=== PATIENT | female | born 1965 | race Two or more races ===

== ENCOUNTER 2020-07-26 09:14 | Outpatient (REF) | payer MEDICAID, SELFPAY ==
[2020-07-26 10:14] LABS: MANUAL DIFF FLAG NO
[2020-07-26 10:22] LABS: Basophils Percent Auto 0.4 % (0-2); Eosinophils Absolute Auto 0.2 X10*3/uL (0.0-0.4); Eosinophils Percent Auto 2.5 % (0-4); Hematocrit 30.2 % (37-47); Hemoglobin 9.8 g/dl (12.0-16.0); Imm Gran Abs Auto 0.01 X10*3/uL (0.00-0.03); Imm Gran Pct Auto 0.1 % (0.0-0.4); Lymphocytes Absolute Auto 2.2 X10*3/uL (1.2-4.9); Lymphocytes Percent Auto 28.3 % (20-40); Mean Corpuscular HGB Conc 32.5 g/dl (31.0-35.0); Mean Corpuscular Hemoglobin 28.7 pg (27.0-33.0); Mean Corpuscular Volume 88.3 fL (80-98); Mean Platelet Volume 10.4 fL (9.4-12.3); Monocytes Absolute Auto 0.6 X10*3/uL (0.1-1.2); Monocytes Percent Auto 7.4 % (2-11); Neutrophils Absolute Auto 4.7 X10*3/uL (2.0-8.3); Neutrophils Percent Auto 61.3 % (45-73); Platelet Count 215 X10*3/uL (160-400); Red Blood Count 3.42 X10*6/uL (4.20-5.50); White Blood Count 7.6 X10*3/uL (4.8-10.8)
[2020-07-26 10:46] LABS: Albumin Level 3.6 g/dL (3.5-5.0); Anion Gap 12 (12-20); Blood Urea Nitrogen 31 mg/dL (9-16); Calcium 8.7 mg/dL (8.4-10.2); Carbon Dioxide 29 mmol/L (22-29); Chloride 103 mmol/L (96-108); Estimated Glomerular Filt Rate 23; Phosphorus 3.6 mg/dL (2.7-4.5); Potassium 4.9 mmol/l (3.3-5.1); Sodium 139 mmol/L (135-145)
[2020-07-26 11:14] LABS: Renal w Reflex Lab Use Only Order verified
[2020-07-29 19:31] LABS: Calcium (PTHI) 9.2 mg/dL (8.6-10.4); PTHI 111 pg/mL (14-64)
== END 2020-07-26 09:15 | disposition home or self-care (01) ==
LOC: HO.LAB 09:14
PROVIDERS: PCP Family Medicine; Visit Provider Internal Medicine Nephrology
DX: E11.22 Type 2 diabetes mellitus with diabetic chronic kidney disease (principal); I12.9 Hypertensive chronic kidney disease with stage 1 through stage 4 chronic kidney disease, or unspecified chronic kidney disease; N18.30 Chronic kidney disease, stage 3 unspecified; E11.21 Type 2 diabetes mellitus with diabetic nephropathy
CPT/HCPCS: 36415; 80051; 82040; 82310; 82565; 83970; 84100; 84520; 85025

== ENCOUNTER 2020-09-18 12:59 | Outpatient (REF) | payer MEDICAID, SELFPAY | END 2020-09-18 13:00 | disposition home or self-care (01) | LOC: HO.LAB 12:59 | PROVIDERS: PCP Family Medicine; Visit Provider Internal Medicine | DX: Z20.828 Contact with and (suspected) exposure to other viral communicable diseases (principal) | CPT/HCPCS: C9803; U0003 ==

== ENCOUNTER 2020-10-10 12:17 | Outpatient (REF) | payer MEDICAID, SELFPAY ==
--- NOTE | 2020-10-10 12:21 | MM_ITS ---
EXAMINATION: MM SCREENING DIGITAL BREAST TOMOSYNTHESIS, BILATERAL CLINICAL INFORMATION: Screening. Asymptomatic. The lifetime risk of breast cancer based on the Tyrer-Cuzick Model is 5%. COMPARISON: Mammography: 02/24/2018, 08/23/2017, 02/17/2017, 02/09/2017 TECHNIQUE: Digital breast tomosynthesis is performed in both the craniocaudal and mediolateral oblique views along with computer-aided detection (CAD). Synthesized 2D images are generated from the tomosynthesis. FINDINGS: There are scattered areas of fibroglandular density (ACR BI-RADS breast composition Category b). There are no significant masses, abnormal calcifications, or other abnormalities. Parenchymal pattern is similar to prior exams. Again, there is a stable asymmetric density posterior outer left breast on CC view previously under surveillance. There is no correlate on the MLO projection or interval developing density. Scattered bilateral round and vascular calcifications are present. No significant changes. MM/MM tomosynthesis screening BI IMPRESSION: There are no significant changes from prior exams. ASSESSMENT: BI-RADS 2: Benign RECOMMENDATION: Routine annual mammography screening. This patient's information was entered into a reminder system with a target due date for their next mammogram.
== END 2020-10-10 12:18 | disposition home or self-care (01) ==
LOC: HO.MAMMO 12:17
PROVIDERS: PCP Family Medicine; Visit Provider Family Medicine
DX: Z12.31 Encounter for screening mammogram for malignant neoplasm of breast (principal)
CPT/HCPCS: 77063; 77067

== ENCOUNTER 2021-06-12 12:22 | Outpatient (REF) | payer MEDICAID, SELFPAY | END 2021-06-12 12:23 | disposition home or self-care (01) | LOC: HO.LAB 12:22 | PROVIDERS: PCP Family Medicine; Visit Provider Internal Medicine | DX: Z20.822 Contact with and (suspected) exposure to COVID-19 (principal) | CPT/HCPCS: C9803; U0003; U0005 ==

== ENCOUNTER → 2022-06-26 20:00 | Outpatient (REF) | payer MEDICAID, SELFPAY | LOC: HO.SL 20:00 | PROVIDERS: Visit Provider Family Medicine | DX: G47.33 Obstructive sleep apnea (adult) (pediatric) (principal) | CPT/HCPCS: 95811 ==

== ENCOUNTER 2022-08-11 11:15 | Outpatient (REF) | payer MEDICAID, SELFPAY ==
--- NOTE | ~2022-08-11 | XR_ITS ---
EXAMINATION: XR CHEST CLINICAL INFORMATION: Dyspnea COMPARISON: Chest radiographs 05/15/2019 TECHNIQUE: 2 views of the chest were obtained. FINDINGS: The cardiopericardial silhouette is mildly enlarged. The vascularity is normal. There is no vascular congestion, airspace consolidation, groundglass opacity, or effusion. The hilar and mediastinal contours are normal. No acute bony abnormality. Again, multilevel degenerative changes thoracic spine with mild dextrocurvature. Bilateral cervical ribs. XR/XR chest 2V IMPRESSION: Mildly enlarged cardiopericardial silhouette. Lungs clear.
== END 2022-08-11 11:16 | disposition home or self-care (01) ==
LOC: HO.XRAY 11:15
PROVIDERS: PCP Family Medicine; Visit Provider Family Medicine
DX: R06.00 Dyspnea, unspecified (principal)
CPT/HCPCS: 71046

== ENCOUNTER → 2022-08-19 09:01 | Outpatient (REF) | payer MEDICAID, SELFPAY ==
--- NOTE | 2022-08-19 09:05 | CA_ITS ---
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 The calculated ejection fraction is 22% by biplane method. - The inferoseptal wall, the basal anteroseptal, and mid anteroseptal segments are akinetic. - There is severe global hypokinesis. - No obvious valvular pathology seen on this study. Findings Procedure Information Contrast agent, definity, is being given per protocol without apparent complications. Left Ventricle Moderately increased left ventricular cavity size. There is mildly increased left ventricular wall thickness. The left ventricular systolic function is severely decreased. The calculated ejection fraction is 22% by biplane method. There is severe global hypokinesis. Diastolic function is indeterminate on the basis of available data. Wall Motion Rest Echo Findings The inferoseptal wall, the basal anteroseptal, and mid anteroseptal segments are akinetic. Right Ventricle Normal right ventricular cavity size and systolic function. Atria The left atrium is mildly dilated. The right atrium is normal in size. Aortic Valve There is a normal trileaflet aortic valve. There is no aortic valve stenosis. There is no aortic valve regurgitation. Mitral Valve There is mild mitral annular calcification. There is mild mitral valve regurgitation. There is no mitral valve stenosis. Pulmonic Valve The pulmonic valve is likely normal. Tricuspid Valve There is trace tricuspid valve regurgitation. There is no evidence of pulmonary hypertension. Great Vessels The asc aorta is normal in size. Venous The inferior vena cava is normal in size and collapses greater than 50% with inspiration. Pericardium/Pleural There is no evidence of pericardial effusion. Prior Study Comparison No prior study available for comparison. Recommendations, Care & Conclusions No obvious valvular pathology seen on this study. Measurements 2D Linear Measurements IVSd: 1.27 0.6-0.9/0.6-1.0 cm LVIDd: 6.11 3.9-5.3/4.2-5.9 cm LVIDd Index: 3.43 2.4-3.2/2.2-3.1 cm/m2 LVIDs: 5.16 2.0-3.6 cm LVPWd: 1.07 0.7-1.1 cm LA Diam: 3.70 2.7-3.8/3.0-4.0 cm LAIDs Index: 2.08 1.5-2.3 cm/m2 LV Mass: 390.26 67-162/88-224 g LV Mass Index: 219.25 43-95/49-115 g/m2 LVOT Diam: 2.10 3.0+(-)1.3 cm 2D Systolic Function EF 4C: 25.50 >55% EF 2C: 20.40 >55% EF BiP: 22.30 >55% Mitral Valve MV VTI: 0.25 MV Pk Jhony: 1.62 MV Mn Jhony: 1.14 MV Pk Grad: 10.00 MV Mn Grad: 6.00 MV Pk E: 1.49 MV PK A: 0.44 MV Decel Time: 120.00 E/A: 3.40 PHT: 35.00 MVA PHT: 6.29 MVA Continuity: 2.28 Decel [place]: 12.41 Aortic Valve AoV Pk Jhony: 1.42 AoV Mn Jhony: 1.01 AoV VTI: 0.25 AoV Pk Grad: 8.00 Aov Mn Grad: 5.00 SHARMAINE Cont.VTI: 2.24 LVOT LVOT Pk Jhony: 0.95 LVOT Mn Jhony: 0.64 LVOT VTI: 0.16 LVOT Pk Grad: 4.00 LVOT Mn Grad: 2.00 LVOT Diam: 2.10 LVOT Area: 3.46 Diastolic Function MV Pk E: 1.49 MV Pk A: 0.44 E/A: 3.40 Right Ventricle TAPSE (mm): 20.90 TVS' Jhony: 13.20 Tricuspid Valve TR Pk Jhony: 1.71 TR Pk Grad: 12.00 RA Press: 3.00 Great Vessels Aorta Sinus of Valsalva: 3.17 2.0-3.[address] Ridge: 2.19 1.7-3.4 cm Ao Asc: 3.30 2.1-3.4 cm Updated in Other Vendor System with Status of Final Joselito Armenta MD electronically signed on 08/22/2022 12:38:44 PM with status of Final
== END ==
LOC: HO.CARD 09:01
PROVIDERS: PCP Family Medicine; Visit Provider Family Medicine
DX: R06.00 Dyspnea, unspecified (principal)
CPT/HCPCS: 93306; Q9957

== ENCOUNTER 2022-10-15 09:48 | Outpatient (REF) | payer MEDICAID, SELFPAY ==
--- NOTE | ~2022-10-15 | MM_ITS ---
EXAMINATION: MM SCREENING DIGITAL BREAST TOMOSYNTHESIS, BILATERAL CLINICAL INFORMATION: Screening. Asymptomatic. The lifetime risk of breast cancer based on the Tyrer-Cuzick Model is 5%. COMPARISON: Mammography: October 10, 2020 and studies dating back to October 08, 2011. TECHNIQUE: Digital breast tomosynthesis is performed in both the craniocaudal and mediolateral oblique views along with computer-aided detection (CAD). Synthesized 2D images are generated from the tomosynthesis. FINDINGS: There are scattered areas of fibroglandular density (ACR BI-RADS breast composition Category b). There are no new significant masses, abnormal calcifications, or other abnormalities. Some stable circumscribed densities are seen within the right breast. Stable region of asymmetric density is seen about the lateral aspect of the left breast. MM/MM tomosynthesis screening BI IMPRESSION: No significant changes from prior exam. ASSESSMENT: BI-RADS 2: Benign RECOMMENDATION: Routine annual mammography screening. This patient's information was entered into a reminder system with a target due date for their next mammogram.
== END 2022-10-15 09:49 | disposition home or self-care (01) ==
LOC: HO.MAMMO 09:48
PROVIDERS: Visit Provider Family Medicine
DX: Z12.31 Encounter for screening mammogram for malignant neoplasm of breast (principal)
CPT/HCPCS: 77063; 77067

== ENCOUNTER 2023-03-13 10:24 | Emergency (ER) | payer MEDICAID, SELFPAY ==
--- NOTE | ~2023-03-13 | XR_ITS ---
EXAMINATION: XR LUMBOSACRAL SPINE CLINICAL INFORMATION: Fall, pain COMPARISON: None available. TECHNIQUE: Three views of the lumbosacral spine. FINDINGS: There is normal lumbar lordosis. The vertebral alignment and disc is normal. There is mild loss of superior endplate L3 vertebra of indeterminate age. Mild ventral and lateral spondylosis seen throughout lumbar spine. The paravertebral soft tissues are normal. There is mild sclerosis right inferior SI joint likely sacroiliitis. XR/XR lumbar spine 2-3V IMPRESSION: 1. Mild loss of superior endplate L3 vertebra of indeterminate age. Consider CT or bone scan for further evaluation. No additional bony deformity seen to suspect any fracture There is mild ventral and lateral spondylosis lumbar spine. Mild
[2023-03-13 10:29] VITALS: BP 144/79; PULSE 91; RESP 18; TEMP 35.8; O2SAT 98; BMI 32.3
--- NOTE | 2023-03-13 11:12 | ED.FALL ---
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 Denies hitting her head or loss of consciousness. Patient reports could continued low back pain since her fall. She denies any radiation of pain. No numbness or tingling in the extremities. No numbness in the groin. No bowel or bladder incontinence. No fevers or chills. Patient is ambulatory. Related Data Previous Rx's Medication Instructions Recorded acetaminophen 325 mg tablet 650 mg PO Q4H PRN pain #30 tabs 03/13/23 (Tylenol) cyclobenzaprine 10 mg tablet 10 mg PO TID PRN muscle spasm #15 03/13/23 tabs lidocaine 5 % topical patch 1 patch topical DAILY #15 ea 03/13/23 (Lidoderm) Allergies Allergy/AdvReac Type Severity Reaction Status Date / Time No Known Allergies Allergy Verified 03/13/23 10:31 [No Known Allergies*] Review of Systems Review of Systems: Yes all other systems are reviewed and are negative Constitutional: Constitutional: Reports no additional constitutional complaints, Denies body ache(s), Denies chills, Denies fever(s), Denies headache(s) and Denies weakness Eyes: Eyes: Reports no additional eye complaints and Denies change in vision ENT: Reports system reviewed and no additional complaints, except as documented, Denies dizziness, Denies headache(s), Denies nasal congestion, Denies nasal discharge and Denies neck pain Cardiovascular: Cardiovascular: Reports no additional cardiovascular complaints, Denies chest pain, Denies leg edema and Denies dyspnea Respiratory: Respiratory: Reports no additional respiratory complaints, Denies cough and Denies dyspnea Gastrointestinal: Gastrointestinal: Reports no additional gastrointestinal complaints, Denies abdominal pain, Denies diarrhea, Denies nausea and Denies vomiting Genitourinary: Genitourinary: Reports no additional female genitourinary complaints and Denies urinary incontinence Musculoskeletal: Musculoskeletal: Reports no additional musculoskeletal complaints, Reports back pain, Denies arthralgias, Denies joint swelling, Denies neck pain, Denies numbness and Denies tingling Integumentary/Breasts: Skin/Breast: Reports system reviewed and no additional complaints, except as docu and Denies rash Neurologic: Reports system reviewed and no additional complaints, except as documented, Denies Abnormal speech present, Denies dizziness, Denies headache(s), Denies numbness, Denies tingling and Denies weakness PMFSH Past Medical History Attestation statement: The following information was validated with the patient. Source: old records reviewed and nursing notes reviewed Social History Social History Advance Directives: No Advance Directives Information Provided: No Physical Exam Vital Signs: Vital Signs: Last Vital Signs Temp 96.4 F L 03/13/23 10:29 Pulse 91 03/13/23 10:29 Resp 18 03/13/23 10:29 BP 144/79 H 03/13/23 10:29 Pulse Ox 98 03/13/23 10:29 O2 Del Method Room Air 03/13/23 10:29 BMI result Body Mass Index 32.3 Const: General: cooperative, healthy appearing, comfortable and no acute distress Orientation/consciousness: patient oriented x3 Limitations: no limitations HEENT: Head: Yes normal to inspection Ears: hearing grossly normal bilaterally General nose exam: Normal external nose present Face and sinus: Yes normal facial exam Mouth: Normal oral and palatal mucosa present Throat: Yes posterior oropharynx normal Eyes: General: appearance normal, both eyes and all related structures Pupils: Equal, round and reactive pupils present Neck: Neck: Yes normal visual inspection Chest: Chest palpation & inspection: normal inspection of the chest Resp: Effort & Inspection: normal respiratory effort Auscultation: clear to auscultation bilaterally Cardio: Rate: regular rate Rhythm: regular rhythm Peripheral pulses: Peripheral pulses 2+ throughout GI: Inspection: Yes normal to inspection Palpation (GI): Soft to palpation and nontender Auscultation: normal bowel sounds Back/Spine/Pelvis: Other: Tenderness the lumbar mid spine with no step-offs deformities Thoracic/Lumbar Spine: thoracic and lumbar spine normal to inspection Skin: General skin exam: no rashes or lesions noted Neuro: General: patient oriented x3, no focal motor deficits and normal sensation to monofilament Cranial nerves: Yes Equal, round and reactive pupils present Cognition (Neuro): normal cognition Speech: No Abnormal speech present Gait exam (Neuro): Normal gait present Motor exam (neuro): 5/5 motor strength present throughout Sensory Exam: Normal double simultaneous stimulation for sensation Deep tendon reflexes (DTR's): Right patellar reflex intensity grade: 2+ and Left patellar reflex intensity grade: 2+ Extrem: General: Yes normal to inspection Course Course Course Narrative: X-ray shows a possible compression fracture L3 age indeterminate. This was discussed with the patient. She will likely need to have additional imaging done outpatient. In the meantime will send her home with pain control. Reviewed worrisome signs and symptoms when to return to the emergency room. Comfortable plan for discharge home. Medications Administered Discontinued Medications Generic Name Dose Route Start Last Admin Trade Name Freq PRN Reason Stop Dose Admin Ketorolac Tromethamine 30 mg 03/13/23 11:25 03/13/23 11:28 Ketorolac Tromethamine 30 Mg/Ml Vial IM 03/13/23 11:26 30 mg ONCE ONE Administration Medical Decision Making Medical Decision Making [facility] Narrative: 57-year-old female here with lower back pain after slip and fall 4 days ago There is tenderness the mid spine. Will check x-ray No neurological deficits or red flag symptoms Will give Toradol IM Differential Diagnosis Differential Diagnoses: The differential diagnosis associated with the presentation includes Contusion Low concern for cord compression, cauda equina, fracture, epidural abscess, malignancy, renal colic, pyelonephritis, AAA Independent Interpretation I performed an independent interpretation of an: Plain X-Ray Interpretation: I independently reviewed the x-ray and agree with radiologist's report Radiology Impression Discussion of test interpretation with radiology: I have reviewed the radiologist's reading. Radiologist Impression: s of the lumbosacral spine. FINDINGS: There is normal lumbar lordosis. The vertebral alignment and disc is normal. There is mild loss of superior endplate L3 vertebra of indeterminate age. Mild ventral and lateral spondylosis seen throughout lumbar spine. The paravertebral soft tissues are normal. There is mild sclerosis right inferior SI joint likely sacroiliitis. XR/XR lumbar spine 2-3V IMPRESSION: 1.? Mild loss of superior endplate L3 vertebra of indeterminate age. Consider CT or bone scan for further evaluation. No additional bony deformity seen to suspect any fracture ?There is mild ventral and lateral spondylosis lumbar spine. Mild ? Discharge Plan Discharge Clinical Impression: Lumbar contusion Patient Disposition: Home, Self-Care Instructions: Acute Low Back Pain (ED), Contusion in Adults (ED) Additional Instructions: Ice to the area Gentle stretching No heavy lifting or bending Follow-up with doctor for any persistent symptoms Return for numbness in the groin, bowel incontinence, fever There may be a small compression fracture in your lower spine. It is difficult to determine if this is a new finding or not. We recommend that you follow-up with your doctor for further evaluation Hielo a la josefina Estiramiento suave Sin levantar objetos pesados ??ni agacharse Seguimiento con el m?dico para cualquier s?ntoma persistente. Regrese por entumecimiento en la sherif, incontinencia intestinal, fiebre Puede cynthia enio madison?a fractura por compresi?n en la parte inferior de la columna. Es dif?cil determinar si se trata de un hallazgo nuevo o no. Le recomendamos que faye un seguimiento con luna m?dico para enio evaluaci?n adicional. Prescriptions: New lidocaine [Lidoderm] 5 % adhesive patch,medicated 1 patch topical DAILY Qty: 15 0RF Rx Instructions: leave on most painful area for up to 12 hrs cyclobenzaprine 10 mg tablet 10 mg PO TID PRN (Reason: muscle spasm) Qty: 15 0RF acetaminophen [Tylenol] 325 mg tablet 650 mg PO Q4H PRN (Reason: pain) Qty: 30 0RF Referrals: Anne Talamantes DO [Primary Care Provider] - 1 week Print Language: [place]
[2023-03-13] MEDS: Ketorolac Tromethamine 30 MG/ML VIAL IM (11:28)
== END 2023-03-13 12:42 | disposition home or self-care (01) ==
PROVIDERS: Emergency Provider Emergency Medicine; PCP Family Medicine
DX: S30.0XXA Contusion of lower back and pelvis, initial encounter (principal); W01.0XXA Fall on same level from slipping, tripping and stumbling without subsequent striking against object, initial encounter; Y93.E5 Activity, floor mopping and cleaning; Y92.010 Kitchen of single-family (private) house as the place of occurrence of the external cause; Y99.9 Unspecified external cause status
CPT/HCPCS: 72100; 96372; 99284; J1885

== ENCOUNTER 2023-06-02 14:43 | Outpatient (REF) | payer MEDICAID, SELFPAY ==
[2023-06-02 15:13] LABS: MANUAL DIFF FLAG NO
[2023-06-02 15:38] LABS: Basophils Absolute Auto 0.1 X10*3/uL (0.0-0.2); Basophils Percent Auto 0.6 % (0-2); Eosinophils Absolute Auto 0.4 X10*3/uL (0.0-0.4); Eosinophils Percent Auto 4.7 % (0-4); Hematocrit 29.3 % (37.0-47.0); Hemoglobin 9.5 g/dl (12.0-16.0); Imm Gran Abs Auto 0.03 X10*3/uL (0.00-0.03); Imm Gran Pct Auto 0.4 % (0.0-0.4); Lymphocytes Absolute Auto 1.3 X10*3/uL (1.2-4.9); Lymphocytes Percent Auto 16.9 % (20-40); Mean Corpuscular HGB Conc 32.4 g/dl (31.0-35.0); Mean Corpuscular Hemoglobin 28.5 pg (27.0-33.0); Mean Platelet Volume 10.2 fL (9.4-12.3); Monocytes Absolute Auto 0.5 X10*3/uL (0.1-1.2); Monocytes Percent Auto 6.5 % (2-11); Neutrophils Absolute Auto 5.6 x10*3/uL (2.0-8.3); Neutrophils Percent Auto 70.9 % (45-73); Platelet Count 187 X10*3/uL (160-400); Red Blood Count 3.33 X10*6/uL (4.20-5.50); Red Cell Distribution Width 13.6 % (11.0-16.0); White Blood Count 7.9 X10*3/uL (4.8-10.8)
[2023-06-02 17:12] LABS: Vitamin D 25-OH Total 37.7 ng/mL (>30)
[2023-06-02 17:51] LABS: Anion Gap 14 (12-20); Blood Urea Nitrogen 55 mg/dL (9-16); Calcium 9.4 mg/dL (8.4-10.2); Carbon Dioxide 24 mmol/L (22-29); Chloride 108 mmol/L (96-108); Estimated Glomerular Filt Rate 9; Iron 38 mcg/dL (30-160); Percent Iron Saturation 21 % (15-50); Phosphorus 3.9 mg/dL (2.7-4.5); Sodium 141 mmol/L (135-145); Total Iron Binding Capacity 185 mcg/dL (228-428); Unsaturated Iron Binding 147 ug/dL
[2023-06-04 15:54] LABS: Calcium (PTHI) 8.8 mg/dL (8.6-10.4); PTHI 454 pg/mL (16-77)
== END 2023-06-02 14:44 | disposition home or self-care (01) ==
LOC: HO.LAB 14:43
PROVIDERS: PCP Family Medicine; Visit Provider Internal Medicine Nephrology
DX: I12.9 Hypertensive chronic kidney disease with stage 1 through stage 4 chronic kidney disease, or unspecified chronic kidney disease (principal); E11.22 Type 2 diabetes mellitus with diabetic chronic kidney disease; N18.4 Chronic kidney disease, stage 4 (severe); E11.21 Type 2 diabetes mellitus with diabetic nephropathy
CPT/HCPCS: 36415; 80051; 82306; 82310; 82565; 83540; 83970; 84100; 84520; 85025

== ENCOUNTER 2023-08-06 10:40 | Outpatient (REF) | payer MEDICAID, SELFPAY ==
[2023-08-06 11:07] LABS: MANUAL DIFF FLAG NO
[2023-08-06 12:04] LABS: Basophils Percent Auto 0.6 % (0-2); Eosinophils Absolute Auto 0.2 X10*3/uL (0.0-0.4); Eosinophils Percent Auto 3.2 % (0-4); Hematocrit 32.8 % (37.0-47.0); Hemoglobin 10.6 g/dl (12.0-16.0); Imm Gran Abs Auto 0.01 X10*3/uL (0.00-0.03); Imm Gran Pct Auto 0.2 % (0.0-0.4); Lymphocytes Absolute Auto 1.6 X10*3/uL (1.2-4.9); Lymphocytes Percent Auto 24.3 % (20-40); Mean Corpuscular HGB Conc 32.3 g/dl (31.0-35.0); Mean Corpuscular Hemoglobin 28.5 pg (27.0-33.0); Mean Corpuscular Volume 88.2 fL (80.0-98.0); Mean Platelet Volume 10.5 fL (9.4-12.3); Monocytes Absolute Auto 0.5 X10*3/uL (0.1-1.2); Monocytes Percent Auto 7.6 % (2-11); Neutrophils Absolute Auto 4.2 x10*3/uL (2.0-8.3); Neutrophils Percent Auto 64.1 % (45-73); Platelet Count 158 X10*3/uL (160-400); Red Blood Count 3.72 X10*6/uL (4.20-5.50); Red Cell Distribution Width 13.1 % (11.0-16.0); White Blood Count 6.5 X10*3/uL (4.8-10.8)
[2023-08-06 12:53] LABS: Anion Gap 13 (12-20); Blood Urea Nitrogen 60 mg/dL (9-16); Calcium 9.4 mg/dL (8.4-10.2); Carbon Dioxide 24 mmol/L (22-29); Chloride 106 mmol/L (96-108); Glucose Random 92 mg/dL (60-115); Potassium 4.7 mmol/L (3.3-5.1); Sodium 138 mmol/L (135-145)
[2023-08-06 13:52] LABS: Estimated Glomerular Filt Rate 10
[2023-08-06 15:22] LABS: INTERNATIONAL NORM RATIO 0.9 (0.9-1.1); Prothrombin Time 11.1 SEC (11.1-13.3)
== END 2023-08-06 10:41 | disposition home or self-care (01) ==
LOC: HO.LAB 10:40
PROVIDERS: PCP Family Medicine; Visit Provider Internal Medicine Cardiovascular Disease
DX: I50.22 Chronic systolic (congestive) heart failure (principal)
CPT/HCPCS: 36415; 80048; 85025; 85610

== ENCOUNTER 2023-09-22 09:59 | Outpatient (REF) | payer MEDICAID, SELFPAY ==
[2023-09-22 10:20] LABS: MANUAL DIFF FLAG NO
[2023-09-22 11:11] LABS: Basophils Percent Auto 0.5 % (0-2); Eosinophils Absolute Auto 0.2 X10*3/uL (0.0-0.4); Eosinophils Percent Auto 3.8 % (0-4); Hematocrit 28.6 % (37.0-47.0); Hemoglobin 9.3 g/dl (12.0-16.0); Imm Gran Abs Auto 0.01 X10*3/uL (0.00-0.03); Imm Gran Pct Auto 0.2 % (0.0-0.4); Lymphocytes Absolute Auto 1.6 X10*3/uL (1.2-4.9); Lymphocytes Percent Auto 28.3 % (20-40); Mean Corpuscular HGB Conc 32.5 g/dl (31.0-35.0); Mean Corpuscular Hemoglobin 28.3 pg (27.0-33.0); Mean Corpuscular Volume 86.9 fL (80.0-98.0); Mean Platelet Volume 10.2 fL (9.4-12.3); Monocytes Absolute Auto 0.5 X10*3/uL (0.1-1.2); Monocytes Percent Auto 9.5 % (2-11); Neutrophils Absolute Auto 3.2 x10*3/uL (2.0-8.3); Neutrophils Percent Auto 57.7 % (45-73); Platelet Count 126 X10*3/uL (160-400); Red Blood Count 3.29 X10*6/uL (4.20-5.50); Red Cell Distribution Width 13.3 % (11.0-16.0); White Blood Count 5.6 X10*3/uL (4.8-10.8)
[2023-09-22 11:45] LABS: Parathyroid Hormone Intact 772.3 pg/mL (8.7-77.1)
[2023-09-22 11:57] LABS: Anion Gap 12 (12-20); Blood Urea Nitrogen 63 mg/dL (9-16); Calcium 8.5 mg/dL (8.4-10.2); Carbon Dioxide 23 mmol/L (22-29); Chloride 107 mmol/L (96-108); Estimated Glomerular Filt Rate 8; Iron 49 mcg/dL (30-160); Percent Iron Saturation 28 % (15-50); Phosphorus 5.9 mg/dL (2.7-4.5); Potassium 4.3 mmol/L (3.3-5.1); Sodium 138 mmol/L (135-145); Total Iron Binding Capacity 174 mcg/dL (228-428); Unsaturated Iron Binding 125 ug/dL
[2023-09-22 12:08] LABS: Vitamin D 25-OH Total 38.6 ng/mL (>30)
== END 2023-09-22 10:00 | disposition home or self-care (01) ==
LOC: HO.LAB 09:59
PROVIDERS: PCP Family Medicine; Visit Provider Internal Medicine Nephrology
DX: E11.21 Type 2 diabetes mellitus with diabetic nephropathy (principal); E11.22 Type 2 diabetes mellitus with diabetic chronic kidney disease; I12.9 Hypertensive chronic kidney disease with stage 1 through stage 4 chronic kidney disease, or unspecified chronic kidney disease; N18.4 Chronic kidney disease, stage 4 (severe)
CPT/HCPCS: 36415; 80051; 82306; 82310; 82565; 83540; 83970; 84100; 84520; 85025

== ENCOUNTER 2023-10-22 14:51 | Outpatient (AMB) | payer MEDICAID, SELFPAY ==
--- NOTE | 2023-10-22 14:52 | HO.NEPHOV ---
HPI HPI Comments History of Present Illness Details I would the privilege of seeing Jazmine in follow-up of her chronic kidney disease and hypertension. She has a diagnosis of cardiomyopathy and has been closely followed up by reel winder, given her ejection fraction was 20%. At the time she was on lisinopril which was discontinued and was started on Entresto. She also has been on Farxiga. Her blood sugars have been better but recently her serum creatinine has gone up significantly and she was asked to hold her Entresto all together. She denies any hypoglycemia, orthostatic symptoms, nausea, vomiting, diarrhea or urinary symptoms. She has not taken any nonsteroidal anti-inflammatories. All other systems have been reviewed and were negative. [facility] Medical History (Updated 10/29/23 @ 14:24 by Rogerio Martinez MD) Cardiomyopathy Chronic kidney disease, stage 4 (severe) Hypertension Type 2 diabetes mellitus with diabetic nephropathy Vital Signs 10/22/23 14:54 Height 5 ft 1 in Weight 177 lb 4 oz BMI 33.5 BP 150/80 H Blood Pressure Location Rt brachial Pulse 93 Pulse Source Pulse Oximeter Pulse Oximetry (%) 98 Oxygen Delivery Method Room Air Physical Exam Vital Signs: Last Vital Signs Pulse 93 10/22/23 14:54 BP 150/80 H 10/22/23 14:54 Pulse Ox 98 10/22/23 14:54 Oxygen Delivery Method Room Air 10/22/23 14:54 BMI result Body Mass Index 33.5 Const General: comfortable and no acute distress Orientation/consciousness: patient oriented x3 HEENT Head: Yes normocephalic Mouth: Normal oral and palatal mucosa present Eyes EOM: EOMs intact bilaterally Neck Neck: Yes supple Resp Auscultation: clear to auscultation bilaterally Cardio Jugular venous distension: no JVD Rate: regular rate GI Palpation (GI): Soft to palpation Auscultation: normal bowel sounds General: Yes no CVA tenderness Back/Spine/Pelvis Back: no CVA tenderness Skin General skin exam: no rashes or lesions noted Neuro General: patient oriented x3 and moves all extremities Extrem General: Yes no pedal edema Assessment & Plan Assessment & Plan (1) Chronic kidney disease, stage 4 (severe): Code(s): N18.4 - Chronic kidney disease, stage 4 (severe) (2) Hypertension: Code(s): I10 - Essential (primary) hypertension Qualifiers: Hypertension type: primary hypertension Qualified Code(s): I10 - Essential (primary) hypertension (3) Cardiomyopathy: Code(s): I42.9 - Cardiomyopathy, unspecified Qualifiers: Cardiomyopathy type: other Qualified Code(s): I42.8 - Other cardiomyopathies (4) Secondary hyperparathyroidism (of renal origin): Code(s): N25.81 - Secondary hyperparathyroidism of renal origin (5) Diabetic nephropathy: Code(s): E11.21 - Type 2 diabetes mellitus with diabetic nephropathy Qualifiers: Diabetes mellitus type: type 2 Qualified Code(s): E11.21 - Type 2 diabetes mellitus with diabetic nephropathy (6) Anemia in chronic kidney disease: Code(s): N18.9 - Chronic kidney disease, unspecified; D63.1 - Anemia in chronic kidney disease Qualifiers: Chronic kidney disease stage: stage 4 (severe) Qualified Code(s): N18.4 - Chronic kidney disease, stage 4 (severe); D63.1 - Anemia in chronic kidney disease Plan She has been having progression of her renal disease. She was on Entresto which has been on put on hold since her recent LORIN. I held her Farxiga given her current GFR. She had a renal biopsy in the past which showed diabetic nephropathy. She also has retinopathy and neuropathy. She does not take any nonsteroidal anti-inflammatory medications. Her blood pressure is at goal. Hopefully her current tubular injury will resolve and her serum creatinine will settle down to baseline. If not she will need referral(which I shall arrange) to vascular surgery for an AV fistula formation. She does not take her sodium in the diet. I did not make any other medication changes today. All questions answered. Follow-up blood work ordered. Follow-up appointment given. Orders: Orders Electrolytes Today I10 - Essential (primary) hypertension, N18.4 - Chronic kidney disease, stage 4 (severe) Complete Blood Count Auto Diff Today I10 - Essential (primary) hypertension, N18.4 - Chronic kidney disease, stage 4 (severe) Parathyroid Hormone Intact Today I10 - Essential (primary) hypertension, N18.4 - Chronic kidney disease, stage 4 (severe) Ferritin Today I10 - Essential (primary) hypertension, N18.4 - Chronic kidney disease, stage 4 (severe) Blood Urea Nitrogen Today I10 - Essential (primary) hypertension, N18.4 - Chronic kidney disease, stage 4 (severe) Creatinine Today I10 - Essential (primary) hypertension, N18.4 - Chronic kidney disease, stage 4 (severe) Vitamin D 25-OH Total Today I10 - Essential (primary) hypertension, N18.4 - Chronic kidney disease, stage 4 (severe) Phosphorus Today I10 - Essential (primary) hypertension, N18.4 - Chronic kidney disease, stage 4 (severe) IRON PROFILE Today I10 - Essential (primary) hypertension, N18.4 - Chronic kidney disease, stage 4 (severe) Coding Level of Care Code Est Pt Level 4 (85058) Diagnoses Chronic kidney disease, stage 4 (severe) N18.4 Primary hypertension I10 Hypertension type: primary hypertension Other cardiomyopathy I42.8 Cardiomyopathy type: other Secondary hyperparathyroidism (of renal origin) N25.81 Diabetic nephropathy associated with type 2 diabetes mellitus E11.21 Diabetes mellitus type: type 2 Anemia in stage 4 chronic kidney disease N18.4; D63.1 Chronic kidney disease stage: stage 4 (severe) Results Reviewed Nephrology Results: Hgb 9.7 g/dl (12.0-16.0) L 10/29/23 WBC 5.7 X10*3/uL (4.8-10.8) 10/29/23 Plt Count 156 X10*3/uL (160-400) L 10/29/23 Sodium 138 mmol/L (135-145) 10/29/23 Potassium 3.9 mmol/L (3.3-5.1) 10/29/23 Chloride 108 mmol/L (96-108) 10/29/23 Carbon Dioxide 22 mmol/L (22-29) 10/29/23 BUN 44 mg/dL (9-16) H 10/29/23 Creatinine 5.27 mg/dL (0.5-1.4) H* 10/29/23 Calcium 8.5 mg/dL (8.4-10.2) 09/22/23 Phosphorus 3.1 mg/dL (2.7-4.5) 10/29/23 PTH Intact 700.1 pg/mL (8.7-77.1) H 10/29/23
[2023-10-22 14:54] VITALS: BP 150/80; PULSE 93; O2SAT 98; BMI 33.5
== END 2023-10-22 15:22 | disposition home or self-care (01) ==
PROVIDERS: PCP Family Medicine; Visit Provider Internal Medicine Nephrology
DX: I12.9 Hypertensive chronic kidney disease with stage 1 through stage 4 chronic kidney disease, or unspecified chronic kidney disease (principal); N18.4 Chronic kidney disease, stage 4 (severe); I42.8 Other cardiomyopathies; N25.81 Secondary hyperparathyroidism of renal origin; E11.21 Type 2 diabetes mellitus with diabetic nephropathy; D63.1 Anemia in chronic kidney disease
CPT/HCPCS: 99214

== ENCOUNTER → 2023-10-22 14:51 | Outpatient (BNVA) | payer MEDICAID, SELFPAY | PROVIDERS: PCP Family Medicine; Visit Provider Internal Medicine Nephrology | DX: I12.9 Hypertensive chronic kidney disease with stage 1 through stage 4 chronic kidney disease, or unspecified chronic kidney disease (principal); E11.22 Type 2 diabetes mellitus with diabetic chronic kidney disease; N18.4 Chronic kidney disease, stage 4 (severe); D63.1 Anemia in chronic kidney disease; I42.8 Other cardiomyopathies; N25.81 Secondary hyperparathyroidism of renal origin | CPT/HCPCS: 99212 ==

== ENCOUNTER 2023-10-29 10:25 | Outpatient (REF) | payer MEDICAID, SELFPAY ==
[2023-10-29 10:44] LABS: MANUAL DIFF FLAG NO
[2023-10-29 11:02] LABS: Basophils Percent Auto 0.5 % (0-2); Eosinophils Absolute Auto 0.2 X10*3/uL (0.0-0.4); Eosinophils Percent Auto 3.7 % (0-4); Hematocrit 29.1 % (37.0-47.0); Hemoglobin 9.7 g/dl (12.0-16.0); Imm Gran Abs Auto 0.02 X10*3/uL (0.00-0.03); Imm Gran Pct Auto 0.3 % (0.0-0.4); Lymphocytes Absolute Auto 1.3 X10*3/uL (1.2-4.9); Lymphocytes Percent Auto 23.2 % (20-40); Mean Corpuscular HGB Conc 33.3 g/dl (31.0-35.0); Mean Corpuscular Hemoglobin 28.9 pg (27.0-33.0); Mean Corpuscular Volume 86.6 fL (80.0-98.0); Mean Platelet Volume 9.7 fL (9.4-12.3); Monocytes Absolute Auto 0.6 X10*3/uL (0.1-1.2); Monocytes Percent Auto 9.8 % (2-11); Neutrophils Absolute Auto 3.6 x10*3/uL (2.0-8.3); Neutrophils Percent Auto 62.5 % (45-73); Platelet Count 156 X10*3/uL (160-400); Red Blood Count 3.36 X10*6/uL (4.20-5.50); Red Cell Distribution Width 13.6 % (11.0-16.0); White Blood Count 5.7 X10*3/uL (4.8-10.8)
[2023-10-29 11:33] LABS: Parathyroid Hormone Intact 700.1 pg/mL (8.7-77.1)
[2023-10-29 11:36] LABS: Anion Gap 12 (12-20); Blood Urea Nitrogen 44 mg/dL (9-16); Carbon Dioxide 22 mmol/L (22-29); Chloride 108 mmol/L (96-108); Iron 47 mcg/dL (30-160); Percent Iron Saturation 26 % (15-50); Phosphorus 3.1 mg/dL (2.7-4.5); Potassium 3.9 mmol/L (3.3-5.1); Sodium 138 mmol/L (135-145); Total Iron Binding Capacity 179 mcg/dL (228-428); Unsaturated Iron Binding 132 ug/dL
[2023-10-29 11:38] LABS: Estimated Glomerular Filt Rate 8
[2023-10-29 11:54] LABS: Ferritin 88 ng/mL (10-250); Vitamin D 25-OH Total 39.2 ng/mL (>30)
== END 2023-10-29 10:26 | disposition home or self-care (01) ==
LOC: HO.LAB 10:25
PROVIDERS: PCP Family Medicine; Visit Provider Internal Medicine Nephrology
DX: I12.9 Hypertensive chronic kidney disease with stage 1 through stage 4 chronic kidney disease, or unspecified chronic kidney disease (principal); N18.4 Chronic kidney disease, stage 4 (severe)
CPT/HCPCS: 36415; 80051; 82306; 82565; 82728; 83540; 83970; 84100; 84520; 85025

== ENCOUNTER 2023-11-05 13:35 | Outpatient (AMB) | payer MEDICAID, SELFPAY ==
[2023-11-05 13:54] VITALS: BP 130/70; PULSE 92; O2SAT 97; BMI 32.4
--- NOTE | 2023-11-05 13:54 | HO.NEPHOV ---
HPI HPI Comments History of Present Illness Details I would the privilege of seeing Jazmine in follow-up of her chronic kidney disease and hypertension. She has a diagnosis of cardiomyopathy and has been closely followed up by director of agriculture, given her ejection fraction was 20%. At the time she was on lisinopril which was discontinued and was started on Entresto. She also has been on Farxiga. Her blood sugars have been better but recently her serum creatinine has gone up significantly and she was asked to hold her Entresto all together. Her Farxiga was discontinued at the last office visit. She denies any hypoglycemia, orthostatic symptoms, nausea, vomiting, diarrhea or urinary symptoms. She has not taken any nonsteroidal anti-inflammatories. She denies any uremic symptoms. All other systems have been reviewed and were negative [facility] Medical History (Updated 10/29/23 @ 14:24 by Rogerio Martinez MD) Cardiomyopathy Chronic kidney disease, stage 4 (severe) Hypertension Type 2 diabetes mellitus with diabetic nephropathy Vital Signs 11/05/23 13:54 Height 5 ft 1 in Weight 171 lb 8 oz BMI 32.4 BP 130/70 Blood Pressure Location Rt brachial Position Sitting Pulse 92 Pulse Source Pulse Oximeter Pulse Oximetry (%) 97 Oxygen Delivery Method Room Air Physical Exam Vital Signs: Last Vital Signs Pulse 92 11/05/23 13:54 BP 130/70 11/05/23 13:54 Pulse Ox 97 11/05/23 13:54 Oxygen Delivery Method Room Air 11/05/23 13:54 BMI result Body Mass Index 32.4 Const General: comfortable and no acute distress Orientation/consciousness: patient oriented x3 HEENT Head: Yes normocephalic Mouth: Normal oral and palatal mucosa present Eyes EOM: EOMs intact bilaterally Neck Neck: Yes supple Resp Auscultation: clear to auscultation bilaterally Cardio Jugular venous distension: no JVD Rate: regular rate GI Palpation (GI): Soft to palpation Auscultation: normal bowel sounds General: Yes no CVA tenderness Back/Spine/Pelvis Back: no CVA tenderness Skin General skin exam: no rashes or lesions noted Neuro General: patient oriented x3 and moves all extremities Extrem General: Yes no pedal edema Assessment & Plan Assessment & Plan (1) Chronic kidney disease, stage 4 (severe): Code(s): N18.4 - Chronic kidney disease, stage 4 (severe) (2) Hypertension: Code(s): I10 - Essential (primary) hypertension Qualifiers: Hypertension type: primary hypertension Qualified Code(s): I10 - Essential (primary) hypertension (3) Secondary hyperparathyroidism (of renal origin): Code(s): N25.81 - Secondary hyperparathyroidism of renal origin (4) Diabetic nephropathy: Code(s): E11.21 - Type 2 diabetes mellitus with diabetic nephropathy Qualifiers: Diabetes mellitus type: type 2 Qualified Code(s): E11.21 - Type 2 diabetes mellitus with diabetic nephropathy (5) Anemia in chronic kidney disease: Code(s): N18.9 - Chronic kidney disease, unspecified; D63.1 - Anemia in chronic kidney disease Qualifiers: Chronic kidney disease stage: stage 4 (severe) Qualified Code(s): N18.4 - Chronic kidney disease, stage 4 (severe); D63.1 - Anemia in chronic kidney disease Plan She has been having progression of her renal disease. She was on Entresto which has been on put on hold since her recent LORIN. Her Farxiga was held at the last office visit given her current GFR. She had a renal biopsy in the past which showed diabetic nephropathy. She also has retinopathy and neuropathy. She does not take any nonsteroidal anti-inflammatory medications. Her blood pressure is at goal. Hopefully her current tubular injury will resolve and her serum creatinine will settle down to baseline. If not she will need referral(which I shall arrange) to vascular surgery for an AV fistula formation. She does not take her sodium in the diet. I did not make any other medication changes today. All questions answered. Follow-up blood work ordered. Follow-up appointment given Orders: Orders Electrolytes Today D63.1 - Anemia in chronic kidney disease, E11.21 - Type 2 diabetes mellitus with diabetic nephropathy, I10 - Essential (primary) hypertension, N18.4 - Chronic kidney disease, stage 4 (severe), N18.9 - Chronic kidney disease, unspecified, N25.81 - Secondary hyperparathyroidism of renal origin Blood Urea Nitrogen Today D63.1 - Anemia in chronic kidney disease, E11.21 - Type 2 diabetes mellitus with diabetic nephropathy, I10 - Essential (primary) hypertension, N18.4 - Chronic kidney disease, stage 4 (severe), N18.9 - Chronic kidney disease, unspecified, N25.81 - Secondary hyperparathyroidism of renal origin Creatinine Today D63.1 - Anemia in chronic kidney disease, E11.21 - Type 2 diabetes mellitus with diabetic nephropathy, I10 - Essential (primary) hypertension, N18.4 - Chronic kidney disease, stage 4 (severe), N18.9 - Chronic kidney disease, unspecified, N25.81 - Secondary hyperparathyroidism of renal origin Coding Level of Care Code Est Pt Level 3 (51708) Diagnoses Chronic kidney disease, stage 4 (severe) N18.4 Primary hypertension I10 Hypertension type: primary hypertension Secondary hyperparathyroidism (of renal origin) N25.81 Diabetic nephropathy associated with type 2 diabetes mellitus E11.21 Diabetes mellitus type: type 2 Anemia in stage 4 chronic kidney disease N18.4; D63.1 Chronic kidney disease stage: stage 4 (severe) Results Reviewed Nephrology Results: Hgb 9.7 g/dl (12.0-16.0) L 10/29/23 WBC 5.7 X10*3/uL (4.8-10.8) 10/29/23 Plt Count 156 X10*3/uL (160-400) L 10/29/23 Sodium 138 mmol/L (135-145) 10/29/23 Potassium 3.9 mmol/L (3.3-5.1) 10/29/23 Chloride 108 mmol/L (96-108) 10/29/23 Carbon Dioxide 22 mmol/L (22-29) 10/29/23 BUN 44 mg/dL (9-16) H 10/29/23 Creatinine 5.27 mg/dL (0.5-1.4) H* 10/29/23 Calcium 8.5 mg/dL (8.4-10.2) 09/22/23 Phosphorus 3.1 mg/dL (2.7-4.5) 10/29/23 PTH Intact 700.1 pg/mL (8.7-77.1) H 10/29/23
== END 2023-11-05 14:10 | disposition home or self-care (01) ==
PROVIDERS: PCP Family Medicine; Visit Provider Internal Medicine Nephrology
DX: I12.9 Hypertensive chronic kidney disease with stage 1 through stage 4 chronic kidney disease, or unspecified chronic kidney disease (principal); N18.4 Chronic kidney disease, stage 4 (severe); N25.81 Secondary hyperparathyroidism of renal origin; E11.21 Type 2 diabetes mellitus with diabetic nephropathy; D63.1 Anemia in chronic kidney disease
CPT/HCPCS: 99213

== ENCOUNTER → 2023-11-05 13:35 | Outpatient (BNVA) | payer MEDICAID, SELFPAY | PROVIDERS: PCP Family Medicine; Visit Provider Internal Medicine Nephrology | DX: E11.22 Type 2 diabetes mellitus with diabetic chronic kidney disease (principal); I12.9 Hypertensive chronic kidney disease with stage 1 through stage 4 chronic kidney disease, or unspecified chronic kidney disease; N18.4 Chronic kidney disease, stage 4 (severe); D63.1 Anemia in chronic kidney disease; E11.21 Type 2 diabetes mellitus with diabetic nephropathy; N25.81 Secondary hyperparathyroidism of renal origin | CPT/HCPCS: 99212 ==

== ENCOUNTER 2023-11-16 11:34 | Outpatient (REF) | payer MEDICAID, SELFPAY ==
[2023-11-16 12:45] LABS: Anion Gap 14 (12-20); Blood Urea Nitrogen 48 mg/dL (9-16); Carbon Dioxide 23 mmol/L (22-29); Chloride 105 mmol/L (96-108); Potassium 4.6 mmol/L (3.3-5.1); Sodium 137 mmol/L (135-145)
[2023-11-16 12:52] LABS: Estimated Glomerular Filt Rate 6
== END 2023-11-16 11:35 | disposition home or self-care (01) ==
LOC: HO.LAB 11:34
PROVIDERS: PCP Family Medicine; Visit Provider Internal Medicine Nephrology
DX: I12.9 Hypertensive chronic kidney disease with stage 1 through stage 4 chronic kidney disease, or unspecified chronic kidney disease (principal); E11.22 Type 2 diabetes mellitus with diabetic chronic kidney disease; E11.21 Type 2 diabetes mellitus with diabetic nephropathy; N18.4 Chronic kidney disease, stage 4 (severe); N25.81 Secondary hyperparathyroidism of renal origin; D63.1 Anemia in chronic kidney disease
CPT/HCPCS: 36415; 80051; 82565; 84520

== ENCOUNTER 2023-11-19 13:28 | Outpatient (AMB) | payer MEDICAID, SELFPAY ==
--- NOTE | 2023-11-19 14:14 | HO.NEPHOV ---
HPI HPI Comments History of Present Illness Details I would the privilege of seeing Jazmine in follow-up of her chronic kidney disease and hypertension. 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 At the time she was on lisinopril which was discontinued and was started on Entresto. She also has been on Farxiga. Her blood sugars have been better but recently her serum creatinine has gone up significantly and she was asked to hold her Entresto all together. Her Farxiga was discontinued recently. She denies any hypoglycemia, orthostatic symptoms, nausea, vomiting, diarrhea or urinary symptoms. She has not taken any nonsteroidal anti-inflammatories. She denies any uremic symptoms. All other systems have been reviewed and were negative [facility] Medical History (Updated 10/29/23 @ 14:24 by Rogerio Martinez MD) Cardiomyopathy Chronic kidney disease, stage 4 (severe) Hypertension Type 2 diabetes mellitus with diabetic nephropathy Vital Signs 11/19/23 14:15 Height 5 ft 1 in Weight 169 lb 4 oz BMI 32.0 BP 132/80 Blood Pressure Location Lt brachial Position Sitting Pulse 92 Pulse Source Pulse Oximeter Pulse Oximetry (%) 98 Oxygen Delivery Method Room Air Physical Exam Const General: comfortable and no acute distress Orientation/consciousness: patient oriented x3 HEENT Head: Yes normocephalic Mouth: Normal oral and palatal mucosa present Eyes EOM: EOMs intact bilaterally Neck Neck: Yes supple Resp Auscultation: clear to auscultation bilaterally Cardio Jugular venous distension: no JVD Rate: regular rate GI Palpation (GI): Soft to palpation Auscultation: normal bowel sounds General: Yes no CVA tenderness Back/Spine/Pelvis Back: no CVA tenderness Skin General skin exam: no rashes or lesions noted Neuro General: patient oriented x3 and moves all extremities Extrem General: Yes no pedal edema Assessment & Plan Assessment & Plan (1) Secondary hyperparathyroidism (of renal origin): Code(s): N25.81 - Secondary hyperparathyroidism of renal origin (2) Hypertension: Code(s): I10 - Essential (primary) hypertension Qualifiers: Hypertension type: primary hypertension Qualified Code(s): I10 - Essential (primary) hypertension (3) Chronic kidney disease, stage 4 (severe): Code(s): N18.4 - Chronic kidney disease, stage 4 (severe) Plan She has been having progression of her renal disease. She was on Entresto which has been on put on hold since her recent LORIN. Her Farxiga was held at the last office visit given her current GFR. She had a renal biopsy in the past which showed diabetic nephropathy. She also has retinopathy and neuropathy. She does not take any nonsteroidal anti-inflammatory medications. Her blood pressure is at goal. Hopefully her current tubular injury will resolve and her serum creatinine may settle down to baseline. I have referred her to vascular surgery for an AV fistula formation. I also referred her to [facility] [place]. She does not take her sodium in the diet. I have started her on calcitriol 0.25 mcg three times a week. She is coming to office in 2 weeks for Procrit. I did not make any other medication changes today. All questions answered. Follow-up appointment given Orders: Referrals Vascular Surgery Referral D63.1 - Anemia in chronic kidney disease, I10 - Essential (primary) hypertension, N18.4 - Chronic kidney disease, stage 4 (severe), N18.9 - Chronic kidney disease, unspecified, N25.81 - Secondary hyperparathyroidism of renal origin Transplant Surgery Referral E11.21 - Type 2 diabetes mellitus with diabetic nephropathy, I10 - Essential (primary) hypertension, N18.4 - Chronic kidney disease, stage 4 (severe) Medications: New calcitriol administer after dialysis on dialysis days 0.25 mcg PO 3XW 30 days 13 caps 3RF Coding Level of Care Code Est Pt Level 4 (77495) Diagnoses Secondary hyperparathyroidism (of renal origin) N25.81 Primary hypertension I10 Hypertension type: primary hypertension Chronic kidney disease, stage 4 (severe) N18.4 Results Reviewed Nephrology Results: Hgb 9.7 g/dl (12.0-16.0) L 10/29/23 WBC 5.7 X10*3/uL (4.8-10.8) 10/29/23 Plt Count 156 X10*3/uL (160-400) L 10/29/23 Sodium 137 mmol/L (135-145) 11/16/23 Potassium 4.6 mmol/L (3.3-5.1) 11/16/23 Chloride 105 mmol/L (96-108) 11/16/23 Carbon Dioxide 23 mmol/L (22-29) 11/16/23 BUN 48 mg/dL (9-16) H 11/16/23 Creatinine 7.13 mg/dL (0.5-1.4) H* 11/16/23 Calcium 8.5 mg/dL (8.4-10.2) 09/22/23 Phosphorus 3.1 mg/dL (2.7-4.5) 10/29/23 PTH Intact 700.1 pg/mL (8.7-77.1) H 10/29/23
[2023-11-19 14:15] VITALS: BP 132/80; PULSE 92; O2SAT 98; BMI 32.0
== END 2023-11-19 14:27 | disposition home or self-care (01) ==
PROVIDERS: PCP Family Medicine; Visit Provider Internal Medicine Nephrology
DX: N25.81 Secondary hyperparathyroidism of renal origin (principal); I12.9 Hypertensive chronic kidney disease with stage 1 through stage 4 chronic kidney disease, or unspecified chronic kidney disease; N18.4 Chronic kidney disease, stage 4 (severe)
CPT/HCPCS: 99214

== ENCOUNTER → 2023-11-19 13:28 | Outpatient (BNVA) | payer MEDICAID, SELFPAY | PROVIDERS: PCP Family Medicine; Visit Provider Internal Medicine Nephrology | DX: I12.9 Hypertensive chronic kidney disease with stage 1 through stage 4 chronic kidney disease, or unspecified chronic kidney disease (principal); N18.4 Chronic kidney disease, stage 4 (severe); N25.81 Secondary hyperparathyroidism of renal origin | CPT/HCPCS: 99212 ==

== ENCOUNTER 2023-11-25 10:28 | Outpatient (AMB) | payer MEDICAID, SELFPAY ==
[2023-11-25 10:30] VITALS: BMI 31.9
--- NOTE | 2023-11-25 10:30 | A.OFFVIS_ITS ---
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 Compensation Manager Required: Yes Compensation Manager Language: Circular Distributor Name: Lavon [id number] Information Interpreted: clinical only Accompanied by: Self / Same As Patient Allergies No Known Allergies [No Known Allergies*] Allergy (Verified 11/25/23 10:41) HPI LOCOMOTIVE ENGINEER ELECTRIC/ Urgent Referral AVF HPI Details Very pleasant 58 year Year old patient presents for chronic renal insufficiency and potential dialysis access. Reason for dialysis access includes chronic kidney disease and hypertension Current GFR 6 She is not currently on dialysis Patient does have a left-sided defibrillator Patient denies any previous fistular graft placement Expected time to dialysis is less than 6 months or is currently on dialysis Hand dominance right Patient now presents for evaluation of permanent dialysis access [facility] Medical History Cardiomyopathy Chronic kidney disease, stage 4 (severe) Hypertension Type 2 diabetes mellitus with diabetic nephropathy Review of Systems Const All systems reviewed & are unremarkable except as noted in HPI and below Reports no additional complaints ENT Reports Normal hearing present Card Denies chest pain, Denies chest pain at rest, Denies chest pain with activity and Denies pedal edema Resp Denies cough GI Denies abdominal pain Musc Denies abnormal gait, Denies muscle cramps and Denies radiating pain into limb Skin/Breast Denies skin ulcer and Denies wounds Neuro Reports Normal hearing present and Denies abnormal gait Psych Reports no additional complaints Physical Exam Vital Signs: BMI result Body Mass Index 31.9 Const General: cooperative, healthy appearing and comfortable Orientation/consciousness: oriented to person, oriented to place and oriented to time HEENT Head: Yes normal to inspection Neck Neck: Yes normal visual inspection Carotids: no bruits Chest Chest palpation & inspection: normal inspection of the chest Resp Effort & Inspection: normal respiratory effort and able to speak in complete sentences Auscultation: clear to auscultation bilaterally, no crackles, no rales, no rhonchi and no wheezes Cardio Other: Patient has palpable brachial radial ulnar pulses bilaterally Normal Nish's test Rate: regular rate Rhythm: regular rhythm Heart sounds: S1 normal heart sound present and S2 normal heart sound present Bruits: no carotid bruits Peripheral pulses: Peripheral pulses 2+ throughout GI Inspection: Yes normal to inspection Skin Wounds: no wounds Hair: normal Neuro General: oriented to person, oriented to place and oriented to time Cranial nerves: Yes CN's II-XII intact bilaterally and Yes Normal hearing present Cognition (Neuro): normal cognition Motor exam (neuro): 5/5 motor strength present throughout Extrem Other: venous exam: No significant superficial varicosities or spider telangiectasias, minimal edema General: No clubbing, No cyanosis and No edema Psych Appearance: grossly normal Mental Status: mental status grossly normal Speech and movement: Normal speech and movement present Assessment & Plan Assessment & Plan (1) Chronic kidney disease, stage 4 (severe): Code(s): N18.4 - Chronic kidney disease, stage 4 (severe) Plan: In short patient has chronic kidney disease. She is very close to dialysis. Will try to expedite fistula placement as soon as possible. She will require left upper extremity fistula placement. Risks benefits complications including but not limited to bleeding infection steal and arm loss were discussed with her. She was in agreement. Thank you for allowing us to assist in her care. If there are any questions or concerns please do not hesitate to contact us. Orders: Orders US venous duplex UE LT Today N18.4 - Chronic kidney disease, stage 4 (severe) Coding Level of Care Code New Pt Level 4 (85636) Diagnoses Chronic kidney disease, stage 4 (severe) N18.4
== END 2023-11-25 11:10 | disposition home or self-care (01) ==
PROVIDERS: PCP Family Medicine; Visit Provider Surgery Vascular Surgery
DX: N18.4 Chronic kidney disease, stage 4 (severe) (principal)
CPT/HCPCS: 99204

== ENCOUNTER → 2023-11-25 10:28 | Outpatient (BNVA) | payer MEDICAID, SELFPAY | PROVIDERS: PCP Family Medicine; Visit Provider Surgery Vascular Surgery | DX: N18.4 Chronic kidney disease, stage 4 (severe) (principal) | CPT/HCPCS: 99202 ==

== ENCOUNTER 2023-12-01 10:08 | Outpatient (REF) | payer MEDICAID, SELFPAY ==
--- NOTE | ~2023-12-01 | US_ITS ---
EXAMINATION: US VENOUS WITH DOPPLER UPPER EXTREMITY. CLINICAL INFORMATION: Chronic kidney disease, stage IV. Please do left upper extremity vein mapping. COMPARISON: None available. TECHNIQUE: Vein mapping left upper extremity venous ultrasound was performed using grayscale, color Doppler, and spectral Doppler. FINDINGS: Basilic vein: Patent. Proximal upper arm: 0.4 cm diameter, 1.6 cm depth. Mid upper arm: 0.3 cm diameter, 1.5 cm depth. Distal upper arm: 0.3 cm diameter, 1.2 cm depth. Cephalic vein: Patent. At shoulder: 0.3 cm diameter, 1.7 cm depth. Proximal upper arm: 0.3 cm diameter, 1.3 cm depth. Mid upper arm: 0.4 cm diameter, 1.0 cm depth. Distal upper arm: 0.4 cm diameter, 0.7 cm depth. Antecubital fossa: 0.5 cm diameter, 0.3 cm depth. Proximal forearm: 0.3 cm diameter, 0.7 cm depth. Mid forearm: 0.3 cm diameter, 0.8 cm depth. At wrist: 0.3 cm diameter, 0.8 cm depth. Brachial artery: No atherosclerosis. Distal upper arm: Biphasic waveform, PSV 112 cm/s. 0.3 cm diameter, 2.1 cm depth. Radial artery: No atherosclerosis. Distal upper arm: Biphasic waveform, PSV 106 cm/s. 0.1 cm diameter, 0.9 cm depth. Ulnar artery: No atherosclerosis. Distal upper arm: Biphasic waveform, PSV 26 cm/s. 0.07 cm diameter, 0 point cm depth. US/US venous duplex UE LT IMPRESSION: Left upper extremity vein mapping as above.
== END 2023-12-01 10:09 | disposition home or self-care (01) ==
LOC: HO.US 10:08
PROVIDERS: PCP Family Medicine; Visit Provider Surgery Vascular Surgery
DX: E11.22 Type 2 diabetes mellitus with diabetic chronic kidney disease (principal); I12.9 Hypertensive chronic kidney disease with stage 1 through stage 4 chronic kidney disease, or unspecified chronic kidney disease; D63.1 Anemia in chronic kidney disease; E11.21 Type 2 diabetes mellitus with diabetic nephropathy; N25.81 Secondary hyperparathyroidism of renal origin; N18.5 Chronic kidney disease, stage 5
CPT/HCPCS: 93971; 96372; 99212; Q5106

== ENCOUNTER 2023-12-01 12:19 | Outpatient (AMB) | payer MEDICAID, SELFPAY ==
--- NOTE | 2023-12-01 12:32 | HO.NEPHOV ---
HPI HPI Comments History of Present Illness Details I would the privilege of seeing Jazmine in follow-up of her chronic kidney disease and hypertension. 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 At the time she was on lisinopril which was discontinued and was started on Entresto. She also has been on Farxiga. Her blood sugars have been better but recently her serum creatinine has gone up significantly and she was asked to hold her Entresto all together. Her Farxiga was discontinued recently. She denies any hypoglycemia, orthostatic symptoms, nausea, vomiting, diarrhea or urinary symptoms. She has not taken any nonsteroidal anti-inflammatories. She denies any uremic symptoms. She has seen Dr Riddle and is going to get AVF on of this month. All other systems have been reviewed and were negative [facility] Medical History Cardiomyopathy Chronic kidney disease, stage 4 (severe) Hypertension Type 2 diabetes mellitus with diabetic nephropathy Vital Signs 12/01/23 12:36 Height 5 ft 1 in Weight 171 lb 6 oz BMI 32.4 BP 136/70 Blood Pressure Location Rt brachial Position Sitting Pulse 90 Pulse Source Pulse Oximeter Pulse Oximetry (%) 99 Oxygen Delivery Method Room Air Physical Exam Vital Signs: Last Vital Signs Pulse 90 12/01/23 12:36 BP 136/70 12/01/23 12:36 Pulse Ox 99 12/01/23 12:36 Oxygen Delivery Method Room Air 12/01/23 12:36 BMI result Body Mass Index 32.4 Const General: comfortable and no acute distress Orientation/consciousness: patient oriented x3 HEENT Head: Yes normocephalic Mouth: Normal oral and palatal mucosa present Eyes EOM: EOMs intact bilaterally Neck Neck: Yes supple Resp Auscultation: clear to auscultation bilaterally Cardio Jugular venous distension: no JVD Rate: regular rate GI Palpation (GI): Soft to palpation Auscultation: normal bowel sounds General: Yes no CVA tenderness Back/Spine/Pelvis Back: no CVA tenderness Skin General skin exam: no rashes or lesions noted Neuro General: patient oriented x3 and moves all extremities Extrem General: Yes no pedal edema Office Meds epoetin clementina-epbx 10,000 unit/mL injection solution Performing Provider: Rogerio Martinez MD 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 subcut L UE 2 mL [id number] 02/25/26 0455-8856-56 [employer] Assessment & Plan Assessment & Plan (1) Anemia in chronic kidney disease: Code(s): N18.9 - Chronic kidney disease, unspecified; D63.1 - Anemia in chronic kidney disease Qualifiers: Chronic kidney disease stage: stage 4 (severe) Qualified Code(s): N18.4 - Chronic kidney disease, stage 4 (severe); D63.1 - Anemia in chronic kidney disease (2) Diabetic nephropathy: Code(s): E11.21 - Type 2 diabetes mellitus with diabetic nephropathy Qualifiers: Diabetes mellitus type: type 2 Qualified Code(s): E11.21 - Type 2 diabetes mellitus with diabetic nephropathy (3) Secondary hyperparathyroidism (of renal origin): Code(s): N25.81 - Secondary hyperparathyroidism of renal origin (4) Hypertension: Code(s): I10 - Essential (primary) hypertension Qualifiers: Hypertension type: primary hypertension Qualified Code(s): I10 - Essential (primary) hypertension (5) CKD stage 5 due to type 2 diabetes mellitus: Code(s): E11.22 - Type 2 diabetes mellitus with diabetic chronic kidney disease; N18.5 - Chronic kidney disease, stage 5 Plan She has been having progression of her renal disease. She was on Entresto which has been on put on hold since her recent LORIN. Her Farxiga was held given her current GFR. She had a renal biopsy in the past which showed diabetic nephropathy. She also has retinopathy and neuropathy. She does not take any nonsteroidal anti-inflammatory medications. Her blood pressure is at goal. She has seen vascular surgery for an AV fistula formation & its getting done on of this month. I also referred her to [facility] for transplant evaluation. She does not take her sodium in the diet. I gave her [id number] U of procrit in the office on her L UE. I did not make any other medication changes today. All questions answered. Follow-up appointment given Orders: Orders Creatinine Today D63.1 - Anemia in chronic kidney disease, E11.21 - Type 2 diabetes mellitus with diabetic nephropathy, E11.22 - Type 2 diabetes mellitus with diabetic chronic kidney disease, I10 - Essential (primary) hypertension, N18.5 - Chronic kidney disease, stage 5, N18.9 - Chronic kidney disease, unspecified, N25.81 - Secondary hyperparathyroidism of renal origin [facility] E[facility] Supplied Today D63.1 - Anemia in chronic kidney disease, N18.9 - Chronic kidney disease, unspecified Complete Blood Count Auto Diff Today D63.1 - Anemia in chronic kidney disease, E11.21 - Type 2 diabetes mellitus with diabetic nephropathy, E11.22 - Type 2 diabetes mellitus with diabetic chronic kidney disease, I10 - Essential (primary) hypertension, N18.5 - Chronic kidney disease, stage 5, N18.9 - Chronic kidney disease, unspecified, N25.81 - Secondary hyperparathyroidism of renal origin Calcium Today D63.1 - Anemia in chronic kidney disease, E11.21 - Type 2 diabetes mellitus with diabetic nephropathy, E11.22 - Type 2 diabetes mellitus with diabetic chronic kidney disease, I10 - Essential (primary) hypertension, N18.5 - Chronic kidney disease, stage 5, N18.9 - Chronic kidney disease, unspecified, N25.81 - Secondary hyperparathyroidism of renal origin Electrolytes Today D63.1 - Anemia in chronic kidney disease, E11.21 - Type 2 diabetes mellitus with diabetic nephropathy, E11.22 - Type 2 diabetes mellitus with diabetic chronic kidney disease, I10 - Essential (primary) hypertension, N18.5 - Chronic kidney disease, stage 5, N18.9 - Chronic kidney disease, unspecified, N25.81 - Secondary hyperparathyroidism of renal origin Blood Urea Nitrogen Today D63.1 - Anemia in chronic kidney disease, E11.21 - Type 2 diabetes mellitus with diabetic nephropathy, E11.22 - Type 2 diabetes mellitus with diabetic chronic kidney disease, I10 - Essential (primary) hypertension, N18.5 - Chronic kidney disease, stage 5, N18.9 - Chronic kidney disease, unspecified, N25.81 - Secondary hyperparathyroidism of renal origin Coding Level of Care Code Est Pt Level 4 (22361) Diagnoses Anemia in stage 4 chronic kidney disease N18.4; D63.1 Chronic kidney disease stage: stage 4 (severe) Diabetic nephropathy associated with type 2 diabetes mellitus E11.21 Diabetes mellitus type: type 2 Secondary hyperparathyroidism (of renal origin) N25.81 Primary hypertension I10 Hypertension type: primary hypertension CKD stage 5 due to type 2 diabetes mellitus E11.22; N18.5 Results Reviewed Nephrology Results: Hgb 9.7 g/dl (12.0-16.0) L 10/29/23 WBC 5.7 X10*3/uL (4.8-10.8) 10/29/23 Plt Count 156 X10*3/uL (160-400) L 10/29/23 Sodium 137 mmol/L (135-145) 11/16/23 Potassium 4.6 mmol/L (3.3-5.1) 11/16/23 Chloride 105 mmol/L (96-108) 11/16/23 Carbon Dioxide 23 mmol/L (22-29) 11/16/23 BUN 48 mg/dL (9-16) H 11/16/23 Creatinine 7.13 mg/dL (0.5-1.4) H* 11/16/23 Calcium 8.5 mg/dL (8.4-10.2) 09/22/23 Phosphorus 3.1 mg/dL (2.7-4.5) 10/29/23 PTH Intact 700.1 pg/mL (8.7-77.1) H 10/29/23
[2023-12-01 12:36] VITALS: BP 136/70; PULSE 90; O2SAT 99; BMI 32.4
== END 2023-12-01 12:48 | disposition home or self-care (01) ==
PROVIDERS: PCP Family Medicine; Visit Provider Internal Medicine Nephrology
DX: N18.4 Chronic kidney disease, stage 4 (severe) (principal); D63.1 Anemia in chronic kidney disease; E11.21 Type 2 diabetes mellitus with diabetic nephropathy; N25.81 Secondary hyperparathyroidism of renal origin; I12.9 Hypertensive chronic kidney disease with stage 1 through stage 4 chronic kidney disease, or unspecified chronic kidney disease; E11.22 Type 2 diabetes mellitus with diabetic chronic kidney disease; N18.5 Chronic kidney disease, stage 5; N18.9 Chronic kidney disease, unspecified
CPT/HCPCS: 99214

== ENCOUNTER 2023-12-13 08:58 | Day surgery (SDC) | payer MEDICAID, SELFPAY ==
--- NOTE | 2023-12-13 07:40 | MHC.SHP ---
Pre-Procedural Eval Section A - 24 Hr Update-Section A only Date of Service: 12/13/23 The patient is an INPATIENT: No Changes since office visit: Yes Patient answered all questions The patient has been examined within 24 hours of the surgical procedure. The History & Physical has been completed within 30 days and I have reviewed it.: Yes Section B - Complete if H&P > 30 days Chief Complaint: End stage renal disease Allergies: Allergies Allergy/AdvReac Type Severity Reaction Status Date / Time No Known Allergies Allergy Verified 12/01/23 12:38 [No Known Allergies*] Plan I have reviewed the history and physical and performed a pertinent physical examination on my patient. No changes have occurred unless specified. Time Spent With Patient Time: Total time managing care of this patient today ____ minutes.
[2023-12-13 09:13] VITALS: BMI 33.1
[2023-12-13 09:23] VITALS: BP 197/101; PULSE 101; RESP 16; TEMP 36.2; O2SAT 99
[2023-12-13 09:36] LABS: Glucose, Whole Blood 234 mg/dL (60-115)
[2023-12-13 09:40] VITALS: BP 174/95
--- NOTE | 2023-12-13 09:42 | HO.ANESPROP2 ---
HPI - Anesthesia Eval Consult details Narrative: 58 yo female oatient for creation of Left arm AV fistula. Cardiomyopathy. No cardiology assessment in chart. Patient's indoor landscape architect is Dr Ferro Anesthesia Pre-Procedure Meds Is the patient on any of the following meds?: Dulaglutide (Trulicity) (Last dose 11/28/23) If Yes to any meds - educate patient: Pt education - increased risk of aspiration PMFSH Active Problems Active Problems: All Active Problems (Updated 12/13/23 @ 09:44 by Leigh Garsia MD) CKD stage 5 due to type 2 diabetes mellitus (Acute) Anemia in chronic kidney disease (Acute) Diabetic nephropathy (Acute) Secondary hyperparathyroidism (of renal origin) (Acute) Cardiomyopathy (Acute) EF 22% 2021 Hypertension (Acute) Chronic kidney disease, stage 4 (severe) (Acute) Severe VICKI. Not using CPAP Pacemaker insertion 07/2023. Plkaced for SOB per patient Past Medical History Medical History Cardiomyopathy Chronic kidney disease, stage 4 (severe) Hypertension Type 2 diabetes mellitus with diabetic nephropathy Family History Family history of problems with anesthesia: No Surgical History History of Problems with Anesthesia: No Social History Social History Patient Tobacco Use Status: Never used Tobacco Use of substances other than those prescribed or required for medical reasons: No Are you DNR?: No Advance Directives: No Advance Directives Information Provided: Yes Meds Allergies Allergy/AdvReac Type Severity Reaction Status Date / Time No Known Allergies Allergy Verified 12/13/23 09:14 [No Known Allergies*] Home Medications Medication Instructions Recorded Confirmed Last Taken Type amitriptyline 50 mg tablet 50 mg PO BEDTIME 10/22/23 12/13/23 Unknown History aspirin 81 mg tablet,delayed 81 mg PO QAM 10/22/23 12/13/23 12/12/23 History release cholecalciferol (vitamin D3) 50 50 mcg PO QAM 10/22/23 12/13/23 Unknown History mcg (2,000 unit) capsule (Vitamin D3) dulaglutide 1.5 mg/0.5 mL mg subcut QWEEK 10/22/23 11/28/23 History subcutaneous pen injector (Trulicity) ferrous sulfate 325 mg (65 mg 325 mg PO QPM 10/22/23 12/13/23 Unknown History iron) tablet (FeroSul) insulin glargine 100 unit/mL (3 30 unit subcut BEDTIME 10/22/23 12/13/23 Unknown History mL) subcutaneous pen (Lantus Solostar U-100 Insulin) insulin lispro 100 unit/mL 8 - 18 unit subcut TID 10/22/23 12/13/23 Unknown History subcutaneous pen lancets 33 gauge (TRUEplus Lancets) #100 ea 10/22/23 Unknown History metoprolol tartrate 25 mg tablet 25 mg PO 10/22/23 Unknown History omeprazole 20 mg capsule,delayed 20 mg PO 10/22/23 Unknown History release pen needle, diabetic 32 gauge x #1,200 ea 10/22/23 Unknown History (Pentips) rosuvastatin 40 mg tablet 40 mg PO BEDTIME 10/22/23 12/13/23 Unknown History Exam Height,Weight and Vital Signs: Height 5 ft 1 in Weight 79.379 kg Last Vital Signs Temp 97.2 F 12/13/23 09:23 Pulse 101 H 12/13/23 09:23 Resp 16 12/13/23 09:23 BP 174/95 H 12/13/23 09:40 Pulse Ox 99 12/13/23 09:23 O2 Del Method Room Air 12/13/23 09:23 Pertinent Lab Results Pertinent Lab Results: Laboratory Tests 12/13/23 09:32 POC Glucose 234 H Airway Mallampati Class: III TM Dist: >3cm Neck ROM: Full Loose/Missing/Broken Teeth: Yes (Missing tooth top back right) Heart: RRR Lungs: CTAB Assessment and Plan Assessment Anesthesia Assessment: Anesthesia Plan Discussed and Chart Reviewed Final Anesthetic Review Family History of Problems with Anesthesia: No History of Problems with Anesthesia: No NPO: Yes ASA Class: IV Final Preanesthetic Review: No Changes in Pt Med Stat, Meds/Allgs Chart Reviewed, Consent Obtained/Reviewed and Anes Risks/Benef Reviewed Patient Risk: High Procedure Risk: Intermediate Assessment/Block/Sedation in SS: Assess/Block/Sedation- Anesthetic Plan Anesthetic Plan: Regional Block (Case discussed. Decision made to have procedure done under nerve block- for Left brachial plexus nerve block) Disposition: Standard PACU
--- NOTE | 2023-12-13 12:53 | W.PM.OPN ---
Operative Note Operative Note Date of Service: 12/13/23 Narrative: Operative note by [facility] Preoperative diagnosis: Chronic renal insufficiency Postoperative diagnosis: Same Procedure: Left upper extremity fistula creation brachiocephalic (direct) Surgeon:Ab Riddle M.D. Film Critic: Adryan Anesthesia: Block Specimens: None Drains: None Estimated blood loss: 50 mL Indications: Complex 58-year-old female history of chronic renal insufficiency secondary to type 2 diabetes and is at stage 5 presents for fistula creation. The patient has signed the informed consent after reviewing risks, complications, benefits, and alternatives previously discussed with the patient. The patient was given the opportunity to ask any additional questions or voice any concerns. All questions were answered to the patient's satisfaction. Procedure in detail: Patient was brought to the operating room prior to which a time-out was called for patient identification and site verification. Left upper extremity cephalic vein was mapped out with ultrasound. It is recognized that the cephalic vein towards the wrist appear to be small in caliber and bifurcated. Decision was made to create an upper extremity fistula. The cephalic vein and basilic artery were then mapped out and marked on the skin. Proximally 2 fingerbreadths above the antecubital fossa we made a transverse incision this was infiltrated with local prior to incision. Once once down we were easily able to identify the cephalic vein. This was encircled with assist silastic loop. In a similar fashion we went down to the brachial artery. This did require Doppler to find as the arm was quite large. We were able to identify this and isolate this with silastic loops as well. At this time 3000 units of systemic heparin was administered. After 5 minutes of circulation time the brachial artery was then isolated. Arteriotomy was created with 11 blade and Hatfield scissors. We then lengthened out the cephalic vein. Once this was transected at its most distal point. The remnant stump was suture ligated with a 3-0 silk stitch. We then tested out the residual cephalic vein with heparinized saline. Appear to be normal caliber. We then trimmed this to appropriate length. We then circumferentially anastomosed this with a 6 0 Prolene. Prior to closure flushed clear. Once this was all accomplished adequate hemostasis was achieved. Excellent thrill and bruit were achieved. We then closed up the deep layer with 2-0 Polysorb superficial layer with 3-0 poly Sorb and finally skin with a 4-0 Monocryl in a running subcuticular manner. Sterile dressing were applied. At the end the case sponge instrument counts were correct. Patient tolerated procedure well returned to recovery with stable vitals. This note is constructed using voice recognition software. While every effort has been made to ensure accuracy, animal keeper head errors may have been included. Thank you for allowing me to participate in the care of your patient. Yours sincerely, Ab Riddle MD, FACS, R.P.V.I.
[2023-12-13 13:00] VITALS: BP 176/73; PULSE 90; RESP 16; TEMP 36.7; O2SAT 100
[2023-12-13 13:15] VITALS: BP 179/85; PULSE 88; RESP 20; O2SAT 98
[2023-12-13 13:30] VITALS: BP 176/93; PULSE 93; RESP 20; TEMP 36.1; O2SAT 97
== END 2023-12-13 14:10 | disposition home or self-care (01) ==
PROVIDERS: PCP Family Medicine; Visit Provider Surgery Vascular Surgery
PROC: (CPT 36821; principal; 2023-12-13 10:50)
DX: E11.22 Type 2 diabetes mellitus with diabetic chronic kidney disease (principal); I12.0 Hypertensive chronic kidney disease with stage 5 chronic kidney disease or end stage renal disease; N18.6 End stage renal disease; Z79.4 Long term (current) use of insulin; Z79.85 Long-term (current) use of injectable non-insulin antidiabetic drugs
CPT/HCPCS: 36821; 82947; A4649; J0665; J0690; J1644; J2250; J2704; J2795; J3010

== ENCOUNTER → 2023-12-13 08:58 | Outpatient (BNV) | payer MEDICAID, SELFPAY | PROVIDERS: PCP Family Medicine; Visit Provider Surgery Vascular Surgery | DX: N18.6 End stage renal disease (principal) | CPT/HCPCS: 36818; 76942 ==

== ENCOUNTER 2023-12-16 10:47 | Outpatient (REF) | payer MEDICAID, SELFPAY ==
[2023-12-16 11:02] LABS: MANUAL DIFF FLAG NO
[2023-12-16 11:26] LABS: Basophils Absolute Auto 0.1 X10*3/uL (0.0-0.2); Basophils Percent Auto 0.7 % (0-2); Eosinophils Absolute Auto 0.2 X10*3/uL (0.0-0.4); Eosinophils Percent Auto 2.2 % (0-4); Hematocrit 32.1 % (37.0-47.0); Hemoglobin 10.8 g/dl (12.0-16.0); Imm Gran Abs Auto 0.05 X10*3/uL (0.00-0.03); Imm Gran Pct Auto 0.5 % (0.0-0.4); Lymphocytes Absolute Auto 1.5 X10*3/uL (1.2-4.9); Lymphocytes Percent Auto 16.7 % (20-40); Mean Corpuscular HGB Conc 33.6 g/dl (31.0-35.0); Mean Corpuscular Hemoglobin 29.6 pg (27.0-33.0); Mean Corpuscular Volume 87.9 fL (80.0-98.0); Mean Platelet Volume 10.5 fL (9.4-12.3); Monocytes Absolute Auto 0.7 X10*3/uL (0.1-1.2); Monocytes Percent Auto 7.3 % (2-11); Neutrophils Absolute Auto 6.6 x10*3/uL (2.0-8.3); Neutrophils Percent Auto 72.6 % (45-73); Platelet Count 163 X10*3/uL (160-400); Red Blood Count 3.65 X10*6/uL (4.20-5.50); Red Cell Distribution Width 14.8 % (11.0-16.0); White Blood Count 9.1 X10*3/uL (4.8-10.8)
[2023-12-16 12:02] LABS: Anion Gap 17 (12-20); Blood Urea Nitrogen 67 mg/dL (9-16); Carbon Dioxide 20 mmol/L (22-29); Chloride 105 mmol/L (96-108); Potassium 4.5 mmol/L (3.3-5.1); Sodium 137 mmol/L (135-145)
[2023-12-16 13:19] LABS: Estimated Glomerular Filt Rate 9
== END 2023-12-16 10:48 | disposition home or self-care (01) ==
LOC: HO.LAB 10:47
PROVIDERS: Visit Provider Internal Medicine Nephrology
DX: E11.21 Type 2 diabetes mellitus with diabetic nephropathy (principal); E11.22 Type 2 diabetes mellitus with diabetic chronic kidney disease; I10 Essential (primary) hypertension; N18.5 Chronic kidney disease, stage 5; D63.1 Anemia in chronic kidney disease; N25.81 Secondary hyperparathyroidism of renal origin
CPT/HCPCS: 36415; 80051; 82310; 82565; 84520; 85025

== ENCOUNTER 2023-12-22 11:14 | Outpatient (AMB) | payer MEDICAID, SELFPAY ==
[2023-12-22 11:49] VITALS: BP 134/70; PULSE 94; O2SAT 97; BMI 33.2
--- NOTE | 2023-12-22 11:49 | HO.NEPHOV ---
HPI HPI Comments History of Present Illness Details I would the privilege of seeing Jazmine in follow-up of her chronic kidney disease and hypertension. She has a diagnosis of cardiomyopathy and has been closely followed up by sewing machinist, given her ejection fraction was 20%. At the time she was on lisinopril which was discontinued and was started on Entresto. She also has been on Farxiga. Her blood sugars have been better but recently when her serum creatinine has gone up significantly and she was asked to hold her Entresto all together. Her Farxiga was discontinued recently. She denies any hypoglycemia, orthostatic symptoms, nausea, vomiting, diarrhea or urinary symptoms. She has not taken any nonsteroidal anti-inflammatories. She denies any uremic symptoms. She has seen Dr Riddle and had an AVF on LUE. Her LUE is swollen. Her serum creatinine is better. She has no uremic symptoms. All other systems have been reviewed and were negative [facility] Medical History Cardiomyopathy Chronic kidney disease, stage 4 (severe) Hypertension Type 2 diabetes mellitus with diabetic nephropathy Social History Comment: counts correct Patient Tobacco Use Status: Never used Tobacco Vital Signs 12/22/23 11:49 Height 5 ft 1 in Weight 175 lb 8 oz BMI 33.2 BP 134/70 Blood Pressure Location Rt brachial Position Sitting Pulse 94 Pulse Source Pulse Oximeter Pulse Oximetry (%) 97 Oxygen Delivery Method Room Air Physical Exam Vital Signs: Last Vital Signs Pulse 94 12/22/23 11:49 BP 134/70 12/22/23 11:49 Pulse Ox 97 12/22/23 11:49 Oxygen Delivery Method Room Air 12/22/23 11:49 BMI result Body Mass Index 33.2 Const General: comfortable and no acute distress Orientation/consciousness: patient oriented x3 HEENT Head: Yes normocephalic Mouth: Normal oral and palatal mucosa present Eyes EOM: EOMs intact bilaterally Neck Neck: Yes supple Resp Auscultation: clear to auscultation bilaterally Cardio Jugular venous distension: no JVD Rate: regular rate GI Palpation (GI): Soft to palpation Auscultation: normal bowel sounds General: Yes no CVA tenderness Back/Spine/Pelvis Back: no CVA tenderness Skin General skin exam: no rashes or lesions noted Neuro General: patient oriented x3 and moves all extremities Extrem Other: LUE swollen( had a new AVF) Office Meds epoetin clementina-epbx 10,000 unit/mL injection solution Performing Provider: Rogerio Martinez MD [facility] Administered by: Rogerio Martinez MD on 12/22/23 12:01 Dose Route Admin Location Dispensed Lot Number Expiration Date [facility] Records Administrator 10,000 unit subcut 1 mL [id number] 02/25/26 5948-6440-56 [employer] PHARM Assessment & Plan Assessment & Plan (1) Anemia in chronic kidney disease: Code(s): N18.9 - Chronic kidney disease, unspecified; D63.1 - Anemia in chronic kidney disease Qualifiers: Chronic kidney disease stage: stage 4 (severe) Qualified Code(s): N18.4 - Chronic kidney disease, stage 4 (severe); D63.1 - Anemia in chronic kidney disease (2) CKD stage 5 due to type 2 diabetes mellitus: Code(s): E11.22 - Type 2 diabetes mellitus with diabetic chronic kidney disease; N18.5 - Chronic kidney disease, stage 5 (3) Diabetic nephropathy: Code(s): E11.21 - Type 2 diabetes mellitus with diabetic nephropathy Qualifiers: Diabetes mellitus type: type 2 Qualified Code(s): E11.21 - Type 2 diabetes mellitus with diabetic nephropathy (4) Secondary hyperparathyroidism (of renal origin): Code(s): N25.81 - Secondary hyperparathyroidism of renal origin (5) Hypertension: Code(s): I10 - Essential (primary) hypertension Qualifiers: Hypertension type: primary hypertension Qualified Code(s): I10 - Essential (primary) hypertension Plan She has been having progression of her renal disease. She was on Entresto which has been on put on hold since her recent LORIN. Her serum creatinine is marginally better. She has a new LUE AVF. Her Farxiga was held given her current GFR. She had a renal biopsy in the past which showed diabetic nephropathy. She also has retinopathy and neuropathy. She does not take any nonsteroidal anti-inflammatory medications. Her blood pressure is at goal. I also referred her to [facility] [place] for transplant evaluation. She does not take her sodium in the diet. I gave her [id number] U of procrit in the office on her L UE. I did not make any other medication changes today. All questions answered. Orders: Orders AMB Epoetin Injection Practice Supplied Today D63.1 - Anemia in chronic kidney disease, N18.9 - Chronic kidney disease, unspecified Calcium Today D63.1 - Anemia in chronic kidney disease, E11.21 - Type 2 diabetes mellitus with diabetic nephropathy, E11.22 - Type 2 diabetes mellitus with diabetic chronic kidney disease, I10 - Essential (primary) hypertension, N18.5 - Chronic kidney disease, stage 5, N18.9 - Chronic kidney disease, unspecified, N25.81 - Secondary hyperparathyroidism of renal origin Phosphorus Today D63.1 - Anemia in chronic kidney disease, E11.21 - Type 2 diabetes mellitus with diabetic nephropathy, E11.22 - Type 2 diabetes mellitus with diabetic chronic kidney disease, I10 - Essential (primary) hypertension, N18.5 - Chronic kidney disease, stage 5, N18.9 - Chronic kidney disease, unspecified, N25.81 - Secondary hyperparathyroidism of renal origin Parathyroid Hormone Intact Today D63.1 - Anemia in chronic kidney disease, E11.21 - Type 2 diabetes mellitus with diabetic nephropathy, E11.22 - Type 2 diabetes mellitus with diabetic chronic kidney disease, I10 - Essential (primary) hypertension, N18.5 - Chronic kidney disease, stage 5, N18.9 - Chronic kidney disease, unspecified, N25.81 - Secondary hyperparathyroidism of renal origin Electrolytes Today D63.1 - Anemia in chronic kidney disease, E11.21 - Type 2 diabetes mellitus with diabetic nephropathy, E11.22 - Type 2 diabetes mellitus with diabetic chronic kidney disease, I10 - Essential (primary) hypertension, N18.5 - Chronic kidney disease, stage 5, N18.9 - Chronic kidney disease, unspecified, N25.81 - Secondary hyperparathyroidism of renal origin Complete Blood Count Auto Diff Today D63.1 - Anemia in chronic kidney disease, E11.21 - Type 2 diabetes mellitus with diabetic nephropathy, E11.22 - Type 2 diabetes mellitus with diabetic chronic kidney disease, I10 - Essential (primary) hypertension, N18.5 - Chronic kidney disease, stage 5, N18.9 - Chronic kidney disease, unspecified, N25.81 - Secondary hyperparathyroidism of renal origin Creatinine Today D63.1 - Anemia in chronic kidney disease, E11.21 - Type 2 diabetes mellitus with diabetic nephropathy, E11.22 - Type 2 diabetes mellitus with diabetic chronic kidney disease, I10 - Essential (primary) hypertension, N18.5 - Chronic kidney disease, stage 5, N18.9 - Chronic kidney disease, unspecified, N25.81 - Secondary hyperparathyroidism of renal origin Blood Urea Nitrogen Today D63.1 - Anemia in chronic kidney disease, E11.21 - Type 2 diabetes mellitus with diabetic nephropathy, E11.22 - Type 2 diabetes mellitus with diabetic chronic kidney disease, I10 - Essential (primary) hypertension, N18.5 - Chronic kidney disease, stage 5, N18.9 - Chronic kidney disease, unspecified, N25.81 - Secondary hyperparathyroidism of renal origin IRON PROFILE Today D63.1 - Anemia in chronic kidney disease, E11.21 - Type 2 diabetes mellitus with diabetic nephropathy, E11.22 - Type 2 diabetes mellitus with diabetic chronic kidney disease, I10 - Essential (primary) hypertension, N18.5 - Chronic kidney disease, stage 5, N18.9 - Chronic kidney disease, unspecified, N25.81 - Secondary hyperparathyroidism of renal origin Coding Level of Care Code Est Pt Level 4 (43440) Diagnoses Anemia in stage 4 chronic kidney disease N18.4; D63.1 Chronic kidney disease stage: stage 4 (severe) CKD stage 5 due to type 2 diabetes mellitus E11.22; N18.5 Diabetic nephropathy associated with type 2 diabetes mellitus E11. Diabetes mellitus type: type 2 Secondary hyperparathyroidism (of renal origin) N25.81 Primary hypertension I10 Hypertension type: primary hypertension Results Reviewed Nephrology Results: Hgb 10.8 g/dl (12.0-16.0) L 12/16/23 WBC 9.1 X10*3/uL (4.8-10.8) 12/16/23 Plt Count 163 X10*3/uL (160-400) 12/16/23 Sodium 137 mmol/L (135-145) 12/16/23 Potassium 4.5 mmol/L (3.3-5.1) 12/16/23 Chloride 105 mmol/L (96-108) 12/16/23 Carbon Dioxide 20 mmol/L (22-29) L 12/16/23 BUN 67 mg/dL (9-16) H 12/16/23 Creatinine 5.16 mg/dL (0.5-1.4) H* 12/16/23 Calcium 9.0 mg/dL (8.4-10.2) 12/16/23
== END 2023-12-22 12:09 | disposition home or self-care (01) ==
PROVIDERS: PCP Family Medicine; Visit Provider Internal Medicine Nephrology
DX: I12.0 Hypertensive chronic kidney disease with stage 5 chronic kidney disease or end stage renal disease (principal); E11.22 Type 2 diabetes mellitus with diabetic chronic kidney disease; N18.5 Chronic kidney disease, stage 5; D63.1 Anemia in chronic kidney disease; E11.21 Type 2 diabetes mellitus with diabetic nephropathy; N25.81 Secondary hyperparathyroidism of renal origin
CPT/HCPCS: 99214

== ENCOUNTER → 2023-12-22 11:14 | Outpatient (BNVA) | payer MEDICAID, SELFPAY | PROVIDERS: PCP Family Medicine; Visit Provider Internal Medicine Nephrology | DX: I12.9 Hypertensive chronic kidney disease with stage 1 through stage 4 chronic kidney disease, or unspecified chronic kidney disease (principal); E11.22 Type 2 diabetes mellitus with diabetic chronic kidney disease; E11.21 Type 2 diabetes mellitus with diabetic nephropathy; N18.5 Chronic kidney disease, stage 5; D63.1 Anemia in chronic kidney disease; N25.81 Secondary hyperparathyroidism of renal origin | CPT/HCPCS: 96372; 99212; Q5106 ==

== ENCOUNTER 2023-12-28 15:37 | Outpatient (AMB) | payer MEDICAID, SELFPAY ==
--- NOTE | 2023-12-28 15:42 | A.OFFVIS_ITS ---
Intake Intake Visit Reasons: 2 week post op fistula 11/14/2023 Intake Note: Patient presents for follow up fistula creation. Patient's left arm is visibly swollen and enlarged. States it is painful and that she is unable to do anything around her house. States it is numb as well. Accompanied by: Son Allergies No Known Allergies [No Known Allergies*] Allergy (Verified 12/22/23 11:52) HPI 2 week post op fistula 11/14/2023 HPI Details Very pleasant 58-year-old female presents for follow-up secondary to fistula creation. On 12/12 she underwent left upper extremity brachiocephalic fistula creation. She reported that she was doing well for about a day and then she experienced significant swelling of that left upper extremity. She says that it has not painful but significantly swollen and she is unable to function well with it. She is able to move her fingers and use it for eating but has not been able to do much more than that. [facility] Medical History Cardiomyopathy Chronic kidney disease, stage 4 (severe) Hypertension Type 2 diabetes mellitus with diabetic nephropathy Social History Comment: counts correct Patient Tobacco Use Status: Never used Tobacco Review of Systems Const All systems reviewed & are unremarkable except as noted in HPI and below Reports no additional complaints ENT Reports Normal hearing present Card Denies chest pain, Denies chest pain at rest, Denies chest pain with activity and Denies pedal edema Resp Denies cough GI Denies abdominal pain Musc Denies abnormal gait, Denies muscle cramps and Denies radiating pain into limb Skin/Breast Denies skin ulcer and Denies wounds Neuro Reports Normal hearing present and Denies abnormal gait Psych Reports no additional complaints Physical Exam Const General: cooperative, healthy appearing and comfortable Orientation/consciousness: oriented to person, oriented to place and oriented to time HEENT Head: Yes normal to inspection Neck Neck: Yes normal visual inspection Carotids: no bruits Chest Chest palpation & inspection: normal inspection of the chest Resp Effort & Inspection: normal respiratory effort and able to speak in complete sentences Auscultation: clear to auscultation bilaterally, no crackles, no rales, no rhonchi and no wheezes Cardio Other: Left upper extremity +2-3 3 edema. Local office ultrasound demonstrated appropriate maturation of cephalic vein for being 2 weeks out Fistula did have a thrill over it although deep Rate: regular rate Rhythm: regular rhythm Heart sounds: S1 normal heart sound present and S2 normal heart sound present Bruits: no carotid bruits Peripheral pulses: Peripheral pulses 2+ throughout GI Inspection: Yes normal to inspection Skin Wounds: no wounds Hair: normal Neuro General: oriented to person, oriented to place and oriented to time Cranial nerves: Yes CN's II-XII intact bilaterally and Yes Normal hearing present Cognition (Neuro): normal cognition Motor exam (neuro): 5/5 motor strength present throughout Extrem Other: venous exam: No significant superficial varicosities or spider telangiectasias, minimal edema General: No clubbing, No cyanosis and No edema Psych Appearance: grossly normal Mental Status: mental status grossly normal Speech and movement: Normal speech and movement present Assessment & Plan Assessment & Plan (1) CKD stage 5 due to type 2 diabetes mellitus: Code(s): E11.22 - Type 2 diabetes mellitus with diabetic chronic kidney disease; N18.5 - Chronic kidney disease, stage 5 Plan: In short patient is status post fistula placement. Her arm is significantly swollen postprocedure he. The concern here is central outflow venous obstruction. She does have a pacemaker on that side that may be causing a more central stenosis. I have discussed with her conservative measures including arm elevation and localized Chandana wrap to see if that caught says any improvement. If no improvement within the next 2-3 weeks will plan for fistulogram. Unfortunately if there is a true central venous stenosis we may have due abandoned this fistula. We will closely monitor her status with you. She does have a follow-up with Dr. Martinez scheduled within the next 3-4 weeks. Coding Level of Care Code Est Pt Level 3 (95552) Diagnoses CKD stage 5 due to type 2 diabetes mellitus E11.22; N18.5
== END 2023-12-29 11:05 | disposition home or self-care (01) ==
PROVIDERS: PCP Family Medicine; Visit Provider Surgery Vascular Surgery
DX: E11.22 Type 2 diabetes mellitus with diabetic chronic kidney disease (principal); N18.5 Chronic kidney disease, stage 5
CPT/HCPCS: 99024

== ENCOUNTER → 2023-12-28 15:37 | Outpatient (BNVA) | payer MEDICAID, SELFPAY | PROVIDERS: PCP Family Medicine; Visit Provider Surgery Vascular Surgery | DX: E11.22 Type 2 diabetes mellitus with diabetic chronic kidney disease (principal); N18.5 Chronic kidney disease, stage 5 | CPT/HCPCS: 99212 ==

== ENCOUNTER 2024-01-18 14:57 | Outpatient (AMB) | payer MEDICAID, SELFPAY ==
[2024-01-18 15:06] VITALS: BMI 33.1
--- NOTE | 2024-01-18 15:06 | A.OFFVIS_ITS ---
Vital Signs 01/18/24 15:06 Height 5 ft 1 in Weight 175 lb BMI 33.1 Intake Visit Reasons: 3 week follow up arm check Intake Note: 3 week follow up Left UE fistula placement 11/14/23 w/ left UE swelling. Pt statyes she has been wrapping it with an clara bandage and elevating, no changes, still swollen. Accompanied by: Self / Same As Patient Allergies No Known Allergies [No Known Allergies*] Allergy (Verified 01/18/24 15:09) HPI HPI 3 week follow up arm check: Details: Very pleasant 58-year-old female presents for follow-up status post left upper extremity brachiocephalic fistula creation on 12/13/2023. Since then she has had a significantly swollen left upper extremity. It has become quite painful for her. She is conservatively manage this over the past 2-3 weeks and it has not improved with wraps and elevation. She now presents for follow-up. Of note she has a prior history of pacer defibrillator. [facility] Medical History Cardiomyopathy Chronic kidney disease, stage 4 (severe) Hypertension Type 2 diabetes mellitus with diabetic nephropathy Social History Comment: counts correct Patient Tobacco Use Status: Never used Tobacco Review of Systems Const All systems reviewed & are unremarkable except as noted in HPI and below Reports no additional complaints ENT Reports Normal hearing present Card Denies chest pain, Denies chest pain at rest, Denies chest pain with activity and Denies pedal edema Resp Denies cough GI Denies abdominal pain Musc Denies abnormal gait, Denies muscle cramps and Denies radiating pain into limb Skin/Breast Denies skin ulcer and Denies wounds Neuro Reports Normal hearing present and Denies abnormal gait Psych Reports no additional complaints Physical Exam Vital Signs: BMI result Body Mass Index 33.1 Const General: cooperative, healthy appearing and comfortable Orientation/consciousness: oriented to person, oriented to place and oriented to time HEENT Head: Yes normal to inspection Neck Neck: Yes normal visual inspection Carotids: no bruits Chest Chest palpation & inspection: normal inspection of the chest Resp Effort & Inspection: normal respiratory effort and able to speak in complete sentences Auscultation: clear to auscultation bilaterally, no crackles, no rales, no rhonchi and no wheezes Cardio Rate: regular rate Rhythm: regular rhythm Heart sounds: S1 normal heart sound present and S2 normal heart sound present Bruits: no carotid bruits Peripheral pulses: Peripheral pulses 2+ throughout GI Inspection: Yes normal to inspection Skin Wounds: no wounds Hair: normal Neuro General: oriented to person, oriented to place and oriented to time Cranial nerves: Yes CN's II-XII intact bilaterally and Yes Normal hearing present Cognition (Neuro): normal cognition Motor exam (neuro): 5/5 motor strength present throughout Extrem Other: Left upper extremity +2 edema General: No clubbing, No cyanosis and No edema Psych Appearance: grossly normal Mental Status: mental status grossly normal Speech and movement: Normal speech and movement present Assessment & Plan Assessment & Plan (1) CKD stage 5 due to type 2 diabetes mellitus: Code(s): E11.22 - Type 2 diabetes mellitus with diabetic chronic kidney disease; N18.5 - Chronic kidney disease, stage 5 Category: Medical Plan: In short she has a poorly functioning left upper extremity fistula she will require left upper extremity fistulogram with possible plasty and/or stent. I do suspect that this may be outflow obstruction secondary to pacer/defibrillator. We will schedule her as soon as possible. Thank you for allowing us to assist in her care. Coding Level of Care Code Est Pt Level 4 (24054) Diagnoses CKD stage 5 due to type 2 diabetes mellitus E11.22; N18.5
== END 2024-01-18 15:29 | disposition home or self-care (01) ==
PROVIDERS: PCP Family Medicine; Visit Provider Surgery Vascular Surgery
DX: E11.22 Type 2 diabetes mellitus with diabetic chronic kidney disease (principal); N18.5 Chronic kidney disease, stage 5
CPT/HCPCS: 99024

== ENCOUNTER → 2024-01-18 14:57 | Outpatient (BNVA) | payer MEDICAID, SELFPAY | PROVIDERS: PCP Family Medicine; Visit Provider Surgery Vascular Surgery | DX: E11.22 Type 2 diabetes mellitus with diabetic chronic kidney disease (principal); I12.9 Hypertensive chronic kidney disease with stage 1 through stage 4 chronic kidney disease, or unspecified chronic kidney disease; N18.5 Chronic kidney disease, stage 5 | CPT/HCPCS: 99212 ==

== ENCOUNTER 2024-01-20 10:03 | Outpatient (AMB) | payer MEDICAID, SELFPAY ==
[2024-01-20 10:14] VITALS: BP 147/80; PULSE 88; BMI 33.7
--- NOTE | 2024-01-20 10:14 | MHC.OFFVIS ---
Vital Signs 01/20/24 10:14 Height 5 ft 1 in Weight 178 lb 8 oz BMI 33.7 BP 147/80 H Blood Pressure Location Rt brachial Position Sitting Pulse 88 Intake Visit Reasons: Recall colonoscopy screening Intake Note: This patient presents for a recall colonoscopy screening. Pt c/o; reports no complaints. Last colonoscopy: 2018 Dr. Michel Exercise Equipment Repair Technician Required: Yes Exercise Equipment Repair Technician Language: [place] Conservation Laborer Name: Quinn Information Interpreted: non-clinical & clinical Accompanied by: Self / Same As Patient Allergies No Known Allergies [No Known Allergies*] Allergy (Verified 01/20/24 10:25) Medication List - Last Reconciled 01/20/24 by Erwin Montano MD amitriptyline 50 mg PO BEDTIME aspirin 81 mg PO QAM calcitriol 0.25 mcg PO 3XW 30 days cholecalciferol (vitamin D3) (Vitamin D3) 50 mcg PO QAM dulaglutide (Trulicity) mg subcut QWEEK ferrous sulfate (FeroSul) 325 mg PO QPM insulin glargine (Lantus Solostar U-100 Insulin) 30 units subcut BEDTIME insulin lispro 8 - 18 units subcut TID lancets (TRUEplus Lancets) As directed metoprolol tartrate 25 mg PO omeprazole 20 mg PO oxycodone-acetaminophen 5-325 mg (Percocet) 1 tab PO Q8H PRN pen needle, diabetic (Pentips) As directed rosuvastatin 40 mg PO BEDTIME HPI HPI Recall colonoscopy screening: Details: [age] year old female here for a follow-up colonoscopy. She had a colonoscopy in [address] Michel because of a history of a 1 cm tubular adenoma in 2018. That time, there were no polyps seen. However because of her history of this large adenoma, she was recommended to undergo another colonoscopy in 5 years. She currently denies significant complaints. She feels well overall. She had been diagnosed to have chronic kidney disease and has had a AV fistula placed on the left arm last November 2023. She has not started on dialysis yet. She says she also had a pacemaker placed last year. [facility] Medical History (Updated 01/20/24 @ 10:33 by Erwin Montano MD) History of adenomatous polyp of colon Cardiomyopathy Chronic kidney disease, stage 4 (severe) Hypertension Type 2 diabetes mellitus with diabetic nephropathy Social History Comment: counts correct Patient Tobacco Use Status: Never used Tobacco Review of Systems Const Denies chills and Denies fever(s) Card Denies chest pain, Denies dyspnea and Denies dyspnea on exertion Resp Denies cough, Denies dyspnea and Denies dyspnea on exertion GI Denies hematochezia and Denies change in bowel habits Denies hematuria Musc Denies back pain and Denies limited range of motion Neuro Denies focal weakness and Denies convulsions Psych Denies depression and Denies mood swings Physical Exam Vital Signs: Last Vital Signs Pulse 88 01/20/24 10:14 BP 147/80 H 01/20/24 10:14 BMI result Body Mass Index 33.7 Const General: comfortable and no acute distress Orientation/consciousness: patient oriented x3 Neck Neck: Yes no lymphadenopathy Resp Auscultation: clear to auscultation bilaterally Cardio Rhythm: regular rhythm GI Palpation (GI): Soft to palpation, nontender and no guarding Neuro General: patient oriented x3 Assessment & Plan Assessment & Plan (1) History of adenomatous polyp of colon: Code(s): Z86.010 - Personal history of colonic polyps Category: Medical Plan: She has a history of a large tubular adenoma and was recommended to undergo another colonoscopy in 5 years. I reviewed with her the technique of colonoscopy. I explained the risks including but not limited to bleeding and perforation, as well as the benefits and alternatives. She understands and wants to proceed. She has chronic kidney disease now and just did an AV fistula placed. She will have her seen by her primary care for this prior to her colonoscopy. Coding Level of Care Code New Pt Level 3 (64622) Diagnoses History of adenomatous polyp of colon Z86.010
== END 2024-01-20 10:41 | disposition home or self-care (01) ==
PROVIDERS: PCP Family Medicine; Visit Provider Surgery
DX: Z86.010 Personal history of colon polyps (principal)
CPT/HCPCS: 99203

== ENCOUNTER → 2024-01-20 10:03 | Outpatient (BNVA) | payer MEDICAID, SELFPAY | PROVIDERS: PCP Family Medicine; Visit Provider Surgery | DX: Z01.818 Encounter for other preprocedural examination (principal); Z86.010 Personal history of colon polyps | CPT/HCPCS: 99202 ==

== ENCOUNTER 2024-01-26 06:00 | Day surgery (SDC) | payer MEDICAID, SELFPAY ==
[2024-01-26] VITALS (10 sets, daily range): BP systolic 156–190; BP diastolic 60–93; PULSE 100–109; RESP 16–18; TEMP 36.4–37; O2SAT 98–100; BMI 34.4
[2024-01-26 06:56] LABS: MANUAL DIFF FLAG NO
[2024-01-26 07:00] LABS: Basophils Absolute Auto 0.1 X10*3/uL (0.0-0.2); Basophils Percent Auto 0.7 % (0-2); Eosinophils Absolute Auto 0.3 X10*3/uL (0.0-0.4); Eosinophils Percent Auto 4.1 % (0-4); Hematocrit 28.2 % (37.0-47.0); Hemoglobin 9.4 g/dl (12.0-16.0); Imm Gran Abs Auto 0.03 X10*3/uL (0.00-0.03); Imm Gran Pct Auto 0.4 % (0.0-0.4); Lymphocytes Absolute Auto 1.4 X10*3/uL (1.2-4.9); Lymphocytes Percent Auto 19.3 % (20-40); Mean Corpuscular HGB Conc 33.3 g/dl (31.0-35.0); Mean Corpuscular Hemoglobin 29.7 pg (27.0-33.0); Mean Corpuscular Volume 89.2 fL (80.0-98.0); Mean Platelet Volume 10.7 fL (9.4-12.3); Monocytes Absolute Auto 0.7 X10*3/uL (0.1-1.2); Monocytes Percent Auto 10.2 % (2-11); Neutrophils Absolute Auto 4.8 x10*3/uL (2.0-8.3); Neutrophils Percent Auto 65.3 % (45-73); Platelet Count 137 X10*3/uL (160-400); Red Blood Count 3.16 X10*6/uL (4.20-5.50); Red Cell Distribution Width 13.9 % (11.0-16.0); White Blood Count 7.3 X10*3/uL (4.8-10.8)
[2024-01-26 07:22] LABS: Blood Urea Nitrogen 65 mg/dL (9-16); Estimated Glomerular Filt Rate 6
[2024-01-26 07:25] LABS: Glucose, Whole Blood 187 mg/dL (60-115)
[2024-01-26] MEDS: 0.9 % Sodium Chloride 1,000 ML 100 ML IVCONT (07:36)
--- NOTE | 2024-01-26 09:49 | P.OP_ITS ---
Operative Note Operative Note Date of Service: 01/26/24 Narrative: Angiogram report from [facility] Preoperative diagnosis: Chronic renal insufficiency 2. Swollen left upper extremity Postoperative diagnosis: Same Procedure: 1. Ultrasound-guided left arm fistula access 2. Fistulogram 3. Left upper extremity venous outflow tract plasty Surgeon:Ab Riddle M.D., FACS, RPVI Senior Hardware Engineer:None Anesthesia: Local with moderate conscious sedation. Total intraservice m oderate sedation time was 66 minutes. I monitored the patient's level of consciousness and physiologic status continuously throughout the procedure. Specimens:none Drains:none Estimated blood loss: Less than 10 ml Implant: Medtronic Impact DCB 6 x 80 Indications: Very pleasant 58-year-old female presents for follow-up regarding her left upper extremity fistula. She had a left upper extremity brachiocephalic fistula with significant swelling of the left arm. She now presents for fistulogram. The patient has signed the informed consent after reviewing risks, complications, benefits, and alternatives previously discussed with the patient. The patient was given the opportunity to ask any additional questions or voice any concerns. All questions were answered to the patient's satisfaction. Procedure in detail: Patient was brought to the angiography suite prior to which a time-out was called for patient identification and site verification. Left upper extremity was prepped and draped in standard surgical fashion. Under ultrasound guidance the fistula was accessed at cephalic vein near the anastomosis. We placed a micropuncture sheath. Through the sheath we did a fistulogram. It was noted that there was a central outflow obstruction with high-grade stenosis there. This was at the site of the previous pacer defibrillator placement. At this time 5000 units of systemic heparin was administered. Six Faroese sheath was then placed. And through this we advanced a Glidewire advantage and we were able to traverse this with a Navicross. Once in position we we confirmed true lumen by instilling the catheter with contrast. We initially plasty this area with a 6 x 30 balloon with multiple insufflations. Once across this area we then insufflated this area with a 6 x 80 drug coated balloon. With this was brought into position in under 3 minutes and then insufflated for a total of 3 minutes in duration. Once this was completed we still had some residual stenosis. We then post dilated this with a 7 x 80 balloon. This once again was brought in and insufflated for about an minutes in duration. Once this was all accomplished completion angiogram demonstrated good result catheter wire sheath was removed. Once this sheath was removed we placed a 3-0 nylon suture in a circumferential manner to obtain closure. Adequate hemostasis was achieved. Sterile dressing was applied. Patient tolerated the procedure well. Interpretation of films: 1. Ultrasound demonstrates appropriate puncture of fistula 2. Initial fistulogram demonstrated high-grade stenosis at the junction where the wires from the pacer defibrillator entered the venous system. 3. Postprocedure demonstrated good outflow with improvement of the central venous stenosis Conclusion: 1. Successful fistula plasty 2. Anticoagulation status: No change This note is constructed using voice recognition software. While every effort has been made to ensure accuracy, advertising copywriter errors may have been included. Thank you for allowing me to participate in the care of your patient. Yours sincerely, Ab Riddle MD, FACS, R.P.V.I.
== END 2024-01-26 12:03 | disposition home or self-care (01) ==
PROVIDERS: PCP Family Medicine; Visit Provider Surgery Vascular Surgery
DX: E11.22 Type 2 diabetes mellitus with diabetic chronic kidney disease (principal); I12.0 Hypertensive chronic kidney disease with stage 5 chronic kidney disease or end stage renal disease; N18.5 Chronic kidney disease, stage 5; I87.1 Compression of vein; M79.89 Other specified soft tissue disorders; I42.9 Cardiomyopathy, unspecified; Z95.810 Presence of automatic (implantable) cardiac defibrillator
CPT/HCPCS: 36415; 36902; 76937; 82565; 82947; 84520; 85025; 99152; 99153; C1725; C1769; C1887; C1894; C2623; J0360; J1644; J2250; J2310; J3010; Q9967

== ENCOUNTER → 2024-01-26 06:00 | Outpatient (BNV) | payer MEDICAID, SELFPAY | PROVIDERS: PCP Family Medicine; Visit Provider Surgery Vascular Surgery | DX: N18.6 End stage renal disease (principal) | CPT/HCPCS: 36836; 99152 ==

== ENCOUNTER 2024-01-28 11:07 | Outpatient (REF) | payer MEDICAID, SELFPAY ==
[2024-01-28 11:17] LABS: MANUAL DIFF FLAG NO
[2024-01-28 11:50] LABS: Basophils Absolute Auto 0.1 X10*3/uL (0.0-0.2); Basophils Percent Auto 0.6 % (0-2); Eosinophils Absolute Auto 0.4 X10*3/uL (0.0-0.4); Eosinophils Percent Auto 3.8 % (0-4); Hematocrit 27.5 % (37.0-47.0); Imm Gran Abs Auto 0.03 X10*3/uL (0.00-0.03); Imm Gran Pct Auto 0.3 % (0.0-0.4); Lymphocytes Absolute Auto 1.7 X10*3/uL (1.2-4.9); Lymphocytes Percent Auto 17.9 % (20-40); Mean Corpuscular HGB Conc 32.7 g/dl (31.0-35.0); Mean Corpuscular Hemoglobin 29.6 pg (27.0-33.0); Mean Corpuscular Volume 90.5 fL (80.0-98.0); Mean Platelet Volume 10.7 fL (9.4-12.3); Monocytes Absolute Auto 0.9 X10*3/uL (0.1-1.2); Neutrophils Absolute Auto 6.5 x10*3/uL (2.0-8.3); Neutrophils Percent Auto 68.4 % (45-73); Platelet Count 155 X10*3/uL (160-400); Red Blood Count 3.04 X10*6/uL (4.20-5.50); Red Cell Distribution Width 14.3 % (11.0-16.0); White Blood Count 9.5 X10*3/uL (4.8-10.8)
[2024-01-28 12:34] LABS: Parathyroid Hormone Intact 1474.1 pg/mL (8.7-77.1)
[2024-01-28 13:07] LABS: Anion Gap 12 (12-20); Blood Urea Nitrogen 62 mg/dL (9-16); Carbon Dioxide 21 mmol/L (22-29); Chloride 104 mmol/L (96-108); Iron 37 mcg/dL (30-160); Percent Iron Saturation 20 % (15-50); Phosphorus 4.3 mg/dL (2.7-4.5); Potassium 5.1 mmol/L (3.3-5.1); Sodium 132 mmol/L (135-145); Total Iron Binding Capacity 182 mcg/dL (228-428); Unsaturated Iron Binding 145 ug/dL
[2024-01-28 13:14] LABS: Estimated Glomerular Filt Rate 7
== END 2024-01-28 11:08 | disposition home or self-care (01) ==
LOC: HO.LAB 11:07
PROVIDERS: PCP Family Medicine; Visit Provider Internal Medicine Nephrology
DX: E11.22 Type 2 diabetes mellitus with diabetic chronic kidney disease (principal); N18.5 Chronic kidney disease, stage 5; D63.1 Anemia in chronic kidney disease; E11.21 Type 2 diabetes mellitus with diabetic nephropathy; N25.81 Secondary hyperparathyroidism of renal origin; I10 Essential (primary) hypertension
CPT/HCPCS: 36415; 80051; 82310; 82565; 83540; 83970; 84100; 84520; 85025

== ENCOUNTER 2024-02-02 11:02 | Outpatient (AMB) | payer MEDICAID, SELFPAY ==
[2024-02-02 11:04] VITALS: BP 148/72; PULSE 83; O2SAT 99
--- NOTE | 2024-02-02 11:04 | HO.NEPHOV ---
Vital Signs 02/02/24 11:04 Weight 177 lb BP 148/72 H Blood Pressure Location Rt brachial Position Sitting Pulse 83 Pulse Source Pulse Oximeter Pulse Oximetry (%) 99 Oxygen Delivery Method Room Air Intake Visit Reasons: 1 Month/ # Telemarketing Document Scanner Required: No Accompanied by: Self / Same As Patient Allergies No Known Allergies [No Known Allergies*] Allergy (Verified 02/02/24 11:06) HPI Comments Details: I had the privilege of seeing Jazmine in follow-up of her chronic kidney disease and hypertension. She has a diagnosis of cardiomyopathy and has been closely followed up by windshield technician, given her ejection fraction was 20%. At that time she was on lisinopril which was discontinued and was started on Entresto. She also has been on Farxiga. Her blood sugars have been better but recently when her serum creatinine has gone up significantly and she was asked to hold her Entresto all together. Her Farxiga was discontinued recently. She denies any hypoglycemia, orthostatic symptoms, nausea, vomiting, diarrhea or urinary symptoms. She has not taken any nonsteroidal anti-inflammatories. She denies any uremic symptoms. She has seen Dr Riddle and had an AVF on LUE. Her LUE was swollen and underwent fistulogram. She has a AICD on the left side as the AVF. Her serum creatinine is stable. She has no uremic symptoms. She has a follow up with Dr Riddle. All other systems have been reviewed and were negative [facility] Medical History (Updated 01/26/24 @ 07:11 by Lorene Urban RN) Pacemaker History of adenomatous polyp of colon Cardiomyopathy Chronic kidney disease, stage 4 (severe) Hypertension Type 2 diabetes mellitus with diabetic nephropathy Social History Comment: counts correct Patient Tobacco Use Status: Never used Tobacco Physical Exam Vital Signs: Last Vital Signs Pulse 83 02/02/24 11:04 BP 148/72 H 02/02/24 11:04 Pulse Ox 99 02/02/24 11:04 Oxygen Delivery Method Room Air 02/02/24 11:04 Const General: comfortable and no acute distress Orientation/consciousness: patient oriented x3 HEENT Head: Yes normocephalic Mouth: Normal oral and palatal mucosa present Eyes EOM: EOMs intact bilaterally Neck Neck: Yes supple Resp Auscultation: clear to auscultation bilaterally Cardio Jugular venous distension: no JVD Rate: regular rate GI Palpation (GI): Soft to palpation Auscultation: normal bowel sounds General: Yes no CVA tenderness Back/Spine/Pelvis Back: no CVA tenderness Skin General skin exam: no rashes or lesions noted Neuro General: patient oriented x3 and moves all extremities Extrem Other: AVF Office Meds epoetin clementina-epbx 20,000 unit/mL injection solution Performing Provider: Rogerio Martinez MD Per[facility] Administered by: Rogerio Martinez MD on 02/02/24 11:18 Dose Route Admin Location Dispensed Lot Number Expiration Date [facility] [employer] 20,000 unit subcut 1 mL [id number] 08/27/25 6211-9676-07 [employer] Results Reviewed Nephrology Results: Hgb 9.0 g/dl (12.0-16.0) L 01/28/24 WBC 9.5 X10*3/uL (4.8-10.8) 01/28/24 Plt Count 155 X10*3/uL (160-400) L 01/28/24 Sodium 132 mmol/L (135-145) L 01/28/24 Potassium 5.1 mmol/L (3.3-5.1) 01/28/24 Chloride 104 mmol/L (96-108) 01/28/24 Carbon Dioxide 21 mmol/L (22-29) L 01/28/24 BUN 62 mg/dL (9-16) H 01/28/24 Creatinine 6.37 mg/dL (0.5-1.4) H* 01/28/24 Calcium 9.0 mg/dL (8.4-10.2) 01/28/24 Phosphorus 4.3 mg/dL (2.7-4.5) 01/28/24 PTH Intact 1474.1 pg/mL (8.7-77.1) H 01/28/24 Assessment & Plan Assessment & Plan (1) CKD stage 5 due to type 2 diabetes mellitus: Code(s): E11.22 - Type 2 diabetes mellitus with diabetic chronic kidney disease; N18.5 - Chronic kidney disease, stage 5 Category: Medical (2) Anemia in chronic kidney disease: Code(s): N18.9 - Chronic kidney disease, unspecified; D63.1 - Anemia in chronic kidney disease Category: Medical Qualifiers: Chronic kidney disease stage: stage 4 (severe) Qualified Code(s): N18.4 - Chronic kidney disease, stage 4 (severe); D63.1 - Anemia in chronic kidney disease (3) Diabetic nephropathy: Code(s): E11.21 - Type 2 diabetes mellitus with diabetic nephropathy Category: Medical Qualifiers: Diabetes mellitus type: type 2 Qualified Code(s): E11.21 - Type 2 diabetes mellitus with diabetic nephropathy (4) Secondary hyperparathyroidism (of renal origin): Code(s): N25.81 - Secondary hyperparathyroidism of renal origin Category: Medical (5) Hypertension: Code(s): I10 - Essential (primary) hypertension Category: Medical Qualifiers: Hypertension type: primary hypertension Qualified Code(s): I10 - Essential (primary) hypertension Plan She has been having progression of her renal disease. She was on Entresto which has been on put on hold since her recent LORIN. Her serum creatinine is stable. She has a new LUE AVF. She had a renal biopsy in the past which showed diabetic nephropathy. She also has retinopathy and neuropathy. She does not take any nonsteroidal anti-inflammatory medications. Her blood pressure is at goal. I also referred her to [facility] for transplant evaluation. She does not take her sodium in the diet. I gave her [id number] U of procrit in the office on her L UE. I increased her calcitriol to daily. I did not make any other medication changes today. All questions answered. Orders: Orders AMB Epoetin Injection Practice Supplied Today D63.1 - Anemia in chronic kidney disease, N18.4 - Chronic kidney disease, stage 4 (severe) Complete Blood Count Auto Diff Today D63.1 - Anemia in chronic kidney disease, E11.21 - Type 2 diabetes mellitus with diabetic nephropathy, E11.22 - Type 2 diabetes mellitus with diabetic chronic kidney disease, I10 - Essential (primary) hypertension, N18.4 - Chronic kidney disease, stage 4 (severe), N18.5 - Chronic kidney disease, stage 5, N25.81 - Secondary hyperparathyroidism of renal origin Creatinine Today D63.1 - Anemia in chronic kidney disease, E11.21 - Type 2 diabetes mellitus with diabetic nephropathy, E11.22 - Type 2 diabetes mellitus with diabetic chronic kidney disease, I10 - Essential (primary) hypertension, N18.4 - Chronic kidney disease, stage 4 (severe), N18.5 - Chronic kidney disease, stage 5, N25.81 - Secondary hyperparathyroidism of renal origin Calcium Today D63.1 - Anemia in chronic kidney disease, E11.21 - Type 2 diabetes mellitus with diabetic nephropathy, E11.22 - Type 2 diabetes mellitus with diabetic chronic kidney disease, I10 - Essential (primary) hypertension, N18.4 - Chronic kidney disease, stage 4 (severe), N18.5 - Chronic kidney disease, stage 5, N25.81 - Secondary hyperparathyroidism of renal origin Phosphorus Today D63.1 - Anemia in chronic kidney disease, E11.21 - Type 2 diabetes mellitus with diabetic nephropathy, E11.22 - Type 2 diabetes mellitus with diabetic chronic kidney disease, I10 - Essential (primary) hypertension, N18.4 - Chronic kidney disease, stage 4 (severe), N18.5 - Chronic kidney disease, stage 5, N25.81 - Secondary hyperparathyroidism of renal origin Blood Urea Nitrogen Today D63.1 - Anemia in chronic kidney disease, E11.21 - Type 2 diabetes mellitus with diabetic nephropathy, E11.22 - Type 2 diabetes mellitus with diabetic chronic kidney disease, I10 - Essential (primary) hypertension, N18.4 - Chronic kidney disease, stage 4 (severe), N18.5 - Chronic kidney disease, stage 5, N25.81 - Secondary hyperparathyroidism of renal origin Electrolytes Today D63.1 - Anemia in chronic kidney disease, E11. - Type 2 diabetes mellitus with diabetic nephropathy, E11. - Type 2 diabetes mellitus with diabetic chronic kidney disease, I10 - Essential (primary) hypertension, N18.4 - Chronic kidney disease, stage 4 (severe), N18.5 - Chronic kidney disease, stage 5, N25.81 - Secondary hyperparathyroidism of renal origin Medications: Changed From calcitriol administer after dialysis on dialysis days 0.25 mcg PO 3XW 30 days 13 caps 3RF To calcitriol 0.25 mcg PO DAILY 30 days 30 caps 3RF Coding Level of Care Code Est Pt Level 4 (87431) Diagnoses CKD stage 5 due to type 2 diabetes mellitus E11.; N18.5 Anemia in stage 4 chronic kidney disease N18.4; D63.1 Chronic kidney disease stage: stage 4 (severe) Diabetic nephropathy associated with type 2 diabetes mellitus Diabetes mellitus type: type 2 Secondary hyperparathyroidism (of renal origin) N25.81 Primary hypertension I10 Hypertension type: primary hypertension
== END 2024-02-02 11:30 | disposition home or self-care (01) ==
LOC: HO.HKA 11:02
PROVIDERS: PCP Family Medicine; Visit Provider Internal Medicine Nephrology
DX: E11.22 Type 2 diabetes mellitus with diabetic chronic kidney disease (principal); N18.5 Chronic kidney disease, stage 5; N18.4 Chronic kidney disease, stage 4 (severe); D63.1 Anemia in chronic kidney disease; E11.21 Type 2 diabetes mellitus with diabetic nephropathy; N25.81 Secondary hyperparathyroidism of renal origin; I12.9 Hypertensive chronic kidney disease with stage 1 through stage 4 chronic kidney disease, or unspecified chronic kidney disease
CPT/HCPCS: 99214

== ENCOUNTER → 2024-02-02 11:02 | Outpatient (BNVA) | payer MEDICAID, SELFPAY | PROVIDERS: PCP Family Medicine; Visit Provider Internal Medicine Nephrology | DX: E11.22 Type 2 diabetes mellitus with diabetic chronic kidney disease (principal); I12.0 Hypertensive chronic kidney disease with stage 5 chronic kidney disease or end stage renal disease; N18.5 Chronic kidney disease, stage 5; D63.1 Anemia in chronic kidney disease; E11.21 Type 2 diabetes mellitus with diabetic nephropathy; N25.81 Secondary hyperparathyroidism of renal origin | CPT/HCPCS: 96372; 99212; Q5106 ==

== ENCOUNTER 2024-02-25 14:35 | Outpatient (REF) | payer MEDICAID, SELFPAY ==
--- NOTE | ~2024-02-25 | MM_ITS ---
EXAMINATION: MM SCREENING DIGITAL BREAST TOMOSYNTHESIS, BILATERAL CLINICAL INFORMATION: Screening. Asymptomatic. COMPARISON: Mammography: This study is compared with prior exams dating back to 2018. TECHNIQUE: Digital breast tomosynthesis is performed in both the craniocaudal and mediolateral oblique views along with computer-aided detection (CAD). Synthesized 2D images are generated from the tomosynthesis. FINDINGS: There are scattered areas of fibroglandular density (ACR BI-RADS breast composition Category b). There is a pacemaker in superior portion of the left side of the chest. There are no significant masses, abnormal calcifications, or other abnormalities. MM/MM tomosynthesis screening BI IMPRESSION: No mammographic evidence of malignancy. ASSESSMENT: BI-RADS BI-RADS 1 - Negative RECOMMENDATION: Routine annual mammography screening. 1 year F/U This examination should not preclude the clinical evaluation of a suspicious palpable abnormality. This patient's information was entered into a reminder system with a target due date for their next mammogram.
== END 2024-02-25 14:36 | disposition home or self-care (01) ==
LOC: HO.MAMMO 14:35
PROVIDERS: PCP Family Medicine; Visit Provider Family Medicine
DX: Z12.31 Encounter for screening mammogram for malignant neoplasm of breast (principal)
CPT/HCPCS: 77063; 77067

== ENCOUNTER → 2024-02-25 15:15 | Outpatient (BNV) | payer MEDICAID, SELFPAY | PROVIDERS: PCP Family Medicine; Visit Provider Radiology Diagnostic Radiology | DX: Z12.31 Encounter for screening mammogram for malignant neoplasm of breast (principal) | CPT/HCPCS: 77063; 77067 ==

== ENCOUNTER 2024-03-03 13:41 | Outpatient (REF) | payer MEDICAID, SELFPAY ==
[2024-03-03 16:47] LABS: Thyroid Stimulating Hormone 1.17 uIU/mL (0.32-4.0); Vitamin D 25-OH Total 30.5 ng/mL (>30)
[2024-03-03 16:56] LABS: Folate 5.8 ng/mL (> or = 4.0); Vitamin B12 595 pg/mL (200-900)
[2024-03-03 17:20] LABS: Alanine Aminotransferase 10 U/L (0-31); Albumin Level 3.6 g/dL (3.5-5.0); Alkaline Phosphatase 104 U/L (39-117); Aspartate Amino Transferase 14 U/L (5-31); Bilirubin Direct 0.1 mg/dL (0.0-0.5); Bilirubin Total 0.3 mg/dL (0.0-1.0); Calcium 8.6 mg/dL (8.4-10.2); Cholesterol 146 mg/dL (<200); Glucose Random 171 mg/dL (60-115); HDL Cholesterol 37 mg/dL (>40); LDL Cholesterol Calculated 69 mg/dL (<100); Total Protein 7.9 g/dL (6.5-8.0); Triglycerides 201 mg/dL (<150)
[2024-03-03 17:21] LABS: Anion Gap 18 (12-20); Blood Urea Nitrogen 105 mg/dL (9-16); Carbon Dioxide 17 mmol/L (22-29); Chloride 105 mmol/L (96-108); Potassium 4.9 mmol/L (3.3-5.1); Sodium 135 mmol/L (135-145)
[2024-03-03 18:35] LABS: Estimated Glomerular Filt Rate 4
== END 2024-03-03 13:42 | disposition home or self-care (01) ==
LOC: HO.HHCL 13:41
PROVIDERS: Visit Provider Student in an Organized Health Care Education/Training Program
DX: R53.83 Other fatigue (principal); E55.9 Vitamin D deficiency, unspecified
CPT/HCPCS: 36415; 80048; 80061; 80076; 82306; 82607; 82746; 84443

== ENCOUNTER 2024-03-03 19:48 | Inpatient (IN) | payer MEDICAID, SELFPAY ==
--- NOTE | ~2024-03-03 | XR_ITS ---
EXAMINATION: XR CHEST CLINICAL INFORMATION: Congestion. COMPARISON: Chest radiograph 08/11/2022. TECHNIQUE: Frontal view of the chest was obtained. FINDINGS: Left-sided pacer/AICD with leads projecting over the suspected dislocation of the right atrium and right ventricle. Unchanged prominence of the cardiomediastinal silhouette. No focal airspace opacities, pleural effusion or pneumothorax. No acute osseous findings. Visualized upper abdomen is within normal limits. XR/XR chest 1V IMPRESSION: No acute cardiopulmonary findings.
--- NOTE | ~2024-03-03 | FL_ITS ---
EXAMINATION: XR FLUOROSCOPY WITH IMAGES CLINICAL INFORMATION: Retrograde pyelography. COMPARISON: CT abdomen and pelvis 03/03/2024. TECHNIQUE: Fluoroscopy Supervised By: Dr. Jung Maxwell. Fluoroscopy Time: 11.0 seconds. Cumulative Dose: 3.54 mGy. Images: 1. FINDINGS: Single image demonstrates irregular mucosal mass involving the upper pole with mass effect and distortion of the upper pole collecting system and infundibula. Please see Dr. Jung Maxwell's operative note for full details. FL/FL guidance in OR IMPRESSION: Fluoroscopy and spot films provided during retrograde pyelography.
--- NOTE | ~2024-03-03 | CT_ITS ---
EXAMINATION: CT ABDOMEN AND PELVIS WITHOUT CONTRAST CLINICAL INFORMATION: Right flank pain. COMPARISON: CT abdomen/pelvis 10/12/2018. TECHNIQUE: Multidetector volumetric imaging was performed from the superior aspect of the liver through the pubic symphysis. Sagittal and coronal reformatted images were obtained on the technologist's workstation. This CT examination was performed using dose optimization techniques as appropriate, variously including the following: *Automated exposure control *Adjustment of mA and/or kV according to patient size (this includes techniques or standardized protocols for targeted exams where dose is matched to indication/reason for exam; i.e. extremities or head) *Use of iterative reconstruction technique DLP: 542 mGy-cm FINDINGS: The lack of intravenous contrast limits evaluation of the solid visceral organs including the liver, spleen, pancreas, and kidneys. LUNG BASES: No focal consolidation or pleural effusion. Partially imaged cardiac pacer/AICD leads and coronary artery calcifications. LIVER, GALLBLADDER, AND BILIARY TREE: The liver is normal in size, shape, and attenuation. No focal hepatic lesion or biliary ductal dilatation is present. The gallbladder is unremarkable with no evidence of radiopaque gallstones, gallbladder wall thickening, or obvious pericholecystic inflammatory changes. PANCREAS: Unremarkable. SPLEEN: Unremarkable. ADRENAL GLANDS: Unremarkable. KIDNEYS AND URETERS: Limited noncontrast examination. New intermediate density masslike abnormality filling the upper calices/collecting system of the right kidney (image 27 series 2). No hydronephrosis. No significant perinephric fat stranding. BLADDER: Abnormal asymmetric wall thickening along the right wall for example measuring 4.4 x 2.2 cm on axial image 76 series 2. The masslike abnormality abuts the insertion site of the right ureter (image 75 series 2), however there is no significant hydroureter. Intraluminal air is nonspecific. GASTROINTESTINAL TRACT: No evidence of bowel obstruction. Normal appendix. Mild colonic diverticulosis with no significant pericolonic inflammatory changes. ABDOMINAL WALL: No significant hernia is appreciated. LYMPH NODES: New retroperitoneal yessica masses/lymphadenopathy, for instance a 2.9 x 3.8 cm mass posterior to the IVC adjacent to the right kidney (image 24 series 2), and a conglomerate of masses in the right periaortic region at the level of the kidneys measuring 2.2 x 2.7 cm (image 29 series 2). VASCULAR: Atherosclerotic disease. Normal caliber abdominal aorta. PELVIC VISCERA: Borderline endometrial thickening measuring 0.8 to 0.9 cm. OSSEOUS STRUCTURES: New moderate to severe compression deformity of the L2 vertebral body with more than 50% of anterior vertebral body height loss. Degenerative change of the spine. You focal lucency along the superior aspect of the T12 vertebral body, most likely representing a Schmorl node. Stable increased sclerosis of the SI joints. CT/CT abdomen pelvis wo IV con IMPRESSION: Findings are highly suspicious for malignancy including a large urinary bladder mass and possibly additional mass in the upper collecting system of the right kidney, as well as metastatic retroperitoneal lymphadenopathy. This examination is not appropriate for initial staging as no IV contrast was administered. Recommend uro-oncology evaluation. Borderline thickening of the endometrium, recommend further evaluation with pelvic ultrasound. Compared to 10/12/2018, new moderate to severe compression deformity of the L2 vertebral body. Correlate with point tenderness.
--- NOTE | ~2024-03-03 | IR_ITS ---
CLINICAL HISTORY: End-stage renal disease. The patient presents to interventional radiology for placement of a tunneled central venous catheter for hemodialysis. PROCEDURES: 1. Real-time ultrasound-guided access into the right internal jugular vein after documentation of selected vessel patency, and permanent imaging storing in the patient record. 2. Placement of a 14.5 fr 23 cm tunneled, dual-lumen hemodialysis catheter. Clinician: Juan Biggs PA-C MEDICATIONS: -Fentanyl 75 mcg, Lidocaine 1% 10 mL SQ. -Antibiotics: Currently on Rocephin -For additional details, please see nursing flowsheet. COMPLICATIONS: None. ESTIMATED BLOOD LOSS: <5 ml SPECIMENS: None FLUOROSCOPY TIME: 0.6 min PROCEDURE NOTE: The procedure, risks, benefits, and alternatives were carefully explained to patient, and written informed consent was obtained. The patient was placed supine on the fluoroscopy table. A timeout was performed. The right neck and chest was prepped and draped in usual sterile fashion. Local anesthesia was administered to the access site with lidocaine. Under ultrasound guidance, the right internal jugular vein was accessed with a 5 Fr micropuncture set. A 0.035 in wire was advanced to the IVC to maintain access during the tunneling process. Next, subcutaneous lidocaine was administered to the chest. Using blunt dissection, a subcutaneous tunnel was created that connects from the upper chest to the venotomy site. The dialysis catheter was pulled through the tunnel. The tract in the vein was dilated and a peel-away sheath was advanced over the wire. The catheter was advanced through the sheath, which was subsequently peeled away. The catheter was tested, flushed, and sutured to the skin with its tip in the high right atrium. A permanent fluoroscopic image of the chest was saved to PACS. The catheter ports were packed with heparin per routine protocol. The patient was stable after the procedure and was transferred to the post anesthesia care unit. . FINDINGS: 1. Patent right internal jugular vein. 2. Placement of a tunneled, dual-lumen hemodialysis catheter as above. 3. Catheter flushes and aspirates very well with a 10 mL syringe. No pneumothorax. IR/IR cvc insert central tunnel IMPRESSION: Placement of a tunneled hemodialysis catheter in the right internal jugular vein. PLAN: -The catheter may be used immediately. This procedure was performed by Juan Biggs PA-C, and directly supervised by Dr. Renae.
[2024-03-03 20:03] VITALS: BP 148/85; PULSE 88; RESP 18; TEMP 36.6; O2SAT 98; BMI 30.2
--- NOTE | 2024-03-03 20:10 | ED.GENADULT ---
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 She makes urine but very little. She went to [facility] today and had labs done and was told to go to ER as her Cr almost doubled. She notes she is compliant with all of her medications. She denies headaches, chest pain, trouble breathing. complaint: nausea, dizziness Onset (ago): week(s) (3) Radiation: non-radiation Severity: moderate Relieving factors: none Exacerbating factors: movement Associated symptoms: loss of appetite, malaise, nausea/vomiting and weakness Treatments prior to arrival: none Related Data Home Medications ?Medication ?Instructions ?Recorded ?Confirmed amitriptyline 50 mg tablet 50 mg PO BEDTIME 10/22/23 01/20/24 aspirin 81 mg tablet,delayed 81 mg PO QAM 10/22/23 01/20/24 release cholecalciferol (vitamin D3) 50 50 mcg PO QAM 10/22/23 01/20/24 mcg (2,000 unit) capsule (Vitamin D3) dulaglutide 1.5 mg/0.5 mL mg subcut QWEEK 10/22/23 01/20/24 subcutaneous pen injector (Trulicity) ferrous sulfate 325 mg (65 mg 325 mg PO QPM 10/22/23 01/20/24 iron) tablet (FeroSul) insulin glargine 100 unit/mL (3 30 unit subcut BEDTIME 10/22/23 01/20/24 mL) subcutaneous pen (Lantus Solostar U-100 Insulin) insulin lispro 100 unit/mL 8 - 18 unit subcut TID 10/22/23 01/20/24 subcutaneous pen lancets 33 gauge (TRUEplus Lancets) #100 ea 10/22/23 01/20/24 omeprazole 20 mg capsule,delayed 20 mg PO 10/22/23 01/20/24 release pen needle, diabetic 32 gauge x #1,200 ea 10/22/23 01/20/24 (Pentips) rosuvastatin 40 mg tablet 40 mg PO BEDTIME 10/22/23 01/20/24 metoprolol tartrate 25 mg tablet 50 mg PO DAILY 02/02/24 Previous Rx's ?Medication ?Instructions ?Recorded oxycodone-acetaminophen 5 mg-325 1 tab PO Q8H PRN pain #10 tabs 12/13/23 mg tablet (Percocet) sodium,potassium,mag sulfates 17.5 See Rx Instructions PO .COMPLEX 01/20/24 gram-3.13 gram-1.6 gram oral soln #354 mL (Suprep Bowel Prep Kit) calcitriol 0.25 mcg capsule 0.25 mcg PO DAILY 30 days #30 caps 02/02/24 Allergies Allergy/AdvReac Type Severity Reaction Status Date / Time No Known Allergies Allergy Verified 03/03/24 20:05 [No Known Allergies*] Review of Systems Review of Systems: Constitutional : No Fever, No Chills, pos Fatigue ENT/Mouth : No sore throat, No Rhinorrhea Eyes: No Eye Pain, No Swelling, No Redness Cardiovascular : No Chest Pain, No SOB, No Dyspnea on Exertion Respiratory : No Cough, No Sputum Gastrointestinal : pos Nausea, pos Vomiting, No Diarrhea, No abdominal Pain Genitourinary : No Dysuria, No Urinary Frequency, No Hematuria, Musculoskeletal : No joint pain, pos Myalgias, No Joint Swelling Skin : No Skin Lesions, No rash Neuro : No Weakness, No Numbness, No Dizziness, no Headache Psych : pos Anxiety/Panic, No Depression, pos insomnia Heme/Lymph: No Bruising, No Bleeding,No Lymphadenopathy Endocrine : No Polyuria, No Polydipsia All other systems reviewed and are negative PMFSH Past Medical History Attestation statement: The following information was validated with the patient. Source: old records reviewed Medical History Pacemaker History of adenomatous polyp of colon Cardiomyopathy Chronic kidney disease, stage 4 (severe) Hypertension Type 2 diabetes mellitus with diabetic nephropathy Social History Social History Alcohol intake: never Comment: counts correct Patient Tobacco Use Status: Never used Tobacco Smoked in Last 30 Days: No Use of substances other than those prescribed or required for medical reasons: No Advance Directives: No Advance Directives Information Provided: No Do you have a plan to hurt others: No Plan Physical Exam ED Vital Signs: Vital Signs - 24 hr 03/03/24 20:03 03/03/24 21:35 03/03/24 21:35 Temperature 97.9 F Pulse Rate 88 89 91 Respiratory Rate 18 Blood Pressure 148/85 H 159/78 H 158/77 H Pulse Oximetry 98 Oxygen Delivery Method Room Air 03/03/24 21:35 Temperature Pulse Rate 90 Respiratory Rate Blood Pressure 141/63 H Pulse Oximetry Oxygen Delivery Method BMI result Body Mass Index 30.2 Appearance: Alert. Oriented X3. No acute distress. Eyes: Pupils equal, round and reactive to light. ENT: Pharynx normal. Neck: Normal inspection. Neck supple. CVS: Normal heart rate and rhythm. Pulses normal. Respiratory: No respiratory distress. Breath sounds normal. Abdomen: Soft and non-tender. Skin: Skin warm and dry. pale skin color. Normal skin turgor. Extremities: No lower extremity edema. LUE AVF + thrill felt Neuro: Oriented X 3. No motor deficit. No sensory deficit. steady gait Course Course Course Narrative: This is an RME performed by Christophe Buckley CNP: Additional HPI, ROS, PE not included below will be deferred to primary provider. Patient is a 58-year-old female who presents to the emergency department for evaluation, reporting,Over the past 3 weeks with progressive Fatigue, difficulty sleeping at night, dizziness made worse with ambulation any position change, nausea and associated vomiting, right lower back pain, she reports that she does still make urine but only very small amounts, has been without dysuria or hematuria, CKD 5. Denies chest pain, headache, vision changes. She had labs done with her primary care doctor, was advised that her kidney function is worsening, she has not yet started on dialysis, advised to come to the ED. following with Nephrology Dr. Beatty Plan: Labs, EKG, urinalysis, viral panel, orthostatics Reevaluation(s) Reevaluation #1: Reviewed serum labs, 01/28/2024 BUN creatinine 62/6.37, today with outpatient labs BUN creatinine 105/10.23, electrolytes within normal range, random glucose 171. 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 made aware, patient to be brought back to main ED Reevaluation #2: + UA at this time infection suspected - cultures lactic acid and IV ceftriaxone ordered - CT scan for stone as well 957pm Reevaluation #3: I spoke to the patient and her family about the CT scan findings and concern for malignancy Medications Administered Generic Name Dose Route Start Last Admin Trade Name Freq PRN Reason Stop Dose Admin Heparin Sodium (Porcine) 5,000 unit 03/03/24 22:30 03/03/24 23:22 Heparin Sodium,Porcine 5,000 Unit/Ml Vial SUBCUT 5,000 unit Q12H RAYMOND Administration Ceftriaxone Sodium 1 gm/ 50 mls @ 100 mls/hr 03/03/24 22:30 03/04/24 02:10 Sodium Chloride IV Infused Q24H RAYMOND Infusion Insulin Glargine 15 unit 03/03/24 23:15 03/03/24 23:22 Insulin Glargine,Hum.Rec.Anlog 100 Unit/Ml 10 Ml Vial SUBCUT 15 unit BEDTIME RAYMOND Administration Sodium Chloride 3 ml 03/04/24 00:00 03/04/24 02:41 0.9 % Sodium Chloride Flush 3 Ml Syringe IVFLUSH Not Given QSHIFT RAYMOND Discontinued Medications Generic Name Dose Route Start Last Admin Trade Name Freq PRN Reason Stop Dose Admin Ceftriaxone Sodium 1 gm/ 50 mls @ 100 mls/hr 03/03/24 21:55 03/03/24 23:13 Sodium Chloride IV 03/03/24 22:24 Not Given ONCE ONE Sodium Chloride 500 mls @ 500 mls/hr 03/04/24 01:30 03/04/24 03:40 Ns IV 03/04/24 02:29 Infused .Q1H RAYMOND Infusion Insulin Glargine 24 unit 03/03/24 22:25 03/03/24 23:13 Insulin Glargine,Hum.Rec.Anlog 100 Unit/Ml 10 Ml Vial SUBCUT Not Given BEDTIME RAYMOND Medical Decision Making Medical Decision Making MDM Narrative: 58 yo female with PMH of CKD follows with Dr Coleman, HTN, cardiomyopathy EF 20%, DM, PPM, LUE AVF - Janessa here with c/o nauseas, dizziness, not feeling well x 3 weeks and R low back pain just had labs done today at this time EKG, CXR, CT scan for renal colic, UA and will notify Dr. Coleman of lab changes symptoms could be related to uremia Differential Diagnosis Differential Diagnoses: The differential diagnosis associated with the presentation includes acute on chronic renal failure Admission/Observation Consideration of admission/observation: Escalation of care including admission/observation considered admit for further worup Consult Healthcare Provider Management of the patient was discussed with: Hospitalist (will admit) and Certified Ethical Hacker (Dr. Coleman aware) Lab Data MDM Lab Attestation statement: I reviewed the patient's lab results. Labs: Lab Results 03/03/24 03/03/24 Range/Units 21:01 22:19 Lactic Acid 1.1 (0.5-2.0) mmol/L Urine Color Yellow Urine Appearance Turbid Urine pH 6.0 (5.0-9.0) Ur Specific [place] 1.015 (1.005-1.025) Urine Protein 300 (3+) H (Neg-Trace) mg/dL Urine Glucose (UA) 100 H (Negative) mg/dL Urine Ketones Negative (Negative) mg/dL Urine Blood Moderate (2+) H (Negative) Urine Nitrite Negative (Negative) Ur Leukocyte Esterase Large (3+) H (Negative) Urine RBC >20 H (0-2) /HPF Urine WBC >50 H (0-5) /HPF Ur Squamous Epith Cells 6-10 (0-2) /HPF Urine Bacteria 4+ (None Seen) Hyaline Casts 3-5 (0-2) /LPF Influenza Type A (PCR) NEGATIVE (Negative) Influenza Type B (PCR) NEGATIVE (Negative) RSV RNA Qual (PCR) NEGATIVE (Negative) SARS-CoV-2 RNA (RT-PCR) NEGATIVE (Negative) Independent Interpretation I performed an independent interpretation of an: EKG, Plain X-Ray (no CHF) and CT Scan Interpretation: Rate: 93 Rhythm: av paced [place]: left Normal P waves. Normal INDERJIT. wide qrs ST T wave : no [place], inverted t wave I and aVL no sig change from priors qTC: 477 prior studies: no sig change from priors The study has been interpreted contemporaneously by me. . Radiology Impression Discussion of test interpretation with radiology: I have reviewed the radiologist's reading. Independent Historian Clinical information obtained from an independent historian. History obtained from or confirmed by: Friend External Record Review External record reviewed: Inpatient record and Office record Discharge Plan Discharge Clinical Impression: Acute kidney injury superimposed on chronic kidney disease, Uremia, Acute UTI, Mass of bladder Patient Disposition: Admitted As Inpatient
--- NOTE | 2024-03-03 20:21 | ECG_ITS ---
Test Reason : WEAKNESS Blood Pressure : / mmHG Vent. Rate : 093 BPM Atrial Rate : 093 BPM P-R Int : 136 ms QRS Dur : 134 ms QT Int : 384 ms P-R-T Axes : 067 -19 153 degrees QTc Int : 477 ms Atrial-sensed ventricular-paced rhythm Abnormal ECG When compared with ECG of 14-JUN-2019 08:58, Electronic ventricular pacemaker has replaced Sinus rhythm Referred By: Gwendolyn Buckley Electronically Signed By:PATY FAUSTIN MD
[2024-03-03 21:14] LABS: Appearance Urine Turbid; Color Urine Yellow; Glucose Urine UA 100 mg/dL (Negative); Leukocyte Esterase Urine Large (3+) (Negative); Nitrite Urine Negative (Negative); Specific Gravity - Urine 1.015 (1.005-1.025); UMIC TRIGGER UACC YES; Urine Blood Moderate (2+) (Negative); Urine Ketones Negative (Negative); Urine Protein 300 (3+) mg/dL (Neg-Trace)
[2024-03-03 21:35] VITALS: BP 141/63; BP 158/77; BP 159/78; PULSE 89; PULSE 90; PULSE 91
[2024-03-03 21:48] LABS: Bacteria Urine 4+ (None Seen); Influenza A PCR NEGATIVE (Negative); Influenza B PCR NEGATIVE (Negative); RBC Urine >20 /HPF (0-2); Resp Syncy Virus RNA Qual PCR NEGATIVE (Negative); SARS COV2 PCR INHOUSE NEGATIVE (Negative); UACC Culture Trigger YES; WBC Urine >50 /HPF (0-5)
--- NOTE | 2024-03-03 22:23 | P.HPHOSP_ITS ---
History of Present Illness Date of Service: 03/03/24 Chief Complaint: Abnormal labs This is a 58-year-old female with pertinent history of CKD stage 5, cardiomyopathy with EF 20%, anemia due to CKD, secondary hyperparathyroidism, mood disorder, gastroesophageal reflux disease, insulin-dependent diabetes mellitus who presents to the emergency department for evaluation of abnormal labs. Patient states has been having fatigue, nausea that has been ongoing for 3 weeks. Also has been having dizziness and generalized malaise. She further complains of right flank pain that has been ongoing for a while. Also has change in odor and color of urine with urinary urgency. Patient underwent blood work outpatient and found that her creatinine is elevated and was sent to the ER. No fever, chills, chest discomfort, palpitations, shortness of breath, changes in bowel habits. In the emergency department, urine concerning for UTI. Patient's creatinine noted to be around 10. Imaging concerning for bladder mass with additional mass in the upper collecting system of right kidney Review of Systems Constitutional: Constitutional: Reports fatigue, Reports lethargy, Reports malaise and Reports weakness Cardiovascular: Cardiovascular: Reports no additional cardiovascular complaints Respiratory: Respiratory: Reports no additional respiratory complaints Gastrointestinal: Gastrointestinal: Reports abdominal pain Genitourinary: Genitourinary: Reports urinary urgency Neurologic: Reports weakness Endocrine: Endocrine: Reports fatigue [facility] Medical History Pacemaker History of adenomatous polyp of colon Cardiomyopathy Chronic kidney disease, stage 4 (severe) Hypertension Type 2 diabetes mellitus with diabetic nephropathy Pertinent family history: No family history of early CAD Social History Alcohol intake: never Comment: counts correct Patient Tobacco Use Status: Never used Tobacco Smoked in Last 30 Days: No Use of substances other than those prescribed or required for medical reasons: No Advance Directives: No Advance Directives Information Provided: No Do you have a plan to hurt others: No Plan Meds Allergies Allergy/AdvReac Type Severity Reaction Status Date / Time No Known Allergies Allergy Verified 03/03/24 20:05 [No Known Allergies*] Active Medications: Current Medications Ceftriaxone Sodium 1 gm/ (Sodium Chloride) 50 mls @ 100 mls/hr IV ONCE ONE Stop: 03/03/24 22:24 Home Medications ?Medication ?Instructions ?Recorded ?Confirmed ?Last Taken ?Type amitriptyline 50 mg tablet 50 mg PO BEDTIME 10/22/23 01/20/24 Unknown History aspirin 81 mg tablet,delayed 81 mg PO QAM 10/22/23 01/20/24 12/12/23 History release cholecalciferol (vitamin D3) 50 50 mcg PO QAM 10/22/23 01/20/24 Unknown History mcg (2,000 unit) capsule (Vitamin D3) dulaglutide 1.5 mg/0.5 mL mg subcut QWEEK 10/22/23 01/20/24 11/28/23 History subcutaneous pen injector (Trulicity) ferrous sulfate 325 mg (65 mg 325 mg PO QPM 10/22/23 01/20/24 Unknown History iron) tablet (FeroSul) insulin glargine 100 unit/mL (3 30 unit subcut BEDTIME 10/22/23 01/20/24 Unknown History mL) subcutaneous pen (Lantus Solostar U-100 Insulin) insulin lispro 100 unit/mL 8 - 18 unit subcut TID 10/22/23 01/20/24 Unknown History subcutaneous pen lancets 33 gauge (TRUEplus Lancets) #100 ea 10/22/23 01/20/24 Unknown History omeprazole 20 mg capsule,delayed 20 mg PO 10/22/23 01/20/24 Unknown History release pen needle, diabetic 32 gauge x #1,200 ea 10/22/23 01/20/24 Unknown History (Pentips) rosuvastatin 40 mg tablet 40 mg PO BEDTIME 10/22/23 01/20/24 Unknown History metoprolol tartrate 25 mg tablet 50 mg PO DAILY 02/02/24 Unknown History Physical Exam Vital Signs and Narrative: Vital Signs: Last Vital Signs Temp 97.9 F 03/03/24 20:03 Pulse 90 03/03/24 21:35 Resp 18 03/03/24 20:03 BP 141/63 H 03/03/24 21:35 Pulse Ox 98 03/03/24 20:03 O2 Del Method Room Air 03/03/24 20:03 BMI result Body Mass Index 30.2 Middle-aged female lying in bed in no distress Neck supple, no JVD Regular rate and rhythm, S1-S2 heard Regular breath sounds bilaterally, no wheezing or crackles appreciated Abdomen soft nontender, no guarding, no rigidity Patient is awake, alert and oriented to self, place, time and person ; no focal motor deficit Psych: Normal mood No pedal edema Results Labs Labs: Laboratory Results - last 24 hr 03/03/24 21:01 Urine Color Yellow Urine Appearance Turbid Urine pH 6.0 Ur Specific [place] 1.015 Urine Protein 300 (3+) H Urine Glucose (UA) 100 H Urine Ketones Negative Urine Blood Moderate (2+) H Urine Nitrite Negative Ur Leukocyte Esterase Large (3+) H Urine RBC >20 H Urine WBC >50 H Ur Squamous Epith Cells 6-10 Urine Bacteria 4+ Hyaline Casts 3-5 Influenza Type A (PCR) NEGATIVE Influenza Type B (PCR) NEGATIVE RSV RNA Qual (PCR) NEGATIVE SARS-CoV-2 RNA (RT-PCR) NEGATIVE Assessment and Plan (1) Acute UTI: Status: Acute (2) Bladder mass: Status: Acute (3) Acute kidney injury superimposed on chronic kidney disease: Status: Acute Plan This is a 58-year-old female with pertinent history of CKD stage 5, cardiomyopathy with EF 20%, anemia due to CKD, secondary hyperparathyroidism, mood disorder, gastroesophageal reflux disease, insulin-dependent diabetes mellitus who presents to the emergency department for evaluation of abnormal labs. #. Acute kidney injury on CKD stage 5: IV crystalloids given in the ER. Nephrology consulted, appreciate assistance #. Bladder mass with right kidney mass noted on imaging: Oncology and urology consulted #. Acute UTI: Initiating empiric IV antibiotics. Follow urine culture #. Insulin-dependent diabetes mellitus: Initiating basal plus insulin regimen #. Mood disorder: Continue home mood stabilizers #. Gastroesophageal reflux disease: On PPI #. Cardiomyopathy with EF 20%: On beta-luis f. Not on diuretics or Chandana/Arb #. Secondary hyperparathyroidism due to chronic kidney disease: On calcitriol Med rec pending DVT prophylaxis: Heparin Full code Admit as inpatient and will require two night minimum hospital stay for monit oring of kidney function, evaluation of bladder mass, IV antibiotics (as above), which is not possible in a lesser acute setting. Quality Stroke Does the patient have a stroke diagnosis?: No VTE Prior VTE?: No VTE Risk Level:: Medical - moderate - high VTE Device Contraindication: Treatment Not Indicated VTE Drug Contraindication: N/A - Med Ordered
--- NOTE | 2024-03-03 22:33 | PC.NURSE ---
Addendum entered by Glenda Vila RN 03/03/24 23:24: Late entry: charge nurse aware and will attempt IV as well. Original Note: Unable to obtain IV by two nurses.
[2024-03-03 22:35] LABS: Lactic Acid 1.1 mmol/L (0.5-2.0)
[2024-03-03 23:04] LABS: Glucose, Whole Blood 101 mg/dL (60-115)
[2024-03-03] MEDS: Insulin Glargine,Hum.rec.anlog 100 UNIT/ML 10 ML VIAL 15 UNIT SUBCUT (23:22)
[2024-03-03] MEDS: Heparin Sodium,Porcine 5,000 UNIT/ML VIAL 5000 UNIT SUBCUT (23:22)
[2024-03-03 23:29] VITALS: BP 148/75; PULSE 89; RESP 21; O2SAT 99
--- NOTE | 2024-03-03 23:51 | PC.NURSE ---
report received and care assumed at 2300. Pt found to be awake and alert, conversing in full/complete sentences and without distress noted. She reports presence of 7/10 chronic back pain, staff assisted with repositioning for comfort. RN provided pt with night time medication, lantus dose adjusted d/t POC of 101 per hospitalist order. This RN attempted an unsuccessful line x1 after 2 previous nurses, md mejia aware and to attempt an US guided IV line. pt expressed concerns regarding low blood sugar and provided with sandwich and beverage as she reports not eating all day. daughter remains at bedside, no questions reported
[2024-03-04] VITALS (11 sets, daily range): BP systolic 147–174; BP diastolic 68–79; PULSE 88–102; RESP 17–21; TEMP 36.2–37.1; O2SAT 93–100; BMI 30.2
[2024-03-04] MEDS: cefTRIAXone sodium 1 GM in 0.9 % Sodium Chloride 50 ML IV ×2 (01:40→21:37)
[2024-03-04] MEDS: 0.9 % Sodium Chloride 500 ML IV (02:39)
--- NOTE | 2024-03-04 04:14 | PM.HEMONCCN ---
Subjective - Subjective Chief complaint: renal and bladder neoplasms Patient: new to practice Consult date: 03/04/24 Primary Care Provider: Anne Talamantes DO HPI - Consult Narrative Reason for consult: renal and bladder mass Narrative: Jazmine Max is a 58 year old female known to vascular surgery and nephrology for ESRD and left arm fistuls presenting with worsening CKD. CT scan of abdomen showe a bladder mass and renal pelvis mass with retroperitoneal lymphadenopathy Review of Systems - Neurologic Reports weakness [facility] Medical History: Medical History (Last Reviewed 03/04/24 @ 01:23 by Boaz De Anda MD) Cardiomyopathy Chronic kidney disease, stage 4 (severe) History of adenomatous polyp of colon Hypertension Pacemaker Type 2 diabetes mellitus with diabetic nephropathy Social History: Social History (Last Reviewed 03/04/24 @ 01:23 by Boaz De Anda MD) Tobacco History: Patient Tobacco Use Status: Never used Tobacco Smoked in Last 30 Days: No Substance Use History: Use of substances other than those prescribed or required for medical reasons: No Advance Directives: Advance Directives: No Advance Directives Information Provided: No Homicidal Assessment: Do you have a plan to hurt others: No Plan Home Medications and Allergies Current Medications: Current Medications Acetaminophen (Acetaminophen 325 Mg Tablet) 650 mg PO Q6H PRN PRN Reason: Pain, Mild (Pain Scale 1-3) Glucose (Glucose Gel 15 Gm Gel..Gram.) 15 gm PO Q15M PRN; Protocol PRN Reason: per Hypoglycemia Standing Ord. Heparin Sodium (Porcine) (Heparin Sodium,Porcine 5,000 Unit/Ml Vial) 5,000 unit SUBCUT Q12H [facility] Last Admin: 03/03/24 23:22 Dose: 5,000 unit Ceftriaxone Sodium 1 gm/ (Sodium Chloride) 50 mls @ 100 mls/hr IV Q24H [facility] Last Infusion: 03/04/24 02:10 Dose: Infused Dextrose (D10) 250 mls @ 750 mls/hr IV Q15M PRN; Protocol PRN Reason: per Hypoglycemia Standing Ord. Insulin Glargine (Insulin Glargine,Hum.Rec.Anlog 100 Unit/Ml 10 Ml Vial) 15 unit SUBCUT BEDTIME [facility] Last Admin: 03/03/24 23:22 Dose: 15 unit Insulin Human Lispro (Insulin Lispro 100 Unit/Ml 3 Ml Vial) 0 unit SUBCUT QIDACHS [facility]; Protocol Melatonin (Melatonin 3 Mg Tablet) 6 mg PO BEDTIME PRN PRN Reason: Insomnia Ondansetron HCl (Ondansetron Hcl 4 Mg/2 Ml Vial) 4 mg IVPUSH Q8H PRN PRN Reason: Nausea and Vomiting Sodium Chloride (0.9 % Sodium Chloride Flush 3 Ml Syringe) 3 [facility] Last Admin: 03/04/24 02:41 Dose: Not Given Home Medications ?Medication ?Instructions ?Recorded ?Confirmed ?Type amitriptyline 50 mg tablet 50 mg PO BEDTIME 10/22/23 03/04/24 History aspirin 81 mg tablet,delayed 81 mg PO QAM 10/22/23 03/04/24 History release cholecalciferol (vitamin D3) 50 50 mcg PO QAM 10/22/23 03/04/24 History mcg (2,000 unit) capsule (Vitamin D3) dulaglutide 1.5 mg/0.5 mL 1.5 mg subcut [facility] 10/22/23 03/04/24 History subcutaneous pen injector (Trulicity) ferrous sulfate 325 mg (65 mg 325 mg PO QPM 10/22/23 03/04/24 History iron) tablet (FeroSul) insulin glargine 100 unit/mL (3 25 unit subcut BEDTIME 10/22/23 03/04/24 History mL) subcutaneous pen (Lantus Solostar U-100 Insulin) insulin lispro 100 unit/mL 8 - 18 unit subcut TID 10/22/23 03/04/24 History subcutaneous pen lancets 33 gauge (TRUEplus Lancets) #100 ea 10/22/23 01/20/24 History omeprazole 20 mg capsule,delayed 20 mg PO BID 10/22/23 03/04/24 History release pen needle, diabetic 32 gauge x #1,200 ea 10/22/23 01/20/24 History 5/32 (Pentips) rosuvastatin 40 mg tablet 40 mg PO BEDTIME 10/22/23 03/04/24 History metoprolol tartrate 25 mg tablet 25 mg PO BID 02/02/24 03/04/24 History Allergies Allergy/AdvReac Type Severity Reaction Status Date / Time No Known Allergies Allergy Verified 03/03/24 20:05 [No Known Allergies*] Physical Exam Vital signs: Vital Signs Temp 98.5 F 03/04/24 01:58 Pulse 94 03/04/24 03:56 Resp 17 03/04/24 03:56 BP 147/69 H 03/04/24 03:56 Pulse Ox 97 03/04/24 03:56 O2 Del Method Room Air 03/04/24 03:56 Intake & Output 03/03/24 03/03/24 03/04/24 06:59 18:59 06:59 Intake Total 50 / 50 Balance 50 / 50 Intake: Intake, IV Amount 50 / 50 cefTRIAXone sodium 1 gm In 0.9 50 / 50 % Sodium Chloride 50 ml @ 100 mls/hr IV Q24H [facility] Rx#: [id number] Other: Weight 72.575 kg Weight 72.575 kg Hem/Onc Consult Result - Labs CBC & Chem 7: 03/04/24 05:44 03/04/24 05:44 Labs: Urine 03/03/24 Range/Units 21:01 Urine Color Yellow Urine Appearance Turbid Urine pH 6.0 (5.0-9.0) Ur Specific [place] 1.015 (1.005-1.025) Urine Protein 300 (3+) H (Neg-Trace) mg/dL Urine Glucose (UA) 100 H (Negative) mg/dL Assessment and Plan Patient Active problem list reviewed?: Yes - Time Spent With Patient Time Spent with Patient (in minutes): 30
[2024-03-04 06:16] LABS: MANUAL DIFF FLAG NO
[2024-03-04 06:29] LABS: Basophils Percent Auto 0.6 % (0-2); Eosinophils Absolute Auto 0.2 X10*3/uL (0.0-0.4); Eosinophils Percent Auto 2.9 % (0-4); Hematocrit 25.4 % (37.0-47.0); Hemoglobin 8.4 g/dl (12.0-16.0); Imm Gran Abs Auto 0.02 X10*3/uL (0.00-0.03); Imm Gran Pct Auto 0.3 % (0.0-0.4); Lymphocytes Absolute Auto 1.3 X10*3/uL (1.2-4.9); Lymphocytes Percent Auto 19.7 % (20-40); Mean Corpuscular HGB Conc 33.1 g/dl (31.0-35.0); Mean Corpuscular Hemoglobin 28.7 pg (27.0-33.0); Mean Corpuscular Volume 86.7 fL (80.0-98.0); Mean Platelet Volume 11.1 fL (9.4-12.3); Monocytes Percent Auto 14.7 % (2-11); Neutrophils Absolute Auto 4.1 x10*3/uL (2.0-8.3); Neutrophils Percent Auto 61.8 % (45-73); Platelet Count 140 X10*3/uL (160-400); Red Blood Count 2.93 X10*6/uL (4.20-5.50); White Blood Count 6.6 X10*3/uL (4.8-10.8)
[2024-03-04 06:53] LABS: Anion Gap 20 (12-20); Blood Urea Nitrogen 95 mg/dL (9-16); Calcium 8.1 mg/dL (8.4-10.2); Carbon Dioxide 13 mmol/L (22-29); Chloride 107 mmol/L (96-108); Creatinine Clr Calc Pharmacy 5.4; Estimated Glomerular Filt Rate 4; Glucose Random 144 mg/dL (60-115); Potassium 4.6 mmol/L (3.3-5.1); Sodium 135 mmol/L (135-145)
[2024-03-04 07:47] LABS: Glucose, Whole Blood 145 mg/dL (60-115)
[2024-03-04] MEDS: Sodium Bicarbonate 650 MG TABLET 1300 MG PO ×3 (08:41→21:34)
[2024-03-04] MEDS: 0.9 % Sodium Chloride Flush 3 ML SYRINGE IVFLUSH ×3 (08:41→21:35)
[2024-03-04] MEDS: Heparin Sodium,Porcine 5,000 UNIT/ML VIAL 5000 UNIT SUBCUT ×2 (08:41→21:34)
--- NOTE | 2024-03-04 09:22 | PHA.MEDREC ---
Addendum entered by Oliverio Bunch 03/04/24 09:33: Patient also confirmed Lantus 25 units at bedtime and humalog is taken depending on what she eats. Original Note: Pharmacy Consult ? Medication Reconciliation Pharmacy has completed the medication reconciliation. Spoke with patient through an animal researcher, she brought in a medbox list from home. Farxiga is still being filled in her medboxes but patient reports she takes it out of her box and puts it to the side, she has not taken it for about 2 months. She also confirmed she is no longer taking entresto. She says she does Trulicity on Sundays and last had it on the 02/19, claims show last fill for trulicity is 09/06/23, cannot confirm with [facility] as they are closed. Her medbox list showed metoprolol tartrate 25mg BID however her last claim says she filled 50mg BID, when I asked the patient she said she believes its 25mg BID, keeping 25mg BID on her home list, provider is aware. Patient confirmed calcitriol once daily. Patient reports she last took her medications yesterday.
[2024-03-04 12:07] LABS: Glucose, Whole Blood 168 mg/dL (60-115)
--- NOTE | 2024-03-04 12:26 | PM.HEMONCCN ---
Subjective - Subjective Chief complaint: malignancies Primary Care Provider: Anne Talamantes DO HPI - Consult Narrative Reason for consult: gu tumors Narrative: 58 year old woman seen in the ER. Imaging shows large mass in a kidney andanother in the bladder with retroperitoneal adenopathy. She is known to our faciilty for renal failure and has has a fistula created in the left arm for dialysis.The BUN is 105 She is not known to have malignant disease. Review of Systems - Constitutional Reports anorexia - ENT Reports hearing loss - Cardiovascular Reports fast heart rate - Respiratory Reports pain with cough - Gastrointestinal Reports abdominal pain - Genitourinary Reports other - Musculoskeletal Reports decreased muscle mass - Neurologic Reports weakness PMFSH Medical History: Medical History (Last Reviewed 03/04/24 @ 01:23 by Boaz De Anda MD) Cardiomyopathy Chronic kidney disease, stage 4 (severe) History of adenomatous polyp of colon Hypertension Pacemaker Type 2 diabetes mellitus with diabetic nephropathy Social History: Social History (Last Reviewed 03/04/24 @ 01:23 by Boaz De Anda MD) Living Situation History: Household Members: Children Housing: Unknown / Unable to asses Do you presently have visiting nurse or other home services: No Tobacco History: Patient Tobacco Use Status: Never used Tobacco Home Medications and Allergies Current Medications: Current Medications Acetaminophen (Acetaminophen 325 Mg Tablet) 650 mg PO Q6H PRN PRN Reason: Pain, Mild (Pain Scale 1-3) Glucose (Glucose Gel 15 Gm Gel..Gram.) 15 gm PO Q15M PRN; Protocol PRN Reason: per Hypoglycemia Standing Ord. Heparin Sodium (Porcine) (Heparin Sodium,Porcine 5,000 Unit/Ml Vial) 5,000 unit SUBCUT Q12H [facility] Last Admin: 03/04/24 08:41 Dose: 5,000 unit Ceftriaxone Sodium 1 gm/ (Sodium Chloride) 50 mls @ 100 mls/hr IV Q24H [facility] Last Infusion: 03/04/24 02:10 Dose: Infused Dextrose (D10) 250 mls @ 750 mls/hr IV Q15M PRN; Protocol PRN Reason: per Hypoglycemia Standing Ord. Insulin Glargine (Insulin Glargine,Hum.Rec.Anlog 100 Unit/Ml 10 Ml Vial) 15 unit SUBCUT BEDTIME [facility] Last Admin: 03/03/24 23:22 Dose: 15 unit Insulin Human Lispro (Insulin Lispro 100 Unit/Ml 3 Ml Vial) 0 unit SUBCUT QIDACHS [facility]; Protocol Last Admin: 03/04/24 07:32 Dose: Not Given Melatonin (Melatonin 3 Mg Tablet) 6 mg PO BEDTIME PRN PRN Reason: Insomnia Ondansetron HCl (Ondansetron Hcl 4 Mg/2 Ml Vial) 4 mg IVPUSH Q8H PRN PRN Reason: Nausea and Vomiting Sodium Bicarbonate (Sodium Bicarbonate 650 Mg Tablet) 1,300 mg PO TID [facility] Last Admin: 03/04/24 08:41 Dose: 1,300 mg Sodium Chloride (0.9 % Sodium Chloride Flush 3 Ml Syringe) [facility] Last Admin: 03/04/24 08:41 Dose: 3 ml Home Medications ?Medication ?Instructions ?Recorded ?Confirmed ?Type amitriptyline 50 mg tablet 50 mg PO BEDTIME 10/22/23 03/04/24 History aspirin 81 mg tablet,delayed 81 mg PO QAM 10/22/23 03/04/24 History release cholecalciferol (vitamin D3) 50 50 mcg PO QAM 10/22/23 03/04/24 History mcg (2,000 unit) capsule (Vitamin D3) dulaglutide 1.5 mg/0.5 mL 1.5 mg subcut GORDON 10/22/23 03/04/24 History subcutaneous pen injector (Trulicity) ferrous sulfate 325 mg (65 mg 325 mg PO QPM 10/22/23 03/04/24 History iron) tablet (FeroSul) insulin glargine 100 unit/mL (3 25 unit subcut BEDTIME 10/22/23 03/04/24 History mL) subcutaneous pen (Lantus Solostar U-100 Insulin) insulin lispro 100 unit/mL 8 - 18 unit subcut TID 10/22/23 03/04/24 History subcutaneous pen lancets 33 gauge (TRUEplus Lancets) #100 ea 10/22/23 01/20/24 History omeprazole 20 mg capsule,delayed 20 mg PO BID 10/22/23 03/04/24 History release pen needle, diabetic 32 gauge x #1,200 ea 10/22/23 01/20/24 History (Pentips) rosuvastatin 40 mg tablet 40 mg PO BEDTIME 10/22/23 03/04/24 History metoprolol tartrate 25 mg tablet 25 mg PO BID 02/02/24 03/04/24 History Allergies Allergy/AdvReac Type Severity Reaction Status Date / Time No Known Allergies Allergy Verified 03/03/24 20:05 [No Known Allergies*] Physical Exam Vital signs: Vital Signs Temp 98.5 F 03/04/24 09:47 Pulse 102 H 03/04/24 09:47 Resp 18 03/04/24 09:47 BP 166/79 H 03/04/24 09:47 Pulse Ox 98 03/04/24 09:47 O2 Del Method Room Air 03/04/24 09:47 Intake & Output 03/03/24 03/04/24 03/04/24 18:59 06:59 18:59 Intake Total 550 / 550 Balance 550 / 550 Intake: Intake, IV Amount 550 / 550 0.9 % Sodium Chloride 500 ml @ 500 / 500 500 mls/hr IV .Q1H [facility] Rx#: [id number] cefTRIAXone sodium 1 gm In 0.9 50 / 50 % Sodium Chloride 50 ml @ 100 mls/hr IV Q24H [facility] Rx#: [id number] Other: Number of Unmeasured Voids 1 Weight 72.575 kg Weight 72.575 kg - Constitutional Present: no acute distress - Routine HEENT Exam Head: Present: atraumatic, normal inspection ENT: Present: mucous membranes moist - Routine Neck Exam Present: supple - Routine Respiratory Exam Present: decreased breath sounds - Routine Cardiovascular Exam Cardiovascular: Present: RRR - Routine Abdominal Exam Present: diminished bowel sounds (dialysis fistula left upper arm) Hem/Onc Consult Result - Labs CBC & Chem 7: 03/04/24 05:44 03/04/24 05:44 Labs: Short CBC 03/04/24 Range/Units 05:44 WBC 6.6 (4.8-10.8) X10*3/uL Hgb 8.4 L (12.0-16.0) g/dl Hct 25.4 L (37.0-47.0) % Plt Count 140 L (160-400) X10*3/uL BMP 03/04/24 05:44 Sodium 135 Potassium 4.6 Chloride 107 Carbon Dioxide 13 L BUN 95 H Creatinine 9.94 H* Calcium 8.1 L Urine 03/03/24 Range/Units 21:01 Urine Color Yellow Urine Appearance Turbid Urine pH 6.0 (5.0-9.0) Ur Specific [place] 1.015 (1.005-1.025) Urine Protein 300 (3+) H (Neg-Trace) mg/dL Urine Glucose (UA) 100 H (Negative) mg/dL Assessment and Plan Patient Active problem list reviewed?: Yes (1) Mass of bladder Status: Acute Assessment and plan: She has a renal tumor and a bladder mass. Recomment we notifyrenal of her presence and order urine cytology. Urology will need to be involved. We need tissue diagnoses. - Time Spent With Patient Time Spent with Patient (in minutes): 30
--- NOTE | 2024-03-04 12:42 | HO.PM.IMPN ---
Subjective Subjective Date of Service: 03/04/24 Interval History: seen and examined daughter bedside updates given pt with no specific complaints at this time Review of Systems Negative except HPI/interval history. Physical Exam Vital Signs: Vital Signs: Last Vital Signs Temp 98.5 F 03/04/24 09:47 Pulse 102 H 03/04/24 09:47 Resp 18 03/04/24 09:47 BP 166/79 H 03/04/24 09:47 Pulse Ox 98 03/04/24 09:47 O2 Del Method Room Air 03/04/24 09:47 BMI result Body Mass Index 30.2 Const: Other: General - no acute distress, appears comfortable Cardiovascular - regular rate and rhythm, S1-S2 Lungs - normal respiratory effort, clear to auscultation bilaterally, no wheezing Abdomen - soft, nontender, no rebound or guarding Extremities - no edema bilaterally Neuro - awake and alert, no focal deficits Objective Data Active Medications Acetaminophen (Acetaminophen 325 Mg Tablet) 650 mg PO Q6H PRN PRN Reason: Pain, Mild (Pain Scale 1-3) Glucose (Glucose Gel 15 Gm Gel..Gram.) 15 gm PO Q15M PRN; Protocol PRN Reason: per Hypoglycemia Standing Ord. Heparin Sodium (Porcine) (Heparin Sodium,Porcine 5,000 Unit/Ml Vial) 5,000 unit SUBCUT Q12H [facility] Last Admin: 03/04/24 08:41 Dose: 5,000 unit Documented By: JANE Ceftriaxone Sodium 1 gm/ (Sodium Chloride) 50 mls @ 100 mls/hr IV Q24H [facility] Last Infusion: 03/04/24 02:10 Dose: Infused Documented By: SHEKHAR Dextrose (D10) 250 mls @ 750 mls/hr IV Q15M PRN; Protocol PRN Reason: per Hypoglycemia Standing Ord. Insulin Glargine (Insulin Glargine,Hum.Rec.Anlog 100 Unit/Ml 10 Ml Vial) 15 unit SUBCUT BEDTIME [facility] Last Admin: 03/03/24 23:22 Dose: 15 unit Documented By: SHEKHAR Insulin Human Lispro (Insulin Lispro 100 Unit/Ml 3 Ml Vial) 0 unit SUBCUT QIDACHS [facility]; Protocol Last Admin: 03/04/24 07:32 Dose: Not Given Documented By: JANE Non-Admin Reason: No Insulin Coverage Melatonin (Melatonin 3 Mg Tablet) 6 mg PO BEDTIME PRN PRN Reason: Insomnia Ondansetron HCl (Ondansetron Hcl 4 Mg/2 Ml Vial) 4 mg IVPUSH Q8H PRN PRN Reason: Nausea and Vomiting Sodium Bicarbonate (Sodium Bicarbonate 650 Mg Tablet) 1,300 mg PO TID [facility] Last Admin: 03/04/24 08:41 Dose: 1,300 mg Documented By: JANE Sodium Chloride (0.9 % Sodium Chloride Flush 3 Ml Syringe) 3 ml IVFLUSH QSHIFT [facility] Last Admin: 03/04/24 08:41 Dose: 3 ml Documented By: JANE Labs 03/04/24 05:44 03/04/24 05:44 Labs: Laboratory Results - last 24 hr 03/03/24 03/03/24 03/03/24 21:01 22:19 22:59 MCV MCH MCHC RDW Plt Count MPV Immature Gran % (Auto) Neut % (Auto) Lymph % (Auto) [place] % (Auto) Eos % (Auto) Baso % (Auto) Lymph # (Auto) [place] # (Auto) Eos # (Auto) Baso # (Auto) Abs Immat Gran (auto) Absolute Neuts (auto) Absolute Nucleated RBC Nucleated RBC % (auto) Anion Gap Estim Creat Clear Calc Estimated GFR POC Glucose 101 Random Glucose Lactic Acid 1.1 Calcium Urine Color Yellow Urine Appearance Turbid Urine pH 6.0 Ur Specific [place] 1.015 Urine Protein 300 (3+) H Urine Glucose (UA) 100 H Urine Ketones Negative Urine Blood Moderate (2+) H Urine Nitrite Negative Ur Leukocyte Esterase Large (3+) H Urine RBC >20 H Urine WBC >50 H Ur Squamous Epith Cells 6-10 Urine Bacteria 4+ Hyaline Casts 3-5 Influenza Type A (PCR) NEGATIVE Influenza Type B (PCR) NEGATIVE RSV RNA Qual (PCR) NEGATIVE SARS-CoV-2 RNA (RT-PCR) NEGATIVE 03/04/24 03/04/24 03/04/24 05:44 07:25 12:04 MCV 86.7 MCH 28.7 MCHC 33.1 RDW 14.0 Plt Count 140 L MPV 11.1 Immature Gran % (Auto) 0.3 Neut % (Auto) 61.8 Lymph % (Auto) 19.7 L [place] % (Auto) 14.7 H Eos % (Auto) 2.9 Baso % (Auto) 0.6 Lymph # (Auto) 1.3 [place] # (Auto) 1.0 Eos # (Auto) 0.2 Baso # (Auto) 0.0 Abs Immat Gran (auto) 0.02 Absolute Neuts (auto) 4.1 Absolute Nucleated RBC 0.000 Nucleated RBC % (auto) 0.0 Anion Gap 20 Estim Creat Clear Calc 5.4 Estimated GFR 4 POC Glucose 145 H 168 H Random Glucose 144 H Lactic Acid Calcium 8.1 L Urine Color Urine Appearance Urine pH Ur Specific [place] Urine Protein Urine Glucose (UA) Urine Ketones Urine Blood Urine Nitrite Ur Leukocyte Esterase Urine RBC Urine WBC Ur Squamous Epith Cells Urine Bacteria Hyaline Casts Influenza Type A (PCR) Influenza Type B (PCR) RSV RNA Qual (PCR) SARS-CoV-2 RNA (RT-PCR) Assessment and Plan (1) Bladder mass: Status: Acute Plan 58 yo F with a PMH of CKD5 who presented to [facility] with fatigue and inability to sleep. Work up revealed worsening renal function and imaging studies concerning for metastatic cancer 1. LORIN on CKD5 with metabolic acidosis appears to be progressing to ESRD baseline SCr appears to be in the 5-6 range; presented with 10.23; no significant change this AM to 9.9 s/p IVF in the ED d/w Dr. Beatty -- will start PO bicarb for her acidosis and avoid IVF for now given her CHF history (last echo in 2021 showing EF 22%) -- will check [facility] records for a more recent one, otherwise will repeat here will need access at some point - d/w Dr. Beatty, will plan for permacath on Wednesday 2. Bladder and possible renal mass concerning for metastatic cancer urology consult pending oncology appreicated -- will send for cytology 3. Possible UTI rocepin f/u cultures 4. DM basal / bolus 5. HTN continue baseline meds 6. CMP echo as above cotinue baseline meds Full Code DVT pptx Requires continued hospitalization for LORIN on CKD5, with high likely baez for requiring dialysis this admission; also needs evaluation for bladder/renal mass Quality Stroke Does the patient have a stroke diagnosis?: No VTE Prior VTE?: No VTE Risk Level:: Medical - moderate - high VTE Device Contraindication: Treatment Not Indicated VTE Drug Contraindication: N/A - Med Ordered
[2024-03-04] MEDS: Insulin Lispro 100 UNIT/ML 3 ML VIAL SUBCUT ×2 (12:57→17:31)
[2024-03-04] MEDS: Metoprolol Tartrate 25 MG TABLET PO ×2 (14:42→21:34)
[2024-03-04] MEDS: calcitrioL 0.25 MCG CAPSULE PO (14:42)
[2024-03-04] MEDS: Cholecalciferol (Vitamin D3) 25 MCG TABLET 50 MCG PO (14:43)
[2024-03-04 15:23] LABS: Urine Cytology See Pathology rpt
[2024-03-04 17:19] LABS: Glucose, Whole Blood 187 mg/dL (60-115)
[2024-03-04] MEDS: Omeprazole 20 MG CAPSULE.DR PO (17:31)
[2024-03-04] MEDS: Acetaminophen 325 MG TABLET 650 MG PO (17:47)
--- NOTE | 2024-03-04 20:24 | PC.NURSE ---
Pt ca&ox3 Pt resting in bed comfortably, no signs of distress. Pts family at bedside. Plan of care ongoing.
[2024-03-04 20:58] LABS: Glucose, Whole Blood 158 mg/dL (60-115)
[2024-03-04] MEDS: Insulin Glargine,Hum.rec.anlog 100 UNIT/ML 10 ML VIAL 15 UNIT SUBCUT (21:34)
[2024-03-04] MEDS: Amitriptyline HCl 50 MG TABLET PO (21:34)
[2024-03-04] MEDS: Atorvastatin Calcium 40 MG TABLET PO (21:35)
--- NOTE | 2024-03-04 22:00 | PC.NURSE ---
patient arrived to unit with daughter. hungarian speaking only, patient daughter does speak taiwanese. educated on the importance of using an in hospital concrete pipe making machine operator. patient denies pain. AV fistual to left forearm has positive bruit and thrill. medicated per MAR. patient able to walk independently with steady gait, no equipment. pt blood sugar covered per mar. all needs met, call hope within reach. safety and comfort maintained. daughter staying with patient overnight, TYESHA Zuniga char house supervisor aware.
[2024-03-05 03:45] VITALS: BP 144/74; PULSE 87; RESP 18; TEMP 36.9; O2SAT 95
[2024-03-05] MEDS: Omeprazole 20 MG CAPSULE.DR PO ×2 (06:14→17:09)
[2024-03-05 06:39] LABS: Hematocrit 23.3 % (37.0-47.0); Hemoglobin 7.9 g/dl (12.0-16.0); Mean Corpuscular HGB Conc 33.9 g/dl (31.0-35.0); Mean Corpuscular Hemoglobin 28.8 pg (27.0-33.0); Mean Platelet Volume 10.7 fL (9.4-12.3); Platelet Count 140 X10*3/uL (160-400); Red Blood Count 2.74 X10*6/uL (4.20-5.50); Red Cell Distribution Width 14.1 % (11.0-16.0); White Blood Count 5.7 X10*3/uL (4.8-10.8)
[2024-03-05 07:12] LABS: Anion Gap 16 (12-20); Blood Urea Nitrogen 96 mg/dL (9-16); Calcium 7.9 mg/dL (8.4-10.2); Carbon Dioxide 17 mmol/L (22-29); Chloride 108 mmol/L (96-108); Creatinine Clr Calc Pharmacy 5.7; Estimated Glomerular Filt Rate 4; Glucose Random 85 mg/dL (60-115); Potassium 4.2 mmol/L (3.3-5.1); Sodium 137 mmol/L (135-145)
[2024-03-05 07:25] VITALS: BP 139/74; PULSE 86; RESP 17; TEMP 36.3; O2SAT 96
[2024-03-05 07:35] LABS: Glucose, Whole Blood 86 mg/dL (60-115)
--- NOTE | 2024-03-05 08:27 | MHC.CM.PN ---
Patient from home. Previously living alone, but her daughter is now staying w/ her to assist. Ambulates w/ walker. Has a SURFACER OPERATOR M-F 3hrs/day. Has a shower chair. PCP Anne Talamantes DO Pt completed HCP naming [facility] 1) son Jerson Max [phone], 2) daughter Tamra Max [phone] DP: Goal is home w/ family support & resump of SURFACER OPERATOR svcs. Family to transport. CM will continue to follow.
[2024-03-05] MEDS: calcitrioL 0.25 MCG CAPSULE PO (09:00)
[2024-03-05] MEDS: Sodium Bicarbonate 650 MG TABLET 1300 MG PO ×3 (09:00→21:29)
[2024-03-05 09:01] VITALS: BP 139/74; PULSE 86
[2024-03-05] MEDS: 0.9 % Sodium Chloride Flush 3 ML SYRINGE IVFLUSH ×3 (09:01→22:39)
[2024-03-05] MEDS: Cholecalciferol (Vitamin D3) 25 MCG TABLET 50 MCG PO (09:01)
[2024-03-05] MEDS: Ferrous Sulfate 324 MG TABLET.DR PO (09:01)
[2024-03-05] MEDS: Metoprolol Tartrate 25 MG TABLET PO ×2 (09:01→21:29)
[2024-03-05 11:09] LABS: Glucose, Whole Blood 191 mg/dL (60-115)
--- NOTE | 2024-03-05 11:39 | P.PNIM_ITS ---
Subjective Subjective Date of Service: 03/05/24 Interval History: seen and examined daughter and sister bedside updates given patient without any new complaints at this time Review of Systems Negative except HPI/interval history. Physical Exam 2 Vital Signs: Vital Signs: Last Vital Signs Temp 97.4 F 03/05/24 07:25 Pulse 86 03/05/24 09:01 Resp 17 03/05/24 07:25 BP 139/74 03/05/24 09:01 Pulse Ox 96 03/05/24 07:25 O2 Del Method Room Air 03/05/24 07:25 BMI result Body Mass Index 30.2 Const: Other: General - no acute distress, appears comfortable Cardiovascular - regular rate and rhythm, S1-S2 Lungs - normal respiratory effort, clear to auscultation bilaterally, no wheezing Abdomen - soft, nontender, no rebound or guarding Extremities - no edema bilaterally Neuro - awake and alert, no focal deficits Objective Data Active Medications Acetaminophen (Acetaminophen 325 Mg Tablet) 650 mg PO Q6H PRN PRN Reason: Pain, Mild (Pain Scale 1-3) Last Admin: 03/04/24 17:47 Dose: 650 mg Documented By: ADDISON Amitriptyline HCl (Amitriptyline Hcl 50 Mg Tablet) 50 mg PO BEDTIME [facility] Last Admin: 03/04/24 21:34 Dose: 50 mg Documented By: ANGELINA Atorvastatin Calcium (Atorvastatin Calcium 40 Mg Tablet) 40 mg PO BEDTIME [facility] Last Admin: 03/04/24 21:35 Dose: 40 mg Documented By: ANGELINA Calcitriol (Calcitriol 0.25 Mcg Capsule) 0.25 mcg PO DAILY [facility] Last Admin: 03/05/24 09:00 Dose: 0.25 mcg Documented By: SHABBIR Ferrous Sulfate (Ferrous Sulfate 324 Mg Tablet.Dr) 324 mg PO DAILY [facility] Last Admin: 03/05/24 09:01 Dose: 324 mg Documented By: SHABBIR Glucose (Glucose Gel 15 Gm Gel..Gram.) 15 gm PO Q15M PRN; Protocol PRN Reason: per Hypoglycemia Standing Ord. Heparin Sodium (Porcine) (Heparin Sodium,Porcine 5,000 Unit/Ml Vial) 5,000 unit SUBCUT Q12H [facility] Last Admin: 03/04/24 21:34 Dose: 5,000 unit Documented By: ANGELINA Ceftriaxone Sodium 1 gm/ (Sodium Chloride) 50 mls @ 100 mls/hr IV Q24H [facility] Last Infusion: 03/04/24 22:05 Dose: Infused Documented By: ANGELINA Dextrose (D10) 250 mls @ 750 mls/hr IV Q15M PRN; Protocol PRN Reason: per Hypoglycemia Standing Ord. Insulin Glargine (Insulin Glargine,Hum.Rec.Anlog 100 Unit/Ml 10 Ml Vial) 15 unit SUBCUT BEDTIME [facility] Last Admin: 03/04/24 21:34 Dose: 15 unit Documented By: ANGELINA Insulin Human Lispro (Insulin Lispro 100 Unit/Ml 3 Ml Vial) 0 unit SUBCUT QIDACHS [facility]; Protocol Last Admin: 03/05/24 07:37 Dose: Not Given Documented By: SHABBIR Non-Admin Reason: No Insulin Coverage Melatonin (Melatonin 3 Mg Tablet) 6 mg PO BEDTIME PRN PRN Reason: Insomnia Metoprolol Tartrate (Metoprolol Tartrate 25 Mg Tablet) 25 mg PO BID [facility]; Protocol Last Admin: 03/05/24 09:01 Dose: 25 mg Documented By: SHABBIR Omeprazole (Omeprazole 20 Mg Capsule.) 20 mg PO BID@0630,1630 [facility] Last Admin: 03/05/24 06:14 Dose: 20 mg Documented By: KATE Ondansetron HCl (Ondansetron Hcl 4 Mg/2 Ml Vial) 4 mg IVPUSH Q8H PRN PRN Reason: Nausea and Vomiting Sodium Bicarbonate (Sodium Bicarbonate 650 Mg Tablet) 1,300 mg PO TID [facility] Last Admin: 03/05/24 09:00 Dose: 1,300 mg Documented By: SHABBIR Sodium Chloride (0.9 % Sodium Chloride Flush 3 Ml Syringe) 3 ml IVFLUSH QSHIFT [facility] Last Admin: 03/05/24 09:01 Dose: 3 ml Documented By: SHABBIR Vitamin D (Cholecalciferol (Vitamin D3) 25 Mcg Tablet) 50 mcg PO DAILY [facility] Last Admin: 03/05/24 09:01 Dose: 50 mcg Documented By: SHABBIR Labs 03/05/24 06:07 03/05/24 06:07 Labs: Laboratory Results - last 24 hr 03/04/24 03/04/24 03/04/24 12:04 17:16 20:52 MCV MCH MCHC RDW Plt Count MPV Absolute Nucleated RBC Nucleated RBC % (auto) Anion Gap Estim Creat Clear Calc Estimated GFR POC Glucose 168 H 187 H 158 H Random Glucose Calcium 03/05/24 03/05/24 03/05/24 06:07 07:31 10:54 MCV 85.0 MCH 28.8 MCHC 33.9 RDW 14.1 Plt Count 140 L MPV 10.7 Absolute Nucleated RBC 0.000 Nucleated RBC % (auto) 0.0 Anion Gap 16 Estim Creat Clear Calc 5.7 Estimated GFR 4 POC Glucose 86 191 H Random Glucose 85 Calcium 7.9 L Microbiology Microbiology Results: Microbiology 03/03/24 Unknown Urine Culture - Preliminary Urine clean catch - Urine stuart top Culture in progress. 03/03/24 22:47 Blood Culture - Preliminary Blood - Venous No growth after 24 hours. 03/03/24 22:19 Blood Culture - Preliminary Blood - Venous No growth after 24 hours. Assessment and Plan (1) Acute kidney injury superimposed on chronic kidney disease: Status: Acute (2) Mass of bladder: Status: Acute Plan 58 yo F with a PMH of CKD5 who presented to [facility] ED with fatigue and inability to sleep. Work up revealed worsening renal function and imaging studies concerning for metastatic cancer 1. LORIN on CKD5 with metabolic acidosis appears to be progressing to ESRD baseline SCr appears to be in the 5-6 range; presented with 10.23; SCr remains around 9-10 range s/p IVF in the ED PO bicarb nephrology on board -- permacath for tomorrow 2. Bladder and possible renal mass concerning for metastatic cancer urology consult pending oncology appreciated -- will send for cytology 3. Possible UTI rocepin f/u cultures 4. DM basal / bolus 5. HTN continue baseline meds 6. CMP echo as above cotinue baseline meds Full Code DVT pptx Requires continued hospitalization for LORIN on CKD5, with high likely baez for requiring dialysis this admission; also needs evaluation for bladder/renal mass Quality Stroke Does the patient have a stroke diagnosis?: No VTE Prior VTE?: No VTE Risk Level:: Medical - moderate - high VTE Device Contraindication: Treatment Not Indicated VTE Drug Contraindication: N/A - Med Ordered
[2024-03-05] MEDS: Insulin Lispro 100 UNIT/ML 3 ML VIAL SUBCUT ×3 (11:46→21:31)
[2024-03-05] MEDS: Heparin Sodium,Porcine 5,000 UNIT/ML VIAL 5000 UNIT SUBCUT ×2 (11:46→22:39)
[2024-03-05 15:54] VITALS: BP 136/65; PULSE 85; RESP 13; TEMP 36.3; O2SAT 100
[2024-03-05 16:37] LABS: Glucose, Whole Blood 155 mg/dL (60-115)
[2024-03-05 19:58] VITALS: BP 135/63; PULSE 90; RESP 18; TEMP 36.3; O2SAT 100
[2024-03-05 20:09] LABS: Glucose, Whole Blood 174 mg/dL (60-115)
[2024-03-05 21:29] VITALS: BP 132/60; PULSE 90
[2024-03-05] MEDS: Atorvastatin Calcium 40 MG TABLET PO (21:29)
[2024-03-05] MEDS: Amitriptyline HCl 50 MG TABLET PO (21:29)
[2024-03-05] MEDS: Insulin Glargine,Hum.rec.anlog 100 UNIT/ML 10 ML VIAL 15 UNIT SUBCUT (21:32)
[2024-03-05] MEDS: cefTRIAXone sodium 1 GM in 0.9 % Sodium Chloride 50 ML IV (22:39)
[2024-03-06] VITALS (13 sets, daily range): BP systolic 112–174; BP diastolic 55–83; PULSE 83–98; RESP 14–18; TEMP 36.1–36.5; O2SAT 94–100
[2024-03-06] MEDS: Omeprazole 20 MG CAPSULE.DR PO (05:42)
[2024-03-06 06:15] LABS: Hematocrit 24.2 % (37.0-47.0); Hemoglobin 8.2 g/dl (12.0-16.0); Mean Corpuscular HGB Conc 33.9 g/dl (31.0-35.0); Mean Corpuscular Hemoglobin 29.2 pg (27.0-33.0); Mean Corpuscular Volume 86.1 fL (80.0-98.0); Mean Platelet Volume 10.9 fL (9.4-12.3); Platelet Count 144 X10*3/uL (160-400); Red Blood Count 2.81 X10*6/uL (4.20-5.50); Red Cell Distribution Width 14.2 % (11.0-16.0); White Blood Count 5.9 X10*3/uL (4.8-10.8)
[2024-03-06 06:51] LABS: Anion Gap 14 (12-20); Blood Urea Nitrogen 93 mg/dL (9-16); Calcium 7.8 mg/dL (8.4-10.2); Carbon Dioxide 20 mmol/L (22-29); Chloride 106 mmol/L (96-108); Potassium 4.3 mmol/L (3.3-5.1); Sodium 136 mmol/L (135-145)
[2024-03-06 07:15] LABS: Glucose, Whole Blood 52 mg/dL (60-115)
--- NOTE | 2024-03-06 07:31 | P.CNUR_ITS ---
History of Present Illness Consult details Consult date: 03/06/24 Requesting physician: Danni Schulz Narrative: 58-year-old Polish speaking female, history is obtained with the help of her daughter who is present at the time of my evaluation. Past medical history CKD stage 5, cardiomyopathy with EF 20%, anemia due to CKD, secondary hyperparathyroidism, mood disorder, gastroesophageal reflux disease, insulin- dependent diabetes mellitus who presented to the emergency department for evaluation of abnormal labs and complaints of fatigue, nausea that has been ongoing for 3 weeks. Also has been having dizziness and generalized malaise. She further complains of right flank pain that has been ongoing for a while. The patient also states she has noted blood in the urine a few times over the last year, she denies pain with urination. The patient denies cigarette use but states that her smoked heavily and she was exposed to the secondhand smoke. CT scan imaging was done on admission noting irregularity in the right renal pelvis and question of a bladder mass along the right mabel trigone. The patient is having a PermCath today and may get dialysis at some point. If she is medically stable further evaluation with cystoscopy bladder biopsy and right retrograde discussed with the patient. Review of Systems 2 Review of Systems: 10 point review of systems negative othe r than stated [facility] Past Medical History Medical History Pacemaker History of adenomatous polyp of colon Cardiomyopathy Chronic kidney disease, stage 4 (severe) Hypertension Type 2 diabetes mellitus with diabetic nephropathy Social History Social History Household Members: Children Housing: Unknown / Unable to assess Do you presently have visiting nurse or other home services: No Alcohol intake: never Comment: counts correct Patient Tobacco Use Status: Never used Tobacco service: No Meds Allergies Allergy/AdvReac Type Severity Reaction Status Date / Time No Known Allergies Allergy Verified 03/03/24 20:05 [No Known Allergies*] Active Medications: Current Medications Acetaminophen (Acetaminophen 325 Mg Tablet) 650 mg PO Q6H PRN PRN Reason: Pain, Mild (Pain Scale 1-3) Last Admin: 03/04/24 17:47 Dose: 650 mg Amitriptyline HCl (Amitriptyline Hcl 50 Mg Tablet) 50 mg PO BEDTIME [facility] Last Admin: 03/05/24 21:29 Dose: 50 mg Atorvastatin Calcium (Atorvastatin Calcium 40 Mg Tablet) 40 mg PO BEDTIME COUNTS INCLUDE 234 BEDS AT [facility] Last Admin: 03/05/24 21:29 Dose: 40 mg Calcitriol (Calcitriol 0.25 Mcg Capsule) 0.25 mcg PO DAILY COUNTS INCLUDE 234 BEDS AT THE [facility] Last Admin: 03/05/24 09:00 Dose: 0.25 mcg Ferrous Sulfate (Ferrous Sulfate 324 Mg Tablet.) 324 mg PO DAILY COUNTS INCLUDE 234 BEDS AT THE [facility] Last Admin: 03/05/24 09:01 Dose: 324 mg Glucose (Glucose Gel 15 Gm Gel..Gram.) 15 gm PO Q15M PRN; Protocol PRN Reason: per Hypoglycemia Standing Ord. Heparin Sodium (Porcine) (Heparin Sodium,Porcine 5,000 Unit/Ml Vial) 5,000 unit SUBCUT Q12H COUNTS INCLUDE 234 BEDS AT THE [facility] Last Admin: 03/05/24 22:39 Dose: 5,000 unit Ceftriaxone Sodium 1 gm/ (Sodium Chloride) 50 mls @ 100 mls/hr IV Q24H COUNTS INCLUDE 234 BEDS AT THE [facility] Last Infusion: 03/05/24 23:10 Dose: Infused Dextrose (D10) 250 mls @ 750 mls/hr IV Q15M PRN; Protocol PRN Reason: per Hypoglycemia Standing Ord. Insulin Glargine (Insulin Glargine,Hum.Rec.Anlog 100 Unit/Ml 10 Ml Vial) 15 unit SUBCUT BEDTIME COUNTS INCLUDE 234 BEDS AT THE [facility] Last Admin: 03/05/24 21:32 Dose: 15 unit Insulin Human Lispro (Insulin Lispro 100 Unit/Ml 3 Ml Vial) 0 unit SUBCUT QIDACHS COUNTS INCLUDE 234 BEDS AT THE [facility]; Protocol Last Admin: 03/05/24 21:31 Dose: 2 unit Melatonin (Melatonin 3 Mg Tablet) 6 mg PO BEDTIME PRN PRN Reason: Insomnia Metoprolol Tartrate (Metoprolol Tartrate 25 Mg Tablet) 25 mg PO BID COUNTS INCLUDE 234 BEDS AT THE [facility]; Protocol Last Admin: 03/05/24 21:29 Dose: 25 mg Omeprazole (Omeprazole 20 Mg Capsule.) 20 mg PO BID@0630,1630 COUNTS INCLUDE 234 BEDS AT THE [facility] Last Admin: 03/06/24 05:42 Dose: 20 mg Ondansetron HCl (Ondansetron Hcl 4 Mg/2 Ml Vial) 4 mg IVPUSH Q8H PRN PRN Reason: Nausea and Vomiting Sodium Bicarbonate (Sodium Bicarbonate 650 Mg Tablet) 1,300 mg PO TID COUNTS INCLUDE 234 BEDS AT THE [facility] Last Admin: 03/05/24 21:29 Dose: 1,300 mg Sodium Chloride (0.9 % Sodium Chloride Flush 3 Ml Syringe) 3 ml IVFLUSH QSHIFT COUNTS INCLUDE 234 BEDS AT THE [facility] Last Admin: 03/05/24 22:39 Dose: 3 ml Vitamin D (Cholecalciferol (Vitamin D3) 25 Mcg Tablet) 50 mcg PO DAILY COUNTS INCLUDE 234 BEDS AT THE [facility] Last Admin: 03/05/24 09:01 Dose: 50 mcg Home Medications ?Medication ?Instructions ?Recorded ?Confirmed ?Last Taken ?Type amitriptyline 50 mg tablet 50 mg PO BEDTIME 10/22/23 03/04/24 03/03/24 History aspirin 81 mg tablet,delayed 81 mg PO QAM 10/22/23 03/04/24 03/03/24 History release cholecalciferol (vitamin D3) 50 50 mcg PO QAM 10/22/23 03/04/24 03/03/24 History mcg (2,000 unit) capsule (Vitamin D3) dulaglutide 1.5 mg/0.5 mL 1.5 mg subcut GORDON 10/22/23 03/04/24 02/20/24 History subcutaneous pen injector (Trulicity) ferrous sulfate 325 mg (65 mg 325 mg PO QPM 10/22/23 03/04/24 03/03/24 History iron) tablet (FeroSul) insulin glargine 100 unit/mL (3 25 unit subcut BEDTIME 10/22/23 03/04/24 03/03/24 History mL) subcutaneous pen (Lantus Solostar U-100 Insulin) insulin lispro 100 unit/mL 8 - 18 unit subcut TID 10/22/23 03/04/24 03/03/24 History subcutaneous pen lancets 33 gauge (TRUEplus Lancets) #100 ea 10/22/23 01/20/24 Unknown History omeprazole 20 mg capsule,delayed 20 mg PO BID 10/22/23 03/04/24 03/03/24 History release pen needle, diabetic 32 gauge x #1,200 ea 10/22/23 01/20/24 Unknown History (Pentips) rosuvastatin 40 mg tablet 40 mg PO BEDTIME 10/22/23 03/04/24 03/03/24 History metoprolol tartrate 25 mg tablet 25 mg PO BID 02/02/24 03/04/24 03/03/24 History Physical Exam 2 Vital Signs: Vital Signs: Last Vital Signs Temp 97.5 F 03/06/24 07:09 Pulse 83 03/06/24 07:09 Resp 16 03/06/24 07:09 BP 132/59 L 03/06/24 07:09 Pulse Ox 97 03/06/24 07:09 O2 Del Method Room Air 03/06/24 07:09 BMI result Body Mass Index 30.2 Const: General: cooperative, healthy appearing and no acute distress O rientation/consciousness: patient oriented x3 HEENT: Head: Yes normal to inspection, Yes normocephalic and Yes atraumatic Eyes: Conjunctivae: conjunctivae normal Neck: Neck: Yes normal visual inspection and Yes trachea midline Chest: Chest palpation & inspection: normal inspection of the chest Resp: Effort & Inspection: normal respiratory effort Cardio: Rate: regular rate GI: Inspection: Yes normal to inspection Palpation (GI): Soft to palpation Neuro: General: patient oriented x3 Psych: Appearance: grossly normal Results Labs 03/06/24 05:25 03/06/24 05:25 Labs: Abnormal lab results 03/05/24 03/05/24 03/05/24 Range/Units 10:54 16:31 20:05 RBC (4.20-5.50) X10*6/uL Hgb (12.0-16.0) g/dl Hct (37.0-47.0) % Plt Count (160-400) X10*3/uL Carbon Dioxide (22-29) mmol/L BUN (9-16) mg/dL POC Glucose 191 H 155 H 174 H (60-115) mg/dL Calcium (8.4-10.2) mg/dL 03/06/24 03/06/24 Range/Units 05:25 07:08 RBC 2.81 L (4.20-5.50) X10*6/uL Hgb 8.2 L (12.0-16.0) g/dl Hct 24.2 L (37.0-47.0) % Plt Count 144 L (160-400) X10*3/uL Carbon Dioxide 20 L (22-29) mmol/L BUN 93 H (9-16) mg/dL POC Glucose 52 L* (60-115) mg/dL Calcium 7.8 L (8.4-10.2) mg/dL Short CBC 03/06/24 Range/Units 05:25 WBC 5.9 (4.8-10.8) X10*3/uL Hgb 8.2 L (12.0-16.0) g/dl Hct 24.2 L (37.0-47.0) % Plt Count 144 L (160-400) X10*3/uL BMP 03/06/24 05:25 Sodium 136 Potassium 4.3 Chloride 106 Carbon Dioxide 20 L BUN 93 H Calcium 7.8 L Urine 03/03/24 Range/Units 21:01 Urine Color Yellow Urine Appearance Turbid Urine pH 6.0 (5.0-9.0) Ur Specific [place]oun 1.015 (1.005-1.025) Urine Protein 300 (3+) H (Neg-Trace) mg/dL Urine Glucose (UA) 100 H (Negative) mg/dL All other labs normal. Imaging Abdomen CT scan report/results: report reviewed and image reviewed CT scan - pelvis: report reviewed and image reviewed Additional studies: Date of Service: 03/03/24 EXAMINATION: CT ABDOMEN AND PELVIS WITHOUT CONTRAST CLINICAL INFORMATION: Right flank pain. COMPARISON: CT abdomen/pelvis 10/12/2018. TECHNIQUE: Multidetector volumetric imaging was performed from the superior aspect of the liver through the pubic symphysis. Sagittal and coronal reformatted images were obtained on the technologist's workstation. This CT examination was performed using dose optimization techniques as appropriate, variously including the following: *Automated exposure control *Adjustment of mA and/or kV according to patient size (this includes techniques or standardized protocols for targeted exams where dose is matched to indication/reason for exam; i.e. extremities or head) *Use of iterative reconstruction technique DLP: 542 mGy-cm FINDINGS: The lack of intravenous contrast limits evaluation of the solid visceral organs including the liver, spleen, pancreas, and kidneys. LUNG BASES: No focal consolidation or pleural effusion. Partially imaged cardiac pacer/AICD leads and coronary artery calcifications. LIVER, GALLBLADDER, AND BILIARY TREE: The liver is normal in size, shape, and attenuation. No focal hepatic lesion or biliary ductal dilatation is present. The gallbladder is unremarkable with no evidence of radiopaque gallstones, gallbladder wall thickening, or obvious pericholecystic inflammatory changes. PANCREAS: Unremarkable. SPLEEN: Unremarkable. ADRENAL GLANDS: Unremarkable. KIDNEYS AND URETERS: Limited noncontrast examination. New intermediate density masslike abnormality filling the upper calices/collecting system of the right kidney (image 27 series 2). No hydronephrosis. No significant perinephric fat stranding. BLADDER: Abnormal asymmetric wall thickening along the right wall for example measuring 4.4 x 2.2 cm on axial image 76 series 2. The masslike abnormality abuts the insertion site of the right ureter (image 75 series 2), however there is no significant hydroureter. Intraluminal air is nonspecific. GASTROINTESTINAL TRACT: No evidence of bowel obstruction. Normal appendix. Mild colonic diverticulosis with no significant pericolonic inflammatory changes. ABDOMINAL WALL: No significant hernia is appreciated. LYMPH NODES: New retroperitoneal yessica masses/lymphadenopathy, for instance a 2.9 x 3.8 cm mass posterior to the IVC adjacent to the right kidney (image 24 series 2), and a conglomerate of masses in the right periaortic region at the level of the kidneys measuring 2.2 x 2.7 cm (image 29 series 2). VASCULAR: Atherosclerotic disease. Normal caliber abdominal aorta. PELVIC VISCERA: Borderline endometrial thickening measuring 0.8 to 0.9 cm. OSSEOUS STRUCTURES: New moderate to severe compression deformity of the L2 vertebral body with more than 50% of anterior vertebral body height loss. Degenerative change of the spine. You focal lucency along the superior aspect of the T12 vertebral body, most likely representing a Schmorl node. Stable increased sclerosis of the SI joints. IMPRESSION: Findings are highly suspicious for malignancy including a large urinary bladder mass and possibly additional mass in the upper collecting system of the right kidney, as well as metastatic retroperitoneal lymphadenopathy. This examination is not appropriate for initial staging as no IV contrast was administered. Recommend uro-oncology evaluation. Borderline thickening of the endometrium, recommend further evaluation with pelvic ultrasound. Compared to 10/12/2018, new moderate to severe compression deformity of the L2 vertebral body. Correlate with point tenderness. Assessment and Plan (1) Mass of bladder: Status: Acute (2) Abnormal CT scan, kidney: Status: Acute Plan Pt will need cysto bladder biopsy, retrograde, for further evaluation once medically stable. Procedures Date of Service Date of Service: 03/06/24
[2024-03-06 07:34] LABS: Creatinine Clr Calc Pharmacy 5.9; Estimated Glomerular Filt Rate 4; Glucose Random 55 mg/dL (60-115)
[2024-03-06 07:39] LABS: Glucose, Whole Blood 55 mg/dL (60-115)
[2024-03-06] MEDS: Dextrose 10 % 250 ML 750 ML IV (07:43)
[2024-03-06] MEDS: 0.9 % Sodium Chloride Flush 3 ML SYRINGE IVFLUSH ×3 (07:46→20:47)
[2024-03-06 08:17] LABS: Glucose, Whole Blood 134 mg/dL (60-115)
--- NOTE | 2024-03-06 09:45 | HO.PM.IMPN ---
Subjective Subjective Date of Service: 03/06/24 Interval History: seen and examined daughter and sister bedside updates given patient without any new complaints at this time Review of Systems Negative except HPI/interval history. Physical Exam Vital Signs: Vital Signs: Last Vital Signs Temp 97.5 F 03/06/24 07:09 Pulse 83 03/06/24 07:09 Resp 16 03/06/24 07:09 BP 132/59 L 03/06/24 07:09 Pulse Ox 97 03/06/24 07:09 O2 Del Method Room Air 03/06/24 07:09 BMI result Body Mass Index 30.2 Appearing in no acute distress lung sounds are clear to auscultation heart regular rate rhythm, clear S1, S2 positive bowel sounds, abdomen is soft, nontender neuro patient is alert x3, no focal deficits Fistula left forearm Objective Data Active Medications Acetaminophen (Acetaminophen 325 Mg Tablet) 650 mg PO Q6H PRN PRN Reason: Pain, Mild (Pain Scale 1-3) Last Admin: 03/04/24 17:47 Dose: 650 mg Documented By: ADDISON Amitriptyline HCl (Amitriptyline Hcl 50 Mg Tablet) 50 mg PO BEDTIME [facility] Last Admin: 03/05/24 21:29 Dose: 50 mg Documented By: GARTH Atorvastatin Calcium (Atorvastatin Calcium 40 Mg Tablet) 40 mg PO BEDTIME [facility] Last Admin: 03/05/24 21:29 Dose: 40 mg Documented By: GARTH Calcitriol (Calcitriol 0.25 Mcg Capsule) 0.25 mcg PO DAILY [facility] Last Admin: 03/05/24 09:00 Dose: 0.25 mcg Documented By: SHABBIR Ferrous Sulfate (Ferrous Sulfate 324 Mg Tablet.Dr) 324 mg PO DAILY [facility] Last Admin: 03/05/24 09:01 Dose: 324 mg Documented By: SHABBIR Glucose (Glucose Gel 15 Gm Gel..Gram.) 15 gm PO Q15M PRN; Protocol PRN Reason: per Hypoglycemia Standing Ord. Heparin Sodium (Porcine) (Heparin Sodium,Porcine 5,000 Unit/Ml Vial) 5,000 unit SUBCUT Q12H [facility] Last Admin: 03/05/24 22:39 Dose: 5,000 unit Documented By: GARTH Ceftriaxone Sodium 1 gm/ (Sodium Chloride) 50 mls @ 100 mls/hr IV Q24H [facility] Last Infusion: 03/05/24 23:10 Dose: Infused Documented By: GARTH Dextrose (D10) 250 mls @ 750 mls/hr IV Q15M PRN; Protocol PRN Reason: per Hypoglycemia Standing Ord. Last Infusion: 03/06/24 08:03 Dose: Infused Documented By: HARSH Insulin Glargine (Insulin Glargine,Hum.Rec.Anlog 100 Unit/Ml 10 Ml Vial) 15 unit SUBCUT BEDTIME [facility] Last Admin: 03/05/24 21:32 Dose: 15 unit Documented By: GARTH Insulin Human Lispro (Insulin Lispro 100 Unit/Ml 3 Ml Vial) 0 unit SUBCUT QIDACHS [facility]; Protocol Last Admin: 03/06/24 08:40 Dose: Not Given Documented By: HARSH Non-Admin Reason: No Insulin Coverage Melatonin (Melatonin 3 Mg Tablet) 6 mg PO BEDTIME PRN PRN Reason: Insomnia Metoprolol Tartrate (Metoprolol Tartrate 25 Mg Tablet) 25 mg PO BID [facility]; Protocol Last Admin: 03/05/24 21:29 Dose: 25 mg Documented By: GARTH Omeprazole (Omeprazole 20 Mg Capsule.Dr) 20 mg PO BID@0630,1630 [facility] Last Admin: 03/06/24 05:42 Dose: 20 mg Documented By: GARTH Ondansetron HCl (Ondansetron Hcl 4 Mg/2 Ml Vial) 4 mg IVPUSH Q8H PRN PRN Reason: Nausea and Vomiting Sodium Bicarbonate (Sodium Bicarbonate 650 Mg Tablet) 1,300 mg PO TID [facility] Last Admin: 03/05/24 21:29 Dose: 1,300 mg Documented By: GARTH Sodium Chloride (0.9 % Sodium Chloride Flush 3 Ml Syringe) 3 ml IVFLUSH QSHIFT [facility] Last Admin: 03/06/24 07:46 Dose: 3 ml Documented By: HARSH Vitamin D (Cholecalciferol (Vitamin D3) 25 Mcg Tablet) 50 mcg PO DAILY [facility] Last Admin: 03/05/24 09:01 Dose: 50 mcg Documented By: SHABBIR Labs 03/06/24 05:25 03/06/24 05:25 Labs: Laboratory Results - last 24 hr 03/05/24 03/05/24 03/05/24 10:54 16:31 20:05 MCV MCH MCHC RDW Plt Count MPV Absolute Nucleated RBC Nucleated RBC % (auto) Anion Gap Estim Creat Clear Calc Estimated GFR POC Glucose 191 H 155 H 174 H Random Glucose Calcium 03/06/24 03/06/24 03/06/24 05:25 07:08 07:35 MCV 86.1 MCH 29.2 MCHC 33.9 RDW 14.2 Plt Count 144 L MPV 10.9 Absolute Nucleated RBC 0.000 Nucleated RBC % (auto) 0.0 Anion Gap 14 Estim Creat Clear Calc 5.9 Estimated GFR 4 POC Glucose 52 L* 55 L* Random Glucose 55 L* Calcium 7.8 L 03/06/24 08:12 MCV MCH MCHC RDW Plt Count MPV Absolute Nucleated RBC Nucleated RBC % (auto) Anion Gap Estim Creat Clear Calc Estimated GFR POC Glucose 134 H Random Glucose Calcium Microbiology Microbiology Results: Microbiology 03/03/24 22:47 Blood Culture - Preliminary Blood - Venous No growth after 48 hours. 03/03/24 22:19 Blood Culture - Preliminary Blood - Venous No growth after 48 hours. 03/03/24 Unknown Urine Culture - Preliminary Urine clean catch - Urine stuart top Culture in progress. Assessment and Plan (1) Acute kidney injury superimposed on chronic kidney disease: Status: Acute (2) Mass of bladder: Status: Acute Plan 58 yo F with a PMH of CKD5 who presented to [facility] [place] [facility] with fatigue and inability to sleep. Work up revealed worsening renal function and imaging studies concerning for metastatic cancer LORIN on CKD5 with metabolic acidosis appears to be progressing to ESRD baseline SCr appears to be in the 5-6 range; presented with 10.23; SCr remains around 9-10 range PO bicarb nephrology on board>permacath tomorrow and dialysis initiation Bladder and possible renal mass concerning for metastatic cancer urology consult> plan for biopsy oncology consult pending Possible UTI rocepin f/u cultures DM 2 basal / bolus HTN continue baseline meds HFrEF continue baseline meds Full Code Attending Dr. Jurado DVT pptx heparin Requires continued hospitalization for LORIN on CKD5, with high likely baez for requiring dialysis this admission; also needs evaluation for bladder/renal mass Quality Stroke Does the patient have a stroke diagnosis?: No VTE Prior VTE?: No VTE Risk Level:: Medical - moderate - high VTE Device Contraindication: Treatment Not Indicated VTE Drug Contraindication: N/A - Med Ordered
[2024-03-06 11:28] LABS: Glucose, Whole Blood 75 mg/dL (60-115)
--- NOTE | 2024-03-06 11:35 | MHC.CM.PN ---
Per MD rounds no dc today. Patient is planned for a permacath today. A Biopsy of the bladder is pending. DP home with dtrs assistance. Resumption of [employer] services. Patients dtr will provide transportation home.
[2024-03-06] MEDS: Metoprolol Tartrate 25 MG TABLET PO ×2 (11:59→20:45)
[2024-03-06] MEDS: Cholecalciferol (Vitamin D3) 25 MCG TABLET 50 MCG PO (11:59)
[2024-03-06] MEDS: calcitrioL 0.25 MCG CAPSULE PO (11:59)
[2024-03-06] MEDS: Sodium Bicarbonate 650 MG TABLET 1300 MG PO ×3 (12:00→20:45)
[2024-03-06] MEDS: Ferrous Sulfate 324 MG TABLET.DR PO (12:00)
[2024-03-06] MEDS: Glucose Gel 15 GM GEL..GRAM. PO (12:40)
[2024-03-06 12:41] LABS: Glucose, Whole Blood 69 mg/dL (60-115)
--- NOTE | 2024-03-06 13:08 | PM.CNNEP ---
History of Present Illness Reason for Consult Consult date: 03/07/24 Chief Complaint Chief complaint: Abnormal labs History of Present Illness Narrative: 58-year-old female with pertinent history of CKD stage 5, cardiomyopathy with EF 20%, anemia due to CKD, secondary hyperparathyroidism, mood disorder, gastroesophageal reflux disease, insulin-dependent diabetes mellitus who presents to the emergency department for evaluation of abnormal labs. Patient states has been having fatigue, nausea that has been ongoing for 3 weeks. Also has been having dizziness and generalized malaise. She further complains of right flank pain that has been ongoing for a while. Also has change in odor and color of urine with urinary urgency. Patient underwent blood work outpatient and found that her creatinine is elevated and was sent to the ER. No fever, chills, chest discomfort, palpitations, shortness of breath, changes in bowel habits. She has advanced renal failure approaching end stage renal disease. She has an AV fistula in the left arm which is not made sure Review of Systems Constitutional: Denies fever(s) and Denies weight loss Cardiovascular: Denies chest pain Respiratory: Denies cough and Denies hemoptysis Gastrointestinal: Denies abdominal pain, Denies diarrhea and Denies nausea Musculoskeletal: Denies back pain Denies focal weakness PMFSH Past Medical History Medical History Pacemaker History of adenomatous polyp of colon Cardiomyopathy Chronic kidney disease, stage 4 (severe) Hypertension Type 2 diabetes mellitus with diabetic nephropathy Social History Social History Household Members: Children Housing: Unknown / Unable to assess Do you presently have visiting nurse or other home services: No Alcohol intake: never Comment: counts correct Patient Tobacco Use Status: Never used Tobacco Smoked in Last 30 Days: No Use of substances other than those prescribed or required for medical reasons: No Currently Displaying Signs/Symptoms of Drug Intoxication Withdrawal: No Have you been hit, kicked, punched, or otherwise hurt by someone within the past year? If so, by whom?: No Do you feel safe in your current relationship?: No Is there a partner from a previous relationship who is making you feel unsafe now?: No Are you made to feel afraid or neglected: No Advance Directives: No Advance Directives Information Provided: No Do you have a plan to hurt others: No Plan Recently lost weight without trying: No Eating poorly because of decreased appetite: No Nutrition Risks: No Nutritional Risk Patient : No : No Poor oral hygiene: No service: No Meds Allergies Allergy/AdvReac Type Severity Reaction Status Date / Time No Known Allergies Allergy Verified 03/03/24 20:05 [No Known Allergies*] Active Medications: Current Medications Acetaminophen (Acetaminophen 325 Mg Tablet) 650 mg PO Q6H PRN PRN Reason: Pain, Mild (Pain Scale 1-3) Last Admin: 03/04/24 17:47 Dose: 650 mg Amitriptyline HCl (Amitriptyline Hcl 50 Mg Tablet) 50 mg PO BEDTIME [facility] Last Admin: 03/05/24 21:29 Dose: 50 mg Atorvastatin Calcium (Atorvastatin Calcium 40 Mg Tablet) 40 mg PO BEDTIME [facility] Last Admin: 03/05/24 21:29 Dose: 40 mg Calcitriol (Calcitriol 0.25 Mcg Capsule) 0.25 mcg PO DAILY [facility] Last Admin: 03/06/24 11:59 Dose: 0.25 mcg Ferrous Sulfate (Ferrous Sulfate 324 Mg Tablet.Dr) 324 mg PO DAILY [facility] Last Admin: 03/06/24 12:00 Dose: 324 mg Glucose (Glucose Gel 15 Gm Gel..Gram.) 15 gm PO Q15M PRN; Protocol PRN Reason: per Hypoglycemia Standing Ord. Last Admin: 03/06/24 12:40 Dose: 15 gm Heparin Sodium (Porcine) (Heparin Sodium,Porcine 5,000 Unit/Ml Vial) 5,000 unit SUBCUT Q12H [facility] Last Admin: 03/06/24 12:02 Dose: Not Given Ceftriaxone Sodium 1 gm/ (Sodium Chloride) 50 mls @ 100 mls/hr IV Q24H [facility] Last Infusion: 03/05/24 23:10 Dose: Infused Dextrose (D10) 250 mls @ 750 mls/hr IV Q15M PRN; Protocol PRN Reason: per Hypoglycemia Standing Ord. Last Infusion: 03/06/24 08:03 Dose: Infused Insulin Glargine (Insulin Glargine,Hum.Rec.Anlog 100 Unit/Ml 10 Ml Vial) 15 unit SUBCUT BEDTIME [facility] Last Admin: 03/05/24 21:32 Dose: 15 unit Insulin Human Lispro (Insulin Lispro 100 Unit/Ml 3 Ml Vial) 0 unit SUBCUT QIDACHS [facility]; Protocol Last Admin: 03/06/24 12:19 Dose: Not Given Melatonin (Melatonin 3 Mg Tablet) 6 mg PO BEDTIME PRN PRN Reason: Insomnia Metoprolol Tartrate (Metoprolol Tartrate 25 Mg Tablet) 25 mg PO BID [facility]; Protocol Last Admin: 03/06/24 11:59 Dose: 25 mg Omeprazole (Omeprazole 20 Mg Capsule.Dr) 20 mg PO BID@0630,1630 [facility] Last Admin: 03/06/24 05:42 Dose: 20 mg Ondansetron HCl (Ondansetron Hcl 4 Mg/2 Ml Vial) 4 mg IVPUSH Q8H PRN PRN Reason: Nausea and Vomiting Sodium Bicarbonate (Sodium Bicarbonate 650 Mg Tablet) 1,300 mg PO TID [facility] Last Admin: 03/06/24 12:00 Dose: 1,300 mg Sodium Chloride (0.9 % Sodium Chloride Flush 3 Ml Syringe) 3 ml IVFLUSH QSHIFT [facility] Last Admin: 03/06/24 07:46 Dose: 3 ml Vitamin D (Cholecalciferol (Vitamin D3) 25 Mcg Tablet) 50 mcg PO DAILY [facility] Last Admin: 03/06/24 11:59 Dose: 50 mcg Home Medications ?Medication ?Instructions ?Recorded ?Confirmed ?Last Taken ?Type amitriptyline 50 mg tablet 50 mg PO BEDTIME 10/22/23 03/04/24 03/03/24 History aspirin 81 mg tablet,delayed 81 mg PO QAM 10/22/23 03/04/24 03/03/24 History release cholecalciferol (vitamin D3) 50 50 mcg PO QAM 10/22/23 03/04/24 03/03/24 History mcg (2,000 unit) capsule (Vitamin D3) dulaglutide 1.5 mg/0.5 mL 1.5 mg subcut [place] 10/22/23 03/04/24 02/20/24 History subcutaneous pen injector (Trulicity) ferrous sulfate 325 mg (65 mg 325 mg PO QPM 10/22/23 03/04/24 03/03/24 History iron) tablet (FeroSul) insulin glargine 100 unit/mL (3 25 unit subcut BEDTIME 10/22/23 03/04/24 03/03/24 History mL) subcutaneous pen (Lantus Solostar U-100 Insulin) insulin lispro 100 unit/mL 8 - 18 unit subcut TID 10/22/23 03/04/24 03/03/24 History subcutaneous pen lancets 33 gauge (TRUEplus Lancets) #100 ea 10/22/23 01/20/24 Unknown History omeprazole 20 mg capsule,delayed 20 mg PO BID 10/22/23 03/04/24 03/03/24 History release pen needle, diabetic 32 gauge x #1,200 ea 10/22/23 01/20/24 Unknown History (Pentips) rosuvastatin 40 mg tablet 40 mg PO BEDTIME 10/22/23 03/04/24 03/03/24 History metoprolol tartrate 25 mg tablet 25 mg PO BID 02/02/24 03/04/24 03/03/24 History Physical Exam Vital Signs: Last Vital Signs Temp 97.6 F 03/06/24 11:33 Pulse 98 03/06/24 11:33 Resp 18 03/06/24 11:33 BP 147/79 H 03/06/24 11:33 Pulse Ox 99 03/06/24 11:33 O2 Del Method Room Air 03/06/24 11:33 BMI result Body Mass Index 30.2 Const General: comfortable and no acute distress Orientation/consciousness: patient oriented x3 HEENT Head: Yes normocephalic Mouth: Normal oral and palatal mucosa present Eyes EOM: EOMs intact bilaterally Neck Neck: Yes supple Resp Auscultation: clear to auscultation bilaterally Cardio Jugular venous distension: no JVD Rate: regular rate GI Palpation (GI): Soft to palpation Auscultation: normal bowel sounds General: Yes no CVA tenderness Back/Spine/Pelvis Back: no CVA tenderness Skin General skin exam: no rashes or lesions noted Neuro General: patient oriented x3 and moves all extremities Extrem Other: AVF Results Lab Results 03/06/24 05:25 03/07/24 08:34 Lab results: Chemistry 03/04/24 03/05/24 03/06/24 05:44 06:07 05:25 Sodium 135 137 136 Potassium 4.6 4.2 4.3 Carbon Dioxide 13 L 17 L 20 L BUN 95 H 96 H 93 H Creatinine 9.94 H* 9.46 H* 9.20 H* Calcium 8.1 L 7.9 L 7.8 L Hematology 03/04/24 03/05/24 03/06/24 05:44 06:07 05:25 WBC 6.6 5.7 5.9 Hgb 8.4 L 7.9 L 8.2 L Plt Count 140 L 140 L 144 L Urinalysis 03/03/24 21:01 Urine Color Yellow Urine Appearance Turbid Urine pH 6.0 Ur Specific [place] 1.015 Urine Protein 300 (3+) H Urine Glucose (UA) 100 H Urine Ketones Negative Urine Blood Moderate (2+) H Urine Nitrite Negative Ur Leukocyte Esterase Large (3+) H Urine RBC >20 H Urine WBC >50 H Ur Squamous Epith Cells 6-10 Hyaline Casts 3-5 Assessment and Plan (1) CKD stage 5 due to type 2 diabetes mellitus: Status: Acute (2) Mass of bladder: Status: Acute Plan 58-year-old woman with advanced renal failure approaching end stage renal disease. The AV fistula is not mature yet. She will need a PermCath to initiate dialysis. She due for PermCath today and once the catheter is inserted I will arrange for dialysis. Bladder mass suspicious for malignancy. Seen by Urology. She will be requiring cystoscopy and biopsy. Procedures Date of Service Date of Service: 03/07/24
[2024-03-06 13:21] LABS: Glucose, Whole Blood 99 mg/dL (60-115)
[2024-03-06 16:13] LABS: Glucose, Whole Blood 76 mg/dL (60-115)
--- NOTE | 2024-03-06 17:51 | P.CONAN_ITS ---
FORMERLY [facility], LATER [facility] Active Problems Active Problems: All Active Problems (Updated 03/04/24 @ 04:19 by Estuardo Kenyon MD) Abnormal CT scan, kidney (Acute) Mass of bladder (Acute) Bladder mass (Acute) Acute UTI (Acute) Uremia (Acute) Acute kidney injury superimposed on chronic kidney disease (Acute) CKD stage 5 due to type 2 diabetes mellitus (Acute) Anemia in chronic kidney disease (Acute) Diabetic nephropathy (Acute) Secondary hyperparathyroidism (of renal origin) (Acute) History of adenomatous polyp of colon (Acute) Cardiomyopathy (Acute) Hypertension (Acute) Chronic kidney disease, stage 4 (severe) (Acute) Past Medical History Medical History Pacemaker History of adenomatous polyp of colon Cardiomyopathy Chronic kidney disease, stage 4 (severe) Hypertension Type 2 diabetes mellitus with diabetic nephropathy Family History Family history of problems with anesthesia: No Surgical History History of Problems with Anesthesia: No Social History Social History Household Members: Children Housing: Unknown / Unable to assess Do you presently have visiting nurse or other home services: No Alcohol intake: never Comment: counts correct Patient Tobacco Use Status: Never used Tobacco service: No Meds Allergies Allergy/AdvReac Type Severity Reaction Status Date / Time No Known Allergies Allergy Verified 03/03/24 20:05 [No Known Allergies*] Active Medications: Current Medications Acetaminophen (Acetaminophen 325 Mg Tablet) 650 mg PO Q6H PRN PRN Reason: Pain, Mild (Pain Scale 1-3) Last Admin: 03/04/24 17:47 Dose: 650 mg Amitriptyline HCl (Amitriptyline Hcl 50 Mg Tablet) 50 mg PO BEDTIME [facility] Last Admin: 03/05/24 21:29 Dose: 50 mg Atorvastatin Calcium (Atorvastatin Calcium 40 Mg Tablet) 40 mg PO BEDTIME [facility] Last Admin: 03/05/24 21:29 Dose: 40 mg Calcitriol (Calcitriol 0.25 Mcg Capsule) 0.25 mcg PO DAILY [facility] Last Admin: 03/06/24 11:59 Dose: 0.25 mcg Ferrous Sulfate (Ferrous Sulfate 324 Mg Tablet.Dr) 324 mg PO DAILY [facility] Last Admin: 03/06/24 12:00 Dose: 324 mg Glucose (Glucose Gel 15 Gm Gel..Gram.) 15 gm PO Q15M PRN; Protocol PRN Reason: per Hypoglycemia Standing Ord. Last Admin: 03/06/24 12:40 Dose: 15 gm Heparin Sodium (Porcine) (Heparin Sodium,Porcine 5,000 Unit/Ml Vial) 5,000 unit SUBCUT Q12H [facility] Last Admin: 03/06/24 12:02 Dose: Not Given Ceftriaxone Sodium 1 gm/ (Sodium Chloride) 50 mls @ 100 mls/hr IV Q24H [facility] Last Infusion: 03/05/24 23:10 Dose: Infused Dextrose (D10) 250 mls @ 750 mls/hr IV Q15M PRN; Protocol PRN Reason: per Hypoglycemia Standing Ord. Last Infusion: 03/06/24 08:03 Dose: Infused Insulin Glargine (Insulin Glargine,Hum.Rec.Anlog 100 Unit/Ml 10 Ml Vial) 15 unit SUBCUT BEDTIME [facility] Last Admin: 03/05/24 21:32 Dose: 15 unit Insulin Human Lispro (Insulin Lispro 100 Unit/Ml 3 Ml Vial) 0 unit SUBCUT QIDACHS [facility]; Protocol Last Admin: 03/06/24 17:11 Dose: Not Given Melatonin (Melatonin 3 Mg Tablet) 6 mg PO BEDTIME PRN PRN Reason: Insomnia Metoprolol Tartrate (Metoprolol Tartrate 25 Mg Tablet) 25 mg PO BID [facility]; Protocol Last Admin: 03/06/24 11:59 Dose: 25 mg Omeprazole (Omeprazole 20 Mg Capsule.Dr) 20 mg PO BID@0630,1630 [facility] Last Admin: 03/06/24 17:11 Dose: Not Given Ondansetron HCl (Ondansetron Hcl 4 Mg/2 Ml Vial) 4 mg IVPUSH Q8H PRN PRN Reason: Nausea and Vomiting Sodium Bicarbonate (Sodium Bicarbonate 650 Mg Tablet) 1,300 mg PO TID [facility] Last Admin: 03/06/24 14:54 Dose: 1,300 mg Sodium Chloride (0.9 % Sodium Chloride Flush 3 Ml Syringe) 3 ml IVFLUSH QSHIFT [facility] Last Admin: 03/06/24 14:55 Dose: 3 ml Vitamin D (Cholecalciferol (Vitamin D3) 25 Mcg Tablet) 50 mcg PO DAILY [facility] Last Admin: 03/06/24 11:59 Dose: 50 mcg Home Medications ?Medication ?Instructions ?Recorded ?Confirmed ?Last Taken ?Type amitriptyline 50 mg tablet 50 mg PO BEDTIME 10/22/23 03/04/24 03/03/24 History aspirin 81 mg tablet,delayed 81 mg PO QAM 10/22/23 03/04/24 03/03/24 History release cholecalciferol (vitamin D3) 50 50 mcg PO QAM 10/22/23 03/04/24 03/03/24 History mcg (2,000 unit) capsule (Vitamin D3) dulaglutide 1.5 mg/0.5 mL 1.5 mg subcut GORDON 10/22/23 03/04/24 02/20/24 History subcutaneous pen injector (Trulicity) ferrous sulfate 325 mg (65 mg 325 mg PO QPM 10/22/23 03/04/24 03/03/24 History iron) tablet (FeroSul) insulin glargine 100 unit/mL (3 25 unit subcut BEDTIME 10/22/23 03/04/24 03/03/24 History mL) subcutaneous pen (Lantus Solostar U-100 Insulin) insulin lispro 100 unit/mL 8 - 18 unit subcut TID 10/22/23 03/04/24 03/03/24 History subcutaneous pen lancets 33 gauge (TRUEplus Lancets) #100 ea 10/22/23 01/20/24 Unknown History omeprazole 20 mg capsule,delayed 20 mg PO BID 10/22/23 03/04/24 03/03/24 History release pen needle, diabetic 32 gauge x #1,200 ea 10/22/23 01/20/24 Unknown History (Pentips) rosuvastatin 40 mg tablet 40 mg PO BEDTIME 10/22/23 03/04/24 03/03/24 History metoprolol tartrate 25 mg tablet 25 mg PO BID 02/02/24 03/04/24 03/03/24 History Exam Height,Weight and Vital Signs: Height 5 ft 1 in Weight 72.6 kg Last Vital Signs Temp 97.6 F 03/06/24 17:07 Pulse 94 03/06/24 17:07 Resp 18 03/06/24 17:07 BP 134/76 03/06/24 17:07 Pulse Ox 99 03/06/24 17:07 O2 Del Method Room Air 03/06/24 17:07 Pertinent Lab Results Pertinent Lab Results: Laboratory Tests 03/03/24 03/03/24 03/03/24 21:01 22:19 22:59 WBC RBC Hgb Hct MCV MCH MCHC RDW Plt Count MPV Immature Gran % (Auto) Neut % (Auto) Lymph % (Auto) Mitchell % (Auto) Eos % (Auto) Baso % (Auto) Lymph # (Auto) Mitchell # (Auto) Eos # (Auto) Baso # (Auto) Abs Immat Gran (auto) Absolute Neuts (auto) Absolute Nucleated RBC Nucleated RBC % (auto) Sodium Potassium Chloride Carbon Dioxide Anion Gap BUN Creatinine Estim Creat Clear Calc Estimated GFR POC Glucose 101 Random Glucose Lactic Acid 1.1 Calcium Urine Color Yellow Urine Appearance Turbid Urine pH 6.0 Ur Specific Anson 1.015 Urine Protein 300 (3+) H Urine Glucose (UA) 100 H Urine Ketones Negative Urine Blood Moderate (2+) H Urine Nitrite Negative Ur Leukocyte Esterase Large (3+) H Urine RBC >20 H Urine WBC >50 H Ur Squamous Epith Cells 6-10 Urine Bacteria 4+ Hyaline Casts 3-5 Influenza Type A (PCR) NEGATIVE Influenza Type B (PCR) NEGATIVE RSV RNA Qual (PCR) NEGATIVE SARS-CoV-2 RNA (RT-PCR) NEGATIVE 03/04/24 03/04/24 03/04/24 05:44 07:25 12:04 WBC 6.6 RBC 2.93 L Hgb 8.4 L Hct 25.4 L MCV 86.7 MCH 28.7 MCHC 33.1 RDW 14.0 Plt Count 140 L MPV 11.1 Immature Gran % (Auto) 0.3 Neut % (Auto) 61.8 Lymph % (Auto) 19.7 L Mitchell % (Auto) 14.7 H Eos % (Auto) 2.9 Baso % (Auto) 0.6 Lymph # (Auto) 1.3 Mitchell # (Auto) 1.0 Eos # (Auto) 0.2 Baso # (Auto) 0.0 Abs Immat Gran (auto) 0.02 Absolute Neuts (auto) 4.1 Absolute Nucleated RBC 0.000 Nucleated RBC % (auto) 0.0 Sodium 135 Potassium 4.6 Chloride 107 Carbon Dioxide 13 L Anion Gap 20 BUN 95 H Creatinine 9.94 H* Estim Creat Clear Calc 5.4 Estimated GFR 4 POC Glucose 145 H 168 H Random Glucose 144 H Lactic Acid Calcium 8.1 L Urine Color Urine Appearance Urine pH Ur Specific Anson Urine Protein Urine Glucose (UA) Urine Ketones Urine Blood Urine Nitrite Ur Leukocyte Esterase Urine RBC Urine WBC Ur Squamous Epith Cells Urine Bacteria Hyaline Casts Influenza Type A (PCR) Influenza Type B (PCR) RSV RNA Qual (PCR) SARS-CoV-2 RNA (RT-PCR) 03/04/24 03/04/24 03/05/24 17:16 20:52 06:07 WBC 5.7 RBC 2.74 L Hgb 7.9 L Hct 23.3 L MCV 85.0 MCH 28.8 MCHC 33.9 RDW 14.1 Plt Count 140 L MPV 10.7 Immature Gran % (Auto) Neut % (Auto) Lymph % (Auto) Mitchell % (Auto) Eos % (Auto) Baso % (Auto) Lymph # (Auto) Mitchell # (Auto) Eos # (Auto) Baso # (Auto) Abs Immat Gran (auto) Absolute Neuts (auto) Absolute Nucleated RBC 0.000 Nucleated RBC % (auto) 0.0 Sodium 137 Potassium 4.2 Chloride 108 Carbon Dioxide 17 L Anion Gap 16 BUN 96 H Creatinine 9.46 H* Estim Creat Clear Calc 5.7 Estimated GFR 4 POC Glucose 187 H 158 H Random Glucose 85 Lactic Acid Calcium 7.9 L Urine Color Urine Appearance Urine pH Ur Specific Anson Urine Protein Urine Glucose (UA) Urine Ketones Urine Blood Urine Nitrite Ur Leukocyte Esterase Urine RBC Urine WBC Ur Squamous Epith Cells Urine Bacteria Hyaline Casts Influenza Type A (PCR) Influenza Type B (PCR) RSV RNA Qual (PCR) SARS-CoV-2 RNA (RT-PCR) 03/05/24 03/05/24 03/05/24 07:31 10:54 16:31 WBC RBC Hgb Hct MCV MCH MCHC RDW Plt Count MPV Immature Gran % (Auto) Neut % (Auto) Lymph % (Auto) Mitchell % (Auto) Eos % (Auto) Baso % (Auto) Lymph # (Auto) Mitchell # (Auto) Eos # (Auto) Baso # (Auto) Abs Immat Gran (auto) Absolute Neuts (auto) Absolute Nucleated RBC Nucleated RBC % (auto) Sodium Potassium Chloride Carbon Dioxide Anion Gap BUN Creatinine Estim Creat Clear Calc Estimated GFR POC Glucose 86 191 H 155 H Random Glucose Lactic Acid Calcium Urine Color Urine Appearance Urine pH Ur Specific Anson Urine Protein Urine Glucose (UA) Urine Ketones Urine Blood Urine Nitrite Ur Leukocyte Esterase Urine RBC Urine WBC Ur Squamous Epith Cells Urine Bacteria Hyaline Casts Influenza Type A (PCR) Influenza Type B (PCR) RSV RNA Qual (PCR) SARS-CoV-2 RNA (RT-PCR) 03/05/24 03/06/24 03/06/24 20:05 05:25 07:08 WBC 5.9 RBC 2.81 L Hgb 8.2 L Hct 24.2 L MCV 86.1 MCH 29.2 MCHC 33.9 RDW 14.2 Plt Count 144 L MPV 10.9 Immature Gran % (Auto) Neut % (Auto) Lymph % (Auto) Mitchell % (Auto) Eos % (Auto) Baso % (Auto) Lymph # (Auto) Mitchell # (Auto) Eos # (Auto) Baso # (Auto) Abs Immat Gran (auto) Absolute Neuts (auto) Absolute Nucleated RBC 0.000 Nucleated RBC % (auto) 0.0 Sodium 136 Potassium 4.3 Chloride 106 Carbon Dioxide 20 L Anion Gap 14 BUN 93 H Creatinine 9.20 H* Estim Creat Clear Calc 5.9 Estimated GFR 4 POC Glucose 174 H 52 L* Random Glucose 55 L* Lactic Acid Calcium 7.8 L Urine Color Urine Appearance Urine pH Ur Specific Anson Urine Protein Urine Glucose (UA) Urine Ketones Urine Blood Urine Nitrite Ur Leukocyte Esterase Urine RBC Urine WBC Ur Squamous Epith Cells Urine Bacteria Hyaline Casts Influenza Type A (PCR) Influenza Type B (PCR) RSV RNA Qual (PCR) SARS-CoV-2 RNA (RT-PCR) 03/06/24 03/06/24 03/06/24 07:35 08:12 11:21 WBC RBC Hgb Hct MCV MCH MCHC RDW Plt Count MPV Immature Gran % (Auto) Neut % (Auto) Lymph % (Auto) Mitchell % (Auto) Eos % (Auto) Baso % (Auto) Lymph # (Auto) Mitchell # (Auto) Eos # (Auto) Baso # (Auto) Abs Immat Gran (auto) Absolute Neuts (auto) Absolute Nucleated RBC Nucleated RBC % (auto) Sodium Potassium Chloride Carbon Dioxide Anion Gap BUN Creatinine Estim Creat Clear Calc Estimated GFR POC Glucose 55 L* 134 H 75 Random Glucose Lactic Acid Calcium Urine Color Urine Appearance Urine pH Ur Specific Anson Urine Protein Urine Glucose (UA) Urine Ketones Urine Blood Urine Nitrite Ur Leukocyte Esterase Urine RBC Urine WBC Ur Squamous Epith Cells Urine Bacteria Hyaline Casts Influenza Type A (PCR) Influenza Type B (PCR) RSV RNA Qual (PCR) SARS-CoV-2 RNA (RT-PCR) 03/06/24 03/06/24 03/06/24 12:36 13:16 16:09 WBC RBC Hgb Hct MCV MCH MCHC RDW Plt Count MPV Immature Gran % (Auto) Neut % (Auto) Lymph % (Auto) Mitchell % (Auto) Eos % (Auto) Baso % (Auto) Lymph # (Auto) Mitchell # (Auto) Eos # (Auto) Baso # (Auto) Abs Immat Gran (auto) Absolute Neuts (auto) Absolute Nucleated RBC Nucleated RBC % (auto) Sodium Potassium Chloride Carbon Dioxide Anion Gap BUN Creatinine Estim Creat Clear Calc Estimated GFR POC Glucose 69 99 76 Random Glucose Lactic Acid Calcium Urine Color Urine Appearance Urine pH Ur Specific Anson Urine Protein Urine Glucose (UA) Urine Ketones Urine Blood Urine Nitrite Ur Leukocyte Esterase Urine RBC Urine WBC Ur Squamous Epith Cells Urine Bacteria Hyaline Casts Influenza Type A (PCR) Influenza Type B (PCR) RSV RNA Qual (PCR) SARS-CoV-2 RNA (RT-PCR) Airway Mallampati Class: II TM Dist: >3cm Neck ROM: Full Assessment and Plan Assessment Anesthesia Assessment: Anesthesia Plan Discussed and Chart Reviewed Final Anesthetic Review Family History of Problems with Anesthesia: No History of Problems with Anesthesia: No NPO: Yes ASA Class: III Final Preanesthetic Review: No Changes in Pt Med Stat, Meds/Allgs Chart Reviewed, Consent Obtained/Reviewed and Anes Risks/Benef Reviewed Patient Risk: Intermediate Procedure Risk: Low Anesthetic Plan Anesthetic Plan: GA Disposition: Standard PACU
--- NOTE | 2024-03-06 17:53 | MHC.SHP ---
Pre-Procedural Eval Section A - 24 Hr Update-Section A only Date of Service: 03/06/24 The patient is an INPATIENT: Yes Changes since office visit: No Cold of Flu in the past 2 weeks, No New Medical Problems, No Changes in Medication and No Patient answered all questions The patient has been examined within 24 hours of the surgical procedure. The History & Physical has been completed within 30 days and I have reviewed it.: Yes Section B - Complete if H&P > 30 days Chief Complaint: Abnormal labs Details of Present Illness: Cystoscopy, bladder biopsy, right retrograde Allergies: Allergies Allergy/AdvReac Type Severity Reaction Status Date / Time No Known Allergies Allergy Verified 03/03/24 20:05 [No Known Allergies*] Plan Diagnosis/Plan: Unchanged (as above) I have reviewed the history and physical and performed a pertinent physical examination on my patient. No changes have occurred unless specified. Time Spent With Patient Time: Total time managing care of this patient today ____ minutes.
--- NOTE | 2024-03-06 19:06 | P.OP_ITS ---
Operative Note Operative Note Date of Service: 03/06/24 Narrative: PreOperative Diagnosis: bladder mass, question right ureteric mass Post Operative Diagnosis: bladder cancer - Tumor size 10 cm, location right lateral sidewall Procedure: 1.) TURBT 2) right retrograde Surgeon: Dr Jung Maxwell Anesthesia: general Indications for procedure: Outpatient hematuria. Inpatient high creatinine. Ultrasound with question renal pelvic mass and bladder mass. Procedure: After informed consent was verified the patient was brought to the operating cate m and placed in a supine position. Anesthesia was administered per protocol. The patient was placed in a modified dorsal lithotomy position and prepped and draped in a sterile fashion. Safety pause time-out was performed. Antibiotics were confirmed. Twenty-two Hungarian cystoscope was inserted. Extensive right sidewall bladder mass covering approximately half the right sidewall was seen. This was contiguous. Right ureteric orifice was seen. A guidewire was placed in the right ureteric orifice. The right ureteric orifice proximally 3-5 cm away from the right sidewall bladder mass. A 26 Hungarian continuous flow resectoscope was inserted per urethra. The visual obturator was used in order to minimize potential for urethral damage. The bladder mass was engaged. TURBT was performed. This took approximately 30 minutes. Was extensive and extensive fulguration on the right sidewall. Bladder was examined and for the cancer was not seen. The resection was slightly oozy I than typical. Higher fulguration and cutting was used. At completion the procedure noted platelet count 145. The resectoscope was removed. The cystoscope was placed. A retrograde examination performed of the right side. No filling defects seen in the right renal pelvis. No hematuria seen on efflux. At the completion of the procedure the bladder was irrigated. The cystoscope was removed. A [address] Shah catheter was inserted into the bladder. 10 cc was placed in the balloon. Gentle irrigation and CBI started. The patient tolerated the procedure well. They were extubated in the operating room and transferred in stable condition to the recovery area. Pathology: Bladder cancer extensive Drains: Shah catheter as above
[2024-03-06 20:10] LABS: Glucose, Whole Blood 64 mg/dL (60-115)
[2024-03-06] MEDS: Amitriptyline HCl 50 MG TABLET PO (20:45)
[2024-03-06] MEDS: Atorvastatin Calcium 40 MG TABLET PO (20:45)
[2024-03-06] MEDS: cefTRIAXone sodium 1 GM in 0.9 % Sodium Chloride 50 ML IV (22:31)
[2024-03-07 04:00] VITALS: BP 137/64; PULSE 93; RESP 16; TEMP 36.2; O2SAT 93
[2024-03-07] MEDS: Omeprazole 20 MG CAPSULE.DR PO ×2 (06:00→16:57)
--- NOTE | 2024-03-07 06:16 | PC.NURSE ---
Addendum entered by Miriam Huerta RN 03/07/24 06:38: true urine output 350ml very light pink tinged urine from [id number]. Original Note: Patient returned from PACU via her bed at 1949. she is s/pcystoscopy and bladder biopsy procedure. Patient has a CBI in progress, draining bloody urine freely with no shreds and no clots present. Pt is a/ox3, skin warm and dry, denies pain, and lung myrick clear. Patient was NPO thru out the day and missed dinnertime, she denied nausea and ate a jello, sandwich, juice, and some sherbert. Prior to eating pt had a blood sugar POC reading at 64, therefore no coverage per ISS. note sent to Hospitalist on duty and scheduled Lantus Insulin held also. Heparin sc held secondary to bloody urine at this time. Pts daughter at bedside, VSS, and she continued to deny pain or discomforts. CBI monitored frequently, urology note stated gentle CBI, therefore, slow drip maintained and noted drainage bag went from bloody, to punch colored, to dark pink, to pink tinged overnight with no clots or shreds present. Will document true urine output to intake/output intervention. Patient able to nap with no s/sx distress.
[2024-03-07 07:06] VITALS: BP 149/67; PULSE 92; RESP 18; TEMP 36.1; O2SAT 94
[2024-03-07 07:16] LABS: Glucose, Whole Blood 324 mg/dL (60-115)
[2024-03-07] MEDS: Insulin Lispro 100 UNIT/ML 3 ML VIAL SUBCUT ×4 (08:02→20:51)
[2024-03-07] MEDS: Cholecalciferol (Vitamin D3) 25 MCG TABLET 50 MCG PO (08:03)
[2024-03-07] MEDS: Metoprolol Tartrate 25 MG TABLET PO ×2 (08:03→20:51)
[2024-03-07] MEDS: 0.9 % Sodium Chloride Flush 3 ML SYRINGE IVFLUSH ×3 (08:03→20:52)
[2024-03-07] MEDS: calcitrioL 0.25 MCG CAPSULE PO (08:03)
[2024-03-07] MEDS: Ferrous Sulfate 324 MG TABLET.DR PO (08:03)
[2024-03-07] MEDS: Sodium Bicarbonate 650 MG TABLET 1300 MG PO ×3 (08:03→20:51)
--- NOTE | 2024-03-07 08:23 | HO.POSTANES ---
Post Anesthesia Evaluation Post Anesthesia Evaluation Date of Service: 03/07/24 Vital Signs: Vital Signs Temp Pulse Resp BP Pulse Ox O2 Del Method 03/07/24 07:06 96.9 F 92 18 149/67 H 94 Room Air 03/07/24 04:00 97.1 F 93 16 137/64 93 Room Air 03/06/24 23:52 97.0 F 95 16 137/65 94 Room Air 03/06/24 20:45 84 148/67 H Anesthesia: General LMA Mental Status: Awake Pain Control: Satisfactory Nausea/Vomiting: None Hydration: Adequate Anesthesia-Related Issues: No Anes. Related Issues
[2024-03-07 09:18] LABS: Anion Gap 18 (12-20); Blood Urea Nitrogen 96 mg/dL (9-16); Calcium 7.9 mg/dL (8.4-10.2); Carbon Dioxide 19 mmol/L (22-29); Chloride 101 mmol/L (96-108); Creatinine Clr Calc Pharmacy 6.2; Estimated Glomerular Filt Rate 5; Glucose Random 326 mg/dL (60-115); Potassium 4.4 mmol/L (3.3-5.1); Sodium 134 mmol/L (135-145)
--- NOTE | 2024-03-07 10:29 | PC.NURSE ---
Pt with permacath placement to right chest in IR. Brought to dialysis via bed. Shah draining blush colored urine
--- NOTE | 2024-03-07 10:41 | HO.PM.IMPN ---
Subjective Subjective Date of Service: 03/07/24 Interval History: seen and examined patient without any new complaints at this time sitting up eating breakfast Review of Systems Negative except HPI/interval history. Physical Exam Vital Signs: Vital Signs: Last Vital Signs Temp 96.9 F 03/07/24 07:06 Pulse 92 03/07/24 07:06 Resp 18 03/07/24 07:06 BP 149/67 H 03/07/24 07:06 Pulse Ox 94 03/07/24 07:06 O2 Del Method Room Air 03/07/24 07:06 O2 Flow Rate 2 03/06/24 19:21 BMI result Body Mass Index 30.2 Appearing in no acute distress lung sounds are clear to auscultation heart regular rate rhythm, clear S1, S2 positive bowel sounds, abdomen is soft, nontender neuro patient is alert x3, no focal deficits Objective Data Active Medications Acetaminophen (Acetaminophen 325 Mg Tablet) 650 mg PO Q6H PRN PRN Reason: Pain, Mild (Pain Scale 1-3) Last Admin: 03/04/24 17:47 Dose: 650 mg Documented By: ADDISON Amitriptyline HCl (Amitriptyline Hcl 50 Mg Tablet) 50 mg PO BEDTIME [facility] Last Admin: 03/06/24 20:45 Dose: 50 mg Documented By: GARTH Atorvastatin Calcium (Atorvastatin Calcium 40 Mg Tablet) 40 mg PO BEDTIME [facility] Last Admin: 03/06/24 20:45 Dose: 40 mg Documented By: GARTH Calcitriol (Calcitriol 0.25 Mcg Capsule) 0.25 mcg PO DAILY [facility] Last Admin: 03/07/24 08:03 Dose: 0.25 mcg Documented By: HARSH Ferrous Sulfate (Ferrous Sulfate 324 Mg Tablet.Dr) 324 mg PO DAILY [facility] Last Admin: 03/07/24 08:03 Dose: 324 mg Documented By: HARSH Glucose (Glucose Gel 15 Gm Gel..Gram.) 15 gm PO Q15M PRN; Protocol PRN Reason: per Hypoglycemia Standing Ord. Last Admin: 03/06/24 12:40 Dose: 15 gm Documented By: HARSH Heparin Sodium (Porcine) (Heparin Sodium,Porcine 5,000 Unit/Ml Vial) 5,000 unit SUBCUT Q12H [facility] Last Admin: 03/07/24 10:28 Dose: Not Given Documented By: HARSH Non-Admin Reason: in IR Ceftriaxone Sodium 1 gm/ (Sodium Chloride) 50 mls @ 100 mls/hr IV Q24H [facility] Last Infusion: 03/06/24 23:03 Dose: Infused Documented By: GARTH Dextrose (D10) 250 mls @ 750 mls/hr IV Q15M PRN; Protocol PRN Reason: per Hypoglycemia Standing Ord. Last Infusion: 03/06/24 08:03 Dose: Infused Documented By: HARSH Insulin Glargine (Insulin Glargine,Hum.Rec.Anlog 100 Unit/Ml 10 Ml Vial) 15 unit SUBCUT BEDTIME [facility] Last Admin: 03/06/24 20:52 Dose: Not Given Documented By: GARTH Non-Admin Reason: poc 64, npo all day hold per Insulin Human Lispro (Insulin Lispro 100 Unit/Ml 3 Ml Vial) 0 unit SUBCUT QIDACHS [facility]; Protocol Last Admin: 03/07/24 08:02 Dose: 8 unit Documented By: HARSH Melatonin (Melatonin 3 Mg Tablet) 6 mg PO BEDTIME PRN PRN Reason: Insomnia Metoprolol Tartrate (Metoprolol Tartrate 25 Mg Tablet) 25 mg PO BID [facility]; Protocol Last Admin: 03/07/24 08:03 Dose: 25 mg Documented By: HARSH Omeprazole (Omeprazole 20 Mg Capsule.Dr) 20 mg PO BID@0630,1630 [facility] Last Admin: 03/07/24 06:00 Dose: 20 mg Documented By: GARTH Ondansetron HCl (Ondansetron Hcl 4 Mg/2 Ml Vial) 4 mg IVPUSH Q8H PRN PRN Reason: Nausea and Vomiting Sodium Bicarbonate (Sodium Bicarbonate 650 Mg Tablet) 1,300 mg PO TID [facility] Last Admin: 03/07/24 08:03 Dose: 1,300 mg Documented By: HARSH Sodium Chloride (0.9 % Sodium Chloride Flush 3 Ml Syringe) 3 ml IVFLUSH QSHIFT [facility] Last Admin: 03/07/24 08:03 Dose: 3 ml Documented By: HARSH Vitamin D (Cholecalciferol (Vitamin D3) 25 Mcg Tablet) 50 mcg PO DAILY [facility] Last Admin: 03/07/24 08:03 Dose: 50 mcg Documented By: HARSH Labs 03/06/24 05:25 03/07/24 08:34 Labs: Laboratory Results - last 24 hr 03/06/24 03/06/24 03/06/24 11:21 12:36 13:16 Hold Purple Top Anion Gap Estim Creat Clear Calc Estimated GFR POC Glucose 75 69 99 Random Glucose Calcium 03/06/24 03/06/24 03/07/24 16:09 20:06 07:03 Hold Purple Top Anion Gap Estim Creat Clear Calc Estimated GFR POC Glucose 76 64 324 H Random Glucose Calcium 03/07/24 08:34 Hold Purple Top SEE NOTE Anion Gap 18 Estim Creat Clear Calc 6.2 Estimated GFR 5 POC Glucose Random Glucose 326 H Calcium 7.9 L Microbiology Microbiology Results: Microbiology 03/03/24 Unknown Urine Culture - Final Urine clean catch - Urine stuart top Assessment and Plan (1) Acute kidney injury superimposed on chronic kidney disease: Status: Acute (2) Mass of bladder: Status: Acute Plan 58 yo F with a PMH of CKD5 who presented to [facility] ED with fatigue and inability to sleep. Work up revealed worsening renal function and imaging studies concerning for metastatic cancer LORIN on CKD5 with metabolic acidosis appears to be progressing to ESRD baseline SCr appears to be in the 5-6 range; presented with 10.23; SCr remains around 9-10 range PO bicarb nephrology following>plan for permacath and dialysis initiation Bladder and possible renal mass concerning for metastatic cancer urology consult> bladder wall tumor resection 03/07/24, TURBT, right retrograde placed on CBI post procedure for hematuria oncology follow up o/p for biopys results UTI s/p rocepin, 5 days urine cx mixed DM 2 with hypoglycemia ss, lantus decreased HTN continue baseline meds HFrEF continue baseline meds Full Code Attending Dr. Jurado DVT pptx heparin Requires continued hospitalization for LORIN on CKD5, with high likely baez for requiring dialysis this admission; also needs evaluation for bladder/renal mass Quality Stroke Does the patient have a stroke diagnosis?: No VTE Prior VTE?: No VTE Risk Level:: Medical - moderate - high VTE Device Contraindication: Treatment Not Indicated VTE Drug Contraindication: N/A - Med Ordered
--- NOTE | 2024-03-07 10:52 | PCN2_ITS ---
Brief Operative Note Date of procedure: 03/07/24 Pre-op diagnosis: Needs halfway access for HD Post-op diagnosis: same Procedure: Right IJ permcath Right IJ 23 cm permcath placed using US and Fluoro. Tip at cavoatrial junction. Ok for use. Anesthesia: local Condition: stable Disposition: floor
[2024-03-07 11:34] LABS: HBS Num1 241.14 mIU/mL (0-7.99); HBsAGNum1 0.29 S/CO (0.00-0.99); Hepatitis B Core Antibody Nonreactive (Nonreactive); Hepatitis B Surface Antigen Negative (Negative); ~Hepatitis B Surface Antibody REACTIVE (Nonreactive)
[2024-03-07 12:59] LABS: Glucose, Whole Blood 201 mg/dL (60-115)
--- NOTE | 2024-03-07 13:09 | P.PNNP_ITS ---
Subjective Subjective Date of Service: 03/09/24 Interval history: seen and examined patient without any new complaints at this time sitting up eating breakfast Physical Exam 2 Vital Signs: Vital Signs: Last Vital Signs Temp 96.9 F 03/07/24 07:06 Pulse 92 03/07/24 07:06 Resp 18 03/07/24 07:06 BP 149/67 H 03/07/24 07:06 Pulse Ox 94 03/07/24 07:06 O2 Del Method Room Air 03/07/24 07:06 O2 Flow Rate 2 03/06/24 19:21 BMI result Body Mass Index 30.2 Const: Other: General - no acute distress, appears comfortable Cardiovascular - regular rate and rhythm, S1-S2 Lungs - normal respiratory effort, clear to auscultation bilaterally, no wheezing Abdomen - soft, nontender, no rebound or guarding Extremities - no edema bilaterally Neuro - awake and alert, no focal deficits Objective Data Labs 03/08/24 22:33 03/07/24 08:34 Labs: Laboratory Results - last 24 hr 03/06/24 03/06/24 03/06/24 13:16 16:09 20:06 Hold Purple Top Sodium Potassium Chloride Carbon Dioxide Anion Gap BUN Creatinine Estim Creat Clear Calc Estimated GFR POC Glucose 99 76 64 Random Glucose Calcium Hep Bs Antigen Hep Bs Antibody Hep B Core Total Ab 03/07/24 03/07/24 03/07/24 07:03 08:34 10:18 Hold Purple Top SEE NOTE Sodium 134 L Potassium 4.4 Chloride 101 Carbon Dioxide 19 L Anion Gap 18 BUN 96 H Creatinine 8.68 H* Estim Creat Clear Calc 6.2 Estimated GFR 5 POC Glucose 324 H Random Glucose 326 H Calcium 7.9 L Hep Bs Antigen Negative Hep Bs Antibody REACTIVE Hep B Core Total Ab Nonreactive 03/07/24 12:53 Hold Purple Top Sodium Potassium Chloride Carbon Dioxide Anion Gap BUN Creatinine Estim Creat Clear Calc Estimated GFR POC Glucose 201 H Random Glucose Calcium Hep Bs Antigen Hep Bs Antibody Hep B Core Total Ab Microbiology Microbiology Results: Microbiology 03/03/24 Unknown Urine clean catch - Urine stuart top Urine Culture - Final 03/03/24 22:47 Blood - Venous Blood Culture - Preliminary No growth after 48 hours. 03/03/24 22:19 Blood - Venous Blood Culture - Preliminary No growth after 48 hours. Procedures Date of Service Date of Service: 03/09/24 Assessment & Plan Assessment and plan (1) CKD stage 5 due to type 2 diabetes mellitus: Status: Acute (2) Mass of bladder: Status: Inactive Plan 58-year-old woman with advanced renal failure approaching end stage renal disease. The AV fistula is not mature yet. HD with permcath Bladder mass suspicious for malignancy. Seen by Urology. Time Spent With Patient Time: Total time managing care of this patient today ____ minutes. Progress Note: Quality Stroke Does the patient have a stroke diagnosis?: No
[2024-03-07 13:17] VITALS: BP 128/62; PULSE 93; RESP 16; TEMP 36.3; O2SAT 96
--- NOTE | 2024-03-07 14:01 | PC.NURSE ---
Pt returned from dialysis, tsai draining punch colored urine. Reconnected to [facility]- Danni Schulz notified. Pt denies pain at this time
[2024-03-07 15:18] VITALS: BP 136/60; PULSE 103; RESP 18; TEMP 36.1; O2SAT 95
[2024-03-07 15:59] LABS: Glucose, Whole Blood 293 mg/dL (60-115)
--- NOTE | 2024-03-07 18:39 | P.PNUR_ITS ---
Subjective Subjective Date of Service: 03/07/24 Interval history: Persistent hematuria following TURBT for extensive right wall bladder cancer Low hematocrit Poor platelet function secondary to dialysis Would consider platelet transfusion versus tranexamic acid if persistent tomorrow Physical Exam 2 Vital Signs: Vital Signs: Last Vital Signs Temp 97.0 F 03/07/24 15:18 Pulse 103 H 03/07/24 15:18 Resp 18 03/07/24 15:18 BP 136/60 03/07/24 15:18 Pulse Ox 95 03/07/24 15:18 O2 Del Method Room Air 03/07/24 15:18 O2 Flow Rate 2 03/06/24 19:21 BMI result Body Mass Index 30.2 Const: General: cooperative, healthy appearing, comfortable and no acute distress Orientation/consciousness: patient oriented x3 HEENT: Face and sinus: Yes normal facial exam Mouth: moist mucous membranes Neck: Neck: Yes normal visual inspection, Yes full ROM and Yes trachea midline Chest: Chest palpation & inspection: normal inspection of the chest Resp: Effort & Inspection: normal respiratory effort, able to speak in complete sentences and no respiratory distress GI: Inspection: Yes normal to inspection Back/Spine/Pelvis: Cervical Spine: normal cervical lordosis Thoracic/Lumbar Spine: thoracic and lumbar spine normal to inspection Skin: General skin exam: no rashes or lesions noted Neuro: General: patient oriented x3, tone normal and moves all extremities Extrem: General: Yes normal to inspection and Yes capillary refill normal Urology Results Labs 03/06/24 05:25 03/07/24 08:34 Labs: Laboratory Results - last 24 hr 03/06/24 03/07/24 03/07/24 20:06 07:03 08:34 Hold Purple Top SEE NOTE Sodium 134 L Potassium 4.4 Chloride 101 Carbon Dioxide 19 L Anion Gap 18 BUN 96 H Creatinine 8.68 H* Estim Creat Clear Calc 6.2 Estimated GFR 5 POC Glucose 64 324 H Random Glucose 326 H Calcium 7.9 L Hep Bs Antigen Hep Bs Antibody Hep B Core Total Ab 03/07/24 03/07/24 03/07/24 10:18 12:53 15:51 Hold Purple Top Sodium Potassium Chloride Carbon Dioxide Anion Gap BUN Creatinine Estim Creat Clear Calc Estimated GFR POC Glucose 201 H 293 H Random Glucose Calcium Hep Bs Antigen Negative Hep Bs Antibody REACTIVE Hep B Core Total Ab Nonreactive Progress Note: A&P Assessment and plan (1) Bladder cancer: Status: Acute Plan Continue CBI Time Spent With Patient Time: Total time managing care of this patient today ____ minutes. Progress Note: Quality Stroke Does the patient have a stroke diagnosis?: No
[2024-03-07 19:59] VITALS: BP 154/70; PULSE 110; RESP 18; TEMP 36.2; O2SAT 96
[2024-03-07 20:46] LABS: Glucose, Whole Blood 312 mg/dL (60-115)
[2024-03-07] MEDS: Insulin Glargine,Hum.rec.anlog 100 UNIT/ML 10 ML VIAL 10 UNIT SUBCUT (20:51)
[2024-03-07] MEDS: Atorvastatin Calcium 40 MG TABLET PO (20:52)
[2024-03-07] MEDS: Amitriptyline HCl 50 MG TABLET PO (20:52)
[2024-03-07] MEDS: cefTRIAXone sodium 1 GM in 0.9 % Sodium Chloride 50 ML IV (22:07)
--- NOTE | 2024-03-07 22:46 | PC.NURSE ---
2100 CBI was clamped at 1800 at 2100 tsai draining dk bloody urine CBI restarted draining punch colored urine no clots noted.Pt denies pain.
[2024-03-07 23:41] VITALS: BP 123/58; PULSE 95; RESP 16; TEMP 36.1; O2SAT 96
[2024-03-08] VITALS (12 sets, daily range): BP systolic 142–177; BP diastolic 62–82; PULSE 83–94; RESP 18–20; TEMP 36.1–36.8; O2SAT 95–97
[2024-03-08] MEDS: Omeprazole 20 MG CAPSULE.DR PO ×2 (05:49→17:14)
[2024-03-08 07:34] LABS: Glucose, Whole Blood 91 mg/dL (60-115)
[2024-03-08 07:51] LABS: MANUAL DIFF FLAG NO
[2024-03-08 07:54] LABS: Basophils Absolute Auto 0.1 X10*3/uL (0.0-0.2); Basophils Percent Auto 0.7 % (0-2); Eosinophils Absolute Auto 0.2 X10*3/uL (0.0-0.4); Eosinophils Percent Auto 2.7 % (0-4); Hemoglobin 7.5 g/dl (12.0-16.0); Imm Gran Abs Auto 0.03 X10*3/uL (0.00-0.03); Imm Gran Pct Auto 0.3 % (0.0-0.4); Lymphocytes Absolute Auto 1.9 X10*3/uL (1.2-4.9); Lymphocytes Percent Auto 21.4 % (20-40); Mean Corpuscular HGB Conc 34.1 g/dl (31.0-35.0); Mean Corpuscular Hemoglobin 29.2 pg (27.0-33.0); Mean Corpuscular Volume 85.6 fL (80.0-98.0); Mean Platelet Volume 10.9 fL (9.4-12.3); Monocytes Percent Auto 10.9 % (2-11); Neutrophils Absolute Auto 5.6 x10*3/uL (2.0-8.3); Platelet Count 130 X10*3/uL (160-400); Red Blood Count 2.57 X10*6/uL (4.20-5.50); Red Cell Distribution Width 14.2 % (11.0-16.0); White Blood Count 8.7 X10*3/uL (4.8-10.8)
[2024-03-08] MEDS: calcitrioL 0.25 MCG CAPSULE PO (09:14)
[2024-03-08] MEDS: Sodium Bicarbonate 650 MG TABLET 1300 MG PO ×3 (09:14→20:55)
[2024-03-08] MEDS: Ferrous Sulfate 324 MG TABLET.DR PO (09:14)
[2024-03-08] MEDS: Metoprolol Tartrate 25 MG TABLET PO ×2 (09:15→20:55)
[2024-03-08] MEDS: Cholecalciferol (Vitamin D3) 25 MCG TABLET 50 MCG PO (09:15)
[2024-03-08] MEDS: 0.9 % Sodium Chloride Flush 3 ML SYRINGE IVFLUSH ×3 (09:18→20:56)
--- NOTE | 2024-03-08 09:34 | HO.PM.IMPN ---
Subjective Subjective Date of Service: 03/08/24 Interval History: Seen in follow up for bladder mass, hematuria, ESRD new HD Interval history: s/p TURBT for 10cm bladder mass 03/06. Still with dark punch colored output with CBI but no clots. NO n/v/d, tolerating diet. No abd pain Review of Systems Review of Systems: Yes all other systems are reviewed and are negative Physical Exam Vital Signs: Vital Signs: Last Vital Signs Temp 98.2 F 03/08/24 07:19 Pulse 89 03/08/24 09:15 Resp 18 03/08/24 07:19 BP 142/69 H 03/08/24 09:15 Pulse Ox 95 03/08/24 07:19 O2 Del Method Room Air 03/08/24 07:19 O2 Flow Rate 2 03/06/24 19:21 BMI result Body Mass Index 30.2 Constitutional - Awake and Alert, No apparent distress Eyes - PERRLA, EOMI Cardiovascular - S1S2, RRR, No edema Respiratory - Normal lung expansion, Normal respiratory effort, No respiratory distress, CTA bilaterally Gastrointestinal - NT / ND; +BS; No rebound or guarding - No CVA tenderness. CBI in place with dark punch colored output without clots Extremities - no calf tenderness bilaterally, no swelling Skin - Warm/Dry Neurological - Alert & oriented x3 Psychological - Appropriate affect Objective Data Active Medications Acetaminophen (Acetaminophen 325 Mg Tablet) 650 mg PO Q6H PRN PRN Reason: Pain, Mild (Pain Scale 1-3) Last Admin: 03/04/24 17:47 Dose: 650 mg Documented By: ADDISON Amitriptyline HCl (Amitriptyline Hcl 50 Mg Tablet) 50 mg PO BEDTIME [facility] Last Admin: 03/07/24 20:52 Dose: 50 mg Documented By: LION Atorvastatin Calcium (Atorvastatin Calcium 40 Mg Tablet) 40 mg PO BEDTIME [facility] Last Admin: 03/07/24 20:52 Dose: 40 mg Documented By: LION Calcitriol (Calcitriol 0.25 Mcg Capsule) 0.25 mcg PO DAILY [facility] Last Admin: 03/08/24 09:14 Dose: 0.25 mcg Documented By: HEMA Ferrous Sulfate (Ferrous Sulfate 324 Mg Tablet.) 324 mg PO DAILY [facility] Last Admin: 03/08/24 09:14 Dose: 324 mg Documented By: HEMA Glucose (Glucose Gel 15 Gm Gel..Gram.) 15 gm PO Q15M PRN; Protocol PRN Reason: per Hypoglycemia Standing Ord. Last Admin: 03/06/24 12:40 Dose: 15 gm Documented By: HARSH Heparin Sodium (Porcine) (Heparin Sodium,Porcine 5,000 Unit/Ml Vial) 5,000 unit SUBCUT Q12H [facility] Last Admin: 03/07/24 22:29 Dose: Not Given Documented By: LION Non-Admin Reason: hematuria Dextrose (D10) 250 mls @ 750 mls/hr IV Q15M PRN; Protocol PRN Reason: per Hypoglycemia Standing Ord. Last Infusion: 03/06/24 08:03 Dose: Infused Documented By: HARSH Sodium Chloride (Ns) 100 mls @ 100 mls/hr IV ONCE ONE Stop: 03/08/24 10:31 Insulin Glargine (Insulin Glargine,Hum.Rec.Anlog 100 Unit/Ml 10 Ml Vial) 10 unit SUBCUT BEDTIME [facility] Last Admin: 03/07/24 20:51 Dose: 10 unit Documented By: LION Insulin Human Lispro (Insulin Lispro 100 Unit/Ml 3 Ml Vial) 0 unit SUBCUT QIDACHS [facility]; Protocol Last Admin: 03/08/24 09:17 Dose: Not Given Documented By: HEMA Non-Admin Reason: No Insulin Coverage Melatonin (Melatonin 3 Mg Tablet) 6 mg PO BEDTIME PRN PRN Reason: Insomnia Metoprolol Tartrate (Metoprolol Tartrate 25 Mg Tablet) 25 mg PO BID [facility]; Protocol Last Admin: 03/08/24 09:15 Dose: 25 mg Documented By: HEMA Omeprazole (Omeprazole 20 Mg Capsule.Dr) 20 mg PO BID@0630,1630 [facility] Last Admin: 03/08/24 05:49 Dose: 20 mg Documented By: LION Ondansetron HCl (Ondansetron Hcl 4 Mg/2 Ml Vial) 4 mg IVPUSH Q8H PRN PRN Reason: Nausea and Vomiting Sodium Bicarbonate (Sodium Bicarbonate 650 Mg Tablet) 1,300 mg PO TID [facility] Last Admin: 03/08/24 09:14 Dose: 1,300 mg Documented By: HEMA Sodium Chloride (0.9 % Sodium Chloride Flush 3 Ml Syringe) 3 ml IVFLUSH QSHIFT [facility] Last Admin: 03/08/24 09:18 Dose: 3 ml Documented By: HEMA Vitamin D (Cholecalciferol (Vitamin D3) 25 Mcg Tablet) 50 mcg PO DAILY [facility] Last Admin: 03/08/24 09:15 Dose: 50 mcg Documented By: HEMA Labs 03/08/24 07:46 03/07/24 08:34 Labs: Laboratory Results - last 24 hr 03/07/24 03/07/24 03/07/24 10:18 12:53 15:51 MCV MCH MCHC RDW Plt Count MPV Immature Gran % (Auto) Neut % (Auto) Lymph % (Auto) [place] % (Auto) Eos % (Auto) Baso % (Auto) Lymph # (Auto) [place] # (Auto) Eos # (Auto) Baso # (Auto) Abs Immat Gran (auto) Absolute Neuts (auto) Absolute Nucleated RBC Nucleated RBC % (auto) POC Glucose 201 H 293 H Hep Bs Antigen Negative Hep Bs Antibody REACTIVE Hep B Core Total Ab Nonreactive 03/07/24 03/08/24 03/08/24 20:41 07:22 07:46 MCV 85.6 MCH 29.2 MCHC 34.1 RDW 14.2 Plt Count 130 L MPV 10.9 Immature Gran % (Auto) 0.3 Neut % (Auto) 64.0 Lymph % (Auto) 21.4 [place] % (Auto) 10.9 Eos % (Auto) 2.7 Baso % (Auto) 0.7 Lymph # (Auto) 1.9 [place] # (Auto) 1.0 Eos # (Auto) 0.2 Baso # (Auto) 0.1 Abs Immat Gran (auto) 0.03 Absolute Neuts (auto) 5.6 Absolute Nucleated RBC 0.000 Nucleated RBC % (auto) 0.0 POC Glucose 312 H 91 Hep Bs Antigen Hep Bs Antibody Hep B Core Total Ab Microbiology Microbiology Results: Microbiology 03/03/24 Unknown Urine Culture - Final Urine clean catch - Urine stuart top Assessment and Plan (1) Acute kidney injury superimposed on chronic kidney disease: Status: Acute (2) Mass of bladder: Status: Inactive Plan 58 yo F with a PMH of CKD5 who presented to [facility] with fatigue and inability to sleep. Work up revealed worsening renal function and imaging studies concerning for metastatic cancer LORIN on CKD5 with metabolic acidosis appears to be progressing to ESRD baseline SCr appears to be in the 5-6 range; presented with 10.23; SCr remains around 9-10 range prior to initial HD 03/07. 03/08 creat 8.68 PO bicarb nephrology following>plan for permacath and dialysis initiation 03/07 Continue HD tues, thurs, sat per nephro Can likely dc tomorrow after HD if no further clots- CBI now clamped Bladder and possible renal mass concerning for metastatic cancer urology consult> bladder wall tumor resection 03/07/24, TURBT, right retrograde placed on CBI post procedure for hematuria. Clamped 03/08 oncology follow up o/p for biopys results Acute on chronic blood loss anemia H/H dropped to 7.5/22.0% transfuse 1 unit 03/08 per nephro hold on procrit until chemo initiated per nephro hold heparin Repeat cbc @7, follow UTI s/p rocepin, 5 days urine cx mixed DM 2 with hypoglycemia ss, lantus decreased HTN continue baseline meds HFrEF continue baseline meds Full Code Attending Dr. Jurado DVT pptx scps, hold heparin due to hematuria Requires continued hospitalization for LORIN on CKD5, s/p HD with plan to continue TTHSat; also still on CBI for hematuria r/t TURBT, currently clamped and transfusing 1 unit. Plan for dc tomorrow if no recurrent clots and h/h remains stable Quality Stroke Does the patient have a stroke diagnosis?: No VTE Prior VTE?: No VTE Risk Level:: Medical - moderate - high VTE Device Contraindication: Treatment Not Indicated VTE Drug Contraindication: N/A - Med Ordered
[2024-03-08 11:51] LABS: Glucose, Whole Blood 144 mg/dL (60-115)
[2024-03-08] MEDS: Acetaminophen 325 MG TABLET 650 MG PO (11:55)
[2024-03-08] MEDS: diphenhydrAMINE HCL 25 MG CAPSULE PO (11:55)
--- NOTE | 2024-03-08 13:07 | P.PNNP_ITS ---
Subjective Subjective Date of Service: 03/08/24 Interval history: seen and examined this morning. She did not have any new complaints at this time; sitting up eating breakfast ; Daughter by the bedside; CBI in progress Physical Exam 2 Vital Signs: Vital Signs: Last Vital Signs Temp 97.3 F 03/08/24 12:31 Pulse 83 03/08/24 12:31 Resp 20 03/08/24 12:31 BP 151/69 H 03/08/24 12:31 Pulse Ox 95 03/08/24 11:55 O2 Del Method Room Air 03/08/24 11:55 O2 Flow Rate 2 03/06/24 19:21 BMI result Body Mass Index 30.2 Const: General: comfortable and no acute distress O rientation/consciousness: patient oriented x3 HEENT: Head: Yes normocephalic Mouth: Normal oral and palatal mucosa present Eyes: EOM: EOMs intact bilaterally Neck: Neck: Yes supple Resp: Auscultation: clear to auscultation bilaterally Cardio: Jugular venous distension: no JVD Rate: regular rate GI: Palpation (GI): Soft to palpation Auscultation: normal bowel sounds : General: Yes no CVA tenderness Back/Spine/Pelvis: Back: no CVA tenderness Skin: General skin exam: no rashes or lesions noted Neuro: General: patient oriented x3 and moves all extremities Objective Data Labs 03/08/24 07:46 03/07/24 08:34 Labs: Laboratory Results - last 24 hr 03/07/24 03/07/24 03/08/24 15:51 20:41 07:22 WBC RBC Hgb Hct MCV MCH MCHC RDW Plt Count MPV Immature Gran % (Auto) Neut % (Auto) Lymph % (Auto) [place] % (Auto) Eos % (Auto) Baso % (Auto) Lymph # (Auto) [place] # (Auto) Eos # (Auto) Baso # (Auto) Abs Immat Gran (auto) Absolute Neuts (auto) Absolute Nucleated RBC Nucleated RBC % (auto) POC Glucose 293 H 312 H 91 Blood Type Antibody Screen Crossmatch 03/08/24 03/08/24 03/08/24 07:46 10:09 11:47 WBC 8.7 RBC 2.57 L Hgb 7.5 L Hct 22.0 L MCV 85.6 MCH 29.2 MCHC 34.1 RDW 14.2 Plt Count 130 L MPV 10.9 Immature Gran % (Auto) 0.3 Neut % (Auto) 64.0 Lymph % (Auto) 21.4 [place] % (Auto) 10.9 Eos % (Auto) 2.7 Baso % (Auto) 0.7 Lymph # (Auto) 1.9 [place] # (Auto) 1.0 Eos # (Auto) 0.2 Baso # (Auto) 0.1 Abs Immat Gran (auto) 0.03 Absolute Neuts (auto) 5.6 Absolute Nucleated RBC 0.000 Nucleated RBC % (auto) 0.0 POC Glucose 144 H Blood Type O Negative Antibody Screen NEGATIVE Crossmatch See Detail Microbiology Microbiology Results: Microbiology 03/03/24 Unknown Urine clean catch - Urine stuart top Urine Culture - Final 03/03/24 22:47 Blood - Venous Blood Culture - Preliminary No growth after 48 hours. 03/03/24 22:19 Blood - Venous Blood Culture - Preliminary No growth after 48 hours. Procedures Date of Service Date of Service: 03/08/24 Assessment & Plan Assessment and plan (1) Acute kidney injury superimposed on chronic kidney disease: Status: Acute Plan 58 yo F with a PMH of CKD5 who presented to [facility] ED with fatigue with worsening renal function and imaging studies concerning for metastatic cancer LORIN on CKD5 with metabolic acidosis; Has progressed to ESRD Permacath place and dialysis initiated- Next HD tomorrow Bladder and possible renal mass concerning for metastatic cancer urology seen pt- bladder wall tumor resection 03/07/24, TURBT, right retrograde placed on CBI post procedure for hematuria oncology follow up o/p for biopys results Hold Procrit for now; Transfuse one unit of PRBC today Can start low dose Entresto today; Shall F/U closely Progress Note: Quality Stroke Does the patient have a stroke diagnosis?: No
[2024-03-08 16:36] LABS: Glucose, Whole Blood 161 mg/dL (60-115)
[2024-03-08] MEDS: Insulin Lispro 100 UNIT/ML 3 ML VIAL SUBCUT (17:16)
--- NOTE | 2024-03-08 19:20 | PC.NURSE ---
Per provider telephone order, CBI clamped at 1435, tsai draining pink color urine, no clots noted, provider aware
[2024-03-08 20:40] LABS: Glucose, Whole Blood 127 mg/dL (60-115)
[2024-03-08] MEDS: Insulin Glargine,Hum.rec.anlog 100 UNIT/ML 10 ML VIAL 10 UNIT SUBCUT (20:54)
[2024-03-08] MEDS: Amitriptyline HCl 50 MG TABLET PO (20:55)
[2024-03-08] MEDS: Atorvastatin Calcium 40 MG TABLET PO (20:56)
[2024-03-08 22:53] LABS: Hematocrit 26.1 % (37.0-47.0); Hemoglobin 8.9 g/dl (12.0-16.0)
[2024-03-09 03:12] VITALS: BP 150/67; PULSE 84; RESP 18; TEMP 36.1; O2SAT 95
[2024-03-09] MEDS: Omeprazole 20 MG CAPSULE.DR PO ×2 (05:26→17:16)
--- NOTE | 2024-03-09 08:43 | W.PM.DNNEP ---
Subjective Subjective Date of Service: 03/09/24 This patient was seen during dialysis. Interval history: Seen in follow up for bladder mass, hematuria, ESRD new HD Interval history: s/p TURBT for 10cm bladder mass 03/06. Physical Exam Vital Signs: Vital Signs: Last Vital Signs Temp 97 F 03/09/24 03:12 Pulse 84 03/09/24 03:12 Resp 18 03/09/24 03:12 BP 150/67 H 03/09/24 03:12 Pulse Ox 95 03/09/24 03:12 O2 Del Method Room Air 03/09/24 03:12 O2 Flow Rate 2 03/06/24 19:21 BMI result Body Mass Index 30.2 Const: Other: General - no acute distress, appears comfortable Cardiovascular - regular rate and rhythm, S1-S2 Lungs - normal respiratory effort, clear to auscultation bilaterally, no wheezing Abdomen - soft, nontender, no rebound or guarding Extremities - no edema bilaterally Neuro - awake and alert, no focal deficits Assessment & Plan Assessment and plan (1) CKD stage 5 due to type 2 diabetes mellitus: Status: Acute Plan 58-year-old woman with advanced renal failure approaching end stage renal disease. The AV fistula is not mature yet. HD with permcath Contin HD 3 x week In the process of arranging out pt dialysis. 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 Seen by Urology. s/p Cysto and biopsy Time Spent With Patient Time: Total time managing care of this patient today ____ minutes. Procedures Date of Service Date of Service: 03/09/24
[2024-03-09 11:13] LABS: Glucose, Whole Blood 123 mg/dL (60-115)
[2024-03-09 11:18] LABS: MANUAL DIFF FLAG NO
[2024-03-09 11:20] VITALS: BP 127/60; PULSE 88; RESP 18; TEMP 36.7; O2SAT 96
[2024-03-09 11:24] LABS: Basophils Absolute Auto 0.1 X10*3/uL (0.0-0.2); Basophils Percent Auto 0.7 % (0-2); Eosinophils Absolute Auto 0.4 X10*3/uL (0.0-0.4); Hematocrit 30.1 % (37.0-47.0); Hemoglobin 10.2 g/dl (12.0-16.0); Imm Gran Abs Auto 0.05 X10*3/uL (0.00-0.03); Imm Gran Pct Auto 0.6 % (0.0-0.4); Mean Corpuscular HGB Conc 33.9 g/dl (31.0-35.0); Mean Corpuscular Volume 85.5 fL (80.0-98.0); Mean Platelet Volume 10.4 fL (9.4-12.3); Monocytes Absolute Auto 0.8 X10*3/uL (0.1-1.2); Monocytes Percent Auto 9.1 % (2-11); Neutrophils Absolute Auto 6.8 x10*3/uL (2.0-8.3); Neutrophils Percent Auto 74.6 % (45-73); Platelet Count 115 X10*3/uL (160-400); Red Blood Count 3.52 X10*6/uL (4.20-5.50); Red Cell Distribution Width 15.1 % (11.0-16.0); White Blood Count 9.1 X10*3/uL (4.8-10.8)
[2024-03-09] MEDS: Ferrous Sulfate 324 MG TABLET.DR PO (11:27)
[2024-03-09] MEDS: Cholecalciferol (Vitamin D3) 25 MCG TABLET 50 MCG PO (11:27)
[2024-03-09] MEDS: 0.9 % Sodium Chloride Flush 3 ML SYRINGE IVFLUSH ×2 (11:28→17:16)
[2024-03-09] MEDS: calcitrioL 0.25 MCG CAPSULE PO (11:28)
[2024-03-09 11:48] LABS: Parathyroid Hormone Intact 910.9 pg/mL (8.7-77.1)
[2024-03-09 11:55] LABS: Anion Gap 15 (12-20); Blood Urea Nitrogen 29 mg/dL (9-16); Calcium 8.3 mg/dL (8.4-10.2); Carbon Dioxide 23 mmol/L (22-29); Chloride 101 mmol/L (96-108); Creatinine Clr Calc Pharmacy 17.2; Estimated Glomerular Filt Rate 15; Glucose Random 130 mg/dL (60-115); Potassium 3.7 mmol/L (3.3-5.1); Sodium 135 mmol/L (135-145)
--- NOTE | 2024-03-09 13:26 | HO.PM.IMPN ---
Subjective Subjective Date of Service: 03/09/24 Interval History: Seen and examined in hemodialysis Follow-up for hematuria, bladder mass, ESRD. No overnight events Review of Systems Review of Systems: Yes all other systems are reviewed and are negative Constitutional Constitutional: Denies fever(s) Cardiovascular Cardiovascular: Denies chest pain and Denies dyspnea Respiratory Respiratory: Denies dyspnea Gastrointestinal Gastrointestinal: Denies abdominal pain Physical Exam Vital Signs: Vital Signs: Last Vital Signs Temp 98.0 F 03/09/24 11:20 Pulse 88 03/09/24 11:20 Resp 18 03/09/24 11:20 BP 127/60 03/09/24 11:20 Pulse Ox 96 03/09/24 11:20 O2 Del Method Room Air 03/09/24 11:20 O2 Flow Rate 2 03/06/24 19:21 BMI result Body Mass Index 30.2 Const: Other: Constitutional-cooperative, comfortable, no acute distress, alert, oriented Pulmonary lungs are clear to auscultation bilaterally no respiratory distress GI abdomen is soft, nondistended, nontender Shah in place pink tinged urine Musculoskeletal-patient is able to move all 4 extremities spontaneously Neuro-grossly nonfocal Objective Data Active Medications Acetaminophen (Acetaminophen 325 Mg Tablet) 650 mg PO Q6H PRN PRN Reason: Pain, Mild (Pain Scale 1-3) Last Admin: 03/04/24 17:47 Dose: 650 mg Documented By: ADDISON Amitriptyline HCl (Amitriptyline Hcl 50 Mg Tablet) 50 mg PO BEDTIME [facility] Last Admin: 03/08/24 20:55 Dose: 50 mg Documented By: LION Atorvastatin Calcium (Atorvastatin Calcium 40 Mg Tablet) 40 mg PO BEDTIME [facility] Last Admin: 03/08/24 20:56 Dose: 40 mg Documented By: LION Calcitriol (Calcitriol 0.25 Mcg Capsule) 0.25 mcg PO DAILY [facility] Last Admin: 03/09/24 11:28 Dose: 0.25 mcg Documented By: RUSLAN Ferrous Sulfate (Ferrous Sulfate 324 Mg Tablet.) 324 mg PO DAILY [facility] Last Admin: 03/09/24 11:27 Dose: 324 mg Documented By: RUSLAN Glucose (Glucose Gel 15 Gm Gel..Gram.) 15 gm PO Q15M PRN; Protocol PRN Reason: per Hypoglycemia Standing Ord. Last Admin: 03/06/24 12:40 Dose: 15 gm Documented By: HARSH Heparin Sodium (Porcine) (Heparin Sodium,Porcine 5,000 Unit/Ml Vial) 5,000 unit SUBCUT Q12H [facility] Last Admin: 03/08/24 11:11 Dose: Not Given Documented By: HOLLY Non-Admin Reason: Hematuria Dextrose (D10) 250 mls @ 750 mls/hr IV Q15M PRN; Protocol PRN Reason: per Hypoglycemia Standing Ord. Last Infusion: 03/06/24 08:03 Dose: Infused Documented By: HARSH Insulin Glargine (Insulin Glargine,Hum.Rec.Anlog 100 Unit/Ml 10 Ml Vial) 10 unit SUBCUT BEDTIME [facility] Last Admin: 03/08/24 20:54 Dose: 10 unit Documented By: LION Insulin Human Lispro (Insulin Lispro 100 Unit/Ml 3 Ml Vial) 0 unit SUBCUT QIDACHS [facility]; Protocol Last Admin: 03/09/24 11:21 Dose: Not Given Documented By: RUSLAN Non-Admin Reason: No Insulin Coverage Melatonin (Melatonin 3 Mg Tablet) 6 mg PO BEDTIME PRN PRN Reason: Insomnia Metoprolol Tartrate (Metoprolol Tartrate 25 Mg Tablet) 25 mg PO BID [facility]; Protocol Last Admin: 03/09/24 11:16 Dose: Not Given Documented By: RUSLAN Non-Admin Reason: Physician Held Med Omeprazole (Omeprazole 20 Mg Capsule.) 20 mg PO BID@0630,1630 [facility] Last Admin: 03/09/24 05:26 Dose: 20 mg Documented By: LION Ondansetron HCl (Ondansetron Hcl 4 Mg/2 Ml Vial) 4 mg IVPUSH Q8H PRN PRN Reason: Nausea and Vomiting Sodium Bicarbonate (Sodium Bicarbonate 650 Mg Tablet) 1,300 mg PO TID [facility] Last Admin: 03/09/24 11:16 Dose: Not Given Documented By: RUSLAN Non-Admin Reason: Physician Held Med Sodium Chloride (0.9 % Sodium Chloride Flush 3 Ml Syringe) 3 ml IVFLUSH QSHIFT [facility] Last Admin: 03/09/24 11:28 Dose: 3 ml Documented By: RUSLAN Vitamin D (Cholecalciferol (Vitamin D3) 25 Mcg Tablet) 50 mcg PO DAILY [facility] Last Admin: 03/09/24 11:27 Dose: 50 mcg Documented By: RUSLAN Labs 03/09/24 11:13 03/09/24 11:13 Labs: Laboratory Results - last 24 hr 03/08/24 03/08/24 03/08/24 10:09 16:16 20:34 MCV MCH MCHC RDW Plt Count MPV Immature Gran % (Auto) Neut % (Auto) Lymph % (Auto) [place] % (Auto) Eos % (Auto) Baso % (Auto) Lymph # (Auto) [place] # (Auto) Eos # (Auto) Baso # (Auto) Abs Immat Gran (auto) Absolute Neuts (auto) Absolute Nucleated RBC Nucleated RBC % (auto) Anion Gap Estim Creat Clear Calc Estimated GFR POC Glucose 161 H 127 H Random Glucose Calcium PTH Intact Crossmatch See Detail 03/09/24 03/09/24 11:07 11:13 MCV 85.5 MCH 29.0 MCHC 33.9 RDW 15.1 Plt Count 115 L MPV 10.4 Immature Gran % (Auto) 0.6 H Neut % (Auto) 74.6 H Lymph % (Auto) 11.0 L [place] % (Auto) 9.1 Eos % (Auto) 4.0 Baso % (Auto) 0.7 Lymph # (Auto) 1.0 L [place] # (Auto) 0.8 Eos # (Auto) 0.4 Baso # (Auto) 0.1 Abs Immat Gran (auto) 0.05 H Absolute Neuts (auto) 6.8 Absolute Nucleated RBC 0.000 Nucleated RBC % (auto) 0.0 Anion Gap 15 Estim Creat Clear Calc 17.2 Estimated GFR 15 POC Glucose 123 H Random Glucose 130 H Calcium 8.3 L PTH Intact 910.9 H Crossmatch Microbiology Microbiology Results: Microbiology 03/03/24 22:47 Blood Culture - Final Blood - Venous No growth after 5 days. 03/03/24 22:19 Blood Culture - Final Blood - Venous No growth after 5 days. Assessment and Plan (1) Bladder cancer: Status: Acute Plan 58 yo F with a PMH of CKD5 who presented to [facility] with fatigue and inability to sleep. Work up revealed worsening renal function and imaging studies concerning for metastatic cancer LORIN on CKD5 with metabolic acidosis progressed to ESRD nephrology following>plan for permacath and dialysis initiation 03/07 Continue HD tu, th, sat per nephro - as of yet outpatient dialysis has been unable to be arranged. Will need to remain inpatient until outpatient dialysis arranged Bladder mass concerning for metastatic cancer urology consult> bladder wall tumor resection 03/07/24, TURBT, right retrograde placed on CBI post procedure for hematuria. Clamped 03/08 and CBI stopped Biopsy with high-grade papillary urothelial carcinoma, invasive into lamina propria Acute on chronic blood loss anemia H/H dropped to 7.5/22.0% transfuse 1 unit 03/08 per nephro hold on procrit until chemo initiated per nephro hold heparin H/H improved UTI s/p rocepin, 5 days urine cx mixed Thrombocytopenia Chronic DM 2 with hypoglycemia ss, lantus decreased HTN continue baseline meds HFrEF continue baseline meds Full Code Attending Dr. Jurado DVT pptx scps, hold heparin due to hematuria Requires continued hospitalization for LORIN on CKD5, s/p HD with plan to continue TTHSat Quality Stroke Does the patient have a stroke diagnosis?: No VTE Prior VTE?: No VTE Risk Level:: Medical - moderate - high VTE Device Contraindication: Treatment Not Indicated VTE Drug Contraindication: N/A - Med Ordered
[2024-03-09] MEDS: Sodium Bicarbonate 650 MG TABLET 1300 MG PO (14:37)
[2024-03-09 15:56] VITALS: BP 150/70; PULSE 102; RESP 16; TEMP 36.3; O2SAT 96
[2024-03-09 16:50] LABS: Glucose, Whole Blood 143 mg/dL (60-115)
[2024-03-09 17:00] VITALS: O2SAT 99
[2024-03-09 19:25] LABS: MANUAL DIFF FLAG NO
[2024-03-09 19:30] VITALS: BP 158/73; PULSE 100; RESP 18; TEMP 36.3; O2SAT 96
[2024-03-09 19:47] LABS: Basophils Absolute Auto 0.1 X10*3/uL (0.0-0.2); Basophils Percent Auto 0.8 % (0-2); Eosinophils Absolute Auto 0.2 X10*3/uL (0.0-0.4); Eosinophils Percent Auto 2.4 % (0-4); Hematocrit 28.6 % (37.0-47.0); Hemoglobin 9.8 g/dl (12.0-16.0); Imm Gran Pct Auto 1.1 % (0.0-0.4); Lymphocytes Absolute Auto 1.4 X10*3/uL (1.2-4.9); Lymphocytes Percent Auto 15.8 % (20-40); Mean Corpuscular HGB Conc 34.3 g/dl (31.0-35.0); Mean Corpuscular Hemoglobin 28.7 pg (27.0-33.0); Mean Corpuscular Volume 83.6 fL (80.0-98.0); Mean Platelet Volume 10.8 fL (9.4-12.3); Monocytes Absolute Auto 0.8 X10*3/uL (0.1-1.2); Neutrophils Absolute Auto 6.2 x10*3/uL (2.0-8.3); Neutrophils Percent Auto 70.9 % (45-73); Platelet Count 115 X10*3/uL (160-400); Red Blood Count 3.42 X10*6/uL (4.20-5.50); Red Cell Distribution Width 14.8 % (11.0-16.0); White Blood Count 8.8 X10*3/uL (4.8-10.8)
[2024-03-09 20:20] LABS: Glucose, Whole Blood 196 mg/dL (60-115)
[2024-03-09 20:29] VITALS: BP 158/73; PULSE 100
[2024-03-09] MEDS: Acetaminophen 325 MG TABLET 650 MG PO (20:29)
[2024-03-09] MEDS: Amitriptyline HCl 50 MG TABLET PO (20:29)
[2024-03-09] MEDS: Atorvastatin Calcium 40 MG TABLET PO (20:29)
[2024-03-09] MEDS: Metoprolol Tartrate 25 MG TABLET PO (20:29)
[2024-03-09] MEDS: Insulin Glargine,Hum.rec.anlog 100 UNIT/ML 10 ML VIAL 10 UNIT SUBCUT (20:32)
[2024-03-10] VITALS (7 sets, daily range): BP systolic 130–142; BP diastolic 60–82; PULSE 86–96; RESP 16–18; TEMP 36.1–36.8; O2SAT 91–94
[2024-03-10] MEDS: Omeprazole 20 MG CAPSULE.DR PO ×2 (06:02→16:24)
[2024-03-10 07:39] LABS: Glucose, Whole Blood 101 mg/dL (60-115)
[2024-03-10] MEDS: Cholecalciferol (Vitamin D3) 25 MCG TABLET 50 MCG PO (07:58)
[2024-03-10] MEDS: calcitrioL 0.25 MCG CAPSULE PO (07:59)
[2024-03-10] MEDS: Ferrous Sulfate 324 MG TABLET.DR PO (07:59)
[2024-03-10] MEDS: Metoprolol Tartrate 25 MG TABLET PO ×2 (07:59→21:31)
[2024-03-10] MEDS: 0.9 % Sodium Chloride Flush 3 ML SYRINGE IVFLUSH ×2 (08:01→16:24)
[2024-03-10 11:12] LABS: Glucose, Whole Blood 255 mg/dL (60-115)
[2024-03-10] MEDS: Insulin Lispro 100 UNIT/ML 3 ML VIAL SUBCUT (12:01)
--- NOTE | 2024-03-10 12:58 | MHC.CM.PN ---
EMR reviewed. Per MD rounds patient not cleared for dc, nephro has not been able to secure an outpt HD slot. PT eval completed today. Rec home w/ services. CM met with patient via assistant teaching professor. Patient prefers [facility], who has accepted. Patient reports her sister will transport to HD after dc, until PT-[address] CM will continue to follow.
[2024-03-10 15:56] LABS: Glucose, Whole Blood 111 mg/dL (60-115)
--- NOTE | 2024-03-10 16:00 | HO.PM.IMPN ---
Subjective Subjective Date of Service: 03/10/24 Interval History: seen and examined this morning follow up for bladder mass, hematuria, renal failure with progression to ESRD initiated on HD no further hematuria, CBI stopped 03/09 no overnight events Review of Systems Review of Systems: Yes all other systems are reviewed and are negative Constitutional Constitutional: Denies chills and Denies fever(s) Cardiovascular Cardiovascular: Denies chest pain, Denies palpitations and Denies dyspnea Respiratory Respiratory: Denies cough and Denies dyspnea Gastrointestinal Gastrointestinal: Denies abdominal pain, Denies nausea and Denies vomiting Endocrine Endocrine: Denies palpitations Physical Exam Vital Signs: Vital Signs: Last Vital Signs Temp 96.9 F 03/10/24 15:27 Pulse 95 03/10/24 15:27 Resp 18 03/10/24 15:27 BP 139/63 03/10/24 15:27 Pulse Ox 93 03/10/24 15:27 O2 Del Method Room Air 03/10/24 15:27 O2 Flow Rate 2 03/06/24 19:21 BMI result Body Mass Index 30.2 Const: Other: Constitutional-cooperative, comfortable, no acute distress, alert, oriented chest - permcath right chest wall Pulmonary lungs are clear to auscultation bilaterally no respiratory distress GI abdomen is soft, nondistended, nontender Shah in place no hematuria, yellow urine Musculoskeletal-patient is able to move all 4 extremities spontaneously Neuro-grossly nonfocal Objective Data Active Medications Acetaminophen (Acetaminophen 325 Mg Tablet) 650 mg PO Q6H PRN PRN Reason: Pain, Mild (Pain Scale 1-3) Last Admin: 03/09/24 20:29 Dose: 650 mg Documented By: ANGELINA Amitriptyline HCl (Amitriptyline Hcl 50 Mg Tablet) 50 mg PO BEDTIME [facility] Last Admin: 03/09/24 20:29 Dose: 50 mg Documented By: ANGELINA Atorvastatin Calcium (Atorvastatin Calcium 40 Mg Tablet) 40 mg PO BEDTIME [facility] Last Admin: 03/09/24 20:29 Dose: 40 mg Documented By: ANGELINA Calcitriol (Calcitriol 0.25 Mcg Capsule) 0.25 mcg PO DAILY [facility] Last Admin: 03/10/24 07:59 Dose: 0.25 mcg Documented By: RUSLAN Ferrous Sulfate (Ferrous Sulfate 324 Mg Tablet.) 324 mg PO DAILY [facility] Last Admin: 03/10/24 07:59 Dose: 324 mg Documented By: RUSLAN Glucose (Glucose Gel 15 Gm Gel..Gram.) 15 gm PO Q15M PRN; Protocol PRN Reason: per Hypoglycemia Standing Ord. Last Admin: 03/06/24 12:40 Dose: 15 gm Documented By: HARSH Heparin Sodium (Porcine) (Heparin Sodium,Porcine 5,000 Unit/Ml Vial) 5,000 unit SUBCUT Q12H [facility] Last Admin: 03/08/24 11:11 Dose: Not Given Documented By: HOLLY Non-Admin Reason: Hematuria Dextrose (D10) 250 mls @ 750 mls/hr IV Q15M PRN; Protocol PRN Reason: per Hypoglycemia Standing Ord. Last Infusion: 03/06/24 08:03 Dose: Infused Documented By: HARSH Insulin Glargine (Insulin Glargine,Hum.Rec.Anlog 100 Unit/Ml 10 Ml Vial) 10 unit SUBCUT BEDTIME [facility] Last Admin: 03/09/24 20:32 Dose: 10 unit Documented By: ANGELINA Insulin Human Lispro (Insulin Lispro 100 Unit/Ml 3 Ml Vial) 0 unit SUBCUT QIDACHS [facility]; Protocol Last Admin: 03/10/24 12:01 Dose: 6 unit Documented By: IWONA Melatonin (Melatonin 3 Mg Tablet) 6 mg PO BEDTIME PRN PRN Reason: Insomnia Metoprolol Tartrate (Metoprolol Tartrate 25 Mg Tablet) 25 mg PO BID [facility]; Protocol Last Admin: 03/10/24 07:59 Dose: 25 mg Documented By: RUSLAN Omeprazole (Omeprazole 20 Mg Capsule.Dr) 20 mg PO BID@0630,1630 [facility] Last Admin: 03/10/24 06:02 Dose: 20 mg Documented By: ANGELINA Ondansetron HCl (Ondansetron Hcl 4 Mg/2 Ml Vial) 4 mg IVPUSH Q8H PRN PRN Reason: Nausea and Vomiting Sodium Bicarbonate (Sodium Bicarbonate 650 Mg Tablet) 1,300 mg PO TID [facility] Last Admin: 03/09/24 14:37 Dose: 1,300 mg Documented By: RUSLAN Sodium Chloride (0.9 % Sodium Chloride Flush 3 Ml Syringe) 3 ml IVFLUSH QSHIFT [facility] Last Admin: 03/10/24 08:01 Dose: 3 ml Documented By: RUSLAN Vitamin D (Cholecalciferol (Vitamin D3) 25 Mcg Tablet) 50 mcg PO DAILY [facility] Last Admin: 03/10/24 07:58 Dose: 50 mcg Documented By: RUSLAN Labs 03/09/24 19:21 03/09/24 11:13 Labs: Laboratory Results - last 24 hr 03/09/24 03/09/24 03/09/24 16:46 19:21 20:16 MCV 83.6 MCH 28.7 MCHC 34.3 RDW 14.8 Plt Count 115 L MPV 10.8 Immature Gran % (Auto) 1.1 H Neut % (Auto) 70.9 Lymph % (Auto) 15.8 L [place] % (Auto) 9.0 Eos % (Auto) 2.4 Baso % (Auto) 0.8 Lymph # (Auto) 1.4 [place] # (Auto) 0.8 Eos # (Auto) 0.2 Baso # (Auto) 0.1 Abs Immat Gran (auto) 0.10 H Absolute Neuts (auto) 6.2 Absolute Nucleated RBC 0.000 Nucleated RBC % (auto) 0.0 POC Glucose 143 H 196 H 03/10/24 03/10/24 03/10/24 07:29 11:09 15:53 MCV MCH MCHC RDW Plt Count MPV Immature Gran % (Auto) Neut % (Auto) Lymph % (Auto) [place] % (Auto) Eos % (Auto) Baso % (Auto) Lymph # (Auto) [place] # (Auto) Eos # (Auto) Baso # (Auto) Abs Immat Gran (auto) Absolute Neuts (auto) Absolute Nucleated RBC Nucleated RBC % (auto) POC Glucose 101 255 H 111 Assessment and Plan (1) Bladder cancer: Status: Acute (2) ESRD (end stage renal disease): Status: Acute Plan This is a 58 yo F with a PMH of CKD5 who presented to [facility] [place] [facility] with fatigue and inability to sleep. Work up revealed worsening renal function and imaging studies concerning for metastatic cancer s/p resection of bladder mass and initiation of hemodialysis. LORIN on CKD5 with metabolic acidosis progressed to ESRD nephrology following>s/p permacath and dialysis initiation 03/07 plan for HD tomorrow and then outpatient MWF in [place] Bladder mass concerning for metastatic cancer urology consult> bladder wall tumor resection 03/07/24, TURBT, right retrograde placed on CBI post procedure for hematuria. Clamped 03/08 and CBI stopped Biopsy with high-grade papillary urothelial carcinoma, invasive into lamina propria outpatient follow up with oncology plan for voiding trial in am Acute on chronic blood loss anemia s/p 1 unit 03/08 hold on procrit until chemo initiated per nephro hold heparin H/H improved after transfusion and has remained stable UTI s/p ceftriaxone, 5 days urine cx mixed Thrombocytopenia Chronic DM 2 with hypoglycemia ss, lantus decreased HTN continue baseline meds HFrEF continue baseline meds Full Code Attending Dr. Bella DVT pptx scps, hold heparin due to hematuria Requires continued hospitalization for LORIN on CKD5, s/p HD with plan to continue TTHSat Quality Stroke Does the patient have a stroke diagnosis?: No VTE Prior VTE?: No VTE Risk Level:: Medical - moderate - high VTE Device Contraindication: Treatment Not Indicated VTE Drug Contraindication: N/A - Med Ordered
--- NOTE | 2024-03-10 19:47 | P.PNNP_ITS ---
Subjective Subjective Date of Service: 03/10/24 Interval history: seen and examined this morning; no further hematuria, CBI stopped 03/09; no overnight events; due HD tomorrow Physical Exam 2 Vital Signs: Vital Signs: Last Vital Signs Temp 96.9 F 03/10/24 15:27 Pulse 95 03/10/24 15:27 Resp 18 03/10/24 15:27 BP 139/63 03/10/24 15:27 Pulse Ox 93 03/10/24 17:00 O2 Del Method Room Air 03/10/24 17:00 O2 Flow Rate 2 03/06/24 19:21 BMI result Body Mass Index 30.2 Const: General: comfortable and no acute distress O rientation/consciousness: patient oriented x3 HEENT: Head: Yes normocephalic Mouth: Normal oral and palatal mucosa present Eyes: EOM: EOMs intact bilaterally Neck: Neck: Yes supple Resp: Auscultation: clear to auscultation bilaterally Cardio: Jugular venous distension: no JVD Rate: regular rate GI: Palpation (GI): Soft to palpation Auscultation: normal bowel sounds Neuro: General: patient oriented x3 and moves all extremities Objective Data Labs 03/09/24 19:21 03/09/24 11:13 Labs: Laboratory Results - last 24 hr 03/09/24 03/09/24 03/10/24 19:21 20:16 07:29 WBC 8.8 RBC 3.42 L Hgb 9.8 L Hct 28.6 L MCV 83.6 MCH 28.7 MCHC 34.3 RDW 14.8 Plt Count 115 L MPV 10.8 Immature Gran % (Auto) 1.1 H Neut % (Auto) 70.9 Lymph % (Auto) 15.8 L [place] % (Auto) 9.0 Eos % (Auto) 2.4 Baso % (Auto) 0.8 Lymph # (Auto) 1.4 [place] # (Auto) 0.8 Eos # (Auto) 0.2 Baso # (Auto) 0.1 Abs Immat Gran (auto) 0.10 H Absolute Neuts (auto) 6.2 Absolute Nucleated RBC 0.000 Nucleated RBC % (auto) 0.0 POC Glucose 196 H 101 03/10/24 03/10/24 11:09 15:53 WBC RBC Hgb Hct MCV MCH MCHC RDW Plt Count MPV Immature Gran % (Auto) Neut % (Auto) Lymph % (Auto) [place] % (Auto) Eos % (Auto) Baso % (Auto) Lymph # (Auto) [place] # (Auto) Eos # (Auto) Baso # (Auto) Abs Immat Gran (auto) Absolute Neuts (auto) Absolute Nucleated RBC Nucleated RBC % (auto) POC Glucose 255 H 111 Microbiology Microbiology Results: Microbiology 03/03/24 22:47 Blood - Venous Blood Culture - Final No growth after 5 days. 03/03/24 22:19 Blood - Venous Blood Culture - Final No growth after 5 days. 03/03/24 Unknown Urine clean catch - Urine stuart top Urine Culture - Final Procedures Date of Service Date of Service: 03/10/24 Assessment & Plan Assessment and plan (1) ESRD (end stage renal disease) on dialysis: Status: Acute Plan 58 yo F with a PMH of CKD5 who presented to [facility] ED with fatigue with worsening renal function and imaging studies concerning for metastatic cancer LORIN on CKD5 with metabolic acidosis; Now deemed ESRD Permacath place and dialysis initiated- Next HD tomorrow Bladder and possible renal mass concerning for metastatic cancer urology seen pt- bladder wall tumor resection 03/07/24, TURBT, right retrograde Off CBI post procedure for hematuria oncology follow up o/p for biopsy results Has an outpt HD spot in [facility] MWF 3 rd shift ( Tel [phone] Digital Sales Manager Maritza Casey RN) Can be discharged after HD tomorrow Progress Note: Quality Stroke Does the patient have a stroke diagnosis?: No
[2024-03-10 20:09] LABS: Glucose, Whole Blood 217 mg/dL (60-115)
[2024-03-10] MEDS: Atorvastatin Calcium 40 MG TABLET PO (21:31)
[2024-03-10] MEDS: Amitriptyline HCl 50 MG TABLET PO (21:31)
[2024-03-11 04:00] VITALS: BP 128/60; PULSE 86; RESP 16; TEMP 36; O2SAT 94
--- NOTE | 2024-03-11 06:33 | PC.NURSE ---
Patient transferred to dialysis by [facility] approx [phone]
[2024-03-11 10:49] VITALS: BP 132/61; PULSE 87; RESP 18; TEMP 36.6; O2SAT 98
[2024-03-11 10:50] LABS: Glucose, Whole Blood 145 mg/dL (60-115)
[2024-03-11 11:16] VITALS: BP 132/61; PULSE 87
[2024-03-11] MEDS: Ferrous Sulfate 324 MG TABLET.DR PO (11:16)
[2024-03-11] MEDS: Metoprolol Tartrate 25 MG TABLET PO (11:16)
[2024-03-11] MEDS: 0.9 % Sodium Chloride Flush 3 ML SYRINGE IVFLUSH (11:16)
[2024-03-11] MEDS: Cholecalciferol (Vitamin D3) 25 MCG TABLET 50 MCG PO (11:16)
[2024-03-11] MEDS: calcitrioL 0.25 MCG CAPSULE PO (11:16)
--- NOTE | 2024-03-11 13:01 | P.DS_ITS ---
DS: Providers Provider Date of Service: 03/11/24 Date of admission: 03/03/24 22:20 Date of discharge: 03/11/24 Primary care physician: Anne Talamantes DO Consults: 03/03/24 22:20 Consult to Nephrology Routine Consulting Provider: [facility] – [place] [place] Reason for consultation: LORIN on CKD 03/04/24 01:19 Consult to Hematology / Oncology Routine Consulting Provider: Estuardo Kenyon Reason for consultation: bladder mass 03/04/24 01:20 Consult to Urology Routine Consulting Provider: Nickolas Guerin Reason for consultation: bladder mass Attending physician on discharge: [facility] Discharging clinician: Madelin Quevedo DS: Diagnosis Discharge Diagnosis (1) ESRD (end stage renal disease) on dialysis: Status: Acute (2) Bladder cancer: Status: Acute DS: Summary Hospital Course Hospital Course: From H&P on the day of admission This is a 58-year-old female with pertinent history of CKD stage 5, cardiomyopathy with EF 20%, anemia due to CKD, secondary hyperparathyroidism, mood disorder, gastroesophageal reflux disease, insulin- dependent diabetes mellitus who presents to the emergency department for evaluation of abnormal labs. Patient states has been having fatigue, nausea that has been ongoing for 3 weeks. Also has been having dizziness and generaliz ed malaise. She further complains of right flank pain that has been ongoing for a while. Also has change in odor and color of urine with urinary urgency. Patient underwent blood work outpatient and found that her creatinine is elevated and was sent to the ER. No fever, chills, chest discomfort, palpitations, shortness of breath, changes in bowel habits. In the emergency department, urine concerning for UTI. Patient's creatinine noted to be around 10. Imaging concerning for bladder mass with additional mass in the upper collecting system of right kidney This is a 58-year-old female with pertinent history of CKD stage 5, cardiomyopathy with EF 20%, anemia due to CKD, secondary hyperparathyroidism, mood disorder, gastroesophageal reflux disease, insulin-dependent diabetes mellitus who presents to the emergency department for evaluation of abnormal labs. Patient states has been having fatigue, nausea that has been ongoing for 3 weeks. Also has been having dizziness and generalized malaise. She further complains of right flank pain that has been ongoing for a while. Also has change in odor and color of urine with urinary urgency. Patient underwent blood work outpatient and found that her creatinine is elevated and was sent to the ER. No fever, chills, chest discomfort, palpitations, shortness of breath, changes in bowel habits. In the emergency department, urine concerning for UTI. Patient's creatinine noted to be around 10. Imaging concerning for bladder mass with additional mass in the upper collecting system of right kidney LORIN on CKD5 with metabolic acidosis progressed to ESRD nephrology following>s/p permacath and dialysis initiation 03/07. Last inpatient dialysis 03/11. Plan for outpatient HD MWF in [place]. We will need outpatient follow-up with Nephrology Bladder mass concerning for metastatic cancer Seen by urology consult and underwent bladder wall tumor resection 03/07/24, TURBT, right retrograde. placed on CBI post procedure for hematuria. Clamped 03/08 and CBI stopped. tsai ultimately removed and passed voiding trial. Biopsy with high-grade papillary urothelial carcinoma, invasive into lamina propria - will need outpatient follow up with oncology Acute on chronic blood loss anemia s/p 1 unit 03/08 . H/H improved after transfusion and has remained stable UTI. Urine culture grew mixed michael. Completed course of IV ceftriaxone during hospitalization Thrombocytopenia. Chronic. Outpatient follow-up Time Attestation Discharge Coordination Time (in mins): 36 Quality: Safe Use of Opioids Does Pt have an Active Cancer Diagnosis on the Problem List?: No Quality: Stroke Does the patient have a stroke diagnosis?: No Physical Exam Vital Signs: Vital Signs: Last Vital Signs Temp 97.9 F 03/11/24 10:49 Pulse 87 03/11/24 11:16 Resp 18 03/11/24 10:49 BP 132/61 03/11/24 11:16 Pulse Ox 98 03/11/24 10:49 O2 Del Method Room Air 03/11/24 10:49 O2 Flow Rate 2 03/06/24 19:21 BMI result Body Mass Index 30.2 Const: Other: Constitutional-cooperative, comfortable, no acute distress, alert, oriented chest - permcath right chest wall Pulmonary lungs are clear to auscultation bilaterally no respiratory distress GI abdomen is soft, nondistended, nontender Tsai in place no hematuria, yellow urine Musculoskeletal-patient is able to move all 4 extremities spontaneously Neuro-grossly nonfocal DS: Data Data Completed and Pending Completed studies during hospitalization [Text1]: Pending at discharge 03/06/24 18:50 Surgical [PTH] Routine Labs on day of discharge: Laboratory Results - last 24 hr 03/10/24 03/10/24 03/11/24 15:53 20:02 10:46 POC Glucose 111 217 H 145 H Discharge Plan Discharge Anticipated Discharge Date/Time: 03/11/24 16:31 Patient Disposition: Home Health Service Discharge Diagnosis: Bladder tumor Hematuria CKD 5 progressing to end-stage renal disease, now requiring hemodialysis Referrals: [facility] [Other] - 1 Week Estuardo Kenyon MD [Physician] - 1 Week Rogerio Martinez MD [Physician] - 1 Week Anne Talamantes DO [Primary Care Provider] - 1 Week Discharge Medications: Continued insulin lispro 100 unit/mL insulin pen 8 - 18 unit subcut TID omeprazole 20 mg capsule,delayed release(DR/EC) 20 mg PO BID amitriptyline 50 mg tablet 50 mg PO BEDTIME Trulicity 1.5 mg/0.5 mL pen injector 1.5 mg subcut GORDON cholecalciferol (vitamin D3) [Vitamin D3] 50 mcg (2,000 unit) capsule 50 mcg PO QAM rosuvastatin 40 mg tablet 40 mg PO BEDTIME ferrous sulfate [FeroSul] 325 mg (65 mg iron) tablet 325 mg PO QPM metoprolol tartrate 25 mg tablet 25 mg PO BID calcitriol 0.25 mcg capsule 0.25 mcg PO DAILY 30 Days Qty: 30 3RF Changed insulin glargine [Lantus Solostar U-100 Insulin] 100 unit/mL (3 mL) insulin pen 10 unit subcut BEDTIME Qty: 15 0RF Held aspirin 81 mg tablet,delayed release (DR/EC) 81 mg PO QAM Hold Instructions: hold for one week No Action (DME) lancets [TRUEplus Lancets] 33 gauge misc See Rx Instructions .ROUTE .MEDSUPPLY Qty: 100 Rx Instructions: As directed (DME) pen needle, diabetic [Pentips] 32 gauge x 5/32 needle See Rx Instructions .ROUTE DIRECTED Qty: 1200 Rx Instructions: As directed Discharge Orders: Discharge Order (Routine); Ordered 03/11/24 Ordered By: Madelin Quevedo Activity on Discharge: As tolerated Stand Alone Forms: Patient Portal Discharge page Print Language: [place] Care Plan Goals: See below Health Concerns: Bladder mass/bladder cancer Hematuria Progression to ESRD, initiated on hemodialysis Plan of Treatment: biopsy with papillary urothelial carcinoma - will need outpatient follow-up with Oncology Continue Outpatient dialysis Wednesday schedule at [facility], 3rd shift call to schedule follow up with PCP, urology Assessment: See discharge summary Discharge Date/Time: 03/11/24 19:00
[2024-03-11 15:26] VITALS: BP 120/62; PULSE 95; RESP 16; TEMP 36.1; O2SAT 97
[2024-03-11 16:26] LABS: Glucose, Whole Blood 178 mg/dL (60-115)
--- NOTE | 2024-03-11 16:30 | PC.NURSE ---
Shah removed at 11am. Voided 100cc at 1630. Bladder scanned PVR 1cc.
--- NOTE | 2024-03-11 16:49 | W.MHC.F2F ---
Service Date Service Date: 03/11/24 Encounter Date of encounter: 03/11/24 Reasons for Services Signs and symptoms assessed: needs home PT for gait training, therapeutic activity/exercises, safety, balance Reason for occupational therapy: home safety and mobility, therapeutic exercises and gait/transfer training MD Overseeing Care: Anne Talamantes Homebound: Leaving the home is medically contraindicated at this time without the asist of a device and/or another person due th the listed conditions above and below. Reason homebound: unsteady gait / fall risk Certification: Based on the above findings, I certify that this patient is confined to the home and needs intermittent group home care, physical therapy and/or speech therapy, or continues to need occupational therapy. The patient is under my care, and I have initiated the establishment of the plan of care. The patient will be followed by a physician who will periodically review the plan of care. Time Spent With Patient Time: Total time managing care of this patient today ____ minutes.
[2024-03-11 17:00] VITALS: O2SAT 98
[2024-03-11] MEDS: Omeprazole 20 MG CAPSULE.DR PO (17:40)
--- NOTE | 2024-03-11 19:23 | PC.NURSE ---
Discharge instructions explained to patient with medical interpreter. Pt set up for dialysis in [place]. Pt stated thats too far. Explained to pt that this is the only dialysis center available currently and the case management note stated that her sister would be able to transport pt there. Pt was told that she needed to stay overnight if dialysis would be an issue. Pt states she will go home. Has been here for 10 days and doesn't want to stay. Provider Madelin ARGUELLO notified.
--- NOTE | 2024-03-12 08:54 | MHC.CM.PN ---
PT DCD [facility] NOTIFIED OF DC
== END 2024-03-11 19:00 | disposition home health service (06) | DRG 446 ==
LOC: HO.ED 21:59 → HO.EDOVER 22:25 → HO.S3 03-04 18:19
PROVIDERS: Family Medicine; Internal Medicine Hypertension Specialist; Nurse Practitioner Acute Care; Nurse Practitioner Family; Physician Assistant; Physician Assistant Surgical; Urology; Admitting Provider Student in an Organized Health Care Education/Training Program; Emergency Provider Emergency Medicine; PCP Family Medicine; Visit Provider Physician Assistant Medical
PROC: 0T5B8ZZ Destruction of Bladder, Via Natural or Artificial Opening Endoscopic (ICD-10-PCS; principal; 2024-03-06 17:00)
DX: C67.2 Malignant neoplasm of lateral wall of bladder (principal); C79.01 Secondary malignant neoplasm of right kidney and renal pelvis; N17.9 Acute kidney failure, unspecified; E87.20 Acidosis, unspecified; I13.2 Hypertensive heart and chronic kidney disease with heart failure and with stage 5 chronic kidney disease, or end stage renal disease; D63.1 Anemia in chronic kidney disease; E83.51 Hypocalcemia; I50.22 Chronic systolic (congestive) heart failure; N18.6 End stage renal disease; D69.6 Thrombocytopenia, unspecified; E11.649 Type 2 diabetes mellitus with hypoglycemia without coma; F39 Unspecified mood [affective] disorder; I42.9 Cardiomyopathy, unspecified; E11.22 Type 2 diabetes mellitus with diabetic chronic kidney disease; N25.81 Secondary hyperparathyroidism of renal origin; R31.9 Hematuria, unspecified; N39.0 Urinary tract infection, site not specified; Z99.2 Dependence on renal dialysis; Z20.822 Contact with and (suspected) exposure to COVID-19; Z95.0 Presence of cardiac pacemaker; Z79.4 Long term (current) use of insulin; Z79.82 Long term (current) use of aspirin; Z79.85 Long-term (current) use of injectable non-insulin antidiabetic drugs; Z79.899 Other long term (current) drug therapy
CPT/HCPCS: 0241U; 36415; 36558; 71045; 74176; 76937; 80048; 81001; 82947; 83605; 83970; 85014; 85018; 85025; 85027; 86704; 86706; 86850; 86900; 86901; 86905; 86923; 87040; 87086; 87340; 88112; 88307; 90999; 93005; 97162; 99285; C1750; C1758; C1769; J0696; J1100; J1644; J2250; J2405; J2704; J3010; P9016; Q9967

== ENCOUNTER → 2024-03-03 20:21 | Outpatient (BNV) | payer MEDICAID, SELFPAY | PROVIDERS: Admitting Provider Student in an Organized Health Care Education/Training Program; Emergency Provider Emergency Medicine; PCP Family Medicine; Visit Provider Internal Medicine Cardiovascular Disease | DX: R94.31 Abnormal electrocardiogram [ECG] [EKG] (principal) | CPT/HCPCS: 93010 ==

== ENCOUNTER 2024-03-03 22:20 | Outpatient (BNV) | payer MEDICAID, SELFPAY | END 2024-03-07 09:00 | PROVIDERS: Admitting Provider Student in an Organized Health Care Education/Training Program; Emergency Provider Emergency Medicine; PCP Family Medicine; Visit Provider Physician Assistant Surgical | DX: N18.6 End stage renal disease (principal) | CPT/HCPCS: 36558; 76937 ==

== ENCOUNTER → 2024-03-03 22:20 | Outpatient (BNV) | payer MEDICAID, SELFPAY | PROVIDERS: Admitting Provider Student in an Organized Health Care Education/Training Program; Emergency Provider Emergency Medicine; PCP Family Medicine; Visit Provider Internal Medicine Hypertension Specialist | DX: E11.22 Type 2 diabetes mellitus with diabetic chronic kidney disease (principal); N18.5 Chronic kidney disease, stage 5; Z99.2 Dependence on renal dialysis; N32.89 Other specified disorders of bladder | CPT/HCPCS: 90935; 99223; 99232 ==

== ENCOUNTER → 2024-03-03 22:20 | Outpatient (BNV) | payer MEDICAID, SELFPAY | PROVIDERS: Admitting Provider Student in an Organized Health Care Education/Training Program; Emergency Provider Emergency Medicine; PCP Family Medicine; Visit Provider Urology | DX: R31.9 Hematuria, unspecified (principal); C67.2 Malignant neoplasm of lateral wall of bladder | CPT/HCPCS: 52240; 99222; 99232 ==

== ENCOUNTER → 2024-03-03 22:20 | Outpatient (BNV) | payer MEDICAID, SELFPAY | PROVIDERS: Admitting Provider Student in an Organized Health Care Education/Training Program; Emergency Provider Emergency Medicine; PCP Family Medicine; Visit Provider Student in an Organized Health Care Education/Training Program | DX: N18.6 End stage renal disease (principal); Z99.2 Dependence on renal dialysis; C67.9 Malignant neoplasm of bladder, unspecified | CPT/HCPCS: 99223; 99232; 99233; 99239; G0180 ==

== ENCOUNTER → 2024-03-17 09:51 | Outpatient (BNV) | payer MEDICAID, SELFPAY | PROVIDERS: PCP Family Medicine; Visit Provider Internal Medicine | DX: C67.9 Malignant neoplasm of bladder, unspecified (principal) | CPT/HCPCS: 99205; 99213; 99214; 99215 ==

== ENCOUNTER 2024-03-20 12:30 | Emergency (ER) | payer MEDICAID, SELFPAY ==
--- NOTE | ~2024-03-20 | CT_ITS ---
EXAMINATION: CT HEAD WITHOUT CONTRAST CT CERVICAL SPINE WITHOUT CONTRAST CLINICAL INFORMATION: Status post fall with head and neck trauma COMPARISON: None TECHNIQUE: CT of the head and cervical spine were performed without intravenous contrast. Multiplanar reformats were rendered and reviewed. This CT examination was performed using dose optimization techniques as appropriate, variously including the following: *Automated exposure control *Adjustment of mA and/or kV according to patient size (this includes techniques or standardized protocols for targeted exams where dose is matched to indication/reason for exam; i.e. extremities or head) *Use of iterative reconstruction technique DLP: 747 mGy-cm. FINDINGS: CT head: No intracranial hemorrhage, large infarction, or mass lesion is seen. No extra-axial collection is appreciated. The ventricles are normal in size and configuration without evidence of hydrocephalus. The visualized paranasal sinuses and mastoid air cells are clear. CT cervical spine: Straightening of cervical lordosis with multilevel degenerative changes, there is narrowing of C3-C4, C4-C5, C5-C6 intervertebral disc spaces and uncovertebral osteophytosis . There is no evidence of spinal canal stenosis or fractures The craniocervical junction is normal. The vertebral body heights are maintained. No cervical spine fracture is seen. There is tubular high attenuation structure corresponding to jugular vein adjacent to the sternocleidomastoid muscle possibly hematoma, correlate with ultrasound. The partially imaged lung apices are clear. CT/CT cervical spine wo IV con IMPRESSION: CT HEAD: No acute intracranial finding. CT CERVICAL SPINE: 1. No cervical spine fracture or traumatic malalignment identified. 2. Multilevel degenerative changes. 3. Tubular high attenuation structure corresponding to jugular vein adjacent to the sternocleidomastoid muscle possibly hematoma, correlate with ultrasound.
--- NOTE | ~2024-03-20 | CT_ITS ---
EXAMINATION: CT HEAD WITHOUT CONTRAST CT CERVICAL SPINE WITHOUT CONTRAST CLINICAL INFORMATION: Status post fall with head and neck trauma COMPARISON: None TECHNIQUE: CT of the head and cervical spine were performed without intravenous contrast. Multiplanar reformats were rendered and reviewed. This CT examination was performed using dose optimization techniques as appropriate, variously including the following: *Automated exposure control *Adjustment of mA and/or kV according to patient size (this includes techniques or standardized protocols for targeted exams where dose is matched to indication/reason for exam; i.e. extremities or head) *Use of iterative reconstruction technique DLP: 747 mGy-cm. FINDINGS: CT head: No intracranial hemorrhage, large infarction, or mass lesion is seen. No extra-axial collection is appreciated. The ventricles are normal in size and configuration without evidence of hydrocephalus. The visualized paranasal sinuses and mastoid air cells are clear. CT cervical spine: Straightening of cervical lordosis with multilevel degenerative changes, there is narrowing of C3-C4, C4-C5, C5-C6 intervertebral disc spaces and uncovertebral osteophytosis . There is no evidence of spinal canal stenosis or fractures The craniocervical junction is normal. The vertebral body heights are maintained. No cervical spine fracture is seen. There is tubular high attenuation structure corresponding to jugular vein adjacent to the sternocleidomastoid muscle possibly hematoma, correlate with ultrasound. The partially imaged lung apices are clear. CT/CT head/brain wo IV con IMPRESSION: CT HEAD: No acute intracranial finding. CT CERVICAL SPINE: 1. No cervical spine fracture or traumatic malalignment identified. 2. Multilevel degenerative changes. 3. Tubular high attenuation structure corresponding to jugular vein adjacent to the sternocleidomastoid muscle possibly hematoma, correlate with ultrasound.
[2024-03-20 13:26] VITALS: BP 123/53; PULSE 75; RESP 20; TEMP 35.8; O2SAT 100; BMI 30.2
--- NOTE | 2024-03-20 13:26 | ED_ITS ---
HPI - Head Injury General Chief complaint: Dizziness Stated complaint: Fall/Head inj dizziness Time Seen by Provider: 03/20/24 18:18 Source: patient and family Mode of arrival: ambulatory Limitations: no limitations History of Present Illness ED Provider: Dr. Cely Priest HPI Narrative: Patient comes to the emergency room complaining of dizziness. Patient states that for the last few weeks, she has been feeling lightheaded when she walks. This time, patient walked all the way up the stairs to his room, felt dizzy and then fell hitting her head against the wall. This happened approximately 7 hours ago. Patient denies taking any blood thinners, denies losing consciousness. No dizziness or chest pain at this time. Patient states that she did not go to dialysis the patient was not feeling well and she was here in the hospital waiting to be seen. Of note, couple of weeks ago, patient was recently diagnosed with bladder cancer. Fair radiologist reports from 3 days ago, patient is not a good candidate for chemoradiation or chemotherapy, only immunotherapy may be an option. Related Data Home Medications ?Medication ?Instructions ?Recorded ?Confirmed amitriptyline 50 mg tablet 50 mg PO BEDTIME 10/22/23 03/04/24 aspirin 81 mg tablet,delayed 81 mg PO QAM 10/22/23 03/04/24 release cholecalciferol (vitamin D3) 50 50 mcg PO QAM 10/22/23 03/04/24 mcg (2,000 unit) capsule (Vitamin D3) dulaglutide 1.5 mg/0.5 mL 1.5 mg subcut GORDON 10/22/23 03/04/24 subcutaneous pen injector (Trulicity) insulin lispro 100 unit/mL 8 - 18 unit subcut TID 10/22/23 03/04/24 subcutaneous pen lancets 33 gauge (TRUEplus Lancets) #100 ea 10/22/23 01/20/24 omeprazole 20 mg capsule,delayed 20 mg PO BID 10/22/23 03/04/24 release pen needle, diabetic 32 gauge x #1,200 ea 10/22/23 01/20/24 (Pentips) rosuvastatin 40 mg tablet 40 mg PO BEDTIME 10/22/23 03/04/24 metoprolol tartrate 25 mg tablet 25 mg PO BID 02/02/24 03/04/24 dulaglutide 1.5 mg/0.5 mL mg subcut QWEEK 03/17/24 subcutaneous pen injector (Trulicity) tramadol 25 mg tablet mg 03/17/24 03/17/24 Previous Rx's ?Medication ?Instructions ?Recorded calcitriol 0.25 mcg capsule 0.25 mcg PO DAILY 30 days #30 caps 02/02/24 insulin glargine 100 unit/mL (3 10 unit (0.1 mL) subcut BEDTIME 03/11/24 mL) subcutaneous pen (Lantus #15 mL Solostar U-100 Insulin) Allergies Allergy/AdvReac Type Severity Reaction Status Date / Time No Known Allergies Allergy Verified 03/20/24 13:27 [No Known Allergies*] Review of Systems 2 Review of Systems: Constitutional : No Weight loss, No Fever, No Chills, No Night Sweats, No Fatigue, No Malaise ENT/Mouth : No Hearing loss, No Ear Pain, No Nasal Congestion, No Sinus Pain, No Hoarseness, No sore throat, No Rhinorrhea, No Swallowing Difficulty Eyes: No Eye Pain, No Swelling, No Redness, No Foreign Body, No Discharge, No Vision Changes Cardiovascular : No Chest Pain, No SOB, No Dyspnea on Exertion, No Orthopnea, No Edema, No Palpitations Respiratory : No Cough, No Sputum, No Wheezing, No Smoke Exposure, No Dyspnea Gastrointestinal : No Nausea, No Vomiting, No Diarrhea, No Constipation, No abdominal Pain, complaining of black stool for over 1 year. Genitourinary : no irregular bleeding, No Dysuria, No Urinary Frequency, No Hematuria, No Urinary Incontinence, No Urgency, No Flank Pain, No Urinary Flow Changes, No Hesitancy Musculoskeletal : No joint pain, No Myalgias, No Joint Swelling Skin : No Skin Lesions, No rash Neuro : No Weakness, No Numbness, No Paresthesias, No Loss of Consciousness, no headache, complaining of multiple episodes of dizziness especially after walking Psych : No Anxiety/Panic, No Depression, No SI/HI/AH/VH, No Social Issues, Heme/Lymph: No Bruising, No Bleeding,No Lymphadenopathy Endocrine : No Polyuria, No Polydipsia, No Temperature Intolerance PMFSH Past Medical History Medical History Mass of bladder Bladder mass Pacemaker History of adenomatous polyp of colon Cardiomyopathy Chronic kidney disease, stage 4 (severe) Hypertension Type 2 diabetes mellitus with diabetic nephropathy Social History Social History (Updated 03/17/24 @ 10:13 by Joyce Baum) Household Members: Children Housing: Unknown / Unable to assess Do you presently have visiting nurse or other home services: No Alcohol intake: never Comment: counts correct Patient Tobacco Use Status: Never used Tobacco service: No Current occupational status: disabled Gender identity: Female Physical Exam 2 Vital Signs: Vital Signs: Last Vital Signs Temp 96.4 F L 03/20/24 13:26 Pulse 91 03/20/24 20:20 Resp 20 03/20/24 13:26 BP 132/54 L 03/20/24 20:20 Pulse Ox 100 03/20/24 13:26 O2 Del Method Room Air 03/20/24 13:26 BMI result Body Mass Index 30.2 Const: Other: Appearance: Alert. Oriented X3. No acute distress. Eyes: Pupils equal, round and reactive to light. ENT: Pharynx normal. Neck: Normal inspection. Neck supple. No lymph nodes noted. No crepitus CVS: Normal heart rate and rhythm. Pulses normal. Normal S1 and S2 Respiratory: No respiratory distress. Breath sounds normal. No Wheezing. No rales Abdomen: Soft and nontender. No rigidity. No distention. Skin: Skin warm and dry. Pale skin color. Normal skin turgor. Extremities: No lower extremity edema. No Lacerations. No Rash Neuro: Oriented X 3. No motor deficit. No sensory deficit. Moving all extremities. No slurred speech. CN 2 through 12 grossly intact Psych: calm, cooperative, normal affect Course Course Course Narrative: This is a Rapid Medical Exam performed in triage by Marisabel Bray PA-C. Full HPI, ROS and PE to be performed by primary ED provider. 58 year-old F w/ PMHx CKD on HD (M/W/F), HTN, cardiomyopathy, anemia, Cancer Stage 4, presenting to the ED c/o dizziness & fall with head strike 1hr [employer]. Hit head on wall. Denies taking AC. denies LOC. also reports fall on Wednesday, has been having low blood pressure with dialysis. Did NOT have HD today (@4pm, gets in [place]). Report multiple cancerous tumors that will lose blood not on chemo or radiation at present. Admits to black stool x 1 year PE: pale, in wheelchair, nontoxic appearing. Plan: EKG, labs, UA, CT's Reevaluation(s) Reevaluation #1: Patient hydrated feeling better will dc home Time: 23:39 Medications Administered Discontinued Medications Generic Name Dose Route Start Last Admin Trade Name Gino PRN Reason Stop Dose Admin Sodium Chloride 1,000 mls @ 999 mls/hr 03/20/24 21:07 03/20/24 21:31 Ns IVCONT 03/20/24 22:07 999 mls/hr .Q1H1M ONE Administration Medical Decision Making Medical Decision Making [facility] Narrative: -my interpretation of head CT: No intracranial bleed, cervical spine CT, no fractures or subluxation. -patient is neurologically intact -patient's blood pressure stable, 132/54, heart rate 51, oxygen saturation 100% on room air -my interpretation of labs, patient has anemia, chronic, no need for transfusion at this time, patient's creatinine 7.87 which is chronic for the patient as well. At this time, no need for emergent dialysis. -orthostatic vitals were positive, 21 mmHg drop from sitting to standing. Patient receiving IV fluids. Orthostatic vital signs to be repeated after IV fluids. -patient is dizziness likely secondary to orthostatic hypotension. -sign-out given to my colleague Dr. Peñaloza Differential Diagnosis Differential Diagnoses: The differential diagnosis associated with the presentation includes (Orthostatic hypotension, vertigo, BPPV) Admission/Observation Consideration of admission/observation: Escalation of care including admission/observation considered (Given patient's comorbidities and symptoms, observation was considered) Lab Data [facility] Lab Attestation statement: I reviewed the patient's lab results. 03/20/24 18:59 03/20/24 15:43 Labs: Lab Results 03/20/24 03/20/24 03/20/24 Range/Units 15:43 18:59 19:40 WBC 8.6 (4.8-10.8) X10*3/uL RBC 2.91 L (4.20-5.50) X10*6/uL Hgb 8.2 L (12.0-16.0) g/dl Hct 25.4 L (37.0-47.0) % MCV 87.3 (80.0-98.0) fL MCH 28.2 (27.0-33.0) pg MCHC 32.3 (31.0-35.0) g/dl RDW 14.2 (11.0-16.0) % Plt Count 128 L (160-400) X10*3/uL MPV 10.0 (9.4-12.3) fL Immature Gran % (Auto) 0.7 H (0.0-0.4) % Neut % (Auto) 75.6 H (45-73) % Lymph % (Auto) 12.4 L (20-40) % [place] % (Auto) 8.8 (2-11) % Eos % (Auto) 2.0 (0-4) % Baso % (Auto) 0.5 (0-2) % Lymph # (Auto) 1.1 L (1.2-4.9) X10*3/uL [place] # (Auto) 0.8 (0.1-1.2) X10*3/uL Eos # (Auto) 0.2 (0.0-0.4) X10*3/uL Baso # (Auto) 0.0 (0.0-0.2) X10*3/uL Abs Immat Gran (auto) 0.06 H (0.00-0.03) X10*3/uL Absolute Neuts (auto) 6.5 (2.0-8.3) x10*3/uL Absolute Nucleated RBC 0.000 (0.0-0.012) X10*3/uL Nucleated RBC % (auto) 0.0 (0.0-0.2) /100WBC PT 12.0 (11.1-13.3) SEC INR 1.0 (0.9-1.1) Sodium 134 L (135-145) mmol/L Potassium 3.8 (3.3-5.1) mmol/L Chloride 99 (96-108) mmol/L Carbon Dioxide 21 L (22-29) mmol/L Anion Gap 18 (12-20) BUN 48 H (9-16) mg/dL Creatinine 7.68 H* (0.5-1.4) mg/dL Estim Creat Clear Calc 7.1 Estimated GFR 5 Random Glucose 69 (60-115) mg/dL Calcium 9.2 D (8.4-10.2) mg/dL Magnesium 2.1 (1.6-2.6) mg/dL Total Bilirubin 0.4 (0.0-1.0) mg/dL Direct Bilirubin 0.2 (0.0-0.5) mg/dL AST 19 (5-31) U/L ALT 12 (0-31) U/L Alkaline Phosphatase 95 (39-117) U/L Troponin I High Sens 14.5 (<3.5-17.0) ng/L Total Protein 7.7 (6.5-8.0) g/dL Albumin 3.2 L (3.5-5.0) g/dL Stool Occult Blood NEGATIVE (NEGATIVE) Blood Type O Negative Antibody Screen POSITIVE Antibody Identification Anti-Jkb Crossmatch See Detail Crossmatch (AHG) See Detail Blood Bank Comment Technical Independent Interpretation I performed an independent interpretation of an: CT Scan Radiology Impression Discussion of test interpretation with radiology: I have reviewed the radiologist's reading. Radiologist Impression: CT head: No intracranial hemorrhage, large infarction, or mass lesion is seen. No extra-axial collection is appreciated. The ventricles are normal in size and configuration without evidence of hydrocephalus. The visualized paranasal sinuses and mastoid air cells are clear. CT cervical spine: Straightening of cervical lordosis with multilevel degenerative changes, there is narrowing of C3-C4, C4-C5, C5-C6 intervertebral disc spaces and uncovertebral osteophytosis . There is no evidence of spinal canal stenosis or fractures The craniocervical junction is normal. The vertebral body heights are maintained. No cervical spine fracture is seen. There is tubular high attenuation structure corresponding to jugular vein adjacent to the sternocleidomastoid muscle possibly hematoma, correlate with ultrasound. The partially imaged lung apices are clear. CT/CT head/brain wo IV con IMPRESSION: CT HEAD: No acute intracranial finding. CT CERVICAL SPINE: 1. No cervical spine fracture or traumatic malalignment identified. 2. Multilevel degenerative changes. 3. Tubular high attenuation structure corresponding to jugular vein adjacent to the sternocleidomastoid muscle possibly hematoma, correlate with ultrasound. Critical Care Time Critical Care Time Critical Care Time: Yes Total Critical Care Time: 35 Attestation: I have personally provided critical care time. Time includes review of lab data, radiology results, discussion with consultants, and monitoring for potential decompensation. Intervention performed as documented. Discharge Plan Discharge Clinical Impression: Orthostatic hypotension Patient Disposition: Still a Patient Prescriptions: No Action insulin glargine [Lantus Solostar U-100 Insulin] 100 unit/mL (3 mL) insulin pen 10 unit subcut BEDTIME Qty: 15 0RF Trulicity 1.5 mg/0.5 mL pen injector subcut QWEEK tramadol 25 mg Tablet (DME) lancets [TRUEplus Lancets] 33 gauge misc See Rx Instructions .ROUTE .MEDSUPPLY Qty: 100 Rx Instructions: As directed (DME) pen needle, diabetic [Pentips] 32 gauge x 5/32 needle See Rx Instructions .ROUTE DIRECTED Qty: 1200 Rx Instructions: As directed insulin lispro 100 unit/mL insulin pen 8 - 18 unit subcut TID omeprazole 20 mg capsule,delayed release(DR/EC) 20 mg PO BID amitriptyline 50 mg tablet 50 mg PO BEDTIME Trulicity 1.5 mg/0.5 mL pen injector 1.5 mg subcut GORDON cholecalciferol (vitamin D3) [Vitamin D3] 50 mcg (2,000 unit) capsule 50 mcg PO QAM rosuvastatin 40 mg tablet 40 mg PO BEDTIME aspirin 81 mg tablet,delayed release (DR/EC) 81 mg PO QAM Hold Instructions: hold for one week metoprolol tartrate 25 mg tablet 25 mg PO BID calcitriol 0.25 mcg capsule 0.25 mcg PO DAILY 30 Days Qty: 30 3RF Print Language: Czech
--- NOTE | 2024-03-20 13:30 | ECG_ITS ---
Test Reason : DIZZINESS Blood Pressure : / mmHG Vent. Rate : 077 BPM Atrial Rate : 077 BPM P-R Int : 136 ms QRS Dur : 134 ms QT Int : 416 ms P-R-T Axes : 058 -17 119 degrees QTc Int : 470 ms Atrial-sensed ventricular-paced rhythm Abnormal ECG When compared with ECG of 03-MAR-2024 20:56, Vent. rate has decreased BY 16 BPM Referred By: Marisabel Bray Electronically Signed By:PATY FAUSTIN MD
[2024-03-20 16:11] LABS: Troponin-I High Sensitivity 14.5 ng/L (<3.5-17.0)
[2024-03-20 19:02] LABS: MANUAL DIFF FLAG NO
[2024-03-20 19:06] LABS: Alanine Aminotransferase 12 U/L (0-31); Albumin Level 3.2 g/dL (3.5-5.0); Alkaline Phosphatase 95 U/L (39-117); Anion Gap 18 (12-20); Aspartate Amino Transferase 19 U/L (5-31); Bilirubin Direct 0.2 mg/dL (0.0-0.5); Bilirubin Total 0.4 mg/dL (0.0-1.0); Blood Urea Nitrogen 48 mg/dL (9-16); Calcium 9.2 mg/dL (8.4-10.2); Carbon Dioxide 21 mmol/L (22-29); Chloride 99 mmol/L (96-108); Creatinine Clr Calc Pharmacy 7.1; Estimated Glomerular Filt Rate 5; Glucose Random 69 mg/dL (60-115); Magnesium 2.1 mg/dL (1.6-2.6); Potassium 3.8 mmol/L (3.3-5.1); Sodium 134 mmol/L (135-145); Total Protein 7.7 g/dL (6.5-8.0)
[2024-03-20 19:12] LABS: Basophils Percent Auto 0.5 % (0-2); Eosinophils Absolute Auto 0.2 X10*3/uL (0.0-0.4); Hematocrit 25.4 % (37.0-47.0); Hemoglobin 8.2 g/dl (12.0-16.0); Imm Gran Abs Auto 0.06 X10*3/uL (0.00-0.03); Imm Gran Pct Auto 0.7 % (0.0-0.4); Lymphocytes Absolute Auto 1.1 X10*3/uL (1.2-4.9); Lymphocytes Percent Auto 12.4 % (20-40); Mean Corpuscular HGB Conc 32.3 g/dl (31.0-35.0); Mean Corpuscular Hemoglobin 28.2 pg (27.0-33.0); Mean Corpuscular Volume 87.3 fL (80.0-98.0); Monocytes Absolute Auto 0.8 X10*3/uL (0.1-1.2); Monocytes Percent Auto 8.8 % (2-11); Neutrophils Absolute Auto 6.5 x10*3/uL (2.0-8.3); Neutrophils Percent Auto 75.6 % (45-73); Platelet Count 128 X10*3/uL (160-400); Red Blood Count 2.91 X10*6/uL (4.20-5.50); Red Cell Distribution Width 14.2 % (11.0-16.0); White Blood Count 8.6 X10*3/uL (4.8-10.8)
[2024-03-20 20:06] LABS: OBS1 NEGATIVE (NEGATIVE)
[2024-03-20 20:07] LABS: OBS Int Ctl Valid YES
[2024-03-20 20:16] VITALS: BP 157/71; PULSE 86
[2024-03-20 20:18] VITALS: BP 153/56; PULSE 89
[2024-03-20 20:20] VITALS: BP 132/54; PULSE 91
[2024-03-20] MEDS: 0.9 % Sodium Chloride 1,000 ML 999 ML IVCONT (21:31)
[2024-03-20 23:55] VITALS: BP 145/61; PULSE 86
[2024-03-20 23:56] VITALS: BP 127/46; BP 140/60; PULSE 91
[2024-03-21 00:38] VITALS: BP 154/64; PULSE 89; RESP 15; TEMP 36.6; O2SAT 96
[2024-03-21 00:44] VITALS: BP 154/64; PULSE 89; RESP 15; TEMP 36.6; O2SAT 96
== END 2024-03-21 00:45 | disposition home or self-care (01) ==
PROVIDERS: Physician Assistant; Emergency Provider Emergency Medicine; PCP Family Medicine
DX: I95.1 Orthostatic hypotension (principal); R42 Dizziness and giddiness; R11.0 Nausea; R94.31 Abnormal electrocardiogram [ECG] [EKG]; R51.9 Headache, unspecified; M54.2 Cervicalgia; Z79.899 Other long term (current) drug therapy
CPT/HCPCS: 36415; 70450; 72125; 80048; 80076; 82272; 83735; 84484; 85025; 85610; 86850; 86870; 86880; 86900; 86901; 86902; 86920; 86922; 93005; 96360; 96361; 99285

== ENCOUNTER → 2024-03-20 13:30 | Outpatient (BNV) | payer MEDICAID, SELFPAY | PROVIDERS: Emergency Provider Emergency Medicine; PCP Family Medicine; Visit Provider Internal Medicine Cardiovascular Disease | DX: R94.31 Abnormal electrocardiogram [ECG] [EKG] (principal) | CPT/HCPCS: 93010 ==

== ENCOUNTER 2024-04-07 17:23 | Inpatient (IN) | payer MEDICAID, SELFPAY ==
--- NOTE | ~2024-04-07 | XR_ITS ---
EXAMINATION: XR CHEST CLINICAL INFORMATION: Status post permanent catheter placement COMPARISON: 03/03/2024 and 04/06/2024 TECHNIQUE: Frontal view of the chest was obtained. FINDINGS: There is newly placed right jugular dual-lumen hemodialysis catheter with the tip over the SVC. The position of battery of pacemaker is stable, with leads seen over the right atrium, ventricle and coronary sinus. Lungs are clear and cardiomediastinal silhouette is normal. XR/XR chest 1V IMPRESSION: Well-positioned hemodialysis catheter.
--- NOTE | ~2024-04-07 | IR_ITS ---
CLINICAL HISTORY: Poor functioning permacath PROCEDURES: 1. Replacement of a 14.5 fr 27 cm tunneled, dual-lumen hemodialysis catheter. Clinician: Juan Biggs PA-C MEDICATIONS: -Fentanyl 25 mcg, Lidocaine 1% 10 mL SQ. -Antibiotics: Ancef -For additional details, please see nursing flowsheet. COMPLICATIONS: None. ESTIMATED BLOOD LOSS: <5 ml SPECIMENS: None FLUOROSCOPY TIME: 1.1 min PROCEDURE NOTE: The procedure, risks, benefits, and alternatives were carefully explained to patient, and written informed consent was obtained. The patient was placed supine on the fluoroscopy table. A timeout was performed. The right neck and chest was prepped and draped in usual sterile fashion. Local anesthesia was administered to the right chest catheter site with lidocaine. The catheter was retracted in order to dislodge the cuff from the chest wall. Catheter was cut, and a 0.035 stiff Glidewire was inserted through the catheter and advanced into the IVC. The permacath was removed over the wire. A new 27 cm permacath was inserted over the wire and advanced into the right atrium. The Glidewire was then removed. The catheter was tested, flushed, and sutured to the skin with its tip in the right atrium. A permanent fluoroscopic image of the chest was saved to PACS. The catheter ports were packed with heparin per routine protocol. The patient was stable after the procedure and was transferred to the post anesthesia care unit. FINDINGS: 1. Replacement of a tunneled, dual-lumen hemodialysis catheter as above. 2. Catheter flushes and aspirates very well with a 10 mL syringe. No pneumothorax. IR/IR cvc replace central tunnel IMPRESSION: Replacement of a tunneled hemodialysis catheter in the right internal jugular vein. PLAN: -The catheter may be used immediately. This procedure was performed by Juan Biggs PA-C, and directly supervised by Dr. Contreras.
[2024-04-07 17:39] VITALS: BP 131/51; PULSE 77; RESP 20; TEMP 36.6; O2SAT 100; BMI 28.3
--- NOTE | 2024-04-07 17:40 | ED_ITS ---
HPI - General Adult General Chief complaint: General Medical Stated complaint: sent from dialysis, catheter not working? Time Seen by Provider: 04/07/24 22:13 Source: patient Mode of arrival: ambulatory Limitations: no limitations History of Present Illness ED Provider: Dr. Cely Priest HPI narrative: Patient comes to the emergency room requesting to have PermCath placed. According to the patient, she was in dialysis earlier today, her PermCath was not working and her family day care worker asked her to come to the emergency room to get a new PermCath and then to get dialysis. Patient states that she has no chest pain or shortness of breath, feels well otherwise. Related Data Home Medications ?Medication ?Instructions ?Recorded ?Confirmed amitriptyline 50 mg tablet 50 mg PO BEDTIME 10/22/23 03/04/24 aspirin 81 mg tablet,delayed 81 mg PO QAM 10/22/23 03/04/24 release cholecalciferol (vitamin D3) 50 50 mcg PO QAM 10/22/23 03/04/24 mcg (2,000 unit) capsule (Vitamin D3) dulaglutide 1.5 mg/0.5 mL 1.5 mg subcut GORDON 10/22/23 03/04/24 subcutaneous pen injector (Trulicity) insulin lispro 100 unit/mL 8 - 18 unit subcut TID 10/22/23 03/04/24 subcutaneous pen lancets 33 gauge (TRUEplus Lancets) #100 ea 10/22/23 01/20/24 omeprazole 20 mg capsule,delayed 20 mg PO BID 10/22/23 03/04/24 release pen needle, diabetic 32 gauge x #1,200 ea 10/22/23 01/20/24/32 (Pentips) rosuvastatin 40 mg tablet 40 mg PO BEDTIME 10/22/23 03/04/24 metoprolol tartrate 25 mg tablet 25 mg PO BID 02/02/24 03/04/24 dulaglutide 1.5 mg/0.5 mL mg subcut QWEEK 03/17/24 subcutaneous pen injector (Trulicity) tramadol 25 mg tablet mg 03/17/24 03/17/24 Previous Rx's ?Medication ?Instructions ?Recorded calcitriol 0.25 mcg capsule 0.25 mcg PO DAILY 30 days #30 caps 02/02/24 insulin glargine 100 unit/mL (3 10 unit (0.1 mL) subcut BEDTIME 03/11/24 mL) subcutaneous pen (Lantus #15 mL Solostar U-100 Insulin) Allergies Allergy/AdvReac Type Severity Reaction Status Date / Time No Known Allergies Allergy Verified 04/07/24 17:41 [No Known Allergies*] Review of Systems 2 Review of Systems: Constitutional : No Weight loss, No Fever, No Chills, No Night Sweats, No Fatigue, No Malaise ENT/Mouth : No Hearing loss, No Ear Pain, No Nasal Congestion, No Sinus Pain, No Hoarseness, No sore throat, No Rhinorrhea, No Swallowing Difficulty Eyes: No Eye Pain, No Swelling, No Redness, No Foreign Body, No Discharge, No Vision Changes Cardiovascular : No Chest Pain, No SOB, No Dyspnea on Exertion, No Orthopnea, No Edema, No Palpitations Respiratory : No Cough, No Sputum, No Wheezing, No Smoke Exposure, No Dyspnea Gastrointestinal : No Nausea, No Vomiting, No Diarrhea, No Constipation, No abdominal Pain, No Hematochezia, No Melena Genitourinary : no irregular bleeding, No Dysuria, No Urinary Frequency, No Hematuria, No Urinary Incontinence, No Urgency, No Flank Pain, No Urinary Flow Changes, No Hesitancy Musculoskeletal : No joint pain, No Myalgias, No Joint Swelling Skin : No Skin Lesions, No rash Neuro : No Weakness, No Numbness, No Paresthesias, No Loss of Consciousness, No Dizziness, No Headache Psych : No Anxiety/Panic, No Depression, No SI/HI/AH/VH, No Social Issues, Heme/Lymph: No Bruising, No Bleeding,No Lymphadenopathy Endocrine : No Polyuria, No Polydipsia, No Temperature Intolerance [facility] Past Medical History Medical History Mass of bladder Bladder mass Pacemaker History of adenomatous polyp of colon Cardiomyopathy Chronic kidney disease, stage 4 (severe) Hypertension Type 2 diabetes mellitus with diabetic nephropathy Social History Social History (Updated 03/17/24 @ 10:13 by Joyce Baum) Household Members: Children Housing: Unknown / Unable to assess Do you presently have visiting nurse or other home services: No Alcohol intake: never Comment: counts correct Patient Tobacco Use Status: Never used Tobacco Smoked in Last 30 Days: No Use of substances other than those prescribed or required for medical reasons: No Any prior treatment program specific to substance use: No Advance Directives: No Advance Directives Information Provided: No Do you have a plan to hurt others: No Plan Patient : No service: No Current occupational status: disabled Gender identity: Female Physical Exam ED Vital Signs: Vital Signs - 24 hr 04/07/24 17:39 04/07/24 19:25 04/07/24 21:10 Temperature 97.8 F 98.5 F 97.2 F Pulse Rate 77 76 78 Respiratory Rate 20 14 12 Blood Pressure 131/51 L 139/59 L 109/67 Pulse Oximetry 100 100 100 Oxygen Delivery Method Room Air Room Air Room Air 04/07/24 23:16 04/08/24 01:49 04/08/24 02:18 Temperature 98.5 F 98.4 F Pulse Rate 75 79 82 Respiratory Rate 14 14 16 Blood Pressure 148/63 H 134/60 Pulse Oximetry 99 100 Oxygen Delivery Method Room Air Room Air 04/08/24 03:33 04/08/24 06:03 Temperature 98.2 F 98.2 F Pulse Rate 120 H 113 H Respiratory Rate 18 18 Blood Pressure 110/49 L 119/58 L Pulse Oximetry 100 98 Oxygen Delivery Method Room Air Room Air BMI result Body Mass Index 28.3 Const Other: Appearance: Alert. Oriented X3. No acute distress. Eyes: Pupils equal, round and reactive to light. ENT: Pharynx normal. Neck: Normal inspection. Neck supple. No lymph nodes noted. No crepitus CVS: Normal heart rate and rhythm. Pulses normal. Normal S1 and S2 Respiratory: No respiratory distress. Breath sounds normal. No Wheezing. No rales Abdomen: Soft and nontender. No rigidity. No distention. Skin: Skin warm and dry. Normal skin color. Normal skin turgor. Extremities: No lower extremity edema. No Lacerations. No Rash Neuro: Oriented X 3. No motor deficit. No sensory deficit. Moving all extremities. No slurred speech. CN 2 through 12 grossly intact Psych: calm, cooperative, normal affect Course Course Course Narrative: This is an RME performed by Christophe Buckley CNP: Additional HPI, ROS, PE not included below will be deferred to primary provider. Patient is a 58-year-old female who presents to the emergency department with daughter for evaluation. Received phone call from [facility], she has received ?poor treatment? on 04/03 and 04/05, and was unable to receive treatment today. She has a right IJ catheter that is not working well. She has an appointment with [facility] to see Dr. Renae this is not until 04/12/24. Nephrology was consulted by her dialysis center, they advise they spoke with Dr. Christianson who is covering for Dr. Martinez, recommended to come to the emergency department for a new catheter and to be dialyzed Medications Administered Discontinued Medications Generic Name Dose Route Start Last Admin Trade Name Freq PRN Reason Stop Dose Admin Albuterol Sulfate 10 mg 04/08/24 01:50 04/08/24 02:17 Albuterol Sulfate (0.083%) 2.5 Mg/3 Ml Vial.Neb INHALE 04/08/24 01:51 10 mg ONCE ONE Administration Calcium Gluconate 2 gm in 100 mls @ 50 mls/hr 04/08/24 01:50 04/08/24 05:59 Calcium Gluconate IV 04/08/24 03:49 Infused ONCE ONE Infusion Sodium Zirconium Cyclosilicate 10 gm 04/08/24 01:50 04/08/24 03:35 Sodium Zirconium Cyclosilicate 10 Gm Powd.Pack PO 04/08/24 01:51 10 gm ONCE ONE Administration Medical Decision Making Medical Decision Making [facility] Narrative: -my interpretation of EKG: Atrial sensed ventricular paced rhythm, heart rate 81, no ST segment depression or elevation, no T-wave inversion QTC 466 My interpretation of labs: Patient's hematology at baseline, chemistry mostly at baseline accepted potassium which was 6.1. Patient received nebulization treatment, Lokelma, we rechecked labs, potassium now 4.8. -I discussed the patient with Dr. Christianson, at this time, patient is at baseline, intervention radiology is not here over the weekend. After discussing the patient with Dr. Christianson, we will go ahead to facilitate the PermCath placement by IR on Wednesday. I discussed the above-mentioned with Dr. hamilton from the Medicine team, patient being admitted Lab Data [facility] Lab Attestation statement: I reviewed the patient's lab results. 04/07/24 18:05 04/08/24 03:12 Labs: Lab Results 04/07/24 04/08/24 Range/Units 18:05 03:12 WBC 7.1 (4.8-10.8) X10*3/uL RBC 2.73 L (4.20-5.50) X10*6/uL Hgb 8.2 L (12.0-16.0) g/dl Hct 24.6 L (37.0-47.0) % MCV 90.1 (80.0-98.0) fL MCH 30.0 (27.0-33.0) pg MCHC 33.3 (31.0-35.0) g/dl RDW 15.8 (11.0-16.0) % Plt Count 163 D (160-400) X10*3/uL MPV 10.5 (9.4-12.3) fL Immature Gran % (Auto) 0.4 (0.0-0.4) % Neut % (Auto) 67.1 (45-73) % Lymph % (Auto) 18.3 L (20-40) % Dubois % (Auto) 10.6 (2-11) % Eos % (Auto) 3.0 (0-4) % Baso % (Auto) 0.6 (0-2) % Lymph # (Auto) 1.3 (1.2-4.9) X10*3/uL Dubois # (Auto) 0.8 (0.1-1.2) X10*3/uL Eos # (Auto) 0.2 (0.0-0.4) X10*3/uL Baso # (Auto) 0.0 (0.0-0.2) X10*3/uL Abs Immat Gran (auto) 0.03 (0.00-0.03) X10*3/uL Absolute Neuts (auto) 4.8 (2.0-8.3) x10*3/uL Absolute Nucleated RBC 0.000 (0.0-0.012) X10*3/uL Nucleated RBC % (auto) 0.0 (0.0-0.2) /100WBC Smear Tech's Comments VERIFIED PT 11.4 (11.1-13.3) SEC INR 0.9 (0.9-1.1) Sodium 130 L 130 L (135-145) mmol/L Potassium 6.1 H* D 4.8 D (3.3-5.1) mmol/L Chloride 96 97 (96-108) mmol/L Carbon Dioxide 20 L 20 L (22-29) mmol/L Anion Gap 20 18 (12-20) BUN 43 H 47 H (9-16) mg/dL Creatinine 7.17 H* 7.60 H* (0.5-1.4) mg/dL Estim Creat Clear Calc 7.3 6.9 Estimated GFR 6 5 Random Glucose 161 H 141 H (60-115) mg/dL Calcium 8.9 9.2 (8.4-10.2) mg/dL Magnesium 2.1 (1.6-2.6) mg/dL Total Bilirubin 0.4 (0.0-1.0) mg/dL AST 17 (5-31) U/L ALT 12 (0-31) U/L Alkaline Phosphatase 107 (39-117) U/L Total Protein 7.7 (6.5-8.0) g/dL Albumin 3.5 (3.5-5.0) g/dL Critical Care Time Critical Care Time Critical Care Time: Yes Total Critical Care Time: 60 Attestation: I have personally provided critical care time. Time includes review of lab data, radiology results, discussion with consultants, and monitoring for potential decompensation. Intervention performed as documented. Discharge Plan Discharge Clinical Impression: Acute hyperkalemia, Complication associated with dialysis catheter Patient Disposition: Admitted As Inpatient Prescriptions: No Action insulin glargine [Lantus Solostar U-100 Insulin] 100 unit/mL (3 mL) insulin pen 10 unit subcut BEDTIME Qty: 15 0RF Trulicity 1.5 mg/0.5 mL pen injector subcut QWEEK tramadol 25 mg Tablet (DME) lancets [TRUEplus Lancets] 33 gauge misc See Rx Instructions .ROUTE .MEDSUPPLY Qty: 100 Rx Instructions: As directed (DME) pen needle, diabetic [Pentips] 32 gauge x 5/32 needle See Rx Instructions .ROUTE DIRECTED Qty: 1200 Rx Instructions: As directed insulin lispro 100 unit/mL insulin pen 8 - 18 unit subcut TID omeprazole 20 mg capsule,delayed release(DR/EC) 20 mg PO BID amitriptyline 50 mg tablet 50 mg PO BEDTIME Trulicity 1.5 mg/0.5 mL pen injector 1.5 mg subcut GORDON cholecalciferol (vitamin D3) [Vitamin D3] 50 mcg (2,000 unit) capsule 50 mcg PO QAM rosuvastatin 40 mg tablet 40 mg PO BEDTIME aspirin 81 mg tablet,delayed release (DR/EC) 81 mg PO QAM Hold Instructions: hold for one week metoprolol tartrate 25 mg tablet 25 mg PO BID calcitriol 0.25 mcg capsule 0.25 mcg PO DAILY 30 Days Qty: 30 3RF Print Language: [place]ican
[2024-04-07 18:23] LABS: INTERNATIONAL NORM RATIO 0.9 (0.9-1.1); Prothrombin Time 11.4 SEC (11.1-13.3)
[2024-04-07 18:27] LABS: Hemoglobin 8.2 g/dl (12.0-16.0); PLT CLUMP 1; SCAN SMEAR FLAG 1
[2024-04-07 18:29] LABS: Basophils Percent Auto 0.6 % (0-2); Eosinophils Absolute Auto 0.2 X10*3/uL (0.0-0.4); Hematocrit 24.6 % (37.0-47.0); Imm Gran Abs Auto 0.03 X10*3/uL (0.00-0.03); Imm Gran Pct Auto 0.4 % (0.0-0.4); Lymphocytes Absolute Auto 1.3 X10*3/uL (1.2-4.9); Lymphocytes Percent Auto 18.3 % (20-40); MANUAL DIFF FLAG SCAN; Mean Corpuscular HGB Conc 33.3 g/dl (31.0-35.0); Mean Corpuscular Volume 90.1 fL (80.0-98.0); Mean Platelet Volume 10.5 fL (9.4-12.3); Monocytes Absolute Auto 0.8 X10*3/uL (0.1-1.2); Monocytes Percent Auto 10.6 % (2-11); Neutrophils Absolute Auto 4.8 x10*3/uL (2.0-8.3); Neutrophils Percent Auto 67.1 % (45-73); Red Blood Count 2.73 X10*6/uL (4.20-5.50); Red Cell Distribution Width 15.8 % (11.0-16.0)
[2024-04-07 18:34] LABS: White Blood Count 7.1 X10*3/uL (4.8-10.8)
--- NOTE | 2024-04-07 18:42 | ECG_ITS ---
Test Reason : GEN MED Blood Pressure : / mmHG Vent. Rate : 081 BPM Atrial Rate : 081 BPM P-R Int : 138 ms QRS Dur : 132 ms QT Int : 402 ms P-R-T Axes : 065 -26 108 degrees QTc Int : 466 ms Atrial-sensed ventricular-paced rhythm Abnormal ECG When compared with ECG of 20-MAR-2024 13:58, Vent. rate has increased BY 4 BPM Referred By: Gwendolyn Buckley Electronically Signed By:Antione Jaffe
[2024-04-07 18:43] LABS: Alanine Aminotransferase 12 U/L (0-31); Albumin Level 3.5 g/dL (3.5-5.0); Alkaline Phosphatase 107 U/L (39-117); Anion Gap 20 (12-20); Aspartate Amino Transferase 17 U/L (5-31); Bilirubin Total 0.4 mg/dL (0.0-1.0); Blood Urea Nitrogen 43 mg/dL (9-16); Calcium 8.9 mg/dL (8.4-10.2); Carbon Dioxide 20 mmol/L (22-29); Chloride 96 mmol/L (96-108); Creatinine Clr Calc Pharmacy 7.3; Estimated Glomerular Filt Rate 6; Glucose Random 161 mg/dL (60-115); Magnesium 2.1 mg/dL (1.6-2.6); Potassium 6.1 mmol/L (3.3-5.1); Sodium 130 mmol/L (135-145); Total Protein 7.7 g/dL (6.5-8.0)
[2024-04-07 19:18] LABS: Platelet Count 163 X10*3/uL (160-400); SLIDE REVIEW VERIFIED
[2024-04-07 19:25] VITALS: BP 139/59; PULSE 76; RESP 14; TEMP 36.9; O2SAT 100
--- NOTE | 2024-04-07 19:48 | PC.NURSE ---
pt has dialysis, on MWF, her dialysis cath, was not working properly on Wed, and Wed, and on Wednesday, it was not working at all. Pt sent to ER, for this reason. Pt urinates, small amounts of urine. Family member at bedside, pt placed on monitor. Warm packs, given for lower back pain
[2024-04-07 21:10] VITALS: BP 109/67; PULSE 78; RESP 12; TEMP 36.2; O2SAT 100
[2024-04-07 23:16] VITALS: BP 148/63; PULSE 75; RESP 14; TEMP 36.9; O2SAT 99
[2024-04-08] VITALS (10 sets, daily range): BP systolic 110–151; BP diastolic 49–73; PULSE 79–120; RESP 14–20; TEMP 35.9–37; O2SAT 95–100
--- NOTE | 2024-04-08 01:34 | PC.NURSE ---
attempted to start IV in right wrist, unable to do so. pt tolerated well, no s/s of acute distress, resting quieltly
[2024-04-08] MEDS: Albuterol Sulfate (0.083%) 2.5 MG/3 ML VIAL.NEB 10 MG INHALE (02:17)
[2024-04-08 03:32] LABS: Anion Gap 18 (12-20); Blood Urea Nitrogen 47 mg/dL (9-16); Calcium 9.2 mg/dL (8.4-10.2); Carbon Dioxide 20 mmol/L (22-29); Chloride 97 mmol/L (96-108); Creatinine Clr Calc Pharmacy 6.9; Estimated Glomerular Filt Rate 5; Glucose Random 141 mg/dL (60-115); Potassium 4.8 mmol/L (3.3-5.1); Sodium 130 mmol/L (135-145)
[2024-04-08] MEDS: Sodium Zirconium Cyclosilicate 10 GM POWD.PACK PO ×3 (03:35→21:57)
[2024-04-08] MEDS: Calcium Gluconate/NaCl,Iso-Osm 2 GM/100 ML PLAST..BAG IV (03:35)
[2024-04-08] MEDS: LORazepam 0.5 MG TABLET PO (07:45)
--- NOTE | 2024-04-08 09:04 | PHA.MEDREC ---
Pharmacy Consult ? Medication Reconciliation Pharmacy has completed the medication reconciliation. Patient reports that their hairspring vibrator discontinued their Farxiga because of their kidney function . However, [facility] home med list has Farxiga documented (Print date 04/07/24). Since patient reports not taking it anymore due to hairspring vibrator D/C, leaving off med rec.
[2024-04-08] MEDS: Heparin Sodium,Porcine 5,000 UNIT/ML VIAL 5000 UNIT SUBCUT ×2 (09:48→21:56)
[2024-04-08] MEDS: 0.9 % Sodium Chloride Flush 3 ML SYRINGE IVFLUSH ×3 (09:51→23:46)
[2024-04-08 11:30] LABS: Glucose, Whole Blood 214 mg/dL (60-115)
--- NOTE | 2024-04-08 12:53 | PM.IMHP ---
History of Present Illness Date of Service: 04/08/24 Chief Complaint: Non-functioning dialysis Port-A-Cath 58-year-old female with known end-stage renal disease on dialysis was sent from dialysis center secondary to a nonfunctioning Port-A-Cath. Found to be hyponatremic in the emergency room. Case discussed with Renal who recommends admission following labs with Port-A-Cath change next available slot Review of Systems Review of Systems: Denies chest pain Denies shortness of breath Denies nausea vomiting diarrhea Denies fever chills [facility] Medical History (Updated 04/08/24 @ 12:56 by Milton Ortega DO) Mass of bladder Bladder mass Pacemaker History of adenomatous polyp of colon Cardiomyopathy Chronic kidney disease, stage 4 (severe) Hypertension Type 2 diabetes mellitus with diabetic nephropathy Social History Household Members: Children Housing: Unknown / Unable to assess Do you presently have visiting nurse or other home services: No Alcohol intake: never Comment: counts correct Patient Tobacco Use Status: Never used Tobacco Smoked in Last 30 Days: No Use of substances other than those prescribed or required for medical reasons: No Any prior treatment program specific to substance use: No Advance Directives: No Advance Directives Information Provided: No Do you have a plan to hurt others: No Plan Patient : No service: No Current occupational status: disabled Gender identity: Female Meds Allergies Allergy/AdvReac Type Severity Reaction Status Date / Time No Known Allergies Allergy Verified 04/07/24 17:41 [No Known Allergies*] Active Medications: Current Medications Acetaminophen (Acetaminophen 325 Mg Tablet) 650 mg PO Q6H PRN PRN Reason: Pain, Mild (Pain Scale 1-3), fever or headache Calcium Carbonate (Calcium Carbonate 750 Mg Tab.Chew) 750 mg PO Q4H PRN PRN Reason: Heartburn Glucose (Glucose Gel 15 Gm Gel..Gram.) 15 gm PO Q15M PRN; Protocol PRN Reason: per Hypoglycemia Standing Ord. Heparin Sodium (Porcine) (Heparin Sodium,Porcine 5,000 Unit/Ml Vial) 5,000 unit SUBCUT Q12H [facility] Last Admin: 04/08/24 09:48 Dose: 5,000 unit Dextrose (D10) 250 mls @ 750 mls/hr IV Q15M PRN; Protocol PRN Reason: per Hypoglycemia Standing Ord. Insulin Human Lispro (Insulin Lispro 100 Unit/Ml 3 Ml Vial) 0 unit SUBCUT QIDACHS [facility]; Protocol Lorazepam (Lorazepam 0.5 Mg Tablet) 0.5 mg PO Q6H PRN PRN Reason: Anxiety Magnesium Hydroxide (Milk Of Magnesia 30 Ml Oral.Susp) 30 ml PO DAILY PRN PRN Reason: Constipation Melatonin (Melatonin 3 Mg Tablet) 6 mg PO BEDTIME PRN PRN Reason: Insomnia Ondansetron HCl (Ondansetron Hcl 4 Mg/2 Ml Vial) 4 mg IVPUSH Q8H PRN PRN Reason: Nausea and Vomiting Sodium Chloride (0.9 % Sodium Chloride Flush 3 Ml Syringe) 3 ml IVFLUSH QSHIFT [facility] Last Admin: 04/08/24 09:51 Dose: 3 ml Sodium Zirconium Cyclosilicate (Sodium Zirconium Cyclosilicate 10 Gm Powd.Pack) 10 gm PO BID [facility] Stop: 04/09/24 21:01 Last Admin: 04/08/24 09:48 Dose: 10 gm Home Medications ?Medication ?Instructions ?Recorded ?Confirmed ?Last Taken ?Type amitriptyline 50 mg tablet 50 mg PO BEDTIME 10/22/23 04/08/24 04/07/24 History aspirin 81 mg tablet,delayed 81 mg PO DAILY 10/22/23 04/08/24 04/07/24 History release cholecalciferol (vitamin D3) 50 50 mcg PO DAILY 10/22/23 04/08/24 04/07/24 History mcg (2,000 unit) capsule (Vitamin D3) dulaglutide 1.5 mg/0.5 mL 1.5 mg subcut GORDON@0900 10/22/23 04/08/24 04/07/24 History subcutaneous pen injector (Trulicity) insulin lispro 100 unit/mL 1 sliding scale dose subcut TIDAC 10/22/23 04/08/24 04/07/24 History subcutaneous pen lancets 33 gauge (TRUEplus Lancets) #100 ea 10/22/23 01/20/24 Unknown History omeprazole 20 mg capsule,delayed 20 mg PO BID@0630,1630 10/22/23 04/08/24 04/07/24 History release pen needle, diabetic 32 gauge x #1,200 ea 10/22/23 01/20/24 Unknown History (Pentips) rosuvastatin 40 mg tablet 40 mg PO BEDTIME 10/22/23 04/08/24 04/07/24 History dapagliflozin propanediol 10 mg 10 mg PO DAILY 04/08/24 Unknown History tablet (Farxiga) ferrous sulfate 325 mg (65 mg 325 mg PO BEDTIME 04/08/24 04/08/24 04/07/24 History iron) tablet (FeroSul) insulin glargine 100 unit/mL (3 25 unit subcut BEDTIME 04/08/24 04/08/24 04/07/24 History mL) subcutaneous pen (Lantus Solostar U-100 Insulin) metoprolol tartrate 50 mg tablet 50 mg PO BID 04/08/24 04/08/24 04/07/24 History tramadol 50 mg tablet 50 mg PO Q6H PRN pain 04/08/24 04/08/24 Unknown History Physical Exam Vital Signs and Narrative: Vital Signs: Last Vital Signs Temp 98.2 F 04/08/24 11:34 Pulse 106 H 04/08/24 11:34 Resp 15 04/08/24 11:34 BP 144/71 H 04/08/24 11:34 Pulse Ox 98 04/08/24 11:34 O2 Del Method Room Air 04/08/24 11:34 BMI result Body Mass Index 28.3 Const: Other: Awake alert no acute distress. Somewhat anxious appearing Resp: Other: Clear to auscultation bilaterally no rales rhonchi or wheezes Cardio: Other: No S4; positive S1-S2; no S3 murmurs rubs or gallops GI: Other: Soft nontender nondistended normoactive bowel sounds Extrem: Other: No edema bilaterally Results Labs 04/07/24 18:05 04/08/24 03:12 Labs: Laboratory Results - last 24 hr 04/07/24 04/08/24 04/08/24 18:05 03:12 11:26 MCV 90.1 MCH 30.0 MCHC 33.3 RDW 15.8 Plt Count 163 D MPV 10.5 Immature Gran % (Auto) 0.4 Neut % (Auto) 67.1 Lymph % (Auto) 18.3 L [place] % (Auto) 10.6 Eos % (Auto) 3.0 Baso % (Auto) 0.6 Lymph # (Auto) 1.3 [place] # (Auto) 0.8 Eos # (Auto) 0.2 Baso # (Auto) 0.0 Abs Immat Gran (auto) 0.03 Absolute Neuts (auto) 4.8 Absolute Nucleated RBC 0.000 Nucleated RBC % (auto) 0.0 Smear Tech's Comments VERIFIED PT 11.4 INR 0.9 Anion Gap 20 18 Estim Creat Clear Calc 7.3 6.9 Estimated GFR 6 5 POC Glucose 214 H Random Glucose 161 H 141 H Calcium 8.9 9.2 Magnesium 2.1 Total Bilirubin 0.4 AST 17 ALT 12 Alkaline Phosphatase 107 Total Protein 7.7 Albumin 3.5 Assessment and Plan (1) Complication associated with dialysis catheter: Status: Acute (2) ESRD (end stage renal disease) on dialysis: Status: Acute (3) Hypertension: Qualifiers: Hypertension type: primary hypertension Qualified Code(s): I10 - Essential (primary) hypertension Status: Acute (4) Type 2 diabetes mellitus with diabetic nephropathy: 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 She was transferred to [facility] for replacement. Case discussed with Renal who recommended admission with new Port-A-Cath next available slot 1. End-stage renal disease on hemodialysis with nonfunctioning Port-A-Cath -admit to telemetry -book new Port-A-Cath with IR 04/10/2024 -follow renals/divalents -consult Nephrology -[facility] 2. Diabetes type 2 requiring insulin -Lispro correctional scale -Lantus @HS -adjust as indicated 3. Hypertension -acceptable control on current therapies -adjust as indicated Renally dosed heparin Full code Patient will require at least 2 midnights going forward of hospitalization to follow renal/divalent along with specialty consultation awaiting change of Port-A-Cath. This can not be achieved a lesser acute setting Quality Stroke Does the patient have a stroke diagnosis?: No VTE Prior VTE?: No VTE Risk Level:: Medical - moderate - high VTE Device Contraindication: Treatment Not Indicated VTE Drug Contraindication: N/A - Med Ordered
[2024-04-08 13:31] LABS: Glucose, Whole Blood 207 mg/dL (60-115)
[2024-04-08 16:22] LABS: Glucose, Whole Blood 289 mg/dL (60-115)
[2024-04-08] MEDS: Insulin Lispro 100 UNIT/ML 3 ML VIAL SUBCUT ×2 (17:20→21:57)
[2024-04-08 20:20] LABS: Glucose, Whole Blood 184 mg/dL (60-115)
[2024-04-08] MEDS: Amitriptyline HCl 50 MG TABLET PO (21:56)
[2024-04-08] MEDS: Metoprolol Tartrate 50 MG TABLET PO (21:56)
[2024-04-08] MEDS: Insulin Glargine,Hum.rec.anlog 100 UNIT/ML 10 ML VIAL 25 UNIT SUBCUT (21:57)
[2024-04-08] MEDS: Melatonin 3 MG TABLET 6 MG PO (22:05)
[2024-04-08] MEDS: Acetaminophen 325 MG TABLET 650 MG PO (22:05)
[2024-04-09] VITALS (7 sets, daily range): BP systolic 121–154; BP diastolic 58–70; PULSE 75–94; RESP 18–20; TEMP 36.3–37.3; O2SAT 95–100
[2024-04-09] MEDS: Omeprazole 20 MG CAPSULE.DR PO ×2 (05:48→16:26)
[2024-04-09 06:51] LABS: MANUAL DIFF FLAG NO
[2024-04-09 06:56] LABS: Basophils Percent Auto 0.6 % (0-2); Eosinophils Absolute Auto 0.2 X10*3/uL (0.0-0.4); Eosinophils Percent Auto 4.3 % (0-4); Hematocrit 21.6 % (37.0-47.0); Hemoglobin 7.1 g/dl (12.0-16.0); Imm Gran Abs Auto 0.03 X10*3/uL (0.00-0.03); Imm Gran Pct Auto 0.6 % (0.0-0.4); Lymphocytes Absolute Auto 1.4 X10*3/uL (1.2-4.9); Lymphocytes Percent Auto 25.9 % (20-40); Mean Corpuscular HGB Conc 32.9 g/dl (31.0-35.0); Mean Corpuscular Hemoglobin 29.6 pg (27.0-33.0); Mean Platelet Volume 10.4 fL (9.4-12.3); Monocytes Absolute Auto 0.5 X10*3/uL (0.1-1.2); Monocytes Percent Auto 10.1 % (2-11); Neutrophils Absolute Auto 3.1 x10*3/uL (2.0-8.3); Neutrophils Percent Auto 58.5 % (45-73); Platelet Count 140 X10*3/uL (160-400); Red Cell Distribution Width 15.6 % (11.0-16.0); White Blood Count 5.3 X10*3/uL (4.8-10.8)
[2024-04-09 07:39] LABS: Alanine Aminotransferase 10 U/L (0-31); Alkaline Phosphatase 94 U/L (39-117); Anion Gap 18 (12-20); Aspartate Amino Transferase 15 U/L (5-31); Bilirubin Total 0.3 mg/dL (0.0-1.0); Blood Urea Nitrogen 59 mg/dL (9-16); Calcium 8.4 mg/dL (8.4-10.2); Carbon Dioxide 20 mmol/L (22-29); Chloride 101 mmol/L (96-108); Potassium 4.7 mmol/L (3.3-5.1); Sodium 134 mmol/L (135-145); Total Protein 6.6 g/dL (6.5-8.0)
[2024-04-09 07:40] LABS: Creatinine Clr Calc Pharmacy 5.8; Estimated Glomerular Filt Rate 4; Glucose Random 54 mg/dL (60-115)
[2024-04-09 08:01] LABS: Glucose, Whole Blood 56 mg/dL (60-115)
[2024-04-09 09:10] LABS: Glucose, Whole Blood 135 mg/dL (60-115)
[2024-04-09] MEDS: Aspirin Enteric Coated 81 MG TABLET.DR PO (10:12)
[2024-04-09] MEDS: Sodium Zirconium Cyclosilicate 10 GM POWD.PACK PO ×2 (10:12→21:21)
[2024-04-09] MEDS: Heparin Sodium,Porcine 5,000 UNIT/ML VIAL 5000 UNIT SUBCUT ×2 (10:12→21:21)
[2024-04-09] MEDS: calcitrioL 0.25 MCG CAPSULE PO (10:12)
[2024-04-09] MEDS: Cholecalciferol (Vitamin D3) 25 MCG TABLET 50 MCG PO (10:12)
[2024-04-09] MEDS: Metoprolol Tartrate 50 MG TABLET PO ×2 (10:12→21:20)
[2024-04-09] MEDS: 0.9 % Sodium Chloride Flush 3 ML SYRINGE IVFLUSH ×3 (10:13→21:21)
[2024-04-09 11:52] LABS: Glucose, Whole Blood 192 mg/dL (60-115)
[2024-04-09] MEDS: Insulin Lispro 100 UNIT/ML 3 ML VIAL SUBCUT (12:31)
--- NOTE | 2024-04-09 13:33 | HO.PM.IMPN ---
Subjective Subjective Date of Service: 04/09/24 Interval History: No acute issues overnight. Mild hypoglycemia this a.m. Review of Systems Denies chest pain Denies shortness of breath Denies nausea vomiting diarrhea Denies fever chills Physical Exam Vital Signs: Vital Signs: Last Vital Signs Temp 99.1 F 04/09/24 12:00 Pulse 82 04/09/24 12:00 Resp 18 04/09/24 12:00 BP 138/63 04/09/24 12:00 Pulse Ox 98 04/09/24 12:00 O2 Del Method Room Air 04/09/24 12:00 BMI result Body Mass Index 28.3 Const: Other: Awake alert no acute distress. Somewhat anxious appearing Resp: Other: Clear to auscultation bilaterally no rales rhonchi or wheezes Cardio: Other: No S4; positive S1-S2; no S3 murmurs rubs or gallops GI: Other: Soft nontender nondistended normoactive bowel sounds Extrem: Other: No edema bilaterally Objective Data Active Medications Acetaminophen (Acetaminophen 325 Mg Tablet) 650 mg PO Q6H PRN PRN Reason: Pain, Mild (Pain Scale 1-3), fever or headache Last Admin: 04/08/24 22:05 Dose: 650 mg Documented By: HORACIO Amitriptyline HCl (Amitriptyline Hcl 50 Mg Tablet) 50 mg PO BEDTIME [facility] Last Admin: 04/08/24 21:56 Dose: 50 mg Documented By: HORACIO Aspirin (Aspirin Enteric Coated 81 Mg Tablet.Dr) 81 mg PO DAILY [facility] Last Admin: 04/09/24 10:12 Dose: 81 mg Documented By: KAITLYNN Calcitriol (Calcitriol 0.25 Mcg Capsule) 0.25 mcg PO DAILY [facility] Last Admin: 04/09/24 10:12 Dose: 0.25 mcg Documented By: KAITLYNN Calcium Carbonate (Calcium Carbonate 750 Mg Tab.Chew) 750 mg PO Q4H PRN PRN Reason: Heartburn Glucose (Glucose Gel 15 Gm Gel..Gram.) 15 gm PO Q15M PRN; Protocol PRN Reason: per Hypoglycemia Standing Ord. Heparin Sodium (Porcine) (Heparin Sodium,Porcine 5,000 Unit/Ml Vial) 5,000 unit SUBCUT Q12H [facility] Last Admin: 04/09/24 10:12 Dose: 5,000 unit Documented By: KAITLYNN Dextrose (D10) 250 mls @ 750 mls/hr IV Q15M PRN; Protocol PRN Reason: per Hypoglycemia Standing Ord. Insulin Human Lispro (Insulin Lispro 100 Unit/Ml 3 Ml Vial) 0 unit SUBCUT QIDACHS [facility]; Protocol Last Admin: 04/09/24 12:31 Dose: 2 unit Documented By: KAITLYNN Lorazepam (Lorazepam 0.5 Mg Tablet) 0.5 mg PO Q6H PRN PRN Reason: Anxiety Magnesium Hydroxide (Milk Of Magnesia 30 Ml Oral.Susp) 30 ml PO DAILY PRN PRN Reason: Constipation Melatonin (Melatonin 3 Mg Tablet) 6 mg PO BEDTIME PRN PRN Reason: Insomnia Last Admin: 04/08/24 22:05 Dose: 6 mg Documented By: HORACIO Metoprolol Tartrate (Metoprolol Tartrate 50 Mg Tablet) 50 mg PO BID [facility]; Protocol Last Admin: 04/09/24 10:12 Dose: 50 mg Documented By: KAITLYNN Omeprazole (Omeprazole 20 Mg Capsule.Dr) 20 mg PO BID@0630,1630 [facility] Last Admin: 04/09/24 05:48 Dose: 20 mg Documented By: HORACIO Ondansetron HCl (Ondansetron Hcl 4 Mg/2 Ml Vial) 4 mg IVPUSH Q8H PRN PRN Reason: Nausea and Vomiting Sodium Chloride (0.9 % Sodium Chloride Flush 3 Ml Syringe) 3 ml IVFLUSH QSHIFT [facility] Last Admin: 04/09/24 10:13 Dose: 3 ml Documented By: KAITLYNN Sodium Zirconium Cyclosilicate (Sodium Zirconium Cyclosilicate 10 Gm Powd.Pack) 10 gm PO BID [facility] Stop: 04/09/24 21:01 Last Admin: 04/09/24 10:12 Dose: 10 gm Documented By: KAITLYNN Vitamin D (Cholecalciferol (Vitamin D3) 25 Mcg Tablet) 50 mcg PO DAILY [facility] Last Admin: 04/09/24 10:12 Dose: 50 mcg Documented By: KAITLYNN Labs 04/09/24 06:37 04/09/24 06:37 Labs: Laboratory Results - last 24 hr 04/08/24 04/08/24 04/09/24 16:18 20:14 06:37 MCV 90.0 MCH 29.6 MCHC 32.9 RDW 15.6 Plt Count 140 L MPV 10.4 Immature Gran % (Auto) 0.6 H Neut % (Auto) 58.5 Lymph % (Auto) 25.9 [place] % (Auto) 10.1 Eos % (Auto) 4.3 H Baso % (Auto) 0.6 Lymph # (Auto) 1.4 [place] # (Auto) 0.5 Eos # (Auto) 0.2 Baso # (Auto) 0.0 Abs Immat Gran (auto) 0.03 Absolute Neuts (auto) 3.1 Absolute Nucleated RBC 0.000 Nucleated RBC % (auto) 0.0 Anion Gap 18 Estim Creat Clear Calc 5.8 Estimated GFR 4 POC Glucose 289 H 184 H Random Glucose 54 L* Calcium 8.4 D Total Bilirubin 0.3 AST 15 ALT 10 Alkaline Phosphatase 94 Total Protein 6.6 Albumin 3.0 L 04/09/24 04/09/24 04/09/24 07:57 09:07 11:44 MCV MCH MCHC RDW Plt Count MPV Immature Gran % (Auto) Neut % (Auto) Lymph % (Auto) [place] % (Auto) Eos % (Auto) Baso % (Auto) Lymph # (Auto) [place] # (Auto) Eos # (Auto) Baso # (Auto) Abs Immat Gran (auto) Absolute Neuts (auto) Absolute Nucleated RBC Nucleated RBC % (auto) Anion Gap Estim Creat Clear Calc Estimated GFR POC Glucose 56 L* 135 H 192 H Random Glucose Calcium Total Bilirubin AST ALT Alkaline Phosphatase Total Protein Albumin Assessment and Plan (1) ESRD (end stage renal disease) on dialysis: Status: Acute (2) Complication associated with dialysis catheter: Status: Acute (3) Type 2 diabetes mellitus with diabetic nephropathy: Status: Acute Plan 58-year-old female with known history of end-stage renal disease on dialysis presented to routine outpatient dialysis today and found to have a nonfunctioning Port-A-Cath access. She was transferred to [facility] for replacement. Case discussed with Renal who recommended admission with new Port-A-Cath next available slot 1. End-stage renal disease on hemodialysis with nonfunctioning Port-A-Cath -new Port-A-Cath with IR 04/10/2024 -follow renals/divalents.. Potassium stable -consult Nephrology -[facility] b.i[facility] 2. Diabetes type 2 requiring insulin -POC 59 this a.m. . .. DC HS Lantus -Lispro correctional scale -adjust as indicated 3. Hypertension -acceptable control on current therapies -adjust as indicated Renally dosed heparin Full code Patient requires ongoing hospitalization to monitor divalent pending Port-A-Cath removal. Also requires specialty consult Quality Stroke Does the patient have a stroke diagnosis?: No VTE Prior VTE?: No VTE Risk Level:: Medical - moderate - high VTE Device Contraindication: Treatment Not Indicated VTE Drug Contraindication: N/A - Med Ordered
[2024-04-09 14:09] LABS: Glucose, Whole Blood 152 mg/dL (60-115)
--- NOTE | 2024-04-09 15:20 | PM.EVENT ---
Event Note Date of Service: 04/09/24 Event Note: 58 yr old woman with ESRD Missed 2 HD treatments due to dysfunctional permacath Will order Permcath for 04/10/24 and resume dialysis Time Spent With Patient Time: Total time managing care of this patient today ____ minutes.
[2024-04-09 16:10] LABS: Glucose, Whole Blood 140 mg/dL (60-115)
[2024-04-09 19:51] LABS: Glucose, Whole Blood 163 mg/dL (60-115)
[2024-04-09] MEDS: Melatonin 3 MG TABLET 6 MG PO (21:20)
[2024-04-09] MEDS: Amitriptyline HCl 50 MG TABLET PO (21:20)
[2024-04-10] VITALS (10 sets, daily range): BP systolic 117–164; BP diastolic 55–79; PULSE 72–87; RESP 16–20; TEMP 36.1–36.9; O2SAT 94–100
[2024-04-10] MEDS: Omeprazole 20 MG CAPSULE.DR PO ×2 (06:01→17:29)
[2024-04-10 07:48] LABS: Alanine Aminotransferase 10 U/L (0-31); Alkaline Phosphatase 98 U/L (39-117); Anion Gap 17 (12-20); Aspartate Amino Transferase 14 U/L (5-31); Bilirubin Total 0.3 mg/dL (0.0-1.0); Blood Urea Nitrogen 67 mg/dL (9-16); Carbon Dioxide 22 mmol/L (22-29); Chloride 102 mmol/L (96-108); Creatinine Clr Calc Pharmacy 5.4; Estimated Glomerular Filt Rate 4; Glucose Random 118 mg/dL (60-115); Potassium 3.8 mmol/L (3.3-5.1); Sodium 137 mmol/L (135-145); Total Protein 6.5 g/dL (6.5-8.0)
[2024-04-10 08:14] LABS: Glucose, Whole Blood 112 mg/dL (60-115)
[2024-04-10] MEDS: Aspirin Enteric Coated 81 MG TABLET.DR PO (09:23)
[2024-04-10] MEDS: Cholecalciferol (Vitamin D3) 25 MCG TABLET 50 MCG PO (09:23)
[2024-04-10] MEDS: calcitrioL 0.25 MCG CAPSULE PO (09:23)
[2024-04-10] MEDS: 0.9 % Sodium Chloride Flush 3 ML SYRINGE IVFLUSH ×2 (09:23→17:29)
[2024-04-10] MEDS: Metoprolol Tartrate 50 MG TABLET PO ×2 (09:23→21:46)
[2024-04-10] MEDS: Acetaminophen 325 MG TABLET 650 MG PO ×2 (09:26→21:47)
--- NOTE | 2024-04-10 09:35 | MHC.CM.PN ---
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 For DME she has a walker. She said that she completed a HCP the last time she was here, CM to look for this. She can arrange a ride home at DC. CM to follow and assist with DC plan.
[2024-04-10 12:16] LABS: Glucose, Whole Blood 113 mg/dL (60-115)
--- NOTE | 2024-04-10 13:49 | P.PNIM_ITS ---
Subjective Subjective Date of Service: 04/10/24 Interval History: no acute issues overnight. Labs remained stable. Port-A-Cath replaced this a.m. Review of Systems Denies chest pain Denies shortness of breath Denies nausea vomiting diarrhea Denies fever chills Physical Exam 2 Vital Signs: Vital Signs: Last Vital Signs Temp 97.0 F 04/10/24 12:00 Pulse 73 04/10/24 12:00 Resp 20 04/10/24 12:00 BP 164/79 H 04/10/24 12:00 Pulse Ox 100 04/10/24 12:00 O2 Del Method Room Air 04/10/24 12:00 BMI result Body Mass Index 28.3 Const: Other: Awake alert no acute distress. Somewhat anxious appearing Resp: Other: Clear to auscultation bilaterally no rales rhonchi or wheezes Cardio: Other: No S4; positive S1-S2; no S3 murmurs rubs or gallops GI: Other: Soft nontender nondistended normoactive bowel sounds Extrem: Other: No edema bilaterally Objective Data Active Medications Acetaminophen (Acetaminophen 325 Mg Tablet) 650 mg PO Q6H PRN PRN Reason: Pain, Mild (Pain Scale 1-3), fever or headache Last Admin: 04/10/24 09:26 Dose: 650 mg Documented By: CHERYL Amitriptyline HCl (Amitriptyline Hcl 50 Mg Tablet) 50 mg PO BEDTIME [facility] Last Admin: 04/09/24 21:20 Dose: 50 mg Documented By: DAVID Aspirin (Aspirin Enteric Coated 81 Mg Tablet.) 81 mg PO DAILY [facility] Last Admin: 04/10/24 09:23 Dose: 81 mg Documented By: CHERYL Calcitriol (Calcitriol 0.25 Mcg Capsule) 0.25 mcg PO DAILY [facility] Last Admin: 04/10/24 09:23 Dose: 0.25 mcg Documented By: CHERYL Calcium Carbonate (Calcium Carbonate 750 Mg Tab.Chew) 750 mg PO Q4H PRN PRN Reason: Heartburn Glucose (Glucose Gel 15 Gm Gel..Gram.) 15 gm PO Q15M PRN; Protocol PRN Reason: per Hypoglycemia Standing Ord. Heparin Sodium (Porcine) (Heparin Sodium,Porcine 5,000 Unit/Ml Vial) 5,000 unit SUBCUT Q12H [facility] Last Admin: 04/10/24 09:16 Dose: Not Given Documented By: CHERYL Non-Admin Reason: pt going for procedure 1030 Dextrose (D10) 250 mls @ 750 mls/hr IV Q15M PRN; Protocol PRN Reason: per Hypoglycemia Standing Ord. Insulin Human Lispro (Insulin Lispro 100 Unit/Ml 3 Ml Vial) 0 unit SUBCUT QIDACHS [facility]; Protocol Last Admin: 04/10/24 12:27 Dose: Not Given Documented By: CHERYL Non-Admin Reason: No Insulin Coverage Lorazepam (Lorazepam 0.5 Mg Tablet) 0.5 mg PO Q6H PRN PRN Reason: Anxiety Magnesium Hydroxide (Milk Of Magnesia 30 Ml Oral.Susp) 30 ml PO DAILY PRN PRN Reason: Constipation Melatonin (Melatonin 3 Mg Tablet) 6 mg PO BEDTIME PRN PRN Reason: Insomnia Last Admin: 04/09/24 21:20 Dose: 6 mg Documented By: DAVID Metoprolol Tartrate (Metoprolol Tartrate 50 Mg Tablet) 50 mg PO BID [facility]; Protocol Last Admin: 04/10/24 09:23 Dose: 50 mg Documented By: CHERYL Omeprazole (Omeprazole 20 Mg Capsule.Dr) 20 mg PO BID@0630,1630 [facility] Last Admin: 04/10/24 06:01 Dose: 20 mg Documented By: DAVID Ondansetron HCl (Ondansetron Hcl 4 Mg/2 Ml Vial) 4 mg IVPUSH Q8H PRN PRN Reason: Nausea and Vomiting Sodium Chloride (0.9 % Sodium Chloride Flush 3 Ml Syringe) 3 ml IVFLUSH QSHIFT [facility] Last Admin: 04/10/24 09:23 Dose: 3 ml Documented By: CHERYL Vitamin D (Cholecalciferol (Vitamin D3) 25 Mcg Tablet) 50 mcg PO DAILY [facility] Last Admin: 04/10/24 09:23 Dose: 50 mcg Documented By: CHERYL Labs 04/09/24 06:37 04/10/24 06:25 Labs: Laboratory Results - last 24 hr 04/09/24 04/09/24 04/09/24 14:05 15:59 19:47 Hold Purple Top Anion Gap Estim Creat Clear Calc Estimated GFR POC Glucose 152 H 140 H 163 H Random Glucose Calcium Total Bilirubin AST ALT Alkaline Phosphatase Total Protein Albumin 04/10/24 04/10/2424 06:25 08:11 12:07 Hold Purple Top SEE NOTE Anion Gap 17 Estim Creat Clear Calc 5.4 Estimated GFR 4 POC Glucose 112 113 Random Glucose 118 H Calcium 8.0 L Total Bilirubin 0.3 AST 14 ALT 10 Alkaline Phosphatase 98 Total Protein 6.5 Albumin 3.0 L Assessment and Plan (1) Complication associated with dialysis catheter: Status: Acute (2) ESRD (end stage renal disease) on dialysis: Status: Acute (3) Type 2 diabetes mellitus with diabetic nephropathy: Status: Acute Plan 58-year-old female with known history of end-stage renal disease on dialysis presented to routine outpatient dialysis today and found to have a nonfunctioning Port-A-Cath access. She was transferred to [facility] for replacement. Case discussed with Renal who recommended admission with new Port-A-Cath next available slot 1. End-stage renal disease on hemodialysis with nonfunctioning Port-A-Cath -new Port-A-Cath with IR 04/10/2024 - urgent hemodialysis today - possible DC later this afternoon 2. Diabetes type 2 requiring insulin -POC 59 this a.m. . .. DC HS Lantus -Lispro correctional scale -adjust as indicated.. resume regular regimen now that Port-A-Cath functional 3. Hypertension -acceptable control on current therapies -adjust as indicated Renally dosed heparin Full code Patient requires ongoing hospitalization to monitor divalent pending Port-A-Cath removal. Also requires specialty consult Quality Stroke Does the patient have a stroke diagnosis?: No VTE Prior VTE?: No VTE Risk Level:: Medical - moderate - high VTE Device Contraindication: Treatment Not Indicated VTE Drug Contraindication: N/A - Med Ordered
--- NOTE | 2024-04-10 14:14 | P.CONNP_ITS ---
History of Present Illness Reason for Consult Consult date: 04/10/24 Chief Complaint Chief complaint: Hyperkalemia History of Present Illness Narrative: 58-year-old female with known end-stage renal disease on dialysis who had been having challenges with dialysis access was sent from dialysis center secondary to a nonfunctioning Perm-A-Cath. She denies uremic symptoms, chest pain, shortness of breath, PND or orthopnea. She is due to have Permcath placed today and undergo HD. Nephrology has been consulted to assist in her clinical care during her current hospital stay Review of Systems Review of Systems Yes all other systems are reviewed and are negative [facility] Past Medical History Medical History Mass of bladder Bladder mass Pacemaker History of adenomatous polyp of colon Cardiomyopathy Chronic kidney disease, stage 4 (severe) Hypertension Type 2 diabetes mellitus with diabetic nephropathy Social History Social History Household Members: Children Housing: Apartment Do you presently have visiting nurse or other home services: Yes Alcohol intake: never Comment: counts correct Patient Tobacco Use Status: Never used Tobacco service: No Current occupational status: disabled Gender identity: Female Meds Allergies Allergy/AdvReac Type Severity Reaction Status Date / Time No Known Allergies Allergy Verified 04/07/24 17:41 [No Known Allergies*] Active Medications: Current Medications Acetaminophen (Acetaminophen 325 Mg Tablet) 650 mg PO Q6H PRN PRN Reason: Pain, Mild (Pain Scale 1-3), fever or headache Last Admin: 04/10/24 09:26 Dose: 650 mg Amitriptyline HCl (Amitriptyline Hcl 50 Mg Tablet) 50 mg PO BEDTIME [facility] Last Admin: 04/09/24 21:20 Dose: 50 mg Aspirin (Aspirin Enteric Coated 81 Mg Tablet.Dr) 81 mg PO DAILY [facility] Last Admin: 04/10/24 09:23 Dose: 81 mg Calcitriol (Calcitriol 0.25 Mcg Capsule) 0.25 mcg PO DAILY [facility] Last Admin: 04/10/24 09:23 Dose: 0.25 mcg Calcium Carbonate (Calcium Carbonate 750 Mg Tab.Chew) 750 mg PO Q4H PRN PRN Reason: Heartburn Glucose (Glucose Gel 15 Gm Gel..Gram.) 15 gm PO Q15M PRN; Protocol PRN Reason: per Hypoglycemia Standing Ord. Heparin Sodium (Porcine) (Heparin Sodium,Porcine 5,000 Unit/Ml Vial) 5,000 unit SUBCUT Q12H [facility] Last Admin: 04/10/24 09:16 Dose: Not Given Dextrose (D10) 250 mls @ 750 mls/hr IV Q15M PRN; Protocol PRN Reason: per Hypoglycemia Standing Ord. Sodium Chloride (Ns) 100 mls @ 100 mls/hr IV ONCE ONE Stop: 04/10/24 15:11 Insulin Human Lispro (Insulin Lispro 100 Unit/Ml 3 Ml Vial) 0 unit SUBCUT QIDACHS [facility]; Protocol Last Admin: 04/10/24 12:27 Dose: Not Given Lorazepam (Lorazepam 0.5 Mg Tablet) 0.5 mg PO Q6H PRN PRN Reason: Anxiety Magnesium Hydroxide (Milk Of Magnesia 30 Ml Oral.Susp) 30 ml PO DAILY PRN PRN Reason: Constipation Melatonin (Melatonin 3 Mg Tablet) 6 mg PO BEDTIME PRN PRN Reason: Insomnia Last Admin: 04/09/24 21:20 Dose: 6 mg Metoprolol Tartrate (Metoprolol Tartrate 50 Mg Tablet) 50 mg PO BID [facility]; Protocol Last Admin: 04/10/24 09:23 Dose: 50 mg Omeprazole (Omeprazole 20 Mg Capsule.Dr) 20 mg PO BID@0630,1630 [facility] Last Admin: 04/10/24 06:01 Dose: 20 mg Ondansetron HCl (Ondansetron Hcl 4 Mg/2 Ml Vial) 4 mg IVPUSH Q8H PRN PRN Reason: Nausea and Vomiting Sodium Chloride (0.9 % Sodium Chloride Flush 3 Ml Syringe) 3 ml IVFLUSH QSHIFT [facility] Last Admin: 04/10/24 09:23 Dose: 3 ml Vitamin D (Cholecalciferol (Vitamin D3) 25 Mcg Tablet) 50 mcg PO DAILY [facility] Last Admin: 04/10/24 09:23 Dose: 50 mcg Home Medications ?Medication ?Instructions ?Recorded ?Confirmed ?Last Taken ?Type amitriptyline 50 mg tablet 50 mg PO BEDTIME 10/22/23 04/08/24 04/07/24 History aspirin 81 mg tablet,delayed 81 mg PO DAILY 10/22/23 04/08/24 04/07/24 History release cholecalciferol (vitamin D3) 50 50 mcg PO DAILY 0104/08/24 04/07/24 History mcg (2,000 unit) capsule (Vitamin D3) dulaglutide 1.5 mg/0.5 mL 1.5 mg subcut GORDON@0900 10/22/23 04/08/24 04/07/24 History subcutaneous pen injector (Trulicity) insulin lispro 100 unit/mL 1 sliding scale dose subcut TIDAC 10/22/23 04/08/24 04/07/24 History subcutaneous pen lancets 33 gauge (TRUEplus Lancets) #100 ea 10/22/23 01/20/24 Unknown History omeprazole 20 mg capsule,delayed 20 mg PO BID@0630,1630 10/22/23 04/08/24 04/07/24 History release pen needle, diabetic 32 gauge x #1,200 ea 10/22/23 01/20/24 Unknown History (Pentips) rosuvastatin 40 mg tablet 40 mg PO BEDTIME 10/22/23 04/08/24 04/07/24 History dapagliflozin propanediol 10 mg 10 mg PO DAILY 04/08/24 Unknown History tablet (Farxiga) ferrous sulfate 325 mg (65 mg 325 mg PO BEDTIME 04/08/24 04/08/24 04/07/24 History iron) tablet (FeroSul) insulin glargine 100 unit/mL (3 25 unit subcut BEDTIME 04/08/24 04/08/24 04/07/24 History mL) subcutaneous pen (Lantus Solostar U-100 Insulin) metoprolol tartrate 50 mg tablet 50 mg PO BID 04/08/24 04/08/24 04/07/24 History tramadol 50 mg tablet 50 mg PO Q6H PRN pain 04/08/24 04/08/24 Unknown History Physical Exam Vital Signs: Last Vital Signs Temp 97.0 F 04/10/24 12:00 Pulse 73 04/10/24 12:00 Resp 20 04/10/24 12:00 BP 164/79 H 04/10/24 12:00 Pulse Ox 100 04/10/24 12:00 O2 Del Method Room Air 04/10/24 12:00 BMI result Body Mass Index 28.3 Const General: no acute distress Orientation/consciousness: patient oriented x3 Eyes EOM: EOMs intact bilaterally Resp Auscultation: diminished lung sounds Cardio Rate: regular rate GI Palpation (GI): Soft to palpation Neuro General: patient oriented x3 and moves all extremities Extrem General: Yes no pedal edema Results Lab Results 04/09/24 06:37 04/10/24 06:25 Lab results: Chemistry 04/07/24 04/08/24 04/09/24 18:05 03:12 06:37 Sodium 130 L 130 L 134 L Potassium 6.1 H* D 4.8 D 4.7 Carbon Dioxide 20 L 20 L 20 L BUN 43 H 47 H 59 H Creatinine 7.17 H* 7.60 H* 9.10 H* Calcium 8.9 9.2 8.4 D 04/10/24 06:25 Sodium 137 Potassium 3.8 Carbon Dioxide 22 BUN 67 H Creatinine 9.68 H* Calcium 8.0 L Hematology 04/07/24 04/09/24 18:05 06:37 WBC 7.1 5.3 Hgb 8.2 L 7.1 L Plt Count 163 D 140 L Assessment and Plan (1) ESRD (end stage renal disease) on dialysis: Status: Acute Plan Usually gets HD on MWF For permcath today and HD post catheter Renal Diet; Phos binders with meal Would benefit from a unit of PRBC Volume optimization on HD Shall continue to closely follow up Procedures Date of Service Date of Service: 04/10/24
[2024-04-10 17:05] LABS: Glucose, Whole Blood 145 mg/dL (60-115)
[2024-04-10 20:51] LABS: Glucose, Whole Blood 330 mg/dL (60-115)
[2024-04-10] MEDS: Heparin Sodium,Porcine 5,000 UNIT/ML VIAL 5000 UNIT SUBCUT (21:46)
[2024-04-10] MEDS: Insulin Lispro 100 UNIT/ML 3 ML VIAL SUBCUT (21:47)
[2024-04-10] MEDS: Melatonin 3 MG TABLET 6 MG PO (21:47)
[2024-04-10] MEDS: Amitriptyline HCl 50 MG TABLET PO (21:47)
[2024-04-11] VITALS: BP 130/61; PULSE 74; RESP 20; TEMP 36.2; O2SAT 97
[2024-04-11] MEDS: Glucose Gel 15 GM GEL..GRAM. PO ×2 (01:33→01:50)
[2024-04-11 01:35] LABS: Glucose, Whole Blood 45 mg/dL (60-115)
[2024-04-11 01:59] LABS: Glucose, Whole Blood 60 mg/dL (60-115)
[2024-04-11 02:16] LABS: Glucose, Whole Blood 107 mg/dL (60-115)
[2024-04-11 03:59] VITALS: BP 148/70; PULSE 72; RESP 16; TEMP 36.2
[2024-04-11] MEDS: Omeprazole 20 MG CAPSULE.DR PO (06:05)
[2024-04-11] MEDS: Acetaminophen 325 MG TABLET 650 MG PO (06:06)
[2024-04-11 06:34] LABS: MANUAL DIFF FLAG NO
[2024-04-11 06:41] LABS: Basophils Absolute Auto 0.1 X10*3/uL (0.0-0.2); Basophils Percent Auto 0.8 % (0-2); Eosinophils Absolute Auto 0.2 X10*3/uL (0.0-0.4); Eosinophils Percent Auto 3.5 % (0-4); Hematocrit 27.8 % (37.0-47.0); Hemoglobin 9.4 g/dl (12.0-16.0); Imm Gran Abs Auto 0.02 X10*3/uL (0.00-0.03); Imm Gran Pct Auto 0.3 % (0.0-0.4); Lymphocytes Absolute Auto 1.3 X10*3/uL (1.2-4.9); Lymphocytes Percent Auto 20.5 % (20-40); Mean Corpuscular HGB Conc 33.8 g/dl (31.0-35.0); Mean Corpuscular Hemoglobin 29.7 pg (27.0-33.0); Mean Platelet Volume 10.2 fL (9.4-12.3); Monocytes Absolute Auto 0.6 X10*3/uL (0.1-1.2); Monocytes Percent Auto 8.9 % (2-11); Neutrophils Absolute Auto 4.1 x10*3/uL (2.0-8.3); Platelet Count 157 X10*3/uL (160-400); Red Blood Count 3.16 X10*6/uL (4.20-5.50); Red Cell Distribution Width 14.8 % (11.0-16.0); White Blood Count 6.2 X10*3/uL (4.8-10.8)
[2024-04-11 07:08] LABS: Alanine Aminotransferase 8 U/L (0-31); Albumin Level 3.1 g/dL (3.5-5.0); Alkaline Phosphatase 99 U/L (39-117); Anion Gap 16 (12-20); Aspartate Amino Transferase 15 U/L (5-31); Bilirubin Total 0.4 mg/dL (0.0-1.0); Blood Urea Nitrogen 34 mg/dL (9-16); Calcium 8.7 mg/dL (8.4-10.2); Carbon Dioxide 22 mmol/L (22-29); Chloride 98 mmol/L (96-108); Creatinine Clr Calc Pharmacy 9.9; Estimated Glomerular Filt Rate 8; Glucose Random 129 mg/dL (60-115); Potassium 3.8 mmol/L (3.3-5.1); Sodium 132 mmol/L (135-145); Total Protein 6.7 g/dL (6.5-8.0)
[2024-04-11 07:48] LABS: Glucose, Whole Blood 116 mg/dL (60-115)
[2024-04-11] MEDS: 0.9 % Sodium Chloride Flush 3 ML SYRINGE IVFLUSH ×2 (07:53)
[2024-04-11 07:55] VITALS: BP 144/62; PULSE 75; RESP 20; TEMP 36.3; O2SAT 100
[2024-04-11] MEDS: Heparin Sodium,Porcine 5,000 UNIT/ML VIAL 5000 UNIT SUBCUT (08:01)
[2024-04-11] MEDS: Metoprolol Tartrate 50 MG TABLET PO (08:02)
[2024-04-11] MEDS: calcitrioL 0.25 MCG CAPSULE PO (08:02)
[2024-04-11] MEDS: Aspirin Enteric Coated 81 MG TABLET.DR PO (08:02)
[2024-04-11] MEDS: Cholecalciferol (Vitamin D3) 25 MCG TABLET 50 MCG PO (08:02)
--- NOTE | 2024-04-11 09:59 | PM.PNNEP ---
Subjective Subjective Date of Service: 04/11/24 Interval history: no acute issues overnight. Had HD yesterday; S/P new permcath which is functioning well. Wants to go home Physical Exam Vital Signs: Vital Signs: Last Vital Signs Temp 97.4 F 04/11/24 07:55 Pulse 75 04/11/24 07:55 Resp 20 04/11/24 07:55 BP 144/62 H 04/11/24 07:55 Pulse Ox 100 04/11/24 07:55 O2 Del Method Room Air 04/11/24 07:55 BMI result Body Mass Index 28.3 Const: General: comfortable Orientation/consciousness: patient oriented x3 Eyes: EOM: EOMs intact bilaterally Resp: Auscultation: diminished lung sounds Cardio: Rate: regular rate GI: Palpation (GI): Soft to palpation Neuro: General: patient oriented x3 and moves all extremities Objective Data Labs 04/11/24 05:40 04/11/24 05:40 Labs: Laboratory Results - last 24 hr 04/10/24 04/10/24 04/10/24 12:07 15:07 17:01 WBC RBC Hgb Hct MCV MCH MCHC RDW Plt Count MPV Immature Gran % (Auto) Neut % (Auto) Lymph % (Auto) [place] % (Auto) Eos % (Auto) Baso % (Auto) Lymph # (Auto) [place] # (Auto) Eos # (Auto) Baso # (Auto) Abs Immat Gran (auto) Absolute Neuts (auto) Absolute Nucleated RBC Nucleated RBC % (auto) Sodium Potassium Chloride Carbon Dioxide Anion Gap BUN Creatinine Estim Creat Clear Calc Estimated GFR POC Glucose 113 145 H Random Glucose Calcium Total Bilirubin AST ALT Alkaline Phosphatase Total Protein Albumin Blood Type O Negative Antibody Screen POSITIVE Antibody Identification Anti-Jkb Crossmatch ([facility]) See Detail 04/10/24 04/11/24 04/11/24 20:33 01:29 01:47 WBC RBC Hgb Hct MCV MCH MCHC RDW Plt Count MPV Immature Gran % (Auto) Neut % (Auto) Lymph % (Auto) [place] % (Auto) Eos % (Auto) Baso % (Auto) Lymph # (Auto) [place] # (Auto) Eos # (Auto) Baso # (Auto) Abs Immat Gran (auto) Absolute Neuts (auto) Absolute Nucleated RBC Nucleated RBC % (auto) Sodium Potassium Chloride Carbon Dioxide Anion Gap BUN Creatinine Estim Creat Clear Calc Estimated GFR POC Glucose 330 H 45 L* 60 Random Glucose Calcium Total Bilirubin AST ALT Alkaline Phosphatase Total Protein Albumin Blood Type Antibody Screen Antibody Identification Crossmatch ([facility]) 04/11/24 04/11/24 04/11/24 02:12 05:40 07:37 WBC 6.2 RBC 3.16 L D Hgb 9.4 L D Hct 27.8 L D MCV 88.0 MCH 29.7 MCHC 33.8 RDW 14.8 Plt Count 157 L MPV 10.2 Immature Gran % (Auto) 0.3 Neut % (Auto) 66.0 Lymph % (Auto) 20.5 [place] % (Auto) 8.9 Eos % (Auto) 3.5 Baso % (Auto) 0.8 Lymph # (Auto) 1.3 [place] # (Auto) 0.6 Eos # (Auto) 0.2 Baso # (Auto) 0.1 Abs Immat Gran (auto) 0.02 Absolute Neuts (auto) 4.1 Absolute Nucleated RBC 0.000 Nucleated RBC % (auto) 0.0 Sodium 132 L Potassium 3.8 Chloride 98 Carbon Dioxide 22 Anion Gap 16 BUN 34 H Creatinine 5.27 H* Estim Creat Clear Calc 9.9 Estimated GFR 8 POC Glucose 107 116 H Random Glucose 129 H Calcium 8.7 D Total Bilirubin 0.4 AST 15 ALT 8 Alkaline Phosphatase 99 Total Protein 6.7 Albumin 3.1 L Blood Type Antibody Screen Antibody Identification Crossmatch ([facility]) Procedures Date of Service Date of Service: 04/11/24 Assessment & Plan Assessment and plan (1) ESRD (end stage renal disease) on dialysis: Status: Acute Plan Usually gets HD on MWF S/P permcath yesterday and had HD post catheter Renal Diet; Phos binders with meal Volume optimization on HD- next HD tomorrow Could be D/Josue from a renal perspective Shall continue to closely follow up in out pt HD Unit Progress Note: Quality Stroke Does the patient have a stroke diagnosis?: No
[2024-04-11 11:02] LABS: Glucose, Whole Blood 257 mg/dL (60-115)
[2024-04-11 11:15] VITALS: BP 125/60; PULSE 77; RESP 20; TEMP 36.3; O2SAT 100
--- NOTE | 2024-04-11 11:38 | PM.DS ---
DS: Providers Provider Date of Service: 04/11/24 Date of admission: 04/08/24 07:49 Date of discharge: 04/11/24 Primary care physician: Anne Talamantes DO Consults: 04/09/24 13:35 Consult to Nephrology Routine Consulting Provider: [facility] Reason for consultation: Hemodialysis Has provider been notified: Yes DS: Diagnosis Discharge Diagnosis (1) ESRD (end stage renal disease) on dialysis: Status: Acute DS: Summary Hospital Course Hospital Course: 58-year-old female with known end-stage renal disease on dialysis was sent from dialysis center secondary to a nonfunctioning Port-A-Cath. Found to be hyponatremic in the emergency room. Case discussed with Renal who recommends admission following labs with Port-A-Cath change next available slot Hospital Course Patient admitted to telemetry where monitor failed to demonstrate any acute dysrhythmias. She was maintained on Lokelma until Port-A-Cath could be change. Port-A-Cath change 04/10/2024 and hemodialysis was immediately thereafter. Blood count did trend downward and renal recommended 1 unit of packed red cells which the patient received with good response. At this point in time from renal standpoint and medical standpoint she is acceptable for discharge to follow up with her regular dialysis schedule and her PCP next available Time Attestation Discharge Coordination Time (in mins): 35 Quality: Safe Use of Opioids Does Pt have an Active Cancer Diagnosis on the Problem List?: No Quality: Stroke Does the patient have a stroke diagnosis?: No Physical Exam Vital Signs: Vital Signs: Last Vital Signs Temp 97.3 F 04/11/24 11:15 Pulse 77 04/11/24 11:15 Resp 20 04/11/24 11:15 BP 125/60 04/11/24 11:15 Pulse Ox 100 04/11/24 11:15 O2 Del Method Room Air 04/11/24 11:15 BMI result Body Mass Index 28.3 Const: Other: Awake alert no acute distress. Somewhat anxious appearing Resp: Other: Clear to auscultation bilaterally no rales rhonchi or wheezes Cardio: Other: No S4; positive S1-S2; no S3 murmurs rubs or gallops GI: Other: Soft nontender nondistended normoactive bowel sounds Extrem: Other: No edema bilaterally DS: Data Data Completed and Pending Completed studies during hospitalization [Text1]: Procedures Destruction of Bladder, Via Natural or Artificial Opening Endoscopic (03/03/24) Excision of Bladder, Via Natural or Artificial Opening Endoscopic (03/03/24) Insertion of Infusion Device into Superior Vena Cava, Percutaneous Approach (03/03/24) Insertion of Tunneled Vascular Access Device into Chest Subcutaneous Tissue and Fascia, Percutaneous Approach (03/03/24) Performance of Urinary Filtration, Intermittent, Less than 6 Hours Per Day (03/03/24) Transfusion of Nonautologous Red Blood Cells into Peripheral Vein, Percutaneous Approach (03/03/24) Ultrasonography of Superior Vena Cava, Guidance (03/03/24) Labs on day of discharge: Laboratory Results - last 24 hr 04/10/24 04/10/24 04/10/24 12:07 15:07 17:01 WBC RBC Hgb Hct MCV MCH MCHC RDW Plt Count MPV Immature Gran % (Auto) Neut % (Auto) Lymph % (Auto) [place] % (Auto) Eos % (Auto) Baso % (Auto) Lymph # (Auto) [place] # (Auto) Eos # (Auto) Baso # (Auto) Abs Immat Gran (auto) Absolute Neuts (auto) Absolute Nucleated RBC Nucleated RBC % (auto) Sodium Potassium Chloride Carbon Dioxide Anion Gap BUN Creatinine Estim Creat Clear Calc Estimated GFR POC Glucose 113 145 H Random Glucose Calcium Total Bilirubin AST ALT Alkaline Phosphatase Total Protein Albumin Blood Type O Negative Antibody Screen POSITIVE Antibody Identification Anti-Jkb Crossmatch ([facility]) See Detail 04/10/24 04/11/24 04/11/24 20:33 01:29 01:47 WBC RBC Hgb Hct MCV MCH MCHC RDW Plt Count MPV Immature Gran % (Auto) Neut % (Auto) Lymph % (Auto) [place] % (Auto) Eos % (Auto) Baso % (Auto) Lymph # (Auto) [place] # (Auto) Eos # (Auto) Baso # (Auto) Abs Immat Gran (auto) Absolute Neuts (auto) Absolute Nucleated RBC Nucleated RBC % (auto) Sodium Potassium Chloride Carbon Dioxide Anion Gap BUN Creatinine Estim Creat Clear Calc Estimated GFR POC Glucose 330 H 45 L* 60 Random Glucose Calcium Total Bilirubin AST ALT Alkaline Phosphatase Total Protein Albumin Blood Type Antibody Screen Antibody Identification Crossmatch ([facility]) 04/11/24 04/11/24 04/11/24 02:12 05:40 07:37 WBC 6.2 RBC 3.16 L D Hgb 9.4 L D Hct 27.8 L D MCV 88.0 MCH 29.7 MCHC 33.8 RDW 14.8 Plt Count 157 L MPV 10.2 Immature Gran % (Auto) 0.3 Neut % (Auto) 66.0 Lymph % (Auto) 20.5 [place] % (Auto) 8.9 Eos % (Auto) 3.5 Baso % (Auto) 0.8 Lymph # (Auto) 1.3 [place] # (Auto) 0.6 Eos # (Auto) 0.2 Baso # (Auto) 0.1 Abs Immat Gran (auto) 0.02 Absolute Neuts (auto) 4.1 Absolute Nucleated RBC 0.000 Nucleated RBC % (auto) 0.0 Sodium 132 L Potassium 3.8 Chloride 98 Carbon Dioxide 22 Anion Gap 16 BUN 34 H Creatinine 5.27 H* Estim Creat Clear Calc 9.9 Estimated GFR 8 POC Glucose 107 116 H Random Glucose 129 H Calcium 8.7 D Total Bilirubin 0.4 AST 15 ALT 8 Alkaline Phosphatase 99 Total Protein 6.7 Albumin 3.1 L Blood Type Antibody Screen Antibody Identification Crossmatch ([facility]) 04/11/24 10:55 WBC RBC Hgb Hct MCV MCH MCHC RDW Plt Count MPV Immature Gran % (Auto) Neut % (Auto) Lymph % (Auto) [place] % (Auto) Eos % (Auto) Baso % (Auto) Lymph # (Auto) [place] # (Auto) Eos # (Auto) Baso # (Auto) Abs Immat Gran (auto) Absolute Neuts (auto) Absolute Nucleated RBC Nucleated RBC % (auto) Sodium Potassium Chloride Carbon Dioxide Anion Gap BUN Creatinine Estim Creat Clear Calc Estimated GFR POC Glucose 257 H Random Glucose Calcium Total Bilirubin AST ALT Alkaline Phosphatase Total Protein Albumin Blood Type Antibody Screen Antibody Identification Crossmatch ([facility]) Discharge Plan Discharge Anticipated Discharge Date/Time: 04/11/24 11:35 Patient Disposition: Home Health Service Discharge Diagnosis: Complications associated with dialysis catheter Referrals: Anne Talamantes DO [Primary Care Provider] - 1 Week Discharge Medications: Continued tramadol 50 mg tablet 50 mg PO Q6H PRN (Reason: pain) ferrous sulfate [FeroSul] 325 mg (65 mg iron) tablet 325 mg PO BEDTIME metoprolol tartrate 50 mg tablet 50 mg PO BID insulin glargine [Lantus Solostar U-100 Insulin] 100 unit/mL (3 mL) insulin pen 25 unit subcut BEDTIME dapagliflozin propanediol [Farxiga] 10 mg tablet 10 mg PO DAILY (DME) lancets [TRUEplus Lancets] 33 gauge misc See Rx Instructions .ROUTE .MEDSUPPLY Qty: 100 Rx Instructions: As directed (DME) pen needle, diabetic [Pentips] 32 gauge x 5/32 needle See Rx Instructions .ROUTE DIRECTED Qty: 1200 Rx Instructions: As directed insulin lispro 100 unit/mL insulin pen 1 sliding scale dose subcut TIDAC omeprazole 20 mg capsule,delayed release(DR/EC) 20 mg PO BID@0630,1630 amitriptyline 50 mg tablet 50 mg PO BEDTIME Trulicity 1.5 mg/0.5 mL pen injector 1.5 mg subcut GORDON@0900 cholecalciferol (vitamin D3) [Vitamin D3] 50 mcg (2,000 unit) capsule 50 mcg PO DAILY rosuvastatin 40 mg tablet 40 mg PO BEDTIME aspirin 81 mg tablet,delayed release (DR/EC) 81 mg PO DAILY Hold Instructions: hold for one week calcitriol 0.25 mcg capsule 0.25 mcg PO DAILY 30 Days Qty: 30 3RF Discharge Orders: Discharge Order (Routine); Ordered 04/11/24 Ordered By: Milton Ortega Diet: Advance to usual diet Activity on Discharge: As tolerated Stand Alone Forms: Patient Portal Discharge page Print Language: Panamanian Care Plan Goals: Resume all medications as taken prior to the hospital Health Concerns: Resume your regular dialysis schedule Plan of Treatment: Follow-up with PCP and Nephrology as scheduled Assessment: See discharge summary
[2024-04-11] MEDS: Insulin Lispro 100 UNIT/ML 3 ML VIAL SUBCUT (11:49)
--- NOTE | 2024-04-11 12:30 | MHC.CM.PN ---
Pt is medically cleared for discharge today with resumption of [employer] services, [facility] services, and outpt HD. Pt has arranged for her own transportation home.
== END 2024-04-11 13:56 | disposition home health service (06) | DRG 466 ==
LOC: HO.ED 04-08 07:12 → HO.EDOVER 04-08 08:03 → HO.IMC 04-08 14:28
PROVIDERS: Nurse Practitioner Family; Student in an Organized Health Care Education/Training Program; Admitting Provider Hospitalist; Emergency Provider Emergency Medicine; PCP Family Medicine; Visit Provider Hospitalist
PROC: 0J2TXYZ Change Other Device in Trunk Subcutaneous Tissue and Fascia, External Approach (ICD-10-PCS; principal; 2024-04-10 10:30)
DX: T82.49XA Other complication of vascular dialysis catheter, initial encounter (principal); N18.6 End stage renal disease; E11.22 Type 2 diabetes mellitus with diabetic chronic kidney disease; E87.1 Hypo-osmolality and hyponatremia; I12.9 Hypertensive chronic kidney disease with stage 1 through stage 4 chronic kidney disease, or unspecified chronic kidney disease; Y82.8 Other medical devices associated with adverse incidents; E87.5 Hyperkalemia; Z99.2 Dependence on renal dialysis; Z91.158 Patient's noncompliance with renal dialysis for other reason; Z79.4 Long term (current) use of insulin; Z79.82 Long term (current) use of aspirin; Z79.85 Long-term (current) use of injectable non-insulin antidiabetic drugs; Z79.899 Other long term (current) drug therapy
CPT/HCPCS: 36415; 36581; 71045; 80048; 80053; 82947; 83735; 85025; 85610; 86850; 86870; 86880; 86900; 86901; 86902; 86920; 86922; 90999; 93005; 94640; 99285; C1750; J0613; J1644; P9016

== ENCOUNTER → 2024-04-07 18:42 | Outpatient (BNV) | payer MEDICAID, SELFPAY | PROVIDERS: Admitting Provider Hospitalist; Emergency Provider Emergency Medicine; PCP Family Medicine; Visit Provider Internal Medicine Cardiovascular Disease | DX: R94.31 Abnormal electrocardiogram [ECG] [EKG] (principal) | CPT/HCPCS: 93010 ==

== ENCOUNTER 2024-04-08 07:49 | Outpatient (BNV) | payer MEDICAID, SELFPAY | END 2024-04-09 11:55 | PROVIDERS: Admitting Provider Hospitalist; Emergency Provider Emergency Medicine; PCP Family Medicine; Visit Provider Physician Assistant Surgical | DX: T82.514A Breakdown (mechanical) of infusion catheter, initial encounter (principal) | CPT/HCPCS: 36581; 77001 ==

== ENCOUNTER → 2024-04-08 07:49 | Outpatient (BNV) | payer MEDICAID, SELFPAY | PROVIDERS: Admitting Provider Hospitalist; Emergency Provider Emergency Medicine; PCP Family Medicine; Visit Provider Internal Medicine Hypertension Specialist | DX: N18.6 End stage renal disease (principal); Z99.2 Dependence on renal dialysis | CPT/HCPCS: 90935; 99232; 99499 ==

== ENCOUNTER → 2024-04-08 07:49 | Outpatient (BNV) | payer MEDICAID, SELFPAY | PROVIDERS: Admitting Provider Hospitalist; Emergency Provider Emergency Medicine; PCP Family Medicine; Visit Provider Hospitalist | DX: T82.49XA Other complication of vascular dialysis catheter, initial encounter (principal); E11.22 Type 2 diabetes mellitus with diabetic chronic kidney disease; N18.6 End stage renal disease; Z99.2 Dependence on renal dialysis; Z79.4 Long term (current) use of insulin | CPT/HCPCS: 99223; 99233; 99239 ==

== ENCOUNTER 2024-04-18 10:31 | Day surgery (SDC) | payer MEDICAID, SELFPAY ==
--- NOTE | ~2024-04-18 | CT_ITS ---
Bladder cancer with a new right retroperitoneal mass PROCEDURES: 1. Limited preprocedure CT of the abdomen. Permanent images saved in PACS. 2. CT-guided biopsy of the right retroperitoneal mass. 3. Limited postprocedure CT of the abdomen. Permanent images saved in PACS. CLINICIANS: Juan Biggs PA-C MEDICATIONS: -Versed 0.5 mg, Fentanyl 25 mcg, and lidocaine 1% 10 mL SQ -Antibiotics: None -For additional details, please see nursing flowsheet. COMPLICATIONS: None ESTIMATED BLOOD LOSS: < 5 ml CONTRAST: None SPECIMENS: 4 x 20 g cores were sent for pathology MODERATE SEDATION TIME: 15 min PROCEDURE NOTE: The procedure, risks, benefits, and alternatives were carefully explained to the patient and written informed consent was obtained. The patient was placed prone on the CT table. A timeout was performed. A limited CT of the abdomen was performed to localize the right retroperitoneal mass and choose appropriate needle entry and trajectory. The patient was prepped and draped in usual sterile fashion. The skin and deeper soft tissues were anesthetized with lidocaine. Under CT guidance, a 19 gague trocar needle was advanced to the right retroperitoneum mass. A 20 gauge biopsy device was inserted through the trocar needle and advanced into the mass. A total of 4 cores were performed. The specimens were placed in formalin and sent to pathology. The needle was removed. A dry dressing was applied and secured with Tegaderm. There were no immediate complications. The patient was stable after the procedure and was transferred to the post anesthesia care unit. The procedure was done under moderate sedation with a dedicated nurse for monitoring of vital signs. CT/CT biopsy abdomen percutaneous Impression: CT-guided right retroperitoneal mass biopsy This procedure was performed by Juan Biggs PA-C and supervised by Dr. Contreras.
--- NOTE | 2024-04-18 11:00 | PC.NURSE ---
Patient in preop. teletypesetter monitor showing a possible new inverted t wave. Last EKG from March 2024 showing v paced rhythm. Herrera Biggs made aware. New EKG obtained per order. No T wave inversion noted. Herrera made aware. Herrera also made aware patient has not taken any meds, including metoprolol, for 2 days.
--- NOTE | 2024-04-18 11:27 | ECG_ITS ---
Test Reason : INVERTED T WAVE Blood Pressure : / mmHG Vent. Rate : 093 BPM Atrial Rate : 093 BPM P-R Int : 130 ms QRS Dur : 122 ms QT Int : 386 ms P-R-T Axes : 078 -23 137 degrees QTc Int : 479 ms Atrial-sensed ventricular-paced rhythm Abnormal ECG When compared with ECG of 07-APR-2024 19:01, Vent. rate has increased BY 12 BPM Referred By: Juan Biggs Electronically Signed By:PONCE HENDERSON
[2024-04-18 12:39] VITALS: BMI 28.3
[2024-04-18 12:50] LABS: Glucose, Whole Blood 156 mg/dL (60-115)
--- NOTE | 2024-04-18 13:07 | MHC.SHP ---
Pre-Procedural Eval Section A - 24 Hr Update-Section A only Date of Service: 04/18/24 Section B - Complete if H&P > 30 days Chief Complaint: ct biopsy renal RT Details of Present Illness: 58 y/o female with bladder cancer who presents with a right retroperitoneal mass Relevant Family History (Specify if Yes): No Relevant Social History: None Present Medications: see Short Stay Collaborative assessment Medical History: Significant History (ESRD on HD, bladder ca) History of Previous Operations: Relevant previous surgery/procedure and date(s) Allergies: Allergies Allergy/AdvReac Type Severity Reaction Status Date / Time No Known Allergies Allergy Verified 04/18/24 12:40 [No Known Allergies*] Review of Systems Sugical H&P ROS: Negative: Cardiovascular, Respiratory and Neurological Exam Surgical H&P Exam: Normal: Heart, Normal: Lungs, Normal: Skin and Normal: Neurological Plan CT right retroperitoneal mass biopsy Time Spent With Patient Time: Total time managing care of this patient today ____ minutes.
[2024-04-18 13:50] VITALS: BP 138/70; PULSE 95; RESP 16; TEMP 36.4; O2SAT 99
[2024-04-18 14:05] VITALS: BP 147/69; PULSE 95; RESP 16; O2SAT 98
[2024-04-18 14:20] VITALS: BP 151/63; PULSE 98; RESP 16; TEMP 36.4; O2SAT 97
== END 2024-04-18 14:35 | disposition home or self-care (01) ==
PROVIDERS: Radiology Vascular & Interventional Radiology; PCP Family Medicine; Visit Provider Internal Medicine
DX: C67.9 Malignant neoplasm of bladder, unspecified (principal); C48.0 Malignant neoplasm of retroperitoneum; E11.22 Type 2 diabetes mellitus with diabetic chronic kidney disease; I12.0 Hypertensive chronic kidney disease with stage 5 chronic kidney disease or end stage renal disease; N18.5 Chronic kidney disease, stage 5; Z99.2 Dependence on renal dialysis; I42.9 Cardiomyopathy, unspecified; Z95.0 Presence of cardiac pacemaker; Z79.4 Long term (current) use of insulin; Z79.82 Long term (current) use of aspirin; Z79.85 Long-term (current) use of injectable non-insulin antidiabetic drugs; Z79.899 Other long term (current) drug therapy
CPT/HCPCS: 49180; 77012; 82947; 88304; 88305; 88341; 88342; 93005; 99152; J2250; J2310; J3010

== ENCOUNTER → 2024-04-18 11:27 | Outpatient (BNV) | payer MEDICAID, SELFPAY | PROVIDERS: PCP Family Medicine; Visit Provider Internal Medicine | DX: R94.31 Abnormal electrocardiogram [ECG] [EKG] (principal) | CPT/HCPCS: 93010 ==

== ENCOUNTER 2024-04-21 10:36 | Outpatient (AMB) | payer MEDICAID, SELFPAY ==
--- NOTE | 2024-04-21 10:50 | MHC.OFFVIS ---
Intake Visit Reasons: TURBT/Bladder bx- follow up Intake Note: Patient is present for TURBT/BLADDER BX F/U Urology Medication:NONE Antibiotic Allergy:NONE Blood Thinner:ASPIRIN Hvac Sales Representative Required: No Allergies No Known Allergies [No Known Allergies*] Allergy (Verified 06/28/24 08:27) HPI Comments Details: Jazmine is a pleasant [place]-speaking female. She is a patient of . She is seen for the following urologic conditions - high-grade invasive bladder cancer Discussed findings Has metastatic disease on imaging Following with Oncology Seen in three-month stone for check cystoscopy in office and to review imaging High-grade, invasive bladder cancer superficial TURBT 03/20 T1HG PFSH Medical History ESRD (end stage renal disease) on dialysis Mass of bladder Bladder mass Pacemaker History of adenomatous polyp of colon Cardiomyopathy Chronic kidney disease, stage 4 (severe) Hypertension Type 2 diabetes mellitus with diabetic nephropathy Surgical History History of ankle surgery History of biopsy Social History Household Members: Children Housing: Apartment Do you presently have visiting nurse or other home services: Yes Alcohol intake: never Patient Tobacco Use Status: Never used Tobacco Use of substances other than those prescribed or required for medical reasons: No Do you feel safe in your current relationship?: No Current Relationship Do you have thoughts of harming others: None Do you have a plan to hurt others: No Plan service: No Current occupational status: disabled Gender identity: Female Review of Systems Const Denies chills and Denies fever(s) Card Reports no additional complaints and Denies syncope Resp Denies cough GI Denies abdominal pain and Denies heartburn Reports as per HPI and Denies change in libido Neuro Denies syncope Psych Denies change in libido Endo Denies change in libido Physical Exam Const General: cooperative, healthy appearing, comfortable and no acute distress Orientation/consciousness: patient oriented x3 HEENT Face and sinus: Yes normal facial exam Mouth: moist mucous membranes Neck Neck: Yes normal visual inspection, Yes full ROM and Yes trachea midline Chest Chest palpation & inspection: normal inspection of the chest Resp Effort & Inspection: normal respiratory effort, able to speak in complete sentences and no respiratory distress GI Inspection: Yes normal to inspection Back/Spine/Pelvis Cervical Spine: normal cervical lordosis Thoracic/Lumbar Spine: thoracic and lumbar spine normal to inspection Skin General skin exam: no rashes or lesions noted Neuro General: patient oriented x3, gait normal, tone normal and moves all extremities Extrem General: Yes normal to inspection and Yes capillary refill normal Results AMB Urinalysis, Automated UA Leukoctes 500 Rubin/uL Last Edit by JOSE Penaloza on 04/21/24 11:01 UA Nitrite Negative Last Edit by JOSE Penaloza on 04/21/24 11:01 UA Urobilinogen 0.2 mg/dL Last Edit by JOSE Penaloza on 04/21/24 11:01 UA Protein 300 mg/dL Last Edit by JOSE Penaloza on 04/21/24 11:01 UA pH 7.0 Last Edit by JOSE Penaloza on 04/21/24 11:01 UA Blood 200 Gonzalo/uL Last Edit by JOSE Penaloza on 04/21/24 11:01 UA Specific Lamar 1.010 Last Edit by JOSE Penaloza on 04/21/24 11:01 UA Ketone Negative Last Edit by JOSE Penaloza on 04/21/24 11:01 UA Bilirubin 0 mg/dL Last Edit by JOSE Penaloza on 04/21/24 11:01 UA Glucose 250 mg/dL Last Edit by JOSE Penaloza on 04/21/24 11:01 Results Reviewed Results Reviewed: Laboratory Last Values Urine pH (Auto) 7.0 04/21/24 11:00 Specific Lamar (Auto) 1.010 04/21/24 11:00 Urine Protein (Auto) 300 mg/dL 04/21/24 11:00 Glucose (UA)(Auto) 250 mg/dL 04/21/24 11:00 Urine Ketones (Auto) Negative 04/21/24 11:00 Urine Blood (Auto) 200 Gonzalo/uL 04/21/24 11:00 Urine Nitrite (Auto) Negative 04/21/24 11:00 Urine Bilirubin (Auto) 0 mg/dL 04/21/24 11:00 Urine Urobilinogen (Auto) 0.2 mg/dL 04/21/24 11:00 Leukocyte Esterase (Auto) 500 Rubin/uL 04/21/24 11:00 Assessment & Plan Assessment & Plan (1) Bladder cancer: Code(s): C67.9 - Malignant neoplasm of bladder, unspecified Category: Medical Plan Three-month follow-up check cystoscopy Orders: Orders AMB Urinalysis Automated 04/21/24 Z13.9 - Encounter for screening, unspecified Patient Instructions: Imaging studies, laboratory and physical exam results were discussed and reviewed in detail. No major barriers to patient understanding were identified. An opportunity to ask questions regarding the treatment plan was provided. All questions were answered. The patient expressed understanding and agreement with the above treatment plan. The patient is aware they should contact our office by phone for worsening of their current condition or the appearance of new urologic symptoms. Compliance is encouraged with any medications and followup testing that is ordered. It is a privilege to participate in the urologic care of your patient. If you have any questions or concerns regarding treatment for the above conditions, or other urologic issues, please do not hesitate to contact me. The office telephone contact is [phone]. This note is constructed using voice recognition software. While every effort has been made to ensure accuracy shucker errors may have been included. Yours sincerely, Dr Jung Maxwell MD, [facility] - Urology Providers of Expert, Compassionate Care for the Genitourinary System Coding Level of Care Code Est Pt Level 4 (59579) Diagnoses Bladder cancer C67.9
== END 2024-04-21 11:41 | disposition home or self-care (01) ==
PROVIDERS: PCP Family Medicine; Referring Provider Family Medicine; Visit Provider Urology
DX: C67.9 Malignant neoplasm of bladder, unspecified (principal)
CPT/HCPCS: 99214

== ENCOUNTER → 2024-04-21 10:36 | Outpatient (BNVA) | payer MEDICAID, SELFPAY | PROVIDERS: PCP Family Medicine; Visit Provider Urology | DX: C67.9 Malignant neoplasm of bladder, unspecified (principal) | CPT/HCPCS: 81003; 99212 ==

== ENCOUNTER → 2024-04-27 | Outpatient (BNV) | payer MEDICAID, SELFPAY | PROVIDERS: PCP Family Medicine; Visit Provider Internal Medicine Nephrology | DX: N18.6 End stage renal disease (principal) | CPT/HCPCS: 90961 ==

== ENCOUNTER → 2024-05-03 10:26 | Day surgery (SDC) | payer MEDICAID, SELFPAY ==
--- NOTE | ~2024-05-03 | IR_ITS ---
History: 58-year-old female with need for medium-term IV access for chemotherapy. Bladder cancer. Central venous occlusive disease. Procedure performed: 1. Ultrasound and fluoroscopically guided placement of a single-lumen midline via the right basilic vein. Physician: Christophe Espinal MD FSIR Anesthesia: 9 mL of 1% lidocaine was utilized for local anesthesia Specimen: None Drain: None Estimated blood loss: Minimal Complications: None Procedure in detail: Informed and written consent was obtained. The patient was positioned supine on the angiography table with sterile preparation of his right arm. A tourniquet was applied. Ultrasound of the arm showed wide patency of the right basilic vein and this was selected for access. 1% lidocaine was injected subcutaneously and extended to the edge of the vein. A small incision was made in the skin with a #11 blade. Through the incision and under ultrasound guidance with permanent recordings and direct visualization of needle entry into the vein, the right basilic vein was catheterized in an antegrade fashion. A wire was threaded centrally and used for measurement. The peel-away sheath was placed over the wire. A single-lumen midline line was trimmed to length measuring 20 cm and inserted through the peel-away sheath. A saved fluoroscopic image shows that the midline terminates at the right atrium. The PICC line was tested and flushes and aspirates appropriately. It was locked and secured to the skin with a StatLock device and overlying sterile dressing. Summary: Successful ultrasound and fluoroscopic guided midline that terminates in the right atrium and is ready for immediate use. Electronically signed by: Juan Pablo Espinal MD 05/25/2024 05:28 PM EDT
[2024-05-03 11:05] VITALS: BMI 29.1
--- NOTE | 2024-05-03 11:30 | PC.NURSE ---
Patient brought in $500 ma. Counted at bedside with second RN, patient, and motor vehicle parts interpreter. Sealed in valuables envelope and sent to security. light bulb assembler made aware.
[2024-05-03 12:30] LABS: Glucose, Whole Blood 163 mg/dL (60-115)
== END ==
PROVIDERS: Radiology Vascular & Interventional Radiology; PCP Family Medicine; Visit Provider Internal Medicine
DX: Z45.2 Encounter for adjustment and management of vascular access device (principal); C67.9 Malignant neoplasm of bladder, unspecified
CPT/HCPCS: 36573; 82947; C1751; J0131; J0690; J1644; J2250; J2310; J3010

== ENCOUNTER → 2024-05-03 14:14 | Outpatient (BNV) | payer MEDICAID, SELFPAY | PROVIDERS: PCP Family Medicine; Visit Provider Radiology Vascular & Interventional Radiology | DX: C67.9 Malignant neoplasm of bladder, unspecified (principal) | CPT/HCPCS: 36573 ==

== ENCOUNTER 2024-05-11 14:12 | Outpatient (REF) | payer MEDICAID, SELFPAY | END 2024-05-11 14:13 | disposition home or self-care (01) | LOC: HO.XRAY 14:12 | PROVIDERS: PCP Family Medicine; Visit Provider Internal Medicine Medical Oncology | DX: Z13.89 Encounter for screening for other disorder (principal) ==

== ENCOUNTER → 2024-05-28 | Outpatient (BNV) | payer MEDICAID, SELFPAY | PROVIDERS: PCP Family Medicine; Visit Provider Internal Medicine Nephrology | DX: N18.6 End stage renal disease (principal) | CPT/HCPCS: 90961 ==

== ENCOUNTER 2024-06-20 13:40 | Day surgery (SDC) | payer MEDICAID, SELFPAY ==
--- NOTE | ~2024-06-20 | IR_ITS ---
CLINICAL HISTORY: Poorly functioning Permacath. PROCEDURES: 1. Replacement of a 14.5 fr 27 cm tunneled, dual-lumen hemodialysis catheter. Clinician: Juan Biggs PA-C MEDICATIONS: -Fentanyl 25 mcg, Lidocaine 1% 10 mL SQ. -Antibiotics: Ancef -For additional details, please see nursing flowsheet. COMPLICATIONS: None. ESTIMATED BLOOD LOSS: <5 ml SPECIMENS: None FLUOROSCOPY TIME: 1.7 min PROCEDURE NOTE: The procedure, risks, benefits, and alternatives were carefully explained to patient, and written informed consent was obtained. The patient was placed supine on the fluoroscopy table. A timeout was performed. The right neck and chest was prepped and draped in usual sterile fashion. A fluoroscopic image of the chest was performed, which demonstrated the catheter tip located at the cavoatrial junction. Local anesthesia was administered to the catheter entry site with lidocaine. Using blunt dissection, the catheter cuff was freed from the right chest wall. A 0.035 stiff Glidewire was inserted through the venous limb of the catheter and advanced into the IVC. The catheter was removed entirely over the wire. A new 27 cm permacath was advanced over the wire and positioned with the tip in the right atrium. The wire was removed. The catheter was tested, flushed, and sutured to the skin. A permanent fluoroscopic image of the chest was saved to PACS. The catheter ports were packed with heparin per routine protocol. The patient was stable after the procedure and was transferred to the post anesthesia care unit. FINDINGS: 1. Existing permacath tip located at the cavoatrial junction. 2. Replacement of a tunneled, dual-lumen hemodialysis catheter as above. 3. Catheter flushes and aspirates very well with a 10 mL syringe. No pneumothorax. IR/IR cvc replace central tunnel IMPRESSION: Replacement of a tunneled hemodialysis catheter in the right internal jugular vein. PLAN: -The catheter may be used immediately. This procedure was performed by Juan Biggs PA-C, and directly supervised by Dr. Contreras. Electronically signed by: Raulito Contreras MD 06/22/2024 03:19 PM EDT Workstation: [id number]
[2024-06-20 13:56] LABS: Glucose, Whole Blood 171 mg/dL (60-115)
[2024-06-20 13:58] VITALS: BP 184/79; PULSE 98; RESP 16; TEMP 36.2; O2SAT 95; BMI 28.5
[2024-06-20 15:13] VITALS: BP 182/78; PULSE 84; RESP 20; TEMP 36.6; O2SAT 97
[2024-06-20 15:28] VITALS: BP 175/62; PULSE 88; RESP 20; TEMP 36.6; O2SAT 97
--- NOTE | 2024-06-22 08:58 | PM.PROC ---
Brief Operative Note Date of procedure: 06/20/24 Pre-op diagnosis: Poorly functioning dialysis catheter Post-op diagnosis: same Procedure: Right IJ Permcath exchanged for new 27 cm catheter. Tip in right atrium. Ok for use. No immediate complications.
== END 2024-06-20 15:37 | disposition home or self-care (01) ==
PROVIDERS: Student in an Organized Health Care Education/Training Program; PCP Family Medicine; Visit Provider Internal Medicine Hypertension Specialist
DX: T82.41XA Breakdown (mechanical) of vascular dialysis catheter, initial encounter (principal); Y73.8 Miscellaneous gastroenterology and urology devices associated with adverse incidents, not elsewhere classified; Y92.9 Unspecified place or not applicable; E11.22 Type 2 diabetes mellitus with diabetic chronic kidney disease; I12.0 Hypertensive chronic kidney disease with stage 5 chronic kidney disease or end stage renal disease; N18.6 End stage renal disease; Z99.2 Dependence on renal dialysis; I42.9 Cardiomyopathy, unspecified; Z95.0 Presence of cardiac pacemaker; Z79.4 Long term (current) use of insulin; Z79.85 Long-term (current) use of injectable non-insulin antidiabetic drugs; Z79.82 Long term (current) use of aspirin; Z79.899 Other long term (current) drug therapy
CPT/HCPCS: 36581; 82947; J0690; J1644; J2310; J3010

== ENCOUNTER → 2024-06-20 13:40 | Outpatient (BNV) | payer MEDICAID, SELFPAY | PROVIDERS: PCP Family Medicine; Visit Provider Physician Assistant Surgical | DX: T82.594A Other mechanical complication of infusion catheter, initial encounter (principal) | CPT/HCPCS: 36581 ==

== ENCOUNTER → 2024-06-27 | Outpatient (BNV) | payer MEDICAID, SELFPAY | PROVIDERS: PCP Family Medicine; Visit Provider Internal Medicine Nephrology | DX: N18.6 End stage renal disease (principal) | CPT/HCPCS: 90960 ==

== ENCOUNTER 2024-07-03 08:34 | Outpatient (REF) | payer MEDICAID, SELFPAY ==
--- NOTE | ~2024-07-03 | CT_ITS ---
EXAMINATION: CT CHEST, ABDOMEN, AND PELVIS WITHOUT CONTRAST CLINICAL INFORMATION: Restaging bladder cancer. COMPARISON: No prior chest CT. CT scans of the abdomen and pelvis dated between March 03, 2024 and September 09, 2008. TECHNIQUE: Multidetector volumetric CT imaging of the chest, abdomen, and pelvis was obtained without oral or intravenous contrast. Axial MIP volume rendering provided. Sagittal and coronal reformatted images were obtained. This CT examination was performed using dose optimization techniques as appropriate, variously including the following: *Automated exposure control *Adjustment of mA and/or kV according to patient size (this includes techniques or standardized protocols for targeted exams where dose is matched to indication/reason for exam; i.e. extremities or head) *Use of iterative reconstruction technique DLP: 582 mGy-cm FINDINGS: LUNGS: The lungs are clear with no evidence of inflammation or nodules. MEDIASTINUM: Tip of right internal jugular tunneled dialysis catheter lies at junction of superior vena cava and right atrium. Tips of left subclavian pulse generator device leads lie in the right atrium and right ventricular apex. CORONARY ARTERY CALCIFICATION: Moderate. PLEURA: There is no pleural effusion. No pleural mass or thickening. AXILLA: No lymphadenopathy by size criteria. LIVER, GALLBLADDER, AND BILIARY TREE: The liver appears unremarkable in size, shape, and attenuation. No focal hepatic lesion or biliary ductal dilatation is appreciated. Unremarkable appearance of the gallbladder. PANCREAS: Unremarkable SPLEEN: Unremarkable ADRENAL GLANDS: Unremarkable KIDNEYS AND URETERS: The kidneys appear unremarkable in size, shape, and attenuation. No hydronephrosis, hydroureter, or calculi seen. BLADDER: Poorly distended, therefore suboptimally evaluated. Grossly unremarkable. GASTROINTESTINAL TRACT: The small and large bowel appear unremarkable. No diverticulosis. Normal-appearing distal ileum and vermiform appendix. ABDOMINAL WALL: No significant hernia is appreciated. LYMPH NODES: Retroperitoneal adenopathy which appears generally decreased in size compared with most recent prior study dated March 03, 2024. For example, the largest node, which is retrocaval in location, currently measures approximately 1.8 cm in short axis (image 23, series 3), having measured approximately 2.8 cm on March 03, 2024, by my measurements. Additional aortocaval and para-aortic nodes are present and appear decreased in size. Mild induration of intraperitoneal fat in the region of adenopathy, grossly similar. No new or enlarging adenopathy identified. VASCULAR: Arterial calcification. PELVIC VISCERA: Unremarkable OSSEOUS STRUCTURES: Moderate to severe compression deformity of L2, not significantly changed compared with most recent prior CT scan from March 03, 2024. No new lytic or sclerotic bony lesion identified. Degenerative changes of the shoulders. CT/CT abdomen pelvis wo IV con IMPRESSION: Limited by lack of oral and intravenous contrast. Poorly distended urinary bladder, therefore suboptimally evaluated. Grossly unremarkable. Retroperitoneal adenopathy generally decreased in size compared with most recent prior study dated March 03, 2024, as detailed above. Mild induration of intraperitoneal fat in the region of adenopathy, grossly similar. No new or enlarging adenopathy identified. Moderate to severe compression deformity of L2, not significantly changed compared with most recent prior CT scan from March 03, 2024. No new lytic or sclerotic bony lesion identified. Electronically signed by: Catrachito Post MD 07/03/2024 11:27 AM EDT
== END 2024-07-03 08:35 | disposition home or self-care (01) ==
LOC: HO.CT 08:34
PROVIDERS: PCP Family Medicine; Visit Provider Internal Medicine
DX: C67.9 Malignant neoplasm of bladder, unspecified (principal)
CPT/HCPCS: 71250; 74176

== ENCOUNTER 2024-07-19 10:50 | Outpatient (REF) | payer MEDICAID, SELFPAY ==
--- NOTE | 2024-07-19 12:39 | HO.MIDLINE ---
Midline Insertion MIDLINE INSERTION Diagnosis: cancer DX Indication: chemotherapy Pertinent Labs: reviewed Technique: Using sterile technique including cap and mask, glove and drape, the right arm was prepped and draped in the usual sterile fashion of full barrier technique with CHG. Using ultrasound guidance, right basilic vein access was obtained . 4fr x 20cm power midline catheter trimmed to 10cm was positioned. The procedure was performed in rm 272. Ultrasound was used to document vein patency and for needle entry. A formal ultrasound picture was recorded. [employer] has released the line for use and it is currently dressed with a StatLock, Tegaderm, and CHG disc. Verification has been performed for blood return and line patency. Pt denied any complaints of discomfort Arm Circumference: 29cm Equipment: BARD PowerMidline Catheter Catheter Type: 4FR x20cm powermidline catheter Lot #: [id number]
== END 2024-07-19 10:51 | disposition home or self-care (01) ==
LOC: HO.RADIR 10:50
PROVIDERS: Visit Provider Internal Medicine
DX: C67.9 Malignant neoplasm of bladder, unspecified (principal)
CPT/HCPCS: 36573; C1751

== ENCOUNTER → 2024-07-28 | Outpatient (BNV) | payer MEDICAID, SELFPAY | PROVIDERS: PCP Family Medicine; Visit Provider Internal Medicine Nephrology | DX: N18.6 End stage renal disease (principal) | CPT/HCPCS: 90961 ==

== ENCOUNTER 2024-08-01 11:53 | Inpatient (IN) | payer MEDICAID, SELFPAY ==
--- NOTE | ~2024-08-01 | XR_ITS ---
EXAMINATION: XR CHEST CLINICAL INFORMATION: PICC line removal COMPARISON: X-ray dated May 11, 2024 TECHNIQUE: 2 views of the chest were obtained. FINDINGS: No consolidation, pleural fissure pneumothorax. Double-lumen right-sided central venous line catheter ends at the right atrium. 3 intact electrode leads in the right upper tremors and coronary sinus, left-sided pacemaker. Heart silhouette is normal in size. Multilevel thoracolumbar spondylosis. S-shaped curvature of the thoracolumbar spine. XR/XR chest 2V IMPRESSION: No acute airspace disease. Electronically signed by: Shelton Levine MD 08/01/2024 02:16 PM ELSA
--- NOTE | ~2024-08-01 | US_ITS ---
EXAMINATION: US TRIPLEX UPPER EXTREMITY, RIGHT CLINICAL INFORMATION: Edema, right upper extremity. Status post PICC line removal. COMPARISON: None available. TECHNIQUE: Color-flow triplex imaging with spectral analysis and compression Doppler was performed on the right upper extremity. FINDINGS: The right internal jugular, subclavian, and axillary demonstrated partial compressibility in the mid right internal jugular vein. Remaining interrogated vessels demonstrated normal phasic flow and compressibility.. The imaged segment of the right brachiocephalic vein is patent. Spectral doppler waveforms are normal. The brachial, basilic, cephalic, radial, and ulnar veins are patent and compressible. US/US venous duplex UE RT IMPRESSION: Nonocclusive thrombus, right internal jugular vein. Positive exam. Electronically signed by: Shelton Levine MD 08/01/2024 02:45 PM EST
[2024-08-01 12:21] VITALS: BP 105/53; PULSE 101; RESP 18; TEMP 37.1; O2SAT 100; BMI 27.8
--- NOTE | 2024-08-01 12:21 | ED_ITS ---
HPI - General Adult General Chief complaint: Skin/Abscess/Foreign Body Stated complaint: Bruising/swelling R arm Time Seen by Provider: 08/01/24 16:55 Source: patient Mode of arrival: ambulatory Limitations: no limitations and language barrier History of Present Illness HPI narrative: This is a 58-year-old woman with a past medical history of ESRD on HD (M/W/F), hypertension, cardiomyopathy, anemia, bladder cancer who presents for evaluation right upper extremity erythema/edema/pain. History obtained utilizing professional Azeri interpretation. Patient states that she had a line removed on July 27 by her nurse since it was noted that the line was ?leaking?. Patient states noting pain over the last couple of days. She states that there was a dressing over her arm and she did not notice the redness and swelling until today. She states she was made aware that she may have a blood clot and she was recommended to come to the emergency room for evaluation. She states no chest pain or difficulty breathing. She states no leg pain/swelling. She states feeling pain that she is having is localized to her right arm. She states no fevers. She otherwise reports feeling well. She states no GI or symptoms. Related Data Home Medications ?Medication ?Instructions ?Recorded ?Confirmed amitriptyline 50 mg tablet 50 mg PO BEDTIME 10/22/23 06/28/24 aspirin 81 mg tablet,delayed 81 mg PO DAILY 10/22/23 06/28/24 release cholecalciferol (vitamin D3) 50 50 mcg PO DAILY 10/22/23 06/28/24 mcg (2,000 unit) capsule (Vitamin D3) lancets 33 gauge (TRUEplus Lancets) #100 ea 10/22/23 06/28/24 omeprazole 20 mg capsule,delayed 20 mg PO BID@0630,1630 10/22/23 06/28/24 release pen needle, diabetic 32 gauge x #1,200 10/22/23 06/28/24 (Pentips) rosuvastatin 40 mg tablet 40 mg PO BEDTIME 10/22/23 06/28/24 ferrous sulfate 325 mg (65 mg 325 mg PO BEDTIME 04/08/24 06/28/24 iron) tablet (FeroSul) insulin glargine 100 unit/mL (3 25 unit subcut BEDTIME 04/08/24 06/28/24 mL) subcutaneous pen (Lantus Solostar U-100 Insulin) metoprolol tartrate 50 mg tablet 50 mg PO BID 04/08/24 06/28/24 tramadol 50 mg tablet 50 mg PO Q6H PRN pain 04/08/24 06/28/24 cinacalcet 30 mg tablet mg PO MOWEFR 08/01/24 dapagliflozin propanediol 10 mg 10 mg PO QAM 08/01/24 tablet (Farxiga) insulin lispro 100 unit/mL 8 - 18 unit subcut TIDAC 08/01/24 subcutaneous pen Previous Rx's ?Medication ?Instructions ?Recorded calcitriol 0.25 mcg capsule 0.25 mcg PO DAILY 30 days #30 caps 02/02/24 sennosides 8.6 mg-docusate sodium 1 tab-cap PO BEDTIME #30 tabs 05/16/24 50 mg tablet (Senna with Docusate Sodium) Allergies Allergy/AdvReac Type Severity Reaction Status Date / Time No Known Allergies Allergy Verified 08/01/24 12:25 [No Known Allergies*] Review of Systems 2 Review of Systems: ROS as per HPI [facility] Past Medical History Medical History (Updated 08/01/24 @ 17:52 by Otf Sheridan MD) ESRD (end stage renal disease) on dialysis Mass of bladder Bladder mass Pacemaker History of adenomatous polyp of colon Cardiomyopathy Chronic kidney disease, stage 4 (severe) Hypertension Type 2 diabetes mellitus with diabetic nephropathy Surgical History History of ankle surgery History of biopsy Social History Social History Household Members: Children Housing: Apartment Do you presently have visiting nurse or other home services: Yes Alcohol intake: never Patient Tobacco Use Status: Never used Tobacco Advance Directives: No Advance Directives Information Provided: Yes service: No Current occupational status: disabled Gender identity: Female Physical Exam ED Vital Signs: Vital Signs - 24 hr 08/01/24 12:21 08/01/24 17:38 Temperature 98.8 F 97.9 F Pulse Rate 101 H 91 Respiratory Rate 18 18 Blood Pressure 105/53 L 111/70 Pulse Oximetry 100 100 Oxygen Delivery Method Room Air Room Air BMI result Body Mass Index 27.8 Gen: NAD, AOx3 HEENT: NCAT, EOMI, normal conjunctiva CV: RRR, no murmurs appreciated, 2+ bilateral radial pulses Pulm: CTAB, no increased work of breathing GI: Soft, NTND, no rebound, guarding or rigidity MSK: Right proximal upper extremity anterior aspect with area erythema/edema/induration/warmth Neuro: Grossly non focal, sensation intact to light touch bilateral upper extremities Course Course Course Narrative: This is a rapid medical exam performed by Alex Gutierres CORPORATE DIRECTOR OF PHARMACY: Additional HPI, ROS, PE not included below will be deferred to primary provider. Patient is a 58-year-old female with history of ESRD, diabetic nephropathy, anemia, secondary hyperparathyroidism, cardiomyopathy presenting to the ED with complaint of bruising and swelling to right arm, patient states she removed her own PICC line on 07/27. Plan: labs, US Medical Decision Making Medical Decision Making MDM Narrative: Differential diagnosis includes, but is not limited to deep vein thrombosis, superficial thrombophlebitis, cellulitis. Patient is afebrile and hemodynamically stable on room air. Exam is consistent with overlying cellulitis of the right upper extremity and I will treat it as such. Patient is provided cephalexin and doxycycline (there is no purulence to the area, but patient is a dialysis patient and is frequently in healthcare facilities thus is at increased risk for MRSA and for this reason doxycycline is provided). I reviewed the patient's labs and imaging findings as below. Given positive exam with right upper extremity ultrasound venous duplex I will provide anticoagulation with heparin. I considered the use of Eliquis, but in reviewing UpToDate there is no clinical trial data on safety or efficacy in patients with advanced chronic kidney disease and so this is not given. Further, given that clinical efficacy and safety studies have not enrolled patients with ESRD on dialysis or patient's with a creatinine clearance of less than 15 mL/min I have concerns regarding his safety efficacy of the use of this medication for this patient. I discussed this plan of care with admitting hospitalist, Dr. Bryant, who recommended discussion with child welfare consultant Hematology/Oncology regarding appropriate anticoagulation and question of whether or not this was an acute thrombus. However, it is my clinical impression that this is an acute thrombus given recent PICC line removal in the right upper extremity with development of erythema/edema/pain/warmth 5 days after PICC line removal and evident erythema of the/edema/pain/warmth to the right upper extremity. For the, radiologist Dr. Levine states impression of the right upper extremity venous duplex ultrasound as ?nonocclusive thrombus, right internal jugular vein. Positive exam.?. I suspect that this is any acute, provoked DVT. I did discuss the patient's case and mentioned with consulted watch engine operator/oncologist, Dr. Alcantara, who stated that it's for the radiologist to comment on the acuity of the clot. Dr. Alcantara recommended discharge on Warfarin or Eliquis renal dosing. In further discussion regarding the question of renal dosing of Warfarn or Eliquis, Dr. Alcantara recommended discussion with pharmacist or to check with UpToDate. I discussed patient's case and management with child welfare consultant pharmacist (Chapin) who stated understanding and concern regarding lack of data of these medications in patient's with advanced chronic kidney disease (on dialysis). He recommended IV heparing bolus and subsequent gtt with bridge to anticoagulant. Patient's case and management is against discussed with admitting hospitalist, Dr. Bryant, who accepts patient for admission and further management. Critical Care Time: A total of 60 minutes spent in direct patient care with coordinating critical resuscitation, procedures, reviewing records, discussing with consultants, reviewing labs, and/or managing patient. Admission/Observation Consideration of admission/observation: Escalation of care including admission/observation considered Consult Healthcare Provider Management of the patient was discussed with: Hospitalist and Hat Finishing Materials Preparer I discussed with hospitalist and consultants as above Lab Data MDM Lab Attestation statement: I reviewed the patient's lab results. I independently reviewed and interpreted the patient's labs including CBC, coagulation studies, metabolic panel, ESR and CRP. CBC is notable for baseline chronic/stable anemia with hemoglobin 11.3 (previous 10.5) and neutrophilia of 82.3%. Coagulation studies are unremarkable. ESR is elevated at 44 and CRP is elevated at 0.76, this is likely secondary to cellulitis of the right upper extremity (likely etiology of neutrophilia). Metabolic panel is overall unremarkable for any emergent findings. Creatinine is elevated at 5.28 in the setting of end-stage renal disease. There are no concerning electrolyte derangements. There is mild hyperglycemia of 205. 08/01/24 12:46 08/01/24 12:46 Labs: Lab Results 08/01/24 Range/Units 12:46 WBC 10.8 (4.8-10.8) X10*3/uL RBC 3.52 L (4.20-5.50) X10*6/uL Hgb 11.3 L (12.0-16.0) g/dl Hct 34.3 L (37.0-47.0) % MCV 97.4 (80.0-98.0) fL MCH 32.1 (27.0-33.0) pg MCHC 32.9 (31.0-35.0) g/dl RDW 15.6 (11.0-16.0) % Plt Count 185 (160-400) X10*3/uL MPV 10.2 (9.4-12.3) fL Immature Gran % (Auto) 0.5 H (0.0-0.4) % Neut % (Auto) 82.3 H (45-73) % Lymph % (Auto) 9.1 L (20-40) % Banner % (Auto) 6.5 (2-11) % Eos % (Auto) 1.2 (0-4) % Baso % (Auto) 0.4 (0-2) % Lymph # (Auto) 1.0 L (1.2-4.9) X10*3/uL Banner # (Auto) 0.7 (0.1-1.2) X10*3/uL Eos # (Auto) 0.1 (0.0-0.4) X10*3/uL Baso # (Auto) 0.0 (0.0-0.2) X10*3/uL Abs Immat Gran (auto) 0.05 H (0.00-0.03) X10*3/uL Absolute Neuts (auto) 8.9 H (2.0-8.3) x10*3/uL Absolute Nucleated RBC 0.000 (0.0-0.012) X10*3/uL Nucleated RBC % (auto) 0.0 (0.0-0.2) /100WBC ESR 44 H (0-20) MM/HR PT 10.7 L (10.9-12.4) SEC INR 0.9 (0.9-1.1) APTT 28.0 (26.0-36.8) SEC Sodium 137 (135-145) mmol/L Potassium 4.4 (3.3-5.1) mmol/L Chloride 99 (96-108) mmol/L Carbon Dioxide 24 (22-29) mmol/L Anion Gap 18 (12-20) BUN 34 H (9-16) mg/dL Creatinine 5.28 H* (0.5-1.4) mg/dL Estim Creat Clear Calc 9.9 Estimated GFR 8 Random Glucose 205 H (60-115) mg/dL Calcium 9.1 (8.4-10.2) mg/dL Total Bilirubin 0.4 (0.0-1.0) mg/dL AST 27 (5-31) U/L ALT 19 (0-31) U/L Alkaline Phosphatase 80 (39-117) U/L C-Reactive Protein 0.76 H (< or = 0.50) mg/dL Total Protein 7.2 (6.5-8.0) g/dL Albumin 3.6 (3.5-5.0) g/dL Radiology Impression Discussion of test interpretation with radiology: I have reviewed the radiologist's reading. Radiologist Impression: US/US venous duplex UE RT IMPRESSION: Nonocclusive thrombus, right internal jugular vein. Positive exam. Electronically signed by: Shelton Levine MD 08/01/2024 02:45 PM [facility] Dictated By: Shelton Lam MD Signed By: <Electronically signed by Shelton Alexis MD in OV> 08/01/24 [id number] Discharge Plan Discharge Clinical Impression: Acute internal jugular vein thrombosis Patient Disposition: Admitted As Inpatient Print Language: Azeri
[2024-08-01 12:51] LABS: MANUAL DIFF FLAG NO
[2024-08-01 12:55] LABS: Basophils Percent Auto 0.4 % (0-2); Eosinophils Absolute Auto 0.1 X10*3/uL (0.0-0.4); Eosinophils Percent Auto 1.2 % (0-4); Hematocrit 34.3 % (37.0-47.0); Hemoglobin 11.3 g/dl (12.0-16.0); Imm Gran Abs Auto 0.05 X10*3/uL (0.00-0.03); Imm Gran Pct Auto 0.5 % (0.0-0.4); Lymphocytes Percent Auto 9.1 % (20-40); Mean Corpuscular HGB Conc 32.9 g/dl (31.0-35.0); Mean Corpuscular Hemoglobin 32.1 pg (27.0-33.0); Mean Corpuscular Volume 97.4 fL (80.0-98.0); Mean Platelet Volume 10.2 fL (9.4-12.3); Monocytes Absolute Auto 0.7 X10*3/uL (0.1-1.2); Monocytes Percent Auto 6.5 % (2-11); Neutrophils Absolute Auto 8.9 x10*3/uL (2.0-8.3); Neutrophils Percent Auto 82.3 % (45-73); Platelet Count 185 X10*3/uL (160-400); Red Blood Count 3.52 X10*6/uL (4.20-5.50); Red Cell Distribution Width 15.6 % (11.0-16.0); White Blood Count 10.8 X10*3/uL (4.8-10.8)
[2024-08-01 13:00] LABS: INTERNATIONAL NORM RATIO 0.9 (0.9-1.1); Prothrombin Time 10.7 SEC (10.9-12.4)
[2024-08-01 13:17] LABS: Alanine Aminotransferase 19 U/L (0-31); Albumin Level 3.6 g/dL (3.5-5.0); Alkaline Phosphatase 80 U/L (39-117); Anion Gap 18 (12-20); Aspartate Amino Transferase 27 U/L (5-31); Bilirubin Total 0.4 mg/dL (0.0-1.0); Blood Urea Nitrogen 34 mg/dL (9-16); C Reactive Protein 0.76 mg/dL (< or = 0.50); Calcium 9.1 mg/dL (8.4-10.2); Carbon Dioxide 24 mmol/L (22-29); Chloride 99 mmol/L (96-108); Creatinine Clr Calc Pharmacy 9.9; Estimated Glomerular Filt Rate 8; Glucose Random 205 mg/dL (60-115); Potassium 4.4 mmol/L (3.3-5.1); Sodium 137 mmol/L (135-145); Total Protein 7.2 g/dL (6.5-8.0)
[2024-08-01 13:31] LABS: Erythrocyte Sedimentation Rate 44 MM/HR (0-20)
[2024-08-01 17:38] VITALS: BP 111/70; PULSE 91; RESP 18; TEMP 36.6; O2SAT 100
--- NOTE | 2024-08-01 19:53 | P.HPHOSP_ITS ---
History of Present Illness Date of Service: 08/01/24 Chief Complaint: Right arm swelling and redness. 58-year-old female with past medical history significant for end-stage renal disease on hemodialysis, cardiomyopathy, anemia of chronic disease, secondary hyperparathyroidism, insulin-dependent diabetes mellitus, and advanced urothelial cancer currently receiving chemotherapy, status post TURBT, patient was receiving chemotherapy via PICC line but noted to have leakage therefore PICC line removed on July 27, 2 days ago patient noticed redness swelling and discomfort in right upper arm at site of PICC line, therefore came to the emergency room patient denies associated fever chills, no headache, no dizziness, no nausea, no vomiting, no abdominal pain, no neck swelling, no radiation of pain, right upper extremity Doppler study showed nonocclusive thrombus, right internal jugular vein, normal CBC, stable hematocrit 34.3,, sodium 137, potassium 4.4, creatinine 5.28, blood sugar 205 , CRP 0.76, in ED patient received a dose of IV cefazolin and IV heparin and now being admitted to [facility] for further monitoring and treatment of right upper extremity cellulitis and DVT of right internal jugular vein. Review of Systems 2 Review of Systems: General no headache no dizziness no fever chills. CVS no chest pain, no palpitation. Respiratory no cough no sob Gastrointestinal no nausea no vomiting, no abdominal pain Musculoskeletal right upper arm pain All other system reviewed and negative [facility] Medical History (Updated 08/02/24 @ 12:33 by Emily Weaver, DNP, [employer] AND [employer] REPAIRER-BC) ESRD (end stage renal disease) on dialysis Mass of bladder Bladder mass Pacemaker History of adenomatous polyp of colon Cardiomyopathy Chronic kidney disease, stage 4 (severe) Hypertension Type 2 diabetes mellitus with diabetic nephropathy Surgical History History of ankle surgery History of biopsy Social History Household Members: Children Housing: House Do you presently have visiting nurse or other home services: Yes Alcohol intake: never Patient Tobacco Use Status: Never used Tobacco Smoked in Last 30 Days: No Use of substances other than those prescribed or required for medical reasons: No Currently Displaying Signs/Symptoms of Drug Intoxication Withdrawal: No Have you been hit, kicked, punched, or otherwise hurt by someone within the past year? If so, by whom?: No Advance Directives: No Advance Directives Information Provided: Yes Do you have a plan to hurt others: No Plan Recently lost weight without trying: Yes How much weight loss: 24-33 pounds Nutrition Risks: No Nutritional Risk Patient : No service: No Current occupational status: disabled Gender identity: Female Meds Allergies Allergy/AdvReac Type Severity Reaction Status Date / Time No Known Allergies Allergy Verified 08/01/24 12:25 [No Known Allergies*] Active Medications: Current Medications Acetaminophen (Acetaminophen 325 Mg Tablet) 650 mg PO Q6H PRN PRN Reason: Pain, Mild (Pain Scale 1-3), fever or headache Amitriptyline HCl (Amitriptyline Hcl 50 Mg Tablet) 50 mg PO BEDTIME RAYMOND Calcium Carbonate (Calcium Carbonate 750 Mg Tab.Chew) 750 mg PO Q4H PRN PRN Reason: Heartburn Cefazolin Sodium (Cefazolin Sodium 1 Gm Vial) 1 gm IVPUSH Q12H RAYMOND Glucose (Glucose Gel 15 Gm Gel..Gram.) 15 gm PO Q15M PRN; Protocol PRN Reason: per Hypoglycemia Standing Ord. Heparin Sodium (Porcine) (Heparin Sodium,Porcine 5,000 Unit/Ml Vial) 2,700 unit 40 unit/kg (2700 unit) IVPUSH PROTOCOL BOLUS PRN; Protocol PRN Reason: 40 unit/kg - Heparin Protocol Heparin Sodium (Porcine) (Heparin Sodium,Porcine 5,000 Unit/Ml Vial) 5,300 unit 80 unit/kg (5300 unit) IVPUSH PROTOCOL BOLUS PRN; Protocol PRN Reason: 80 unit/kg - Heparin Protocol Heparin Sodium/Sodium Chloride (Heparin Sodium,Porcine/1/2ns) 25,000 unit in 250 mls @ 0 mls/hr IVCONT .Q0M RAYMOND; Protocol Dextrose (D10) 250 mls @ 750 mls/hr IV Q15M PRN; Protocol PRN Reason: per Hypoglycemia Standing Ord. Insulin Human Lispro (Insulin Lispro 100 Unit/Ml 3 Ml Vial) 0 unit SUBCUT QIDACHS [facility]; Protocol Magnesium Hydroxide (Milk Of Magnesia 30 Ml Oral.Susp) 30 ml PO DAILY PRN PRN Reason: Constipation Melatonin (Melatonin 3 Mg Tablet) 6 mg PO BEDTIME PRN PRN Reason: Insomnia Omeprazole (Omeprazole 20 Mg Capsule.Dr) 20 mg PO BID@0630,1630 [facility] Ondansetron HCl (Ondansetron Hcl 4 Mg/2 Ml Vial) 4 mg IVPUSH Q8H PRN PRN Reason: Nausea and Vomiting Polyethylene Glycol (Polyethylene Glycol 3350 17 Gm Powd.Pack) 17 gm PO DAILY PRN PRN Reason: Constipation Sodium Chloride (0.9 % Sodium Chloride Flush 3 Ml Syringe) 3 ml IVFLUSH QSHIFT [facility] Home Medications ?Medication ?Instructions ?Recorded ?Confirmed ?Last Taken ?Type amitriptyline 50 mg tablet 50 mg PO BEDTIME 10/22/23 08/01/24 07/31/24 History aspirin 81 mg tablet,delayed 81 mg PO DAILY 10/22/23 08/01/24 08/01/24 History release cholecalciferol (vitamin D3) 50 50 mcg PO DAILY 10/22/23 08/01/24 08/01/24 History mcg (2,000 unit) capsule (Vitamin D3) lancets 33 gauge (TRUEplus Lancets) #100 ea 10/22/23 06/28/24 Unknown History omeprazole 20 mg capsule,delayed 20 mg PO BID@0630,1630 10/22/23 08/01/24 08/01/24 History release pen needle, diabetic 32 gauge x #1,200 ea 10/22/23 06/28/24 Unknown History (Pentips) rosuvastatin 40 mg tablet 40 mg PO BEDTIME 10/22/23 08/01/24 07/31/24 History ferrous sulfate 325 mg (65 mg 325 mg PO BEDTIME 04/08/24 08/01/24 07/31/24 History iron) tablet (FeroSul) insulin glargine 100 unit/mL (3 35 unit subcut BEDTIME 04/08/24 08/01/24 07/31/24 History mL) subcutaneous pen (Lantus Solostar U-100 Insulin) metoprolol tartrate 50 mg tablet 50 mg PO BID 04/08/24 08/01/24 08/01/24 History cinacalcet 30 mg tablet 30 mg PO MOWEFR 08/01/24 08/01/24 07/31/24 History dapagliflozin propanediol 10 mg 10 mg PO DAILY 08/01/24 08/01/24 08/01/24 History tablet (Farxiga) insulin lispro 100 unit/mL 8 - unit subcut TIDAC 08/01/24 08/01/24 08/01/24 History subcutaneous pen Physical Exam 2 Vital Signs and Narrative: Vital Signs: Last Vital Signs Temp 97.9 F 08/01/24 17:38 Pulse 91 08/01/24 17:38 Resp 18 08/01/24 17:38 BP 111/70 08/01/24 17:38 Pulse Ox 100 08/01/24 17:38 O2 Del Method Room Air 08/01/24 17:38 BMI result Body Mass Index 27.8 Const: Other: General awake alert x3, sitting comfortably in no acute distress. Neck no JVD. CVS regular rate rhythm, Respiratory lungs clear to auscultation, no respiratory distress, no wheeze, no rhonchi. Gastrointestinal abdomen soft, non tender, bowel sounds audible, no guarding , no rigidity. Extremities no pitting edema. Neuro non focal Right upper extremity localized area of redness, swelling and warmth at site of PICC line removal Left forearm fistula Psych appropriate affect Results Labs 08/02/24 04:12 08/01/24 12:46 Labs: Laboratory Results - last 24 hr 08/01/24 12:46 MCV 97.4 MCH 32.1 MCHC 32.9 RDW 15.6 Plt Count 185 MPV 10.2 Immature Gran % (Auto) 0.5 H Neut % (Auto) 82.3 H Lymph % (Auto) 9.1 L [place] % (Auto) 6.5 Eos % (Auto) 1.2 Baso % (Auto) 0.4 Lymph # (Auto) 1.0 L [place]house # (Auto) 0.7 Eos # (Auto) 0.1 Baso # (Auto) 0.0 Abs Immat Gran (auto) 0.05 H Absolute Neuts (auto) 8.9 H Absolute Nucleated RBC 0.000 Nucleated RBC % (auto) 0.0 ESR 44 H PT 10.7 L INR 0.9 APTT 28.0 Anion Gap 18 Estim Creat Clear Calc 9.9 Estimated GFR 8 Random Glucose 205 H Calcium 9.1 Total Bilirubin 0.4 AST 27 ALT 19 Alkaline Phosphatase 80 C-Reactive Protein 0.76 H Total Protein 7.2 Albumin 3.6 Imaging Radiologist's Impressions: Impressions Chest X-Ray 08/01/24 12:24 IMPRESSION: No acute airspace disease. Electronically signed by: Shelton Levine MD 08/01/2024 02:16 PM EST RP Venous Duplex 08/01/24 14:49 IMPRESSION: Nonocclusive thrombus, right internal jugular vein. Positive exam. Electronically signed by: Shelton Levine MD 08/01/2024 02:45 PM EST RP Assessment and Plan (1) ESRD (end stage renal disease) on dialysis: Status: Acute (2) Acute internal jugular vein thrombosis: Status: Acute (3) Bladder cancer: Status: Acute Plan 58-year-old female with pertinent history of CKD stage 5, cardiomyopathy with EF 20%, anemia due to CKD, secondary hyperparathyroidism, mood disorder, gastroesophageal reflux disease, insulin-dependent diabetes mellitus who presents to the emergency department for evaluation of her right upper extremity swelling redness and discomfort DVT right internal jugular vein Provoked, nonocclusive thrombus right internal jugular vein question chronic Continue IV heparin, will bridge with Coumadin Will discuss continued anticoagulation with oral anticoagulants with Hematology and Nephrology Monitor closely for bleed Right upper extremity cellulitis IV Ancef renally dosed follow clinical course End-stage renal disease on hemodialysis Wednesdays and Fridays place on low potassium diet consult Nephrology. Diabetes mellitus on insulin follow blood sugars, diabetic diet and insulin sliding scale Cardiomyopathy with EF 20% continue beta-blockers not on diuretics. Secondary hyperparathyroidism due to chronic kidney disease continue calcitriol. Mood disorder continue home medication Advanced urothelial cancer being followed by Dr. Alcantara, outpatient follow-up with Hematology. DVT prophylaxis on IV heparin Full code In my clinical judgment patient will be admitted for 2 night inpatient stay for treatment of DVT and cellulitis requiring IV heparin and IV antibiotic and close clinical monitoring. Quality Stroke Does the patient have a stroke diagnosis?: No VTE Prior VTE?: No VTE Risk Level:: Medical - moderate - high VTE Device Contraindication: Treatment Not Indicated VTE Drug Contraindication: N/A - Med Ordered
--- NOTE | 2024-08-01 20:05 | PHA.MEDREC ---
Addendum entered by Lukas Stein RPh 08/01/24 20:13: Med rec was reviewed by [facility]. Correction: last fill date of lantus was 09/06/2023, Original Note: Pharmacy Consult ? Medication Reconciliation Pharmacy has completed the medication reconciliation. Spoke to patient through learning and development coordinator service (Dejon) Patient had a med box list with her. Patient confirmed she was taking Insulin Lispro 8-18 units TID per sliding scaleand Lantus Solostar is 35 units at bedtime , however last fill date was 09/06/24 not sure if she is taking.
[2024-08-01 20:11] LABS: PTT Heparin Drip 27.6 SEC (53-77.9)
[2024-08-01] MEDS: Heparin Sodium,Porcine 5,000 UNIT/ML VIAL 5300 UNIT IVPUSH (20:22)
[2024-08-01] MEDS: Heparin Sodium,Porcine/1/2NS 25,000 UNIT/250 ML IV.SOLN 9.34 UNIT IVCONT (20:24)
[2024-08-01] MEDS: cephALEXin 500 MG CAPSULE PO (20:26)
[2024-08-01] MEDS: Doxycycline Monohydrate 100 MG CAPSULE PO (20:26)
--- NOTE | 2024-08-01 20:32 | PC.NURSE ---
assumed care of pt at 1900. IV line placed in RA by TYESHA Jones. PTT-HD sample obtained and sent down to lab- result 27.6. Medications administered as per NOV. Heparin Drip initiated at 14u/kg/hr- 6 hour repeat draw due at 0225, order placed. Pt placed on continuous environmental education specialist. Call hope within reach. plan of care ongoing
[2024-08-01 20:42] VITALS: BP 171/71; PULSE 87; RESP 16; TEMP 37.1; O2SAT 95
[2024-08-01 21:10] LABS: Glucose, Whole Blood 265 mg/dL (60-115)
--- OUTSIDE RECORDS SUMMARY | 2024-08-01 21:13 | XMS_ITS | Continuity of Care Document ---
Author Organization [facility] Address [address] [place] [id number]- Care Team Providers Care Technical Services Consultant Name Role Phone Anne Talamantes DO Primary Care Physician [phone] Encounter [facility] [place] ACCT R [id number] Date(s): 06/04/20 - 09/04/20 [facility] [address] [place] [id number] Attending Physician: Marisa Yeung MD Admitting Physician: Marisa Yeung MD Referring Physician: Anne Talamantes DO Allergies, Adverse Reactions, Alerts Substance Reaction Severity Status NKA Active Medications amitriptyline 50 mg oral tablet 1 tablet = 50 mg, By Mouth, Daily at bedtime Start Date: 04/21/19 Status: Ordered Aspirin = 81 mg, By Mouth, Daily, 0 Refills, Maintenance Start Date: 02/21/11 Status: Ordered Compression Stockings See Instructions, # 1 pair, Maintenance, surgical, calf length 30-40 mm Hg, 04/22/19 13:35:06 EDT, Compound Start Date: 04/22/19 Status: Ordered FeroSul 325 mg oral tablet 1 tablet = 325 mg, By Mouth, Daily, EVERY EVENING Start Date: 04/21/19 Status: Ordered Freestyle Lite Monitor See Instructions, # 1 each, Maintenance, To use 4 times/day Diagnosis : DM type 2, 04/22/19 13:21:17 EDT, Compound Start Date: 04/22/19 Status: Ordered Freestyle Lite Test Strips See Instructions, # 200 each, Tot. Refills 5, Maintenance, to use 4 times/day Diabetes Mellitus type 2, 04/22/19 13:21:22 EDT, Compound Start Date: 04/22/19 Stop Date: 05/22/19 Status: Ordered Humalog Kwik Pen 100 units/mL subcutaneous injection inject 8-20 units per sliding scale twice a day Start Date: 04/21/19 Status: Ordered Lantus Solostar Pen 100 units/mL subcutaneous solution = 35 units, Subcutaneous Injection, Daily at bedtime Start Date: 04/21/19 Status: Ordered Linzess 290 mcg oral capsule 1 capsule = 290 mcg, By Mouth, Daily Start Date: 04/21/19 Status: Ordered metoclopramide 5 mg oral tablet TAKE 1 TABLET BY MOUTH 30 MINUTES BEFORE BREAKFAST AND BEFORE SUPPER Start Date: 04/21/19 Status: Ordered Metoprolol Succinate ER 200 mg oral tablet, extended release 1 tablet = 200 mg, By Mouth, Daily in AM Start Date: 04/21/19 Status: Ordered omeprazole 20 mg oral enteric coated capsule 1 capsule = 20 mg, By Mouth, 2 times a day Start Date: 04/21/19 Status: Ordered rosuvastatin 40 mg oral tablet 1 tablet = 40 mg, By Mouth, Daily at bedtime Start Date: 04/21/19 Status: Ordered Trulicity Pen 1.5 mg/0.5 mL subcutaneous solution = 1.5 mg, Subcutaneous Infusion, Every Wednesday, # 12 application, 4 Refills, Maintenance, 03/09/19 15:47:34 EDT Start Date: 03/09/19 Stop Date: 06/01/20 Status: Ordered Vitamin D3 2000 intl units oral tablet 1 tablet = 2,000 International_Units, By Mouth, Daily in AM Start Date: 04/21/19 Status: Ordered Problem List Condition Effective Dates Status Health Status Inform ant Diabetes mellitus type 2(Confirmed) Active
--- OUTSIDE RECORDS SUMMARY | 2024-08-01 21:13 | XMS_ITS | Continuity of Care Document ---
Author Organization [facility] Address [address] [place] [address]- Care Team Providers Care Pencil Inspector Name Role Phone RobertaAnne gaspar DO [place] Primary Care Physician [phone] En[place] [facility] [place] Date(s): 11/12/23 - 12/12/23 [facility] [address] [place] [address]- [place] Allergies, Adverse Reactions, Alerts No Known Allergies Medications amitriptyline 50 mg oral tablet 1 tablet = 50 mg, By Mouth, Daily at bedtime Start Date: 04/21/19 Status: Ordered Aspirin = 81 mg, By Mouth, Daily, 0 Refills, Maintenance Start Date: 02/21/11 Status: Ordered Compression Stockings See Instructions, # 1 pair, Maintenance, surgical, calf length 30-40 mm Hg, 04/22/19 13:35:06 EDT, Compound Start Date: 04/22/19 Status: Ordered Entresto 24 mg-26 mg oral tablet 1 tablet, By Mouth, 2 times a day, # 60 tablet, 0 Refills, Maintenance, 10/29/22 6:51:00 EST, Tablet, Partial fill upon patient request if the prescription is for a schedule II opioid drug. Start Date: 10/29/22 Status: Ordered FeroSul 325 mg oral tablet [...] at bedtime Start Date: 04/21/19 Status: Ordered metoprolol 25 mg oral tablet 25 mg, 1, tablet, By Mouth, 2 times a day, # 60 tablet, Refills 0, Maintenance, 08/17/23 11:30:00 EST, Partial fill upon patient request if the prescription is for a schedule II opioid drug. Start Date: 08/17/23 Status: Ordered omeprazole 20 mg oral enteric [...] Date: 04/21/19 Status: Ordered Problem List Condition Confirmation Course Effective Dates Status Health St atus Informant Diabetes mellitus type 2 Confirmed Active Obese class I Confirmed Active Patient Care team information Care Team Personnel Name: Catherine Morales RN Position: [facility] RN Member Role: Primary Care Nurse Name: Anne Talamantes DO Position: [facility] Outreach Member Role: PCP Address: Address: [address] [place] [address]- Care Team Related Persons Name: YANG CHATTERJEE Address: home [address] [place] [address] Name: TRAE RILEY Address: home [address] [place] [address]
--- OUTSIDE RECORDS SUMMARY | 2024-08-01 21:13 | XMS_ITS | Continuity of Care Document ---
Author Organization [facility] Address [address] [place] [address]- Care Team Providers Care Claim Benefit Specialist Name Role Phone Ivonnedaphne Anne ALMAGUER Primary Care Physician Encounter [facility] [place] Date(s): 12/27/20 - 01/26/21 [facility] [address] [place] [id number] Allergies, Adverse Reactions, Alerts Substance Reaction Severity [...]
--- OUTSIDE RECORDS SUMMARY | 2024-08-01 21:13 | XMS_ITS | Continuity of Care Document ---
Author Organization [facility] Address [address] [facility] [address] [place] [address]- Care Team Providers Care Warper Creeler Name Role Phone Ivonnedaphne Anne ALMAGUER Primary Care Physician [facility] [id number] Date(s): 11/16/23 - 12/16/23 [facility] [address] [place] [address]- Attending Physician: Miles Brooke Admitting Physician: Miles Brooke Referring Physician: Miles Brooke Allergies, Adverse Reactions, Alerts No Known Allergies [...] Team Personnel Name: Catherine Morales RN Position: S RN Member Role: Primary Care Nurse Name: Anne Talamantes DO Position: [facility] Outreach Member Role: PCP Address: Address: [address] [place] [id number]- Care Team Related Persons Name: YANG CHATTERJEE Address: [address] [place] [address] Name: TRAE RILEY Address: home [address] [place] [address]
--- OUTSIDE RECORDS SUMMARY | 2024-08-01 21:13 | XMS_ITS | Continuity of Care Document ---
Author Organization [facility] Address [address] [place] [address]- Care Team Providers Care Business Process Architect Name Role Phone Ivonnedaphne Anne ALMAGUER Primary Care Physician Encounter [facility] [place] ACCT R [id number] Date(s): 12/24/20 - 01/23/21 [facility] [address] [place] [id number] Attending Physician: Miles Brooke Admitting Physician: Miles Brooke Referring Physician: Miles Brooke Allergies, Adverse Reactions, Alerts Substance Reaction Severity [...]
--- OUTSIDE RECORDS SUMMARY | 2024-08-01 21:13 | XMS_ITS | Continuity of Care Document ---
Author Organization [facility] Address [address] [place] [address]- Care Team Providers Care Transferrer Name Role Phone RobertaAnne gaspar DO Jewels Primary Care Physician [phone] Encounter [facility] [place] [id number] Date(s): 11/24/23 - 12/24/23 [facility] [address] [place] [address]- [place] Allergies, Adverse Reactions, Alerts No Known [...] Team Personnel Name: Catherine Morales RN Position: [facility] RN Member Role: Primary Care Nurse Name: Anne Talamantes DO Position: [facility] Outreach Member Role: PCP Address: Address: [address] [place] [address]- Care Team Related Persons Name: YANG CHATTERJEE Address: home [address] [place] [address] Name: TRAE RILEY Address: home [address] [place] [address]
--- OUTSIDE RECORDS SUMMARY | 2024-08-01 21:13 | XMS_ITS | Continuity of Care Document ---
Author Organization [facility] ter Address [address] [place] [id number] Care Team Providers Care Care Technician Name Role Phone Ivonnedaphne Anne ALMAGUER Primary Care Physician Encounter [facility] Date(s): 08/17/23 - 08/18/[address] [address] Discharge Disposition: A-D/C Home Attending Physician: Lukas Man MD Admitting Physician: Lukas Man MD Referring Physician: Lukas Man MD Allergies, Adverse Reactions, Alerts No Known Allergies Medications Acetaminophen Tablet 650 mg, Tablet, By Mouth, Every 6 hours, PRN for Pain , Mild, Routine, 08/17/23 17:50:00 EST Start Date: 08/17/23 Stop Date: 08/18/23 Status: Discontinued amitriptyline 50 mg oral tablet 1 tablet [...] opioid drug. Start Date: 08/17/23 Status: Ordered metoprolol 25 mg oral tablet 25 mg, Tablet, By Mouth, 08/17/23 21:00:00 EST Start Date: 08/17/23 Stop Date: 08/17/23 Status: Completed omeprazole 20 mg oral enteric coated capsule [...] Confirmed Active Obese class I Confirmed Active Results Radiology Reports * Exam Date Time Procedure Performing Provider Status 08/18/23 6:39 AM Chest 2 Views Frontal and Lat Marianela Burch; Yuniel (Verified) Notes: (Chest 2 Views Frontal and Lat) Reason For Exam: Postop RESULT: Chest 2 Views Frontal and Lat Chest 2 Views Frontal and Lat Reason: Postop; Clinical Question(s): Line Placement; Pneumothorax; Special Instructions: Patient may go unmonitored. Please keep film at back desk COMPARISON: 04/20/2008 FINDINGS: LINES AND TUBES: Interval placement of AICD at the left chest wall with leads projecting at the right atrium and right ventricle LUNGS AND PLEURA: Clear lungs. Normal pulmonary vascularity. No pleural effusion. No pneumothorax. HEART, MEDIASTINUM AND CODY: Unchanged cardiomegaly. BONES AND SOFT TISSUES: No acute abnormality. Contiguous osteophytosis of the spine. Degenerative changes. IMPRESSION: Interval placement of left chest AICD. No pneumothorax. WSN: [id number] Ordering Physician: Lukas Man Dictated By: Francia Fierro MD Dictated Date/Time: 08/18/23 9:44 am Reviewed By: Francia Fierro MD Signed By: Francia Fierro MD Signed Date/Time: 08/18/23 9:44 am Transcribed By: DACIA Transcribed Date/Time: 08/18/23 9:40 am Vital Signs Most recent to oldest [Reference Range]: 1 2 3 Weight 79.0 kg (08/18/23 6:19 AM) 79.8 kg (08/17/23 6:13 PM) Oxygen Saturation [94-100 %] 97 % (08/18/23 7:55 AM) 96 % (08/18/23 2:00 AM) 97 % (08/17/23 7:00 PM) Pulse Rate [55-90 bpm] 74 bpm (08/18/23 7:55 AM) 74 bpm (08/18/23 2:00 AM) 88 bpm (08/17/23 10:25 PM) Blood Pressure [90-138/55-84 mm Hg] 143/72mm Hg *H* (08/18/23 7:55 AM) 125/71mm Hg (08/18/23 2:00 AM) 150/84mm Hg *H* (08/17/23 10:25 PM) Respiratory Rate [16-30 br/min] 18 br/min (08/18/23 7:55 AM) 18 br/min (08/18/23 2:00 AM) 16 br/min (08/17/23 11:26 PM) Temperature [96.8-100.4 DegF] 98.0 DegF (08/18/23 7:55 AM) 98.4 DegF (08/18/23 2:00 AM) 98.5 DegF (08/17/23 7:00 PM) Mode of Delivery (Oxygen) Room air (08/18/23 7:55 AM) Room air (08/18/23 2:00 AM) Room air (08/17/23 7:00 PM) Blood pressure sites Arm, right (08/18/23 7:55 AM) Arm, right (08/18/23 2:00 AM) Arm, right (08/17/23 7:00 PM) Temperature Route Oral (08/18/23 7:55 AM) Oral (08/18/23 2:00 AM) Oral (08/17/23 7:00 PM) Weight Obtained Via Bed scale (08/18/23 6:19 AM) Note * Keyana Champagne RN: PERFORM Event Display: Discharge/Transfer Note Hospital Authored Date: [id number] Nursing Discharge Note Entered On: 08/18/2023 12:36 EST Performed On: 08/18/2023 12:35 EST by Keyana Champagne RN Nursing Discharge Note 2 Discharge Time : 08/18/2023 12:33 EST Discharge Level of Care at Discharge : Home/Halfway/Foster Care Patient Left Unit Via : Wheelchair Patient Accompanied Off Unit with : Responsible adult DC Instructions Provided & Signed by Pt : Yes Patient Understands D/C Instructions : Yes Patient Instructions Discharge Signed : Yes Did Pt have Specialty Bed or Wound Vac : No Keyana Champagne RN - 08/18/2023 12:35 EST * Tip MARAVILLA, Kwadwo Gunderson: PERFORM Event Display: Discharge/Transfer Note Hospital Authored Date: [id number] Patient: ??SHIN RILEY ? Age:??57 Years?Sex:??Female?:??1965?? Patient Information Discharge Location: M7 Primary Care Physician: Anne Talamantes DO Admit Date/Time: 08/17/23 10:15 Discharge Disposition Discharge Disposition: Home: No Services Discharge Diagnosis S/p SLIPMAN-D?? Medications Started None Medications Discontinued None Doses Changed None Future Appointments 1 week in device clinic 1-2 weeks w/ [facility] Course Patient is a pleasant 57-year-old female with past medical history significant for hypertension, hyperlipidemia, insulin-dependent diabetes, nonischemic cardiomyopathy with EF of around 20% (normal coronary angiogram October 2022 with persistent cardiomyopathy despite maximized guided directed medical therapy.?? Given her persistent severe cardiomyopathy and left bundle branch block underwent SLIPMAN-D August 17, 2023 which went well without any complications. Objective General: laying in bed Mouth: moist mucous membranes.? Neck: carotid pulses symmetrical.?No carotid bruit.? Cardiac:??Regular rate and rhythm,??no significant??murmur.?No JVD, no hepatojugular reflux.? Chest: clear, bilateral air entry. Abdomen: soft, nontender, bowel sounds present.? Peripheral exam:?No pedal edema, warm peripheries, no clubbing, no cyanosis.?pulses are symmetrical, 2+.? Neurologic exam is nonfocal.? . Physical Exam ?? 1. Severe nonischemic cardiomyopathy Left bundle branch block ?? Despite maximized medical therapy??her EF remains around 20%??and she eventually underwent??SLIPMAN-D implantation on August 17, 2023 which went well without any complications.?? She does have baselinesevere CKD??and has been on high-dose Entresto without any issues??with potassium??worsening kidneyfunction.?? She will continue with her current??guideline directed??medical therapy including??farxiga, Entresto??97/103??(has been on this dose since November 2022)??and metoprolol 25 mg twice daily. ?? Plan ?Continue current meds without changes ?Follow-up with primary shorthand reporter in 1 to 2 weeks ?Follow-up??with device clinic in 1 week ?We discussed importance of avoiding??lifting??anything above??5 pounds??on the left side??for at least??6 weeks to allow the leads to heal.?? She knows she is not to shower for next??week??but can use sponge bath.?? She can remove Tegaderm??in 5 days, but needs to allow the Steri-Strips to stay in place. Pending Results No Pending Results Patient Education Titles Living with a Pacemaker?? Discharge Instructions for Pacemaker Implantation?? ICD: Implantable Cardioverter Defibrillator?? Follow-Up Appointments Added Follow Up ?Time Frame ?Comments Pillo ALMAGUER, Bryant?Please call for a follow-up, wound??and device check Anne Talamantes DO?Within two weeks?Please call for a follow-up appointment Post Discharge Care Discharge ?08/18/23 10:42:00 EST Discharge Prescriptions ?None, 08/18/23 10:42:00 EST Home Health Face to Face ^HomeHealth[facility] * Sandra CAMACHO, Denise N: PERFORM Event Display: Discharge/Transfer Note Hospital Authored Date: I have seen and evaluated the patient and discussed the plan as outlined??below with the PA/DEPARTMENT STORE DOOR GREETER. I have spent a substantive time in chart review, history, ROS, and physical exam. I have personally reviewed the patient's lab and imaging studies. I agree with the assessment and plan outlined below with any addendum/exception noted here (if any). ?? Denise Flores MD Interventional Cardiology - [facility] [id number] * Ihsan ARAMBULA, Keyana Ballard: PERFORM Event Display: Patient Education/Instruction Authored Date: [id number] Inpatient Adult Discharge Instructions [address] [address] Name: SHIN RILEY : 1965 Visit: 08/17/2023 10:15:00 Current Date: 08/18/2023 11:33 Account: [id number] Inpatient Adult Discharge Instructions We would like to thank you for allowing us to assist you with your healthcare needs. The following includes patient education materials and information regarding your injury/illness. Our entire staffstrives to provide an excellent experience for our patients and their families. PLEASE ENSURE YOU FOLLOW-UP PER THE INSTRUCTIONS BELOW! ?? YOUR OPINION IS IMPORTANT TO US! Please complete the survey you may receive by mail or email. Your feedback will be used to make improvements to the healthcare experiences of our patients and their families. Surveys are administered by [employer] ?? If further treatment with your primary care physician or another doctor is recommended, it is important for you to keep the appointment. Call your primary care physician or return to the Emergency Department immediately if your condition worsens, fails to improve, or new symptoms develop. If you need to find a doctor, you can call [facility] Link for a referral at [phone] or toll free at [phone]) or log in to [email or web address].. ?? [facility], in keeping with [facility] guidance, no longer requires face masks for staff, patientsor visitors in most situations. Similiar to time spent indoors at other locations, there is the chance that you were exposed to repiratory viruses during your time with us (such as flu or COVID-19). If you develop symptoms concerning for a viral respiratory infection, please seek testing (and treatment if indicated) from your medical provider or home test kit. ?? You can view and manage your care through the patient portal or by using a health care tania of your choosing. [employer] is a website that allows you to securely view your medical information including your hospital discharge summary, office visit summaries, medications and follow-up visits. You can also request appointments, renew medications, and request access to your medical information using a health care tania of your choosing, or just ask a question. You can enroll at [email or web address] or register during your next office visit. You have been discharged from [facility], Patient Care Unit: M7. If you have any questions regarding these instructions after you leave, please call us and we will be happy to assist you. [facility] Your Care Team Attending Physician Donovan CAMACHO, Lukas Consulting Providers Sandra CAMACHO, Denise Huertas Discharging Providers Tip MARAVILLA, Kwadwo Gunderson Reason for Admission SYSTOLIC HF PRIMARY BIV ICD HV2 12PM ARR Tests Performed Below is a partial list of the tests performed during your hospitalization. You may have had other tests and procedures not included in this list. Please discuss all test results with your provider. ALT AST BUN CBC Comprehensive Metabolic Panel Creatinine GLUCOSE POC Potassium Level PT (INR) Type and Screen XR Chest 2 Views Frontal and Lat Primary Care Provider Anne Talamantes DO Advance Directive Health Care Proxy on File No Discharge Vitals Temperature: 98 DegF Weight: 79 kg Pulse Rate: 74 bpm ?? Respiratory Rate: 18 br/min ?? Systolic Blood Pressure:??143 mm Hg??High ?? Diastolic Blood Pressure: 72 mm Hg ?? Oxygen Saturation: 97 % ?? Studies Pending All tests and labs ordered during this hospital stay have been completed unless listed below. Please discuss all pending results with your provider listed above in these instructions. ?? No incomplete studies found What to do next Instructions From Your Doctor Discharge Orders You Need to Schedule the Following Appointments Follow Up with??Bryant Ferro DO Why: Please call for a follow-up, wound??and device check Where: ?? Follow Up with??Anne Talamantes DO When:??Within Within two weeks Why: Please call for a follow-up appointment Where: [address] [place] [address]- Discharge Medications SHIN RILEY :1965 Visit Date:08/17/2023 Medications: Please continue your medications until treatment is completed or stopped by your provider. Medications not listed below should be discontinued. Discuss any questions related to medications with your provider. What How Much When Instructions Next Dose Unchanged amiTRIPTYLINE (amitriptyline 50 mg oral tablet) 1 tab(s) Oral Daily at Bedtime Bedtime tonight? Unchanged Aspirin 81 Milligram Oral Daily In the AM Unchanged Cholecalciferol (Vitamin D3 2000 intl units oral tablet) 1 tab(s) Oral Daily in the morning In the AM Unchanged dulaglutide (Trulicity Pen 1.5 mg/ 0.5 mL subcutaneous solution) 1.5 Milligram Subcutaneous Infusion Every Wednesday Duration: 90 Days Wednesday Unchanged Ferrous Sulfate (FeroSul 325 mg oral tablet) 1 tab(s) Oral Daily EVERY EVENING ?? Before evening meal Unchanged Insulin Glargine (Lantus Solostar Pen 100 units/ mL subcutaneous solution) 35 unit(s) Subcutaneous Injection Daily at Bedtime Bedtime tonight? Unchanged Insulin Lispro (Humalog Kwik Pen 100 units/ mL subcutaneous injection) inject 8-20 units per sliding scale twice a day ?? Before evening meal Unchanged Metoprolol (metoprolol 25 mg oral tablet) 1 tab(s) Oral Twice a day Bedtime tonight? Unchanged Omeprazole (omeprazole 20 mg oral enteric coated capsule) 1 capsule Oral Twice a day Bedtime tonight? Unchanged Rosuvastatin (rosuvastatin 40 mg oral tablet) 1 tab(s) Oral Daily at Bedtime Bedtime tonight? Unchanged sacubitril-valsartan (Entresto 24 mg-26 mg oral tablet) 1 tab(s) Oral Twice a day Bedtime tonight? Test Results Below is a partial list of the most recent Laboratory test results done prior to this discharge. You may have had other tests and procedures not included in this list. Please discuss all test resultswith your provider. ALT (08/17/2023) ???ALT (SGPT) - 12 units/L AST (08/17/2023) ???AST (SGOT) - 16 units/L BUN (08/17/2023) ???BUN - 50 mg/dL CBC (08/18/2023) ???WBC - 8.1 k/mm3???RBC - 3.48 m/mm3???Hgb - 10.0 Gm/dL???Hct - 30.7 %???MCV - 88.2 femtoliters???MCH - 28.7 pg???MCHC - 32.6 g/dL???Platelet Count - 143 k/mm3???RDW-SD - 42.1 femtoliters???MPV - 10.5 femtoliters???Nucleated RBC (Automated) - 0.0 #/100 WBC'S???Abs. NRBC - 0.0 k/mm3 Comprehensive Metabolic Panel (08/18/2023) ???Sodium - 136 mmol/L???Potassium - 5.3 mmol/L???Chloride - 105 mmol/L???Bicarbonate Level - 22 mmol/L???Anion Gap - 9???Glucose Level - 246 mg/dL???BUN - 52 mg/dL???Creatinine-Blood - 4.7 mg/dL???Estimated GFR Creatinine - 10 ML/MIN/1.73 M2???Calcium - 8.5 mg/dL???Protein, Total - 6.2 Gm/dL???Albumin - 3.5 Gm/dL???AG Ratio - 1.3???Alkaline Phosphatase - 95 units/L???AST (SGOT) - 14 units/L???ALT (SGPT) - 6 units/L? ?Bilirubin, Total - <0.2 mg/dL Creatinine (08/17/2023) ???Creatinine-Blood - 4.5 mg/dL???Estimated GFR Creatinine - 11 ML/MIN/1.73 M2 GLUCOSE POC (08/17/2023) ???Glucose, POC - 299 mg/dL Potassium Level (08/17/2023) ???Potassium - 5.5 mmol/L PT (INR) (08/17/2023) ???INR - 1.0???Protime (PT) - 10.3 seconds Type and Screen (08/17/2023) ???Blood Type - O Negative???Antibody Screen - Negative Allergies (NKA means No Known Allergies) NKA Problems Active Problems??(2) Diabetes mellitus type 2?? Obese class I?? Education Materials Below is the list of Educational Leaflet Providered with your Discharge Instructions. Living with a Pacemaker?? Discharge Instructions for Pacemaker Implantation?? ICD: Implantable Cardioverter Defibrillator?? Valuables and Belongings I fully understand and agree that [facility] accepts no responsibility for all my personal property including clothing, toilet articles, radios, jewelry, dentures, hearing aids, rings, money, or any other property that is in my possession or is brought to me after admission. I understand certain valuables may be placed in a hospital safe for a short period of time. I understand that the hospital is not liable for loss or damage due to accident, fire, or other natural occurrence while said property is in the safe. I accept full responsibility for any personal property that I keep with me, and will not hold the hospital responsible in case of loss or disappearance. I acknowledge that i have been encouraged to send valuables and belongings home. ?? Date for Pt to Sign Valuables/Belongings: 08/17/23 12:01:00 ?? Valuables & Belongings ?? Clothes Electronic devices Jewelry Monetary Items Personal devices Miscellaneous Medications (Valuables) Valuables at Bedside Jacket, Pants, Shirt, Shoes, Undergarments Cell phone ?? Purse ? Valuables Sent Home ? Valuables Sent to Security ? Other Discharge Information ? Pulmonary Rehab Status?? Pulmonary Rehab Discharge Status?? Respiratory Rate: 18 br/min ? Common Emergency Awareness Tips IS IT A STROKE? Act FAST and Check for these signs: FACE Does the face look uneven? ARM Does one arm drift down? SPEECH Does their speech sound strange? TIME Call at any sign of stroke ?? Heart Attack Signs Chest discomfort: Most heart attacks involve discomfort in the center of the chest and lasts more than a few minutes, or goes away and comes back. It can feel like uncomfortable pressure, squeezing, fullness or pain. Discomfort in upper body: Symptoms can include pain or discomfort in one or both arms, back, neck, jaw or stomach. Shortness of breath: With or without discomfort. Other signs: Breaking out in a cold sweat, nausea, or lightheaded. Remember, MINUTES DO MATTER. If you experience any of these heart attack warning signs, call to get immediate medical attention! ?? Smoking can increase your chances of developing chronic health problems and can cause harmful effects to other family members in your house. If you smoke, you are strongly encouraged to quit. Please call [facility] Link at [phone] or [phone] ([phone]) or log in to [email or web address] for referrals to smoking cessation programs. ?? 701 Suicide & Crisis Lifeline is available 19/04 if you or someone you know needs to find a reason to keep living. By calling 026 you'll be connected to a skilled, trained counselor at a crisis center in your area. INPATIENT DISCHARGE INSTRUCTIONS SIGNATURE PAGE RILEYDAMIÁN VINCENTCELIA Location:[facility] Registration Date and Time:08/17/2023 10:15 EST Primary Care Physician: Anne Talamantes DO, Attending Physician: Lukas Man MD, I SHIN RILEY, have received the above patient education materials/instructions and have verbalized understanding. If ambulance or transport services are being used I further acknowledge being given a choice of service. ?? If you need to contact me, please call me at this number: . Patient/Mapping Editor Name: Patient/Mapping Editor Signature: Relationship to Patient: Witness Name/Signature: Date: * Keyana Champagne RN: PERFORM Event Display: Patient Education Leaflets Authored Date: [id number] Living with a Pacemaker ?? [id number] C??mo vivir con un marcapasos Despu??s de que le implanten un marcapasos, podr?? hacer beth todo lo que hac??a antes de la cirug??a. Aqu?? le damos algunos consejos para vivir olga con un marcapasos. Lleve enio tarjeta de identificaci??n Cuando le coloquen un marcapasos por primera vez, le raleigh??n enio tarjeta de identificaci??n con informaci??n importante sobre el dispositivo. Mu??stresela a saab m??dico, dentista o a cualquier otro proveedor de atenci??n m??dica que visite. Los marcapasos suelen activar los detectores de metales. Poreso, muestre la tarjeta al personal de seguridad, por ejemplo, en el control del aeropuerto. ?? Cosas a las que debe prestar atenci??n ??? Tenga precauci??n cuando use tel??fonos celulares y otros dispositivos electr??nicos. La mayor??a de las personas no tienen cecy??n problema al usar un tel??fono celular u otro dispositivo electr??avinash. Sin embargo, algunos celulares y dispositivos electr??nicos (jael relojes inteligentes) usanimanes potentes para la carga inal??mbrica que pueden interferir con el funcionamiento normal del marcapasos. Lo m??s seguro es usar los tel??fonos celulares en la oreja que est?? m??s alejada del marcapasos o usar el altavoz. Mantenga los equipos electr??nicos con imanes potentes lejos del marcapasos. No lleve el celular ni cecy??n otro dispositivo electr??avinash en el bolsillo del pecho sobre el marcapasos. Se aconseja llevarlos en un bolsillo que est?? debajo de la cintura o en un bolso. ??? Evite los imanes muy potentes. Estos imanes se encuentran en las dakota de detecci??n de seguridad, los detectores de metales y los sistemas antirrobo utilizados en oficinas, aeropuertos y otros lugaresde nydia seguridad. Muestre saab tarjeta de identificaci??n antes de pasar por los controles de seguridad. Tambi??n se encuentran en las m??quinas utilizadas para realizar resonancias magn??anant. Muchos marcapasos se consideran seguros a la hora de realizar enio resonancia magn??aziza (dispositivos compatibles con resonancia magn??aziza). Sin embargo, aun as?? se deben areli precauciones. Saab proveedorde atenci??n m??dica debe darle autorizaci??n para realizarse enio resonancia magn??aziza. ??? Evite los irving el??ctricos potentes. Estos??se jean carlos en las vallejo de transmisi??n de radio y los aparatos para radioaficionados. Tambi??n los jean carlos los equipos el??ctricos de nydia potencia y un motor en marcha. No se incline sobre el motor encendido de un autom??eric con el cap?? abierto y no trabaje sobre alternadores.??Si utiliza herramientas el??ctricas grandes, jael enio soldadora de arco industrial, hable con saab m??dico.??La mayor??a de los aparatos electrodom??sticos y de jard??n no causan problemas. ??? Llame al m??dico si tiene alg??n s??ntoma que pueda ser indicio de que el marcapasos noest?? funcionando correctamente. Estos incluyen mareos o palpitaciones. Si enio se??al causa interferencia Si el marcapasos se encuentra cerca de michael de los equipos mencionadas anteriormente, la se??al el??ctrica puede verse afectada y el marcapasos se puede no funcionar correctamente. Si deonna que maromlejo estado expuesto a enio se??al de carrie tipo, llame a saab m??dico y expl??quele lo que ocurri??. Tambi??n ll??rodriguez si siente que hay alguna interferencia con saab dispositivo. ?? Cosas que puede usar A continuaci??n, mencionamos algunos de los equipos que puede usar y lo que puede hacer sin problemas: ??? Hornos de microondas ??? Computadoras ??? Secadores de alessandra ??? Herramientas el??ctricas para hacer las tareas del hogar ??? Radios, televisores y reproductores de m??kyler ??? Auriculares con Bluetooth ??? Mantas el??ctricas y almohadillas calefactoras ??? Aspiradoras ??? Andar en autom??eric ?? Visitas de control Planifique controles halina??dicos con el proveedor de atenci??n m??dica para controlar la bater??a del marcapasos. Toña estos controles, el proveedor tambi??n se asegurar?? de que el marcapasos funcione correctamente. La funci??n y la mata ??til de algunos dispositivos se pueden controlar con un monitor remoto que se puede instalar en saab casa. Estos controles deben realizarse, en promedio, cada6??meses, o seg??n la recomendaci??n de saab proveedor de atenci??n m??dica. La duraci??n de la bater??a, el estado de los cables y las distintas funciones del marcapasos se pueden medir con enio consulta de datos. Para consultar los datos, el dispositivo se conecta a un programador mediante enio vara especial que se apoya en la piel sobre el marcapasos. Los datos se env??an desde el dispositivo hasta el programador y luego se eval??an. La mayor??a de los sistemas de consulta de datos caseros utilizan tecnolog??a inal??mbrica para conectar el dispositivo a un equipo especial, que registra los datos y se los env??a al m??dico. Seg??n el tipo de dispositivo que tenga implantado y la medida en que saab cuerpo use la electroestimulaci??n del marcapasos, puede que tenga que implantarse un dispositivo (o enio bater??a) nuevo en alg??n momento; por lo general, cada 8??a??10??a??os. ?? Last Reviewed Date: 2020 ?? [phone] [employer]. Todos los derechos reservados. Esta informaci??n no pretende sustituir la atenci??n m??dica profesional. S??lo saab m??dico puede diagnosticar y tratar un problema de marina. ?? * Keyana Champagne RN: PERFORM Event Display: Patient Education Leaflets Authored Date: Discharge Instructions for Pacemaker Implantation ?? [id number] Instrucciones de nydia para la implantaci??n de un marcapasos Se someti?? a un procedimiento para implantarle un marcapasos. Enio vez dentro del organismo, carrie madison??o dispositivo el??ctrico previene que el coraz??n juan diego muy lentamente. Puede ayudarlo a sentirse mejor y a tener m??s energ??a. A medida que se recupere, siga las instrucciones que le den, incluso las que encontrar?? a continuaci??n. Actividad ??? Siga las instrucciones que le den con respecto a limitar kirill actividades. ??? Si le pusieron el brazo en un cabestrillo, mant??ngalo as?? toña todo el tiempo que le haya indicado el proveedor de atenci??n m??dica. En la mayor??a de los casos, el cabestrillo se retira al d??a siguiente. Sin embargo, es posible que le pidan que duerma con el cabestrillo puesto toña alg??n tiempopara prevenir da??os al marcapasos mientras usted alanis. ??? No levante el brazo del lado de la incisi??n por encima del hombro ni estire el brazo detr??s de la espalda toña el tiempo que le indique el proveedor de atenci??n m??dica. [place] le permitir?? a los electrodos del marcapasos fijarse firmemente dentro del coraz??n. ??? No maneje hasta que el proveedor de atenci??n m??dica le diga que puede hacerlo. P??justin a alguien que lo lleve de vuelta a saab casa despu??s del procedimiento. ??? Pregunte al proveedor de atenci??n m??dica cu??ndo podr?? volver al trabajo. Seg??n el tipo de trabajo qu e arun, el proveedor de atenci??n m??dica puede indicar algunos l??mites temporales hasta que le d?? el nydia total. ??? Igualmente, puede ejercitarse. [place] es nash para el cuerpo y el coraz??n. Hable con el proveedor de atenci??n m??dica acerca de un plan de ejercicios y de tipos de ejercicios quelimiten cualquier da??o al marcapasos. ?? Otras precauciones ??? Siga cuidadosamente las instrucciones del proveedor de atenci??n m??dica para el cuidado de heridas. Si tiene un vendaje, pregunte si debe quitarlo o mantenerlo hasta saab pr??xima visita. Nunca aplique cremas, lociones ni productos, jael per??xido, sobre enio incisi??n a menos que el proveedor de atenci??n m??dica se lo indique. No permita que la incisi??n se humedezca hasta que el proveedor de atenci??n m??dica lo autorice. ??? Revise la incisi??n para detectar signos de infecci??n. Estos incluyen enrojecimiento, hinchaz??n, supuraci??n y calor. Arun esto toña 7??d??as o seg??n le indique el proveedor de atenci??n m??dica. ??? Antes de recibir cualquier tratamiento, notif??queles a todos los proveedores de atenci??n m??dica, incluido saab dentista, que tiene un marcapasos. ??? Lleve siempre consigo la tarjeta de identificaci??n de saab marcapasos. Esta tarjeta contiene informaci??n sobre el marcapasos. Puede mostrar esta tarjeta si el marcapasos activa un detectorde metales. Tambi??n debe mostrarla para evitar la exploraci??n con detectores de metales manuales.??? Tenga precauci??n cuando use tel??fonos celulares y otros dispositivos electr??nicos. Mant??ngalos a enio distancia de, por lo menos, 15??cm (6??pulgadas) de saab marcapasos. Lo m??s seguro es usar los tel??fonos celulares en la oreja que est?? m??s alejada del marcapasos o usar el altavoz. No lleve el tel??fono ni otro dispositivo electr??avinash en el bolsillo del pecho, sobre el marcapasos. Se aconseja llevarlos en un bolsillo que est?? debajo de la cintura o en un bolso. La mayor??a de los tel??fonos celulares y dispositivos electr??nicos no interfieren con los marcapasos. Sin embargo, algunos celulares y dispositivos electr??nicos (jael relojes inteligentes y auriculares) usan imanes potentes para la carga inal??mbrica que pueden interferir con el funcionamiento del marcapasos. El im??n que se usa para cargar y otros accesorios con imanes tambi??n pueden interferir en el funcionamiento del marcapasos. Mantenga estos dispositivos a enio distancia m??sylwia de 30??cm (12??pulgadas) del marcapasos cuando los guarde o los cargue por v??a inal??mbrica. Siga toda instrucci??n que le hayandado el proveedor de atenci??n m??dica y el fabricante del marcapasos. ??? Evite los imanes muy hilary. Por ejemplo, las varitas de seguridad port??tiles. Hoy en d??a, la mayor??a de los marcapasos son compatibles con los esc??neres de resonancia magn??aziza. Preg??ntele al proveedor de atenci??n m??dica si saab marcapasos es michael de estos. ??? Evite los irving el??ctricos potentes. Por ejemplo, losque producen las vallejo de radiotransmisi??n, los transmisores de radioaficionados y los equipos el??ctricos industriales. ??? Evite inclinarse sobre el motor encendido de un auto con el cap?? abierto. Un motor encendido crea un umkumiut el??ctrico. La mayor??a de los aparatos electrodom??sticos y de jard??n no causan problemas. Si usa alguna herramienta el??ctrica esvin, jael enio soldadora de arcoindustrial, hable con el proveedor de atenci??n m??dica. ??? Siga cualquier otra instrucci??n del proveedor de atenci??n m??dica sobre otros dispositivos y procedimientos que debe evitar. ?? Atenci??n de seguimiento ??? Dianna a saab cardi??logo en los pr??ximos 7??a 10??d??as. Llame y pida unacita brennan pronto jael regrese a saab casa. ??? Programe citas de seguimiento regulares con el proveedor de atenci??n m??dica. Le revisar?? el marcapasos para asegurarse de que funcione adecuadamente. ??? Debe programar chequeos halina??dicos con el proveedor de atenci??n m??dica para evaluar la duraci??n de la bater??a del marcapasos. Seg??n saab dispositivo y cu??nto use saab cuerpo las funciones reguladoras del marcapasos, puede necesitar que se le implante un dispositivo generador nuevo en alg??n momento. Por lo general, ocurre cada 5??a 7??a??os. ??? Algunos marcapasos tienen incorporada enio antena que puede enviar informaci??n, jael se??ales de problemas, por Internet al proveedor de atenci??n m??dica. Preg??ntele al proveedor de atenci??n m??dica si saab marcapasos tiene la opci??n de monitoreo remoto. ?? Cu??ndo llamar al proveedor de atenci??n m??dica Llame al proveedor de atenci??n m??dica de inmediato si tiene alguno de estos s??ntomas: ??? Mareos??? Falta de energ??a ??? Contracciones involuntarias en los m??sculos del pecho ??? Pulso acelerado o ritmo card??aco intenso ??? Falta de aire ??? Dolor alrededor del marcapasos ??? Fiebre de 100.4?F (38?C) o superior, o seg??n le indique el proveedor de atenci??n m??dica ??? Otros signos de infecci??n, jael enrojecimiento, hinchaz??n, supuraci??n o calor en el sitio de la incisi??n ??? La incisi??n no est?? sanando, se separa o se abre ??? Hipo que no desaparece ??? Enrojecimiento, hinchaz??n severa, supuraci??n, empeoramiento del dolor, sangrado o calor alrededor de la incisi??n ??? Sensaci??n de que el generador del marcapasos est?? suelto o jael si se moviera dentro del bolsillodebajo de la piel ?? Cu??ndo llamar al?? 911 Llame al?? 911 si tiene algo de lo siguiente: ??? Dolor de pecho ??? Dificultad para respirar ??? Desmayos ?? Last Reviewed Date: 2022 ?? [id number] [employer]. Todos los derechos reservados. Esta informaci??n no pretende sustituir la atenci??n m??dica profesional. S??lo saab m??dico puede diagnosticar y tratar un problema de marina. ?? * Keyana Champagne RN: PERFORM Event Display: Patient Education Leaflets Authored Date: ICD: Implantable Cardioverter Defibrillator ?? Desfibrilador cardioversor implantable (JENNIFER) - Video Un JENNIFER ayuda a la gente que tiene problemas graves con el ritmo card??aco. Se coloca en el pecho y env??a enio descarga al coraz??n cuando detecta un ritmo anormal. Dianna c??mo funciona y c??mo keena vidas. Para fani el video ir a esta direccion web: https://BeSmart/[email or web address] O, escanear carrie codigo QR con el telefono inteligente ?? [employer]. All rights reserved. This information is not intended as a substitute for professional medical care. Always follow your healthcare professional's instructions. ?? * Event Display: Hemodynamic Procedure Report Authored Date: History and physical note * Event Display: History and Physical Hospital Authored Date: EKG study * Event Display: ECG 12-Lead Authored Date: Please click on pdf link to open report * Event Display: ECG 12-Lead Authored Date: Ventricular Rate: 79 BPM Atrial Rate: 79 BPM P-R Interval: 140 ms QRS Duration: 116 ms Q-T Interval: 416 ms QTC Calculation(Bazett): 477 ms P [place]: 70 degrees R [place]: -23 degrees T [place]: 162 degrees Atrial-sensed ventricular-paced rhythm Abnormal ECG When compared with ECG of 17-AUG-2023 11:08, Electronic ventricular pacemaker has replaced Sinus rhythm Confirmed by JOVANY BLEDSOE MD ([id number]) on 08/18/2023 10:39:42 AM [place]: JOVANY BLEDSOE MD * Event Display: ECG 12-Lead Authored Date: Please click on pdf link to open report * Event Display: ECG 12-Lead Authored Date: Ventricular Rate: 99 BPM Atrial Rate: 99 BPM P-R Interval: 152 ms QRS Duration: 164 ms Q-T Interval: 412 ms QTC Calculation(Bazett): 528 ms P [place]: 70 degrees R [place]: -24 degrees T [place]: 110 degrees Normal sinus rhythm Left bundle branch block Abnormal ECG When compared with ECG of 29-OCT-2022 07:26, No significant change was found Confirmed by RAKAN CAMACHO, [facility] ([id number]) on 08/17/2023 2:17:10 PM [place]: RAKAN CAMACHO,[facility] Progress note * Evelyn Mock LPN: PERFORM, SIGN, VERIFY Event Display: Progress Note Hospital Authored Date: Patient: SHIN RILEY Age: 57 years Sex: Female : 1965 Associated Diagnoses: None Author: Evelyn Mock LPN Findings Problem Related to Alteration in Cardiac Function (new) : Alteration in Cardiac Function/new 08/17/2023 22:00 EST Alteration in Cardiac Status Related to Cardiac Procedure Goals & Outcomes, Cardiac Status Pt will resume/maintain adequate cardiac output, Pt will resume/maintain adequate hemodynamic status, Pt will resume/maintain adequate respiratory function, Pt will resume/maintain intact neuro function, Pt/caregiver will state understanding of diagnosis Cardiac Interventions Implemented Assess/monitor cardiac status, Assess/monitor neuro status, Assess/monitor respiratory status, If no bowel movement in 3 days activate bowel regime, Monitor & document daily weight BH Goals/Interventions, Cardiac Yes Cardiac, Problem Start 08/17/2023 23:20 Reviewed Plan with, Cardiac Status Patient Patient Progression, Cardiac Status Plan Initiation . Nursing Data Cardiac Data. : Cardiac Data. 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 Respiratory/Pulmonary Data. : Respiratory/Pulmonary Data. 08/17/2023 23:17 EST Respiratory WNL . Vital Signs : VITAL SIGNS SECTION 08/17/2023 22:25 EST Pulse Rate 88 bpm Systolic Blood Pressure 150 mm Hg H Diastolic Blood Pressure 84 mm Hg 08/17/2023 19:34 EST Early Warning Score 0.00 08/17/2023 19:00 EST Temperature 98.5 DegF Temperature Route Oral Pulse Rate 87 bpm Respiratory Rate 18 br/min Systolic Blood Pressure 148 mm Hg H Diastolic Blood Pressure 69 mm Hg Blood pressure sites Arm, right Pulse Pressure 79 mm Hg Oxygen Saturation 97 % Mode of Delivery (Oxygen) Room air . Psychosocial : Psychosocial Data. 08/17/2023 22:00 EST Affect/Behavior Appropriate, Calm, Cooperative . Evaluation Pt is A&OX3, VSS. Lung sounds clear on room air. Paced on tele, no c/o chest pain dizziness or SOB. S/P R chest pacer placement, no oozing or hematoma noted and dressing dry and intact. Tylenol given for 5/10 pacer site pain. Cefazolin given per order. OOB independently. Bed in low lock position and call hope at bedside.. * Carmen Das RN: PERFORM, SIGN, VERIFY Event Display: Progress Note Hospital Authored Date: [id number] Patient: SHIN RILEY Age: 57 years Sex: Female : 1965 Associated Diagnoses: None Author: Carmen Das RN Findings Evaluation pt arrived to M7 from CARE unit s/p BiV ICD placement. Oriented to unit, room, and call hope system. Pt is Aox3, maori and ecuadorean speaking on RA, Paced on tele in the 80's. Pressure dsg to left chest CDI MD to remove tomorrow. Pt OOB to bathroom, gait is steady, chest x-ray ordered for tomorrow AM. Bed is locked, in the lowest position, call hope is in reach. . Patient Care team information Care Team Personnel Name: Catherine Morales RN Position: S RN Member Role: Primary Care Nurse Name: Anne Talamantes DO Position: [facility] Outreach Member Role: PCP Address: Address: [address] [place] [address]- Care Team Related Persons Name: YANG CHATTERJEE Address: home [address] [place] [address] Name: RILEYJOCELYNTRAE Address: home [address] [place] [address]
--- OUTSIDE RECORDS SUMMARY | 2024-08-01 21:13 | XMS_ITS | Continuity of Care Document ---
Author Organization [facility] Address [address] [place] [id number]- Care Team Providers Care Scada Operator Name Role Phone Anne Talamantes DO Primary Care Physician [phone] Encounter [facility] [place] [id number] Date(s): 08/05/20 - 09/04/20 [facility] [address] [place] [id number] Attending Physician: Miles Brooke Admitting Physician: Miles Brooke Referring Physician: AdmMiles rosenberg Allergies, Adverse Reactions, Alerts Substance Reaction Severity [...]
--- OUTSIDE RECORDS SUMMARY | 2024-08-01 21:13 | XMS_ITS | Continuity of Care Document ---
Author Organization [facility] Address [address] [place] [id number]- Care Team Providers Care Ingot Passer Name Role Phone Anne Talamantes DO Primary Care Physician Encounter [facility] R [id number] Date(s): 08/29/19 - 12/27/19 [facility] [address] [place] [id number] [facility] Attending Physician: Mary Molina MD Admitting Physician: Mary Molina MD Referring Physician: Anne Talamantes DO Allergies, [...]
--- OUTSIDE RECORDS SUMMARY | 2024-08-01 21:13 | XMS_ITS | Continuity of Care Document ---
Author Organization [facility] Address [address] [place] [id number]- Care Team Providers Care Planting Material Remover Name Role Phone Anne Talamantes DO Primary Care Physician [phone] [id number] Date[facility] 10/25/20 - 01/23/21 [facility] [address] [place] [id number] Attending Physician: Mary Molina MD Admitting Physician: [...]
--- OUTSIDE RECORDS SUMMARY | 2024-08-01 21:13 | XMS_ITS | Continuity of Care Document ---
Author Organization [facility] ter Address [address] [place] [address]- Care Team Providers Care Ginger Farmer Name Role Phone Ivonnedaphne Anne ALMAGUER Primary Care Physician [phone] Encounter [facility] [place] Date(s): 10/29/22 - 10/29/[address] [address] Discharge Disposition: A-D/C Home Attending Physician: Katalina Abarca MD Admitting Physician: Katalina Abarca MD Referring Physician: Bryant Ferro DO Allergies, Adverse Reactions, Alerts No Known Allergies [...] at bedtime Start Date: 04/21/19 Status: Ordered Metoprolol Succinate [...] Confirmed Active Obese class I Confirmed Active Vital Signs Most recent to oldest [Reference Range]: 1 2 3 Height 155 cm (10/29/22 8:04 AM) 155 cm (10/29/22 7:58 AM) Weight 78.1 kg (10/29/22 8:04 AM) 78.1 kg (10/29/22 7:58 AM) Oxygen Saturation [94-100 %] 97 % (10/29/22 12:45 PM) 97 % (10/29/22 12:15 PM) 96 % (10/29/22 11:45 AM) Pulse Rate [55-90 bpm] 90 bpm (2/2/23 8:04 AM) Body Mass Index [18.5-24.99 kg/m2] 32.51 kg/m2 *>HHI* (10/29/22 8:04 AM) Blood Pressure [90-138/55-84 mm Hg] 154/86mm Hg *H* (10/29/22 12:45 PM) 156/87mm Hg *H* (10/29/22 12:15 PM) 155/85mm Hg *H* (10/29/22 11:45 AM) Respiratory Rate [16-30 br/min] 21 br/min (10/29/22 12:45 PM) 18 br/min (10/29/22 12:30 PM) 19 br/min (10/29/22 12:15 PM) Temperature [96.8-100.4 DegF] 97.0 DegF (10/29/22 8:04 AM) Mode of Delivery (Oxygen) Room air (10/29/22 12:45 PM) Room air (10/29/22 12:15 PM) Room air (10/29/22 11:45 AM) Blood pressure sites Arm, left (10/29/22 12:45 PM) Arm, left (10/29/22 12:15 PM) Arm, right (10/29/22 8:04 AM) Temperature Route Temporal (10/29/22 8:04 AM) Dry Weight 78.1 kg (10/29/22 7:58 AM) Weight Obtained Via Standing scale (10/29/22 8:04 AM) Standing scale (10/29/22 7:58 AM) Dry Weight Obtained Via Standing scale (10/29/22 7:58 AM) Cardiac catheterization study * Event Display: Cardiac User Experience Designer Report Authored Date: Cardiac Diagnostic Report Demographics Patient Name OSVALDO MELISSA Gender Female [employer] Room Number B210 Height 61.02 inches Date of 1965 Weight 172.18 pounds Age 57 year(s) BSA 1.77 m2 Accession Number [id number] BMI 32.51 kg/m2 Referring Physician Bryant Ferro DO Date of Study 10/29/2022 Katalina Quiros Performing Physician Katalina Abarca Fellow Jerrod Duong MD Interventional Physician Procedure Procedure Type Diagnostic procedure:Coronary Angiography with [facility] Miscellaneous:ULTRASOUND GUIDANCE [facility] Diagnostic Catheterization Status:Elective Indications Indications: Cardiomyopathy. Clinical History Admission Medications + +------+-------+ + + +---------+ !Medication !Dosage!Times !Last !Last !Administered !Comments ! ! ! !Per Day!Delivery !Delivery ! ! ! ! ! ! !Date !Time ! ! ! + +------+-------+ + + +---------+ !Aspirin (any)!81 mg !x 1 !10/29/2022 !00:00 !Yes ! ! + +------+-------+ + + +---------+ Clinical Evaluation Leading to Procedure - There were no CAD presentation symptoms. - There were no anginal symptoms. Anti-anginal medications were prescribed during the past two weeks. The medication is: Beta Blockers. - The patient was diagnosed with a heart failure condition. Heart failure type: Systolic. - The patient's heart failure status was assessed as NYHA Class II, with CHF symptoms of GUILLEN - The reason for the patient's lab associate visit is evaluation of cardiomyopathy and/or evaluation of left ventricular systolic dysfunction. Pharma Nuclear study showed Positive results with Intermediate ischemic risk. [facility] Risk Factors The patient risk factors include:obesity, physical activity, treated and uncontrolled hypercholesterolemia, treated and uncontrolled hypertension, insulin-treated diabetes mellitus, last creatinine: 3.8 mg/dl, creatinine clearance: 19.65 ml/min, dyslipidemia and prior heart failure. Additional Clinical History:57F with history of hypertension, hyperlipidemia, insulin dependent diabetes mellitus, HFrEF, CKD, and obesity who underwent echocardiogram for dyspnea and was found to have severe global hypokinesis with a LVEF of 22%. Subsequent pharmacological stress test with nuclear imaging demonstrated a severe perfusion defect in the mid anteroseptal, apical, and septal bronson. As such, patient is planned for left heart catheterization for coronary anatomy evaluation. Procedure Data Procedure Date Date: 10/29/2022Start: 08:53End: 09:22 The procedure was explained in detail to the patient. Risks, complications and alternative treatments were reviewed. Written consent was obtained. Entry Locations - Retrograde Percutaneous access was performed through the Right Radial artery (Primary location). A 6 Fr sheath was inserted. Hemostasis was successfully obtained using Prelude Sync EZ. Procedure Medications - Versed (Midazolam) I.V. 1 mg. - Fentanyl I.V. 50 mcg. - Lidocaine 2% S.C. Right Wrist 2 ml. - Oxygen NC 2 l/min. - Nitroglycerin I.A. 200 mcg. Sedation: My intra-service moderate sedation time was: from 856 to 919. Refer to procedural log for detailed chronological information. Contrast Material - Omnipaque 30 ml Diagnostic Catheters - A5F JR4 INFINITI CATHETERwas used for: Right coronary angiography. - A5F JR4 INFINITI CATHETERwas used for: Right coronary angiography. - ADIAGNOSTIC CATH 5F JL3.5 100cm PERFORMAwas used for: Left coronary angiography. Fluoroscopy Time: Diagnostic: 2:12 minutes. Total: 2:12 minutes. Fluoroscopy Dose: Diagnostic: 376 mGy. Total: 376 mGy. Dose Area Product:Diagnostic: 61679 mGy/cm2. Total: 51590 mGy/cm2. Dose Area Product:Diagnostic: [id number] ??Gy/m2. Total: 1882.8980439861398 ??Gy/m2. Procedure Narrative Timeout was performed prior to the procedure. Right radial arterial access was obtained using a 6 Fr slender sheath. Selective right coronary angiography was performed using a 5 Fr JR4 catheter. Selective left coronary angiography was performed using a 5 Fr JL3.5 catheter. Left heart catheterization was performed using a 5 Fr JR4 catheter. Hemostasis was achieved using a TR band. Hemodynamics Condition: Rest O2 Consumption: Estimated: 189.36Heart Rate: 101 bpm Pressures (mmHg) +-----+ + !Site !Pressure ! +-----+ + !LV !145/9 ,34 ! +-----+ + !AO !139/75 (103)! +-----+ + !LV !145/10 ,35 ! +-----+ + Valve Gradients and Areas +------+----+----+----+-----+----+------+ !Valve !Peak!Mean!Area!Index!Flow!Source! +------+----+----+----+-----+----+------+ !Aortic!6 !0 ! ! ! ! ! +------+----+----+----+-----+----+------+ !Aortic!6 !0 ! ! ! ! ! +------+----+----+----+-----+----+------+ Shunts Oxygen Values O2 Capacity 121.04 O2 Consumption 189.36 Conclusions Diagnostic Summary Coronary angiogram/[facility] showed: 1. Right dominant circulation. 2. Left main large size vessel and is angiographically normal. 3. LAD is a large size vessel with minimal luminal irregularities. 4. LCx is a moderate size vessel with minimal luminal irregularities. 5. RCA is a large size vessel with minimal luminal irregularities. 6. LVEDP is 35 mmHg. Conclusion: No angiographic evidence of obstructive CAD. Elevated left sided filling pressures. Diagnostic Recommendations Guideline directed optimal medical therapy. Evaluation for other etiologies for non-ischemic cardiomyopathy. Hydrate 75 cc/hr for 3 hours post cath. Monitor BUN/Cr. Patient will need to follow up with nephrology. Signatures VA LV function assessed as:Abnormal. Ejection Fraction - Method: Echocardiography. EF%: 22.Date: 08/19/2022. * Event Display: Cardiac User Experience Designer Report Authored Date: * Event Display: Cardiac User Experience Designer Report Authored Date: EKG study * Event Display: ECG 12-Lead Authored Date: Please click on pdf link to open report * Event Display: ECG 12-Lead Authored Date: Ventricular Rate: 93 BPM Atrial Rate: 93 BPM P-R Interval: 142 ms QRS Duration: 156 ms Q-T Interval: 426 ms QTC Calculation(Bazett): 529 ms P [place]: 68 degrees R [place]: -20 degrees T [place]: 150 degrees Normal sinus rhythm Left bundle branch block Abnormal ECG When compared with ECG of 20-APR-2019 18:01, Left bundle branch block is now Present Confirmed by DEVAN HE ([id number]) on 10/29/2022 9:44:27 PM [place]: DEVAN HE Note * Lee Ann Fuentes: PERFORM Event Display: Discharge/Transfer Note Hospital Authored Date: Nursing Discharge Note Entered On: 10/29/2022 13:05 EST Performed On: 10/29/2022 12:57 EST by Lee Ann Fuentes Nursing Discharge Note 2 Discharge Time : 10/29/2022 12:57 EST Discharge Level of Care at Discharge : Home/Alf/Foster Care Supervisor Paint Utilized : Yes Patient Left Unit Via : Wheelchair Patient Accompanied Off Unit with : Responsible adult DC Instructions Provided & Signed by Pt : Yes Patient Understands D/C Instructions : Yes Verbalized Understanding of D/C Plan By : Patient Patient Instructions Discharge Signed : Yes Did Pt have Specialty Bed or Wound Vac : No Lee Ann Fuentes - 10/29/2022 13:05 EST * Lee Ann Fuentes: PERFORM, MODIFY Event Display: Patient Education/Instruction Authored Date: [id number] Inpatient Adult Discharge Instructions [address] [address] Name: SHIN RILEY : 1965 Visit: 10/29/2022 06:33:00 Current Date: 10/29/2022 10:22 Account: [id number] Inpatient Adult Discharge Instructions We would like [...] and their families. Surveys are administered by [employer] ?? If further treatment with your primary care physician or another doctor is recommended, it is important for you to keep the appointment. Call your primary care physician or return to the Emergency Department immediately if your condition worsens, fails to improve, or new symptoms develop. If you need to find a doctor, you can call [facility] for a referral at [phone] or toll free at [phone] or log in to [email or web address].. ?? You can view and manage your care through the patient portal or by using a health care tania of your choosing. [employer] is a website that allows you to securely view your medical information including your hospital discharge summary, office visit summaries, medications and follow-up visits. You can also request appointments, renew medications, and request access to your medical information using a health care tania of your choosing, or just ask a question. You can enroll at [email or web address] or register during your next office visit. You have been discharged from [facility], Patient Care Unit: CARE. If you have any questions regarding these instructions after you leave, please call us and we will be happy to assist you. [facility] Your Care Team Attending Physician Rima CAMACHO, Katalina Lux Discharging Providers Jerrod Duong MD Reason for Admission CARDIOMYOPATHY [facility] 6:30AM ARR HV2 DST Tests Performed Below is a partial list of the tests performed during your hospitalization. You may have had other tests and procedures not included in this list. Please discuss all test results with your provider. BUN CBC Creatinine Electrolytes GLUCOSE POC INR Type and Screen Primary Care Provider Anne Talamantes DO Advance Directive Health Care Proxy on File No Discharge Vitals Temperature: 97 DegF Height: 155 cm Pulse Rate: 90 bpm Weight: 78.1 kg Respiratory Rate: 21 br/min Body Mass Index:??32.51 kg/m2??Critical Systolic Blood Pressure:??140 mm Hg??High Body surface area: 1.83 Diastolic Blood Pressure: 76 mm Hg ?? Oxygen Saturation:??92 %??Low ?? Studies Pending All tests and labs ordered during this hospital stay have been completed unless listed below. Please discuss all pending results with your provider listed above in these instructions. ?? No incomplete studies found What to do next Instructions From Your Doctor Discharge Orders Instructions from your Care Team Faye un seguimiento con saab doctor de kirill ri??ones. Saab trabajo de laboratorio renal fue elevado. ?? Seguimiento con saab cardi??logo primario. Discharge Medications OSVALDO SHIN :1965 Visit Date:10/29/2022 Medications: Please continue your medications until treatment is completed or stopped by your provider. Medications not listed below should be discontinued. Discuss any questions related to medications with your provider. What How Much When Instructions Next Dose Unchanged amiTRIPTYLINE (amitriptyline 50 mg oral tablet) 1 tab(s) Oral Daily at Bedtime Unchanged Aspirin 81 Milligram Oral Daily Unchanged Cholecalciferol (Vitamin D3 2000 intl units oral tablet) 1 tab(s) Oral Daily in the morning Unchanged dulaglutide (Trulicity Pen 1.5 mg/ 0.5 mL subcutaneous solution) 1.5 Milligram Subcutaneous Infusion Every Wednesday Duration: 90 Days Unchanged Durable Medical Equipment (Compression Stockings) See instructions surgical, calf length 30-40 mm Hg ?? Unchanged Durable Medical Equipment (Freestyle Lite Monitor) See instructions To use 4 times/ day ?? Diagnosis : DM type 2 ?? Unchanged Durable Medical Equipment (Freestyle Lite Test Strips) See instructions Duration: 30 Days to use 4 times/ day Diabetes Mellitus type 2 ?? Unchanged Ferrous Sulfate (FeroSul 325 mg oral tablet) 1 tab(s) Oral Daily EVERY EVENING ?? Unchanged Insulin Glargine (Lantus Solostar Pen 100 units/ mL subcutaneous solution) 35 unit(s) Subcutaneous Injection Daily at Bedtime Unchanged Insulin Lispro (Humalog Kwik Pen 100 units/ mL subcutaneous injection) inject 8-20 units per sliding scale twice a day ?? Unchanged Metoprolol (Metoprolol Succinate ER 200 mg oral tablet, extended release) 1 tab(s) Oral Daily in the morning Unchanged Omeprazole (omeprazole 20 mg oral enteric coated capsule) 1 capsule Oral Twice a day Unchanged Rosuvastatin (rosuvastatin 40 mg oral tablet) 1 tab(s) Oral Daily at Bedtime Unchanged sacubitril-valsartan (Entresto 24 mg-26 mg oral tablet) 1 tab(s) Oral Twice a day Test Results Below is a partial list of the most recent Laboratory test results done prior to this discharge. You may have had other tests and procedures not included in this list. Please discuss all test resultswith your provider. BUN (10/29/2022) ???BUN - 46 mg/dL CBC (10/29/2022) ???WBC - 7.7 k/mm3???RBC - 3.21 m/mm3???Hgb - 8.9 Gm/dL???Hct - 28.8 %???MCV - 89.7 femtoliters???MCH - 27.7 pg???MCHC - 30.9 g/dL???Platelet Count - 191 k/mm3???RDW-SD - 44.8 femtoliters???MPV - 10.4 femtoliters???Nucleated RBC (Automated) - 0.0 #/100 WBC'S???Abs. NRBC - 0.0 k/mm3 Creatinine (10/29/2022) ???Creatinine-Blood - 3.8 mg/dL???Estimated GFR Creatinine - 13 ML/MIN/1.73 M2 Electrolytes (10/29/2022) ???Sodium - 141 mmol/L???Potassium - 4.8 mmol/L???Chloride - 105 mmol/L???Bicarbonate Level - 23 mmol/L???Anion Gap - 13 GLUCOSE POC (10/29/2022) ???Glucose, POC - 215 mg/dL INR (10/29/2022) ???INR - 1.0???Protime (PT) - 10.9 seconds Type and Screen (10/29/2022) ???Blood Type - O Negative???Antibody Screen - Negative Allergies (NKA means No Known Allergies) NKA Problems Active Problems??(2) Diabetes mellitus type 2?? Obese class I?? Education Materials Below is the list of Educational Leaflet Providered with your Discharge Instructions. Discharge Instructions for Cardiac Catheterization?? Cardiac Catheterization, Bleeding or Hematoma After?? Procedural Sedation, Recovery (Adult)?? Surgery Radial Cath Approach Discharge Instructions?? Valuables and Belongings I fully understand and agree that [facility] accepts no responsibility for all my [...] to send valuables and belongings home. ?? Review of Valuable and Belonging List: With patient Date for Pt to Sign Valuables/Belongings: 10/29/22 08:04:00 ?? Valuables & Belongings ?? Clothes Electronic devices Jewelry Monetary Items Personal devices Miscellaneous Medications (Valuables) Valuables at Bedside Jacket, Pants, Shirt, Shoes, Undergarments ? Purse ? Valuables Sent Home ? Valuables Sent to Security ? Other Discharge Information ? Pulmonary Rehab Status?? Pulmonary Rehab Discharge Status?? Respiratory Rate: 21 br/min ? Common Emergency Awareness Tips IS [...] are strongly encouraged to quit. Please call [facility] [employer] [facility] at [phone] or [phone]) or log in to [email or web address] for referrals to smoking cessation programs. ?? The National Suicide Prevention Hotline is available 19/04 if you or someone you know needs to find a reason to keep living. By calling 9-392-781-ishBowl (4752) you'll be connected to a skilled, trained counselor at a crisis center in your area. INPATIENT DISCHARGE INSTRUCTIONS SIGNATURE PAGE SHIN RILEY Location:[facility] Registration Date and Time:10/29/2022 06:33 EST Primary Care Physician: Anne Talamantes DO, I SHIN RILEY, have received the above patient education materials/instructions and have verbalized understanding. If ambulance or transport services are being used I further acknowledge being given a choice of service. ?? If you need to contact me, please call me at this number: . Patient/Shoemaking Cutter Name: Patient/Shoemaking Cutter Signature: Relationship to Patient: Witness Name/Signature: Date: * Lee Ann Fuentes: PERFORM Event Display: Patient Education Leaflets Authored Date: [id number] Discharge Instructions for Cardiac Catheterization ?? [id number] Instrucciones de nydia para el cateterismo card??aco El cateterismo card??aco es un procedimiento invasivo que se realiza para estudiar determinados problemas del coraz??n. Estos problemas pueden afectar a las cavidades del coraz??n, las v??lvulas y los vasos sangu??neos. Se inserta enio c??nula delgada y flexible (cat??ter) en un vaso sangu??sophia de la sherif o del brazo. El cat??ter se traslada al coraz??n. El proveedor de atenci??n m??dica puede estudiar el flujo de kayla, la presi??n arterial y el ox??benitez. Puede inyectar un l??quido de contraste en la kayla. El l??quido fluye hacia el coraz??n.??Luego, el proveedor puede areli im??genes radiogr??ficas del coraz??n. A menudo, se hace enio angiograf??a coronaria jael parte del cateterismo card??aco. Se usa para evaluar las obstrucciones en las arterias que llevan kayla al coraz??n. Si se encuentra enio obstrucci??n, el proveedor puede intentar abrir la arteria. Posiblemente coloque un stent. El proveedor hablar?? con usted sobre los resultados del procedimiento. Faye todas las preguntas que tenga antes de irse. Esta hoja le ayudar?? a cuidarse en saab casa. Cuidados en el hogar ??? Pida a alg??n adulto responsable que lo lleve a saab casa despu??s del procedimiento. ??? No conduzca ni tome decisiones importantes toña, al menos, 24??horas despu??s de recibir cualquier tipo de sedaci??n o anestesia.? Janis entre seis y ocho vasos de agua en las siguientes 24??horas. [place] ayuda a expulsar el medio de contraste del cuerpo. Llame al equipo de atenci??n m??dica si tiene alg??n cambio de color en la orina. ??? T??mese la temperatura a diario durantetres a michele d??as. Si se siente fr??o y h??medo o si empieza a sudar, t??mese la temperatura de inmediato. Llame al equipo de atenci??n m??dica. ??? Solo faye actividades livianas y f??ciles durantelos pr??ximos dos a jason d??as. Pida ayuda con las tareas y los mandados mientras se recupera. Pidaa alguien lo lleve a kirill compromisos. ??? No levante nada pesado hasta que el equipo de atenci??n m??dica le diga que es seguro hacerlo. ??? Preg??ntele a saab equipo de atenci??n m??dica cu??ndo puedevolver a trabajar. A menos que saab trabajo implique levantar objetos, es posible que pueda retomar kirill actividades normales en unos dos d??as. ??? Admin??strese los medicamentos paolo jael se lo hayan indicado. No omita ninguna dosis. ??? Revise las incisiones todos los d??as para detectar se??ales deinfecci??n. Por ejemplo, enrojecimiento, hinchaz??n y secreci??n de l??quidos. Es normal que tenga un moret??n o enio protuberancia madison??os en el lugar donde se insert?? el cat??ter. No es normal que un moret??n se agrande. Informe al equipo de atenci??n m??dica al respecto. Si observa que se acumula kayla en la incisi??n, llame al equipo de atenci??n m??dica. Vaya a enio eric de emergencias si tiene un sangrado que no puede controlar proveniente de la josefina de la arteria. [place] es incluso m??s importante si rachael medicamentos que dificultan la coagulaci??n de la kayla. Por ejemplo, aspirina, clopidogrel, warfarina, apixaban y rivaroxab??n. ??? Lleve enio alimentaci??n saludable. Aseg??rese de que sea baja en grasas, yovani y colesterol. P??justin a saab equipo de atenci??n m??dica que le d?? informaci??n sobre la alimentaci??n que debe elegir. ??? Deje de fumar. Inscr??base en un programa para dejar de fumar. O p??justin ayuda al equipo de atenci??n m??dica. ??? Faye ejercicios seg??n le indique el equipo de atenci??n m??dica. Es posible que le recomienden iniciar un programa de rehabilitaci??n card??david. La rehabilitaci??n card??advid es un programa de ejercicios donde el personal de atenci??n m??dica capacitado controla saab progreso y el esfuerzo que hace saab coraz??n mientras se ejercita. Preg??ntele a saab equipo c??mo inscribirse. ??? Evite nadar o areli ba??os de ruben hasta que el equipo de atenci??n m??dica lo autorice. Puede ducharse el d??a despu??s del procedimiento. Mantenga el punto de inserci??n limpio y seco. [place] tapan que la incisi??n se moje y se infecte hasta que la piely la arteria hayan sanado. ??? Siga todas las dem??s instrucciones poscuidado que le d?? el equipo.? Atenci??n de seguimiento ??? Programe enio holly de seguimiento seg??n le indiquen. Es com??n tener enio holly de seguimiento de dos a cuatro semanas despu??s de enio angioplastia o de enio colocaci??n de stent coronario. ??? Realice enio visita anual. Permite asegurarse de que sigue olga y de que no tiene s??ntomas nuevos. ??? No espere a la holly de seguimiento si los medicamentos no funcionan o si tiene s??ntomas relacionados con el coraz??n. Llame a saab proveedor de atenci??n m??dica. ?? Cu??ndo recibir atenci??n m??dica Llame de inmediato a saab proveedor de atenci??n m??dica en cualquiera de los siguientes casos: ??? Dolor intenso o aumento del dolor, entumecimiento, sensaci??n de fr??o o color azulado en la pierna oel brazo donde estuvo el cat??ter ??? Fiebre de 100.4?F??( 38?C) o superior, o seg??n le haya indicado el proveedor de atenci??n m??dica ??? Signos de infecci??n en el lugar de la incisi??n. Estos incluyen enrojecimiento, hinchaz??n, supuraci??n o calor. ??? Sangrado, moretones o gran hinchaz??n donde se insert?? el cat??ter ??? Kayla en la orina ??? Heces negras o de consistencia similara la claude (alquitranada) ??? Cualquier tipo de sangrado inusual ??? Ritmo card??aco irregular, muy lento o acelerado ??? Mareos ?? Cu??ndo llamar al?? 911 Llame al?? 911 si presenta cualquiera de estos s??ntomas: ??? Dolor de pecho ??? Falta de aire ??? Debilidad o entumecimiento repentinos en los brazos, en las piernas o en la michele o problemas para hablar ??? El lugar de la punci??n se hincha muy r??pido ???Sangrado en el lugar de la punci??n que no disminuye con presi??n firme ?? Last Reviewed Date: 2021 ?? [id number] [employer]. Todos los derechos reservados. Esta informaci??n no pretende sustituir la atenci??n m??dica profesional. S??lo saab m??dico puede diagnosticar y tratar un problema de marina. ?? * Lee Ann Fuentes: PERFORM Event Display: Patient Education Leaflets Authored Date: [id number] Cardiac Catheterization, Bleeding or Hematoma After ?? [id number] Sangrado o hematoma despu??s de cateterismo card??aco Recientemente le hicieron un cateterismo card??aco. Le introdujeron un cat??ter en el cuerpo a george??s de un sitio de punci??n ubicado en la sherif o el brazo. Ahora usted est?? sangrando por madi sitio. La kayla puede salir del sitio en forma de goteo o a borbotones. O puede acumularse debajo de lapiel y formar un bulto (hematoma). [place] suele requerir evaluaci??n inmediata en enio eric de emergencias. Raeann aplique presi??n directa sobre el sitio y llame al?? 911 o p??justin a alguien que lo lleve a la eric de emergencias. All?? aplicar??n presi??n en el sitio para detener el sangrado. Puede que lo env??en a casa si la hemorragia se controla y usted se siente olga. Para que no vuelva a sangrar, tome ciertas precauciones en casa. Si el sangrado vuelve a comenzar, siga los consejos que aparecen a continuaci??n. Cuidados en el hogar Toña las pr??ximas 48 horas: ??? No faye ninguna actividad en??rgica. ??? No suba escaleras en lo posible ??? No levante nada que pese m??s de 2??kg (5??libras). ??? Si le hicieron la punci??n en el brazo o la mu??eca, no se acueste del lado de madi brazo. ??? Si le hicieron la punci??n en la sherif, no puje al evacuar los intestinos. ??? No se restriegue el sitio al ba??arse. Est?? olga que lo moje cuando saab proveedor de atenci??n m??dica le diga que puede hacerlo, esther no se lo frote ni masajee. No se ba??e en ruben toña??3??d??as despu??s del procedimiento. ??? No maneje en las pr??ximas 48??horas Si vuelve a sangrar, llame al 911. Siga los siguientes pasos para detener el sangrado hasta que llegue la ayuda: ??? Acu??stese boca arriba. ??? Col??quese un pa??o o compresa de gasa limpia en el sitio de la punci??n. Luego aplique presi??n firme directamente sobre la josefina. O p??justin a alguien queaplique presi??n firme con enio compresa de gasa o toalla. ??? Mantenga el brazo estirado y elevado por encima de la altura del coraz??n si la punci??n fue en el brazo o en la mu??eca. Si la punci??n fue en la sherif, faye que otra persona aplique presi??n en el sitio de la punci??n. ??? No presione con demasiada fuerza. Si lo hace, la pierna y el pie (o el brazo y la mano) no recibir??n flujo sangu??sophia y la piel que est?? debajo de las u??as puede volverse markus. La piel deber??a verse rosada,jael debajo de las u??as del otro pie. Cuando presiona (u otra persona presiona) la u??a, se volver?? markus, esther cuando deje de presionarla de volver?? rosada enio vez m??s. [place] se denomina llenado capilar . Si est?? con alguien, esta persona puede comprobarlo. ??? Si comienza a sentir los dedos de los pies, los pies, o la pierna entumecidos, con cosquilleo o fr??os, afloje la presi??n, debidoa que probablemente est?? presionando con fuerza excesiva. ??? En cuanto llegue el servicio de emergencias, ellos se ocupar??n de saab atenci??n. ?? Visita de seguimiento Asista a las citas de seguimiento con saab proveedor de atenci??n m??dica o seg??n le hayan indicado.Pida a saab proveedor de atenci??n m??dica un n??katie de contacto al cual llamar. ?? Cu??ndo llamar al?? 911 Llame al?? 911 si ocurre algo de lo siguiente: ??? Dolor o sensaci??n de opresi??n en el pecho ??? Sangrado del sitio de la punci??n ??? Sentir debilidad o que va a desmayarse ??? Dificultad para respirar ??? Un bulto (hematoma) que se agranda de manera brenda o r??pida ??? Fr??o, entumecimiento, cosquilleo o cambios en el color de la piel del brazo o la pierna en que se realiz?? la punci??n ?? Cu??ndo buscar atenci??n m??dica Llame a saab proveedor de atenci??n m??dica de inmediato ante cualquiera de las siguientes situaciones: ??? Mayor dolor, enrojecimiento, hinchaz??n o supuraci??n del sitio de la punci??n ??? N??useas ov??mitos ??? Fiebre de 100.4?F (38?C) o superior, o seg??n le indique saab proveedor ?? Last Reviewed Date: 2021 ?? [id number] [employer]. Todos los derechos reservados. Esta informaci??n no pretende sustituir la atenci??n m??dica profesional. S??lo saab m??dico puede diagnosticar y tratar un problema de marina. ?? * Lee Ann Fuentes: PERFORM Event Display: Patient Education Leaflets Authored Date: [id number] Procedural Sedation, Recovery (Adult) ?? [id number] Recuperaci??n despu??s de la sedaci??n para procedimientos (adultos) Le administraron medicamentos por v??a intravenosa para sedarlo toña el procedimiento. Es posible que le hayan dado un medicamento contra el dolor y otro para dormir. La mayor parte del efecto de estos medicamentos ya marmolejo desaparecido. Esther puede sentir somnolencia toña las pr??ximas seis a ocho horas. Cuidados en el hogar Siga las siguientes recomendaciones cuando llegue a saab casa: ??? Es importante que haya un adulto responsable a saab lado toña las pr??ximas ocho horas. Esta persona debe vigilar que saab afecci??n no empeore. ??? No janis??alcohol toña las pr??ximas 24 horas. ??? No conduzca, no opere maquinaria peligrosa ni tome decisiones importantes personales o de negoc ios??toña las siguientes 24 horas. Nota: Saba proveedor de atenci??n m??dica puede indicarle que no tome cecy??n medicamento por boca para el dolor ni para dormir en las pr??ximas 4??horas. Estos pueden reaccionar con los medicamentos que le administraron en el hospital. Podr??an causar enio respuesta mucho m??s dheeraj que lo normal. ?? Visita de seguimiento Asista a las citas de seguimiento con saab proveedor de atenci??n m??dica seg??n le hayan indicado. Programe enio visita de control con saab proveedor de atenci??n m??dica si no se siente alerta ni puede reanudar saab nivel normal de actividad en las siguientes 12??horas. ?? Cu??ndo buscar atenci??n m??dica Pida a alguien que llame a saab proveedor de atenci??n m??dica ante cualquiera de los siguientes s??ntomas: ??? Somnolencia que empeora ??? Debilidad o mareos que empeoran ??? V??mitos persistentes ???Dolor intenso o brenda luego del procedimiento, que no se dayna con los analg??sicos (en bryce de que se los hayan indicado) ??? Fiebre ??? Sarpullido nuevo ?? Cu??ndo llamar al?? 911 Pida a alguien que llame al?? 911 si presenta alguno de estos s??ntomas: ??? Falta de aire ??? Dolor de pecho ??? P??rdida del conocimiento o no pueden despertarlo ?? Last Reviewed Date: 2021 ?? [id number] [employer]. Todos los derechos reservados. Esta informaci??n no pretende sustituir la atenci??n m??dica profesional. S??lo saab m??dico puede diagnosticar y tratar un problema de marina. ?? Patient Care team information Care Team Personnel Name: Anne Talamantes DO Position: [facility] Outreach Member Role: PCP Address: Address: [address] [place] [address]- Care Team Related Persons Name: YANG CHATTERJEE Address: [address] [place] [address] Name: TRAE RILEY Address: [address] [place] [address]
--- OUTSIDE RECORDS SUMMARY | 2024-08-01 21:13 | XMS_ITS | Continuity of Care Document ---
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 Name Role Phone Anne Talamantes DO [facility] Primary Care Physician Encounter [facility] [place] Date(s): 07/21/24 - 07/24/[address] [id number]- Encounter Diagnosis Syncope, near(Final) - 07/21/24 Discharge Disposition: A-D/C Home Attending Physician: Kate CAMACHO, Darcy Torres Admitting Physician: Delfino CAMACHO, Cheryl Referring Physician: Not on Staff, Referring MD Allergies, Adverse Reactions, Alerts No Known Allergies Medications amitriptyline 50 mg oral tablet 1 tablet = 50 mg, By Mouth, Daily at bedtime Start Date: 04/21/19 Status: Ordered Compression Stockings See Instructions, # 1 pair, Maintenance, surgical, calf length 30-40 mm Hg, 04/22/19 13:35:06 EDT, Compound Start Date: 04/22/19 Status: Ordered Farxiga 10 mg oral tablet 1 tablet = 10 mg, By Mouth, Daily, # 30 tablet, 0 Refills, Maintenance, 07/21/24 20:24:00 EDT, Tablet, Partial fill upon patient request if the prescription is for a schedule II opioid drug. Start Date: 07/21/24 Status: Ordered Freestyle Lite Monitor See Instructions, [...] tablet, By Mouth, 2 times a day, Hold if SBP < 120 or HR < 60/min., # 60 tablet, Refills 0, Tot. Refills 0, Maintenance, 07/24/24 14:27:00 EDT, Do Not Route, Partial fill upon patientrequest if the prescription is for a schedule II opioid d... Start Date: 07/24/24 Stop Date: 08/23/24 Status: Ordered omeprazole 20 mg oral enteric coated capsule 1 capsule = 20 mg, By Mouth, 2 times a day Start Date: 04/21/19 Status: Ordered rosuvastatin 40 mg oral tablet 1 tablet = 40 mg, By Mouth, Daily at bedtime Start Date: 04/21/19 Status: Ordered Senna S 50 mg-187 mg oral tablet 1 tablet, By Mouth, Daily, PRN Constipation, TAKE 1 TABLET BY MOUTH AT BEDTIME Start Date: 07/21/24 Status: Ordered Vitamin D3 2000 intl units oral tablet 1 tablet = 2,000 International_Units, By Mouth, Daily in AM Start Date: 04/21/19 Status: Ordered Problem List Condition Confirmation Course Effective Dates Status [facility] Diabetes mellitus type 2 Confirmed Active Results Radiology Reports * Exam Date Time Procedure Performing Provider Status 07/21/24 2:[address] Angio Neck Dionisio Dsouza [place] (Verified) Notes: (CT Angio Neck) Reason For Exam: Aneurysm, neck vessel(s);Other: RESULT: CT Angio Neck CT Angio Head, CT Angio Neck Hx of Present Illness: Dizziness. TECHNIQUE: CT angiogram of the head and neck was performed after bolus administration of intravenous contrast. 100 mL of Isovue 300 was administered intravenously. Coronal and sagittal MIP reformatted images were obtained. Additional 3-D images were created on a separate workstation under concurrent supervision by the attending radiologist. All stenoses are measured using NASCET criteria. Weight-based protocol using automatic tube modulation was used to optimize exposure parameters. RADIATION DOSE PARAMETERS: CTDIvol Head: 47.53 mGy, DLP Head: 2016 mGy*cm. COMPARISON: Noncontrast CT head performed concurrently. FINDINGS: CTA OF THE NECK: Arch: There is a three vessel aortic arch. There is mild atherosclerotic plaque of the aortic arch,but origins of the supra aortic vessels are patent. There is mild/moderate narrowing of the left subclavian artery origin due to calcified plaque. Right carotid system: The common carotid and cervical internal carotid arteries are patent. There is calcified atherosclerotic plaque at the carotid bifurcation, but no ICA stenosis (0%) by NASCET criteria. The distal ICA is tortuous with a focal kink noted. Left carotid system: The common carotid and cervical internal carotid arteries are patent. There iscalcified atherosclerotic plaque at the carotid bifurcation, but no ICA stenosis (0%) by NASCET criteria. There is a left-dominant vertebral artery system. Right vertebral: Patent. Left vertebral: There is mild narrowing of the mid left V2 segment due to uncovertebral spurring atC4-5. Otherwise, the extracranial vertebral is normal in caliber. Other: Soft tissues and bones: No evidence of lymphadenopathy or mass. Subcentimeter thyroid nodularity, not requiring follow-up given the small size. Dialysis catheter is seen within the right anterior chest wall with tip in the right atrium based on the bottom steep tender view. Left anterior chest wall pacemaker noted. Lung apices are grossly clear. Multilevel degenerative changes are seen in the spine, most pronounced at C3-4 where there is moderate canal stenosis due to disc osteophyte and posterior ligamentous calcification. A superior central disc extrusion is also seen at this level. CTA OF THE HEAD: Anterior circulation: Calcified plaque is seen along the intracranial ICAs resulting in mild narrowing of the cavernous segments and moderate narrowing of the supraclinoid segments. The anterior cerebral arteries are patent and normal in caliber. Bilateral M1 and proximal M2 segments are patent. Posterior circulation: Calcified plaque is seen along the intradural vertebral arteries resulting in severe multifocal narrowing on the right and mild multifocal narrowing on the left. The basilar artery, superior cerebellar arteries, and posterior cerebral arteries are patent. Veins: Major dural venous sinuses are patent. Other: Soft tissues and bones: No midline shift or effacement of the basal cisterns. No space-occupying hemorrhage. No acute territorial loss of morgan-white matter differentiation. There have been lens extractions bilaterally. No significant opacification in the paranasal sinusesor mastoid air cells. Scattered dental caries in areas of periapical lucencies noted consistent with endodontal disease. IMPRESSION: 1. There is no large vessel occlusion in the [place]. 2. Severe multifocal narrowing of the nondominant intradural right vertebral artery. 3. Moderate narrowing of both supraclinoid ICAs. 4. No significant stenosis in the cervical carotids or vertebral arteries. 5. Mild to moderate narrowing of the left subclavian artery origin. WSN: [id number] Ordering Physician: Miles Henderson Dictated By: Ximena Morgan MD Dictated Date/Time: 07/21/24 4:08 pm Reviewed By: Ximena Morgan MD Signed By: Ximena Morgan MD Signed Date/Time: 07/21/24 4:08 pm Transcribed By: DACIA Transcribed Date/Time: 07/21/24 3:06 pm * Exam Date Time Procedure Performing Provider Status 07/21/24 2:[address] Angio Head Dionisio Dsouza [place] (Verified) Notes: (CT Angio Head) Reason For Exam: Neuro deficit, acute, stroke suspected;Other: RESULT: CT Angio Head CT Angio Head, CT Angio Neck Hx of Present Illness: Dizziness. TECHNIQUE: CT angiogram of the head and neck was performed after bolus administration of intravenous contrast. 100 mL of Isovue 300 was administered intravenously. Coronal and sagittal MIP reformatted images were obtained. Additional 3-D images were created on a separate workstation under concurrent supervision by the attending radiologist. All stenoses are measured using NASCET criteria. Weight-based protocol using automatic tube modulation was used to optimize exposure parameters. RADIATION DOSE PARAMETERS: CTDIvol Head: 47.53 mGy, DLP Head: 2016 mGy*cm. COMPARISON: Noncontrast CT head performed concurrently. FINDINGS: CTA OF THE NECK: Arch: There is a three vessel aortic arch. There is mild atherosclerotic plaque of the aortic arch,but origins of the supra aortic vessels are patent. There is mild/moderate narrowing of the left subclavian artery origin due to calcified plaque. Right carotid system: The common carotid and cervical internal carotid arteries are patent. There is calcified atherosclerotic plaque at the carotid bifurcation, but no ICA stenosis (0%) by NASCET criteria. The distal ICA is tortuous with a focal kink noted. Left carotid system: The common carotid and cervical internal carotid arteries are patent. There iscalcified atherosclerotic plaque at the carotid bifurcation, but no ICA stenosis (0%) by NASCET criteria. There is a left-dominant vertebral artery system. Right vertebral: Patent. Left vertebral: There is mild narrowing of the mid left V2 segment due to uncovertebral spurring atC4-5. Otherwise, the extracranial vertebral is normal in caliber. Other: Soft tissues and bones: No evidence of lymphadenopathy or mass. Subcentimeter thyroid nodularity, not requiring follow-up given the small size. Dialysis catheter is seen within the right anterior chest wall with tip in the right atrium based on the bottom steep tender view. Left anterior chest wall pacemaker noted. Lung apices are grossly clear. Multilevel degenerative changes are seen in the spine, most pronounced at C3-4 where there is moderate canal stenosis due to disc osteophyte and posterior ligamentous calcification. A superior central disc extrusion is also seen at this level. CTA OF THE HEAD: Anterior circulation: Calcified plaque is seen along the intracranial ICAs resulting in mild narrowing of the cavernous segments and moderate narrowing of the supraclinoid segments. The anterior cerebral arteries are patent and normal in caliber. Bilateral M1 and proximal M2 segments are patent. Posterior circulation: Calcified plaque is seen along the intradural vertebral arteries resulting in severe multifocal narrowing on the right and mild multifocal narrowing on the left. The basilar artery, superior cerebellar arteries, and posterior cerebral arteries are patent. Veins: Major dural venous sinuses are patent. Other: Soft tissues and bones: No midline shift or effacement of the basal cisterns. No space-occupying hemorrhage. No acute territorial loss of morgan-white matter differentiation. There have been lens extractions bilaterally. No significant opacification in the paranasal sinusesor mastoid air cells. Scattered dental caries in areas of periapical lucencies noted consistent with endodontal disease. IMPRESSION: 1. There is no large vessel occlusion in the [place]. 2. Severe multifocal narrowing of the nondominant intradural right vertebral artery. 3. Moderate narrowing of both supraclinoid ICAs. 4. No significant stenosis in the cervical carotids or vertebral arteries. 5. Mild to moderate narrowing of the left subclavian artery origin. WSN: [id number] Ordering Physician: Miles Henderson Dictated By: Ximena Morgan MD Dictated Date/Time: 07/21/24 4:08 pm Reviewed By: Ximena Morgan MD Signed By: Ximena Morgan MD Signed Date/Time: 07/21/24 4:08 pm Transcribed By: DACIA Transcribed Date/Time: 07/21/24 3:06 pm * Exam Date Time Procedure Performing Provider Status 07/21/24 2:[address] Head/Brain W/O Contrast Nohemi Dsouza; Auth (Verified) Notes: (CT Head/Brain W/O Contrast) Reason For Exam: Neuro deficit, acute, stroke suspected;Other: RESULT: CT Head/Brain W/O Contrast CT Head/Brain W/O Contrast Hx of Present Illness: Reports felt dizzy after chemo yesterday, was using the BR was trying to siton toilet and fell forward, was able to cath herself on seat. No head strike, no LOC. also c o lower abd pain. Denies N V D. Reason: Neuro deficit, acute, stroke suspected. Clinical Question(s): Hematoma Infarction. TECHNIQUE: Noncontrast head CT using axial technique and reconstructed in axial and coronal planes.Weight-based protocol using automatic tube modulation was used to optimize exposure parameters. CTDIvol Head: 45.26 mGy, DLP Head: 815 mGy*cm. COMPARISON: None. FINDINGS: BRAIN and EXTRA-AXIAL SPACES: No parenchymal hemorrhage, midline shift or mass effect. Morgan-white matter differentiation is well preserved. No acute infarct. Negative insular ribbon sign. Atherosclerotic vascular calcification ofthe carotid and vertebral arteries but negative hyperdense vessel sign. Ventricles, sulci and basilar cisterns are normal. No white matter lesions. No subarachnoid hemorrhage, subdural or epidural collections. CALVARIUM, SKULL BASE AND SOFT TISSUES: No fractures or suspicious bony lesions. The paranasal sinuses and mastoid air cells are clear. Status-post bilateral lens extraction. The extracranial soft tissues are unremarkable. IMPRESSION: No acute intracranial abnormality. I have personally reviewed the images and I agree with this report. WSN: [id number] Ordering Physician: Miles Henderson Dictated By: Keyshawn Camargo MD Dictated Date/Time: 07/21/24 4:01 pm Reviewed By: Mynor Hansen MD Signed By: Mynor Hansen MD Signed Date/Time: 07/21/24 4:06 pm Transcribed By: DACIA Transcribed Date/Time: 07/21/24 3:01 pm * Exam Date Time Procedure Performing Provider Status 07/21/24 12:53 PM Chest 2 Views Frontal and Lat Jacob Arizmendi; Auth (Verified) Notes: (Chest 2 Views Frontal and Lat) Reason For Exam: Stroke;Other: RESULT: Chest 2 Views Frontal and Lat Chest 2 Views Frontal and Lat Hx of Present Illness: Dizziness. Stroke. Question CHF. COMPARISON: 08/18/2023 FINDINGS: LINES AND TUBES: Triple-lead left subclavian pacer/AICD wires are intact. Right subclavian dialysis catheter projects in the right atrium. LUNGS AND PLEURA: Clear lungs. Normal pulmonary vascularity. No pleural effusion. No pneumothorax. HEART, MEDIASTINUM AND CODY: Heart is normal in size. Normal mediastinal and hilar contour. BONES AND SOFT TISSUES: No acute abnormality. IMPRESSION: No acute abnormality. WSN: [id number] Ordering Physician: Miles Henderson Dictated By: Jarvis Burch MD Dictated Date/Time: 07/21/24 12:58 p Reviewed By: Jarvis Burch MD Signed By: Jarvis Burch MD Signed Date/Time: 07/21/24 12:58 pm Transcribed By: DACIA Transcribed Date/Time: 07/21/24 12:55 pm Vital Signs Most recent to oldest [Reference Range]: 1 2 3 Height 155 cm (07/24/24 1:29 PM) 155 cm (07/24/24 11:21 AM) 155 cm (07/24/24 10:03 AM) Weight 68.1 kg (07/22/24 12:39 AM) 66.8 kg (07/21/24 10:07 PM) 66.8 kg (07/21/24 5:56 PM) Oxygen Saturation [94-100 %] 98 % (07/24/24 11:21 AM) 96 % (07/24/24 3:23 AM) 99 % (07/24/24 12:32 AM) Pulse Rate [55-90 bpm] 103 bpm *H* (07/24/24 11:21 AM) 96 bpm *H* (07/24/24 10:03 AM) 79 bpm (07/24/24 3:23 AM) Body Mass Index [18.5-24.99 kg/m2] 28.35 kg/m2 *H* (07/22/24 12:39 AM) 27.8 kg/m2 *H* (07/21/24 10:07 PM) 27.8 kg/m2 *H* (07/21/24 5:56 PM) Blood Pressure [90-138/55-84 mm Hg] 120/97mm Hg (07/24/24 1:29 PM) 117/57mm Hg (07/24/24 11:21 AM) 134/67mm Hg (07/24/24 10:03 AM) Respiratory Rate [16-30 br/min] 18 br/min (07/24/24 11:21 AM) 15 br/min *L* (07/24/24 10:03 AM) 18 br/min (07/24/24 3:23 AM) Temperature [96.8-100.4 DegF] 98.6 DegF (07/24/24 11:21 AM) 98.3 DegF (07/24/24 10:03 AM) 97.7 DegF (07/24/24 3:23 AM) Mode of Delivery (Oxygen) Room air (07/24/24 11:21 AM) Room air (07/24/24 3:23 AM) Room air (07/24/24 12:32 AM) Blood pressure sites Arm, right (07/24/24 1:29 PM) Arm, right (07/24/24 11:21 AM) Arm, right (07/24/24 3:23 AM) Temperature Route Oral (07/24/24 11:21 AM) Oral (07/24/24 10:03 AM) Oral (07/24/24 3:23 AM) Dry Weight 66.8 kg (07/22/24 12:39 AM) 66.8 kg (07/21/24 10:07 PM) 66.8 kg (07/21/24 5:56 PM) Weight Obtained Via Patient/family state d (07/21/24 11:25 AM) Dry Weight Obtained Via Patient/family s tated (07/21/24 11:25 AM) Admission evaluation note * Demirhan MD, Brian Landis: PERFORM, MODIFY Event Display: Admission Note Authored Date: [id number] Patient: ??JAZMINE RILEY ? Age:??58 Years?Sex:??Female?:??1965?? Chief Complaint/Reason for Consultation Hx. chemo/dialysis. From home c/o weakness, baseline able to ambulate get off of bed independently,today lethargic. Being treated for infected port in R side chest. POC 500, BP 200/90. [place] [id number] ?? 58-year-old female with past medical history of ESRD??on hemodialysis MWF,??hypertension, hyperlipidemia, IDDM, nonischemic cardiomyopathy with EF??20% (normal coronary angiogram and??10/2022 with persistent cardiomyopathy??despite??maximized GDMT),??chronic LBBB??s/p GAS PLUMBER- D??in??07/2023??BIBEMS dueto dizziness. ?? Patient reported that??she started feeling dizzy??when she stands up??after she had a chemotherapy yesterday.?She actually 1 time almost passing and she fall on her back??although she was conscious??all the time. She is supposed to have the??dialysis today??but because she was feeling dizzy??they sent her to the emergency department >??she was??unable to get dialysis session today.?She wa s asymptomatic when I saw her??although she was lying on bed.?? She reported that she has been hypertensive for a long time??her antihypertensives were discontinued due to dialysis/CKD.?She takes only metoprolol for BP.?Her blood pressure was elevated up to??210,??she was given labetalol 10 mg IV push??in the emergency department.?When I saw her her BP was up to 180/90.?Patient denieschest pain, shortness of breath,??abdominal pain, diarrhea, leg swellings, fever, chills, cough. ?? Renal has seen the patient and they had discussed the case with??her dialysis unit.?? They confirmed that she had an exit site infection and she completed 3 dose of vancomycin. Blood cultures drawn last Wednesday and are NGTD x 48 ?? ED course remarkable for BP 210/94 to 185/74, on room air saturating 97%, temperature 99.1, heart rate 97 WBC 13.9 Hemoglobin 10.6?? Sodium 129 K4.4 Bicarb 21 Glucose 388 BUN 39 Creatinine 4.9?? Iron level 66, ferritin 2539 High sensitive troponin 35> 35 TSH 0.61 Patient received labetalol 10 mg IV push x 1 Chest x-ray shows 3.8 left AICD, right subclavian dialysis catheter projects in the right atrium, no acute abnormality, no pleural effusion no significant volume overload CT head without acute intracranial abnormality CT angio head and neck shows no large vessel occlusion in the [place], severe multifocal narrowing of the nondominant intradural right vertebral artery, moderate narrowing of the both supraclinoid ICAs, mild to moderate narrowing of the left subclavian artery origin. Review of Systems None except as above Objective Vital Signs?? Temperature: 99.1 DegF (07/21/24 17:56:00) Temperature Route: Oral (07/21/24 17:56:00) Pulse Rate:??93 bpm??High (07/21/24 20:51:00) Respiratory Rate: 16 br/min (07/21/24 17:56:00) Systolic Blood Pressure:??165 mm Hg??High (07/21/24 20:51:00) Diastolic Blood Pressure: 63 mm Hg (07/21/24 20:51:00) Blood pressure sites: Arm, left (07/21/24 19:02:00) Mean Arterial Pressure: 128 mm Hg (07/21/24 17:56:00) Pulse Pressure: 96 mm Hg (07/21/24 17:56:00) Oxygen Saturation: 97 % (07/21/24 17:56:00) Mode of Delivery (Oxygen): Room air (07/21/24 17:56:00) Early Warning Score: 2 (07/21/24 20:51:55) ? Physical Exam Gen- not in acute distress,comfortably lying on bed, speaking in full sentences. HEENT- Normocephalic, Atraumatic, No pallor, icterus Neck-supple, elevated??JVD Heart-S1S2(+),??paced, no murmurs. lungs- Clear, b/l air entry, no wheezing. Abdomen-soft, nontender,nondistended,??bowel sounds present, No guarding. Extremities-Fistula??left??arm,??PICC??line on??R??arm??with clean skin,??dressed appropriately,??pulses palpable. No pedal edema. No calf tenderness. Neurological- AAO??3. No gross focal neurological deficits noted. Psychiatric-patient???s mood is stable. Assessment/Plan Diagnoses Chronic HFrEF (heart failure with reduced ejection fraction) ??(I50.22) Diabetes mellitus ??(E11.9) Dizziness ??(R42) End stage renal disease ??(N18.6) Hypertension ??(I10) Non-ischemic cardiomyopathy ??(I42.8) Stenosis of right vertebral artery ??(I65.01) Syncope, near ??(R55) ?? Assessment:??58-year-old female with past medical history of ESRD??on hemodialysis MWF,??hypertension, hyperlipidemia, IDDM, nonischemic cardiomyopathy with EF??20% (normal coronary angiogram and??10/2022 with persistent cardiomyopathy??despite??maximized GDMT),??chronic LBBB??s/p GAS PLUMBER-D??in??07/2023??BIBEMS due to dizziness. ?? End stage renal disease (N18.6):??Wednesday schedule,??renal has seen the patient??and decided bring dialysis tomorrow??and then regular schedule.?Patient had the exit site??infection and completed 3 dose of vancomycin in the??last Wednesday blood culture without growth. ?? Plan: Appreciate renal recommendations Plan for dialysis tomorrow Still makes urine,??due to elevated JVD and??hypotension will give 40 mg IV Lasix x 1 dose.?? Strict intake and output ?? Diabetes mellitus (E11.9):??Patient normally uses Lantus 35??units,??and also reports she generallyneeds 8 to 10 units sliding scale??3 times daily ?? Plan: Renal-diabetic diet POC??3 times daily with meals 10 units lispro stat stat now -fingerstick 388 Lantus 30 units at night ?? Chronic HFrEF (heart failure with reduced ejection fraction) (I50.22) ?Grouped with??Non-ischemic cardiomyopathy (I42.8),??Hypertension (I10) ? Patient had a cardiac cath??in 2022 >??nonischemic,??due to chronic LBBB and??low EF??s/p GAS PLUMBER-D ICD in 07/2023.??EKG shows atrial sensed ventricular paced rhythm,??no acute ST-T changes.??Troponin 35>??35??rules out ACS. patient denies chest pain, on room air saturating well??she has a JVD on exam??but otherwise??no significant pleural effusion or volume overload on chest x-ray.?SBP up to??210.?She supposedly received dialysis today renal has seen and recommended dialysistomorrow.? Plan: Continue with home metoprolol 50 mg twice daily Continue w Farxiga 10mg daily?? Telemetry monitoring Strict intake and output next?? Started with lisinopril 5 mg daily (due to HFrEF??and uncontrolled hypertension patient is already on dialysis) -also can discuss with??renal but??[facility]??not recommended??in the EF 20 to 25%,??patient has limited options.?? Will monitor BP ?ACEI or ARB for LVSD:??ACEI has been ordered ?? 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 Patient comes in with??hypertensive urgency, dizziness??upon standing >??denies??spinning sensation,??also missed her dialysis today.??She had received chemotherapy yesterday.?Patient also has been hyperglycemic has not received her insulin??today. Neuroexam reassuring. CT head without acute intracranial abnormality.??CT angio head and neck showsno large vessel occlusion in the [place], severe multifocal narrowing of the nondominant intradural right vertebral artery, moderate narrowing of the both supraclinoid ICAs, mild to moderatenarrowing of the left subclavian artery origin. ?? Plan: Carotid duplex ultrasound??to assess??her ICAs Orthostatic vitals check Started with antihypertensive??will try to control the blood pressure.?Also started with insulin??will manage hyperglycemia Neurochecks every 4 hours If asymptomatic can be discharged with neurology follow-up if??symptoms persist can consult neurology inpatient ?? VTE Prophylaxis:??pneumatic boots due to BP ?VTE Prophylaxis Assessment:??VTE Prophylaxis Ordered ?? Discharge Planning:??Pending clinical course ?? Ongoing Medical Necessity:??Dizziness, lightheadedness,??presyncope, hypertensive urgency ?? Code Status:??Full code ?Order Code Status:??Code Status Ordered ?? Pt is seen on 07/21 ?? I spent a total of??75 minutes in patient care that includes??reviewing the chart and medical records, speaking with the patient, examining the patient, interpreting labs/imaging/ekg, formulating anddiscussing the treatment plan, counseling the patient, placing orders, communicating with??consultants and nurses??and documenting the encounter. ?? Please note that I have used [employer] system to??transcribe??this note and it may contain unintentional errors. Please feel free to contact me for any clarification. ? Estimated Discharge Date ? Histories Allergies Allergies ?(Active and Proposed Allergies Only) NKA? (Severity: Unknown severity, Onset: Unknown) ? Past Medical History/Problem List Active Problems(1) Diabetes mellitus type 2 ? Past Surgical History No surgery history documented. ? Social History No social history documented. ? Family History No Family History documented. ? Medications Home Medications amiTRIPTYLINE (amitriptyline 50 mg oral tablet)?1?tab(s)?50?Milligram?By Mouth?Daily at bedtime Cholecalciferol (Vitamin D3 2000 intl units oral tablet)?1?tab(s)?2,000?International Unit?By Mouth?Daily in AM dapagliflozin (Farxiga 10 mg oral tablet)?1?tab(s)?10?Milligram?By Mouth?Daily Docusate-Senna (Senna S 50 mg-187 mg oral tablet)?1?tab(s)?By Mouth?Daily?as needed?Constipation?TAKE 1 TABLET BY MOUTH AT BEDTIME Durable Medical Equipment (Freestyle Lite Monitor)?See Instructions?To use 4 times/day ??Diagnosis : DM type 2 Durable Medical Equipment (Freestyle Lite Test Strips)?See Instructions?for 30?Days?to use 4 times/day Diabetes Mellitus type 2 Durable Medical Equipment (Compression Stockings)?See Instructions?surgical, calf length 30-40 mm Hg Ferrous Sulfate (FeroSul 325 mg oral tablet)?1?tab(s)?325?Milligram?By Mouth?Daily?EVERY EVENING Insulin Glargine (Lantus Solostar Pen 100 units/mL subcutaneous solution)?35?unit(s)?Subcutaneous Injection?Daily at bedtime Insulin Lispro (Humalog Kwik Pen 100 units/mL subcutaneous injection)?inject 8-20 units per sliding scale twice a day Metoprolol (metoprolol 25 mg oral tablet)?25?Milligram?1?tablet?By Mouth?2 times a day Omeprazole (omeprazole 20 mg oral enteric coated capsule)?1?capsule?20?Milligram?By Mouth?2 times a day Rosuvastatin (rosuvastatin 40 mg oral tablet)?1?tab(s)?40?Milligram?By Mouth?Daily at bedtime ? Inpatient Medications Medications (25) Active SCHEDULED: (12) Amitriptyline 25 mg Tablet (amitriptyline 25 mg oral tablet) ??50 mg, By Mouth, Daily at bedtime Dapagliflozin 10 mg Tablet (Dapagliflozin Tablet) ??10 mg, By Mouth, Daily Ferrous Sulfate 325 mg EC Tablet (ferrous sulfate 325 mg oral tablet) ??325 mg, By Mouth, Daily Furosemide Inj (Lasix ??Inj) ??40 mg 4 mL, IV Push Slowly, Once Insulin Glargine 100 units/mL Inj (Insulin Glargine Inj) ??30 units 0.3 mL, Subcutaneous Injection,Daily at bedtime Insulin Lispro 100 units/mL Inj (Insulin LISPRO Sliding Scale) ??2-10 units, Subcutaneous Injection, 3 times a day before meals Insulin Lispro 100 units/mL Inj (Insulin LISPRO Inj) ??10 units 0.1 mL, Subcutaneous Injection, Once Lisinopril 5 mg Tablet (lisinopril 5 mg oral tablet) ??5 mg, By Mouth, Daily Metoprolol 50 mg Tablet (metoprolol 50 mg oral tablet) ??50 mg, By Mouth, 2 times a day NaCl 0.9% Flush 3ml (NaCL 0.9% Flush) ??3 mL, IV Push, Every 8 hours Pantoprazole 20 mg EC Tablet (pantoprazole 20 mg oral delayed release tablet) ??20 mg, By Mouth, 2 times a day Rosuvastatin 20 mg Tablet (Crestor 20 mg oral tablet) ??40 mg, By Mouth, Daily at bedtime CONTINUOUS: (0) PRN: (13) Acetaminophen 325 mg Tablet (Acetaminophen Tablet) ??650 mg, By Mouth, Every 4 hours Dextromethorphan-Guaifenesin 20 mg-200 mg/10 mL Liqu UD (Robitussin DM Liquid) ??10 mL, By Mouth, Every 4 hours Dextrose Inj Syringe (Dextrose 50% Inj Syringe (25Gm)) ??12.5 Gm, IV Push Slowly, Every 20 minutes Dextrose Inj Syringe (Dextrose 50% Inj Syringe (25Gm)) ??25 Gm, IV Push Slowly, Every 15 minutes Docusate Sodium 100 mg Capsule (Docusate Sodium Capsule) ??100 mg 1 capsule, By Mouth, 2 times a day Glucagon 1 mg Inj (Glucagon Inj) ??1 mg, Intramuscular, Once Glucose 40% Gel (15 Gm) (Glucose Gel) ??15 Gm, By Mouth, Every 20 minutes Glucose 40% Gel (15 Gm) (Glucose Gel) ??30 Gm, By Mouth, Every 20 minutes Melatonin 3 mg Tablet (Melatonin Tablet) ??3 mg, By Mouth, Daily at bedtime NaCl 0.9% Flush 3ml (NaCL 0.9% Flush) ??3 mL, IV Push, Every 8 hours Polyethylene Glycol 17 Gm Powder (MiraLax Powder) ??17 Gm 1 pack/packet, By Mouth, Daily Senna Tablet ??8.6 mg 1 tablet, By Mouth, 2 times a day Simethicone 80 mg Chewable Tablet (Simethicone Tablet) ??80 mg, Chew, 3 times a day ? Results Recent Labs BLOOD COUNT & DIFF WBC 13.9 k/mm3 (High)?? 07/21/2024 13:40 RBC 3.38 m/mm3 (Low)?? 07/21/2024 13:40 Hgb 10.6 Gm/dL (Low)?? 07/21/2024 13:40 Hct 31.1 % (Low)?? 07/21/2024 13:40 MCV 92.0 femtoliters ()?? 07/21/2024 13:40 MCH 31.4 pg ()?? 07/21/2024 13:40 MCHC 34.1 Gm/dL ()?? 07/21/2024 13:40 Platelet Count 219 k/mm3 ()?? 07/21/2024 13:40 RDW-SD 49.9 femtoliters (High)?? 07/21/2024 13:40 MPV 10.1 femtoliters ()?? 07/21/2024 13:40 Nucleated RBC (Automated) 0.0 #/100 WBC'S ()?? 07/21/2024 13:40 Abs. NRBC 0.0 k/mm3 ()?? 07/21/2024 13:40 Abs. Neut 12.2 k/mm3 (High)?? 07/21/2024 13:40 Abs. Lymph 0.9 k/mm3 ()?? 07/21/2024 13:40 Abs. Brule 0.7 k/mm3 ()?? 07/21/2024 13:40 Abs. Eo 0.0 k/mm3 ()?? 07/21/2024 13:40 Abs. Baso 0.0 k/mm3 ()?? 07/21/2024 13:40 Neut % 87.7 % (High)?? 07/21/2024 13:40 Lymph % 6.8 % (Low)?? 07/21/2024 13:40 Brule % 5.1 % ()?? 07/21/2024 13:40 Eos % 0.0 % ()?? 07/21/2024 13:40 Baso % 0.1 % ()?? 07/21/2024 13:40 Imm Gran 0.3 % ()?? 07/21/2024 13:40 Abs. Imm Gran 0.0 k/mm3 ()?? 07/21/2024 13:40 ?? CARDIAC High Sensitivity Troponin (HSTnT) 35 ng/L (High)?? 07/21/2024 16:16 ?? CHEM GENERAL Sodium 129 mmol/L (Low)?? 07/21/2024 13:40 Potassium 4.4 mmol/L ()?? 07/21/2024 13:40 Chloride 94 mmol/L (Low)?? 07/21/2024 13:40 Bicarbonate Level 21 mmol/L (Low)?? 07/21/2024 13:40 Anion Gap 14 ()?? 07/21/2024 13:40 Glucose Level 388 mg/dL (High)?? 07/21/2024 13:40 BUN 39 mg/dL (High)?? 07/21/2024 13:40 Creatinine-Blood 4.98 mg/dL (High)?? 07/21/2024 13:40 Estimated GFR Creatinine 9 ML/MIN/1.73 M2 ()?? 07/21/2024 13:40 Calcium 9.7 mg/dL ()?? 07/21/2024 13:40 Calcium, Ionized pH Corrected 1.28 mmol/L ()?? 07/21/2024 13:40 Phosphorus 3.3 mg/dL ()?? 07/21/2024 16:16 Magnesium 2.0 mg/dL ()?? 07/21/2024 13:40 AST (SGOT) 14 units/L ()?? 07/21/2024 13:40 Iron Level 66 mcg/dL ()?? 07/21/2024 16:16 Iron Binding Capacity, Unsaturated 91 mcg/dL (Low)?? 07/21/2024 16:16 Iron Binding Capacity, Estimated Total 157 mcg/dL ()?? 07/21/2024 16:16 % Iron Saturation 42 % ()?? 07/21/2024 16:16 Ferritin Level 2539 ng/mL (High)?? 07/21/2024 16:16 ?? COAG INR 1.0 ()?? 07/21/2024 13:40 Protime (PT) 10.3 seconds ()?? 07/21/2024 13:40 APTT 26.4 seconds ()?? 07/21/2024 13:40 ?? ENDOCRINE/TUMOR MARKER TSH 0.61 uIU/mL ()?? 07/21/2024 13:40 PTH, Intact 148 pg/mL (High)?? 07/21/2024 13:40 ?? URINE OTHER Est Creatinine Clearance 9.08 mL/min ()?? 07/21/2024 14:23 ?? VIROLOGY COVID-19 by RT-PCR NEGATIVE ()?? 07/21/2024 12:46 ? Abnormal Labs ?? BLOOD COUNT & DIFF Abs. Imm Gran?0.0 k/mm3 ()?07/21/2024 13:40 Abs. NRBC?0.0 k/mm3 ()?07/21/2024 13:40 Abs. Neut?12.2 k/mm3 (High)?07/21/2024 13:40 Hct?31.1 % (Low)?07/21/2024 13:40 Hgb?10.6 Gm/dL (Low)?07/21/2024 13:40 Imm Gran?0.3 % ()?07/21/2024 13:40 Lymph %?6.8 % (Low)?07/21/2024 13:40 Neut %?87.7 % (High)?07/21/2024 13:40 Nucleated RBC (Automated)?0.0 #/100 WBC'S ()?07/21/2024 13:40 RBC?3.38 m/mm3 (Low)?07/21/2024 13:40 RDW-SD?49.9 femtoliters (High)?07/21/2024 13:40 WBC?13.9 k/mm3 (High)?07/21/2024 13:40 ?? CARDIAC High Sensitivity Troponin (HSTnT)?35 ng/L (High) ??07/21/2024 16:16 ?? CHEM GENERAL BUN?39 mg/dL (High)?07/21/2024 13:40 Bicarbonate Level?21 mmol/L (Low)?07/21/2024 13:40 Chloride?94 mmol/L (Low)?07/21/2024 13:40 Creatinine-Blood?4.98 mg/dL (High)?07/21/2024 13:40 Estimated GFR Creatinine?9 ML/MIN/1.73 M2 ()?07/21/2024 13:40 Ferritin Level?2539 ng/mL (High)?07/21/2024 16:16 Glucose Level?388 mg/dL (High)?07/21/2024 13:40 Iron Binding Capacity, Unsaturated?91 mcg/dL (Low) ?07/21/2024 16:16 Sodium?129 mmol/L (Low)?07/21/2024 13:40 ?? ENDOCRINE/TUMOR MARKER PTH, Intact?148 pg/mL (High)?07/21/2024 13:40 ?? VIROLOGY COVID-19 by RT-PCR?NEGATIVE ()?07/21/2024 12:46 ?? Note: Critical results are displayed in red. ? Urinalysis Est Creatinine Clearance: 9.08 mL/min (14:23) ?? Blood Gases?? No qualifying data available. ? EKG study * Event Display: ECG 12-Lead Authored Date: Please click on pdf link to open report * Event Display: ECG 12-Lead Authored Date: Ventricular Rate: 95 BPM Atrial Rate: 95 BPM P-R Interval: 142 ms QRS Duration: 122 ms Q-T Interval: 380 ms QTC Calculation(Bazett): 477 ms P [place]: 69 degrees R [place]: -21 degrees T [place]: 132 degrees Atrial-sensed ventricular-paced rhythm Abnormal ECG When compared with ECG of 18-AUG-2023 10:21, Vent. rate has increased BY 16 BPM Confirmed by CONNIE SMITH ([id number]) on 07/21/2024 2:21:05 PM [place]: CONNIE SMITH Cardiology * Event Display: Cardiac Rhythm Strips Authored Date: * Event Display: Cardiac Rhythm Strips Authored Date: * Event Display: Cardiac Rhythm Strips Authored Date: Hospital Progress note * Miriam Murphy RN: PERFORM, SIGN, VERIFY Event Display: Progress Note Hospital Authored Date: [id number] Patient: JAZMINE RILEY Age: 58 years Sex: Female : 1965 Associated Diagnoses: None Author: Miriam Murphy RN Findings Narrative/Incidental HD SBAR/REPORT Unit aware patient is returning to unit : y Verbal necessary per protocol: y NAME: Soo 3.5 hour hemodialysis 3 K bath Access: Right chest perm No signs/symptoms of infection Alteplase dwelling in perm for poor flows 700 milliliters pulled -7.9 % blood volume change Post HD Vital signs documented in flow sheet . * Ashley Tellez: PERFORM Event Display: Progress Note Hospital Authored Date: [id number] Patient: ??JAZMINE RILEY ? Age:??58 Years?Sex:??Female?:??1965?? Subjective Seen at HD this morning, catheter working poorly despite multiple line reversals, only able to run at 200 BFR Minimal ultrafiltration given symptomatic orthostasis?? Review of Systems Negative except as mentioned above?? Objective Measurements?? Height: 155 cm (07/24/24) Weight: 68.1 kg (07/22/24) Dry Weight: 66.8 kg (07/22/24) Body Mass Index:??28.35 kg/m2??High (07/22/24) ? Vital Signs?? Temperature: 98.6 DegF (07/24/24 11:21:00) Temperature Route: Oral (07/24/24 11:21:00) Pulse Rate:??103 bpm??High (07/24/24 11:21:00) Pulse Rate, Lyin bpm (07/24/24 11:21:00) Systolic Blood Pressure, Lyin mm Hg (07/24/24 11:21:00) Diastolic Blood Pressure, Lyin mm Hg (07/24/24 11:21:00) Pulse Rate, Sittin bpm (07/24/24 11:21:00) Systolic Blood Pressure, Sittin mm Hg (07/24/24 11:21:00) Diastolic Blood Pressure, Sittin mm Hg (07/24/24 11:21:00) Respiratory Rate: 18 br/min (07/24/24 11:21:00) Systolic Blood Pressure: 120 mm Hg (07/24/24 13:29:00) Diastolic Blood Pressure:??97 mm Hg??High (07/24/24 13:29:00) Blood pressure sites: Arm, right (07/24/24 13:29:00) Mean Arterial Pressure: 105 mm Hg (07/24/24 13:29:00) Pulse Pressure: 23 mm Hg (07/24/24 13:29:00) Oxygen Saturation: 98 % (07/24/24 11:21:00) Mode of Delivery (Oxygen): Room air (07/24/24 11:21:00) Early Warning Score: 2 (07/24/24 13:29:45) ? Intake/Output? 07/21 11:05 07/24 07:00 07/23 07:00 07/22 07:00 07/21 07:00 ?? 07/24 13:58 07/24 13:58 07/24 06:59 07/23 06:59 07/22 06:59 Intake ? 1502 ?182 ?360 ?960 ?0 Output ? 3350 ?0 ?250 ? 2500 ?600 Net Total ?-1848 ?182 ?110 ?-1540 ? -600 ? Physical Exam General: No acute distress, lying in bed receiving HD?? HEENT: Mucous membranes moist CV: Regular rate and rhythm.?? Respiratory: All myrick clear to auscultation bilaterally. No wheezes, rales, rhonchi Extremities: No lower extremity edema. [facility] PermCat Neuro: AAO x3.?? _ Inpatient Medications Medications (24) Active SCHEDULED: (10) Amitriptyline 25 mg Tablet (amitriptyline 25 mg oral tablet) ??50 mg, By Mouth, Daily at bedtime Dapagliflozin 10 mg Tablet (Dapagliflozin Tablet) ??10 mg, By Mouth, Daily Insulin Glargine 100 units/mL Inj (Insulin Glargine Inj) ??30 units 0.3 mL, Subcutaneous Injection,Daily at bedtime Insulin Lispro 100 units/mL Inj (Insulin LISPRO Sliding Scale) ??2-10 units, Subcutaneous Injection, 3 times a day before meals Lisinopril 5 mg Tablet (lisinopril 5 mg oral tablet) ??5 mg, By Mouth, Daily Metoprolol 50 mg Tablet (metoprolol 50 mg oral tablet) ??50 mg, By Mouth, 2 times a day NaCL 0.9% Flush 10ml (NaCL 0.9% Flush) ??10 mL, IV Push, Daily NaCl 0.9% Flush 3ml (NaCL 0.9% Flush) ??3 mL, IV Push, Every 8 hours Pantoprazole 20 mg EC Tablet (pantoprazole 20 mg oral delayed release tablet) ??20 mg, By Mouth, 2 times a day Rosuvastatin 20 mg Tablet (Crestor 20 mg oral tablet) ??40 mg, By Mouth, Daily at bedtime CONTINUOUS: (0) PRN: (14) Acetaminophen 325 mg Tablet (Acetaminophen Tablet) ??650 mg, By Mouth, Every 4 hours Dextromethorphan-Guaifenesin 20 mg-200 mg/10 mL Liqu UD (Robitussin DM Liquid) ??10 mL, By Mouth, Every 4 hours Dextrose Inj Syringe (Dextrose 50% Inj Syringe (25Gm)) ??12.5 Gm, IV Push Slowly, Every 20 minutes Dextrose Inj Syringe (Dextrose 50% Inj Syringe (25Gm)) ??25 Gm, IV Push Slowly, Every 15 minutes Docusate Sodium 100 mg Capsule (Docusate Sodium Capsule) ??100 mg 1 capsule, By Mouth, 2 times a day Glucagon 1 mg Inj (Glucagon Inj) ??1 mg, Intramuscular, Once Glucose 40% Gel (15 Gm) (Glucose Gel) ??15 Gm, By Mouth, Every 20 minutes Glucose 40% Gel (15 Gm) (Glucose Gel) ??30 Gm, By Mouth, Every 20 minutes Melatonin 3 mg Tablet (Melatonin Tablet) ??3 mg, By Mouth, Daily at bedtime NaCL 0.9% Flush 10ml (NaCL 0.9% Flush) ??10 mL, IV Push, Every hour NaCl 0.9% Flush 3ml (NaCL 0.9% Flush) ??3 mL, IV Push, Every 8 hours Polyethylene Glycol 17 Gm Powder (MiraLax Powder) ??17 Gm 1 pack/packet, By Mouth, Daily Senna Tablet ??8.6 mg 1 tablet, By Mouth, 2 times a day Simethicone 80 mg Chewable Tablet (Simethicone Tablet) ??80 mg, Chew, 3 times a day ? Results Recent Labs BLOOD COUNT & DIFF WBC 9.0 k/mm3 ()?? 07/24/2024 00:39 RBC 3.59 m/mm3 (Low)?? 07/24/2024 00:39 Hgb 11.1 Gm/dL (Low)?? 07/24/2024 00:39 Hct 34.2 % (Low)?? 07/24/2024 00:39 MCV 95.3 femtoliters ()?? 07/24/2024 00:39 MCH 30.9 pg ()?? 07/24/2024 00:39 MCHC 32.5 Gm/dL (Low)?? 07/24/2024 00:39 Platelet Count 222 k/mm3 ()?? 07/24/2024 00:39 RDW-SD 51.4 femtoliters (High)?? 07/24/2024 00:39 MPV 10.0 femtoliters ()?? 07/24/2024 00:39 Nucleated RBC (Automated) 0.0 #/100 WBC'S ()?? 07/24/2024 00:39 Abs. NRBC 0.0 k/mm3 ()?? 07/24/2024 00:39 ?? CHEM GENERAL Sodium 134 mmol/L ()?? 07/24/2024 00:39 Potassium 4.0 mmol/L ()?? 07/24/2024 00:39 Chloride 98 mmol/L ()?? 07/24/2024 00:39 Bicarbonate Level 20 mmol/L (Low)?? 07/24/2024 00:39 Anion Gap 16 ()?? 07/24/2024 00:39 Glucose, POC 122 mg/dL (High)?? 07/24/2024 11:27 BUN 46 mg/dL (High)?? 07/24/2024 00:39 Creatinine-Blood 6.06 mg/dL (High)?? 07/24/2024 00:39 Estimated GFR Creatinine 7 ML/MIN/1.73 M2 ()?? 07/24/2024 00:39 Phosphorus 5.0 mg/dL (High)?? 07/24/2024 00:39 Magnesium 2.1 mg/dL ()?? 07/24/2024 00:39 ?? URINE OTHER Est Creatinine Clearance 7.46 mL/min ()?? 07/24/2024 01:26 ? Assessment/Plan Assessment:??Jazmine Riley is a??53-year-old female with past medical history of HFrEF (20%), T2DM, HTN, ESRD on HD MWF, bladder cancer currently undergoing chemo, who??presented to the ED on 07/21 with dizziness. ?? 1. ESRD Dialyzes MWF at [facility] via [facility], follows with Dr. Martinez Recently finished treatment??for line exit site infection with vancomycin 500mg??IV x 3 doses Blood cultures drawn 07/14 negative for 48 hours per outpatient dialysis unit ?? 2. HTN / Volume Currently on metoprolol 50 mg BID and lisinopril 5 mg daily?? Orthostasis with SBP 147 --> 116 on 07/23, improved today ?? 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 4. Mineral Bone Disease?? Phos 5.0 PTH 148 (07/21) ?? Recommendations:?? - HD on MWF schedule, will alteplase catheter after HD today - Continue metoprolol 50mg BID and lisinopril 5mg daily - No need for binders at this time ?? Will continue to follow ?? Ashley Tapia PA-C [facility]?? Discussed with Dr. Box? * Rosio Chan RN: PERFORM, SIGN, VERIFY, MODIFY, SIGN Event Display: Progress Note Hospital Authored Date: Patient: JAZMINE RILEY Age: 58 years Sex: Female : 1965 Associated Diagnoses: None Author: Rosio Chan RN Findings Problem Related to Alteration in Cardiac Function (new) : Alteration in Cardiac Function/new 07/24/2024 12:00 EDT Alteration in Cardiac Status Related to Syncope Goals & Outcomes, Cardiac Status Pt will resume/maintain adequate cardiac output, Pt will resume/maintain adequate hemodynamic status, Pt will resume/maintain adequate respiratory function, Pt will resume/maintain intact neuro function, Pt will maintain adequate GI/ function appropriate for pt, Pt will not experience physical injury Cardiac Interventions Implemented Assess/monitor cardiac status, Assess/monitor neuro status, Assess/monitor respiratory status BH Goals/Interventions, Cardiac Yes Cardiac, Problem Start 07/22/2024 5:44 Reviewed Plan with, Cardiac Status Patient Patient Progression, Cardiac Status Patient progressing according to plan . Nursing Data Cardiac Data. : Cardiac Data. 07/24/2024 9:00 EDT Heart Sounds S1, S2 Cardiac Rhythm Paced cardiac monitor technician Yes Cardiovascular WNL except . Gastrointestinal Data. : Gastrointestinal Data. 07/24/2024 9:00 EDT Last Bowel Movement 07/20/2024 GI WNL . Genitourinary Data. : Genitourinary Data. 07/24/2024 9:00 EDT Genitourinary Symptoms Oliguria WNL except . Integumentary Data. : Integumentary Data. 07/24/2024 12:30 EDT Integumentary WNL . Respiratory/Pulmonary Data. : Respiratory/Pulmonary Data. 07/24/2024 12:20 EDT Respiratory Treatment(s) Cough and deep breathe . Evaluation Pt A&Ox4. primarily Mauritanian speaking but able to make needs known. V paced on tele. on room air. pt came back from dialysis. BP in the lower side. Meds held for bp per MD . fluids encouraged. others positive. pt awaiting carotid Duplex testing . safety maintained.call hope with in reach. . Consult note * Isabel ARGUELLO, Cyrus Bell: PERFORM Event Display: Consultation Note Authored Date: [id number] Patient: ??JAZMINE RILEY ? Age:??58 Years?Sex:??Female?:??1965?? Chief Complaint/Reason for Consultation ESRD History of Present Illness Jazmine Riley is a??53-year-old female with past medical history of T2DM, HTN, ESRD on HD MWF, bladder cancer currently undergoing chemo,??hyperlipidemia,??and??GERD presented to the ED on 07/21 with dizziness. ?? Patient reports feeling dizzy which started after chemo yesterday. Patient states she was on the bedside commode today when she went to stand up and felt very dizzy and almost passed out.??She had a full treatment of dialysis on Wednesday??and??follows with Dr. Martinez. ?? In the ED, BP initially 210/84 which improved to 155/140 during my visit, afebrile, saturating well on room air. Labs notable for WBC 13.9, baseline anemia, glucose 388, BMP otherwise within normal limits for ESRD (not hyponatremic when corrected for hyperglycemia). Chest x-ray with no acute abno rmality. ?? On my assessment, patient is resting comfortably in bed and??saturating well on??room air. She reports feeling dizzy but otherwise has no complaints. Denies headache. States he had a full treatment of dialysis on Wednesday. Denies shortness of breath or peripheral edema. Patient states she was recently treated for a line infection. I spoke with her dialysis unit who confirmed she had an exit site infection and completed 3 doses of vancomycin. Blood cultures drawn last Wednesday and are NGTD x 48 hours. Review of Systems Constitutional: No weight loss, fever, chills, weakness or fatigue. HEENT: No visual loss, blurred vision, double vision or yellow sclera. No hearing loss, sneezing, congestion, runny nose or sore throat. Skin: No rash or itching. Cardiovascular: No chest pain, chest pressure or chest discomfort. No palpitations or pedal edema. Respiratory: No shortness of breath, cough or sputum production. Gastrointestinal: Negative for nausea, vomiting & diarrhea. No abdominal pain or blood in stool. Genitourinary: No burning micturition. No urinary frequency or incontinence. Neurologic: ++ dizziness.??No headache, syncope, unilateral weakness, ataxia Musculoskeletal: No muscle pain, back pain, joint pain or stiffness. Hematologic: No bleeding or bruising. Lymphatics: No enlarged lymph nodes. Psychiatric: No depression or anxiety. Endocrine: No reports of sweating. No cold or heat intolerance. No polyuria or polydipsia. ? Objective Vital Signs?? Temperature: 98.4 DegF (07/21/24 11:25:00) Temperature Route: Oral (07/21/24:25:00) Pulse Rate:??98 bpm??High (07/21/24 11:25:00) Respiratory Rate:??13 br/min??Low (07/21/24 11:25:00) Systolic Blood Pressure:??210 mm Hg??High (07/21/24 11:25:00) Diastolic Blood Pressure:??94 mm Hg??High (07/21/24 11:25:00) Blood pressure sites: Arm, left (07/21/24 11:25:00) Mean Arterial Pressure: 133 mm Hg (07/21/24 11:25:00) Pulse Pressure: 116 mm Hg (07/21/24 11:25:00) Oxygen Saturation: 100 % (07/21/24 11:25:00) Mode of Delivery (Oxygen): Room air (07/21/24:25:00) ? Intake/Output? No Data Available ? Physical Exam ?General: No acute distress ?HEENT: Mucous membranes moist ?CV: Regular rate and rhythm ?Respiratory: CTAB ?Abdominal: Soft ?Extremities: No peripheral edema ?Neuro: AAO x3 ?Skin: No rashes Assessment/Plan Assessment:??Jazmine Riley is a??53-year-old female with past medical history of T2DM, HTN, ESRDon HD MWF, bladder cancer currently undergoing chemo,??hyperlipidemia,??and??GERD presented to the ED on 07/21 with dizziness. ?? 1. ESRD Dialyzes MWF at [facility] via [facility], follows with Dr. Martinez Recently finished treatment??for line exit site infection with Vancomycin 500mg??IV x 3 doses Blood cultures drawn last Saturday 07/14 negative for 48 hours per outpatient dialysis unit ?? 2. HTN / Volume Chronically takes metoprolol 50mg daily Presented with BP 210/94, improved to 155/140 (not recorded in [facility], but personally saw on the monitor) ?? 3. Nephrogenic Anemia Hgb at goal for ESRD No recent iron studies available ?? 4. Secondary Hyperparathyroidism / MBD Ionized Ca 1.28 (07/21) No recent phos or PTH available ?? Plan - Due to high inpatient census today and no urgent need for dialysis, patient will be dialyzed overnight or 1st shift tomorrow morning - Then continue HD on regular MWF schedule - Resume home metoprolol 50mg daily - Add on iron studies, phos, and PTH ordered ?Thank you for the courtesy of this consult, [facility] will continue monitoring the patient along with you. Please do not hesitate to call us with any further questions. ?Cyrus Hall PA-C ?[facility] ?? Discussed with Dr. Dockery Histories Allergies Allergies ?(Active and Proposed Allergies Only) NKA? (Severity: Unknown severity, Onset: Unknown) ? Past Medical History/Problem List Active Problems(2) Diabetes mellitus type 2 Obese class I ? Past Surgical History No surgery history documented. ? Social History No social history documented. ? Family History No Family History documented. ? Medications Home Medications amiTRIPTYLINE (amitriptyline 50 mg oral tablet)?1?tab(s)?50?Milligram?By Mouth?Daily at bedtime Aspirin?81?Milligram?By Mouth?Daily Cholecalciferol (Vitamin D3 2000 intl units oral tablet)?1?tab(s)?2,000?International Unit?By Mouth?Daily in AM dulaglutide (Trulicity Pen 1.5 mg/0.5 mL subcutaneous solution)?1.5?Milligram?SubcutaneousInfusion?Every Wednesday?for 90?Days Durable Medical Equipment (Freestyle Lite Monitor)?See Instructions?To use 4 times/day ??Diagnosis : DM type 2 Durable Medical Equipment (Freestyle Lite Test Strips)?See Instructions?for 30?Days?to use 4 times/day Diabetes Mellitus type 2 Durable Medical Equipment (Compression Stockings)?See Instructions?surgical, calf length 30-40 mm Hg Ferrous Sulfate (FeroSul 325 mg oral tablet)?1?tab(s)?325?Milligram?By Mouth?Daily?EVERY EVENING Insulin Glargine (Lantus Solostar Pen 100 units/mL subcutaneous solution)?35?unit(s)?Subcutaneous Injection?Daily at bedtime Insulin Lispro (Humalog Kwik Pen 100 units/mL subcutaneous injection)?inject 8-20 units per sliding scale twice a day Metoprolol (metoprolol 25 mg oral tablet)?25?Milligram?1?tablet?By Mouth?2 times a day Omeprazole (omeprazole 20 mg oral enteric coated capsule)?1?capsule?20?Milligram?By Mouth?2 times a day Rosuvastatin (rosuvastatin 40 mg oral tablet)?1?tab(s)?40?Milligram?By Mouth?Daily at bedtime sacubitril-valsartan (Entresto 24 mg-26 mg oral tablet)?1?tab(s)?By Mouth?2 times a day ? Results Recent Labs BLOOD COUNT & DIFF WBC 13.9 k/mm3 (High)?? 07/21/2024 13:40 RBC 3.38 m/mm3 (Low)?? 07/21/2024 13:40 Hgb 10.6 Gm/dL (Low)?? 07/21/2024 13:40 Hct 31.1 % (Low)?? 07/21/2024 13:40 MCV 92.0 femtoliters ()?? 07/21/2024 13:40 MCH 31.4 pg ()?? 07/21/2024 13:40 MCHC 34.1 Gm/dL ()?? 07/21/2024 13:40 Platelet Count 219 k/mm3 ()?? 07/21/2024 13:40 RDW-SD 49.9 femtoliters (High)?? 07/21/2024 13:40 MPV 10.1 femtoliters ()?? 07/21/2024 13:40 Nucleated RBC (Automated) 0.0 #/100 WBC'S ()?? 07/21/2024 13:40 Abs. NRBC 0.0 k/mm3 ()?? 07/21/2024 13:40 Abs. Neut 12.2 k/mm3 (High)?? 07/21/2024 13:40 Abs. Lymph 0.9 k/mm3 ()?? 07/21/2024 13:40 Abs. Brule 0.7 k/mm3 ()?? 07/21/2024 13:40 Abs. Eo 0.0 k/mm3 ()?? 07/21/2024 13:40 Abs. Baso 0.0 k/mm3 ()?? 07/21/2024 13:40 Neut % 87.7 % (High)?? 07/21/2024 13:40 Lymph % 6.8 % (Low)?? 07/21/2024 13:40 Brule % 5.1 % ()?? 07/21/2024 13:40 Eos % 0.0 % ()?? 07/21/2024 13:40 Baso % 0.1 % ()?? 07/21/2024 13:40 Imm Gran 0.3 % ()?? 07/21/2024 13:40 Abs. Imm Gran 0.0 k/mm3 ()?? 07/21/2024 13:40 ?? CARDIAC High Sensitivity Troponin (HSTnT) 35 ng/L (High)?? 07/21/2024 13:40 ?? CHEM GENERAL Sodium 129 mmol/L (Low)?? 07/21/2024 13:40 Potassium 4.4 mmol/L ()?? 07/21/2024 13:40 Chloride 94 mmol/L (Low)?? 07/21/2024 13:40 Bicarbonate Level 21 mmol/L (Low)?? 07/21/2024 13:40 Anion Gap 14 ()?? 07/21/2024 13:40 Glucose Level 388 mg/dL (High)?? 07/21/2024 13:40 BUN 39 mg/dL (High)?? 07/21/2024 13:40 Creatinine-Blood 4.98 mg/dL (High)?? 07/21/2024 13:40 Estimated GFR Creatinine 9 ML/MIN/1.73 M2 ()?? 07/21/2024 13:40 Calcium 9.7 mg/dL ()?? 07/21/2024 13:40 Calcium, Ionized pH Corrected 1.28 mmol/L ()?? 07/21/2024 13:40 Magnesium 2.0 mg/dL ()?? 07/21/2024 13:40 AST (SGOT) 14 units/L ()?? 07/21/2024 13:40 ?? COAG INR 1.0 ()?? 07/21/2024 13:40 Protime (PT) 10.3 seconds ()?? 07/21/2024 13:40 APTT 26.4 seconds ()?? 07/21/2024 13:40 ?? ENDOCRINE/TUMOR MARKER TSH 0.61 uIU/mL ()?? 07/21/2024 13:40 ?? URINE OTHER Est Creatinine Clearance 9.08 mL/min ()?? 07/21/2024 14:23 ?? VIROLOGY COVID-19 by RT-PCR NEGATIVE ()?? 07/21/2024 12:46 ? CBC, CBC w/Diff?? CBC?? Differential?? WBC:??13.9 k/mm3??High (13:40) Abs. Neut:??12.2 k/mm3??High (13:40) RBC:??3.38 m/mm3??Low (13:40) Abs. Lymph: 0.9 k/mm3 (13:40) Hct:??31.1 %??Low (13:40) Abs. Brule: 0.7 k/mm3 (13:40) RDW-SD:??49.9 femtoliters??High (13:40) Abs. Eo: 0 k/mm3 (13:40) Nucleated RBC (Automated): 0 #/100 WBC'S (13:40) Abs. Baso: 0 k/mm3 (13:40) Abs. NRBC: 0 k/mm3 (13:40) Neut %:??87.7 %??High (13:40) ?? Lymph %:??6.8 %??Low (13:40) ?? Brule %: 5.1 % (13:40) ?? Eos %: 0 % (:40) ?? Baso %: 0.1 % (13:40) ?? Imm Gran: 0.3 % (13:40) ?? Abs. Imm Gran: 0 k/mm3 (13:40) ? BMP, Mg, and Phos Anion Gap: 14 (13:40) Bicarbonate Level:??21 mmol/L??Low (13:40) BUN:??39 mg/dL??High (13:40) Calcium: 9.7 mg/dL (13:40) Calcium, Ionized pH Corrected: 1.28 mmol/L (13:40) Chloride:??94 mmol/L??Low (13:40) Creatinine-Blood:??4.98 mg/dL??High (13:40) Estimated GFR Creatinine: 9 ML/MIN/1.73 M2 (13:40) Glucose Level:??388 mg/dL??High (13:40) Magnesium: 2 mg/dL (13:40) Potassium: 4.4 mmol/L (13:40) Sodium:??129 mmol/L??Low (13:40) ?? Urinalysis Est Creatinine Clearance: 9.08 mL/min (14:23) ?? Microbiology ?? COVID-19 (Novel Coronavirus), Rapid PCR?? Completed?? Source: Nasal Body Site: Nose Collected Dt/Tm: 07/21/2024 12:14 Last Updated Dt/Tm: 07/21/2024 14:13 ? * Nahed CAMACHO, Neha: PERFORM Event Display: Consultation Note Authored Date: [id number] Patient and charted reviewed. Management discussed with PA. ??Continue the current management as documented in PA's chart?? Note * Shirley Palafox RN: PERFORM Event Display: Discharge/Transfer Note Hospital Authored Date: [id number] Nursing Discharge Note Entered On: 07/24/2024 16:16 EDT Performed On: 07/24/2024 16:16 EDT by Shirley Palafox RN Nursing Discharge Note 2 Discharge Time : 07/24/2024 16:16 EDT Discharge Level of Care at Discharge : Homehealth/VNA Discharge VNA/Hospice/Home Care(v001) : [facility] [phone] Patient Left Unit Via : Wheelchair Patient Accompanied Off Unit with : Significant other, Responsible adult DC Instructions Provided & Signed by Pt : Yes Patient Understands D/C Instructions : Yes Patient Instructions Discharge Signed : Yes Did Pt have Specialty Bed or Wound Vac : No Shirley Palafox RN - 07/24/2024 16:16 EDT * Kate CAMACHO, Darcy Torres: PERFORM Event Display: Discharge/Transfer Note Hospital Authored Date: [id number] Patient: ??RILEY, JAZMINE ? Age:??58 Years?Sex:??Female?:??1965?? Patient Information Discharge Location: Primary Care Physician: Anne Talamantes DO Admit Date/Time: 07/21/24 11:05 Discharge Disposition Discharge Disposition: Home with Home Health Discharge Diagnosis Syncope, near (R55) Stenosis of right vertebral artery (I65.01) Dizziness (R42) Chronic HFrEF (heart failure with reduced ejection fraction) (I50.22) Non-ischemic cardiomyopathy (I42.8) Diabetes mellitus (E11.9) Hypertension (I10) End stage renal disease (N18.6) _ Discharge Medications amiTRIPTYLINE (amitriptyline 50 mg oral tablet)?1?tab(s)?50?Milligram?By Mouth?Daily at bedtime Cholecalciferol (Vitamin D3 2000 intl units oral tablet)?1?tab(s)?2,000?International Unit?By Mouth?Daily in AM dapagliflozin (Farxiga 10 mg oral tablet)?1?tab(s)?10?Milligram?By Mouth?Daily Docusate-Senna (Senna S 50 mg-187 mg oral tablet)?1?tab(s)?By Mouth?Daily?as needed?Constipation?TAKE 1 TABLET BY MOUTH AT BEDTIME Durable Medical Equipment (Freestyle Lite Monitor)?See Instructions?To use 4 times/day ??Diagnosis : DM type 2 Durable Medical Equipment (Freestyle Lite Test Strips)?See Instructions?for 30?Days?to use 4 times/day Diabetes Mellitus type 2 Durable Medical Equipment (Compression Stockings)?See Instructions?surgical, calf length 30-40 mm Hg Insulin Glargine (Lantus Solostar Pen 100 units/mL subcutaneous solution)?35?unit(s)?Subcutaneous Injection?Daily at bedtime Insulin Lispro (Humalog Kwik Pen 100 units/mL subcutaneous injection)?inject 8-20 units per sliding scale twice a day Metoprolol (metoprolol 25 mg oral tablet)?25?Milligram?1?tablet?By Mouth?2 times a day?for 30?Days?Hold if SBP < 120 or HR < 60/min. Omeprazole (omeprazole 20 mg oral enteric coated capsule)?1?capsule?20?Milligram?By Mouth?2 times a day Rosuvastatin (rosuvastatin 40 mg oral tablet)?1?tab(s)?40?Milligram?By Mouth?Daily at bedtime ? Inpatient Medications Medications (24) Active SCHEDULED: (10) Amitriptyline 25 mg Tablet (amitriptyline 25 mg oral tablet) ??50 mg, By Mouth, Daily at bedtime Dapagliflozin 10 mg Tablet (Dapagliflozin Tablet) ??10 mg, By Mouth, Daily Insulin Glargine 100 units/mL Inj (Insulin Glargine Inj) ??30 units 0.3 mL, Subcutaneous Injection,Daily at bedtime Insulin Lispro 100 units/mL Inj (Insulin LISPRO Sliding Scale) ??2-10 units, Subcutaneous Injection, 3 times a day before meals Lisinopril 5 mg Tablet (lisinopril 5 mg oral tablet) ??5 mg, By Mouth, Daily Metoprolol 50 mg Tablet (metoprolol 50 mg oral tablet) ??50 mg, By Mouth, 2 times a day NaCL 0.9% Flush 10ml (NaCL 0.9% Flush) ??10 mL, IV Push, Daily NaCl 0.9% Flush 3ml (NaCL 0.9% Flush) ??3 mL, IV Push, Every 8 hours Pantoprazole 20 mg EC Tablet (pantoprazole 20 mg oral delayed release tablet) ??20 mg, By Mouth, 2 times a day Rosuvastatin 20 mg Tablet (Crestor 20 mg oral tablet) ??40 mg, By Mouth, Daily at bedtime CONTINUOUS: (0) PRN: (14) Acetaminophen 325 mg Tablet (Acetaminophen Tablet) ??650 mg, By Mouth, Every 4 hours Dextromethorphan-Guaifenesin 20 mg-200 mg/10 mL Liqu UD (Robitussin DM Liquid) ??10 mL, By Mouth, Every 4 hours Dextrose Inj Syringe (Dextrose 50% Inj Syringe (25Gm)) ??12.5 Gm, IV Push Slowly, Every 20 minutes Dextrose Inj Syringe (Dextrose 50% Inj Syringe (25Gm)) ??25 Gm, IV Push Slowly, Every 15 minutes Docusate Sodium 100 mg Capsule (Docusate Sodium Capsule) ??100 mg 1 capsule, By Mouth, 2 times a day Glucagon 1 mg Inj (Glucagon Inj) ??1 mg, Intramuscular, Once Glucose 40% Gel (15 Gm) (Glucose Gel) ??15 Gm, By Mouth, Every 20 minutes Glucose 40% Gel (15 Gm) (Glucose Gel) ??30 Gm, By Mouth, Every 20 minutes Melatonin 3 mg Tablet (Melatonin Tablet) ??3 mg, By Mouth, Daily at bedtime NaCL 0.9% Flush 10ml (NaCL 0.9% Flush) ??10 mL, IV Push, Every hour NaCl 0.9% Flush 3ml (NaCL 0.9% Flush) ??3 mL, IV Push, Every 8 hours Polyethylene Glycol 17 Gm Powder (MiraLax Powder) ??17 Gm 1 pack/packet, By Mouth, Daily Senna Tablet ??8.6 mg 1 tablet, By Mouth, 2 times a day Simethicone 80 mg Chewable Tablet (Simethicone Tablet) ??80 mg, Chew, 3 times a day ? Allergies Allergies ?(Active and Proposed Allergies Only) NKA? (Severity: Unknown severity, Onset: Unknown) ? PCP Follow-Up/Heads-Up Please follow up in 1-2 weeks post hospital discharge. Patient is admitted for presyncope likely secondary to orthostatic hypotension and weakness from ??recent chemotherapy. She is also found to have severe multifocal narrowing of the nondominant intradural right vertebral artery.Moderate narrowing of both supraclinoid ICAs on CTA head and neck. She has been symptoms free during hospital stay and consider outpatient neurology referral. Hospital Course see below. Objective Assessment and Plan ?? Assessment:??58-year-old female with past medical history of ESRD??on hemodialysis MWF,??hypertension, hyperlipidemia, IDDM, nonischemic cardiomyopathy with EF??20% (normal coronary angiogram and??10/2022 with persistent cardiomyopathy??despite??maximized GDMT),??chronic LBBB??s/p GAS PLUMBER-D??in??07/2023??BIBEMS due to dizziness??and presyncope??event. CTH : no acute . CTA??head and neck : There is nolarge vessel occlusion in the [place]. Severe multifocal narrowing of the nondominant intradural right vertebral artery. Moderate narrowing of both supraclinoid ICAs. No significant stenosisin the cervical carotids or vertebral arteries. Mild to moderate narrowing of the left subclavian artery origin.??Orthostatic positive and patient and??recently completed chemotherapy for her??Ca bladder management.??ICD interrogated by cardiology and no event noted.??She denied any dizziness/lightheadedness since admission. Her presyncope likely in the setting of recent chemotherapy and orthostatic hypotension. PT evaluated her and recommend home with services. Patient feels great and wants to go home. She is stable for discharge and recommend to follow up with PMD in 1-2 weeks post hospital discharge , consider outpatient neurology referral??and will deferthis to her PMD. ? End stage renal disease (N18.6):?? Patient had the exit site??infection and completed 3 dose of vancomycin in the??last Wednesday blood culture without growth. HD on MWF scheduled. Renal on board.and HD per schedule. ? Diabetes mellitus (E11.9):?? Patient normally uses Lantus 35??units,??and also reports she generally needs 8 to 10 units slidingscale??3 times daily and to??continue home insulin regimen on discharge. ?? Chronic HFrEF (heart failure with reduced ejection fraction) (I50.22) ?Grouped with??Non-ischemic cardiomyopathy (I42.8),??Hypertension (I10) ? Patient had a cardiac cath??in 2022 >??nonischemic,??due to chronic LBBB and??low EF??s/p GAS PLUMBER-D ICD in 07/2023.??EKG shows atrial sensed ventricular paced rhythm,??no acute ST-T changes.??Troponin 35>??35??rules out ACS. patient denies chest pain, on room air saturating well??she has a JVD on exam??but otherwise??no significant pleural effusion or volume overload on chest x-ray.?SBP up to??210.?She supposedly received dialysis today renal has seen and recommended dialysistomorrow.? Plan: Decreased metoprolol to 25mg BID in view of orthostatic hypotension. Continue w Farxiga 10mg daily?? Strict intake and output next?? Started with lisinopril 5 mg daily (due to HFrEF??and uncontrolled hypertension patient is already on dialysis). However her BP has been normotensive after HD, will not continue it on discharge. Will defer PMD for further management. ? 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 Patient comes in with??hypertensive urgency, dizziness??upon standing >??denies??spinning sensation,??also missed her dialysis today.??She had received chemotherapy yesterday.?Patient also has been hyperglycemic has not received her insulin??today. Neuro examination??reassuring. CT head without acute intracranial abnormality.??CT angio head and neck shows no large vessel occlusion in the [place], severe multifocal narrowing of the nondominant intradural right vertebral artery, moderate narrowing of the both supraclinoid ICAs, mild tomoderate narrowing of the left subclavian artery origin. Orthostatic remains positive. Encourage PO hydration. Cardiology interrogated the device : no event per cardiology. Continue statin. She denied any dizziness/lightheadedness since admission. Her presyncope likely in the setting of recent chemotherapy and orthostatic hypotension. PT evaluated her and recommend home with services. Patient feels great and wants to go home. She is stable for discharge and recommend to follow up with PMD in 1-2 weeks post hospital discharge , consider outpatient neurology referral??and will deferthis to her PMD. ?? H/ Ca bladder on chemotherapy She stated that she has history of Ca bladder and follows up with Dr. Calista Alcantara oncologist in [place]. Currently receiving chemotherapy and next appointment on 07/27/24. Suspect her dizziness is multifactorial from recent chemo, orthostatic hypotension. Continue outpatient f/u with Dr. Alcantara. ?I have evaluated patient today via [employer]. She has HD this morning and??post??blood pressure has been normotensive. Her BP medications are held in the setting of orthostatic hypotension. She denied any dizziness/lightheadedness. She stated that she??feels great and wants to??go home today.??PT recommend home with services. Patient is medically stable for discharge, discharge plan discussed with her and she agreed with the plan. ? Measurements?? Height: 155 cm (07/24/24) Weight: 68.1 kg (07/22/24) Dry Weight: 66.8 kg (07/22/24) Body Mass Index:??28.35 kg/m2??High (07/22/24) ? Vital Signs?? Temperature: 98.6 DegF (07/24/24:21:00) Temperature Route: Oral (07/24/24 11:21:00) Pulse Rate:??103 bpm??High (07/24/24:21:00) Pulse Rate, Lyin bpm (07/24/24 11:21:00) Systolic Blood Pressure, Lyin mm Hg (07/24/24 11:21:00) Diastolic Blood Pressure, Lyin mm Hg (07/24/24 11:21:00) Pulse Rate, Sittin bpm (07/24/24 11:21:00) Systolic Blood Pressure, Sittin mm Hg (07/24/24 11:21:00) Diastolic Blood Pressure, Sittin mm Hg (07/24/24 11:21:00) Respiratory Rate: 18 br/min (07/24/24 11:21:00) Systolic Blood Pressure: 120 mm Hg (07/24/24 13:29:00) Diastolic Blood Pressure:??97 mm Hg??High (07/24/24 13:29:00) Blood pressure sites: Arm, right (07/24/24 13:29:00) Mean Arterial Pressure: 105 mm Hg (07/24/24 13:29:00) Pulse Pressure: 23 mm Hg (07/24/24 13:29:00) Oxygen Saturation: 98 % (07/24/24 11:21:00) Mode of Delivery (Oxygen): Room air (07/24/24 11:21:00) Early Warning Score: 2 (07/24/24 13:29:45) ? . Physical Exam General : patient is sitting on the recliner in no apparent acute distress. Respiration : bilateral air entry (+) , no wheezing or crepitations. CVS: S1+S2. Abd: soft, no tenderness. Normoactive bowel sounds. Ext: no pedal edema.?? Consultants Renal Pending Results Add On Lab Order ordered on 07/21/2024 Hold Lavender Tube (BB) ordered on 07/21/2024 Patient Education Titles WebMD Ignite Patient Education - Preventing Falls in the Home?? Web[employer] Ignite Patient Education - Possible Causes of Dizziness or Fainting?? Web[employer] Ignite Patient Education - Hypotension, Orthostatic?? WebMD Ignite Patient Education - Understanding Orthostatic Hypotension?? WebMD Ignite Patient Education - Dizziness (Vertigo) and Balance Problems: Staying Safe?? Follow-Up Appointments Added Follow Up ?Time Frame ?Comments Anne Talamantes?1 to 2 weeks?Please call and schedule follow up appointment in 1-2 weeks post hospital discharge. Patient Instructions You have orthostatic hypotension condition which is positional related drop in blood pressure , please increased oral hydration and stay hydrated. Can wear over the counter compression stockings during daytime to improve this condition.?? Please check your blood pressure daily at home and please do not take blood pressure medications ifyour systolic blood pressure is below 120mmhg.?? Please follow up with your PMD in 1-2 weeks post hospital discharge.?? Please seek immediate medical attention if there is any dizziness/lightheadedness, slurred speech, facial asymmetry , arm and leg??weakness or any other concerning symptoms.?? Home Health Face to Face *Denotes mandatory myrick ?? *I certify that this patient is under my care and that I or an allowed non- physician working with me had a face to face encounter with the patient on this date:??07/24/2024 14:52 ?? 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 *Select the indications for the discipline/s that are being arranged for this patient. Nursing (select all that apply): [_] None [X] Medication management (reconciliation, teaching)?? [X] Chronic disease management?? [_] Wound care and treatment?? [_] Home safety evaluation [_] Administer SQ/IM/IV medications?? [_] Cath care?? [_] Drain care?? [_] Trach or GT care?? Other _ Occupation Therapy (select all that apply): [_] None [_] ADL Management [_] Fall prevention training [_] Energy conservation [_] Cognitive training Other _ Physical Therapy (select all that apply): [_] None [X] Functional mobility training [X] Home exercise program to strengthen [_] Increase ROM?? [X] Falls prevention training [X] Home maintenance program for chronic disease Other _ Speech Therapy (select all that apply): [_] None [_] Swallow evaluation and training [_] Speech and language training [_] Cognitive training to process, organize, and/or recall information Other _ ? *Homebound due to (select all that apply): [_] Inability to leave home without assistance/supervision [_] Inability to ambulate without assistance [_] Pain [X] Decreased strength and endurance [_] Unsteady gait [_] Severe SOB and fatigue [_] Impaired transfers [_] Inability to negotiate stairs [_] Limited weight bearing [_] Mental status change? *Physician Signature: _MARY CAMACHO ?? *By signing this, I certify that I have personally evaluated the patient and agree with the findings and recommendations as documented above. ? F Results Discharge Labs BLOOD COUNT & DIFF WBC 9.0 k/mm3 ()?? 07/24/2024 00:39 RBC 3.59 m/mm3 (Low)?? 07/24/2024 00:39 Hgb 11.1 Gm/dL (Low)?? 07/24/2024 00:39 Hct 34.2 % (Low)?? 07/24/2024 00:39 MCV 95.3 femtoliters ()?? 07/24/2024 00:39 MCH 30.9 pg ()?? 07/24/2024 00:39 MCHC 32.5 Gm/dL (Low)?? 07/24/2024 00:39 Platelet Count 222 k/mm3 ()?? 07/24/2024 00:39 RDW-SD 51.4 femtoliters (High)?? 07/24/2024 00:39 MPV 10.0 femtoliters ()?? 07/24/2024 00:39 Nucleated RBC (Automated) 0.0 #/100 WBC'S ()?? 07/24/2024 00:39 Abs. NRBC 0.0 k/mm3 ()?? 07/24/2024 00:39 Abs. Neut 12.2 k/mm3 (High)?? 07/21/2024 13:40 Abs. Lymph 0.9 k/mm3 ()?? 07/21/2024 13:40 Abs. Brule 0.7 k/mm3 ()?? 07/21/2024 13:40 Abs. Eo 0.0 k/mm3 ()?? 07/21/2024 13:40 Abs. Baso 0.0 k/mm3 ()?? 07/21/2024 13:40 Neut % 87.7 % (High)?? 07/21/2024 13:40 Lymph % 6.8 % (Low)?? 07/21/2024 13:40 Brule % 5.1 % ()?? 07/21/2024 13:40 Eos % 0.0 % ()?? 07/21/2024 13:40 Baso % 0.1 % ()?? 07/21/2024 13:40 Imm Gran 0.3 % ()?? 07/21/2024 13:40 Abs. Imm Gran 0.0 k/mm3 ()?? 07/21/2024 13:40 ?? CARDIAC High Sensitivity Troponin (HSTnT) 35 ng/L (High)?? 07/21/2024 16:16 ? CHEM GENERAL Sodium 134 mmol/L ()?? 07/24/2024 00:39 Potassium 4.0 mmol/L ()?? 07/24/2024 00:39 Chloride 98 mmol/L ()?? 07/24/2024 00:39 Bicarbonate Level 20 mmol/L (Low)?? 07/24/2024 00:39 Anion Gap 16 ()?? 07/24/2024 00:39 Glucose Level 114 mg/dL (High)?? 07/22/2024 01:41 Glucose, POC 122 mg/dL (High)?? 07/24/2024 11:27 BUN 46 mg/dL (High)?? 07/24/2024 00:39 Creatinine-Blood 6.06 mg/dL (High)?? 07/24/2024 00:39 Estimated GFR Creatinine 7 ML/MIN/1.73 M2 ()?? 07/24/2024 00:39 Calcium 9.5 mg/dL ()?? 07/22/2024 01:41 Calcium, Ionized pH Corrected 1.28 mmol/L ()?? 07/21/2024 13:40 Phosphorus 5.0 mg/dL (High)?? 07/24/2024 00:39 Magnesium 2.1 mg/dL ()?? 07/24/2024 00:39 Protein, Total 6.9 Gm/dL ()?? 07/22/2024 01:41 Albumin 3.2 Gm/dL (Low)?? 07/22/2024 01:41 AG Ratio 0.9 ()?? 07/22/2024 01:41 Alkaline Phosphatase 98 units/L ()?? 07/22/2024 01:41 AST (SGOT) 14 units/L ()?? 07/22/2024 01:41 ALT (SGPT) 11 units/L ()?? 07/22/2024 01:41 Bilirubin, Total 0.2 mg/dL ()?? 07/22/2024 01:41 Iron Level 66 mcg/dL ()?? 07/21/2024 16:16 Iron Binding Capacity, Unsaturated 91 mcg/dL (Low)?? 07/21/2024 16:16 Iron Binding Capacity, Estimated Total 157 mcg/dL ()?? 07/21/2024 16:16 % Iron Saturation 42 % ()?? 07/21/2024 16:16 Ferritin Level 2539 ng/mL (High)?? 07/21/2024 16:16 ?? COAG INR 1.0 ()?? 07/21/2024 13:40 Protime (PT) 10.3 seconds ()?? 07/21/2024 13:40 APTT 26.4 seconds ()?? 07/21/2024 13:40 ? ENDOCRINE/TUMOR MARKER TSH 0.61 uIU/mL ()?? 07/21/2024 13:40 PTH, Intact 148 pg/mL (High)?? 07/21/2024 13:40 ?? URINE OTHER Est Creatinine Clearance 7.46 mL/min ()?? 07/24/2024 01:26 ? VIROLOGY COVID-19 by RT-PCR NEGATIVE ()?? 07/21/2024 12:46 ? I spent a total of??38 minutes reviewing the chart / medical records, evaluating the patient, evaluating and interpreting laboratory and imaging data, discussing the??discharge plan with patient ,RN,CM , and documenting the encounter.? 38_ minutes spent on discharge * Shirley Palafox RN: PERFORM Event Display: Patient Education/Instruction Authored Date: [id number] Inpatient Adult Discharge Instructions. [place] [id number] Name: JAZMINE RILEY : 1965?? Visit: 07/21/2024 11:05?? Current Date: 07/24/2024 15:49 ?? Account: [id number]?? Inpatient Adult Discharge Instructions We would like [...] and their families. Surveys are administered by [employer], [place]. ?? If further treatment with your primary care physician or another doctor is recommended, it is important for you to keep the appointment. Call your primary care physician or return to the Emergency Department immediately if your condition worsens, fails to improve, or new symptoms develop. If you need to find a doctor, you can call [facility] [employer] for a referral at [phone] or toll free at [phone]) or log in to [email or web address].. ?? [facility], in keeping with [facility] guidance, no longer requires face masks for [...] a health care tania of your choosing. [employer] is a website that allows you to securely view your medical information including your hospital discharge summary, office visit summaries, medications and follow-up visits. You can also request appointments, renew medications, and request access to your medical information using a health care tania of your choosing, or just ask a question. You can enroll at [email or web address] or register during your next office visit. You have been discharged from [facility], Patient Care Unit: M6??. If you have any questions regarding these instructions, including results of studies pending, afteryou leave, please call us and we will be happy to assist you 19/04. [facility] Your Care Team Attending Physician Kate CAMACHO, Darcy Torres?? Consulting Providers Darcy Love MD?? Discharging Providers Darcy Love MD Reason for Your Visit Hx. chemo/dialysis. From home c/o weakness, baseline able to ambulate get off of bed independently,today lethargic. Being treated for infected port in R side chest. POC 500, BP 200/90.?? Your Diagnosis Chronic HFrEF (heart failure with reduced ejection fraction) Diabetes mellitus Dizziness Dizziness End stage renal disease Hypertension Non-ischemic cardiomyopathy Stenosis of right vertebral artery Tests Performed Below is a partial list of the tests performed during your hospitalization. You may have had other tests and procedures not included in this list. Please discuss all test results with your provider. AST Basic Metabolic Panel BUN Calcium Ionized CBC CBC w/ Differential Comprehensive Metabolic Panel COVID-19 (Novel Coronavirus), Rapid PCR Creatinine Electrolytes FERRITIN GLUCOSE POC High??Sensitivity??Troponin T IRON & TIBC Magnesium Level Mg Level Phosphorus Level PT (INR) PTH, INTACT PTT Troponin T, High Sensitivity TSH with T4 Reflex (Adults Only) CT Angio Head CT Angio Neck CT Head/Brain W/O Contrast XR Chest 2 Views Frontal and Lat AST?? Add On Lab Order?? BUN?? Basic Metabolic Panel?? CBC?? CBC w/ Differential?? COVID-19 (Novel Coronavirus), Rapid PCR?? CT Angio Head?? CT Angio Neck?? CT Head/Brain W/O Contrast?? Comprehensive Metabolic Panel?? Creatinine?? Electrolytes?? Ferritin?? Glucose POC?? High??Sensitivity??Troponin T (Troponin T, High Sensitivity)?? Hold Lavender Tube (BB)?? INR (PT (INR))?? Ionized Calcium (Calcium Ionized)?? Iron + Iron Binding Capacity (IRON & TIBC)?? Magnesium Level?? PTH Intact (PTH, INTACT)?? PTT?? Phosphorus Level?? TSH with T4 Reflex (Adults Only)?? Chest 2 Views Frontal and Lat (XR Chest 2 Views Frontal and Lat)?? Primary Care Provider Anne Talamantes DO? Advance Directive Health Care Proxy on File No Discharge Vitals Temperature: 98.6 DegF Height: 155 cm Pulse Rate:??103 bpm??High Weight: 68.1 kg Respiratory Rate: 18 br/min Body Mass Index:??28.35 kg/m2??High Systolic Blood Pressure: 120 mm Hg Body surface area: 1.71 Diastolic Blood Pressure:??97 mm Hg??High ?? Oxygen Saturation: 98 % ?? Studies Pending All studies ordered during this hospital stay have been completed unless listed below. Please discuss all pending results with your provider listed above in these instructions. ?? Add On Lab Order?? Hold Lavender Tube (BB)?? What to do next Instructions From Your Doctor You have orthostatic hypotension condition which is positional related drop in blood pressure , please increased oral hydration and stay hydrated. Can wear over the counter compression stockings during daytime to improve this condition.?? Please check your blood pressure daily at home and please do not take blood pressure medications ifyour systolic blood pressure is below 120mmhg.?? Please follow up with your PMD in 1-2 weeks post hospital discharge.?? Please seek immediate medical attention if there is any dizziness/lightheadedness, slurred speech, facial asymmetry , arm and leg??weakness or any other concerning symptoms.? Orders? 07/24/24 14:54:00 EDT?? Prescriptions??, ??07/24/24 14:54:00 EDT?? You Need to Schedule the Following Appointments Follow Up with??Anne Talamantes When:??Within 1 to 2 weeks Why: Please call and schedule follow up appointment in 1-2 weeks post hospital discharge. Where: [address] [place] [id number]- Business (1) Discharge Medications JAZMINE RILEY :1965 Visit Date:07/21/2024 Medications: Please continue your medications until treatment is completed or stopped by your provider. Medications not listed below should be discontinued. Discuss any questions related to medications with your provider. What How Much When Instructions Next Dose Changed Metoprolol (metoprolol 25 mg oral tablet) 1 tab(s) Oral Twice a day Duration: 30 Days Hold if SBP < 120 or HR < 60/ min. ?? 9 PM Unchanged amiTRIPTYLINE (amitriptyline 50 mg oral tablet) 1 tab(s) Oral Daily at Bedtime continue home schedule Unchanged Cholecalciferol (Vitamin D3 2000 intl units oral tablet) 1 tab(s) Oral Daily in the morning continue home schedule Unchanged dapagliflozin (Farxiga 10 mg oral tablet) 1 tab(s) Oral Daily continue home schedule Unchanged Docusate-Senna (Senna S 50 mg-187 mg oral tablet) 1 tab(s) Oral Daily as needed for Constipation TAKE 1 TABLET BY MOUTH AT BEDTIME ?? continue home schedule Unchanged Durable Medical Equipment (Compression Stockings) See instructions surgical, calf length 30-40 mm Hg ?? Unchanged Durable Medical Equipment (Freestyle Lite Monitor) See instructions To use 4 times/ day ?? Diagnosis : DM type 2 ?? Unchanged Durable Medical Equipment (Freestyle Lite Test Strips) See instructions Duration: 30 Days to use 4 times/ day Diabetes Mellitus type 2 ?? Unchanged Insulin Glargine (Lantus Solostar Pen 100 units/ mL subcutaneous solution) 35 unit(s) Subcutaneous Injection Daily at Bedtime continue home schedule Unchanged Insulin Lispro (Humalog Kwik Pen 100 units/ mL subcutaneous injection) inject 8-20 units per sliding scale twice a day ?? continue home schedule Unchanged Omeprazole (omeprazole 20 mg oral enteric coated capsule) 1 capsule Oral Twice a day continue home schedule Unchanged Rosuvastatin (rosuvastatin 40 mg oral tablet) 1 tab(s) Oral Daily at Bedtime continue home schedule ?? What How Much When Comments Stop Taking Aspirin 81 Milligram Oral Daily Stop Taking Ferrous Sulfate (FeroSul 325 mg oral tablet) 1 tab(s) Oral Daily EVERY EVENING ?? Stop Taking sacubitril-valsartan (Entresto 24 mg-26 mg oral tablet) 1 tab(s) Oral Twice a day Prescription Given During Visit Metoprolol (metoprolol 25 mg oral tablet) - 1 tablet = 25 mg, By Mouth, 2 times a day, # 60 tablet,0 Refills, Hold if SBP < 120 or HR < 60/min.?? Laboratory Results Below is a partial list of the most recent Laboratory test results done prior to this discharge. You may have had other tests and procedures not included in this list. Please discuss all test resultswith your provider. Est Creatinine Clearance - 7.46 mL/min (07/24/2024) AST (07/21/2024) ???AST (SGOT) - 14 units/L Basic Metabolic Panel (07/21/2024) ???Sodium - 129 mmol/L???Potassium - 4.4 mmol/L???Chloride - 94 mmol/L???Bicarbonate Level - 21 mmol/L???Anion Gap - 14???Glucose Level - 388 mg/dL???BUN - 39 mg/dL???Creatinine-Blood - 4.98 mg/dL???Estimated GFR Creatinine - 9 ML/MIN/1.73 M2???Calcium - 9.7 mg/dL BUN (07/24/2024) ???BUN - 46 mg/dL Calcium Ionized (07/21/2024) ???Calcium, Ionized pH Corrected - 1.28 mmol/L CBC (07/24/2024) ???WBC - 9.0 k/mm3???RBC - 3.59 m/mm3???Hgb - 11.1 Gm/dL???Hct - 34.2 %???MCV - 95.3 femtoliters???MCH - 30.9 pg???MCHC - 32.5 Gm/dL???Platelet Count - 222 k/mm3???RDW-SD - 51.4 femtoliters???MPV - 10.0 femtoliters???Nucleated RBC (Automated) - 0.0 #/100 WBC'S???Abs. NRBC - 0.0 k/mm3 CBC w/ Differential (07/21/2024) ???WBC - 13.9 k/mm3???RBC - 3.38 m/mm3???Hgb - 10.6 Gm/dL???Hct - 31.1 %???MCV - 92.0 femtoliters???MCH - 31.4 pg???MCHC - 34.1 Gm/dL???Platelet Count - 219 k/mm3???RDW-SD - 49.9 femtoliters???MPV - 10.1 femtoliters???Nucleated RBC (Automated) - 0.0 #/100 WBC'S???Abs. NRBC - 0.0 k/mm3???Abs. Neut -12.2 k/mm3???Abs. Lymph - 0.9 k/mm3???Abs. Brule - 0.7 k/mm3???Abs. Eo - 0.0 k/mm3???Abs. Baso - 0.0k/mm3???Neut % - 87.7 %???Lymph % - 6.8 %???Brule % - 5.1 %???Eos % - 0.0 %???Baso % - 0.1 %???Imm Gran - 0.3 %???Abs. Imm Gran - 0.0 k/mm3 Comprehensive Metabolic Panel (07/22/2024) ???Sodium - 132 mmol/L???Potassium - 3.6 mmol/L???Chloride - 97 mmol/L???Bicarbonate Level - 20 mmol/L???Anion Gap - 15???Glucose Level - 114 mg/dL???BUN - 42 mg/dL???Creatinine-Blood - 5.40 mg/dL???Estimated GFR Creatinine - 9 ML/MIN/1.73 M2???Calcium - 9.5 mg/dL???Protein, Total - 6.9 Gm/dL???Albumin - 3.2 Gm/dL???AG Ratio - 0.9???Alkaline Phosphatase - 98 units/L???AST (SGOT) - 14 units/L???ALT (SGPT) - 11 units/L???Bilirubin, Total - 0.2 mg/dL COVID-19 (Novel Coronavirus), Rapid PCR (07/21/2024) ???COVID-19 by RT-PCR - NEGATIVE Creatinine (07/24/2024) ???Creatinine-Blood - 6.06 mg/dL???Estimated GFR Creatinine - 7 ML/MIN/1.73 M2 Electrolytes (07/24/2024) ???Sodium - 134 mmol/L???Potassium - 4.0 mmol/L???Chloride - 98 mmol/L???Bicarbonate Level - 20 mmol/L???Anion Gap - 16 FERRITIN (07/21/2024) ???Ferritin Level - 2539 ng/mL GLUCOSE POC (07/24/2024) ???Glucose, POC - 122 mg/dL High??Sensitivity??Troponin T (07/21/2024) ???High Sensitivity Troponin (HSTnT) - 35 ng/L IRON & TIBC (07/21/2024) ???Iron Level - 66 mcg/dL???Iron Binding Capacity, Unsaturated - 91 mcg/dL???Iron Binding Capacity,Estimated Total - 157 mcg/dL???% Iron Saturation - 42 % Magnesium Level (07/24/2024) ???Magnesium - 2.1 mg/dL Mg Level (07/22/2024) ???Magnesium - 2.0 mg/dL Phosphorus Level (07/24/2024) ???Phosphorus - 5.0 mg/dL PT (INR) (07/21/2024) ???INR - 1.0???Protime (PT) - 10.3 seconds PTH, INTACT (07/21/2024) ???PTH, Intact - 148 pg/mL PTT (07/21/2024) ???APTT - 26.4 seconds Troponin T, High Sensitivity (07/21/2024) ???High Sensitivity Troponin (HSTnT) - 35 ng/L TSH with T4 Reflex (Adults Only) (07/21/2024) ???TSH - 0.61 uIU/mL You will be contacted within 72 hours with your results. Education Materials Below is the list of Educational Leaflet Providered with your Discharge Instructions. WebMD Ignite Patient Education - Preventing Falls in the Home?? Web[employer] Ignite Patient Education - Possible Causes of Dizziness or Fainting?? Web[employer] Ignite Patient Education - Hypotension, Orthostatic?? WebMD Ignite Patient Education - Understanding Orthostatic Hypotension?? WebMD Ignite Patient Education - Dizziness (Vertigo) and Balance Problems: Staying Safe?? Valuables and Belongings I fully understand and agree that [facility] accepts no responsibility for all my personal [...] patient Date for Pt to Sign Valuables/Belongings: 07/21/24 17:35:00 ?? Other Discharge Information ? Case Management Discharge Plan?? Discharge Plan?? Discharge Agency Information?? Discharge Level of Care at Discharge: Homehealth/VNA Name of Agency #1: [facility] Discharge VNA/Hospice/Home Care: [facility] [phone] Service Categories #1: Physical Therapy, Fpc ?? Service Comments #1: The nurse will see you the day after discharge. They will call before they come to set up a time to see you. If they do not call within 24 hours, please call the main VNA number to inquire when they are coming. ?? Pulmonary Rehab Status?? Pulmonary Rehab Discharge Status?? [...] are strongly encouraged to quit. Please call [facility] [employer] [facility] at [phone] or [phone]) or log in to [email or web address] for referrals to smoking cessation programs. ?? 988 Suicide & Crisis Lifeline is available 19/04 if you or someone you know needs to find a reason to keep living. By calling 468 you'll be connected to a skilled, trained counselor at a crisis center in your area. INPATIENT DISCHARGE INSTRUCTIONS SIGNATURE PAGE JAZMINE RILEY Location:[facility] Registration Date and Time:07/21/2024 11:05 EDT Primary Care Physician: Anne Talamantes DO, Attending Physician: Kate CAMACHO, Darcy Torres, I JAZMINE RILEY, have received the above patient education materials/instructions and have verbalized understanding. If ambulance or transport services are being used I further acknowledge being given a choice of service. ?? If you need to contact me, please call me at this number: . Patient/Making Machine Operator Name: Patient/Making Machine Operator Signature: Relationship to Patient: Witness Name/Signature: Date: * Darcy Love MD: PERFORM, SIGN, VERIFY Event Display: Patient Education Handout Authored Date: * Darcy Love MD: PERFORM Event Display: Patient Education Leaflets Authored Date: Multiple Documents ?? [id number] Prevenci??n de ca??miller en el hogar Enio persona se puede caer por muchas razones. Los adultos mayores pueden caerse porque el tiempo dereacci??n se vuelve m??s lento con la edad. Los m??sculos y las articulaciones pueden volverse m??sr??gidos, d??heena o menos flexibles debido a enio enfermedad, el uso de medicamentos o enio afecci??n f??kyler. Otros problemas de marina que hacen que las ca??miller santino m??s probables incluyen los siguientes: ??? Artritis ??? Mareos o aturdimiento al pararse (hipotensi??n ortost??aziza) ??? Antecedentes de ataque cerebral ??? Mareos ??? Anemia ??? Ciertos medicamentos que se daniele para enfermedades mentales o para controlar la presi??n arterial ??? Problemas de equilibrio o con el paso al caminar ??? Prob lemas urinarios o de la vejiga ??? Antecedentes de ca??miller ??? Cambios en la vista (vista defectuosa) ??? Cambios en la capacidad de pensar y la memoria (deterioro cognitivo) ??? Debilidad muscular ??? Consumo excesivo de alcohol Las ca??miller pueden causar lesiones graves, jael traumatismo de reji, huesos rotos, articulacionesdislocadas, hemorragia interna y victoria. Lesiones jael estas pueden limitar saab independencia. Consejos de prevenci??n Para ayudar a prevenir las ca??miller y las lesiones relacionadas con las ca??miller, siga los consejos que se gume a continuaci??n.?? Pisos Para que los pisos santino m??s seguros, faye lo siguiente:? Ponga bases antideslizantes debajo de las alfombras. ??? Retire las alfombras madison??as. ??? Cambie los revestimientos para piso que est??n desgastados. ??? En escaleras alfombradas, fije las alfombras firmemente a cada escal??n con tachuelas. En escaleras no alfombradas, coloque tiras antidesli zantes en los bordes de los escalones. ??? No deje obst??culos ni cables en los pisos y en las escaleras. ??? No deje juguetes de ni??os ni animales en los pisos y en las escaleras. ??? Disponga los muebles de modo que haya v??as libres de circulaci??n. ??? Limpie de inmediato cualquier derrame. Nocamine sobre pisos mojados. Ba??os Para que los ba??os santino m??s seguros, faye lo siguiente:? Instale barras de sujeci??n en la ruben o ducha. ??? Instale un inodoro o un asiento para inodoro elevado. ??? Aplique tiras antideslizantes o coloque enio alfombra de goma a prueba de resbalones en la ruben o ducha. ??? Si??ntese en un asiento para ruben mientras se ba??a. ??? Use alfombras de ba??o con base antideslizante. Iluminaci??n Para mejorar la visibilidad en el hogar, faye lo siguiente:? Tenga a mano enio linterna en cadahabitaci??n. O ponga enio l??mpara junto a la cama que sea f??cil de alcanzar. ??? Ponga lamparillasnocturnas en los dormitorios, los corredores, la cocina y los ba??os. ??? Aseg??rese de que las escaleras est??n olga iluminadas. Debe cynthia un interruptor de leslie en la parte inferior y superior de cada malika. ?? Otros cambios que puede hacer ??? Examine saab casa en busca de riesgos de seguridad. F??pino especialmente en las diaz, los pasillos y el dina de entrada a la casa. Retire o arregle cualquier problema de seguridad que encuentre. ??? Use zapatos que tengan un calce c??modo. Nunca camine descalzoni use calcetines o pantuflas con suela sebastian. ??? Visite al proveedor de atenci??n de la vista enio vez al a??o si usa anteojos. Chappell sirve para asegurarse de que la receta a??n es correcta para usted. ??? T??mese saab tiempo para subir y bajar escaleras; utilice siempre los pasamanos. Nunca tenga lasdos richar ocupadas con art??culos. ??? Use un collar o pulsera de alerta si es propenso a las ca??miller. ??? Instale pasamanos a ambos lados de las escaleras y en los pasillos para tener un mejor apoyo. Para prevenir lesiones en las mu??ecas o en los brazos, no utilice los pasamanos para impulsarse hacia arriba. ??? Use un koffi de alcance para agarrar objetos dif??ciles de alcanzar. ??? Instale barras de sujeci??n donde sea necesario para ponerse de pie. ??? Organice los art??culos que usa con mayor frecuencia. Procure que santino m??s f??ciles de encontrar y de alcanzar. ??? Controle d??nde est??n las mascotas para no tropezar con ellas cuando camina. ?? Last Reviewed Date: 2022 ?? [id number] [email or web address]. Todos los derechos reservados. Esta informaci??n no pretende sustituir la atenci??n m??dica profesional. S??lo saab m??dico puede diagnosticar y tratar un problema de marina. ?? * Darcy Love MD: PERFORM Event Display: Patient Education Leaflets Authored Date: [id number] Multiple Documents ?? [id number] Posibles causas de los mareos o desmayos Los mareos o desmayos pueden tener muchas causas. A continuaci??n, se describen algunos ejemplos deposibles causas que saab proveedor de atenci??n m??dica estudiar?? y descartar??. V??rtigo posicional parox??stico moy (VPPB) El VPPB ocurre cuando los lizett de calcio dentro del o??do interno se colocan en enio posici??n incorrecta. El VPPB causa episodios de v??rtigo, enio sensaci??n de que la reji est?? dando vueltas. Los episodios suelen suceder cuando la reji se mueve de cierta manera. Esta afecci??n es m??s frecuente en personas de m??s de 65??a??os.? Infecci??n o inflamaci??n Los conductos semicirculares del o??do interno son 3??tubos diminutos que jean carlos bucles en 3??direcciones diferentes. Cuando se mueve el l??quido de los tubos, se env??an se??ales al cerebro que lo ayudan a mantener el equilibrio. Estos conductos semicirculares pueden infectarse o inflamarse. En carrie bryce, pueden enviar las se??ales de equilibrio incorrectas. Chappell puede provocar v??rtigo. ?? Enfermedad de M??ni??re La enfermedad de M??ni??re se produce cuando hay demasiado l??quido en los conductos semicirculares. Chappell puede provocar v??rtigo. Tambi??n puede causarle problemas de audici??n y zumbidos o pitidos en los o??dos (ac??fenos o tinitus). Tambi??n es posible que tenga enio sensaci??n de presi??n o hinchaz??n en el o??do. ?? S??ncope El s??ncope es un desmayo que ocurre cuando el cerebro no obtiene kayla suficientemente oxigenada.Puede deberse a enio frecuencia card??david baja o a enio presi??n arterial baja. Si ocurre jael parte de enio respuesta a alg??n temor o a la ansiedad, se denomina s??ncope vasovagal. Tambi??n puede ser provocado por sentarse o pararse demasiado r??pido. Chappell se conoce jael hipotensi??n ortost??aziza. El s??ncope tambi??n puede deberse a un problema en enio v??lvula card??david, un ritmo card??aco anormal u otros problemas con el coraz??n, los pulmones o los vasos sangu??neos. ?? Otras causas Otras causas pueden ser las siguientes: ??? Problemas cerebrales. Estos incluyen un derrame cerebral o sangrado (hemorragia) en el cerebro.Es posible que tenga que hacerse algunas pruebas para descartar estas afecciones. ??? Medicamentos.Ciertos medicamentos pueden causar mareos e incluso desmayos. En algunos casos, suspender un medicamento demasiado pronto puede llevar a s??ntomas de abstinencia, incluidos los mareos y los desmayos.??? Ansiedad. Estar ansioso puede llevar a cambios en la respiraci??n, jael la hiperventilaci??n. Estos pueden producir mareos y desmayos. Tambi??n existen otras causas de los mareos y desmayos.??Consulte con saab proveedor para obtener m??s informaci??n. ? Last Reviewed Date: 2021 ?? [id number] [email or web address]. Todos los derechos reservados. Esta informaci??n no pretende sustituir la atenci??n m??dica profesional. S??lo saab m??dico puede diagnosticar y tratar un problema de marina. ?? * Darcy Love MD: PERFORM Event Display: Patient Education Leaflets Authored Date: [id number] Multiple Documents ?? [id number] Hipotensi??n Ortost??aziza [Orthostatic Hypotension] El rango normal de la presi??n arterial es entre 90/60??y 140/80. La presi??n arterial baja (tambi??n llamada hipotensi??n) es enio disminuci??n de la presi??n??arterial de lo que es normal para usted. La hipotensi??n ortost??aziza es un tipo de presi??n arterial baja que ocurre solamente cuando se cambia la posici??n del cuerpo de acostado a parado. Puede causar s??ntomas de mareo,??aturdimiento o desmayo. Algunas de las causas de la hipotensi??n ortost??aziza: ??? Ciertos medicamentos, incluyendo: o Medicamentos para la presi??n arterial o Diur??ticos (p??ldoras de agua) o Algunos medicamentos para el coraz??n o Algunos antidepresivos o Medicamentos para el dolor, la ansiedad, sedativos y lilo para dormir ??? Deshidrataci??n (por v??omar, diarrea o poco consumo de l??quidos) ??? Infecci??n severa, fiebre nydia ??? P??rdida de kayla (por ejemplo poruna??hemorragia estomacal o intestinal) El tratamiento depender?? de la causa de saab presi??n arterial baja. Cuidado En [place]: 1. Descanse hasta que mejoren los s??ntomas. 2. Cambie lentamente de la posici??n de estar acostadoa estar de pie. Cuando se levante de la cama, si??ntese en el borde de la cama con kirill piernas hacia abajo solis por lo menos 30 segundos antes de ponerse de pie. Chappell le da al cuerpo tiempo de ajus tarse al cambio de posici??n. 3. Siga el plan de tratamiento descrito por saab m??dico. Seguimiento con saab m??dico o de acuerdo con lo recomendado por nuestro personal. Busque Prontamente Atenci??n M??dica si algo de lo siguiente ocurre: ??? Mareo, aturdimiento o desmayo ??? Color negruzco o rojizo en??las materias fecales o en el v??omar ??? Diarrea o v??omar persistentes ??? Incapacidad de comer o beber ??? Fiebre de 100.4??F (38??C) o m??s nydia, o jael le haya indicado saab proveedor de atenci??n m??dica ??? Ardor al orinar u orina con olor desagradable Last Reviewed Date: 2016 ?? [id number] [email or web address]. Todos los derechos reservados. Esta informaci??n no pretende sustituir la atenci??n m??dica profesional. S??lo saab m??dico puede diagnosticar y tratar un problema de marina. ?? * Darcy Love MD: PERFORM Event Display: Patient Education Leaflets Authored Date: [id number] Multiple Documents ?? [id number] Hipotensi??n ortost??aziza?? La hipotensi??n ortost??aziza es la presi??n arterial baja cuando se pone de pie despu??s de cynthia estado sentado o acostado. Puede provocar s??ntomas jael mareos, aturdimiento y visi??n borrosa. Tambi??n puede provocar desmayos o ca??miller. Sentarse o acostarse dayna los s??ntomas. How to say it [id number] ?Qu?? causa la hipotensi??n ortost??aziza??? La presi??n arterial la fuerza con la cual se mueve la kayla a george??s de los vasos sangu??neos. La hipertensi??n quiere decir que la presi??n arterial est?? nydia. La hipotensi??n quiere decir que est?? baja. Ortost??nader hace referencia a enio postura erguida. Muchas cosas pueden hacer que la presi??n arterial est?? demasiado baja cuando se pone de pie.?? Algunos medicamentos pueden provocar hipotensi??n ortost??aziza. Entre ellos, se encuentran los siguientes: ??? Medicamentos para la presi??n arterial ??? Pastillas para la retenci??n de l??quidos (diur??ticos) ??? Algunos antidepresivos ??? Algunos medicamentos para el coraz??n ??? Algunos medicamentos para el dolor, la ansiedad, medicamentos sedantes y para dormir?? Otras causas pueden ser las siguientes: ??? [place] enio comida abundante ??? P??rdida de l??quidos corporales (deshidrataci??n) por v??mitos, diarrea o por no beber lo suficiente ??? Alteraciones en los vasos sangu??neos por tener edad avanzada ??? Infecci??n grave ??? Fiebre nydia ??? P??rdida de kayla, jael sangrado del est??linda o de los intestinos ??? Enfermedades neurol??gicas que afectan el sistema nervioso aut??nomo, jael la enfermedad de Parkinson ??? Insuficiencia card??david congestiva ??? Diabetes ??? Alcoholismo ??? Neuropat??a perif??fely? S??ntomas de la hipotensi??n ortost??aziza?? Los s??ntomas se presentan cuando se para despu??s de cynthia estado sentado o acostado. Tambi??n pueden aparecer despu??s de estar de pie por un tiempo tyrese. Pueden incluir lo siguiente: ??? Sensaci??n de aturdimiento ??? Mareo ??? Debilidad ??? Visi??n borrosa ??? Visi??n de t??lio ??? Dolor en la nuca, el dirk y los hombros ??? Desmayos?? Los s??ntomas se alivian o desaparecen cuando se sienta o se acuesta.? Diagn??stico de la hipotensi??n ortost??aziza?? Saab proveedor de atenci??n m??dica le preguntar?? por los s??ntomas y antecedentes m??dicos. Debe contarle sobre cada medicamento que use. Chappell incluye los suplementos de venta jasmeet, vitaminas y hierbas. Tambi??n d??gale si marmolejo estado enfermo recientemente.?? Es posible que le halina pruebas y an??lisis tales jael los siguientes: ??? An??lisis de presi??n arterial. El proveedor de atenci??n m??dica medir?? la presi??n arterial mientras est?? sentado y mientras est?? de pie. ??? An??lisis de kayla. Permiten evaluar si hay enio enfermedad u otras afecciones que puedan causar el problema. ??? Electrocardiograma. Esta prueba sirve para medir la actividad el??ctrica del coraz??n.? Tratamiento para la hipotensi??n ortost??aziza?? El tratamiento puede depender de lo que est?? causando la presi??n arterial baja. Puede incluir cualquiera de los siguientes: ??? Dejar de areli medicamentos que est??n causando los s??ntomas ??? Ponerse de piel lentamente ??? No pasar tiempo en el [place] ??? Beber suficiente cantidad de l??quidos ??? [place] m??s yovani ??? Beber menos alcohol?? En algunos casos, el proveedor de atenci??n m??dica puede recetar un medicamento para ayudar a prevenir la hipotensi??n ortost??aziza. Hable con kirill proveedores sobre los riesgos, beneficios y posibles efectos secundarios de todos los medicamentos.? Posibles complicaciones de la hipotensi??n ortost??aziza?? La condici??n puede causar ca??miller, especialmente en adultos mayores. Las ca??miller pueden provocar lesiones y tener que pasar cierto tiempo en el hospital. Las personas con hipotensi??n ortost??aziza tambi??n pueden tener un mayor riesgo de problemas card??acos futuros. Estos incluyen la insuficiencia card??david congestiva y problemas con la frecuencia card??david. En algunos casos, puede provocar un ataque cerebral.? Vivir con hipotensi??n ortost??aziza?? Cambie de posici??n lentamente de acostado a sentado. Cuando se levante de la cama, si??ntese en elborde de la cama con las piernas hacia abajo solis por lo menos 30??segundos antes de ponerse de pie. [place]ell le da al cuerpo tiempo para ajustarse al cambio de posici??n.? Cu??ndo llamar a saab proveedor de atenci??n m??dica?? Llame a saab proveedor de atenci??n m??dica en cualquiera de los siguientes casos: ??? Mareos, sensaci??n de aturdimiento o desmayos ??? Fiebre de 100.4?F (38?C) o m??s nydia, o seg??n lo ordene el proveedor de atenci??n m??dica ??? S??ntomas que no se alivian o que empeoran ??? Color gigi o byrd en las heces o v??mitos ??? Diarrea o v??mitos que no se detienen ??? Incapacidad de comer o beber ??? Ardor al orinar ??? Orina con olor desagradable ?? Last Reviewed Date: 2020 ?? [id number] [employer]. All rights reserved. This information is not intended as a substitute for professional medical care. Always follow your healthcare professional's instructions. ?? Patient Care team information Care Team Personnel Name: Christen Mcnair RN Position: [facility] RN Member Role: Primary Care Nurse Name: Catherine Morales RN Position: [facility] RN Member Role: Primary Care Nurse Name: Anne Talamantes DO Position: [facility] Outreach Member Role: PCP Address: Address: [address] [place] [address]- Name: Javy Adame RN Position: [facility] RN Member Role: Primary Care Nurse Name: Apurva Batres RN Position: [facility] RN Member Role: Primary Care Nurse Care Team Related Persons Name: MIRIAM CHATTERJEE Address: home [address] [place] [address] Name: TRAE RILEY Address: home [address] [place] [address]
[2024-08-01] MEDS: ceFAZolin Sodium 1 GM VIAL IVPUSH (22:36)
[2024-08-01] MEDS: Insulin Lispro 100 UNIT/ML 3 ML VIAL SUBCUT (22:36)
[2024-08-01] MEDS: Insulin Glargine,Hum.rec.anlog 100 UNIT/ML 10 ML VIAL 10 UNIT SUBCUT (22:36)
--- NOTE | 2024-08-01 23:16 | PC.NURSE ---
Bedside report given to TYESHA Fontaine.
[2024-08-02] VITALS (7 sets, daily range): BP systolic 100–157; BP diastolic 62–82; PULSE 91–115; RESP 14–20; TEMP 36.2–37.4; O2SAT 95–100; BMI 27.4
--- NOTE | 2024-08-02 00:25 | MHC.EDTECH ---
This pct assumed care of Patient at 2300 ,vitals taken ,Patient sleeping ,no apparent distress noted ,will continue to monitor .
[2024-08-02 02:50] LABS: PTT Heparin Drip 63.7 SEC (53-77.9)
[2024-08-02 05:08] LABS: Hematocrit 35.2 % (37.0-47.0); Hemoglobin 11.4 g/dl (12.0-16.0); Mean Corpuscular HGB Conc 32.4 g/dl (31.0-35.0); Mean Corpuscular Hemoglobin 31.1 pg (27.0-33.0); Mean Corpuscular Volume 95.9 fL (80.0-98.0); Mean Platelet Volume 10.3 fL (9.4-12.3); Platelet Count 181 X10*3/uL (160-400); Red Blood Count 3.67 X10*6/uL (4.20-5.50); Red Cell Distribution Width 15.5 % (11.0-16.0); White Blood Count 10.2 X10*3/uL (4.8-10.8)
[2024-08-02 05:13] LABS: INTERNATIONAL NORM RATIO 0.9 (0.9-1.1)
[2024-08-02] MEDS: Omeprazole 20 MG CAPSULE.DR PO (06:13)
[2024-08-02 07:25] LABS: Glucose, Whole Blood 97 mg/dL (60-115)
[2024-08-02] MEDS: Acetaminophen 325 MG TABLET 650 MG PO (08:29)
--- NOTE | 2024-08-02 08:35 | P.CONNP_ITS ---
History of Present Illness Reason for Consult Consult date: 08/02/24 Chief Complaint Chief complaint: Right upper extremity DVT/cellulitis History of Present Illness Narrative: 58 y/o female with a medical history of ESRD on HD (M,W,F in [place]), followed by nephrology Dr Martinez, cardiomyopathy, anemia of chronic disease, secondary hyperparathyroidism, DMII, advanced urothelial cancer receiving chemo, s/p TURBT. Per notes had PICC removed on 07/27, was leaking. Pt to ED on 08/01 for right upper extremity pain, redness. 08/01 RUE doppler due showed nonocclusive thrombus of right IJ. Started on heparin drop with plan to bridge to coumadin. Consult to nephrology for ESRD. H&H 11.4 and 35, potassium 4.4, Ca 9.1, Cr 5.28, BUN 34 and Co2 24 on 08/01 she is due for HD session today she reports her breathing is comfortable, denies chest pain denies pain/difficulty with urination- states does urinate but minimally denies abdominal pain denies lower extremity swelling denies other concerns, symptoms Review of Systems Constitutional: Reports fatigue and Denies headache(s) Denies dizziness and Denies headache(s) Cardiovascular: Denies chest pain, Denies leg edema, Denies lightheadedness and Denies dyspnea Respiratory: Denies dyspnea Gastrointestinal: Denies abdominal pain, Denies constipation, Denies diarrhea, Denies nausea and Denies vomiting Genitourinary: Denies hematuria, Denies dysuria, Denies flank pain and Denies urinary incontinence Musculoskeletal: Denies back pain and Denies arthralgias Skin/Breast: Denies rash Denies dizziness and Denies headache(s) Endocrine: Reports fatigue PMFSH Past Medical History Medical History (Updated 08/02/24 @ 12:33 by Emily Weaver, AMAURY, BOTTLED BEVERAGE INSPECTOR-BC) ESRD (end stage renal disease) on dialysis Mass of bladder Bladder mass Pacemaker History of adenomatous polyp of colon Cardiomyopathy Chronic kidney disease, stage 4 (severe) Hypertension Type 2 diabetes mellitus with diabetic nephropathy Surgical History Surgical History History of ankle surgery History of biopsy Social History Social History Household Members: Children Housing: House Do you presently have visiting nurse or other home services: Yes Alcohol intake: never Patient Tobacco Use Status: Never used Tobacco Smoked in Last 30 Days: No Use of substances other than those prescribed or required for medical reasons: No Currently Displaying Signs/Symptoms of Drug Intoxication Withdrawal: No Have you been hit, kicked, punched, or otherwise hurt by someone within the past year? If so, by whom?: No Advance Directives: No Advance Directives Information Provided: Yes Do you have a plan to hurt others: No Plan Recently lost weight without trying: Yes How much weight loss: 24-33 pounds Nutrition Risks: No Nutritional Risk Patient : No service: No Current occupational status: disabled Gender identity: Female Meds Allergies Allergy/AdvReac Type Severity Reaction Status Date / Time No Known Allergies Allergy Verified 08/01/24 12:25 [No Known Allergies*] Active Medications: Current Medications Acetaminophen (Acetaminophen 325 Mg Tablet) 650 mg PO Q6H PRN PRN Reason: Pain, Mild (Pain Scale 1-3), fever or headache Last Admin: 08/02/24 08:29 Dose: 650 mg Amitriptyline HCl (Amitriptyline Hcl 50 Mg Tablet) 50 mg PO BEDTIME RAYMOND Last Admin: 08/01/24 22:36 Dose: Not Given Calcium Carbonate (Calcium Carbonate 750 Mg Tab.Chew) 750 mg PO Q4H PRN PRN Reason: Heartburn Cefazolin Sodium (Cefazolin Sodium 1 Gm Vial) 1 gm IVPUSH Q12H RAYMOND Last Admin: 08/02/24 10:12 Dose: 1 gm Glucose (Glucose Gel 15 Gm Gel..Gram.) 15 gm PO Q15M PRN; Protocol PRN Reason: per Hypoglycemia Standing Ord. Heparin Sodium (Porcine) (Heparin Sodium,Porcine 5,000 Unit/Ml Vial) 2,700 unit 40 unit/kg (2700 unit) IVPUSH PROTOCOL BOLUS PRN; Protocol PRN Reason: 40 unit/kg - Heparin Protocol Last Admin: 08/02/24 10:09 Dose: 2,700 unit Heparin Sodium (Porcine) (Heparin Sodium,Porcine 5,000 Unit/Ml Vial) 5,300 unit 80 unit/kg (5300 unit) IVPUSH PROTOCOL BOLUS PRN; Protocol PRN Reason: 80 unit/kg - Heparin Protocol Heparin Sodium/Sodium Chloride (Heparin Sodium,Porcine/1/2ns) 25,000 unit in 250 mls @ 0 mls/hr IVCONT .Q0M [facility]; Protocol Last Titration: 08/02/24 10:10 Dose: 16 units/kg/hr, 10.67 mls/hr Dextrose (D10) 250 mls @ 750 mls/hr IV Q15M PRN; Protocol PRN Reason: per Hypoglycemia Standing Ord. Insulin Glargine (Insulin Glargine,Hum.Rec.Anlog 100 Unit/Ml 10 Ml Vial) 10 unit SUBCUT BEDTIME [facility] Last Admin: 08/01/24 22:36 Dose: 10 unit Insulin Human Lispro (Insulin Lispro 100 Unit/Ml 3 Ml Vial) 0 unit SUBCUT QIDACHS [facility]; Protocol Last Admin: 08/02/24 11:13 Dose: Not Given Magnesium Hydroxide (Milk Of Magnesia 30 Ml Oral.Susp) 30 ml PO DAILY PRN PRN Reason: Constipation Melatonin (Melatonin 3 Mg Tablet) 6 mg PO BEDTIME PRN PRN Reason: Insomnia Omeprazole (Omeprazole 20 Mg Capsule.) 20 mg PO BID@0630,1630 [facility] Last Admin: 08/02/24 06:13 Dose: 20 mg Ondansetron HCl (Ondansetron Hcl 4 Mg/2 Ml Vial) 4 mg IVPUSH Q8H PRN PRN Reason: Nausea and Vomiting Polyethylene Glycol (Polyethylene Glycol 3350 17 Gm Powd.Pack) 17 gm PO DAILY PRN PRN Reason: Constipation Sodium Chloride (0.9 % Sodium Chloride Flush 3 Ml Syringe) 3 [facility] Last Admin: 08/02/24 08:30 Dose: Not Given Home Medications ?Medication ?Instructions ?Recorded ?Confirmed ?Last Taken ?Type amitriptyline 50 mg tablet 50 mg PO BEDTIME 10/22/23 08/01/24 07/31/24 History cholecalciferol (vitamin D3) 50 50 mcg PO DAILY 10/22/23 08/01/24 08/01/24 History mcg (2,000 unit) capsule (Vitamin D3) lancets 33 gauge (TRUEplus Lancets) #100 ea 10/22/23 06/28/24 Unknown History omeprazole 20 mg capsule,delayed 20 mg PO BID@0630,1630 10/22/23 08/01/24 08/01/24 History release pen needle, diabetic 32 gauge x #1,200 ea 10/22/23 06/28/24 Unknown History (Pentips) rosuvastatin 40 mg tablet 40 mg PO BEDTIME 10/22/23 08/01/24 07/31/24 History ferrous sulfate 325 mg (65 mg 325 mg PO BEDTIME 04/08/24 08/01/24 07/31/24 History iron) tablet (FeroSul) metoprolol tartrate 50 mg tablet 50 mg PO BID 04/08/24 08/01/24 08/01/24 History cinacalcet 30 mg tablet 30 mg PO MOWEFR 08/01/24 08/01/24 07/31/24 History dapagliflozin propanediol 10 mg 10 mg PO DAILY 08/01/24 08/01/24 08/01/24 History tablet (Farxiga) insulin lispro 100 unit/mL 8 - 18 unit subcut TIDAC 08/01/24 08/01/24 08/01/24 History subcutaneous pen Physical Exam Vital Signs: Last Vital Signs Temp 98.6 F 08/02/24 07:28 Pulse 98 08/02/24 07:28 Resp 17 08/02/24 07:28 BP 142/68 H 08/02/24 07:28 Pulse Ox 98 08/02/24 07:28 O2 Del Method Room Air 08/02/24 07:28 BMI result Body Mass Index 27.4 Const General: no acute distress, alert and awake Resp Effort & Inspection: normal respiratory effort and able to speak in complete sentences Auscultation: clear to auscultation bilaterally Cardio Jugular venous distension: no JVD Rate: regular rate Rhythm: regular rhythm Heart sounds: S1 normal heart sound present and S2 normal heart sound present GI Palpation (GI): Soft to palpation and nontender General: Yes no CVA tenderness Back/Spine/Pelvis Back: no CVA tenderness Skin Lesions: no lesions Rashes: no rashes Extrem General: No edema Results Lab Results 08/02/24 04:12 08/01/24 12:46 Lab results: Chemistry 08/01/24 12:46 Sodium 137 Potassium 4.4 Carbon Dioxide 24 BUN 34 H Creatinine 5.28 H* Calcium 9.1 Hematology 08/01/24 08/02/24 12:46 04:12 WBC 10.8 10.2 Hgb 11.3 L 11.4 L Plt Count 185 181 Assessment and Plan (1) ESRD (end stage renal disease) on dialysis: Status: Acute Plan ESRD on HD here with upper extremity DVT and concern for cellulitis she is due for HD today, will dialyze today H&H is stable at 11/4 and 35.2, no current indication for procrit electrolytes including calcium are within normal limits pt does not have a metabolic acidosis at this time no uremic symptoms appears euvolemic today has right IJ permacath in place oliguric at baseline will continue to follow Discussed with Dr Martinez Procedures Date of Service Date of Service: 08/02/24
--- NOTE | 2024-08-02 08:56 | MHC.CM.PN ---
Patient lives in a house with her Son/HCP/Jerson and her Daughter and she uses a walker to assist with mobility. 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 PCP is Dr. Anne Talamantes.
[2024-08-02 09:52] LABS: PTT Heparin Drip 47.6 SEC (53-77.9)
[2024-08-02] MEDS: Heparin Sodium,Porcine 5,000 UNIT/ML VIAL 2700 UNIT IVPUSH (10:09)
[2024-08-02] MEDS: ceFAZolin Sodium 1 GM VIAL IVPUSH (10:12)
[2024-08-02 11:31] LABS: Glucose, Whole Blood 203 mg/dL (60-115)
--- NOTE | 2024-08-02 14:07 | P.DS_ITS ---
DS: Providers Provider Date of Service: 08/02/24 Date of admission: 08/01/24 19:42 Date of discharge: 08/02/24 Primary care physician: Anne Talamantes DO Consults: 08/02/24 07:42 Consult to Nephrology Routine Consulting Provider: [facility] Reason for consultation: esrd Has provider been notified: No DS: Diagnosis Discharge Diagnosis (1) ESRD (end stage renal disease) on dialysis: Status: Acute (2) Acute internal jugular vein thrombosis: Status: Acute (3) Bladder cancer: Status: Acute DS: Summary Hospital Course Hospital Course: History of presenting illness: Date of Service: 08/01/24 Chief Complaint: Right arm swelling and redness. 58-year-old female with past medical history significant for end-stage renal disease on hemodialysis, cardiomyopathy, anemia of chronic disease, secondary hyperparathyroidism, insulin-dependent diabetes mellitus, and advanced uro thelial cancer currently receiving chemotherapy, status post TURBT, patient was receiving chemotherapy via PICC line but noted to have leakage therefore PICC line removed on July 27, 2 days ago patient noticed redness swelling and discomfort in right upper arm at site of PICC line, therefore came to the emergency room patient denies associated fever chills, no headache, no dizziness, no nausea, no vomiting, no abdominal pain, no neck swelling, no radiation of pain, right upper extremity Doppler study showed nonocclusive thrombus, right internal jugular vein, normal CBC, stable hematocrit 34.3,, sodium 137, potassium 4.4, creatinine 5.28, blood sugar 205 , CRP 0.76, in ED patient received a dose of IV cefazolin and IV heparin and now being admitted to [facility] for further monitoring and treatment of right upper extremity cellulitis and DVT of right internal jugular vein. Hospital course: 58-year-old female with pertinent history of CKD stage 5, cardiomyopathy with EF 20%, anemia due to CKD, secondary hyperparathyroidism, mood disorder, gastroesophageal reflux disease, insulin-dependent diabetes mellitus who presents to the emergency department for evaluation of her right upper extremity swelling redness and discomfort DVT right internal jugular vein, right upper extremity duplex study showed, nonocclusive thrombus right internal jugular vein question chronic, had a PICC line removed right upper arm 5 days prior to presentation, treated with IV heparin, case discussed with Hematology and Nephrology, they recommend to discharge patient home on Eliquis 2.5 mg b.i.d. with close outpatient follow-up with Hematology inform patient about bleeding risks Right upper extremity cellulitis at site of PICC line placement, redness swelling and pain significantly improved overnight will discharge on doxycycline 100 mg b.i.d. x5 days. End-stage renal disease on hemodialysis Wednesdays and Fridays , recommend low-potassium diet and outpatient follow-up with Nephrology for continued hemodialysis. Diabetes mellitus on insulin stable blood sugars recommend to continue diabetic diet dose of Lantus reduced to 25 units and continue sliding scale. Cardiomyopathy with EF 20% continue beta-blockers not on diuretics. Secondary hyperparathyroidism due to chronic kidney disease continue calcitriol. Mood disorder continue home medications Advanced urothelial cancer being followed by Dr. Alcantara, outpatient follow-up with Hematology. Time Attestation Discharge Coordination Time (in mins): 36. Quality: Safe Use of Opioids Does Pt have an Active Cancer Diagnosis on the Problem List?: No Quality: Stroke Does the patient have a stroke diagnosis?: No Physical Exam Vital Signs: Vital Signs: Last Vital Signs Temp 98.6 F 08/02/24 07:28 Pulse 98 08/02/24 07:28 Resp 17 08/02/24 07:28 BP 142/68 H 08/02/24 07:28 Pulse Ox 98 08/02/24 07:28 O2 Del Method Room Air 08/02/24 07:28 BMI result Body Mass Index 27.4 Const: Other: General awake alert x3, sitting comfortably in no acute distress. Neck no JVD. CVS regular rate rhythm, Respiratory lungs clear to auscultation, no respiratory distress, no wheeze, no rhonchi. Gastrointestinal abdomen soft, non tender, bowel sounds audible, no guarding , no rigidity. Extremities no pitting edema. Neuro non focal Right upper extremity localized area of redness, swelling and warmth at site of PICC line removal improved significantly, no tenderness. Left forearm fistula Psych appropriate affect. DS: Data Data Completed and Pending Completed studies during hospitalization [Text1]: Procedures Change Other Device in Trunk Subcutaneous Tissue and Fascia, External Approach (04/08/24) Destruction of Bladder, Via Natural or Artificial Opening Endoscopic (03/03/24) Excision of Bladder, Via Natural or Artificial Opening Endoscopic (03/03/24) Insertion of Infusion Device into Superior Vena Cava, Percutaneous Approach (03/03/24) Insertion of Tunneled Vascular Access Device into Chest Subcutaneous Tissue and Fascia, Percutaneous Approach (03/03/24) Performance of Urinary Filtration, Intermittent, Less than 6 Hours Per Day (04/08/24) Transfusion of Nonautologous Red Blood Cells into Peripheral Vein, Percutaneous Approach (04/08/24) Ultrasonography of Superior Vena Cava, Guidance (03/03/24) Labs on day of discharge: Laboratory Results - last 24 hr 08/01/24 08/01/24 08/01/24 12:46 19:58 21:01 WBC RBC Hgb Hct MCV MCH MCHC RDW Plt Count MPV Absolute Nucleated RBC Nucleated RBC % (auto) PT INR APTT 28.0 aPTT Heparin Protocol 27.6 L POC Glucose 265 H 08/02/24 08/02/24 08/02/24 02:31 04:12 07:16 WBC 10.2 RBC 3.67 L Hgb 11.4 L Hct 35.2 L MCV 95.9 MCH 31.1 MCHC 32.4 RDW 15.5 Plt Count 181 MPV 10.3 Absolute Nucleated RBC 0.000 Nucleated RBC % (auto) 0.0 PT 11.0 INR 0.9 APTT aPTT Heparin Protocol 63.7 D POC Glucose 97 08/02/24 08/02/24 09:14 11:27 WBC RBC Hgb Hct MCV MCH MCHC RDW Plt Count MPV Absolute Nucleated RBC Nucleated RBC % (auto) PT INR APTT aPTT Heparin Protocol 47.6 L D POC Glucose 203 H Discharge Plan Discharge Anticipated Discharge Date/Time: 08/02/24 13:59 Patient Disposition: Home, Self-Care Discharge Diagnosis: Right upper extremity cellulitis Internal jugular vein thrombus End-stage renal disease on hemodialysis Referrals: [facility] [Outside] - 1 Week Anne Talamantes DO [Primary Care Provider] - 1 Week Discharge Medications: New Eliquis 2.5 mg Tablet 2.5 mg PO BID Qty: 60 0RF doxycycline monohydrate 100 mg Capsule 100 mg PO Q12H Qty: 10 0RF Continued insulin lispro 100 unit/mL insulin pen 8 - 18 unit subcut TIDAC Rx Instructions: INJECT 8-18 UNITS SUBCUTANEOUSLY THREE TIMES DAILY BEFORE MEALS DIRECTED cinacalcet 30 mg tablet 30 mg PO MOWEFR Rx Instructions: TAKE 1 TABLET BY MOUTH 3 TIMES PER WEEK ON WEDNESDAY, WEDNESDAY, AND WEDNESDAY IN THE EVENING dapagliflozin propanediol [Farxiga] 10 mg tablet 10 mg PO DAILY sennosides-docusate sodium [Senna with Docusate Sodium] 8.6-50 mg Tablet 1 tab-cap PO BEDTIME Qty: 30 2RF ferrous sulfate [FeroSul] 325 mg (65 mg iron) tablet 325 mg PO BEDTIME metoprolol tartrate 50 mg tablet 50 mg PO BID (DME) lancets [TRUEplus Lancets] 33 gauge misc See Rx Instructions .ROUTE .MEDSUPPLY Qty: 100 Rx Instructions: As directed (DME) pen needle, diabetic [Pentips] 32 gauge x 5/32 needle See Rx Instructions .ROUTE DIRECTED Qty: 1200 Rx Instructions: As directed omeprazole 20 mg capsule,delayed release(DR/EC) 20 mg PO BID@0630,1630 amitriptyline 50 mg tablet 50 mg PO BEDTIME cholecalciferol (vitamin D3) [Vitamin D3] 50 mcg (2,000 unit) capsule 50 mcg PO DAILY rosuvastatin 40 mg tablet 40 mg PO BEDTIME aspirin 81 mg tablet,delayed release (DR/EC) 81 mg PO DAILY Changed insulin glargine [Lantus Solostar U-100 Insulin] 100 unit/mL (3 mL) insulin pen 25 unit subcut BEDTIME Qty: 15 0RF Discharge Orders: Discharge Order (Routine); Ordered 08/02/24 Ordered By: Kelli Bryant Diet: Diabetic diet Activity on Discharge: As tolerated Stand Alone Forms: Patient Portal Discharge page Print Language: Kyrgyz Care Plan Goals: Right upper extremity cellulitis take doxycycline 1 tablet twice daily for total 5 days Take Eliquis 2.5 mg 1 tablet twice daily for right internal jugular vein thrombosis Continue all home medications as before Health Concerns: Diabetes mellitus stable blood sugars dose of Lantus reduced to 25 units at bedtime follow diabetic diet Plan of Treatment: Outpatient follow-up with Dr. Coleman, continue hemodialysis Wednesday Outpatient follow-up with Dr. Alcantara call for appointment Assessment: As above
--- NOTE | 2024-08-02 14:11 | MHC.CM.PN ---
Patient has been medically cleared for dc to home today, with services. Patient is active with [facility], who has been notified of today's dc.
[2024-08-02] MEDS: Doxycycline Monohydrate 100 MG CAPSULE PO (14:47)
== END 2024-08-02 15:36 | disposition home health service (06) | DRG 197 ==
LOC: HO.ED 18:19 → HO.EDOVER 21:11 → HO.IMC 08-02 04:28
PROVIDERS: Registered Nurse Emergency; Admitting Provider Hospitalist; Emergency Provider Emergency Medicine; PCP Family Medicine; Visit Provider Hospitalist
DX: I82.C11 Acute embolism and thrombosis of right internal jugular vein (principal); I12.0 Hypertensive chronic kidney disease with stage 5 chronic kidney disease or end stage renal disease; I42.9 Cardiomyopathy, unspecified; N25.81 Secondary hyperparathyroidism of renal origin; N18.6 End stage renal disease; K21.9 Gastro-esophageal reflux disease without esophagitis; C67.9 Malignant neoplasm of bladder, unspecified; E11.22 Type 2 diabetes mellitus with diabetic chronic kidney disease; L03.113 Cellulitis of right upper limb; F39 Unspecified mood [affective] disorder; Z99.2 Dependence on renal dialysis; Z79.4 Long term (current) use of insulin; Z79.899 Other long term (current) drug therapy
CPT/HCPCS: 36415; 71046; 80053; 82947; 85025; 85027; 85610; 85652; 85730; 86140; 90999; 93971; 99285; J0690; J1644

== ENCOUNTER → 2024-08-01 12:24 | Outpatient (BNV) | payer MEDICAID, SELFPAY | PROVIDERS: PCP Family Medicine; Visit Provider Radiology Diagnostic Radiology | DX: I82.C11 Acute embolism and thrombosis of right internal jugular vein (principal) | CPT/HCPCS: 71046; 93971 ==

== ENCOUNTER → 2024-08-01 19:42 | Outpatient (BNV) | payer MEDICAID, SELFPAY | PROVIDERS: Admitting Provider Hospitalist; Emergency Provider Emergency Medicine; PCP Family Medicine; Visit Provider Hospitalist | DX: N18.6 End stage renal disease (principal); Z99.2 Dependence on renal dialysis; I82.C19 Acute embolism and thrombosis of unspecified internal jugular vein; C67.9 Malignant neoplasm of bladder, unspecified | CPT/HCPCS: 99223; 99239 ==

== ENCOUNTER → 2024-08-01 19:42 | Outpatient (BNV) | payer MEDICAID, SELFPAY | PROVIDERS: Admitting Provider Hospitalist; Emergency Provider Emergency Medicine; PCP Family Medicine; Visit Provider Nurse Practitioner Family | DX: N18.6 End stage renal disease (principal); Z99.2 Dependence on renal dialysis | CPT/HCPCS: 99222 ==

== ENCOUNTER 2024-08-07 17:11 | Emergency (ER) | payer MEDICAID, SELFPAY ==
--- NOTE | ~2024-08-07 | XR_ITS ---
EXAMINATION: XR CHEST CLINICAL INFORMATION: Missed hemodialysis COMPARISON: Chest radiograph 08/21/2024. TECHNIQUE: Frontal view of the chest was obtained. FINDINGS: Left pectoral AICD pacer is noted. A right internal jugular dual lumen catheter terminates projection with the right atrium. The cardiac silhouette is normal in size. Mild aortic calcific atherosclerosis. No effusions or pneumothoraces identified. Normal pattern of pulmonary vasculature. XR/XR chest 1V IMPRESSION: *No acute cardiopulmonary abnormalities. No evidence of active pulmonary edema. Electronically signed by: Scott Qureshi MD 08/07/2024 11:58 PM [facility]
--- NOTE | ~2024-08-07 | IR_ITS ---
CLINICAL HISTORY: Poorly functioning dialysis catheter. The patient presents to interventional radiology for replacement of a tunneled central venous catheter for hemodialysis. PROCEDURES: 2. Replacement of a 14.5 fr 27 cm tunneled, dual-lumen hemodialysis catheter. Clinician: Juan Biggs PA-C MEDICATIONS: -Fentanyl 25 mcg, Lidocaine 1% 10 mL SQ. -Antibiotics: Ancef -For additional details, please see nursing flowsheet. COMPLICATIONS: None. ESTIMATED BLOOD LOSS: <5 ml SPECIMENS: None FLUOROSCOPY TIME: 6.7 min PROCEDURE NOTE: The procedure, risks, benefits, and alternatives were carefully explained to patient, and written informed consent was obtained. The patient was placed supine on the fluoroscopy table. A preliminary fluoroscopic image of the chest demonstrated the tip of the catheter positioned in the high right atrium. A timeout was performed. The right neck and chest was prepped and draped in usual sterile fashion. Local anesthesia was administered to the right chest with lidocaine. The catheter was gently retracted to dislodge the subcutaneous cuff. The 0.035 stiff Glidewire was inserted through the catheter and advanced into the IVC. The catheter was removed entirely over the wire. [id number], a new 27 cm permacath was advanced with the tip positioned in the deep right atrium. The wire was removed. The catheter was tested, flushed, and sutured to the skin. A permanent fluoroscopic image of the chest was saved to PACS. The catheter ports were packed with heparin per routine protocol. The patient was stable after the procedure and was transferred back to the emergency department. This procedure was performed with a dedicated nurse and continuous monitoring of vital signs. IR/IR dialysis circuit perm vascu IMPRESSION: Replacement of a tunneled hemodialysis catheter in the right internal jugular vein. PLAN: -The catheter may be used immediately. This procedure was performed by Juan Biggs PA-C, and directly supervised by Dr. Contreras. Electronically signed by: Raulito Contreras MD 08/10/2024 01:29 PM [facility]
[2024-08-07 17:27] VITALS: BP 145/45; PULSE 84; RESP 20; TEMP 37; O2SAT 98; BMI 27.8
--- NOTE | 2024-08-07 17:27 | ED_ITS ---
HPI - General Adult General Chief complaint: General Medical Stated complaint: catheter not working - sent from dialysis Time Seen by Provider: 08/07/24 21:45 Source: patient, old records reviewed and flight hostess Mode of arrival: ambulatory Limitations: no limitations History of Present Illness ED Provider: PAT ATKINSON narrative: 58 yo female with PMH Of ESRD via R permacath on MWF last full session Wednesday, cardiomyopathy EF 20%, advanced bladder cancer, on eliquis BID for DVT, DM, HTN, anemia, HLD here with c/o going to HD today and permacath not working - IR replaced catheter 06/20 for poorly functioning line. She denies any complaints right now is sitting in a chair and eating. She states she is here to get a new line. She is compliant with medications MD complaint: HD line not working Onset (ago): day(s) (1) Location: chest Radiation: non-radiation Severity: mild Relieving factors: none Exacerbating factors: none Associated symptoms: denies other symptoms Treatments prior to arrival: none Related Data Home Medications ?Medication ?Instructions ?Recorded ?Confirmed amitriptyline 50 mg tablet 50 mg PO BEDTIME 10/22/23 08/01/24 cholecalciferol (vitamin D3) 50 50 mcg PO DAILY 10/22/23 08/01/24 mcg (2,000 unit) capsule (Vitamin D3) lancets 33 gauge (TRUEplus Lancets) #100 ea 10/22/23 06/28/24 omeprazole 20 mg capsule,delayed 20 mg PO BID@0630,1630 10/22/23 08/01/24 release pen needle, diabetic 32 gauge x #1,200 ea 10/22/23 06/28/24 (Pentips) rosuvastatin 40 mg tablet 40 mg PO BEDTIME 10/22/23 08/01/24 ferrous sulfate 325 mg (65 mg 325 mg PO BEDTIME 04/08/24 08/01/24 iron) tablet (FeroSul) metoprolol tartrate 50 mg tablet 50 mg PO BID 04/08/24 08/01/24 cinacalcet 30 mg tablet 30 mg PO MOWEFR 08/01/24 08/01/24 dapagliflozin propanediol 10 mg 10 mg PO DAILY 08/01/24 08/01/24 tablet (Farxiga) insulin lispro 100 unit/mL 8 - 18 unit subcut TIDAC 08/01/24 08/01/24 subcutaneous pen Previous Rx's ?Medication ?Instructions ?Recorded sennosides 8.6 mg-docusate sodium 1 tab-cap PO BEDTIME #30 tabs 05/16/24 50 mg tablet (Senna with Docusate Sodium) apixaban 2.5 mg tablet (Eliquis) 2.5 mg PO BID #60 tabs 08/02/24 doxycycline monohydrate 100 mg 100 mg PO Q12H #10 caps 08/02/24 capsule insulin glargine 100 unit/mL (3 25 unit (0.25 mL) subcut BEDTIME 08/02/24 mL) subcutaneous pen (Lantus #15 mL Solostar U-100 Insulin) Allergies Allergy/AdvReac Type Severity Reaction Status Date / Time No Known Allergies Allergy Verified 08/07/24 17:29 [No Known Allergies*] Review of Systems 2 Review of Systems: Constitutional : No Fever, No Chills, No Fatigue ENT/Mouth : No sore throat, No Rhinorrhea Eyes: No Eye Pain, No Swelling, No Redness Cardiovascular : No Chest Pain, No SOB, No Dyspnea on Exertion Respiratory : No Cough, No Sputum Gastrointestinal : No Nausea, No Vomiting, No Diarrhea, No abdominal Pain Genitourinary : No Dysuria, No Urinary Frequency, No Hematuria, Musculoskeletal : No joint pain, No Myalgias, No Joint Swelling Skin : No Skin Lesions, No rash Neuro : No Weakness, No Numbness, No Dizziness, no Headache Psych : No Anxiety/Panic, No Depression All other systems reviewed and are negative PMFSH Past Medical History Attestation statement: The following information was validated with the patient. Source: old records reviewed Medical History ESRD (end stage renal disease) on dialysis Mass of bladder Bladder mass Pacemaker History of adenomatous polyp of colon Cardiomyopathy Chronic kidney disease, stage 4 (severe) Hypertension Type 2 diabetes mellitus with diabetic nephropathy Surgical History History of ankle surgery History of biopsy Social History Social History Household Members: Children Housing: House Do you presently have visiting nurse or other home services: Yes Alcohol intake: never Patient Tobacco Use Status: Never used Tobacco service: No Current occupational status: disabled Gender identity: Female Physical Exam ED Vital Signs: Vital Signs - 24 hr 08/07/24 17:27 08/08/24 00:16 08/08/24 02:45 Temperature 98.6 F 98.4 F 98.2 F Pulse Rate 84 86 72 Respiratory Rate 20 16 16 Blood Pressure 145/45 H 176/86 H 162/70 H Pulse Oximetry 98 97 96 Oxygen Delivery Method Room Air Room Air Room Air Oxygen Flow Rate 08/08/24 06:27 08/08/24 08:11 08/08/24 14:00 Temperature 98.2 F 98.3 F Pulse Rate 92 93 92 Respiratory Rate 16 16 Blood Pressure 145/75 H 151/78 H 195/77 H Pulse Oximetry 95 97 99 Oxygen Delivery Method Room Air Room Air Room Air Oxygen Flow Rate 08/08/24 14:38 08/08/24 14:38 08/08/24 14:43 Temperature 98.3 F 98.3 F Pulse Rate 93 91 Respiratory Rate 19 16 17 Blood Pressure 196/72 H 180/74 H Pulse Oximetry 99 97 Oxygen Delivery Method Room Air Room Air Oxygen Flow Rate 08/08/24 14:48 08/08/24 14:53 Temperature 98.3 F 98.3 F Pulse Rate 91 103 H Respiratory Rate 17 17 Blood Pressure 177/74 H 177/74 H Pulse Oximetry 86 L 97 Oxygen Delivery Method Nasal Cannula Nasal Cannula Oxygen Flow Rate 2 2 BMI result Body Mass Index 27.8 Appearance: Alert. Oriented X3. No acute distress. Eyes: Pupils equal, round and reactive to light. ENT: Pharynx normal. Neck: Normal inspection. Neck supple. CVS: Normal heart rate and rhythm. Pulses normal. Chest: no swelling, rash or drainage noted on catheter. No ttp Respiratory: No respiratory distress. Breath sounds normal. Abdomen: Soft and nontender. Skin: Skin warm and dry. Normal skin color. Normal skin turgor. Extremities: No lower extremity edema. No calf ttp Neuro: Oriented X 3. No motor deficit. No sensory deficit. Course Course Course Narrative: RME performed by Janee Zarate PA-C. Patient is a 58 year old assigned female at presenting to the emergency department with a non operational dialysis catheter. Patient states that she went to get dialysis and they discovered that her catheter is not working. Patient states that her last dialysis was 08/04/2024. Patient's customer quality engineer is Dr. Martinez and she was sent here to have her catheter replaced and to be dialyzed. Detailed physical exam and review of systems are deferred to the supervisor decorating. Labs ordered. Patient placed back in the waiting room pending room availability and results. Reevaluation(s) Reevaluation #1: I received patient in sign out from over night provider pending IR consultation, repeat potassium, and CM/ disposition. Per rafael from case management, patient is unable to be transferred to her dialysis facility for dialysis today as their schedule as full. she has not been dialyzed since her session on Wednesday (5 days ago). she is asymptomatic. On repeat labs, there are no acute electrolyte abnormalities. potassium is wnl and improved since yesterday. she was seen by IR today where her permacath was replaced under fluoro followed by 1000 units of heparin. patient was found to tolerate the procedure well however was noted to have multiple small runs of V-tach during wiring of PermCath. Herrera vazquez IR PA aware during procedure. Patient remained in asymptomatic throughout procedure. Shortly after, patient began complaining of a dry cough that was not present prior to the procedure. no other complaints. i do see that patient had a venous duplex of her RUE on 08/01/24 which shows nonocclussive thrombus in the right IVJ - I do not feel as though this would be contributing to her cough. I obtained repeat EKG on arrival back to the ED showing atrial sensed ventricular paced rhythm at a rate of 95 bpm. no acute ischemic changes. she is well appearing. her vitals are stable. at this time I feel patient is stable for discharge home with plan to resume dialysis tomorrow. Patient has remained stable throughout ED visit today. Discussed worrisome signs and symptoms and when to return to the ED. All questions answered at this time. Patient is agreeable with disposition and stable for discharge. Time: 15:41 Medications Administered Generic Name Dose Route Start Last Admin Trade Name Freq PRN Reason Stop Dose Admin Fentanyl 25 mcg 08/08/24 13:34 08/08/24 14:38 Fentanyl Citrate/Pf 100 Mcg/2 Ml Vial IVPUSH 08/08/24 15:35 25 mcg Q5M PRN Administration sedation per intraop request by provider Protocol Discontinued Medications Generic Name Dose Route Start Last Admin Trade Name Gino PRN Reason Stop Dose Admin Cefazolin Sodium/Dextrose 2 gm in 50 mls @ 100 mls/hr 08/08/24 13:35 08/08/24 15:02 Ancef IV 08/08/24 14:04 Infused PREOP ONE Infusion Medical Decision Making Medical Decision Making [facility] Narrative: 58 yo female with PMH Of ESRD via R permacath on MWF last full session Wednesday, cardiomyopathy EF 20%, advanced bladder cancer, on eliquis BID, DM, HTN, anemia, HLD here with c/o HD line not working in chest. She has no complaints no signs of infection at this time will consult IR, hospitalist and CM. Has no immediate HD needs. Differential Diagnosis Differential Diagnoses: The differential diagnosis associated with the presentation includes blocked catheter, abnormal lytes Admission/Observation Consideration of admission/observation: Escalation of care including admission/observation considered physician observation started at 1027pm pending IR, CM input Consult Healthcare Provider did request admit via hospitalist but they felt getting line in AM from IR and possible transfer to HD center via CM would be more appropriate Lab Data [facility] Lab Attestation statement: I reviewed the patient's lab results. 08/07/24 18:21 08/08/24 12:49 Labs: Lab Results 08/07/24 08/07/24 08/08/24 Range/Units 18:21 23:03 12:49 WBC 6.7 (4.8-10.8) X10*3/uL RBC 3.14 L (4.20-5.50) X10*6/uL Hgb 9.9 L (12.0-16.0) g/dl Hct 30.0 L (37.0-47.0) % MCV 95.5 (80.0-98.0) fL MCH 31.5 (27.0-33.0) pg MCHC 33.0 (31.0-35.0) g/dl RDW 15.9 (11.0-16.0) % Plt Count 137 L (160-400) X10*3/uL MPV 10.5 (9.4-12.3) fL Immature Gran % (Auto) 0.1 (0.0-0.4) % Neut % (Auto) 66.5 (45-73) % Lymph % (Auto) 23.4 (20-40) % Mariposa % (Auto) 7.2 (2-11) % Eos % (Auto) 1.9 (0-4) % Baso % (Auto) 0.9 (0-2) % Lymph # (Auto) 1.6 (1.2-4.9) X10*3/uL [place]osa # (Auto) 0.5 (0.1-1.2) X10*3/uL Eos # (Auto) 0.1 (0.0-0.4) X10*3/uL Baso # (Auto) 0.1 (0.0-0.2) X10*3/uL Abs Immat Gran (auto) 0.01 (0.00-0.03) X10*3/uL Absolute Neuts (auto) 4.4 (2.0-8.3) x10*3/uL Absolute Nucleated RBC 0.000 (0.0-0.012) X10*3/uL Nucleated RBC % (auto) 0.0 (0.0-0.2) /100WBC PT 12.4 (10.9-12.4) SEC INR 1.1 (0.9-1.1) Sodium 139 138 (135-145) mmol/L Potassium 5.0 4.5 (3.3-5.1) mmol/L Chloride 105 104 (96-108) mmol/L Carbon Dioxide 21 L 19 L (22-29) mmol/L Anion Gap 18 20 (12-20) BUN 59 H 62 H (9-16) mg/dL Creatinine 7.96 H* 7.99 H* (0.5-1.4) mg/dL Estim Creat Clear Calc 6.5 6.5 Estimated GFR 5 5 Random Glucose 158 H 156 H (60-115) mg/dL Calcium 8.9 8.5 (8.4-10.2) mg/dL Magnesium 1.7 (1.6-2.6) mg/dL Total Bilirubin 0.4 (0.0-1.0) mg/dL AST 24 (5-31) U/L ALT 10 (0-31) U/L Alkaline Phosphatase 73 (39-117) U/L Total Protein 6.9 (6.5-8.0) g/dL Albumin 3.4 L (3.5-5.0) g/dL Independent Interpretation I performed an independent interpretation of an: Plain X-Ray Radiology Impression Discussion of test interpretation with radiology: I have reviewed the radiologist's reading. External Record Review External record reviewed: Inpatient record and Outpatient record Discharge Plan Discharge Clinical Impression: ESRD (end stage renal disease) Patient Disposition: Home, Self-Care Instructions: End Stage Kidney Disease (ED), Perma-cath Placement (DC) Additional Instructions: You were evaluated in the ED due to complications with your perma-cath. Your PermCath was replaced by Interventional Radiology today. You tolerated this procedure well. Your dialysis facility was unable to fit you into their schedule today however we have reviewed your blood work and your electrolytes are all within normal range. Please resume your dialysis as scheduled tomorrow. Return with new or worsening symptoms. In the case of an emergency call 911. Prescriptions: No Action insulin lispro 100 unit/mL insulin pen 8 - 18 unit subcut TIDAC Rx Instructions: INJECT 8-18 UNITS SUBCUTANEOUSLY THREE TIMES DAILY BEFORE MEALS DIRECTED cinacalcet 30 mg tablet 30 mg PO MOWEFR Rx Instructions: TAKE 1 TABLET BY MOUTH 3 TIMES PER WEEK ON WEDNESDAY, WEDNESDAY, AND WEDNESDAY IN THE EVENING dapagliflozin propanediol [Farxiga] 10 mg tablet 10 mg PO DAILY insulin glargine [Lantus Solostar U-100 Insulin] 100 unit/mL (3 mL) insulin pen 25 unit subcut BEDTIME Qty: 15 0RF doxycycline monohydrate 100 mg Capsule 100 mg PO Q12H Qty: 10 0RF Eliquis 2.5 mg Tablet 2.5 mg PO BID Qty: 60 0RF sennosides-docusate sodium [Senna with Docusate Sodium] 8.6-50 mg Tablet 1 tab-cap PO BEDTIME Qty: 30 2RF ferrous sulfate [FeroSul] 325 mg (65 mg iron) tablet 325 mg PO BEDTIME metoprolol tartrate 50 mg tablet 50 mg PO BID (DME) lancets [TRUEplus Lancets] 33 gauge misc See Rx Instructions .ROUTE .MEDSUPPLY Qty: 100 Rx Instructions: As directed (DME) pen needle, diabetic [Pentips] 32 gauge x 5/32 needle See Rx Instructions .ROUTE DIRECTED Qty: 1200 Rx Instructions: As directed omeprazole 20 mg capsule,delayed release(/EC) 20 mg PO BID@0630,1630 amitriptyline 50 mg tablet 50 mg PO BEDTIME cholecalciferol (vitamin D3) [Vitamin D3] 50 mcg (2,000 unit) capsule 50 mcg PO DAILY rosuvastatin 40 mg tablet 40 mg PO BEDTIME Referrals: Anne Talamantes DO [Primary Care Provider] - Print Language: Kazakh
[2024-08-07 18:24] LABS: MANUAL DIFF FLAG NO
[2024-08-07 18:28] LABS: Basophils Absolute Auto 0.1 X10*3/uL (0.0-0.2); Basophils Percent Auto 0.9 % (0-2); Eosinophils Absolute Auto 0.1 X10*3/uL (0.0-0.4); Eosinophils Percent Auto 1.9 % (0-4); Hemoglobin 9.9 g/dl (12.0-16.0); Imm Gran Abs Auto 0.01 X10*3/uL (0.00-0.03); Imm Gran Pct Auto 0.1 % (0.0-0.4); Lymphocytes Absolute Auto 1.6 X10*3/uL (1.2-4.9); Lymphocytes Percent Auto 23.4 % (20-40); Mean Corpuscular Hemoglobin 31.5 pg (27.0-33.0); Mean Corpuscular Volume 95.5 fL (80.0-98.0); Mean Platelet Volume 10.5 fL (9.4-12.3); Monocytes Absolute Auto 0.5 X10*3/uL (0.1-1.2); Monocytes Percent Auto 7.2 % (2-11); Neutrophils Absolute Auto 4.4 x10*3/uL (2.0-8.3); Neutrophils Percent Auto 66.5 % (45-73); Platelet Count 137 X10*3/uL (160-400); Red Blood Count 3.14 X10*6/uL (4.20-5.50); Red Cell Distribution Width 15.9 % (11.0-16.0); White Blood Count 6.7 X10*3/uL (4.8-10.8)
[2024-08-07 18:44] LABS: Alanine Aminotransferase 10 U/L (0-31); Albumin Level 3.4 g/dL (3.5-5.0); Alkaline Phosphatase 73 U/L (39-117); Anion Gap 18 (12-20); Aspartate Amino Transferase 24 U/L (5-31); Bilirubin Total 0.4 mg/dL (0.0-1.0); Blood Urea Nitrogen 59 mg/dL (9-16); Calcium 8.9 mg/dL (8.4-10.2); Carbon Dioxide 21 mmol/L (22-29); Chloride 105 mmol/L (96-108); Creatinine Clr Calc Pharmacy 6.5; Estimated Glomerular Filt Rate 5; Glucose Random 158 mg/dL (60-115); Magnesium 1.7 mg/dL (1.6-2.6); Sodium 139 mmol/L (135-145); Total Protein 6.9 g/dL (6.5-8.0)
[2024-08-07 23:15] LABS: INTERNATIONAL NORM RATIO 1.1 (0.9-1.1); Prothrombin Time 12.4 SEC (10.9-12.4)
[2024-08-08] VITALS (11 sets, daily range): BP systolic 145–196; BP diastolic 70–86; PULSE 72–103; RESP 16–19; TEMP 36.6–36.9; O2SAT 86–99
--- NOTE | 2024-08-08 00:27 | MHC.EDTECH ---
This pct assumed care of Patient at 0000 ,vitals taken and Patient belongings list done ,Call hope within Pt reach .
--- NOTE | 2024-08-08 12:12 | PC.NURSE ---
Per SAUNDRA Weinstien, pt will go to IR at 1300
[2024-08-08 13:18] LABS: Anion Gap 20 (12-20); Blood Urea Nitrogen 62 mg/dL (9-16); Calcium 8.5 mg/dL (8.4-10.2); Carbon Dioxide 19 mmol/L (22-29); Chloride 104 mmol/L (96-108); Creatinine Clr Calc Pharmacy 6.5; Estimated Glomerular Filt Rate 5; Glucose Random 156 mg/dL (60-115); Potassium 4.5 mmol/L (3.3-5.1); Sodium 138 mmol/L (135-145)
--- NOTE | 2024-08-08 14:20 | PC.NURSE ---
pt taken to IR
--- NOTE | 2024-08-08 14:27 | MHC.CM.ED ---
Received case management consult overnight from Dr Durán. Patient was brought to ER from [facility] due to HD catheter not working. T/W spoke with Dahlia at HD via telephone at [phone]. Dahlia verifies patient receives HD Wed, and Wednesday. They would not be able to fit patient into their schedule today. Patient would need to resume her Wednesday, , Wednesday schedule. Lizzy ARGUELLO aware. After patient receives new dialysis catheter repeats labs will be drawn. If potassium is not elevated patient will d/c home and resume dialysis schedule. Met with patient and fermenting cellar dropper. Patient lives with her daughter, uses a walker for mobility and is active with [facility]. Patient aware of potential discharge plan. Continue to monitor for d/c needs.
[2024-08-08] MEDS: ceFAZolin Sodium/Dextrose,Iso 2 GM/50 ML PIGGYBACK IV (14:32)
[2024-08-08] MEDS: fentaNYL citrate/PF 100 MCG/2 ML VIAL 25 MCG IVPUSH (14:38)
--- NOTE | 2024-08-08 14:56 | PC.NURSE ---
pt had mult runs of V-Tach consisting of 4-6 beats during wiring of permacath D. vazquez aware. pt remained asymptomatic
--- NOTE | 2024-08-08 14:58 | PC.NURSE ---
1000 units heparin instilled in permacath by Miguel.pt [facility]
--- NOTE | 2024-08-08 15:02 | PM.PROC ---
Brief Operative Note Date of procedure: 08/08/24 Pre-op diagnosis: Non functioning permacath Post-op diagnosis: same Procedure: Right IJ 27 cm permacath replaced under fluoro. Tip positioned in deep right atrium. No immediate complications. Ok for immediate use.
--- NOTE | 2024-08-08 15:15 | PC.NURSE ---
report received from TYESHA Reese- sts permacath was replaced. Heparin instilled. pt rec 25mcg of fentanyl during procedure. Of note, pt has developed dry cough. SAUNDRA Weinstein notified- pt to be transported back to [facility]
--- NOTE | 2024-08-09 | ECG_ITS ---
Test Reason : arrythmia Blood Pressure : / mmHG Vent. Rate : 095 BPM Atrial Rate : 095 BPM P-R Int : 132 ms QRS Dur : 118 ms QT Int : 394 ms P-R-T Axes : 067 -14 114 degrees QTc Int : 495 ms Atrial-sensed ventricular-paced rhythm Abnormal ECG When compared to the previous EKG of No significant changes seen Referred By: Aicha Durán Electronically Signed By:Antione Jaffe
== END 2024-08-08 17:00 | disposition home or self-care (01) ==
PROVIDERS: Physician Assistant Medical; Student in an Organized Health Care Education/Training Program; Emergency Provider Emergency Medicine; PCP Family Medicine
DX: N18.6 End stage renal disease (principal); I49.9 Cardiac arrhythmia, unspecified; R94.31 Abnormal electrocardiogram [ECG] [EKG]; Z79.899 Other long term (current) drug therapy
CPT/HCPCS: 36415; 36581; 36909; 71045; 80048; 80053; 83735; 85025; 85610; 93005; 96365; 96375; 99284; C1750; C1769; J0690; J3010

== ENCOUNTER → 2024-08-07 18:19 | Outpatient (BNV) | payer MEDICAID, SELFPAY | PROVIDERS: Emergency Provider Emergency Medicine; PCP Family Medicine; Visit Provider Physician Assistant Surgical | DX: N18.6 End stage renal disease (principal) | CPT/HCPCS: 36581; 77001 ==

== ENCOUNTER → 2024-08-09 | Outpatient (BNV) | payer MEDICAID, SELFPAY | PROVIDERS: Emergency Provider Emergency Medicine; PCP Family Medicine; Visit Provider Internal Medicine Cardiovascular Disease | DX: R94.31 Abnormal electrocardiogram [ECG] [EKG] (principal) | CPT/HCPCS: 93010 ==

== ENCOUNTER 2024-08-15 11:28 | Day surgery (SDC) | payer MEDICAID, SELFPAY ==
[2024-08-15] VITALS (26 sets, daily range): BP systolic 153–209; BP diastolic 37–94; PULSE 82–89; RESP 8–18; TEMP 36.4–36.7; O2SAT 97–100; BMI 27.8
--- NOTE | ~2024-08-15 | IR_ITS ---
History: Patient requiring port for long-term central venous access. The patient has symptoms of SVC occlusion related to the presence of a pacer and dialysis catheter currently within the superior vena cava. She therefore presents for placement of a translumbar port. Procedure performed: 1. Ultrasound-guided catheterization of the right popliteal vein. 2. Catheterization of the inferior vena cava and right atrium from the right popliteal vein access. 3. Ultrasound and fluoroscopic guided placement of a translumbar port via the inferior vena cava. Physician: Christophe Espinal MD Anesthesia: IV moderate sedation with intravenous fentanyl and versed was administered under my direct supervision with continuous physiologic monitoring for a total of 45 minutes. 20 mL of 1% lidocaine was additionally used for local anesthesia. Specimen: None Drain: None Estimated blood loss: Minimal Complications: None Procedure in detail: Informed and written consent was obtained and placed in the patient's chart. The patient was positioned prone on the angiography table with sterile preparation of the right back and flank as well as the right popliteal fossa. Ultrasound of the right popliteal fossa showed a patent popliteal vein. Under ultrasound, 1% lidocaine was injected subcutaneously and extended to the vein. A small incision was made in the skin with a #11 blade. Through the incision and under ultrasound guidance with permanent recordings of direct visualization of needle entry into the vein, the right popliteal vein was catheterized in an antegrade fashion. Over a wire, a flush catheter was advanced to the inferior vena cava and subsequently the right atrium. This was placed for marking purposes to help guide our access to the inferior vena cava. Next, over the patient's right flank at the planned location for access to the inferior vena cava, 1% lidocaine was injected subcutaneously and extended to the deep soft tissues. A small incision was made in the skin with a #11 blade. From a slightly lateral approach, through the incision and under progressive fluoroscopic guidance, a Chiba needle was advanced directly to the inferior vena cava. We used the marker pigtail catheter to guide us. Blood was aspirated through the needle and an injection of contrast for a venogram showed that we were within the inferior vena cava. Using the AccuStick transitional dilator, we exchanged for an Amplatz wire over which the peel-away sheath of the port was placed. At a location superolateral to the access site and superficial to the rib cage for support, 1% lidocaine was injected subcutaneously. A small incision was made with a #10 blade and blunt dissection was performed to create a pocket for the port. The port was inserted into the pocket and the catheter tunneled to the peel-away sheath. It was trimmed to measured length and inserted into the peel-away sheath. The pocket was irrigated with antibiotic solution and closed with interrupted 2-0 Vicryl suture and overlying Dermabond. The small access incision was closed with Dermabond. The new port was tested and flushed and aspirated appropriately. It was locked with heparin and an overlying sterile dressing was then placed. Summary: Successful placement of a translumbar port via the inferior vena cava as described in detail above. Electronically signed by: Juan Pablo Espinal MD 08/15/2024 04:07 PM [facility]
[2024-08-15 12:36] LABS: Glucose, Whole Blood 152 mg/dL (60-115)
--- NOTE | 2024-08-15 12:44 | PC.NURSE ---
Inna FU Rn aware that a message was sent to Juan Biggs that an antibiotic has not been ordered yet for this patient and she will pull it and that patient took Eliquis yesterday.
--- NOTE | 2024-08-15 13:36 | MHC.SHP ---
Pre-Procedural Eval Section A - 24 Hr Update-Section A only Date of Service: 08/15/24 Section B - Complete if H&P > 30 days Chief Complaint: TRANSLUMBAR PORT: MALIGNAT NEOPLASM OF BLADDER Details of Present Illness: 58 y/o female with bladder cancer, ESRD on HD who presents with poor iv access. Relevant Family History (Specify if Yes): No Relevant Social History: None Present Medications: see Short Stay Collaborative assessment Medical History: Significant History History of Previous Operations: Relevant previous surgery/procedure and date(s) Allergies: Allergies Allergy/AdvReac Type Severity Reaction Status Date / Time No Known Allergies Allergy Verified 08/07/24 17:29 [No Known Allergies*] Review of Systems Sugical H&P ROS: Negative: Constitution, Cardiovascular and Respiratory Exam Surgical H&P Exam: Normal: Heart, Normal: Lungs and Normal: Neurological and Significant Findings: Skin (Permcath in right chest, defibrillator in left chest) Plan 58 y/o female with bladder cancer and poor iv access. -Translumbar port given dialysis catheter and left defibrillator Time Spent With Patient Time: Total time managing care of this patient today ____ minutes.
[2024-08-15] MEDS: ceFAZolin Sodium/Dextrose,Iso 2 GM/50 ML PIGGYBACK IV (13:52)
[2024-08-15] MEDS: fentaNYL citrate/PF 100 MCG/2 ML VIAL 50 MCG IVPUSH (14:41)
[2024-08-15] MEDS: Midazolam HCl/PF 2 MG/2 ML VIAL 1 MG IVPUSH (14:42)
--- NOTE | 2024-08-15 15:44 | PC.NURSE ---
There is a dime sized hematoma to right flank. MD is aware. No new orders.
--- NOTE | 2024-08-15 15:46 | PC.NURSE ---
PACU-Reyna RN notified of patient's impending arrival.
== END 2024-08-15 17:21 | disposition home or self-care (01) ==
LOC: HO.SSS 11:28
PROVIDERS: Radiology Vascular & Interventional Radiology; PCP Family Medicine; Visit Provider Internal Medicine
DX: Z45.2 Encounter for adjustment and management of vascular access device (principal); C67.9 Malignant neoplasm of bladder, unspecified; Z95.0 Presence of cardiac pacemaker
CPT/HCPCS: 36561; 76937; 82947; 86850; 86900; 86901; 86902; 86920; 86922; 99152; 99153; C1769; C1788; C1894; J0690; J1642; J1644; J2003; J2250; J2310; J3010; Q9967

== ENCOUNTER → 2024-08-15 13:38 | Outpatient (BNV) | payer MEDICAID, SELFPAY | PROVIDERS: PCP Family Medicine; Visit Provider Radiology Vascular & Interventional Radiology | DX: C67.9 Malignant neoplasm of bladder, unspecified (principal) | CPT/HCPCS: 36561; 76937; 77001 ==

== ENCOUNTER 2024-08-22 13:48 | Outpatient (AMB) | payer MEDICAID, SELFPAY ==
--- NOTE | 2024-08-22 13:50 | MHC.OFFVIS ---
Intake Visit Reasons: Cysto (bladder CA) Allergies No Known Allergies [No Known Allergies*] Allergy (Verified 08/07/24 17:29) HPI Comments Details: Jazmine is a pleasant Thai-speaking female. She is a patient of . She is seen for the following urologic conditions - high-grade invasive bladder cancer - nephrolithiasis Has metastatic disease on imaging Following with Oncology Three-month cystoscopy Bladder clear Minimal issues with mucosa Discussed imaging results 4 month follow-up cystoscopy High-grade, invasive bladder cancer superficial TURBT 03/20 T1[facility] Imaging - CT 07/20 no stones, decreased retroperitoneal lymphadenopathy She underwent core needle biopsy of right retroperitoneal mass on 04/18/2024 which revealed poorly differentiated carcinoma consistent with patient's known urothelial carcinoma. 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 TMB 21.6 M/MB 95th percentile, MSI stable. FDA approved therapies, medina FGFR inhibitor, Erdafitinib and pembrolizumab PET scan performed 03/2024 showed FDG avid bilateral retroperitoneal lymphadenopathy. Lytic lesion on T12 favored to represent Schmorl's node rather than metastatic lesion. No FDG activity. No other areas of FDG activity. [facility] Medical History ESRD (end stage renal disease) on dialysis Mass of bladder Bladder mass Pacemaker History of adenomatous polyp of colon Cardiomyopathy Chronic kidney disease, stage 4 (severe) Hypertension Type 2 diabetes mellitus with diabetic nephropathy Surgical History History of ankle surgery History of biopsy Social History Household Members: Children Housing: House Are you a primary hospice care sales consultant to a significant other at home: No Do you presently have visiting nurse or other home services: No Alcohol intake: never Patient Tobacco Use Status: Never used Tobacco service: No Current occupational status: disabled Gender identity: Female Review of Systems Const Denies chills and Denies fever(s) Card Reports no additional complaints and Denies syncope Resp Denies cough GI Denies abdominal pain and Denies heartburn Reports as per HPI and Denies change in libido Neuro Denies syncope Psych Denies change in libido Endo Denies change in libido Physical Exam Const General: cooperative, healthy appearing, comfortable and no acute distress Orientation/consciousness: patient oriented x3 HEENT Face and sinus: Yes normal facial exam Mouth: moist mucous membranes Neck Neck: Yes normal visual inspection, Yes full ROM and Yes trachea midline Chest Chest palpation & inspection: normal inspection of the chest Resp Effort & Inspection: normal respiratory effort, able to speak in complete sentences and no respiratory distress GI Inspection: Yes normal to inspection Back/Spine/Pelvis Cervical Spine: normal cervical lordosis Thoracic/Lumbar Spine: thoracic and lumbar spine normal to inspection Skin General skin exam: no rashes or lesions noted Neuro General: patient oriented x3, gait normal, tone normal and moves all extremities Extrem General: Yes normal to inspection and Yes capillary refill normal Office Procedures Cystoscopy Consent Discussed risk and benefit or proposed procedure with the patient. Information consent for procedure given to the patient. Discussed technical aspects, risks, benefits and alternatives in full. Addressed all of the patient's questions and concerns regarding the procedure. The patient demonstrated knowledge and understanding. They wish to proceed with this procedure. Preparation The patient was prepped in the usual manner. A leasing machine tender was present and in the room. Genitalia was prepped with betadine solution in a sterile manner. Lidocaine Jelly 2% was placed into the urethra and 16Fr flexible Olympus cystoscope was inserted into the meatus after adequate lubrication. Procedure Meatus normal position Urethra normal Bladder examination with retroflexion of cystoscope Bladder Orifices normal shape and position Trigone mild metaplasia Bladder Capacity normal Trabeculations - Cellule Formation - Diverticulum Formation - Mucosal Erythema occasional patches Bladder Tumor - [id number] DISPOSABLE SCOPE URO-G FLEXIBLE SCOPE Procedure code (CPT) selection complete Office Meds lidocaine HCl 2 % mucosal jelly in applicator Performing Provider: Jung Maxwell MD Performing [facility] [place] [facility] Administered by: Jung Maxwell MD on 08/22/24 14:50 Dose Route Admin Location Dispensed Lot Number Expiration Date [facility] Chamber Magistrate 10 mL intra-urethral 10 mL Results AMB Urinalysis, Automated UA Leukoctes 125 Rubin/uL Last Edit by JOSE Penaloza on 08/22/24 14:05 UA Nitrite Negative Last Edit by JOSE Penaloza on 08/22/24 14:05 UA Urobilinogen 0.2 mg/dL Last Edit by JOSE Penaloza on 08/22/24 14:05 UA Protein 300 mg/dL Last Edit by JOSE Penaloza on 08/22/24 14:05 UA pH 7.0 Last Edit by Marlys New CCM on 08/22/24 14:05 UA Blood 25 Gonzalo/uL Last Edit by JOSE Penaloza on 08/22/24 14:05 UA Specific [place] 1.010 Last Edit by JOSE Penaloza on 08/22/24 14:05 UA Ketone Negative Last Edit by JOSE Penaloza on 08/22/24 14:05 UA Bilirubin 0 mg/dL Last Edit by JOSE Penaloza on 08/22/24 14:05 UA Glucose 100 mg/dL Last Edit by JOSE Penaloza on 08/22/24 14:05 Results Reviewed Results Reviewed: Laboratory Last Values Urine pH (Auto) 7.0 08/22/24 14:05 Specific [place] (Auto) 1.010 08/22/24 14:05 Urine Protein (Auto) 300 mg/dL 08/22/24 14:05 Glucose (UA)(Auto) 100 mg/dL 08/22/24 14:05 Urine Ketones (Auto) Negative 08/22/24 14:05 Urine Blood (Auto) 25 Gonzalo/uL 08/22/24 14:05 Urine Nitrite (Auto) Negative 08/22/24 14:05 Urine Bilirubin (Auto) 0 mg/dL 08/22/24 14:05 Urine Urobilinogen (Auto) 0.2 mg/dL 08/22/24 14:05 Leukocyte Esterase (Auto) 125 Rubin/uL 08/22/24 14:05 Assessment & Plan Assessment & Plan (1) Bladder spasm: Code(s): N32.89 - Other specified disorders of bladder Category: Medical (2) Diabetic nephropathy: Code(s): E11.21 - Type 2 diabetes mellitus with diabetic nephropathy Category: Medical Qualifiers: Diabetes mellitus type: type 2 Qualified Code(s): E11.21 - Type 2 diabetes mellitus with diabetic nephropathy (3) Bladder cancer: Code(s): C67.9 - Malignant neoplasm of bladder, unspecified Category: Medical Plan Trial oxybutynin Four month follow-up cysto Orders: Orders AMB Urinalysis Automated Today Z13.9 - Encounter for screening, unspecified AMB Cystoscopy Today C67.9 - Malignant neoplasm of bladder, unspecified Medications: New lidocaine HCl 2% 10 mL intra-urethral ONCE 10 mL 0RF C67.9 - Malignant neoplasm of bladder, unspecified oxybutynin chloride Take one for bladder spasm 5 mg PO Q8H 20 tabs 0RF bladder spasms N32.89 - Other specified disorders of bladder Patient Instructions: Imaging studies, laboratory and physical exam results were discussed and reviewed in detail. No major barriers to patient understanding were identified. An opportunity to ask questions regarding the treatment plan was provided. All questions were answered. The patient expressed understanding and agreement with the above treatment plan. The patient is aware they should contact our office by phone for worsening of their current condition or the appearance of new urologic symptoms. Compliance is encouraged with any medications and followup testing that is ordered. It is a privilege to participate in the urologic care of your patient. If you have any questions or concerns regarding treatment for the above conditions, or other urologic issues, please do not hesitate to contact me. The office telephone contact is [phone]. This note is constructed using voice recognition software. While every effort has been made to ensure accuracy laundry room attendant errors may have been included. Yours sincerely, Dr Jung Maxwell MD, [facility] - Urology Providers of Expert, Compassionate Care for the Genitourinary System Coding Level of Care Code Est Pt Level 3 (02361) Diagnoses Bladder spasm N32.89 Diabetic nephropathy associated with type 2 diabetes mellitus E11.21 Diabetes mellitus type: type 2 Bladder cancer C67.9 CPT Codes Cystoscopy - CPT: 16967-[id number] ([id number])
== END 2024-08-22 14:53 | disposition home or self-care (01) ==
PROVIDERS: PCP Family Medicine; Visit Provider Urology
DX: C67.9 Malignant neoplasm of bladder, unspecified (principal); E11.21 Type 2 diabetes mellitus with diabetic nephropathy; Z13.9 Encounter for screening, unspecified
CPT/HCPCS: 52000; 99213

== ENCOUNTER → 2024-08-22 13:48 | Outpatient (BNVA) | payer MEDICAID, SELFPAY | PROVIDERS: PCP Family Medicine; Visit Provider Urology | DX: C67.9 Malignant neoplasm of bladder, unspecified (principal); N20.0 Calculus of kidney; E11.21 Type 2 diabetes mellitus with diabetic nephropathy; E11.65 Type 2 diabetes mellitus with hyperglycemia; N18.6 End stage renal disease; N18.4 Chronic kidney disease, stage 4 (severe); Z99.2 Dependence on renal dialysis; N32.89 Other specified disorders of bladder | CPT/HCPCS: 52000; 81003; 99212 ==

== ENCOUNTER → 2024-08-27 | Outpatient (BNV) | payer MEDICAID, SELFPAY | PROVIDERS: PCP Family Medicine; Visit Provider Internal Medicine Nephrology | DX: N18.6 End stage renal disease (principal) | CPT/HCPCS: 90961 ==

== ENCOUNTER 2024-09-07 09:49 | Outpatient (REF) | payer MEDICAID, SELFPAY ==
[2024-09-07] VITALS (27 sets, daily range): BP systolic 130–173; BP diastolic 65–91; PULSE 78–86; RESP 12–22; TEMP 36.2; O2SAT 95–100; BMI 27.6
--- NOTE | ~2024-09-07 | IR_ITS ---
History: Patient in need of chemotherapy with a translumbar port. There is breakdown of the incision overlying the port and therefore she presents for revision. Procedures performed: 1. Removal of the existing translumbar port. 2. Fluoroscopic-guided placement of a new translumbar port via the inferior vena cava. Physician: Christophe Espinal MD Anesthesia: IV moderate sedation with intravenous fentanyl and versed was administered under my direct supervision with continuous physiologic monitoring for a total of 60 minutes. 1% lidocaine was used for local anesthesia at the access point to the inferior vena cava and at the new port incision and the old port incision. In total, 19 mL of lidocaine was administered. Specimen: None Drain: None Estimated blood loss: Minimal Consultations: None Procedure in detail: Informed and written consent was obtained and placed in the patient's chart. 1% lidocaine was injected at the original incision site for access to the inferior vena cava. This was extended to the deep soft tissues. We then injected lidocaine at the planned location for the new port and along the subcutaneous tract extending from the port location to the original inferior vena cava access. A small incision was made in the skin with a #15 blade and blunt dissection was performed with hemostats until the port catheter was identified. We cut the port catheter and then advanced a stiff Glidewire through the lumen of the cut catheter into the inferior vena cava over which we placed a peel-away sheath. At the planned location for the port, a small incision with a #15 blade was made and blunt dissection was performed to create a pocket for the port. The new port was then inserted into the pocket with the catheter attached and tunneled to the inferior vena cava access site. The port catheter was trimmed to length and then inserted into the peel-away sheath. A saved fluoroscopic image shows that the port catheter terminates at the right atrium. The port was tested and flushes and aspirates appropriately. It was locked with heparin. The small incision corresponding to the inferior vena cava access was closed with a 3-0 Vicryl suture and overlying Dermabond. The port pocket was closed with interrupted 2-0 vertical mattress Vicryl suture, a running 4-0 Monocryl subcuticular suture, and three layers of Dermabond. Finally, we directed our attention to the old port. 1% lidocaine was injected subcutaneously and extended throughout the port pocket. A small incision was made with a #15 blade. Blunt dissection was performed to free the port and the catheter fragment attached to it from the pocket. Fluoroscopy confirms complete port removal. The pocket was irrigated and closed with 2-0 Vicryl suture and overlying Dermabond. Sterile dressings were applied to all locations. Summary: Successful fluoroscopic guided placement of a new translumbar inferior vena cava port as described in detail above and removal of the old port as noted. Electronically signed by: Juan Pablo Espinal MD 09/07/2024 02:25 PM ELSA CORDERO
--- OUTSIDE RECORDS SUMMARY | 2024-09-07 09:53 | XMS_ITS ---
Author Organization Estuardo Kenyon III, MD Address [address] [place] [address] Care Team Providers Care Digital Business Analyst Name Role Phone YENI SALGUERO Primary Care Provider [phone] Estuardo Kenyon Unavailable [phone] Allergies Allergen (clinical drug ingredient) Drug/Non Drug [...] Provider Specialty Oncology General Notes Esther Hernandez SOLUTION SPECIALIST 02/26 02:14:17 PM EDT > pt dtr Olga called given appt information and ref/progress notes and all testing faxed to Dr Zhou at [phone] Referral Priority Routine Referral Appointment Date 03/17/2024 [...] MORNING Oral Active Vitamin D3 50 MCG (1999 UT) 1 capsule Or ally Once a [...] Problem Status W/U Status Risk Notes Problem 41957191 Cardiomyopathy, unspecified type (I42.9) Active confirmed Problem 03215932 Chronic renal failure, stage 4 (severe) (N18.4) Active confirmed We have mad e the senior safety support manager aware of the situation. The fistula in the left upper lung appears to be maturing well. The dialysis catheter and right upper chest wall is intact and seems to function normally. Problem 26425474 Hypertension, unspecified type (I10) Active confirmed Problem 281533631350304223 Progressive macular hypomelanosis (L81.6) Active confirmed Problem 790549845 AVF (arteriovenous fistula) (I77.0) Active confirmed Problem 29845047 End-stage renal disease (N18.6) Active confirmed Problem 002377439 Pacemaker (Z95.0) Active confirmed Problem 123286595 History of adenomatous polyp of colon (Z86.010) Active confirmed Problem 904745487 Type 2 diabetes mellitus with diabetic chronic kidney disease (E11.22) Active confirmed Problem 456761587 Chronic kidney disease, stage 5 (N18.5) Active confirmed 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 Problem 72126810 Type 2 diabetes mellitus with diabetic nephropathy, unspecified whether extermination inspector insulin use (E11.21) Active confirmed Diabetes currently seems well controlled. Problem 29827624 Secondary hyperparathyroid ism of renal origin (N25.81) Active confirmed She is in end-stage renal disease. Problem 469257292 Malignant neoplasm of urinary bladder, unspecified site [...] Date Provider Diagnosis Estuardo Kenyon III, MD [address] [place] [address] [address] [place], [place] [id number] 03/16/2024 Estuardo Kenyon Chronic renal failur e, stage 4 (severe) N18.4 ; Malignant neoplasm of urinary bladder, unspecified site C67.9 ; Type 2 diabetes mellitus with diabetic nephropathy, unspecified whether extermination inspector insulin use E11.21 ; Secondary hyperparathyroidism of [...] (ICD-10 - N18.4) We have made the senior safety support manager aware of the situation. The fistula in [...] apoorva itus with diabetic nephropathy, unspecified whether extermination inspector insulin use (ICD-10 - E11.21) Diabetes currently [...] * Jazmine RILEYDOB: [birth year] (58 yo F)Acc No.[id number]:03/16/2024 Patient:?Jazmine Riley Provider:?Estuardo Kenyon MD :1965???Age:58 Y???Sex:Female D ate:03/16/2024 Address:[address] [place] [address] [place] [id number] Pcp:YENI SALGUERO Subjective: * Chief Complaints: * ???Urothelial carcinomaEnd-s tage renal diseaseDialysis patientDiabetesCardiomyopathy * HPI: ???COVID-19 Screening:? This patient went to the emergency room last weekend pain and weakness. She has a history of end-stage reenal disease and diabetes mellitus. She has a dialysis catheter in the right upper chest wall which has been used recently. An arteriovenous fistula has been created in the upper left arm but has not been used yet as it is still healing. Her senior safety support manager is Dr. Martinez. She receives primary care at the [facility]. A CT scan of the abdomen at the [facility] recently showed a large mass in [...] have referred her to medical oncology at [facility] for further staging and definitive treatment. ?Questions?Have you experienced fever, chills, cough, sore throat, shortness of breath, difficulty breathing, muscle aches, loss of taste or smell??Yes cough stated longer than 48 hrs, Sore Throat ?Have you been exposed to the virus within the last 10 days??No ?Have you travelled internationally in the last 10 days??No ?Have you been exposed to COVID-19 in the past??Yes * ROS:?General/Constitutional:?pain?Bilateral lower abdominal pain.?Chills?denies.?Fatigue?admits.?Fever?denies.?ENT:?Decreased hearing?denies.?Respiratory:?Cough?denies.?Cardiovascular:?Chest pain with exertion?denies.?Dyspnea on exertion?denies.?Shortness of breath?denies.?Gastrointestinal:?Constipation?denies.?Decreased appetite?denies.?Diarrhea?denies.?Heartburn?denies.?Nausea?denies.?Rectal bleeding?denies.?Vomiting?denies.?Hematology:?bruising?denies.?petechiae?denies.?Swollen glands?none have been noted.?Genitourinary:?Frequent urination?a small amount.?Musculoskeletal:?Muscle aches?denies.?Painful joints?denies.?Sciatica?denies.?Weakness?denies.?Skin:?Itching?denies.?Rash?denies.?Skin lesion(s)?denies.?Neurologic:?Difficulty speaking?denies.?Dizziness?denies.?Headache?denies.?Low back pain?denies.?Psychiatric:?Depressed mood?which is mild.? * Medical History:? * Surgical History:?Denies Pas t Surgical History * Hospitalization/Major Diagno stic Procedure:?Denies Past Hospitalization * Family History:?Father: dece ased, Stroke.?Mother: , Stroke.?4 brother(s) , 5 sister(s) . .? Siblings have HTN and one sister have DM. * Social History:?Tobacco Use:?Tobacco Use/Smoking?Patient is a?nonsmoker ?Additional Findings: Tobacco Non-User?Aggressive non-smoker ???Drugs/Alcohol:?Drugs?Have you used drugs other than those for medical reasons in the past 12 months??No ?Alcohol Screen?Did you have a drink containing alcohol in the past year??No ?Points?0 ?Interpretation?Negative * Medications:?TakingVitamin D 3 50 MCG (2000 UT) Capsule 1 capsule Orally Once a dayRosuvastatin [...] EVENING Oral Taking Vitamin D3 50 MCG (2000 UT) Capsule 1 capsule Orally Once a dayTaking [...] Lispro (1 Unit Dial) 100 UNIT/ML Solution Pen- injector INJECT 8-18 UNITS SUBCUTANEOUSLY THREE TIMES DAILY BEFORE MEALS DIRECTED Subcutaneous Medication List reviewed and reconciled with the patient * Allergies:?No Known Drug All ergyno[Allergies Verified] Objective: * Vitals:?Ht: 5' 1 , Wt: 160, BMI:30.23, BP: 139/69, HR: 91, Temp: 98.1, Ht-cm: 154.94, Wt-k.57. * Examination: ???General Examination: ?GENERAL APPEARANCE:?pleasant, well nourished, well developed, in no acute distress, calm and relaxed , obese , woman.?HEAD:?atraumatic, normocephalic.?EYES:?eomi, perrla, anicteric, conjugate.?EARS:?normal.?NOSE:?septum intact.?ORAL CAVITY:?normal, unremarkable.?NECK/THYROID:?no jugular venous distention, no carotid bruit, thyroid normal.?LYMPH NODES:?no enlarged lymph nodes,spleen normal.?SKIN:?no suspicious lesions, anicteric.?HEART:?no clicks, gallops, murmurs, or rubs, regular rhythm, S1, S2 normal, no s3, or vascular bruits.?LUNGS:?clear to auscultation .?BREASTS:?not examined.?ABDOMEN:?bowel sounds normal, no ascites, no organomegaly, no mass , centripital obesity.?RECTAL EXAM:?not examined.?MUSCULOSKELETAL:?extremities unremarkable, no clubbing, cyanosis or edema.?PERIPHERAL PULSES:?normal.?NEUROLOGIC:?alert and oriented, cranial nerves 2-12 grossly intact, deep tendon reflexes 2+ symmetrical, motor strength normal upper and lower extremities, sensory exam intact.?PSYCH:?alert, oriented.? Assessment: * Assessment: 1.?Chronic renal failure, st age 4 (severe) - N18.4 (Primary), We have made the senior safety support manager aware of the situation. The fistula in the left upper lung appears to be maturing well. The dialysis catheter and right upper chest wall is intact and seems to function normally.?2.?Malignant neoplasm of urinary bladder, unspecified site - C67.9, The tumor appears to be widespread. We will need to review the images with the radiologist to clarify the nature of the mass in or I can tellnear the right kidney.?3.?Type 2 diabetes mellitus with diabetic nephropathy, unspecified whether extermination inspector insulin use - E11.21, Diabetes currently seems well controlled.?4.?Secondary hyperparathyroidism of renal origin - N25.81, She is in end-stage renal disease.?5.?Anemia in chronic kidney disease - D63.1, Her blood pressure is currently 139/69 and no change in her regimen as needed.?6.?Progressive macular hypomelanosis - L81.6?7.?AVF (arteriovenous fistula) - I77.0?8.?Pacemaker - Z95.0?9.?End-stage renal disease - N18.6?10.?Hypertension, unspecified type - I10? Plan: * Treatment: 2.?Malignant neoplasm of uri nary bladder, unspecified site? Referral To:[facility]??Oncology ?Reason:urothelial cancer evaluate and treat * Procedure Codes:?20525 TRANS CARE MGMT 7 DAY DISCH * Preventive Medicine:? ??Counseling:?Care goal follow-up plan:?Counseling for abnormal BMI given?Yes ?Above Normal BMI Follow-up?Dietary management education, guidance, and counseling, Dietary needs education, Exercise promotion: strength training, Exercise promotion: stretching, Feeding regime, Giving encouragement to exercise, Lifestyle education regarding diet, Nutrition / feeding management, Nutrition therapy, Prescribed activity/exercise education, Prescribed diet education, Prescribed dietary intake, Special diet education, Weight monitoring , Intervention, Order not done: Medical or Other reason not done ??DM Care Plan:?Patient Lifestyle Goals?Patient wants to be able to manage diabetes without too much effort.?Treatment Goals?HbA1C < 7.0, Blood Sugars less than < 115.?Barriers?no barriers.?Self-Managment Goals?Work on weight loss, with a goal of losing 1 lb per week, Increase exercise to 3 times a week for 30 mins, Take blood sugars twice daily and keep a log. Bring log in to next appointment.? * Follow Up:?prn (Reason: ov) * Images: * Sign off status: Completed true * Provider:?Estuardo Kenyon MD Date:?02/26 Generated for Maddy car/Faxing/eTransmitting on:?09/07/2024 09:53 AM EST History and Physical Notes * HPI (History of Present Illness) Category Sub-Category Detail Notes COVID-19 Screening Questions Have you had any new onset fever, chills, cough, congestion, sore throat, shortness of breath, muscle aches?: Yes cough stated longer than 48 hrs, Sore Throat Have you been exposed to the virus withi n the last 10 days?: No Have you travelled internationally in [facility] last 10 days?: No Have you been [...] Referral Date Referring Provider Referred Provider Not 03/16/2024 Estuardo Kenyon RENUKA urothelial c ancer evaluate and treat
--- OUTSIDE RECORDS SUMMARY | 2024-09-07 09:54 | XMS_ITS | Patient Health Record ---
Author Organization Estuardo Kenyon III, MD Address [address] [place] [address] Care Team Providers Care Lead Pl Sql Developer Name Role Phone YENI SALGUERO Primary Care Provider [phone] Estuardo Kenyon [phone] Allergies Allergen (clinical drug ingredient) Drug/Non Drug Allergy documented on EMR Reaction Allergy Type Onset Date Status No Known Drug Allergy Unknown Drug Allergy Active Reason For Referral Reason Consult and Treat Diagnosis 1 End-stage renal dise ase (N18.6) Diagnosis 2 Chronic kidney disea se, stage 5 (N18.5) Referral Organization [facility] Referring Provider First Name YENI Referring Provider Last Name NOEMY Referring Provider Speciality Family Med icine Referred Organization Estuardo Kenyon III, MD Referred Provider Estuardo Kenyon Referred Address [address] [place] [address] [address],[place], [place],[address], Referred Provider Specialty Oncology Referral Priority Routine Reason urothelial cancer ev aluate and treat Diagnosis 1 Malignant neoplasm o f urinary bladder, unspecified site (C67.9) Referral Organization Estuardo Kenyon III, MD Referring Provider First Name Estuardo Referring Provider Last Name Chantale Referring Provider Speciality Internal M edicine Referred Provider HI ZHOU Referred Provider Specialty Oncology General Notes Mary,Esther CIVIL CAD DESIGNER 02/26 02:14:17 PM EDT > pt dtr Olga called given appt information and ref/progress notes and all testing faxed to Dr Zhou at [phone] Referral Priority Routine Referral Appointment Date 03/17/2024 Medications Medication SIG (Take, Route, Frequency, Duration) Notes Start Date End Date Status Farxiga 10 MG TAKE 1 TABLET BY ISIDRA TH EVERY MORNING Oral Active FeroSul 325 (65 Fe) MG TAKE 1 TABLET BY MOUTH EVERY EVENING Oral Active Vitamin D3 50 MCG (1999 UT) 1 capsule Or ally Once a day Active Rosuvastatin Calcium 40 MG 1 tablet Oral ly Once a day Active Omeprazole 20 MG 1 capsule 30 minutes before morning meal Orally Once a day Active Metoprolol Tartrate 25 MG 1 tablet with food Orally Twice a day Active Amitriptyline HCl 50 MG TAKE 1 TABLET BY MOUTH AT BEDTIME Oral Active Aspirin Low Dose 81 MG TAKE 1 TABLET BY MOUTH EVERY MORNING Oral Active Social History Tobacco Use: Social History [...] Problem Status W/U Status Risk Notes Problem 289973994 Anemia in chronic kidney disease (D63.1) Active confirmed Her blood pressure is currently 139/69 and no change in her regimen as needed. Problem 278510038 Type 2 diabetes mellitus with diabetic chronic kidney disease (E11.22) Active confirmed Problem 885961534 Chronic kidney disease, stage 5 (N18.5) Active confirmed Problem 33217404 Secondary hyperparathyroid ism of renal origin (N25.81) Active confirmed She is in end-stage renal disease. 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 The fistula in the left upper lung appears to be maturing well. The dialysis catheter and right upper chest wall is intact and seems to function normally. Problem 998255614 Malignant neoplasm of urinary bladder, unspecified site (C67.9) Active confirmed The tumor appears to be widespread. We will need to review the images with the radiologist to clarify the nature of the mass in or I can tellnear the right kidney. Problem 10464412 Cardiomyopathy, unspecified type (I42.9) Active confirmed Problem [id number] Progressive macular hypomelanosis (L81.6) Active confirmed Problem 247779473 AVF (arteriovenous fistula) (I77.0) Active confirmed Problem 60896342 End-stage renal disease (N18.6) Active confirmed Problem 43655719 Type 2 diabetes mellitus with diabetic nephropathy, unspecified whether termite helper insulin use (E11.21) Active confirmed Diabetes currently seems well controlled. Vital Signs Heart Rate 91 /min 03/16/2024 Temperature 98.1 degrees Fahrenheit 03/16/2024 Blood pressure diastolic 69 mm Hg 03/16/2024 Height 5' 1 in 03/16/2024 Blood pressure systolic 139 mm Hg 03/16/2024 Weight 160 lbs 03/16/2024 BMI 30.23 kg/m2 03/16/2024 Encounters Encounter Location Date Provider Diagnosis Estuardo Kenyon III, MD [address] [place] [address] [place] [phone] 03/16/2024 Estuardo Kenyon Chronic renal failur e, stage 4 (severe) N18.4 ; Malignant neoplasm of urinary bladder, unspecified site C67.9 ; Type 2 diabetes mellitus with diabetic nephropathy, unspecified whether prison insulin use E11.21 ; Secondary hyperparathyroidism of [...] (ICD-10 - N18.4) We have made the mat man aware of the situation. The fistula in [...] apoorva itus with diabetic nephropathy, unspecified whether prison insulin use (ICD-10 - E11.21) Diabetes currently [...] type (ICD-10 - I10) Plan Of Treatment No Information Insurance Providers Payer Name Payer Address Payer Phone Subscriber Number Group Number Insured Name Patient Relationship to Insured Coverage Start Date Coverage End Date MEDICAID [address] KASSANDRA GONZALEZ [id number] Jazmine Max Self - patient is the insured
[2024-09-07 11:44] LABS: Glucose, Whole Blood 178 mg/dL (60-115)
--- NOTE | 2024-09-07 12:16 | PC.NURSE ---
IV antibx given via permacath on right chest area-Ancef 2gm
[2024-09-07] MEDS: ceFAZolin Sodium/Dextrose,Iso 2 GM/50 ML PIGGYBACK IV (12:37)
--- NOTE | 2024-09-07 13:05 | MHC.SHP ---
Pre-Procedural Eval Section A - 24 Hr Update-Section A only Date of Service: 09/07/24 The patient is an INPATIENT: No Changes since office visit: No Cold of Flu in the past 2 weeks, No New Medical Problems, No Changes in Medication and No Patient answered all questions The patient has been examined within 24 hours of the surgical procedure. The History & Physical has been completed within 30 days and I have reviewed it.: Yes Section B - Complete if H&P > 30 days Chief Complaint: REPOSITIONING PORT LOCATION Allergies: Allergies Allergy/AdvReac Type Severity Reaction Status Date / Time No Known Allergies Allergy Verified 09/07/24 11:09 [No Known Allergies*] Plan I have reviewed the history and physical and performed a pertinent physical examination on my patient. No changes have occurred unless specified. Time Spent With Patient Time: Total time managing care of this patient today ____ minutes.
[2024-09-07] MEDS: Midazolam HCl/PF 2 MG/2 ML VIAL 1 MG IVPUSH (13:14)
[2024-09-07] MEDS: fentaNYL citrate/PF 100 MCG/2 ML VIAL 50 MCG IVPUSH (13:14)
[2024-09-07] MEDS: Heparin Sodium,Porcine 1,000 UNIT/ML VIAL 2000 UNIT IV (14:40)
== END 2024-09-07 16:12 | disposition home or self-care (01) ==
LOC: HO.SSS 09:49
PROVIDERS: Radiology Vascular & Interventional Radiology; PCP Family Medicine; Visit Provider Physician Assistant Surgical
DX: Z45.2 Encounter for adjustment and management of vascular access device (principal); C67.9 Malignant neoplasm of bladder, unspecified; E11.22 Type 2 diabetes mellitus with diabetic chronic kidney disease; I12.0 Hypertensive chronic kidney disease with stage 5 chronic kidney disease or end stage renal disease; N18.5 Chronic kidney disease, stage 5; D63.1 Anemia in chronic kidney disease; I82.C11 Acute embolism and thrombosis of right internal jugular vein; I42.9 Cardiomyopathy, unspecified; Z79.01 Long term (current) use of anticoagulants; Z95.0 Presence of cardiac pacemaker; Z99.2 Dependence on renal dialysis
CPT/HCPCS: 36581; 82947; 99152; 99153; J0690; J1642; J1644; J2003; J2250; J2310; J3010; Q9967

== ENCOUNTER → 2024-09-07 12:02 | Outpatient (BNV) | payer MEDICAID, SELFPAY | PROVIDERS: PCP Family Medicine; Visit Provider Radiology Vascular & Interventional Radiology | DX: C67.9 Malignant neoplasm of bladder, unspecified (principal); Z95.828 Presence of other vascular implants and grafts | CPT/HCPCS: 36581; 77001; 99152 ==

== ENCOUNTER → 2024-09-27 | Outpatient (BNV) | payer MEDICAID, SELFPAY | PROVIDERS: PCP Family Medicine; Visit Provider Internal Medicine Nephrology | DX: N18.6 End stage renal disease (principal) | CPT/HCPCS: 90962 ==

== ENCOUNTER 2024-10-19 11:15 | Outpatient (AMB) | payer MEDICAID, SELFPAY ==
[2024-10-19 11:23] VITALS: BP 116/60; PULSE 82; BMI 27.5
--- NOTE | 2024-10-19 11:23 | A.OFFVIS_ITS ---
Vital Signs 10/19/24 11:23 Height 5 ft 1 in Weight 145 lb 8.081 oz BMI 27.5 BP 116/60 Blood Pressure Location Rt brachial Position Sitting Pulse 82 Pulse Source Pulse Oximeter Intake Visit Reasons: Type 2 DM Intake Note: NEW Patient presents today to re-establish treatment for Type 2 Diabetes Mellitus: Last Diabetic eye exam was on: DUE Last Podiatry exam was on: Patient does not see a Convex Grinder Operator Most recent HbA1c: 7.5%, 10/19/2024 Random Glucose- 180 mg/dL, Today Pipe Organ Technician Required: Yes Pipe Organ Technician Language: Turkish Accompanied by: Self / Same As Patient Allergies No Known Allergies [No Known Allergies*] Allergy (Verified 10/19/24 11:28) HPI Comments Details: 59 year old COUNTS INCLUDE 234 BEDS AT [facility] Medical History (Updated 10/19/24 @ 11:42 by Emily Crowell MD) ESRD (end stage renal disease) on dialysis Mass of bladder Bladder mass Pacemaker History of adenomatous polyp of colon Cardiomyopathy Chronic kidney disease, stage 4 (severe) Hypertension Type 2 diabetes mellitus with diabetic nephropathy Surgical History (Updated 10/19/24 @ 08:34 by ESPERANZA Cote) History of insertion of tunneled central venous catheter (CVC) with port History of bladder surgery History of ankle surgery History of biopsy Family History (Updated 10/19/24 @ 08:35 by ESPERANZA Cote) Father No problems noted. Mother No problems noted. Social History Household Members: Children Housing: House Are you a primary director of career resources to a significant other at home: No Do you presently have visiting nurse or other home services: No Alcohol intake: never Patient Tobacco Use Status: Never used Tobacco service: No Current occupational status: disabled Gender identity: Female Physical Exam Vital Signs: Last Vital Signs Pulse 82 10/19/24 11:23 BP 116/60 10/19/24 11:23 BMI result Body Mass Index 27.5 Results AMB Hemoglobin A1c AMB Hemoglobin A1c 7.5 % Last Edit by ESPERANZA Cote on 10/19/24 11:41 Results Reviewed Results Reviewed: Laboratory Last Values Glucose (Clinic) 180 mg/dL (60-115) H 10/19/24 11:27 Assessment & Plan Assessment & Plan Orders: Orders AMB Hemoglobin A1c Today E11.21 - Type 2 diabetes mellitus with diabetic nephropathy Referrals Medical Nutrition Therapy Referral E11.9 - Type 2 diabetes mellitus without complications, Z79.4 - custodial (current) use of insulin Medications: New FreeStyle Gary 3 Plus Sensor (blood-glucose sensor) As directed 6 ea 3RF NS E11.21 - Type 2 diabetes mellitus with diabetic nephropathy FreeStyle Gary 3 [place] (blood-glucose meter,continuous) As directed 1 ea 0RF NS E11.9 - Type 2 diabetes mellitus without complications, Z79.4 - continuous churn buttermaker (current) use of insulin Coding
[2024-10-19 11:31] LABS: Glucose, Whole Blood 180 mg/dL (60-115)
== END 2024-10-19 11:47 | disposition home or self-care (01) ==
PROVIDERS: PCP Family Medicine; Visit Provider Internal Medicine
DX: E11.21 Type 2 diabetes mellitus with diabetic nephropathy (principal)

== ENCOUNTER → 2024-10-19 11:15 | Outpatient (BNVA) | payer MEDICAID, SELFPAY | PROVIDERS: PCP Family Medicine; Visit Provider Internal Medicine | DX: E11.22 Type 2 diabetes mellitus with diabetic chronic kidney disease (principal); N18.6 End stage renal disease; Z79.4 Long term (current) use of insulin; Z99.2 Dependence on renal dialysis | CPT/HCPCS: 82947; 83036; 99212 ==

== ENCOUNTER → 2024-11-25 | Outpatient (BNV) | payer MEDICAID, SELFPAY | PROVIDERS: PCP Family Medicine; Visit Provider Internal Medicine Nephrology | DX: N18.6 End stage renal disease (principal) | CPT/HCPCS: 90961 ==

== ENCOUNTER → 2024-12-26 | Outpatient (BNV) | payer MEDICAID, SELFPAY | PROVIDERS: PCP Family Medicine; Visit Provider Internal Medicine Nephrology | DX: N18.6 End stage renal disease (principal) | CPT/HCPCS: 90962 ==

== ENCOUNTER 2025-01-25 10:00 | Outpatient (AMB) | payer MEDICAID, SELFPAY ==
--- NOTE | 2025-01-25 10:22 | MHC.OFFVIS ---
Intake Visit Reasons: cysto Intake Note: Patient is present for a cystoscopy Urology Medication:Amitriptyline Antibiotic Allergy:NONE Blood Thinner:Aspirin, Apixaban Skinning Machine Feeder Required: Yes Information Interpreted: non-clinical & clinical Allergies No Known Allergies [No Known Allergies*] Allergy (Verified 02/07/25 11:30) HPI Comments Details: Jazmine is a pleasant Tajik-speaking female. She is a patient of . She is seen for the following urologic conditions - high-grade invasive bladder cancer - nephrolithiasis Has been completing therapy through oncology Here for check cystoscopy Cystoscopy clear High-grade, invasive bladder cancer superficial - but lymphadenopathy Initial presentation metastatic disease with lymphadenopathy TURBT 03/20 T1[facility] Imaging - CT 07/20 no stones, decreased retroperitoneal lymphadenopathy She underwent core needle biopsy of right retroperitoneal mass on 04/18/2024 which revealed poorly differentiated carcinoma consistent with patient's known urothelial carcinoma. 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 TMB 21.6 M/MB 95th percentile, MSI stable. FDA approved therapies, medina FGFR inhibitor, Erdafitinib and pembrolizumab PET scan performed 03/2024 showed FDG avid bilateral retroperitoneal lymphadenopathy. Lytic lesion on T12 favored to represent Schmorl's node rather than metastatic lesion. No FDG activity. No other areas of FDG activity. [facility] Medical History ESRD (end stage renal disease) on dialysis Mass of bladder Bladder mass Pacemaker History of adenomatous polyp of colon Cardiomyopathy Chronic kidney disease, stage 4 (severe) Hypertension Type 2 diabetes mellitus with diabetic nephropathy Surgical History History of insertion of tunneled central venous catheter (CVC) with port History of bladder surgery History of ankle surgery History of biopsy Family History Father No problems noted. Mother No problems noted. Social History Household Members: Children Housing: House Are you a primary point of care specialist to a significant other at home: No Do you presently have visiting nurse or other home services: No Alcohol intake: never Patient Tobacco Use Status: Never used Tobacco Use of substances other than those prescribed or required for medical reasons: No Do you feel safe in your current relationship?: No Current Relationship Do you have thoughts of harming others: None Do you have a plan to hurt others: No Plan service: No Current occupational status: disabled Gender identity: Female Review of Systems Const Denies chills and Denies fever(s) Card Reports no additional complaints and Denies syncope Resp Denies cough GI Denies abdominal pain and Denies heartburn Reports as per HPI and Denies change in libido Neuro Denies syncope Psych Denies change in libido Endo Denies change in libido Physical Exam Const General: cooperative, healthy appearing, comfortable and no acute distress Orientation/consciousness: patient oriented x3 HEENT Face and sinus: Yes normal facial exam Mouth: moist mucous membranes Neck Neck: Yes normal visual inspection, Yes full ROM and Yes trachea midline Chest Chest palpation & inspection: normal inspection of the chest Resp Effort & Inspection: normal respiratory effort, able to speak in complete sentences and no respiratory distress GI Inspection: Yes normal to inspection Back/Spine/Pelvis Cervical Spine: normal cervical lordosis Thoracic/Lumbar Spine: thoracic and lumbar spine normal to inspection Skin General skin exam: no rashes or lesions noted Neuro General: patient oriented x3, gait normal, tone normal and moves all extremities Extrem General: Yes normal to inspection and Yes capillary refill normal Office Procedures Cystoscopy Consent Discussed risk and benefit or proposed procedure with the patient. Information consent for procedure given to the patient. Discussed technical aspects, risks, benefits and alternatives in full. Addressed all of the patient's questions and concerns regarding the procedure. The patient demonstrated knowledge and understanding. They wish to proceed with this procedure. Preparation The patient was prepped in the usual manner. A manager transplant was present and in the room. Genitalia was prepped with betadine solution in a sterile manner. Lidocaine Jelly 2% was placed into the urethra and 16Fr flexible Olympus cystoscope was inserted into the meatus after adequate lubrication. Procedure Meatus normal Urethra normal Bladder examination with retroflexion of cystoscope Bladder Orifices normal shape and position Trigone normal Bladder Capacity Normal Trabeculations Grade 0 Cellule Formation None Diverticulum Formation None Mucosal Erythema None - Bladder Tumor None resection area visible [id number] DISPOSABLE SCOPE URO-G FLEXIBLE SCOPE Procedure code (CPT) selection complete Office Meds lidocaine HCl 2 % mucosal jelly in applicator Performing Provider: Jung Maxwell MD Performing Location: [facility] Administered by: Yane Cummins RN on 01/25/25 10:54 Dose Route Admin Location Dispensed Lot Number Expiration Date NDC Chain Repairer 10 mL intra-urethral 10 mL nitrofurantoin monohydrate/macrocrystals 100 mg capsule Performing Provider: Jung Maxwell MD Performing Location: [facility] Administered by: Yane Cummins RN on 01/25/25 10:54 Dose Route Admin Location Dispensed Lot Number Expiration Date NDC Chain Repairer 100 mg PO 1 cap Results AMB Urinalysis, Automated UA Leukoctes 15 Rubin/uL Last Edit by Kaelyn Angela on 01/25/25 16:13 UA Nitrite Negative Last Edit by Kaelyn Angela on 01/25/25 16:13 UA Urobilinogen 0.2 mg/dL Last Edit by Kaelyn Angela on 01/25/25 16:13 UA Protein 300 mg/dL Last Edit by Kaelyn Angela on 01/25/25 16:13 UA pH 8.5 Last Edit by Kaelyn Angela on 01/25/25 16:13 UA Blood 200 Gonzalo/uL Last Edit by Kaelyn Angela on 01/25/25 16:13 UA Specific Leopold 1.010 Last Edit by Kaelyn Angela on 01/25/25 16:13 UA Ketone Positive Last Edit by Kaelyn Angela on 01/25/25 16:13 UA Bilirubin 0 mg/dL Last Edit by Kaelyn Angela on 01/25/25 16:13 UA Glucose 1000 mg/dL Last Edit by Kaelyn Angela on 01/25/25 16:13 Results Reviewed Results Reviewed: Laboratory Last Values Urine pH (Auto) 8.5 01/25/25 15:54 Specific Leopold (Auto) 1.010 01/25/25 15:54 Urine Protein (Auto) 300 mg/dL 01/25/25 15:54 Glucose (UA)(Auto) 1000 mg/dL 01/25/25 15:54 Urine Ketones (Auto) Positive 01/25/25 15:54 Urine Blood (Auto) 200 Gonzalo/uL 01/25/25 15:54 Urine Nitrite (Auto) Negative 01/25/25 15:54 Urine Bilirubin (Auto) 0 mg/dL 01/25/25 15:54 Urine Urobilinogen (Auto) 0.2 mg/dL 01/25/25 15:54 Leukocyte Esterase (Auto) 15 Rubin/uL 01/25/25 15:54 Assessment & Plan Assessment & Plan (1) Bladder cancer: Code(s): C67.9 - Malignant neoplasm of bladder, unspecified Category: Medical Plan Six-month follow-up check cysto Orders: Orders AMB Urinalysis Automated 01/25/25 Z13.9 - Encounter for screening, unspecified AMB Cystoscopy 01/25/25 C67.9 - Malignant neoplasm of bladder, unspecified Patient Instructions: This note is constructed using voice recognition software. While every effort has been made to ensure accuracy product safety engineer errors may have been included. Imaging studies, laboratory and physical exam results were discussed and reviewed in detail. No major barriers to patient understanding were identified. An opportunity to ask questions regarding the treatment plan was provided. All questions were answered. The patient expressed understanding and agreement with the above treatment plan. The patient is aware they should contact our office by phone for worsening of their current condition or the appearance of new urologic symptoms. Compliance is encouraged with any medications and followup testing that is ordered. It is a privilege to participate in the urologic care of your patient. If you have any questions or concerns regarding treatment for the above conditions, or other urologic issues, please do not hesitate to contact me. The office telephone contact is [phone]. Sincerely, Dr Jung Maxwell MD, [facility] - Urology Compassionate Specialist Care for the Genitourinary System Coding Level of Care Code Est Pt Level 3 (65390) Diagnoses Bladder cancer C67.9 CPT Codes Cystoscopy - CPT: 24043-[id number] ([id number])
--- OUTSIDE RECORDS SUMMARY | 2025-01-25 11:16 | XMS_ITS | Encounter Summary ---
Author Organization [employer] Address [address] [place] [address] Care Team Providers Care Residential Building Inspector Name Role Phone Catherine Jon MD Primary Care Provider [phone] Encounter Details Date Type Department Care Team (Late st Contact Info) Description 09/24/2022 Orders Only [facility] [address] [place] [address] Lydia Haq RN Social History Tobacco Use Types Packs/Day Years Used Date Smoking Tobacco: Never Assessed Comments Unknown Sex and Gender Information Value Date Recorded Sex Assigned at Female 07/27/2022 10:16 AM EDT Legal Sex Female 10:16 AM EDT Gender Identity Female 07/27/2022 10:16 AM EDT Sexual Orientation Straight 07/27/2022 10 :16 AM EDT documented as of this encounter Plan of Treatment Not on file documented as of this encounter Visit Diagnoses Not on filedocumented in this encounter Care Teams Residential Building Inspector Relationship Specialty Start Date End Date Catherine Jon MD [address] [place] [address] PCP - General Family Medicine [facility] Blaire Alcantara MD [facility] [address] [place] [address] Medical Oncologist Hematology and Oncology 09/21/24 Jung Maxwell MD [facility] [address] [place] [address] [place] [id number] Consulting Physician Urology 09/21/24 Bryant Ferro DO Consulting Physician Cardiology 09/21/24 [facility] [address] [place] [id number] Consulting Physician Nephrology 09/21/24 Denilson aFy MD, PhD [facility] [address] [place] [address] Consulting Physician Ophthalmology 09/21/24 [employer], COMMITTEE MEMBER Agency [address] [place] [address] Personal Care Services 09/21/24 documented as of this encounter
--- OUTSIDE RECORDS SUMMARY | 2025-01-25 11:16 | XMS_ITS | Encounter Summary ---
Author Organization [employer] Address 75 [facility] 7t [place] [address] Care Team Providers Care Case Technician Name Role Phone Catherine Jon MD Primary Care Provider [phone] Reason for Visit * Reason Onset Date Comments Call Back Request 11/23/2024 Encounter Details Date Type Department Care Team ([facility] Contact Info) Description 11/23/2024 Telephone [facility] MEDICINE [address] [place] [address] Catherine Jon MD [address] [place], [place] [id number] Call Back Request Social History Tobacco Use Types Packs/Day Years Used Date Smoking Tobacco: Never Passive Smoke Exposure: Never Smokeless Tobacco: Never Housing Stability Answer Date Recorded What is your housing situation today? I have peter hawkins 08/02/[address] you li ve. Do you have problems with any of the following? None of the above 08/02/2024 Food Insecurity Answer Date Recorded Within the past 12 months, y ou worried that your food would run out before you got money to buy more: Never True 08/02/2024 Within the past 12 months,th e food you bought just didn't last and you didn't have enough money to get more: Never True 02/2024 Transportation Answer Date Recorded In the past 12 months, has l ack of transportation kept you from medical appts, meetings, work or from getting things needed for daily living? Yes, it has kept me from medical appointments or getting medications. 08/02/2024 Utilities Answer Date Recorded In the past 12 months, has t he electric, gas, oil or water company threatened to shut off services in your home? No 08/02/2024 Internet Access Answer Date Recorded Internet Access Q1 Yes 08/02/2024 Internet Access Q2 Not on file 08/02/2024 Comments Unknown Sex and Gender Information Value Date Recorded Sex Assigned at Female 07/27/2022 10:16 AM EDT Legal Sex Female 10:16 AM EDT Gender Identity Female 07/27/2022 10:16 AM EDT Sexual Orientation Straight 07/27/2022 10 :16 AM EDT documented as of this encounter Miscellaneous Notes * Telephone Encounter - Manjeet Mayer - 11/23/2024 1:38 PM EST TC from pt requesting a call back from [employer]. Contact pt at [phone] documented in this encounter Plan of Treatment Not on file documented as of this encounter Visit Diagnoses Not on filedocumented in this encounter Care Teams Case Technician Relationship Specialty Start Date End Date Catherine Jon MD [address] [place] [address] PCP - General Family Medicine 09[facility] Blaire Alcantara MD [facility] [address] [place] [address] [address] 1 [place] [address] Medical Oncologist Hematology and Oncology 09/21/24 Jung Maxwell MD [facility] [address] [place] [address] Dr Perez [address] [place] [address] Consulting Physician Urology 09/21/24 Bryant Ferro DO Consulting Physician Cardiology 09/21/24 [facility] [address] [place] [address] Consulting Physician Nephrology 09/21/24 Denilson Fay MD, PhD [facility] 180 [place] [address] Consulting Physician Ophthalmology 09/21/24 [employer], QUAHOGGER Agency 25 [place] [address] Personal Care Services 09/21/24 documented as of this encounter
--- OUTSIDE RECORDS SUMMARY | 2025-01-25 11:16 | XMS_ITS | Encounter Summary ---
Author Organization [employer] Address 75 [facility] 7t [place] [address] Care Team Providers Care Senior Design Engineer Name Role Phone Catherine Jon MD Primary Care Provider [phone] Reason for Visit * Reason Onset Date Comments Change PCP 08/03/2024 Encounter Details Date Type Department Care Team ([facility] Contact Info) Description 08/03/2024 Telephone [facility] MEDICINE 230 [place], [place] [phone] Anne Talamantes DO 230 [place], [place] [phone] Change PCP Social History Tobacco Use Types Packs/Day Years [...] encounter Miscellaneous Notes * Telephone Encounter - Sam Schulz - 08/03/2024 1:04 PM EST Tc from pt stating she has moved to [place] and is requesting to change locations due to convince. If any questions you can contact pt at [phone]. (Portuguese Speaker) documented in this encounter Plan of Treatment Not on file documented as of this encounter Visit Diagnoses Not on filedocumented in this encounter Care Teams Senior Design Engineer Relationship Specialty Start Date End Date Catherine Jon MD [address] [place] [address] PCP - General Family Medicine 09/21/24 [facility] 07/26/24 Blaire Alcantara MD [facility] [address] [facility] [address] [place] [address] Medical Oncologist Hematology and Oncology 09/21/24 Jung Maxwell MD [facility] [address] [place] [address] Dr Perez [address] [place] [address] Consulting Physician Urology 09/21/24 Bryant Ferro DO Consulting Physician Cardiology 09/21/24 [facility] [address] [place] [address] Consulting Physician Nephrology 09/21/24 Denilson Fay MD, PhD [facility] 180 [place] [address] Consulting Physician Ophthalmology 09/21/24 [employer], CLIP RIVETER Agency 25 [place], [place] [phone] Personal Care Services 09/21/24 documented as of this encounter
--- OUTSIDE RECORDS SUMMARY | 2025-01-25 11:16 | XMS_ITS | Encounter Summary ---
Author Organization [employer] Address 75 [facility] 7t [place] [address] Care Team Providers Care Powder Press Operator Name Role Phone Catherine Jon MD Primary Care Provider [phone] Reason for Visit * Reason Onset Date Comments Nurse Triage 11/07/2024 Encounter Details Date Type Department Care Team ([facility] st Contact Info) Description 11/07/2024 Telephone [facility] MEDICINE 230 [place] [address] Catherine Jon MD [address] [place], [place] [phone] Nurse Triage Social History Tobacco Use Types Packs/Day Years Used Date Smoking Tobacco: Never Passive Smoke Exposure: Never Smokeless Tobacco: Never Housing Stability Answer Date Recorded What is your housing situation today? I have peter ross 08/02/[address] you li [...] encounter Miscellaneous Notes * Telephone Encounter - Otf Bunch - 11/07/2024 3:57 PM EST TC from pt reports having a scab on the back on her head that now hurts and is very itchy Duration 1x week Yoruba speaking documented in this encounter Plan of Treatment Not on file documented as of this encounter Visit Diagnoses Not on filedocumented in this encounter Care Teams Powder Press Operator Relationship Specialty Start Date End Date Catherine Jon MD [address] [place] [address] PCP - General Family Medicine 09/21/24 [facility] 07/26/24 Blaire Alcantara MD [facility] [address] [place] [address] [address] [place] [address] Medical Oncologist Hematology and Oncology 09/21/24 Jung Maxwell MD [facility] [address] [place] [address] Dr Perez [address] [place] [address] Consulting Physician Urology 09/21/24 Bryant Ferro DO Consulting Physician Cardiology 09/21/24 [facility] [address] [place] [address] Consulting Physician Nephrology 09/21/24 Denilson Fay MD, PhD [facility] 180 [place] [address] Consulting Physician Ophthalmology 09/21/24 [employer], REFRACTORY MANAGER Agency 25 [place] [address] Personal Care Services 09/21/24 documented as of this encounter
--- OUTSIDE RECORDS SUMMARY | 2025-01-25 11:16 | XMS_ITS | Encounter Summary ---
Author Organization [employer] Address 75 [facility] 7t [place] [address] Care Team Providers Care Policy Writer Sales Name Role Phone Catherine Jon MD Primary Care Provider Encounter Details Date Type Department Care Team (Late st Contact Info) Description 09/30/2022 Orders Only [facility] MED & PEDS [address] [facility] [place] [address] Anne Gama LPN Social History Tobacco Use Types Packs/Day Years [...] on filedocumented in this encounter Care Teams Policy Writer Sales Relationship Specialty Start Date End Date Catherine Jon MD 505 [place] [address] PCP - General Family Medicine 09/21/24 [facility] 07/[facility]24 Blaire Alcantara MD [facility] [address] [place] [address] St [address] [place] [address] Medical Oncologist Hematology and Oncology 09/21/24 Jung Maxwell MD [facility] [address] [place] [address] [place] [address] Consulting Physician Urology 09/21/24 Bryant Ferro DO Consulting Physician Cardiology 09/21/24 [facility] [address] [place] [address] Consulting Physician Nephrology 09/21/24 Denilson Fay MD, PhD [facility] 180 [place] [address] Consulting Physician Ophthalmology 09/21/24 [employer], DESIGNER/WRITER Agency 25 [place] [address] Personal Care Services 09/21/24 documented as of this encounter
--- OUTSIDE RECORDS SUMMARY | 2025-01-25 11:16 | XMS_ITS | Encounter Summary ---
Author Organization [employer] Address 75 [facility] 7t [place] [address] Care Team Providers Care Mobile Sales Technician Name Role Phone Catherine Jon MD Primary Care Provider [phone] Reason for Visit * Reason Comments Med Refill Encounter Details Date Type Department Care Team ([facility] st Contact Info) Description 11/08/2024 Refill [facility] MEDICINE 230 [place], [place] [phone] Anne Talamantes DO 230 [place] [address] Social History Tobacco Use Types Packs/Day Years [...] on filedocumented in this encounter Care Teams Mobile Sales Technician Relationship Specialty Start Date End Date Catherine Jon MD 505 [place] [address] PCP - General Family Medicine 09/21/24 [facility] 07/26/24 Blaire Alcantara MD [facility] [address] [facility] [address] [place] [address] Medical Oncologist Hematology and Oncology 09/21/24 Jung Maxwell MD [facility] [address] [place] [address] Consulting Physician Urology 09/21/24 Bryant Ferro DO Consulting Physician Cardiology 09/21/24 [facility] [address] [place] [address] Consulting Physician Nephrology 09/21/24 Denilson Fay MD, PhD [facility] 180 [place] [address] Consulting Physician Ophthalmology 09/21/24 [employer], GAME FARM HELPER Agency 25 [place] [address] Personal Care Services 09/21/24 documented as of this encounter
--- OUTSIDE RECORDS SUMMARY | 2025-01-25 11:16 | XMS_ITS | Encounter Summary ---
Author Organization [employer] Address 75 [facility] 7t [place] [address] Care Team Providers Care Tub Wash Operator Name Role Phone Catherine Jon MD Primary Care Provider [phone] Encounter Details Date Type Department Care Team (Late st Contact Info) Description 11/23/2022 Orders Only [facility] MEDICINE 230 [place], [place] [phone] Ana Cristina Haq LPN Social History Tobacco Use Types Packs/Day [...] on filedocumented in this encounter Care Teams Tub Wash Operator Relationship Specialty Start Date End Date Catherine Jon MD 505 [facility] [place] [address] PCP - General Family Medicine 09/21/24 [facility] 07[facility]24 Blaire Alcantara MD [facility] [address] [facility] [address] [place] [address] Medical Oncologist Hematology and Oncology 09/21/24 Jung Maxwell MD [facility] [address] [place] [address] [place] [address] Consulting Physician Urology 09/21/24 Bryant Ferro DO Consulting Physician Cardiology 09/21/24 [facility] [address] [place] [address] Consulting Physician Nephrology 09/21/24 Denilson Fay MD, PhD [facility] 180 [place] [address] Consulting Physician Ophthalmology 09/21/24 [employer], WORD PROCESSOR TECHNICIAN Agency 25 [place] [address] Personal Care Services 09/21/24 documented as of this encounter
--- OUTSIDE RECORDS SUMMARY | 2025-01-25 11:17 | XMS_ITS | Clinical Summary ---
Author Organization [facility] Address [address] [place] [address] Phone Care Team Providers Care Compliance Assistant Name Role Phone Unavailable Primary Care Provider Unavailabl e Social History Tobacco Use Types Packs/Day Years Used Date Smoking Tobacco: Never Assessed Comments Unknown Sex and Gender Information Value Date Recorded Sex Assigned at Not on file Legal Sex Female 3:43 PM EDT Gender Identity Not on file Sexual Orientation Not on file Plan of Treatment Health Maintenance Due Date Last Done Comments Breast Cancer Screening 1963 Diabetes: Annual Foot Exam 1973 Diabetes: Annual Retina Eye Exam 1973 Zoster Vaccines (1 of 2) 1982 Cervical Cancer Screening: Pap Smear 1984 RSV Immunization Adult Patients (1 - Risk 60-74 years 1-dose series) 2023 COVID-19 Vaccine ( season) 2024 03/20/2022, 08/18/2021, 07/28/2021 Colorectal Cancer Screening: Colonoscopy 07/19/2024 Depression Screening 07/19/2024 HIV Screening 07/19/2024 Hepatitis C Screening 07/19/2024 Social Influencers of Health Screening 07/19/2024 Diabetes: Annual Urine Albumin-Creatinine Ratio (uACR) 10/19/2024 Diabetes: Blood Sugar Control Test (HGBA1C) 03/22/2025 09/21/2024 Influenza Vaccine (Season Ended) 2025 08/10/2022, 07/28/2021, 07/08/2017, Additional history exists Diabetes: Annual GFR (Glomerular Filtration Rate) 08/08/2025 08/08/2024, 08/07/2024, 08/01/2024 Hypertension/CHF/CAD Annual BMP Blood Test 08/08/2025 08/08/2024, 08/07/2024, 08/01/2024 Cholesterol Screening (Lipid Panel) 03/03/2029 03/03/2024 DTaP,Tdap,and Td Vaccines (4 - Td or Tdap) 03/20/2032 03/20/2022, 01/09/2010, 01/01/2004 Hepatitis B Vaccines Completed 12/28/2014, 06/28/2013, 06/14/2002 Pneumococcal Vaccine: 50+ Years Completed 03/27/2024, 01/09/2010, 03/23/2002 Pneumococcal Vaccine: Pediatrics (0 to 5 Years) and At-Risk Patients (6 to 64 Years) Completed 03/27/2024, 01/09/2010, 03/23/2002 HIB Vaccines Aged Out No longer eligi ble based on patient's age to complete this topic HPV Vaccines Aged Out No longer eligi ble based on patient's age to complete this topic Hepatitis A Vaccines Aged Out No long er eligible based on patient's age to complete this topic IPV Vaccines Aged Out No longer eligi ble based on patient's age to complete this topic MMR Vaccines Aged Out No longer eligi ble based on patient's age to complete this topic Meningococcal ACWY Vaccine Aged Out N o longer eligible based on patient's age to complete this topic Meningococcal B Vaccine Aged Out No l onger eligible based on patient's age to complete this topic RSV Immunization Patients Under 20 months Aged Out No longer eligible based on patient's age to complete this topic Varicella Vaccines Aged Out No longer eligible based on patient's age to complete this topic Insurance MEDICAID - [place]
--- OUTSIDE RECORDS SUMMARY | 2025-01-25 11:17 | XMS_ITS | Encounter Summary ---
Author Organization [employer] Address 75 [facility] 7t [place] [address] Care Team Providers Care Hall Porter Name Role Phone Catherine Jon MD Primary Care Provider [phone] Reason for Visit * Reason Onset Date Comments Hospital Follow-up 04/11/2024 Encounter Details Date Type Department Care Team ([facility] st Contact Info) Description 04/11/2024 Telephone [facility] MEDICINE 230 [place], [place] [phone] Anne Talamantes DO 230 [place], [place] [phone] Hospital Follow-up Social History Tobacco Use Types Packs/Day Years Used Date Smoking Tobacco: Never Passive Smoke Exposure: Never Smokeless Tobacco: Never Comments Unknown Sex and Gender Information Value Date Recorded Sex Assigned at Female 07/27/2022 10:16 AM EDT Legal Sex Female 10:16 AM EDT Gender Identity Female 07/27/2022 10:16 AM EDT Sexual Orientation Straight 07/27/2022 10 :16 AM EDT documented as of this encounter Miscellaneous Notes * Telephone Encounter - Sam Schulz - 04/11/2024 3:30 PM EDT Tc from pt requesting a HDF appt. Hospital: [facility] Date of admission: 04/07 Discharge date: 04/11 Diagnosed: Kidney Failure documented in this encounter Plan of Treatment Not on file documented as of this encounter Visit Diagnoses Not on filedocumented in this encounter Care Teams Hall Porter Relationship Specialty Start Date End Date Catherine Jon MD [address] [place] [address] PCP - General Family Medicine 09/21/24 [facility] 07/26/24 Blaire Alcantara MD [facility] Oncology Center [address] [place] [address] Medical Oncologist Hematology and Oncology 09/21/24 Jung Maxwell MD [facility] Center [address] [place] [address] [place] [address] Consulting Physician Urology 09/21/24 Bryant Ferro DO Consulting Physician Cardiology 09/21/24 [facility] [address] [place] [address] Consulting Physician Nephrology 09/21/24 Denilson Fay MD, PhD [facility] 180 [place], [place] [phone] Consulting Physician Ophthalmology 09/21/24 [employer], EXTRUDER OPERATOR HELPER Agency 25 [place] [address] Personal Care Services 09/21/24 documented as of this encounter
--- OUTSIDE RECORDS SUMMARY | 2025-01-25 11:17 | XMS_ITS | Encounter Summary ---
Author Organization [facility] Address 75 [facility] 7t [place] [address] Care Team Providers Care Embroiderer Hand Name Role Phone Catherine Jon MD Primary Care Provider [phone] Encounter Details Date Type Department Care Team (Late st Contact Info) Description 01/06/2024 Orders Only [facility] MEDICINE 230 [place], [place] [phone] Provider, MD Karoline Social History Tobacco Use Types Packs/Day Years [...] on file documented as of this encounter Procedures Procedure Name Priority Date/Time Associated Diagnosis Comments HM COLONOSCOPY Routine 03/08/2019 11:49 AM EDT documented in this encounter Results * Hm Colonoscopy (03/08/2019 11:49 AM EDT) Historical Provider HEALTH MAINTENANCE Final Result documented in this encounter Visit Diagnoses Not on filedocumented in this encounter Care Teams Embroiderer Hand Relationship Specialty Start Date End Date Catherine Jon MD 505 [facility] [place] [address] PCP - General Family Medicine 09/21/24 [facility] Blaire Alcantara MD [facility] On[facility] Center [address] [facility] [address] [place] [address] Medical Oncologist Hematology and Oncology 09/21/24 Jung Maxwell MD [facility] [address] [place] [address] [place] [address] Consulting Physician Urology 09/21/24 Bryant Ferro DO Consulting Physician Cardiology 09/21/24 [facility] [address] [place] [address] Consulting Physician Nephrology 09/21/24 Denilson Fay MD, PhD [facility] 180 [place] [address] Consulting Physician Ophthalmology 09/21/24 [employer], DIRECTOR OF MANAGED SERVICES Agency [address] [place] [address] Personal Care Services 09/21/24 documented as of this encounter
--- OUTSIDE RECORDS SUMMARY | 2025-01-25 11:17 | XMS_ITS | Clinical Summary ---
Author Organization [facility] Address [address] [place] [address] Phone Care Team Providers Care Application Support Consultant Name Role Phone Anne Talamantes DO Primary Care Provider Unava ilable Allergies No known active allergies Medications amitriptyline (ELAVIL) 50 MG tablet Take 1 tablet by mouth 1 (one) time each day Active Cholecalciferol 50 MCG (1999) capsule Take 1 capsule by mouth 1 (one) time each day Active Dulaglutide (Trulicity) 0.75 MG/0.5ML solution pen-injector Inject 1 pre-filled pen syringe under the skin 1 (one) time per week Active insulin glargine (Lantus SoloStar) 100 UNIT/ML injection Inject 38 Units under the skin 1 (one) time each day Active insulin lispro (HumaLOG) 100 UNIT/ML injection Inject under the skin 1 (one) time each day Active omeprazole (PriLOSEC) [address] capsule Take 1 capsule by mouth 2 (two) times a day Active rosuvastatin (CRESTOR) 40 MG tablet Take 1 tablet by mouth 1 (one) time each day Active aspirin (ST PATRICIA) 81 MG EC tablet Take 1 tablet by mouth 1 (one) time each day Active Dapagliflozin Propanediol (Farxiga) 10 MG tablet Take 10 mg by mouth 1 (one) time each day in the morning Active ferrous sulfate 325 (65 Fe) MG tablet Take 1 tablet (325 mg total) by mouth 2 (two) times a day with meals (breakfast and dinner) 09/23/2023 Active metoprolol tartrate 25 MG tabletIndication s:Chronic kidney disease, stage 4 (severe) (HCC),Hypertensi on,Renal disorder due to type 2 diabetes mellitus <Diabetic nephropathy> (HCC) Take 1 tablet (25 mg total) by mouth every morning and evening 60 tablet 11 11/04/2023 Active Active Problems Problem Noted Date Diagnosed Date Obese class I 06/02/2023 06/02/2023 Basal cell carcinoma of skin 03/02/202302/2023 Type 2 diabetes mellitus 10/22/2021 Hypertension 06/25/2021 Anemia of chronic disease 06/25/2021 Chronic kidney disease, stage 4 (severe) 021 Hypertensive renal disease 02/26/2021 Renal disorder due to type 2 diabetes mellitus 0 02/26/2021 Gastroparesis 10/18/2018 06/02/2023 Chronic low back pain 07/10/2015 06/02/2023 Gastroesophageal reflux disease 07/10/2015 06/02/2023 Hyperlipidemia 07/10/2015 06/02/2023 Peripheral venous insufficiency 07/10/2015 06/02/2023 Retinopathy due to type 2 diabetes mellitus 06/2706/02/2023 Immunizations Immunization Administration Dates Next Due Hepatitis B 12/28/2014,06/28/2013,06/14/2002 Influenza Split 06/28/2013 Influenza, Quadrivalent, Pre servative Free 08/10/2022,07/28/2021,07/08/2017,12/25 Influenza, Quadrivalent, Wit h Preservative 07/10/2015 Pneumococcal Polysaccharide 01/09/2010, 2 Td 03/20/2022,01/01/2004 Tdap 01/09/2010 Family History Medical History Relation Comments Diabetes Mother Hypertension Mother Relation Status Comments Father Mother Social History Tobacco Use Types Packs/Day Years Used Date Smoking Tobacco: Never Smokeless Tobacco: Never Tobacco Cessation:Counseling Given: Not Answered Alcohol Use Standard Drinks/Week Comments No 0 (1 standard drink = 0.6 oz pur e alcohol) Comments Unknown Sex and Gender Information Value Date Recorded Sex Assigned at Not on file Legal Sex Female 5:10 PM EST Gender Identity Not on file Sexual Orientation Not on file Last Filed Vital Signs Vital Sign Reading Time Taken Comments Blood Pressure 134/72 09/23/2023 1:12 PM EST Pulse 86 09/23/2023 1:12 PM EST Temperature - - Respiratory Rate - - Oxygen Saturation 98% 09/23/2022 1:30 PM EST Inhaled Oxygen Concentration - - Weight 79.8 kg (176 lb) 09/23/2023 1:12 PM EST Height 154.9 cm (5' 1 ) 04/03/2020 12:00 PM EDT Body Mass Index 33.25 04/03/2020 12:00 PM EDT Plan of Treatment Health Maintenance Due Date Last Done Comments Breast Cancer Screening 1965 Pneumococcal Vaccine: 50+ Years (3 of 3 - PCV) 01/09/2011 01/09/2010, 03/23/2002 Colorectal Cancer Screening: Annual FOBT 2012 Colorectal Cancer Screening: Colonoscopy 2012 Colorectal Cancer Screening: Sigmoidoscopy 2012 Diabetes: Ophthalmology Exam 10/28/2020 Diabetes: Pedal Pulse Checked 10/28/2020 Diabetes: Sensory Foot Exam 10/28/2020 Diabetes: Visual Foot Exam 10/28/2020 Diabetes: Hemoglobin A1C 11/10/2022 022, 10/24/2021, 10/18/2020 Influenza Vaccine (Season Ended) 2025 08/10/2022, 07/28/2021, 07/08/2017, Additional history exists Pneumococcal Vaccine: Peds (0 to 5 Years) and At-Risk Patients (6 to 49 Years) Discontinued 01/09/2010, 03/23/2002 Hepatitis B Vaccine Aged Out 12/28/2014, 06/28/2013, 06/14/2002 No longer eligible based on patient's age to complete this topic Procedures Procedure Name Priority Date/Time Associated Diagnosis Comments EXT RESULT ENTRY Routine 08/10/2022 from Last 3 Months or Most Recently Relevant to Health Maintenance Results * (ABNORMAL) EXT RESULT ENTRY (08/10/2022) WBC 8.2 3.3 - 10.0 10*3/ML Red Blood Cell Count 3.28 Hemoglobin 9.6(A) 12.0 - 16.0 Hematocrit 28.9(A) 36.0 - 46.0 Platelets 226 150 - 399 10*3/UL MCV 88.1 82.0 - 108.0 Sodium 135(A) 137 - 147 Potassium 4.3 3.4 - 5.5 Chloride 101.0 99.0 - 108.0 Carbon Dioxide 25 mmol/L Glucose 200 60 - 200 BUN 42(A) 4 - 21 mg/dL Creatinine 3.52(A) 0.50 - 1.10 mg/dL Total Protein 7.4 6.4 - 8.2 G/DL BUN/Creatinine Ratio 12 Albumin 3.9 3.5 - 5.0 g/dL Calcium 9.2 8.7 - 10.7 mg/dL eGFR Non-Afr Mauritian 14 Total Bilirubin 0.4 MG/DL Bilirubin Direct 0.1 ALT (SGPT) 13 U/L AST (SGOT) 12 U/L Alkaline Phosphatase 102 U/L Vitamin D, 25-OH, Total 38 ng/mL Hemoglobin A1C 7.6(A) 4.0 - 6.0 Alb/Creat Ratio, Ur 3,229 mg/g Creat Triglycerides 202 Cholesterol, Total 130 HDL 35 mg/dL LDL-Calculated 68 08/10/2022 [facility] Provider LAB BLOOD ORDERABLES Jolanta l Result from Last 3 Months or Most Recently Relevant to Health Maintenance Insurance [place] Care Teams Application Support Consultant Relationship Specialty Start Date End Date Anne Talamantes DO [address] [place] [address] PCP - General 10/07/20
--- OUTSIDE RECORDS SUMMARY | 2025-01-25 11:17 | XMS_ITS | Encounter Summary ---
Author Organization [employer] [facility] Address [address] [place] [address] [address] [place] [address] Care Team Providers Care Peoplesoft Crm Developer Name Role Phone Catherine Jon MD Primary Care Provider [phone] Reason for Visit * Reason Comments Med Refill Encounter Details Date Type Department Care Team ([facility] st Contact Info) Description 02/26/2023 Refill [facility] [address] [place], [place] [phone] Claribel Dalton MD [address] [place] [address] Type 2 diabetes mellitus with hyperglycemia, unspecified whether watermelon inspector insulin use (CMS/[facility]) Social History Tobacco Use Types Packs/Day Years [...] documented as of this encounter Visit Diagnoses Diagnosis Type 2 diabetes mellitus with hyperglycemia, unspecified whether mcfp insulin use (CMS/[facility]) documented in this encounter Care Teams Peoplesoft Crm Developer Relationship Specialty Start Date End Date Catherine Jon MD [address] [facility] [place] [address] PCP - General Family Medicine 09/21/24 [facility] 07/26/24 Blaire Alcantara MD [facility] [address] [place] [address] [address] [place] [address] Medical Oncologist Hematology and Oncology 09/21/24 Jung Maxwell MD [facility] [address] [place] [address] [place] [address] Consulting Physician Urology 09/21/24 Bryant Ferro DO Consulting Physician Cardiology 09/21/24 [facility] [address] [place] [address] Consulting Physician Nephrology 09/21/24 Denilson Fay MD, PhD [facility] [address] [place] [address] Consulting Physician Ophthalmology 09/21/24 [employer], PHARMACIST ASSISTANT Agency [address] [place] [address] Personal Care Services 09/21/24 documented as of this encounter
--- OUTSIDE RECORDS SUMMARY | 2025-01-25 11:17 | XMS_ITS | Encounter Summary ---
Author Organization [employer] Address [address] [facility] 7t [place] [address] Care Team Providers Care Forensic Chemist Name Role Phone Catherine Jon MD Primary Care Provider [phone] Reason for Visit * Reason Comments Med Refill Encounter Details Date Type Department Care Team ([facility] st Contact Info) Description 09/18/2024 Refill [facility] [address] [place], [place] [phone] Anne Talamantes DO [address] [place] [address] Social History Tobacco Use Types [...] on filedocumented in this encounter Care Teams Forensic Chemist Relationship Specialty Start Date End Date Catherine Jon MD [address] [place] [address] PCP - General Family Medicine 09/21/24 [facility] 07/26/24 Blaire Alcantara MD [facility] [address] [facility] [address] [place] [address] Medical Oncologist Hematology and Oncology 09/21/24 Jung Maxwell MD [facility] [address] [place] [address] Consulting Physician Urology 09/21/24 Bryant Ferro DO Consulting Physician Cardiology 09/21/24 [facility] [address] [place] [address] Consulting Physician Nephrology 09/21/24 Denilson Fay MD, PhD [facility] [address] [place] [address] Consulting Physician Ophthalmology 09/21/24 [employer], SENIOR LOGISTICS MANAGER Agency [address] [place] [address] Personal Care Services 09/21/24 documented as of this encounter
--- OUTSIDE RECORDS SUMMARY | 2025-01-25 11:17 | XMS_ITS | Encounter Summary ---
Author Organization [employer] Address [address] [facility] 7t [place] [address] Care Team Providers Care Security Guard Supervisor Name Role Phone Catherine Jon MD Primary Care Provider [phone] Encounter Details Date Type Department Care Team (Late st Contact Info) Description 03/02/2023 Orders Only [facility]S [address] [place] [address] Anne aGma LPN Social History Tobacco Use Types Packs/Day [...] on filedocumented in this encounter Care Teams Security Guard Supervisor Relationship Specialty Start Date End Date Catherine Jon MD [address] [place] [address] PCP - General Family Medicine 09/21/24 [facility]24 Blaire Alcantara MD [facility] [address] [place] [address] [address] [place] [address] Medical Oncologist Hematology and Oncology 09/21/24 Jung Maxwell MD [facility] [address] [place] [address] [place] [address] Consulting Physician Urology 09/21/24 Bryant Ferro DO Consulting Physician Cardiology 09/21/24 [facility] [address] [place] [address] Consulting Physician Nephrology 09/21/24 Denilson Fay MD, PhD [facility] [address] [place] [address] Consulting Physician Ophthalmology 09/21/24 [employer], ASSOCIATE PROFESSOR OF THEOLOGY Agency [address] [place] [address] Personal Care Services 09/21/24 documented as of this encounter
--- OUTSIDE RECORDS SUMMARY | 2025-01-25 11:17 | XMS_ITS | Encounter Summary ---
Author Organization [employer] Address [address] [facility] 7t [place] [address] Care Team Providers Care Home Health Speech Therapist Name Role Phone Catherine Jon MD Primary Care Provider [phone] Encounter Details Date Type Department Care Team (Late st Contact Info) Description 01/21/2023 Orders Only [facility] MED & PEDS [address] [place] [address] Anne Gama LPN Social History Tobacco Use [...] on filedocumented in this encounter Care Teams Home Health Speech Therapist Relationship Specialty Start Date End Date Catherine Jon MD [address] [place] [address] PCP - General Family Medicine 09/21/24 [facility]24 Blaire Alcantara MD [facility] [address] [place] [address] [address] [place] [address] Medical Oncologist Hematology and Oncology 09/21/24 Jung Maxwell MD [facility] [address] [place] [address] [place] [address] Consulting Physician Urology 09/21/24 Bryant Ferro DO Consulting Physician Cardiology 09/21/24 [facility] [address] [place] [address] Consulting Physician Nephrology 09/21/24 Denilson Fay MD, PhD [facility] [address] [place] [address] Consulting Physician Ophthalmology 09/21/24 [employer], DISPENSING OPTICIAN Agency [address] [place] [address] Personal Care Services 09/21/24 documented as of this encounter
--- OUTSIDE RECORDS SUMMARY | 2025-01-25 11:17 | XMS_ITS | Clinical Summary ---
Author Organization [employer] Address [address] [place] [address] Care Team Providers Care Refrigeration Systems Installer Name Role Phone Catherine Jon MD Primary Care Provider [phone] Allergies No known active allergies Medications Trulicity 1.5 MG/0.5ML solution pen-injectorIndi cations:Type 2 diabetes mellitus with other specified complication, with long-term current use of insulin ([facility]) INJECT ONE PEN (=1.5MG) SUBCUTANEOUSLY ONCE A WEEK DIRECTED 2 mL 09/06/20 23 Active Pentips 32G X 4 MM misc USE DIRECTED WITH lantus AND humalog 100 each 11 03/14/20 24 Active Blood Glucose Monitoring Suppl (FreeStyle Mason Lite) w/Device kit Use to test blood sugar 3 times daily 1 kit 03/28/20 24 Active TRUEplus Lancets 33G miscIndications: Diabetic nephropathy associated with type 2 diabetes mellitus ([facility]) TEST BLOOD SUGAR SIX TIMES DAILY 200 each 11 04/17/20 24 Active FREESTYLE LITE test stripIndications :Type 2 diabetes mellitus with diabetic nephropathy, with long-term current use of insulin ([facility]) TEST BLOOD SUGAR SIX TIMES DAILY 150 strip 7 07/11/20 24 Active cinacalcet (Sensipar) 30 MG tablet Take 1 tablet by mouth 3 (three) times a week. 06/07/20 24 Active metoprolol tartrate (Lopressor) 50 MG tablet Take 1 tablet by mouth 2 times daily. 07/18/20 24 Active oxybutynin (Ditropan) 5 MG tablet TAKE 1 TABLET BY MOUTH EVERY 8 HOURS FOR BLADDER SPASMS 08/22/20 24 Active sevelamer carbonate (Renvela) 800 MG tablet Take 800 mg by mouth with breakfast, with lunch, and with evening meal. 09/08/20 24 Active calcitriol (Rocaltrol) 0.25 MCG capsule Take 0.25 mcg by mouth in the morning. 02/22/20 24 Active aspirin (Aspirin Adult Low Strength) 81 MG EC tablet Take 1 tablet (81 mg) by mouth in the morning. 90 tablet 1 09/21/20 24 Active glucose-vitamin C 4-6 GM-MG oral gel Chew 1 tablet if needed for low blood sugar. 50 tablet 09/21/20 24 Active insulin glargine (Lantus SoloStar) 100 UNIT/ML pen Inject 25 Units under the skin at bedtime. 15 mL 2 09/21/20 24 Active Continuous Glucose Sensor (FreeStyle Gary 2 Sensor) [employer] Apply 1 sensor every 14 days 2 each 09/21/20 24 Active Continuous Glucose Eastern Philosophy Professor (FreeStyle Gary 2 Comstock) device Scan sensor every 8 hours 1 each 09/21/20 24 Active hydrALAZINE (Apresoline) 10 MG tabletIndication s:Essential hypertension Take 1 tablet (10 mg) by mouth 2 times daily. 60 tablet 10/06/19 25 026 Active Alcohol Swabs (Alcohol Prep) 70 % padsIndications: Type 2 diabetes mellitus with other specified complication, unspecified whether halfway insulin use ([facility]) Test blood glucose QID 100 each 11 10/12/19 25 Active Ferrous Sulfate (iron) 325 (65 Fe) MG tablet TAKE 1 TABLET BY MOUTH EVERY EVENING 90 tablet 1 11/07/19 25 Active D3 Super Strength 50 MCG (2000 UT) capsule TAKE 1 CAPSULE BY MOUTH EVERY MORNING 90 capsule 1 11/07/19 25 Active Senna S 8.6-50 MG tablet Take 1 tablet by mouth if needed at bedtime for constipation. 30 tablet 1 11/10/19 25 Active rosuvastatin (Crestor) 40 MG tablet Take 1 tablet (40 mg) by mouth at bedtime. 90 tablet 1 11/10/19 25 Active insulin lispro (HumaLOG) 100 UNIT/ML injectionIndicat ions:Type 2 diabetes mellitus with hyperglycemia, unspecified whether halfway insulin use ([facility]) INJECT 8-18 UNITS SUBCUTANEOUSLY THREE TIMES DAILY BEFORE MEALS DIRECTED 15 mL 2 11/30/19 25 Active Eliquis 2.5 MG tablet TAKE 1 TABLET BY MOUTH TWICE DAILY IN THE MORNING AND IN THE EVENING 60 tablet 1 12/08/19 25 Active amitriptyline (Elavil) 50 MG tabletIndication s:Type 2 diabetes mellitus with diabetic neuropathy, unspecified whether halfway insulin use ([facility]) TAKE 1 TABLET BY MOUTH AT BEDTIME 30 tablet 1 12/08/19 25 Active omeprazole (PriLOSEC) [address] capsule TAKE 1 CAPSULE BY MOUTH TWICE DAILY IN THE MORNING AND IN THE EVENING BEFORE MEALS 180 capsule 12/12/19 25 Active Active Problems Problem Noted Date Diagnosed Date Acute internal jugular vein thrombosis Overview (09/21/2024): Dx R sided IJV thrombosis, treated with eliquis, followed by hematology (Jul 2024) Assessment & Plan (09/21/2024 11:14 AM EST): Dx on Jul 2024, on eliquis, cont following with hematology AVF (arteriovenous fistula) 09/21/2024 [facility] (current) use of insulin 09/21/2024 Pacemaker 09/21/2024 Progressive macular hypomelanosis 09/21/2024 Unstable gait 09/21/2024 Cardiomyopathy 05/12/2024 Bladder cancer 05/12/2024 History of adenomatous polyp of colon 05/12/2024 Secondary renal hyperparathyroidism 05/12/2024 Basal cell carcinoma of skin 03/02/2023 Anemia of chronic disease 06/25/2021 End stage renal disease on dialysis 02/26/2021 Diabetic nephropathy associa lynda with type 2 diabetes mellitus 02/26/2021 Hypertensive renal disease 02/26/2021 Gastroparesis 10/18/2018 Chronic low back pain 07/10/2015 Diabetic retinopathy associa lynda with type 2 diabetes mellitus 07/10/2015 Gastroesophageal reflux disease 07/10/2015 Hyperlipidemia 07/10/2015 Essential hypertension 07/10/2015 Assessment & Plan (09/21/2024 11:44 AM EST): Nursing Visit Instructions: - If SBP < 130/DBP <80 mmHg in more than 75% of home self-monitoring, continue current medication regimen and make f/u with PCP in 3 month - If SBP >130-165/DBP >80-115 mmHg , add hydralazine 10 mg BID and f/u with PCP in 1 month - If SBP > 165/ DBP> 115 mmHg, consult with covering provider - If SBP <90/DBP <50 mmHg, consult with covering provider. BP is elevated. Follow up on 10/06/2024 with nurse and at home readings. Will reassess medications next visit. Peripheral venous insufficiency 07/10/2015 Type 2 diabetes mellitus 07/10/2015 Assessment & Plan (09/21/2024 11:46 AM EST): Discussed medications and refills as needed. BS is elevated today. Goal BS fasting is 80-130, after eating less than 180. Follow up on 10/06/2024 with nurse and BS numbers. Advised to follow up with [facility] to restart Farxiga. Ordering lab work for further evaluation. Advised to bring paperwork for Advanced Directives next visit. Follow up in 4 months. Encounters Date Type Department Care Team Description 12/10/2024 Refill [facility] [address] [place] [address] Anne Talamantes DO 12/08/2024 Population Health Risk Score [facility] Department [address] [id number] Provider, Population Health Generic 12/07/2024 Refill [facility] [address] [place] [address] Jonnathan Navarrete MD Type 2 diabetes mellitus with diabetic neuropathy, unspecified whether terminal makeup operator insulin use ([facility]) 12/07/2024 Refill [facility] [address] [place] [address] Catherine Jon MD Type 2 diabetes mellitus with diabetic neuropathy, unspecified whether terminal makeup operator insulin use ([facility]) 11/26/2024 Refill [facility] [address] [place] [address] Anne Talamantes DO Type 2 diabetes mellitus with hyperglycemia, unspecified whether halfway insulin use (CMS/HCC) 11/23/2024 Telephone [facility] [address] [place] [address] Catherine Jon MD Call Back Request 11/10/2024 Refill [facility] [address] [place] [address] Catherine Jon MD 11/08/2024 Telephone [facility] [address] [place] [address] Catherine Jon MD No Show 11/08/2024 Refill [facility] [address] [place] [address] Catherine Jon MD 11/08/2024 Refill [facility] [address] [place] [address] Anne Talamantes, DO 11/07/2024 Telephone [facility] [address] [place] [address] Catherine Jon MD Nurse Triage 11/06/2024 Patient Outreach [facility] [address] [place] [address] Catherine Jon MD Care Coordination (Outreach) 11/06/2024 Telephone [facility] [address] [place] [address] Chelly Quintana RN Care Coordination ([facility] program graduation) 11/06/2024 Travel 11/06/2024 Refill [facility] [address] [place] [address] Anne Talamantes, 10/31/2024 Patient Outreach [facility] [address] [place] [address] Catherine Jon MD Care Coordination (Outreach) from Last 3 Months Immunizations Name Administration Dates Next Due Hep B, adult 12/28/2014,06/28/2013,06/14/2002 Influenza injectable quadriv alent IIV4 with preservative 07/10/2015 Influenza injectable quadriv alent preservative free 08/10/2022,07/28/2021,07/08/2017,12/25 Influenza, IIV3, injectable 07/31/2014, 1,06/17/2010 Influenza, Split (incl. nunu fied surface antigen) 06/28/2013 Pfizer Covid-19 Vaccine 12+ 08/18/2021, Pfizer Covid-19 Vaccine 12+ alice-sucrose (Morgan Cap) 03/20/2022 Pneumococcal Conjugate PCV 20 03/27/2024 Pneumococcal Polysaccharide PPSV23 01/09/2010, TD (adult), 2 Lf tetanus tox oid, preservative free, adsorbed 03/20/2022,01/01/2004 Tdap 01/09/2010 Social History Tobacco Use Types Packs/Day Years Used Date Smoking Tobacco: Never Passive Smoke Exposure: Never Smokeless Tobacco: Never Tobacco Cessation:Counseling Given: Not Answered Housing Stability Answer Date Recorded What is [...] Orientation Straight 07/27/2022 10 :16 AM EDT Last Filed Vital Signs Vital Sign Reading Time Taken Comments Blood Pressure 160/78 10/06/2024 12:13 PM EST ma nually Pulse 100 10/06/2024 12:09 PM EST Temperature 36.6 ??C (97.8 ??F) 09/21/2024 10:[address] Respiratory Rate 20 09/21/2024 10:53 AM EST Oxygen Saturation 99% 09/21/2024 10:53 AM EST Inhaled Oxygen Concentration - - Weight 67.3 kg (148 lb 6.4 oz) 10/06/2024 12:09 PM EST Height 154 cm (5' 0.63 ) 09/21/2024 10:53 AM EST Body Mass Index 28.38 09/21/2024 10:53 AM EST Plan of Treatment Health Maintenance Due Date Last Done Comments CT Colonography 1965 Depression Screening 1965 FIT DNA/Cologuard 1963 FIT 1965 FOBT 1965 HIV Screening 1965 Sigmoidoscopy 1965 Derm Melanoma Skin Check 03/07/1964 Diabetes: Foot Exam 1973 Eye Exam 1973 Alcohol/Substance Use Screening 1975 Hepatitis C Screening 1981 Pap Smear 1984 Zoster Vaccines (1 of 2) 2013 RSV Patients and Patients Aged 60 years or older (1 - Risk 60-74 years 1-dose series) 2023 Colonoscopy 03/08/2024 03/08/2019 Colorectal Cancer Screening 03/08/2024 COVID-19 Vaccine ( season) 2024 03/20/2022, 08/18/2021, 07/28/2021 Influenza Vaccine (#1) 2024 , 07/28/2021, 07/08/2017, Additional history exists Lipid Panel 03/03/2025 03/03/2024, 07/28, 10/24/2021, Additional history exists Diabetes: Hemoglobin A1C 03/22/2025 024, 03/27/2024, 08/10/2022, Additional history exists SDOH Screening 08/02/2025 08/02/2024 Tobacco Screening 09/21/2025 09/21/2024 Cervical Cancer Screening 11/22/2025 HPV/Cotest 11/22/2025 11/22/2020, 07/23/2017 Mammogram 02/24/2026 02/25/2024, 09/27, 10/15/2022, Additional history exists DTaP/Tdap/Td Vaccines (3 - Td or Tdap) 03/20/2032 03/20/2022, 01/09/2010, 01/01/2004 Hepatitis B Vaccines Completed 12/28/2014, 06/28/2013, 06/14/2002 Pneumococcal Vaccine: 50+ Years Completed 03/27/2024, 01/09/2010, 03/23/2002 HIB Vaccines Aged [...] patient's age to complete this topic Meningococcal Vaccine Aged Out No salena miguelina eligible based on patient's age to complete this topic RSV under 20 months Aged Out No longe r eligible based on patient's age to complete this topic Rotavirus Vaccines Aged Out No longer eligible based on patient's age to complete this topic Procedures Procedure Name Priority Date/Time Associated Diagnosis Comments POCT GLYCATED HEMOGLOBIN, TOTAL Routine 09/21/2024 11:15 AM EST Type 2 diabetes mellitus with diabetic nephropathy, with long-term current use of insulin ([facility]) LIPID PANEL, STANDARD Routine 03/03/2024 1:43 PM EDT Other fatigue BI MAMMOGRAM SCREENING TOMOSYNTHESIS BILATERAL Routine 02/25/2024 3:03 PM EDT HPV MRNA E6/E7 REFLEX TO HPV 16, 18/45 Routine 11/22/2020 12:00 AM EST HM COLONOSCOPY Routine 03/08/2019 11:49 AM EDT from Last 3 Months or Most Recently Relevant to Health Maintenance Results * (ABNORMAL) POCT HGB A1C (09/21/2024 11:15 AM EST) Hemoglobin A1C 6.9(A) 4.0 - 6.0 % QC Media Lot # [id number] Lot# Expiration Date [id number] Blood 09/21/2024 11:1 5 AM EST us Catherine Jon MD POINT OF CARE TEST ENTER/EDIT ORDERABLES Final Result * (ABNORMAL) Lipid Panel, Standard (03/03/2024 1:43 PM EDT) Triglycerides 201(H) <150 mg/dL [facility] Comment:Desirable Triglyceri de: less than 150 mg/dLBorderline High Triglyceride 150-199 mg/dLHigh Triglyceride: 200-499 mg/dLVery High Triglyceride: greater than or equal to 5OO mg/dL Cholesterol 146 <200 mg/dL [facility] Comment:Desirable Cholestero l: less than 200 mg/dLBorderline High Cholesterol: 200-239 mg/dLHigh Cholesterol: greater than 239 mg/dL LDL Cholesterol Calculated 69 <100 mg/dL [facility] Comment:Desirable LDL: less than 100 mg/dLNear Optimal/Above Optimal LDL: 110- 129 mg/dLBorderline High LDL: 130-159 mg/dLHigh LDL: 160-189 mg/dLVery High LDL: greater than or equal to 190 mg/dL HDL Cholesterol 37(L) >40 mg/dL [facility] Comment:Desirable HDL: great er than 40 mg/dL Note: This HDL assay may give artificially low results in patients with liver disease. Blood Venous blood specimen / Unknown 03/03/2024 1:43 PM EDT 03/03/2024 3:58 PM EDT us Aby Vazquez MD LAB BLOOD ORDERABLES Final Resul t [facility] [address] [place] [address] [phone] * BI Mammogram Screening Tomosynthesis Bilateral (02/25/2024 3:03 PM EDT) Anatomical Region Laterality Modality Breast Bilateral Mammography 02/25/2024 3:03 PM EDT Narrative 03/21/2024 4:41 PM EDT ? [facility] ? [address] ?[place] [address] ? Mammography Report ? Signed ? Patient: Max,Jazmine ?MR#: [id number] ?? [id number] ? : 1965 ?Acct:[id number] ? Age/Sex: 58 / F ?ADM Date: 02/25/24 ? Loc: HO.MAMMO ? Attending Dr: Anne Talamantes DO ? Ordering Physician: Anne Talamantes DO ?Results: 1N ?? egative ? Date of Service: 02/25/24 ?Follow Up: 1 Year From Orig ?? inal Mammogram ? Procedure(s): MM tomosynthesis screening BI ?? Accession Number(s): [id number] ? cc: Anne Talamantes DO ? EXAMINATION: ?? MM SCREENING DIGITAL BREAST TOMOSYNTHESIS, BILATERAL ? CLINICAL INFORMATION: ? Screening. Asymptomatic. ? COMPARISON: ?? Mammography: This study is compared with prior exams dating back to ?? 2018. ? TECHNIQUE: ?? Digital breast tomosynthesis is performed in both the craniocaudal and ?? mediolateral oblique views along with computer-aided detection (CAD). ?? Synthesized 2D images are generated from the tomosynthesis. ? FINDINGS: ?? There are scattered areas of fibroglandular density (ACR BI-RADS breast ?? composition Category b). ? There is a pacemaker in superior portion of the left side of the chest. ?? There are no significant masses, abnormal calcifications, or other ?? abnormalities. ? MM/MM tomosynthesis screening BI ?? IMPRESSION: ?? No mammographic evidence of malignancy. ? ASSESSMENT: ? BI-RADS BI-RADS 1 - Negative ? RECOMMENDATION: ?? Routine annual mammography screening. ? 1 year F/U ? This examination should not preclude the clinical evaluation of a ?? suspicious palpable abnormality. ? This patient's information was entered into a reminder system with a ?? target due date for their next mammogram. ? Dictated By: ?Iliana Dumont MD ? Signed By: ?<Electronically signed by Iliana Dumont MD in OV> ? 03/21/247 ? DD/ 1503 ? TD/TT: ? Nursing Home Aide: ? Procedure Note [email or web address], Image - 03/21/2024 [place] [facility] [address] [place] [address] Mammography Report Signed Patient: Jazmine MaxMR#: [id number] : 1965Acct:[id number] Age/Sex: 58 / FADM Date: 02/25/24 Loc: HO.MAMMO Attending Dr: Anne Talamantes DO Ordering Physician: Anne Talamantesults: 1N egative Date of Service: 02/25/24Follow Up: 1 Year From Orig inal Mammogram Procedure(s): MM tomosynthesis screening BI Accession Number(s): [id number] cc: Anne Talamantes DO EXAMINATION: MM SCREENING DIGITAL BREAST TOMOSYNTHESIS, BILATERAL CLINICAL INFORMATION: Screening. Asymptomatic. COMPARISON: Mammography: This study is compared with prior exams dating back to 2018. TECHNIQUE: Digital breast tomosynthesis is performed in both the craniocaudal and mediolateral oblique views along with computer-aided detection (CAD). Synthesized 2D images are generated from the tomosynthesis. FINDINGS: There are scattered areas of fibroglandular density (ACR BI-RADS breast composition Category b). There is a pacemaker in superior portion of the left side of the chest. There are no significant masses, abnormal calcifications, or other abnormalities. MM/MM tomosynthesis screening BI IMPRESSION: No mammographic evidence of malignancy. ASSESSMENT: BI-RADS BI-RADS 1 - Negative RECOMMENDATION: Routine annual mammography screening. 1 year F/U This examination should not preclude the clinical evaluation of a suspicious palpable abnormality. This patient's information was entered into a reminder system with a target due date for their next mammogram. Dictated By: Iliana Dumont MD Signed By: <Electronically signed by Iliana Dumont MD in OV> 03/21/24 1637 DD/ 1503 TD/TT: Nursing Home Aide: Anne Talamantes DO IMG BI PROCEDURES Final Resu lt * HPV mRNA E6/E7 REFLEX TO HPV 16, 18/45 (11/22/2020 12:00 AM EST) HPV nRNA E6/E7 Not Detected Not Detected [facility] Comment: Methodology: Liaison Engineer-Mediated Amplification This assay detects E6/E7 viral messenger RNA (mRNA) from 14 high-risk HPV types (16,18,31,33,35,39,45,51,52,56,58,59,66,68). ? The analytical performance characteristics of this assay have been determined by [employer]. The modifications have not been cleared or approved by the FDA. This assay has been validated pursuant to the CLIA regulations and is used for clinical purposes. ?? For additional information, please refer to http://education.[employer]/TUR391m1 (This link if provided for information/ educational purposes only.) 11/22/2020 Anne Talamantes DO LAB CYTOLOGY ORDERABLES Jolanta l Result [facility] [address] [place] [address], * Hm Colonoscopy (03/08/2019 11:49 AM EDT) Historical Provider HEALTH MAINTENANCE Final Result from Last 3 Months or Most Recently Relevant to Health Maintenance Insurance [facility] C3 Care Teams Refrigeration Systems Installer Relationship Specialty Start Date End Date Catherine Jon MD [address] [place] [address] KASSANDRA ROSSI [address] PCP - General Family Medicine 09/21/24 [facility] 07/26/24 Blaire Alcantara MD [facility] [address] [place] [address] Medical Oncologist Hematology and Oncology 09/21/24 Jung Maxwell MD [facility] [address] [place] [address] [place] [address] Consulting Physician Urology 09/21/24 Bryant Ferro DO Consulting Physician Cardiology 09/21/24 [facility] [address] [place] [address] [place] [address] Consulting Physician Nephrology 09/21/24 Denilson Fay MD, PhD [facility] [place] - [address] [address] Consulting Physician Ophthalmology 09/21/24 [employer], GASOLINE CATALYST OPERATOR Agency [address] [place] [address] Personal Care Services 09/21/24
== END 2025-01-25 11:13 | disposition home or self-care (01) ==
LOC: HO.HUSH 10:01
PROVIDERS: PCP Family Medicine; Visit Provider Urology
DX: C67.9 Malignant neoplasm of bladder, unspecified (principal)
CPT/HCPCS: 52000; 99213

== ENCOUNTER → 2025-01-25 10:00 | Outpatient (BNVA) | payer MEDICAID, SELFPAY | PROVIDERS: PCP Family Medicine; Visit Provider Urology | DX: C67.9 Malignant neoplasm of bladder, unspecified (principal) | CPT/HCPCS: 52000; 81003; 99212 ==

== ENCOUNTER → 2025-01-25 | Outpatient (BNV) | payer MEDICAID, SELFPAY | PROVIDERS: PCP Family Medicine; Visit Provider Internal Medicine Nephrology | DX: N18.6 End stage renal disease (principal) | CPT/HCPCS: 90961 ==

== ENCOUNTER 2025-02-01 12:17 | Outpatient (REF) | payer MEDICAID, SELFPAY ==
--- NOTE | ~2025-02-01 | XR_ITS ---
EXAMINATION: XR CHEST CLINICAL INFORMATION: N18.6 - End stage renal disease COMPARISON: August 07, 2024 TECHNIQUE: 2 views of the chest were obtained. FINDINGS: No consolidation, pleural fissure pneumothorax. Cardiomediastinal silhouette size is mildly prominent. 3. Intact electrode leads in the right heart chambers and coronary sinus. Right-sided dual-lumen central venous line catheter ends in the right atrium. S-shaped curvature of the thoracolumbar spine and multilevel marginal osteophyte formation and syndesmophyte formation. Metallic reservoir of the pacemaker overlapping the peripheral left hemithorax. XR/XR chest 2V IMPRESSION: No acute airspace disease or pulmonary edema. Stable lungs. Electronically signed by: Shelton Levine MD 02/01/2025 12:40 PM EDT
--- OUTSIDE RECORDS SUMMARY | 2025-02-01 13:37 | XMS_ITS | Encounter Summary ---
Author Organization [employer] Address [address] [place] [address] Care Team Providers Care Manager Of Training And Development Name Role Phone Catherine Jon MD Primary Care Provider [phone] Reason for Visit * Reason Comments Med Refill Encounter Details Date Type Department Care Team (Late st Contact Info) Description 01/28/2025 Refill [facility] [address] [place] [address] Amanda Rider MD [address] [place], [place] [phone] Social History Tobacco Use Types Packs/Day Years Used Date Smoking Tobacco: Never Passive Smoke Exposure: Never Smokeless Tobacco: Never Housing Stability Answer Date Recorded What is your housing situation today? I have petermiguel hawkins 08/02/[address] you [...] on filedocumented in this encounter Care Teams Manager Of Training And Development Relationship Specialty Start Date End Date Catherine Jon MD [address] [place] [address] PCP - General Family Medicine 09/21/24 [facility] 07/26/24 Blaire Alcantara MD [facility] [address] [facility] [address] [place] [address] Medical Oncologist Hematology and Oncology 09/21/24 Jung Maxwell MD [facility] [address] [place] [address] Consulting Physician Urology 09/21/24 Bryant Ferro DO Consulting Physician Cardiology 09/21/24 [facility] [address] [place] [address] Consulting Physician Nephrology 09/21/24 Denilson Fay MD, PhD [facility] [address] [place] [address] Consulting Physician Ophthalmology 09/21/24 [employer], [employer] Agency [address] [place] [address] Personal Care Services 09/21/24 documented as of this encounter
--- OUTSIDE RECORDS SUMMARY | 2025-02-01 13:37 | XMS_ITS ---
Author Organization Estuardo Kenyon III, MD Address [address] [place] [address] Care Team Providers Care Monument Setter Name Role Phone YENI SALGUERO Primary Care Provider Estuardo Kenyon Unavailable [phone] Allergies Allergen (clinical drug ingredient) Drug/Non Drug [...] Provider Specialty Oncology General Notes Esther Hernandez PLASTER PATTERNMAKER 02/26 02:14:17 PM EDT > pt dtr Olga called given appt information and ref/progress notes and all testing faxed to Dr Zhou at [phone] Referral Priority Routine Referral Appointment Date 03/17/2024 [...] Problem Status W/U Status Risk Notes Problem 57361911 Cardiomyopathy, unspecified type (I42.9) Active confirmed Problem 31158663 Chronic renal failure, stage 4 (severe) (N18.4) Active confirmed We have mad e the tank car cleaner aware of the situation. The fistula in the left upper lung appears to be maturing well. The dialysis catheter and right upper chest wall is intact and seems to function normally. Problem 80605191 Hypertension, unspecified type (I10) Active confirmed Problem [id number] Progressive macular hypomelanosis (L81.6) Active confirmed Problem 161060259 AVF (arteriovenous fistula) (I77.0) Active confirmed Problem 08764902 End-stage renal disease (N18.6) Active confirmed Problem 435767391 Pacemaker (Z95.0) Active confirmed Problem 835277519 History of adenomatous polyp of colon (Z86.010) Active confirmed Problem 380456453 Type 2 diabetes mellitus with diabetic chronic kidney disease (E11.22) Active confirmed Problem 093483314 Chronic kidney disease, stage 5 (N18.5) Active confirmed Problem 630312295 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 Problem 01481889 Secondary hyperparathyroid ism of renal origin (N25.81) Active confirmed She is in end-stage renal disease. Problem 779600970 Malignant neoplasm of urinary bladder, unspecified site [...] Date Provider Diagnosis Estuardo Kenyon III, MD [address] [place] [address] [address] [place], [place] [address] 03/16/2024 Estuardo Kenyon Chronic renal failur e, stage 4 (severe) N18.4 ; Malignant neoplasm of urinary bladder, unspecified site C67.9 ; Type 2 diabetes mellitus with diabetic nephropathy, unspecified whether chcf insulin use E11.21 ; Secondary hyperparathyroidism of [...] (ICD-10 - N18.4) We have made the tank car cleaner aware of the situation. The fistula in [...] apoorva itus with diabetic nephropathy, unspecified whether assistant terminal manager insulin use (ICD-10 - E11.21) Diabetes currently [...] * Jazmine RILEYDOB: [birth year] (58 yo F)Acc No.[id number]:03/16/2024 Patient:?Jazmine Riley Provider:?Estuardo Kenyon MD :1965???Age:58 Y???Sex:Female D ate:03/16/2024 Address:[address] [place] [address] STE[place] [id number] Pcp:YENI SALGUERO Subjective: * Chief Complaints: * [...] yet as it is still healing. Her tank car cleaner is Dr. Martinez. She receives primary care at the [facility]. A CT scan of the abdomen at the [facility] recently showed a large mass in [...] have referred her to medical oncology at [facility] for further staging and definitive treatment. [...] - N18.4 (Primary), We have made the tank car cleaner aware of the situation. The fistula in [...] diabetes mellitus with diabetic nephropathy, unspecified whether assistant terminal manager insulin use - E11.21, Diabetes currently seems [...] ?Reason:urothelial cancer evaluate and treat * Procedure Codes:?94293 TRANS CARE MGMT 7 DAY DISCH * [...] Kenyon MD Date:?02/26 Generated for Maddy car/Faxing/eTransmitting on:?02/01/2025 01:37 PM EDT History and Physical Notes * HPI (History of Present Illness) Category Sub-Category Detail Notes COVID-19 Screening Questions Have you had any new onset fever, chills, cough, congestion, sore throat, shortness of breath, muscle aches?: Yes cough stated longer than 48 hrs, Sore Throat Have you been exposed to the virus withi n the last 10 days?: No Have you travelled internationally in [facility] last 10 days?: No Have you been [...]
--- OUTSIDE RECORDS SUMMARY | 2025-02-01 13:37 | XMS_ITS | Encounter Summary ---
Author Organization [employer] Address [address] [facility] 7t [place] [address] Care Team Providers Care Inter Com Installer Name Role Phone Catherine Jon MD Primary Care Provider [phone] Encounter Details Date Type Department Care Team ([facility] st Contact Info) Description 03/02/2023 Orders Only [facility] CHC MED & PEDS [address] [facility] [place] [address] Anne Gama LPN Social History Tobacco Use [...] on filedocumented in this encounter Care Teams Inter Com Installer Relationship Specialty Start Date End Date Catherine Jon MD [address] [facility] [place] [address] PCP - General Family Medicine 09/[facility]24 [facility] Blaire Alcantara MD [facility] Center [address] [place] [address] [address] [place] [address] Medical Oncologist Hematology and Oncology 09/21/24 Jung Maxwell MD [facility]rology Center [address] [place] [address] [place] [address] Consulting Physician Urology 09/21/24 Bryant Ferro DO Consulting Physician Cardiology 09/21/24 [facility] [address] [place] [address] Consulting Physician Nephrology 09/21/24 Denilson Fay MD, PhD [facility] [address] [place] [address] Consulting Physician Ophthalmology 09/21/24 [employer], MIXING PAN TENDER Agency 25 [place] [address] Personal Care Services 09/21/24 documented as of this encounter
--- OUTSIDE RECORDS SUMMARY | 2025-02-01 13:37 | XMS_ITS | Clinical Summary ---
Author Organization [facility] Address [address] [place] [address] Phone Care Team Providers Care Electrical Engineering Intern Name Role Phone Unavailable Primary Care Provider [...]
--- OUTSIDE RECORDS SUMMARY | 2025-02-01 13:37 | XMS_ITS | Encounter Summary ---
Author Organization [employer] Address [address] [facility] 7t [place] [address] Care Team Providers Care Knife Setter Name Role Phone Catherine Jon MD Primary Care Provider [phone] Reason for Visit * Reason Comments Med Refill Encounter Details Date Type Department Care Team ([facility] st Contact Info) Description 11/08/2024 Refill [facility] MEDICINE 230 [place], [place] [phone] Anne Talamantes DO 230 [place], [place] [phone] Social History Tobacco Use Types Packs/Day Years [...] on filedocumented in this encounter Care Teams Knife Setter Relationship Specialty Start Date End Date Catherine Jon MD 505 [place] [address] PCP - General Family Medicine 09/21/24 [facility] 07/26/24 Blaire Alcantara MD [facility] Center [address] [facility] [address] [place] [address] Medical Oncologist Hematology and Oncology 09/21/24 Jung Maxwell MD [facility] [address] [place] [address] Consulting Physician Urology 09/21/24 Bryant Ferro DO Consulting Physician Cardiology 09/21/24 [facility] [address] [place] [address] Consulting Physician Nephrology 09/21/24 Denilson Fay MD, PhD [facility] 180 [place] [address] Consulting Physician Ophthalmology 09/21/24 [employer], QUALITY REVIEW SPECIALIST Agency 25 [place] [address] Personal Care Services 09/21/24 documented as of this encounter
--- OUTSIDE RECORDS SUMMARY | 2025-02-01 13:37 | XMS_ITS | Encounter Summary ---
Author Organization [employer] Address [address] [place] [address] 7t [place] [address] Care Team Providers Care Patented Hogshead Assembler Name Role Phone Catherine Jon MD Primary Care Provider [phone] Reason for Visit * Reason Comments Med Refill Encounter Details Date Type Department Care Team (Late st Contact Info) Description 02/26/2023 Refill [facility] MEDICINE 230 [place], [place] [phone] Claribel Dalton MD 230 [place] [address] Type 2 diabetes mellitus with hyperglycemia, unspecified whether prison insulin use (CMS/FORMERLY [facility]) Social History Tobacco Use Types Packs/Day Years [...] 2 diabetes mellitus with hyperglycemia, unspecified whether truck terminal manager insulin use (CMS/[facility]ER[facility]) documented in this encounter Care Teams Patented Hogshead Assembler Relationship Specialty Start Date End Date Catherine Jon MD [address] [place] [address] PCP - General Family Medicine 09/21/24 [facility] Blaire Alcantara MD [facility] [address] [place] [address] [address] [place] [address] Medical Oncologist Hematology and Oncology 09/21/24 Jung Maxwell MD [facility] [address] [place] [address] [place] [address] Consulting Physician Urology 09/21/24 Bryant Ferro DO Consulting Physician Cardiology 09/21/24 [facility] [address] [place] [address] Consulting Physician Nephrology 09/21/24 Denilson Fay MD, PhD [facility] 180 [place] [address] Consulting Physician Ophthalmology 09/21/24 [employer], PARACHUTIST/COMBATANT DIVER QUALIFIED Agency 25 [place] [address] Personal Care Services 09/21/24 documented as of this encounter
--- OUTSIDE RECORDS SUMMARY | 2025-02-01 13:37 | XMS_ITS | Encounter Summary ---
Author Organization [employer] Address [address] [facility] 7t [place] [address] Care Team Providers Care Pharmacist Per Diem Name Role Phone Catherine Jon MD Primary Care Provider [phone] Encounter Details Date Type Department Care Team (Late st Contact Info) Description 09/24/2022 Orders Only [facility] MEDICINE 230 [place], [place] [phone] Lydia Haq RN Social History Tobacco Use [...] on filedocumented in this encounter Care Teams Pharmacist Per Diem Relationship Specialty Start Date End Date Catherine Jon MD 505 [facility] [place] [place] [address] PCP - General Family Medicine 09/21/24 [facility]24 Blaire Alcantara MD [facility] On[facility] [address] [place] [address] [address] [place] [address] Medical Oncologist Hematology and Oncology 09/21/24 Jung Maxwell MD [facility] [address] [place] [address] [place] [address] Consulting Physician Urology 09/21/24 Bryant Ferro DO Consulting Physician Cardiology 09/21/24 [facility] [address] [place] [address] Consulting Physician Nephrology 09/21/24 Denilson Fay MD, PhD [facility] 180 [place] [address] Consulting Physician Ophthalmology 09/21/24 [employer], SKEIN BANDER Agency 25 [place] [address] Personal Care Services 09/21/24 documented as of this encounter
--- OUTSIDE RECORDS SUMMARY | 2025-02-01 13:37 | XMS_ITS | Encounter Summary ---
Author Organization [employer] Address [address] [facility] 7t [place] [address] Care Team Providers Care Job Hand Name Role Phone Catherine Jon MD Primary Care Provider Encounter Details Date Type Department Care Team (Late st Contact Info) Description 01/06/2024 Orders Only [facility] MEDICINE 230 [place], [place] [phone] Provider, MD Karoline Social History Tobacco Use [...] on filedocumented in this encounter Care Teams Job Hand Relationship Specialty Start Date End Date Catherine Jon MD 505 [facility] [place] [address] PCP - General Family Medicine 09/21/24 [facility] 07/26/24 Blaire Alcantara MD [facility] Oncology Center [address] [facility] [address] [place] [address] Medical Oncologist Hematology and Oncology 09/21/24 Jung Maxwell MD [facility] Urology Center [address] [place] [address] [place] [address] Consulting Physician Urology 09/21/24 Bryant Ferro DO Consulting Physician Cardiology 09/21/24 [facility] [address] [place] [address] Consulting Physician Nephrology 09/21/24 Denilson Fay MD, PhD [facility] 180 [place] [address] Consulting Physician Ophthalmology 09/21/24 [employer], MEAT PROCESSING CENTER MANAGER Agency [address] [place] [address] Personal Care Services 09/21/24 documented as of this encounter
--- OUTSIDE RECORDS SUMMARY | 2025-02-01 13:37 | XMS_ITS | Encounter Summary ---
Author Organization [employer] Address [address] [facility] 7t [place] [address] Care Team Providers Care Manager Semiconductor Name Role Phone Catherine Jon MD Primary Care Provider [phone] Reason for Visit * Reason Onset Date Comments Change PCP 08/03/2024 Encounter Details Date Type Department Care Team ([facility] st Contact Info) Description 08/03/2024 Telephone [facility] MEDICINE 230 [place], [place] [phone] Anne Talamantes DO 230 [place], [place] [phone] Change PCP Social History Tobacco Use Types [...] from pt stating she has moved to [place] and is requesting to change locations due to convince. If any questions you can contact pt at [phone]. (Estonian Speaker) documented in this encounter Plan of Treatment Not on file documented as of this encounter Visit Diagnoses Not on filedocumented in this encounter Care Teams Manager Semiconductor Relationship Specialty Start Date End Date Catherine Jon MD [address] [place] [address] PCP - General Family Medicine 09/21/24 [facility] 07/26/24 Blaire Alcantara MD [facility] Oncology Center [address] [facility] [address] [place] [address] Medical Oncologist Hematology and Oncology 09/21/24 Jung Maxwell MD [facility] Urology Center [address] [place] [address] [place] [address] Consulting Physician Urology 09/21/24 Bryant Ferro DO Consulting Physician Cardiology 09/21/24 [facility] [address] [place] [address] Consulting Physician Nephrology 09/21/24 Denilson Fay MD, PhD [facility] 180 [place], [place] 038[address]89 Consulting Physician Ophthalmology 09/21/24 [employer], SR. STRATEGIC SOURCING MANAGER Agency 25 [place], [place] 7143589 Personal Care Services 09/21/24 documented as of this encounter
--- OUTSIDE RECORDS SUMMARY | 2025-02-01 13:37 | XMS_ITS | Encounter Summary ---
Author Organization [employer] Address 75 [facility] 7t [place] [address] Care Team Providers Care Tube Bending Machine Operator Name Role Phone Catherine Jon MD Primary Care Provider [phone] Reason for Visit * Reason Onset Date Comments Call Back Request 11/23/2024 Encounter Details Date Type Department Care Team ([facility] Contact Info) Description 11/23/2024 Telephone [facility] MEDICINE 230 [place] [address] Catherine Jon MD [address] [place], [place] [phone] Call Back Request Social History Tobacco Use [...] from pt requesting a call back from [employer]. Contact pt at [phone] documented in this encounter Plan of Treatment Not on file documented as of this encounter Visit Diagnoses Not on filedocumented in this encounter Care Teams Tube Bending Machine Operator Relationship Specialty Start Date End Date Catherine Jon MD 505 [place] [address] PCP - General Family Medicine 09/21/24 [facility] Blaire Alcantara MD [facility] On[facility] Center [address] [place] [address] [address] 1 [place] [address] Medical Oncologist Hematology and Oncology 09/21/24 Jung Maxwell MD [facility]rology Center [address] [place] [address] Consulting Physician Urology 09/21/24 Bryant Ferro DO Consulting Physician Cardiology 09/21/24 [facility] [address] [place] [address] Consulting Physician Nephrology 09/21/24 Denilson Fay MD, PhD [facility] 180 [place] [address] Consulting Physician Ophthalmology 09/21/24 [employer], EQUITY STRUCTURER Agency 25 [place] [address] Personal Care Services 09/21/24 documented as of this encounter
--- OUTSIDE RECORDS SUMMARY | 2025-02-01 13:37 | XMS_ITS | Encounter Summary ---
Author Organization [employer] Address 75 [facility] 7t [place] [address] Care Team Providers Care Nib Inspector Name Role Phone Catherine Jon MD Primary Care Provider [phone] Encounter Details Date Type Department Care Team (Late st Contact Info) Description 11/23/2022 Orders Only [facility] MEDICINE 230 [place], [place] [phone] Ana Cristina Haq LPN Social History Tobacco [...] on filedocumented in this encounter Care Teams Nib Inspector Relationship Specialty Start Date End Date Catherine Jon MD 505 [facility] [place] [address] PCP - General Family Medicine 09/21/24 [facility] Blaire Alcantara MD [facility] Oncology Center [address] [facility] [address] [place] [address] Medical Oncologist Hematology and Oncology 09/21/24 Jung Maxwell MD [facility] Urology Center [address] [place] [address] [place] [address] Consulting Physician Urology 09/21/24 Bryant Ferro DO Consulting Physician Cardiology 09/21/24 [facility] [address] [place] [address] Consulting Physician Nephrology 09/21/24 Denilson Fay MD, PhD [facility] 180 [place], [place] [phone] Consulting Physician Ophthalmology 09/21/24 [employer], TEAROOM HOST/HOSTESS Agency 25 [place] [address] Personal Care Services 09/21/24 documented as of this encounter
--- OUTSIDE RECORDS SUMMARY | 2025-02-01 13:37 | XMS_ITS | Encounter Summary ---
Author Organization [employer] Address 75 [facility] 7t [place] [address] Care Team Providers Care Sprigger Name Role Phone Catherine Jon MD Primary Care Provider [phone] Encounter Details Date Type Department Care Team ([facility] st Contact Info) Description 09/30/2022 Orders Only [facility] CHC MED & PEDS 505 [facility] [place] [address] Anne Gama LPN Social History Tobacco Use [...] on filedocumented in this encounter Care Teams Sprigger Relationship Specialty Start Date End Date Catherine Jon MD 505 [facility] [place] [address] PCP - General Family Medicine 09/21/24 [facility]24 Blaire Alcantara MD [facility] Oncology Center [address] [place] [address] [address] [place] [address] Medical Oncologist Hematology and Oncology 09/21/24 Jung Maxwell MD [facility]rology Center [address] [place] [address] [place] [address] Consulting Physician Urology 09/21/24 Bryant Ferro DO Consulting Physician Cardiology 09/21/24 [facility] [address] [place] [address] Consulting Physician Nephrology 09/21/24 Denilson Fay MD, PhD [facility] 180 [place] [address] Consulting Physician Ophthalmology 09/21/24 [employer], BINDER FIXER Agency 25 [place] [address] Personal Care Services 09/21/24 documented as of this encounter
--- OUTSIDE RECORDS SUMMARY | 2025-02-01 13:37 | XMS_ITS | Clinical Summary ---
Author Organization [facility] Address [address] [facility] [address] [place] [address] [place] [address] Phone Care Team Providers Care Visual Inspector Name Role Phone Anne Talamantes DO Primary [...] 9.2 8.7 - 10.7 mg/dL eGFR Non-Afr Australian 14 Total Bilirubin 0.4 MG/DL Bilirubin Direct 0.1 ALT (SGPT) 13 U/L AST (SGOT) 12 U/L Alkaline Phosphatase 102 U/L Vitamin D, 25-OH, Total 38 ng/mL Hemoglobin A1C 7.6(A) 4.0 - 6.0 Alb/Creat Ratio, Ur 3,229 mg/g Creat Triglycerides 202 Cholesterol, Total 130 HDL 35 mg/dL LDL-Calculated 68 08/10/2022 [facility] Provider LAB BLOOD ORDERABLES Jolanta l Result from Last 3 Months or Most Recently Relevant to Health Maintenance Insurance Medicaid [place] Care Teams Visual Inspector Relationship Specialty Start Date End Date Anne Talamantes DO 230 [place] [address] PCP - General 10/07/20
--- OUTSIDE RECORDS SUMMARY | 2025-02-01 13:37 | XMS_ITS | Encounter Summary ---
Author Organization [employer] Address 75 [facility] 7t [place] [address] Care Team Providers Care Insurance Sales Assistant Name Role Phone Catherine Jon MD Primary Care Provider [phone] Encounter Details Date Type Department Care Team ([facility] st Contact Info) Description 01/21/2023 Orders Only [facility] CHC MED & PEDS [address] [place] [address] Anne Gama LPN Social History Tobacco Use [...] on filedocumented in this encounter Care Teams Insurance Sales Assistant Relationship Specialty Start Date End Date Catherine Jon MD [address] [facility] [place] [address] PCP - General Family Medicine 09/21/24 [facility] Blaire Alcantara MD [facility] On[facility] Center [address] [place] [address] St [address] [place] [address] Medical Oncologist Hematology and Oncology 09/21/24 Jung Maxwell MD [facility] Center [address] [place] [address] [place] [address] Consulting Physician Urology 09/21/24 Bryant Ferro DO Consulting Physician Cardiology 09/21/24 [facility] [address] [place] [address] Consulting Physician Nephrology 09/21/24 Denilson Fay MD, PhD [facility] 180 [place] [address] Consulting Physician Ophthalmology 09/21/24 [employer], STRUCTURAL STEEL WORKER Agency 25 [place] [address] Personal Care Services 09/21/24 documented as of this encounter
--- OUTSIDE RECORDS SUMMARY | 2025-02-01 13:37 | XMS_ITS | Clinical Summary ---
Author Organization [employer] Address [address] [place] [address] 7t [place] [address] Care Team Providers Care Loss Prevention Research Engineer Name Role Phone Catherine Jon MD Primary Care Provider [phone] Allergies No known active allergies Medications Trulicity 1.5 MG/0.5ML solution pen-injectorInd ications:Type 2 diabetes mellitus with other specified complication, with long-term current use of insulin ([facility]) INJECT ONE PEN (=1.5MG) SUBCUTANEOUSLY ONCE A WEEK DIRECTED 2 mL 023 Active Pentips 32G X 4 MM misc USE DIRECTED WITH lantus AND humalog 100 each 024 Active Blood Glucose Monitoring Suppl (FreeStyle Beacon Lite) w/Device kit Use to test blood sugar 3 times daily 1 kit 024 Active TRUEplus Lancets 33G miscIndications :Diabetic nephropathy associated with type 2 diabetes mellitus ([facility]) TEST BLOOD SUGAR SIX TIMES DAILY 200 each 024 Active FREESTYLE LITE test stripIndication s:Type 2 diabetes mellitus with diabetic nephropathy, with long-term current use of insulin ([facility]) TEST BLOOD SUGAR SIX TIMES DAILY 150 strip 7 024 Active cinacalcet (Sensipar) 30 MG tablet Take 1 tablet by mouth 3 (three) times a week. 024 Active metoprolol tartrate (Lopressor) 50 MG tablet Take 1 tablet by mouth 2 times daily. 024 Active oxybutynin (Ditropan) 5 MG tablet TAKE 1 TABLET BY MOUTH EVERY 8 HOURS FOR BLADDER SPASMS Active sevelamer carbonate (Renvela) 800 MG tablet Take 800 mg by mouth with breakfast, with lunch, and with evening meal. Active calcitriol (Rocaltrol) 0.25 MCG capsule Take 0.25 mcg by mouth in the morning. Active aspirin (Aspirin Adult Low Strength) 81 MG EC tablet Take 1 tablet (81 mg) by mouth in the morning. 90 tablet 1 Active glucose-vitamin C 4-6 GM-MG oral gel Chew 1 tablet if needed for low blood sugar. 50 tablet Active insulin glargine (Lantus SoloStar) 100 UNIT/ML pen Inject 25 Units under the skin at bedtime. 15 mL 2 Active Continuous Glucose Sensor (FreeStyle Gary 2 Sensor) [facility] Apply 1 sensor every 14 days 2 each Active Continuous Glucose Workday Director (FreeStyle Gary 2 [place]) device Scan sensor every 8 hours 1 each Active hydrALAZINE (Apresoline) 10 MG tabletIndicatio ns:Essential hypertension Take 1 tablet (10 mg) by mouth 2 times daily. 60 tablet 025 2025 Active Alcohol Swabs (Alcohol Prep) 70 % padsIndications :Type 2 diabetes mellitus with other specified complication, unspecified whether superintendent container terminal insulin use ([facility]) Test blood glucose QID 100 each Active Ferrous Sulfate (iron) 325 (65 Fe) MG tablet TAKE 1 TABLET BY MOUTH EVERY EVENING 90 tablet 1 Active D3 Super Strength 50 MCG (2000 UT) capsule TAKE 1 CAPSULE BY MOUTH EVERY MORNING 90 capsule Active Senna S 8.6-50 MG tablet Take 1 tablet by mouth if needed at bedtime for constipation. 30 tablet 025 Active rosuvastatin (Crestor) 40 MG tablet Take 1 tablet (40 mg) by mouth at bedtime. 90 tablet 025 Active insulin lispro (HumaLOG) 100 UNIT/ML injectionIndica tions:Type 2 diabetes mellitus with hyperglycemia, unspecified whether correction insulin use ([facility]) INJECT 8-18 UNITS SUBCUTANEOUSLY THREE TIMES DAILY BEFORE MEALS DIRECTED 15 mL 2 Active amitriptyline (Elavil) 50 MG tabletIndicatio ns:Type 2 diabetes mellitus with diabetic neuropathy, unspecified whether correction insulin use ([facility]) TAKE 1 TABLET BY MOUTH AT BEDTIME 30 tablet 1 025 Active omeprazole (PriLOSEC) [address] capsule TAKE 1 CAPSULE BY MOUTH TWICE DAILY IN THE MORNING AND IN THE EVENING BEFORE MEALS 180 capsule 025 Active apixaban (Eliquis) 2.5 MG tablet TAKE 1 TABLET BY MOUTH TWICE DAILY IN THE MORNING AND IN THE EVENING 60 tablet 5 025 Active Eliquis 2.5 MG tablet TAKE 1 TABLET BY MOUTH TWICE DAILY IN THE MORNING AND IN THE EVENING 60 tablet 1 025 2024 Discontinued Active Problems Problem Noted Date Diagnosed Date Acute internal jugular vein thrombosis Overview (09/21/2024): Dx R sided IJV thrombosis, treated with eliquis, followed by hematology (Jul 2024) Assessment & Plan (09/21/2024 11:14 AM EST): Dx on Jul 2024, on eliquis, cont following with hematology AVF (arteriovenous fistula) 09/21/2024 superintendent container terminal (current) use of insulin 09/21/2024 Pacemaker 09/21/2024 [...] BS numbers. Advised to follow up with Outcomes Specialist to restart Farxiga. Ordering lab work for further evaluation. Advised to bring paperwork for Advanced Directives next visit. Follow up in 4 months. Encounters Date Type Department Care Team Description 02/01/2025 Orders Only [facility] External Provider, [facility] 01/28/2025 Refill [facility] [address] [place] [address] Amanda Rider MD 12/10/2024 Refill [facility] [address] [place] [address] Anne Talamantes DO 12/08/2024 Population Health Risk Score [facility] (C3) Department [address] [id number] Provider, Population Health Generic 12/07/2024 Refill [facility] [address] [place] [address] Jonnathan Navarrete MD Type 2 diabetes mellitus with diabetic neuropathy, unspecified whether correction insulin use ([facility]) 12/07/2024 Refill [facility] [address] [place] [address] Catherine Jon MD Type 2 diabetes mellitus with diabetic neuropathy, unspecified whether correction insulin use ([facility]) 11/26/2024 Refill [facility] [address] [place] [address] Anne Talamantes DO Type 2 diabetes mellitus with hyperglycemia, unspecified whether superintendent container terminal insulin use ([facility]) 11/23/2024 Telephone [facility] [address] [place] [address] Catherine Jon MD Call Back Request 11/10/2024 Refill [facility] [address] [place] [address] Catherine Jon MD 11/08/2024 Telephone [facility] [address] [place] [address] Catherine Jon MD No Show 11/08/2024 Refill [facility] [address] [place] [address] Catherine Jon MD 11/08/2024 Refill [facility] [address] [place] [phone] Anne Talamantes DO 11/07/2024 Telephone [facility] [address] [place] [phone] Catherine Jon MD Nurse Triage 11/06/2024 Patient Outreach [facility] [address] [place] [address] Catherine Jon MD Care Coordination (Outreach) 11/06/2024 Telephone [facility] [address] [place] [address] Chelly Quintana RN Care Coordination ([facility] program graduation) 11/06/2024 Travel 11/06/2024 Refill [facility] [address] [place] [phone] Anne Talamantes DO from Last 3 Months Immunizations Name Administration [...] the past 12 months, has t he [employer], gas, oil or water company threatened to [...] 10/24/2021, Additional history exists Diabetes: Hemoglobin A1C 03/22/202509/21/ 024, 03/27/2024, 08/10/2022, Additional history exists SDOH [...] Procedure Name Priority Date/Time Associated Diagnosis Comments XR CHEST 2 VIEWS Routine 02/01/2025 12:2 2 PM EDT POCT GLYCATED HEMOGLOBIN, TOTAL Routine 09/21/2024 11:15 AM EST Type 2 diabetes mellitus with diabetic nephropathy, with long-term current use of insulin ([facility]) LIPID PANEL, STANDARD Routine 03/03/2024 1:43 PM EDT Other fatigue BI MAMMOGRAM SCREENING TOMOSYNTHESIS BILATERAL Routine 02/25/2024 3:03 PM EDT HPV MRNA E6/E7 REFLEX TO HPV 16, 18/45 Routine 11/22/2020 12:00 AM EST HM COLONOSCOPY Routine 03/08/2019 11:49 AM EDT from Last 3 Months or Most Recently Relevant to Health Maintenance Results * XR Chest 2 Views (02/01/2025 12:22 PM EDT) Anatomical Region Laterality Modality Chest Radiographic Diana ging 02/01/2025 12:2 2 PM EDT Narrative 02/01/2025 12:42 PM EDT ? [facility] ?[address] ?[place] [address] ?XRay Report ? Signed ? Patient: Max,Jazmine ?MR#: [id number] ?? [id number] ? : 1965 ?Acct:[id number] ? Age/Sex: 59 / F ?ADM Date: 02/01/25 ? Loc: HO.XRAY ? Attending Dr: LUKAS Jhonson DNP-BC ? Ordering Physician: Emily Weaver DNP, FNP-BC ?? Date of Service: 02/01/25 ?? Procedure(s): XR chest 2V ?? Accession Number(s): [id number] ? cc: Emily Weaver DNP, FNP-BC; Catherine Jon MD ? EXAMINATION: ?? XR CHEST ? CLINICAL INFORMATION: ?? N18.6 - End stage renal disease ? COMPARISON: ?? August 07, 2024 ? TECHNIQUE: ?? 2 views of the chest were obtained. ? FINDINGS: ?? No consolidation, pleural fissure pneumothorax. ?? Cardiomediastinal silhouette size is mildly prominent. ?? 3. Intact electrode leads in the right heart chambers and coronary ?? sinus. Right-sided dual-lumen central venous line catheter ends in the ?? right atrium. ?? S-shaped curvature of the thoracolumbar spine and multilevel marginal ?? osteophyte formation and syndesmophyte formation. ?? Metallic reservoir of the pacemaker overlapping the peripheral left ?? hemithorax. ? XR/XR chest 2V ?? IMPRESSION: ?? No acute airspace disease or pulmonary edema. Stable lungs. ? Electronically signed by: ??Shelton Levine MD ??02/01/2025 12:40 PM ?? EDT RP ? Dictated By: ?Shelton Lam MD ? Signed By: ?<Electronically signed by Shelton Alexis MD in OV> ? 02/01/25 1240 ? DD/ 1222 ? TD/TT: 02/01/25 1235 ? Car Painter: ? Procedure Note Donotuseinterpreter, Image - 02/01/[address] [address] XRay Report Signed Patient: Jazmine MaxMR#: [id number] : 1965Acct:[id number] Age/Sex: 59 / FADM Date: 02/01/25 Loc: HO.XRAY Attending Dr: JEFF Johnson DNP Ordering Physician: Emily Weaver DNP, FNP-BC Date of Service: 02/01/25 Procedure(s): XR chest 2V Accession Number(s): [id number] cc: Emily Weaver DNP, FNP-BC; Catherine Jon MD EXAMINATION: XR CHEST CLINICAL INFORMATION: N18.6 - End stage renal disease COMPARISON: August 07, 2024 TECHNIQUE: 2 views of the chest were obtained. FINDINGS: No consolidation, pleural fissure pneumothorax. Cardiomediastinal silhouette size is mildly prominent. 3. Intact electrode leads in the right heart chambers and coronary sinus. Right-sided dual-lumen central venous line catheter ends in the right atrium. S-shaped curvature of the thoracolumbar spine and multilevel marginal osteophyte formation and syndesmophyte formation. Metallic reservoir of the pacemaker overlapping the peripheral left hemithorax. XR/XR chest 2V IMPRESSION: No acute airspace disease or pulmonary edema. Stable lungs. Electronically signed by: Shelton Levine MD 02/01/2025 12:40 PM EDT RP Dictated By: Shelton Lam MD Signed By: <Electronically signed by Shelton Alexis MDin OV> 02/01/25 1240 DD/ 1222 TD/TT: 02/01/25 1235 Car Painter: [facility] External Provider IMG XR PROCEDURES Edited Result - Final * (ABNORMAL) POCT HGB A1C (09/21/2024 11:15 AM EST) Hemoglobin A1C 6.9(A) 4.0 - 6.0 % QC Media Lot # [id number] Lot# Expiration Date [id number] Blood 09/21/2024 11:1 5 AM EST us Catherine Jon MD POINT OF CARE TEST ENTER/EDIT ORDERABLES Final Result * (ABNORMAL) Lipid Panel, Standard (03/03/2024 1:43 PM EDT) Triglycerides 201(H) <150 mg/dL [facility] Comment:Desirable Triglyceri de: less than 150 mg/dLBorderline High Triglyceride 150-199 mg/dLHigh Triglyceride: 200-499 mg/dLVery High Triglyceride: greater than or equal to 5OO mg/dL Cholesterol 146 <200 mg/dL [facility] Comment:Desirable Cholestero l: less than 200 mg/dLBorderline High Cholesterol: 200-239 mg/dLHigh Cholesterol: greater than 239 mg/dL LDL Cholesterol Calculated 69 <100 mg/dL [facility] Comment:Desirable LDL: less than 100 mg/dLNear Optimal/Above Optimal LDL: 110- 129 mg/dLBorderline High LDL: 130-159 mg/dLHigh LDL: 160-189 mg/dLVery High LDL: greater than or equal to 190 mg/dL HDL Cholesterol 37(L) >40 mg/dL [facility] Comment:Desirable HDL: great er than 40 mg/dL Note: This HDL assay may give artificially low results in patients with liver disease. Blood Venous blood specimen / Unknown 03/03/2024 1:43 PM EDT 03/03/2024 3:58 PM EDT us Aby Vazquez MD LAB BLOOD ORDERABLES Final Resul t [facility] [address] [place] [phone] * BI Mammogram Screening Tomosynthesis Bilateral (02/25/2024 3:03 PM EDT) Anatomical Region Laterality Modality Breast Bilateral Mammography 02/25/2024 3:03 PM EDT Narrative 03/21/2024 4:41 PM EDT ? [facility] ? [address] ?[place] [address] ? Mammography Report ? Signed ? Patient: Max,Jazmine ?MR#: [id number] ?? [id number] ? : 1965 ?Acct:[id number] ? Age/Sex: 58 / F ?ADM Date: 02/25/24 ? Loc: HO.MAMMO ? Attending Dr: Anne Talamantes DO ? Ordering Physician: Anne Talamantes DO ?Results: 1N ?? egative ? Date of Service: 02/25/24 ?Follow Up: 1 Year From Orig ?? inal Mammogram ? Procedure(s): MM tomosynthesis screening BI ?? Accession Number(s): [id number] ? cc: Anne Talamantes DO ? EXAMINATION: [...] by Iliana Dumont MD in OV> ? 03/21/24 1637 ? DD/ 1503 ? TD/TT: ? Car Painter: ? Procedure Note Adriana, Image - 03/21/2024 [facility] [address] [place] [address] Mammography Report Signed Patient: Magno Max#: [id number] : 1965Acct:[id number] Age/Sex: 58 / FADM Date: 02/25/24 Loc: BRITTNEEO Attending Dr: Anne Talamantes DO Ordering Physician: Anne Talamantesults: 1N egative Date of Service: 02/25/24Follow Up: 1 Year From Orig inal Mammogram Procedure(s): MM tomosynthesis screening BI Accession Number(s): [id number] cc: Anne Talamantes DO EXAMINATION: MM SCREENING [...] in OV> 03/21/24 1637 DD/ 1503 TD/TT: Car Painter: Anne Talamantes DO IMG BI PROCEDURES Final Resu lt * HPV mRNA E6/E7 REFLEX TO HPV 16, 18/45 (11/22/2020 12:00 AM EST) HPV nRNA E6/E7 Not Detected Not Detected [facility] [employer] [facility] Comment: Methodology: Veneer Drier Tailer-Mediated Amplification This assay detects E6/E7 viral messenger RNA (mRNA) from 14 high-risk HPV types (16,18,31,33,35,39,45,51,52,56,58,59,66,68). ? The analytical performance characteristics of this assay have been determined by [employer]. The modifications have not been cleared or approved by the FDA. This assay has been validated pursuant to the CLIA regulations and is used for clinical purposes. ?? For additional information, please refer to http://education.[employer]/UCA897m2 (This link if provided for information/ educational purposes only.) 11/22/2020 Anne Talamantes DO LAB CYTOLOGY ORDERABLES Jolanta l Result [facility] [address] [place] [phone], * Hm Colonoscopy (03/08/2019 11:49 AM EDT) us Historical Provider HEALTH MAINTENANCE Final Result from Last 3 Months or Most Recently Relevant to Health Maintenance Insurance * Guarantor: Jazmine Max Account Type Relation to Patient Date of Phone Billing Address Personal/[place] [address] Care Teams Loss Prevention Research Engineer Relationship Specialty Start Date End Date Catherine Jon MD [address] [place] [address] [place] [address] PCP - General Family Medicine 09[facility] Blaire Alcantara MD [facility] [address] [place] [address] Medical Oncologist Hematology and Oncology 09/21/24 Jung Maxwell MD [facility] [address] [place] [address] Dr [address] [place] [address] Consulting Physician Urology 09/21/24 Bryant Ferro DO Consulting Physician Cardiology 09/21/24 [facility] [address] [place] [address] Consulting Physician Nephrology 09/21/24 Denilson Fay MD, PhD [facility] [address] [phone] Consulting Physician Ophthalmology 09/21/24 [employer], STARBUCKS CLERK Agency [address] [place] [address] Personal Care Services 09/21/24
--- OUTSIDE RECORDS SUMMARY | 2025-02-01 13:37 | XMS_ITS | Encounter Summary ---
Author Organization [employer] Address [address] [facility] 7t [place] [address] Care Team Providers Care Manufacturing Leader Name Role Phone Catherine Jon MD Primary Care Provider [phone] Reason for Visit * Reason Onset Date Comments Nurse Triage 11/07/2024 Encounter Details Date Type Department Care Team ([facility] st Contact Info) Description 11/07/2024 Telephone [facility] [address] [place] [address] Catherine Jon MD [address] [place], [place] [phone] Nurse Triage Social History Tobacco Use Types [...] Miscellaneous Notes * Telephone Encounter - Otf Alegrearez - 11/07/2024 3:57 PM EST TC from pt reports having a scab on the back on her head that now hurts and is very itchy Duration 1x week Yoruba speaking documented in this encounter Plan of Treatment Not on file documented as of this encounter Visit Diagnoses Not on filedocumented in this encounter Care Teams Manufacturing Leader Relationship Specialty Start Date End Date Catherine Jon MD [address] [place] [phone] PCP - General Family Medicine 09/21/24 [facility] 07/26/24 Blaire Alcantara MD [facility] [address] [place] [address] [address] [place] [address] Medical Oncologist Hematology and Oncology 09/21/24 Jung Maxwell MD [facility] [address] [place] [address] [address] Consulting Physician Urology 09/21/24 Bryant Ferro DO Consulting Physician Cardiology 09/21/24 [facility] [address] [place] [address] Consulting Physician Nephrology 09/21/24 Denilson Fay MD, PhD [facility] [address] [place] [address] Consulting Physician Ophthalmology 09/21/24 [employer], SHUTTLE REPAIRER Agency [address] [place] [phone] Personal Care Services 09/21/24 documented as of this encounter
--- OUTSIDE RECORDS SUMMARY | 2025-02-01 13:37 | XMS_ITS | Encounter Summary ---
Author Organization [employer] Address [address] [facility] 7t [place] [address] Care Team Providers Care Animal Breeder Name Role Phone Catherine Jon MD Primary Care Provider [phone] Reason for Visit * Reason Comments Med Refill Encounter Details Date Type Department Care Team ([facility] st Contact Info) Description 09/18/2024 Refill [facility] MEDICINE [address] [place], [place] [phone] Anne Talamantes DO [address] [place], [place] [phone] Social History Tobacco Use Types Packs/Day Years [...] on filedocumented in this encounter Care Teams Animal Breeder Relationship Specialty Start Date End Date Catherine Jon MD [address] [place] [address] PCP - General Family Medicine 09/21/24 [facility] 07/26/24 Blaire Alcantara MD [facility] [address] [facility] [address] [place] [address] Medical Oncologist Hematology and Oncology 09/21/24 Jung Maxwell MD [facility] [address] [place] [address] Consulting Physician Urology 09/21/24 Bryant Ferro DO Consulting Physician Cardiology 09/21/24 [facility] [address] [place] [address] Consulting Physician Nephrology 09/21/24 Denilson Fay MD, PhD [facility] [address] [place] [address] Consulting Physician Ophthalmology 09/21/24 [employer], SLITTER CUT OFF OPERATOR Agency [address] [place] [address] Personal Care Services 09/21/24 documented as of this encounter
--- OUTSIDE RECORDS SUMMARY | 2025-02-01 13:37 | XMS_ITS | Patient Health Record ---
Author Organization Estuardo Kenyon III, MD Address [address] [place] [address] Care Team Providers Care Claims Adjustor Name Role Phone YENI SALGUERO Primary Care Provider Estuardo Kenyon [phone] Allergies Allergen (clinical drug ingredient) Drug/Non Drug Allergy documented on EMR Reaction Allergy Type Onset Date Status No Known Drug Allergy Unknown Drug Allergy Active Reason For Referral Reason Consult and Treat Diagnosis 1 End-stage renal dise ase (N18.6) Diagnosis 2 Chronic kidney disea se, stage 5 (N18.5) Referral Organization [facility] nter Referring Provider First Name YENI Referring Provider Last Name NOEMY Referring Provider Speciality Family Med icine Referred Organization Estuardo Kenyon III, MD Referred Provider Estuardo Kenyon Referred Address [address],[place], [place],[address], Referred Provider Specialty Oncology Referral Priority Routine Reason urothelial cancer ev aluate and treat Diagnosis 1 Malignant neoplasm o f urinary bladder, unspecified site (C67.9) Referral Organization Estuardo Kenyon III, MD Referring Provider First Name Estuardo Referring Provider Last Name Chantale Referring Provider Speciality Internal M edicine Referred Provider HI ZHOU Referred Provider Specialty Oncology General Notes Mary,Esther INSPECTOR TYPE 02/26 02:14:17 PM EDT > pt dtr Olga called given appt information and ref/progress notes and all testing faxed to Dr Zhou at [phone] Referral Priority Routine Referral Appointment Date 03/17/2024 [...] Problem Status W/U Status Risk Notes Problem 975455246 Anemia in chronic kidney disease (D63.1) Active confirmed Her blood pressure is currently 139/69 and no change in her regimen as needed. Problem 862358436 Type 2 diabetes mellitus with diabetic chronic kidney disease (E11.22) Active confirmed Problem 572558200 Chronic kidney disease, stage 5 (N18.5) Active confirmed Problem 20006347 Secondary hyperparathyroid ism of renal origin (N25.81) Active confirmed She is in end-stage renal disease. Problem 380424538 jail (current) use of insulin (Z79.4) Active confirmed Problem 882895431 Pacemaker (Z95.0) Active confirmed Problem 199206623 History of adenomatous polyp of colon (Z86.010) Active confirmed Problem 14991732 Hypertension, unspecified type (I10) Active confirmed Problem 71902306 Chronic renal failure, stage 4 (severe) (N18.4) Active confirmed We have mad e the regional geodetic advisor aware of the situation. The fistula in the left upper lung appears to be maturing well. The dialysis catheter and right upper chest wall is intact and seems to function normally. Problem 332726888 Malignant neoplasm of urinary bladder, unspecified site (C67.9) Active confirmed The tumor appears to be widespread. We will need to review the images with the radiologist to clarify the nature of the mass in or I can tellnear the right kidney. Problem 35506367 Cardiomyopathy, unspecified type (I42.9) Active confirmed Problem 883308124444891414 Progressive macular hypomelanosis (L81.6) Active confirmed Problem 127304730 AVF (arteriovenous fistula) (I77.0) Active confirmed Problem 28860919 End-stage renal disease (N18.6) Active confirmed Problem 20361481 Type 2 diabetes mellitus with diabetic nephropathy, unspecified whether custodial insulin use (E11.21) Active confirmed Diabetes currently seems well controlled. Vital Signs Heart Rate 91 /min 03/16/2024 Temperature 98.1 degrees Fahrenheit 03/16/2024 Blood pressure diastolic 69 mm Hg 03/16/2024 Height 5' 1 in 03/16/2024 Blood pressure systolic 139 mm Hg 03/16/2024 Weight 160 lbs 03/16/2024 BMI 30.23 kg/m2 03/16/2024 Encounters Encounter Location Date Provider Diagnosis Estuardo Kenyon III, MD [address] [place] [address] [place] [address] 03/16/2024 Estuardo Kenyon Chronic renal failur e, stage 4 (severe) N18.4 ; Malignant neoplasm of urinary bladder, unspecified site C67.9 ; Type 2 diabetes mellitus with diabetic nephropathy, unspecified whether predatory animal exterminator insulin use E11.21 ; Secondary hyperparathyroidism of [...] (ICD-10 - N18.4) We have made the regional geodetic advisor aware of the situation. The fistula in [...] apoorva itus with diabetic nephropathy, unspecified whether predatory animal exterminator insulin use (ICD-10 - E11.21) Diabetes currently [...] Coverage Start Date Coverage End Date [place] [facility] [address] KASSANDRA GONZALEZ [id number] Jazmine Max Self - patient is the insured
--- OUTSIDE RECORDS SUMMARY | 2025-02-01 13:37 | XMS_ITS | Encounter Summary ---
Author Organization [employer] Address [address] [place] [address] Care Team Providers Care Data Entry Supervisor Name Role Phone Catherine Jon MD Primary Care Provider [phone] Encounter Details Date Type Department Care Team (Late st Contact Info) Description 02/01/2025 Orders Only [facility] External Provider, [facility] Social History Tobacco Use Types Packs/Day Years [...] VIEWS Routine 02/01/2025 12:2 2 PM EDT documented in this encounter Results * XR Chest 2 Views (02/01/2025 12:22 PM EDT) Anatomical Region Laterality Modality Chest Radiographic Diana ging 02/01/2025 12:2 2 PM EDT Narrative 02/01/2025 12:42 PM EDT ? [facility] ?[address] ?[place] [address] ?XRay Report ? Signed ? Patient: Max,Jazmine ?MR#: [id number] ?? [id number] ? : 1965 ?Acct:[id number] ? Age/Sex: 59 / F ?ADM Date: 02/01/25 ? Loc: HO.XRAY ? Attending Dr: Emily Weaver DNP, MILITARY SCIENCE INSTRUCTOR-BC ? Ordering Physician: Emily Weaver DNP MILITARY SCIENCE INSTRUCTOR-BC ?? Date of Service: 02/01/25 ?? Procedure(s): XR chest 2V ?? Accession Number(s): [id number] ? cc: Emily Weaver DNP, MILITARY SCIENCE INSTRUCTOR-BC; Catherine Jon MD ? EXAMINATION: ?? XR [...] DD/ 1222 ? TD/TT: 02/01/25 1235 ? Erp Analyst: ? Procedure Note Donotfordinterpreter, Image - 02/01/[address] [address] XRay Report Signed Patient: Jazmine MaxMR#: [id number] : 1965Acct:[id number] Age/Sex: 59 / FADM Date: 02/01/25 Loc: [facility] Attending Dr: JEFF Johnson DNP Ordering Physician: Emily Weaver DNP, FNP-BC Date of Service: 02/01/25 Procedure(s): XR chest 2V Accession Number(s): [id number] cc: Emily Weaver DNP, FNP-BC; Catherine Jon [...] Shelton Levine MD 02/01/2025 12:40 PM EDT Dictated By: Shelton Lam MD Signed By: <Electronically signed by Shelton Alexis MDin OV> 02/01/25 1240 DD/ 1222 TD/TT: 02/01/25 1235 Erp Analyst: [facility] External Provider IMG XR PROCEDURES Edited Result - Final documented in this encounter Visit Diagnoses Not on filedocumented in this encounter Care Teams Data Entry Supervisor Relationship Specialty Start Date End Date Catherine Jon MD [address] [place] [address] PCP - General Family Medicine 09[facility]21[facility]24 [facility] Blaire Alcantara MD [facility] [address] [facility] [address] [place] [address] Medical Oncologist Hematology and Oncology 09/21/24 Jung Maxwell MD [facility] [address] [place] [address] [address] Consulting Physician Urology 09/21/24 Bryant Ferro DO Consulting Physician Cardiology 09/21/24 [facility] [address] [place] [address] Consulting Physician Nephrology 09/21/24 Denilson Fay MD, PhD [facility] [address] [place] [address] Consulting Physician Ophthalmology 09/21/24 [employer], SUPERVISOR P[employer]LTRY [employer]ESS[employer] Agency [address] [place] [address] Personal Care Services 09/21/24 documented as of this encounter
--- OUTSIDE RECORDS SUMMARY | 2025-02-01 13:38 | XMS_ITS | Encounter Summary ---
Author Organization [employer] Address [address] [facility] 7t [place] [address] Care Team Providers Care After School Program Teacher Name Role Phone Catherine Jon MD Primary Care Provider [phone] Reason for Visit * Reason Onset Date Comments Hospital Follow-up 04/11/2024 Encounter Details Date Type Department Care Team ([facility] st Contact Info) Description 04/11/2024 Telephone [facility] MEDICINE [address] [place], [place] [phone] Anne Talamantes DO [address] [place], [place] [phone] Hospital Follow-up Social History Tobacco Use Types [...] from pt requesting a HDF appt. Hospital: [facility] Date of admission: 04/07 Discharge date: 04/11 Diagnosed: Kidney Failure documented in this encounter Plan of Treatment Not on file documented as of this encounter Visit Diagnoses Not on filedocumented in this encounter Care Teams After School Program Teacher Relationship Specialty Start Date End Date Catherine Jon MD [address] [place] [address] PCP - General Family Medicine 09/21/24 [facility] 07/26/24 Blaire Alcantara MD [facility] [address] [place] [address] Medical Oncologist Hematology and Oncology 09/21/24 Jung Maxwell MD [facility] [address] [place] [address] [place] [address] Consulting Physician Urology 09/21/24 Bryant Ferro DO Consulting Physician Cardiology 09/21/24 [facility] [address] [place] [address] Consulting Physician Nephrology 09/21/24 Denilson Fay MD, PhD [facility] [address] [place], [place] [phone] Consulting Physician Ophthalmology 09/21/24 [employer], SHOWROOM SALES CONSULTANT Agency [address] [place] [address] Personal Care Services 09/21/24 documented as of this encounter
== END 2025-02-01 12:18 | disposition home or self-care (01) ==
LOC: HO.XRAY 12:17
PROVIDERS: PCP Family Medicine; Visit Provider Nurse Practitioner Family
DX: N18.6 End stage renal disease (principal); R05.9 Cough, unspecified
CPT/HCPCS: 71046

== ENCOUNTER → 2025-02-01 12:22 | Outpatient (BNV) | payer MEDICAID, SELFPAY | PROVIDERS: PCP Family Medicine; Visit Provider Radiology Diagnostic Radiology | DX: N18.6 End stage renal disease (principal) | CPT/HCPCS: 71046 ==

== ENCOUNTER 2025-02-07 11:21 | Outpatient (AMB) | payer MEDICAID, SELFPAY ==
--- NOTE | 2025-02-07 11:23 | MHC.OFFVIS ---
Vital Signs 02/07/25 11:24 Height 5 ft 1 in Weight 146 lb BMI 27.6 BP 142/84 H Blood Pressure Location Rt brachial Position Sitting Pulse 80 Pulse Source Pulse Oximeter Pulse Oximetry (%) 96 Oxygen Delivery Method Room Air Intake Visit Reasons: T2DM Intake Note: Patient presents today for a follow-up on Type 2 Diabetes Mellitus: Last Diabetic eye exam was on: Over 2 years ago Last Podiatry exam was on: Patient does not see a Stitching Machine Operator Most recent HbA1c: 6.5% Random Glucose- 170 mg/dL Molding And Trim Installer Required: Yes Molding And Trim Installer Language: Professor Of Biblical Studies Services: Molding And Trim Installer Present Molding And Trim Installer Name: Boy [id number] Information Interpreted: non-clinical & clinical Accompanied by: Self / Same As Patient Allergies No Known Allergies [No Known Allergies*] Allergy (Verified 02/07/25 11:30) HPI Comments Details: 59 year old presenting for diabetic consultation PCP: Catherine oJn MD, [facility] Medical History: renal failure, ypertension, chronic low back pain, IJ thrombosis Medications: Lantus 30 units, Lispro 8-18 unit TID cc Previously: Farxiga (stopped last Cr 7.96 on 07/2024). POC A1C today is 6.5% Meter reviewed. 2.4/day range 69-442 with average 188 ROS CONSTITUTIONAL: Denies weight loss, fever and chills. HEENT: Denies changes in vision and hearing. RESPIRATORY: Denies SOB and cough. CV: Denies palpitations and CP GI: Denies abdominal pain, nausea, vomiting and diarrhea. : Denies dysuria and urinary frequency. MSK: Denies new myalgia and joint pain. SKIN: Denies rash and pruritus. NEUROLOGICAL: Denies headache PSYCHIATRIC: Denies recent changes in mood. PHYSICAL EXAM: GENERAL: Alert and oriented x 3. NAD EYES: EOMI. Anicteric. HENT: Moist mucous membranes. No scleral icterus. No cervical lymphadenopathy. LUNGS: Clear to auscultation bilaterally. CARDIOVASCULAR: Regular rate and rhythm. No murmur. No JVD. ABDOMEN: Soft, non-tender +bs EXTREMITIES: No edema. Non-tender. SKIN: No rashes or lesions. Warm. NEUROLOGIC: No focal neurological deficits. CN II-XII grossly intact PSYCHIATRIC: Cooperative. Appropriate mood and affect [facility] Medical History ESRD (end stage renal disease) on dialysis Mass of bladder Bladder mass Pacemaker History of adenomatous polyp of colon Cardiomyopathy Chronic kidney disease, stage 4 (severe) Hypertension Type 2 diabetes mellitus with diabetic nephropathy Surgical History History of insertion of tunneled central venous catheter (CVC) with port History of bladder surgery History of ankle surgery History of biopsy Family History Father No problems noted. Mother No problems noted. Social History Household Members: Children Housing: House Are you a primary aged or disabled care worker to a significant other at home: No Do you presently have visiting nurse or other home services: No Alcohol intake: never Patient Tobacco Use Status: Never used Tobacco service: No Current occupational status: disabled Gender identity: Female Physical Exam Vital Signs: Last Vital Signs Pulse 80 02/07/25 11:24 BP 142/84 H 02/07/25 11:24 Pulse Ox 96 02/07/25 11:24 Oxygen Delivery Method Room Air 02/07/25 11:24 BMI result Body Mass Index 27.6 Results AMB Hemoglobin A1c AMB Hemoglobin A1c 6.5 % Last Edit by ESPERANZA Schultz on 02/07/25 11:44 Results Reviewed Results Reviewed: Laboratory Last Values Glucose (Clinic) 170 mg/dL (60-115) H 02/07/25 11:32 Assessment & Plan Assessment & Plan (1) Diabetes mellitus with insulin therapy: Code(s): E11.9 - Type 2 diabetes mellitus without complications; Z79.4 - [facility] (current) use of insulin Category: Medical Plan Controlled on current medications Does have a lot of hyperglycemia nonetheless a few lows around 6pm prior to dinner. Increase lantus to 32 units daily Patient is out of hydralazine which is sent Return in 3 months or sooner as needed Orders: Orders AMB Hemoglobin A1c Today E11.9 - Type 2 diabetes mellitus without complications, Z13.9 - Encounter for screening, unspecified, Z79.4 - [facility] (current) use of insulin Medications: New hydralazine 10 mg PO BID PRN 180 tabs 1RF Hypertension benzonatate 100 mg PO BID 28 caps 0RF Changed From insulin glargine (Lantus Solostar U-100 Insulin) 30 units subcut BEDTIME To insulin glargine (Lantus Solostar U-100 Insulin) 32 units (0.32 mL) subcut BEDTIME 90 days 30 mL 3RF Coding Level of Care Code Est Pt Level 4 (19253) Diagnoses Diabetes mellitus with insulin therapy E11.9; Z79.4
[2025-02-07 11:24] VITALS: BP 142/84; PULSE 80; O2SAT 96; BMI 27.6
[2025-02-07 11:38] LABS: Glucose, Whole Blood 170 mg/dL (60-115)
--- OUTSIDE RECORDS SUMMARY | 2025-02-07 12:21 | XMS_ITS | Encounter Summary ---
Author Organization [employer] Address [address] [facility] [address] [place] [address] Care Team Providers Care Stove Tender Name Role Phone Catherine Jon MD Primary Care Provider [phone] Reason for Visit * Reason Comments Med Refill Encounter Details Date Type Department Care Team ([facility] st Contact Info) Description 09/18/2024 Refill [facility] MEDICINE [address] [place], [place] [phone] Anne Talamantes DO [address] [place], [place] [phone] Social History Tobacco Use Types Packs/Day Years [...] on filedocumented in this encounter Care Teams Stove Tender Relationship Specialty Start Date End Date Catherine Jon MD [address] [place] [address] PCP - General Family Medicine 09/21/24 [facility] 07/26/24 Blaire Alcanatra MD [facility] [address] [facility] [address] [place] [address] Medical Oncologist Hematology and Oncology 09/21/24 Jung Maxwell MD [facility] [address] [place] [address] Consulting Physician Urology 09/21/24 Bryant Ferro DO Consulting Physician Cardiology 09/21/24 [facility] [address] [place] [address] Consulting Physician Nephrology 09/21/24 Denilson Fay MD, PhD [facility] [address] [place] [address] Consulting Physician Ophthalmology 09/21/24 [employer], [employer] Agency [address] [place] [address] Personal Care Services 09/21/24 documented as of this encounter
--- OUTSIDE RECORDS SUMMARY | 2025-02-07 12:21 | XMS_ITS | Clinical Summary ---
Author Organization [employer] Address [address] [place] [address] 7t [place] [address] Care Team Providers Care Electron Tube Assembler Name Role Phone Catherine Jon MD Primary Care Provider [phone] Allergies No known active allergies Medications Trulicity 1.5 MG/0.5ML solution pen-injectorInd ications:Type 2 diabetes mellitus with other specified complication, with long-term current use of insulin ([facility]) INJECT ONE PEN (=1.5MG) SUBCUTANEOUSLY ONCE A WEEK DIRECTED 2 mL 023 Active Pentips 32G X 4 MM misc USE DIRECTED WITH lantus AND humalog 100 each 024 Active Blood Glucose Monitoring Suppl (FreeStyle Narka Lite) w/Device kit Use to test blood sugar 3 times daily 1 kit 024 Active TRUEplus Lancets 33G miscIndications :Diabetic nephropathy associated with type 2 diabetes mellitus ([facility]) TEST BLOOD SUGAR SIX TIMES DAILY 200 each 11 024 Active FREESTYLE LITE test stripIndication s:Type 2 diabetes mellitus with diabetic nephropathy, with long-term current use of insulin ([facility]) TEST BLOOD SUGAR SIX TIMES DAILY 150 [...] Continuous Glucose Sensor (FreeStyle Gary 2 Sensor) [facility] Apply 1 sensor every 14 days 2 each Active Continuous Glucose Title Checker (FreeStyle Gary 2 [place]) device Scan sensor every 8 hours 1 each Active hydrALAZINE (Apresoline) 10 MG tabletIndicatio ns:Essential hypertension Take 1 tablet (10 mg) by mouth 2 times daily. 60 tablet 025 2025 Active Alcohol Swabs (Alcohol Prep) 70 % padsIndications :Type 2 diabetes mellitus with other specified complication, unspecified whether fpc insulin use ([facility]) Test blood glucose QID 100 each Active Ferrous Sulfate (iron) 325 (65 Fe) MG tablet TAKE 1 TABLET BY MOUTH EVERY EVENING 90 tablet Active D3 Super Strength 50 MCG (2000 [...] 2 diabetes mellitus with hyperglycemia, unspecified whether fpc insulin use ([facility]) INJECT 8-18 UNITS SUBCUTANEOUSLY THREE TIMES DAILY BEFORE MEALS DIRECTED 15 mL 2 Active omeprazole (PriLOSEC) [address] capsule TAKE 1 CAPSULE BY MOUTH TWICE DAILY IN THE MORNING AND IN THE EVENING BEFORE MEALS 180 capsule 025 Active apixaban (Eliquis) 2.5 MG tablet TAKE 1 TABLET BY MOUTH TWICE DAILY IN THE MORNING AND IN THE EVENING 60 tablet 5 025 Active amitriptyline (Elavil) 50 MG tabletIndicatio ns:Type 2 diabetes mellitus with diabetic neuropathy, unspecified whether machine long goods helper insulin use (CMS/HCC) TAKE 1 TABLET BY MOUTH AT BEDTIME 30 tablet 1 025 Active Eliquis 2.5 MG tablet TAKE 1 TABLET BY MOUTH TWICE DAILY IN THE MORNING AND IN THE EVENING 60 tablet 1 025 2024 Discontinued amitriptyline (Elavil) 50 MG tabletIndicatio ns:Type 2 diabetes mellitus with diabetic neuropathy, unspecified whether fpc insulin use (CMS/HCC) TAKE 1 TABLET BY MOUTH AT BEDTIME 30 tablet 1 025 2024 Discontinued Active Problems Problem Noted Date Diagnosed Date Acute internal jugular vein thrombosis Overview (09/21/2024): Dx R sided IJV thrombosis, treated with eliquis, followed by hematology (Jul 2024) Assessment & Plan (09/21/2024 11:14 AM EST): Dx on Jul 2024, on eliquis, cont following with hematology AVF (arteriovenous fistula) 09/21/2024 skilled nursing (current) use of insulin 09/21/2024 Pacemaker 09/21/2024 [...] BS numbers. Advised to follow up with Dimension Quarry Supervisor to restart Farxiga. Ordering lab work for further evaluation. Advised to bring paperwork for Advanced Directives next visit. Follow up in 4 months. Encounters Date Type Department Care Team Description 02/07/2025 Orders Only GENERIC EXTERNAL DATA DEPARTMENT Provider, Generic External Data 02/02/2025 Refill [facility] MEDICINE [address] [place] [address] Amanda Rider MD Type 2 diabetes mellitus with diabetic neuropathy, unspecified whether fpc insulin use ([facility]) 02/01/2025 Orders Only [facility] External Provider, [facility] 01/28/2025 Refill [facility]INE [address] [place] [address] Amanda Rider MD 12/10/2024 Refill [facility] [address] [place] [address] Anne Talamantes DO 12/08/2024 Population Health Risk Score [facility] (C[facility]) Department [address] [address] Provider, Population Health Generic 12/07/2024 Refill [facility] MEDICINE [address] [place] [address] Jonnathan Navarrete MD Type 2 diabetes mellitus with diabetic neuropathy, unspecified whether fpc insulin use ([facility]) 12/07/2024 Refill [facility] MEDICINE [address] [place] [address] Catherine Jon MD Type 2 diabetes mellitus with diabetic neuropathy, unspecified whether machine long goods helper insulin use ([facility]) 11/26/2024 Refill [facility] PEDS [address] [place] [address] Anne Talamantes DO Type 2 diabetes mellitus with hyperglycemia, unspecified whether fpc insulin use ([facility]) 11/23/2024 Telephone [facility] MEDICINE [address] [place] [address] Catherine Jon MD Call Back Request 11/10/2024 Refill [facility] MEDICINE [address] [place] [address] Catherine Jon MD from Last 3 Months Immunizations Immunization Administration Dates Next Due Hep B, adult [...] Procedure Name Priority Date/Time Associated Diagnosis Comments GLUCOSE, WHOLE BLOOD Routine 02/07/2025 11:32 AM EDT XR CHEST 2 VIEWS Routine 02/01/2025 12:2 2 PM EDT POCT GLYCATED HEMOGLOBIN, TOTAL Routine 09/21/2024 11:15 AM EST Type 2 diabetes mellitus with diabetic nephropathy, with long-term current use of insulin ([facility]) LIPID PANEL, STANDARD Routine 03/03/2024 1:43 PM EDT Other fatigue BI MAMMOGRAM SCREENING TOMOSYNTHESIS BILATERAL Routine 02/25/2024 3:03 PM EDT HPV MRNA E6/E7 REFLEX TO HPV 16, 18/45 Routine 11/22/2020 12:00 AM EST HM COLONOSCOPY Routine 03/08/2019 11:49 AM EDT from Last 3 Months or Most Recently Relevant to Health Maintenance Results * (ABNORMAL) Glucose, Whole Blood (02/07/2025 11:32 AM EDT) Glucose, Whole Blood 170(H) 60 - 115 mg/dL [facility] Comment:METER #: [id number] Testing performed in the Endocrinology Department [address] , [address], [facility]. 02/07/2025 11:3 2 AM EDT 02/07/2025 11:37 AM EDT us Generic External Data Provider LAB BLOOD ORDERAB LES Final Result [facility] [address] [place] [address] [phone] * XR Chest 2 Views (02/01/2025 12:22 PM EDT) Anatomical Region Laterality Modality Chest Radiographic Diana ging 02/01/2025 12:2 2 PM EDT Narrative 02/01/2025 12:42 PM EDT ? [facility] ?[address] ?[place] [address] ?XRay Report ? Signed ? Patient: Max,Jazmine ?MR#: [id number] ?? [id number] ? : 1965 ?Acct:[id number] ? Age/Sex: 59 / F ?ADM Date: 02/01/25 ? Loc: HO.XRAY ? Attending Dr: Emily Weaver DNP, DYE AUTOMATION OPERATOR-BC ? Ordering Physician: Emily Weaver DNP DYE AUTOMATION OPERATOR-BC ?? Date of Service: 02/01/25 ?? Procedure(s): XR chest 2V ?? Accession Number(s): [id number] ? cc: Emily Weaver DNP, DYE AUTOMATION OPERATOR-BC; Catherine Jon MD ? EXAMINATION: ?? XR [...] DD/ 1222 ? TD/TT: 02/01/25 1235 ? Manager Food: ? Procedure Note Donbree, Image - 02/01/[address] [address] XRay Report Signed Patient: Jazmine MaxMR#: [id number] : 1965Acct:[id number] Age/Sex: 59 / FADM Date: 02/01/25 Loc: KALYN Attending Dr: JEFF Johnson DNP Ordering Physician: Emily Weaver DNP, FNP-BC Date of Service: 02/01/25 Procedure(s): XR chest 2V Accession Number(s): [id number] cc: Emily Weaver DNP, FNP-BC; Catherine Jon [...] 02/01/25 1240 DD/ 1222 TD/TT: 02/01/25 1235 Manager Food: [facility] External Provider IMG XR PROCEDURES Edited Result - Final * (ABNORMAL) POCT HGB A1C (09/21/2024 11:15 AM EST) Hemoglobin A1C 6.9(A) 4.0 - 6.0 % QC Media Lot # [id number] Lot# Expiration Date [id number] Blood 09/21/2024 11:1 5 AM EST Catherine Jon MD POINT OF CARE TEST ENTER/EDIT ORDERABLES Final Result * (ABNORMAL) Lipid Panel, Standard (03/03/2024 1:43 PM EDT) Triglycerides 201(H) <150 mg/dL [facility] Comment:Desirable Triglyceri de: less than 150 mg/dLBorderline High Triglyceride 150-199 mg/dLHigh Triglyceride: 200-499 mg/dLVery High Triglyceride: greater than or equal to 5OO mg/dL Cholesterol 146 <200 mg/dL [facility] Comment:Desirable Cholestero l: less than 200 mg/dLBorderline High Cholesterol: 200-239 mg/dLHigh Cholesterol: greater than 239 mg/dL LDL Cholesterol Calculated 69 <100 mg/dL [facility] Comment:Desirable LDL: less than 100 mg/dLNear Optimal/Above Optimal LDL: 110- 129 mg/dLBorderline High LDL: 130-159 mg/dLHigh LDL: 160-189 mg/dLVery High LDL: greater than or equal to 190 mg/dL HDL Cholesterol 37(L) >40 mg/dL [facility] Comment:Desirable HDL: great er than 40 mg/dL Note: This HDL assay may give artificially low results in patients with liver disease. Blood Venous blood specimen / Unknown 03/03/2024 1:43 PM EDT 03/03/2024 3:58 PM EDT Aby Vazquez MD LAB BLOOD ORDERABLES Final Resul t [facility] [address] [place] [address] [phone] * BI Mammogram Screening Tomosynthesis Bilateral (02/25/2024 3:03 PM EDT) Anatomical Region Laterality Modality Breast Bilateral Mammography 02/25/2024 3:03 PM EDT Narrative 03/21/2024 4:41 PM EDT ? [facility] [place] ? [address] ?[place] [address] ? Mammography Report ? Signed ? Patient: Max,Jazmine ?MR#: [id number] ?? [id number] ? : 1965 ?Acct:[id number] ? Age/Sex: 58 / F ?ADM Date: 02/25/24 ? Loc: HO.MAMMO ? Attending Dr: Anne Talamantes DO ? Ordering Physician: Anne Talamantes DO ?Results: 1N ?? egative ? Date of Service: 02/25/24 ?Follow Up: 1 Year From Orig ?? inal Mammogram ? Procedure(s): MM tomosynthesis screening BI ?? Accession Number(s): [id number] ? cc: Anne Talamantes DO ? EXAMINATION: [...] 1637 ? DD/ 1503 ? TD/TT: ? Manager Food: ? Procedure Note Adriana, Image - 03/21/2024 [facility] [address] [place] [address] [place] [address] Mammography Report Signed Patient: Jazmine MaxMR#: [id number] : 1965Acct:[id number] Age/Sex: 58 / FADM Date: 02/25/24 Loc: VENESSA Attending Dr: Anne Talamantes DO Ordering Physician: Anne Talamantesults: 1N egative Date of Service: 02/25/24Follow Up: 1 Year From Orig inal Mammogram Procedure(s): MM tomosynthesis screening BI Accession Number(s): [id number] cc: Anne Talamantes DO EXAMINATION: MM SCREENING [...] in OV> 03/21/24 1637 DD/ 1503 TD/TT: Manager Food: Anne Talamantes DO IMG BI PROCEDURES Final Resu lt * HPV mRNA E6/E7 REFLEX TO HPV 16, 18/45 (11/22/2020 12:00 AM EST) HPV nRNA E6/E7 Not Detected Not Detected [facility] Comment: Methodology: Sumo Wrestler-Mediated Amplification This assay detects E6/E7 viral messenger RNA (mRNA) from 14 high-risk HPV types (16,18,31,33,35,39,45,51,52,56,58,59,66,68). ? The analytical performance characteristics of this assay have been determined by [employer]. The modifications have not been cleared or approved by the FDA. This assay has been validated pursuant to the CLIA regulations and is used for clinical purposes. ?? For additional information, please refer to http://education.Orabrush/AVH728l8 (This link if provided for information/ educational purposes only.) 11/22/2020 Anne Talamantes DO LAB CYTOLOGY ORDERABLES Jolanta l Result [facility] [address] [place] [address], * Hm Colonoscopy (03/08/2019 11:49 AM EDT) Historical Provider HEALTH MAINTENANCE Final Result from Last 3 Months or Most Recently Relevant to Health [place] [address] [facility] * Guarantor: Jazmine Max Account Type Relation to Patient Date of Phone Billing Address Personal/[place] [address] * Guarantor: Jazmine Max Account Type Relation to Patient Date of Phone Billing Address Personal/[place] [address] * Guarantor: Jazmine Max Account Type Relation to Patient Date of Phone Billing Address Personal/[place] [address] Care Teams Electron Tube Assembler Relationship Specialty Start Date End Date Catherine Jon MD [address] [place] [address] [place] [address] PCP - General Family Medicine 09/21/24 [facility] 07/26/24 Blaire Alcantara MD [facility] [address] [facility] [address] [place] [address] Medical Oncologist Hematology and Oncology 09/21/24 Jung Maxwell MD [facility] [address] [place] [address] Consulting Physician Urology 09/21/24 Bryant Ferro DO Consulting Physician Cardiology 09/21/24 [facility] [address] [place] [address] Consulting Physician Nephrology 09/21/24 Denilson Fay MD, PhD [facility] [address] [place] [address] Consulting Physician Ophthalmology 09/21/24 [employer], FLAT IRONER Agency [address] [place] [address] Personal Care Services 09/21/24
--- OUTSIDE RECORDS SUMMARY | 2025-02-07 12:21 | XMS_ITS | Encounter Summary ---
Author Organization [email or web address] Address [address] [facility] 7t [place] [address] Care Team Providers Care Cream Gatherer Name Role Phone Catherine Jon MD Primary Care Provider [phone] Reason for Visit * Reason Onset Date Comments Nurse Triage 11/07/2024 Encounter Details Date Type Department Care Team ([facility] st Contact Info) Description 11/07/2024 Telephone [facility] [address] [place] [address] Catherine Jon MD [address] [place], [place] [phone] Nurse Triage Social History Tobacco Use Types [...] and is very itchy Duration 1x week Urdu speaking documented in this encounter Plan of Treatment Not on file documented as of this encounter Visit Diagnoses Not on filedocumented in this encounter Care Teams Cream Gatherer Relationship Specialty Start Date End Date Catherine Jon MD [address] [place] [address] PCP - General Family Medicine 09/21/24 [facility] 07/26/24 Blaire Alcantara MD [facility] [address] [place] [address] [address] [place] [address] Medical Oncologist Hematology and Oncology 09/21/24 Jung Maxwell MD [facility] [address] [place] [address] [address] Consulting Physician Urology 09/21/24 Bryant Ferro DO Consulting Physician Cardiology 09/21/24 [facility] [address] [place] [address] Consulting Physician Nephrology 09/21/24 Denilson Fay MD, PhD [facility] [place] [facility] [address] [place] [address] Consulting Physician Ophthalmology 09/21/24 [employer], CHIEF MEDICAL OFFICER Agency [address] [place] [address] Personal Care Services 09/21/24 documented as of this encounter
--- OUTSIDE RECORDS SUMMARY | 2025-02-07 12:21 | XMS_ITS | Encounter Summary ---
Author Organization [employer] Address [address] [facility] 7t [place] [address] Care Team Providers Care Nylon Operator Name Role Phone Catherine Jon MD Primary Care Provider [phone] Encounter Details Date Type Department Care Team (Late st Contact Info) Description 09/24/2022 Orders Only [facility] MEDICINE [address] [place], [place] [phone] Lydia Haq RN Social History Tobacco Use [...] on filedocumented in this encounter Care Teams Nylon Operator Relationship Specialty Start Date End Date Catherine Jon MD [address] [facility] [place] [place] [address] PCP - General Family Medicine 09/21[facility]24 [facility] Blaire Alcantara MD [facility] [address] [place] [address] [address] [place] [address] Medical Oncologist Hematology and Oncology 09/21/24 Jung Maxwell MD [facility] [address] [place] [address] [place] [address] Consulting Physician Urology 09/21/24 Bryant Ferro DO Consulting Physician Cardiology 09/21/24 [facility] [address] [place] [address] Consulting Physician Nephrology 09/21/24 Denilson Fay MD, PhD [facility] [address] [place] [address] Consulting Physician Ophthalmology 09/21/24 [employer], BRUSH TRIMMING MACHINE SETTER Agency [address] [place] [address] Personal Care Services 09/21/24 documented as of this encounter
--- OUTSIDE RECORDS SUMMARY | 2025-02-07 12:21 | XMS_ITS | Encounter Summary ---
Author Organization [employer] Address [address] [place] [address] 7t [place] [address] Care Team Providers Care Heel Reducer Name Role Phone Catherine Jon MD Primary Care Provider [phone] Reason for Visit * Reason Comments Med Refill Encounter Details Date Type Department Care Team ([facility] st Contact Info) Description 02/26/2023 Refill [facility] MEDICINE [address] [place], [place] [phone] Claribel Dalton MD [address] [place] [address] Type 2 diabetes mellitus with hyperglycemia, unspecified whether oysterman insulin use (CMS/[facility]) Social History Tobacco Use Types Packs/Day Years [...] with hyperglycemia, unspecified whether mcfp insulin use (CMS/[facility]) documented in this encounter Care Teams Heel Reducer Relationship Specialty Start Date End Date Catherine Jon MD [address] [facility] [place] [address] PCP - General Family Medicine 09/21/24 [facility] 07[facility]24 Blaire Alcantara MD [facility] [address] [place] [address] [address] [place] [address] Medical Oncologist Hematology and Oncology 09/21/24 Jung Maxwell MD [facility] [address] [place] [address] [place] [address] Consulting Physician Urology 09/21/24 Bryant Ferro DO Consulting Physician Cardiology 09/21/24 [facility] [address] [place] [address] Consulting Physician Nephrology 09/21/24 Denilson Fay MD, PhD [facility] [address] [place] [address] Consulting Physician Ophthalmology 09/21/24 [employer], PRELIMINARY SCHOOL PSYCHOLOGIST Agency [address] [place] [address] Personal Care Services 09/21/24 documented as of this encounter
--- OUTSIDE RECORDS SUMMARY | 2025-02-07 12:21 | XMS_ITS | Patient Health Record ---
Author Organization Estuardo Kenyon III, MD Address [address] [place] [address] [place] [address] Care Team Providers Care Molder Labels Name Role Phone YENI SALGUERO Primary Care Provider Estuardo Kenyon [phone] Allergies Allergen (clinical drug ingredient) Drug/Non Drug Allergy documented on EMR Reaction Allergy Type Onset Date Status No Known Drug Allergy Unknown Drug Allergy Active Reason For Referral Reason Consult and Treat Diagnosis 1 End-stage renal dise ase (N18.6) Diagnosis 2 Chronic kidney disea se, stage 5 (N18.5) Referral Organization [facility] nter Referring Provider First Name YENI Referring Provider Last Name NOEMY Referring Provider Speciality Family Med icine Referred Organization Estuardo Kenyon III, MD Referred Provider Estuardo Kenyon Referred Address [address] [place] [address] [address],[place], [place],[address], Referred Provider Specialty Oncology Referral Priority Routine Reason urothelial cancer ev aluate and treat Diagnosis 1 Malignant neoplasm o f urinary bladder, unspecified site (C67.9) Referral Organization Estuardo Kenyon III, MD Referring Provider First Name Estuardo Referring Provider Last Name Chantale Referring Provider Speciality Internal M edicine Referred Provider HI ZHOU Referred Provider Specialty Oncology General Notes Mary,Esther PAPER AND PRINTS RESTORER 02/26 02:14:17 PM EDT > pt dtr Olga called given appt information and ref/progress notes and all testing faxed to Dr Zhou at [phone] Referral Priority Routine Referral Appointment Date 03/17/2024 [...] Problem Status W/U Status Risk Notes Problem 928132868 Anemia in chronic kidney disease (D63.1) Active confirmed Her blood pressure is currently 139/69 and no change in her regimen as needed. Problem 290222002 Type 2 diabetes mellitus with diabetic chronic kidney disease (E11.22) Active confirmed Problem 575296026 Chronic kidney disease, stage 5 (N18.5) Active confirmed Problem 60230442 Secondary hyperparathyroid ism of renal origin (N25.81) Active confirmed She is in end-stage renal disease. 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 The fistula in the left upper lung appears to be maturing well. The dialysis catheter and right upper chest wall is intact and seems to function normally. Problem 266289043 Malignant neoplasm of urinary bladder, unspecified site (C67.9) Active confirmed The tumor appears to be widespread. We will need to review the images with the radiologist to clarify the nature of the mass in or I can tellnear the right kidney. Problem 62685473 Cardiomyopathy, unspecified type (I42.9) Active confirmed Problem 927511201506978405 Progressive macular hypomelanosis (L81.6) Active confirmed Problem 006555719 AVF (arteriovenous fistula) (I77.0) Active confirmed Problem 31624877 End-stage renal disease (N18.6) Active confirmed Problem 15800468 Type 2 diabetes mellitus with diabetic nephropathy, unspecified whether terminal worker insulin use (E11.21) Active confirmed Diabetes currently seems well controlled. Vital Signs Heart Rate 91 /min 03/16/2024 Temperature 98.1 degrees Fahrenheit 03/16/2024 Blood pressure diastolic 69 mm Hg 03/16/2024 Height 5' 1 in 03/16/2024 Blood pressure systolic 139 mm Hg 03/16/2024 Weight 160 lbs 03/16/2024 BMI 30.23 kg/m2 03/16/2024 Encounters Encounter Location Date Provider Diagnosis Estuardo Kenyon III, MD [address] [place] [address] [place] [address] 03/16/2024 Estuardo Kenyon Chronic renal failur e, stage 4 (severe) N18.4 ; Malignant neoplasm of urinary bladder, unspecified site C67.9 ; Type 2 diabetes mellitus with diabetic nephropathy, unspecified whether terminal worker insulin use E11.21 ; Secondary hyperparathyroidism of [...] (ICD-10 - N18.4) We have made the sales department supervisor aware of the situation. The fistula in [...] apoorva itus with diabetic nephropathy, unspecified whether terminal worker insulin use (ICD-10 - E11.21) Diabetes currently [...] Start Date Coverage End Date [place] [facility] [address] [place] GONZALE[place] [id number] Jazmine Max Self - patient is the insured
--- OUTSIDE RECORDS SUMMARY | 2025-02-07 12:21 | XMS_ITS ---
Author Organization Estuardo Kenyon III, MD Address [address] [place] [address] Care Team Providers Care Decision Science Analyst Name Role Phone YENI SALGUERO Primary Care Provider [phone] Estuardo Kenyon Unavailable [phone] Allergies Allergen (clinical drug ingredient) Drug/Non Drug [...] Provider Specialty Oncology General Notes Esther Hernandez MAJOR GIFTS DIRECTOR 02/26 02:14:17 PM EDT > pt dtr Olga called given appt information and ref/progress notes and all testing faxed to Dr Zhou at [phone] Referral Priority Routine Referral Appointment Date 03/17/2024 [...] Problem Status W/U Status Risk Notes Problem 85307086 Cardiomyopathy, unspecified type (I42.9) Active confirmed Problem 71834154 Chronic renal failure, stage 4 (severe) (N18.4) Active confirmed We have mad e the information systems audit manager aware of the situation. The fistula in the left upper lung appears to be maturing well. The dialysis catheter and right upper chest wall is intact and seems to function normally. Problem 18145505 Hypertension, unspecified type (I10) Active confirmed Problem [id number] Progressive macular hypomelanosis (L81.6) Active confirmed Problem 511435811 AVF (arteriovenous fistula) (I77.0) Active confirmed Problem 91892946 End-stage renal disease (N18.6) Active confirmed Problem 120627030 Pacemaker (Z95.0) Active confirmed Problem 636772829 History of adenomatous polyp of colon (Z86.010) Active confirmed Problem 938657752 Type 2 diabetes mellitus with diabetic chronic kidney disease (E11.22) Active confirmed Problem 935685708 Chronic kidney disease, stage 5 (N18.5) Active confirmed Problem 711187017 air pollution engineer (current) use of insulin (Z79.4) Active confirmed Problem 373883475 Anemia in chronic kidney disease (D63.1) Active confirmed Her blood pressure is currently 139/69 and no change in her regimen as needed. Problem 13461706 Type 2 diabetes mellitus with diabetic nephropathy, unspecified whether longterm insulin use (E11.21) Active confirmed Diabetes currently seems well controlled. Problem 66411770 Secondary hyperparathyroid ism of renal origin (N25.81) Active confirmed She is in end-stage renal disease. Problem 004282103 Malignant neoplasm of urinary bladder, unspecified site [...] Date Provider Diagnosis Estuardo Kenyon III, MD [address] [place] [address] [address] [place], [place] [id number] 03/16/2024 Estuardo Kenyon Chronic renal failur e, stage 4 (severe) N18.4 ; Malignant neoplasm of urinary bladder, unspecified site C67.9 ; Type 2 diabetes mellitus with diabetic nephropathy, unspecified whether longterm insulin use E11.21 ; Secondary hyperparathyroidism of [...] (ICD-10 - N18.4) We have made the information systems audit manager aware of the situation. The fistula [...] apoorva itus with diabetic nephropathy, unspecified whether mechanical system technician insulin use (ICD-10 - E11.21) Diabetes currently [...] * Jazmine RILEYDOB: [birth year] (58 yo F)Acc No.[id number]:03/16/2024 Patient:?Jazmine Riley Provider:?Estuardo Kenyon MD :1965???Age:58 Y???Sex:Female D ate:03/16/2024 Address:[address] [place] [address] STEFFANY [id number] Pcp:YENI SALGUERO Subjective: * Chief Complaints: * [...] yet as it is still healing. Her information systems audit manager is Dr. Martinez. She receives primary care at the [facility]. A CT scan of the abdomen at the [facility] recently showed a large mass in the [...] have referred her to medical oncology at [facility] for further staging and definitive treatment. ?Questions?Have [...] - N18.4 (Primary), We have made the information systems audit manager aware of the situation. The fistula [...] diabetes mellitus with diabetic nephropathy, unspecified whether longterm insulin use - E11.21, Diabetes currently seems [...] ?Reason:urothelial cancer evaluate and treat * Procedure Codes:?06840 TRANS CARE MGMT 7 DAY DISCH * [...] Kenyon MD Date:?02/26 Generated for Maddy car/Faxing/eTransmitting on:?02/07/2025 12:21 PM EDT History and Physical Notes * [...] days?: No Have you travelled internationally in [facility] last 10 days?: No Have [...] Referral Date Referring Provider Referred Provider Not es 03/16/2024 Esturado Kenyon RENUKA urothelial c ancer evaluate and treat
--- OUTSIDE RECORDS SUMMARY | 2025-02-07 12:21 | XMS_ITS | Encounter Summary ---
Author Organization [employer] Address [address] [facility] 7t [place] [address] Care Team Providers Care Rotary Drum Tanner Name Role Phone Catherine Jon MD Primary Care Provider [phone] Encounter Details Date Type Department Care Team ([facility] st Contact Info) Description 03/02/2023 Orders Only [facility] CHC MED & PEDS [address] [facility] [place] [address] Anne Gama LPN Social History Tobacco Use [...] on filedocumented in this encounter Care Teams Rotary Drum Tanner Relationship Specialty Start Date End Date Catherine Jon MD 505 [facility] [place] [address] PCP - General Family Medicine 09/21/24 [facility] 07/26/24 Blaire Alcantara MD [facility] Oncology Center [address] [place] [address] [address] [place] [address] Medical Oncologist Hematology and Oncology 09/21/24 Jung Maxwell MD [facility] Urology Center [address] [place] [address] [place] [address] Consulting Physician Urology 09/21/24 Bryant Ferro DO Consulting Physician Cardiology 09/21/24 [facility] [address] [place] [address] Consulting Physician Nephrology 09/21/24 Denilson Fay MD, PhD [facility] [address] [place] [address] Consulting Physician Ophthalmology 09/21/24 [employer], RUG LAYER Agency 25 [place] [address] Personal Care Services 09/21/24 documented as of this encounter
--- OUTSIDE RECORDS SUMMARY | 2025-02-07 12:21 | XMS_ITS | Clinical Summary ---
Author Organization [facility] Address [address] [place] [address] [place] [address] Phone Care Team Providers Care Webfed Offset Press Operator Name Role Phone Anne Talamantes DO [...] 9.2 8.7 - 10.7 mg/dL eGFR Non-Afr Armenian 14 Total Bilirubin 0.4 MG/DL Bilirubin Direct 0.1 ALT (SGPT) 13 U/L AST (SGOT) 12 U/L Alkaline Phosphatase 102 U/L Vitamin D, 25-OH, Total 38 ng/mL Hemoglobin A1C 7.6(A) 4.0 - 6.0 Alb/Creat Ratio, Ur 3,229 mg/g Creat Triglycerides 202 Cholesterol, Total 130 HDL 35 mg/dL LDL-Calculated 68 08/10/2022 [facility] Provider LAB BLOOD ORDERABLES Jolanta l Result from Last 3 Months or Most Recently Relevant to Health Maintenance Insurance Medicaid [place] Medicaid [place] Care Teams Webfed Offset Press Operator Relationship Specialty Start Date End Date Anne Talamantes DO [address] [place] [address] PCP - General 10/07/20
--- OUTSIDE RECORDS SUMMARY | 2025-02-07 12:21 | XMS_ITS | Encounter Summary ---
Author Organization [employer] Address [address] [facility] 7t [place] [address] Care Team Providers Care Manager Winter Name Role Phone Catherine Jon MD Primary Care Provider [phone] Reason for Visit * Reason Onset Date Comments Call Back Request 11/23/2024 Encounter Details Date Type Department Care Team ([facility] Contact Info) Description 11/23/2024 Telephone [facility] MEDICINE 230 [place] [address] Catherine Jon MD [address] [place], [place] [phone] Call Back Request Social History Tobacco Use [...] from pt requesting a call back from [employer]. Contact pt at [phone] documented in this encounter Plan of Treatment Not on file documented as of this encounter Visit Diagnoses Not on filedocumented in this encounter Care Teams Manager Winter Relationship Specialty Start Date End Date Catherine Jon MD 505 [place] [address] PCP - General Family Medicine 09/[facility]24 [facility] Blaire Alcantara MD [facility] Oncology Center [address] [place] [address] [address] [place] [address] Medical Oncologist Hematology and Oncology 09/21/24 Jung Maxwell MD [facility]rology Center [address] [place] [address] Consulting Physician Urology 09/21/24 Bryant Ferro DO Consulting Physician Cardiology 09/21/24 [facility] [address] [place] [address] Consulting Physician Nephrology 09/21/24 Denilson Fay MD, PhD [facility] [place] [facility] [place] [facility] [address] [place] [address] Consulting Physician Ophthalmology 09/21/24 [employer], FOOD BROKER Agency 25 [place] [address] Personal Care Services 09/21/24 documented as of this encounter
--- OUTSIDE RECORDS SUMMARY | 2025-02-07 12:21 | XMS_ITS | Encounter Summary ---
Author Organization [employer] Address [address] [facility] 7t [place] [address] Care Team Providers Care Room Service Waiter Name Role Phone Catherine Jon MD Primary Care Provider [phone] Reason for Visit * Reason Comments Med Refill Encounter Details Date Type Department Care Team ([facility] st Contact Info) Description 11/08/2024 Refill [facility] MEDICINE 230 [place], [place] [phone] Anne Talamantes DO 230 [place], [place] [phone] Social History Tobacco Use Types Packs/Day Years [...] on filedocumented in this encounter Care Teams Room Service Waiter Relationship Specialty Start Date End Date Catherine Jno MD 505 [place] [address] PCP - General Family Medicine 09/21/24 [facility] 07/26/24 Blaire Alcantara MD [facility] On[facility] Center [address] [facility] [address] [place] [address] Medical Oncologist Hematology and Oncology 09/21/24 Jung Maxwell MD [facility]rology Center [address] [place] [address] Consulting Physician Urology 09/21/24 Bryant Ferro DO Consulting Physician Cardiology 09/21/24 [facility] [address] [place] [address] Consulting Physician Nephrology 09/21/24 Denilson Fay MD, PhD [facility] [address] [place] [address] Consulting Physician Ophthalmology 09/21/24 [employer], SHIP'S CAPTAIN Agency 25 [place] [address] Personal Care Services 09/21/24 documented as of this encounter
--- OUTSIDE RECORDS SUMMARY | 2025-02-07 12:21 | XMS_ITS | Encounter Summary ---
Author Organization [employer] Address [address] [facility] 7t [place] [address] Care Team Providers Care Production Machine Shop Supervisor Name Role Phone Catherine Jon MD Primary Care Provider [phone] Reason for Visit * Reason Onset Date Comments Change PCP 08/03/2024 Encounter Details Date Type Department Care Team ([facility] st Contact Info) Description 08/03/2024 Telephone [facility] MEDICINE 230 [place], [place] [phone] Anne Talamantes DO 230 [place], [place] [phone] Change PCP Social History Tobacco Use Types [...] from pt stating she has moved to [place] and is requesting to change locations due to convince. If any questions you can contact pt at [phone]. (Swiss Speaker) documented in this encounter Plan of Treatment Not on file documented as of this encounter Visit Diagnoses Not on filedocumented in this encounter Care Teams Production Machine Shop Supervisor Relationship Specialty Start Date End Date Catherine Jon MD [address] [place] [address] PCP - General Family Medicine 09/21/24 [facility] 07/26/24 Blaire Alcantara MD [facility] Oncology Center [address] [facility] [address] [place] [address] Medical Oncologist Hematology and Oncology 09/21/24 Jung Maxwell MD [facility] Urology Center [address] [place] [address] [place] [address] Consulting Physician Urology 09/21/24 Bryant Ferro DO Consulting Physician Cardiology 09/21/24 [facility] [address] [place] [address] Consulting Physician Nephrology 09/21/24 Denilson Fay MD, PhD [facility] [address] [place], [place] [address]58[address]89 Consulting Physician Ophthalmology 09/21/24 [employer], PIPE AND TANK FABRICATOR Agency 25 [place], [place] [phone] Personal Care Services 09/21/24 documented as of this encounter
--- OUTSIDE RECORDS SUMMARY | 2025-02-07 12:21 | XMS_ITS | Clinical Summary ---
Author Organization [facility] Address [address] [place] [address] Phone Care Team Providers Care Automated Equipment Engineer Technician Name Role Phone Unavailable Primary Care Provider [...]
--- OUTSIDE RECORDS SUMMARY | 2025-02-07 12:21 | XMS_ITS | Encounter Summary ---
Author Organization [email or web address] Address [address] [facility] 7t [place] [address] Care Team Providers Care Director Market Intelligence Name Role Phone Catherine Jon MD Primary Care Provider [phone] Encounter Details Date Type Department Care Team ([facility] st Contact Info) Description 01/21/2023 Orders Only [facility] CHC MED & PEDS 505 [place] [address] Anne Gama LPN Social History Tobacco Use [...] on filedocumented in this encounter Care Teams Director Market Intelligence Relationship Specialty Start Date End Date Catherine Jon MD 505 [facility] [place] [address] PCP - General Family Medicine 09/21/24 [facility] 07[facility]24 Blaire Alcantara MD [facility] Oncology Center [address] [place] [address] [address] [place] [address] Medical Oncologist Hematology and Oncology 09/21/24 Jung Maxwell MD [facility] Urology Center [address] [place] [address] [place] [address] Consulting Physician Urology 09/21/24 Bryant Ferro DO Consulting Physician Cardiology 09/21/24 [facility] [address] [place] [address] Consulting Physician Nephrology 09/21/24 Denilson Fay MD, PhD [facility] 180 [place] [address] Consulting Physician Ophthalmology 09/21/24 [employer], MOTTLER OPERATOR Agency 25 [place] [address] Personal Care Services 09/21/24 documented as of this encounter
--- OUTSIDE RECORDS SUMMARY | 2025-02-07 12:21 | XMS_ITS | Encounter Summary ---
Author Organization [employer] Address [address] [facility] 7t [place] [address] Care Team Providers Care Senior Executive Assistant Name Role Phone Catherine Jon MD Primary Care Provider [phone] Encounter Details Date Type Department Care Team (Late st Contact Info) Description 11/23/2022 Orders Only [facility] MEDICINE 230 [place], [place] [phone] Ana Cristina Haq LPN Social History Tobacco [...] filedocumented in this encounter Care Teams Senior Executive Assistant Relationship Specialty Start Date End Date Catherine Jon MD 505 [facility] [place] [address] PCP - General Family Medicine 09/21/24 [facility] Blaire Alcantara MD [facility] Oncology Center [address] [facility] [address] [place] [address] Medical Oncologist Hematology and Oncology 09/21/24 Jung Maxwell MD [facility] Urology Center [address] [place] [address] [place] [address] Consulting Physician Urology 09/21/24 Bryant Ferro DO Consulting Physician Cardiology 09/21/24 [facility] [address] [place] [address] Consulting Physician Nephrology 09/21/24 Denilson Fay MD, PhD [facility] 180 [place], [place] [phone] Consulting Physician Ophthalmology 09/21/24 [employer], SHELLFISH PROCESSING MACHINE TENDER Agency 25 [place] [address] Personal Care Services 09/21/24 documented as of this encounter
--- OUTSIDE RECORDS SUMMARY | 2025-02-07 12:21 | XMS_ITS | Encounter Summary ---
Author Organization [employer] Address 75 [facility] 7t [place] [address] Care Team Providers Care Enrichment Assistant Name Role Phone Catherine Jon MD Primary Care Provider [phone] Encounter Details Date Type Department Care Team ([facility] st Contact Info) Description 09/30/2022 Orders Only [facility] CHC MED & PEDS 505 [facility] [place] [address] Anne Gama LPN Social History Tobacco Use [...] on filedocumented in this encounter Care Teams Enrichment Assistant Relationship Specialty Start Date End Date Catherine Jon MD 505 [facility] [place] [address] PCP - General Family Medicine 09/21/24 [facility] Blaire Alcantara MD [facility] Oncology Center [address] [place] [address] [address] [place] [address] Medical Oncologist Hematology and Oncology 09/21/24 Jung Maxwell MD [facility] Center [address] [place] [address] [place] [address] Consulting Physician Urology 09/21/24 Bryant Ferro DO Consulting Physician Cardiology 09/21/24 [facility] [address] [place] [address] Consulting Physician Nephrology 09/21/24 Denilson Fay MD, PhD [facility] 180 [place] [address] Consulting Physician Ophthalmology 09/21/24 [employer], SPONGE BUFFER Agency 25 [place] [address] Personal Care Services 09/21/24 documented as of this encounter
--- OUTSIDE RECORDS SUMMARY | 2025-02-07 12:22 | XMS_ITS | Encounter Summary ---
Author Organization [employer] Address 75 [facility] 7t [place] [address] Care Team Providers Care Mask Design Engineer Name Role Phone Catherine Jon MD Primary Care Provider [phone] Encounter Details Date Type Department Care Team (Late st Contact Info) Description 01/06/2024 Orders Only [facility] MEDICINE 230 [place], [place] [phone] Provider, MD Karoline Social History Tobacco Use [...] on filedocumented in this encounter Care Teams Mask Design Engineer Relationship Specialty Start Date End Date Catherine Jon MD [address] [facility] [place] [address] PCP - General Family Medicine 09/21/24 [facility] 07/26/24 Blaire Alcantara MD [facility] Oncology Center [address] [facility] [address] [place] [address] Medical Oncologist Hematology and Oncology 09/21/24 Jung Maxwell MD [facility] Urology Center [address] [place] [address] [place] [address] Consulting Physician Urology 09/21/24 Bryant Ferro DO Consulting Physician Cardiology 09/21/24 [facility] [address] [place] [address] Consulting Physician Nephrology 09/21/24 Denilson Fay MD, PhD [facility] 180 [place] [address] Consulting Physician Ophthalmology 09/21/24 [employer], MEDIUM CYCLE SALESPERSON Agency 25 [place] [address] Personal Care Services 09/21/24 documented as of this encounter
--- OUTSIDE RECORDS SUMMARY | 2025-02-07 12:22 | XMS_ITS | Encounter Summary ---
Author Organization [employer] Address [address] [facility] 7t [place] [address] Care Team Providers Care Newspaper Copy Editor Name Role Phone Catherine Jon MD Primary Care Provider [phone] Reason for Visit * Reason Comments Med Refill Encounter Details Date Type Department Care Team ([facility] st Contact Info) Description 02/02/2025 Refill [facility] MEDICINE 230 [place] [address] Amanda Rider MD 505 [place], [place] [phone] Type 2 diabetes mellitus with diabetic neuropathy, unspecified whether fci insulin use ([facility]) Social History Tobacco Use Types Packs/Day Years [...] Diagnoses Diagnosis Type 2 diabetes mellitus with diabetic neuropathy, unspecified whether extermination supervisor insulin use ([facility]) documented in this encounter Care Teams Newspaper Copy Editor Relationship Specialty Start Date End Date Catherine Jon MD 505 [place] [address] PCP - General Family Medicine 09/21/24 [facility] Blaire Alcantara MD [facility] Oncology Center [address] [place] [address] [address] [place] [address] Medical Oncologist Hematology and Oncology 09/21/24 Jung Maxwell MD [facility] Urology Center [address] [place] [address] Consulting Physician Urology 09/21/24 Bryant Frero DO Consulting Physician Cardiology 09/21/24 [facility] [address] [place] [address] Consulting Physician Nephrology 09/21/24 Denilson Fay MD, PhD [facility] 180 [place] [address] Consulting Physician Ophthalmology 09/21/24 [employer], WASHER ASSEMBLER Agency 25 [facility] [place] [address] Personal Care Services 09/21/24 documented as of this encounter
--- OUTSIDE RECORDS SUMMARY | 2025-02-07 12:22 | XMS_ITS | Encounter Summary ---
Author Organization [employer] Address [address] [facility] 7t [place] [address] Care Team Providers Care Government Clerk Name Role Phone Catherine Jon MD Primary Care Provider [phone] Encounter Details Date Type Department Care Team (Late st Contact Info) Description 02/07/2025 Orders Only GENERIC EXTERNAL DATA DEPARTMENT Provider, Generic External Data Social History Tobacco Use Types Packs/Day Years [...] WHOLE BLOOD Routine 02/07/2025 11:32 AM EDT documented in this encounter Results * (ABNORMAL) Glucose, Whole Blood (02/07/2025 11:32 AM EDT) Glucose, Whole Blood 170(H) 60 - 115 mg/dL [facility] Comment:METER #: [id number] Testing performed in the Endocrinology Department [address] , [address], [facility]. 02/07/2025 11:3 2 AM EDT 02/07/2025 11:37 AM EDT us Generic External Data Provider LAB BLOOD ORDERAB LES Final Result [facility] [address] [place] [address] [phone] documented in this encounter Visit Diagnoses Not on filedocumented in this encounter Care Teams Government Clerk Relationship Specialty Start Date End Date Catherine Jon MD [address] [place] [address] PCP - General Family Medicine 09/21/24 [facility] Blaire Alcantara MD [facility] Oncology Center [address] [place] [address] [address] [place] [address] Medical Oncologist Hematology and Oncology 09/21/24 Jung Maxwell MD [facility] Urology Center [address] [place] [address] Dr Perez [address] [place] [address] Consulting Physician Urology 09/21/24 Bryant Ferro DO Consulting Physician Cardiology 09/21/24 [facility] [address] [place] [address] Consulting Physician Nephrology 09/21/24 Denilson Fay MD, PhD [facility] [place] [facility] [address] [address] Consulting Physician Ophthalmology 09/21/24 [employer] Latif, [facility] Agency [address] [place] [address] Personal Care Services 09/21/24 documented as of this encounter
--- OUTSIDE RECORDS SUMMARY | 2025-02-07 12:22 | XMS_ITS | Encounter Summary ---
Author Organization [employer] Address [address] [facility] 7t [place] [address] Care Team Providers Care Crisis Specialist Name Role Phone Catherine Jon MD Primary Care Provider [phone] Reason for Visit * Reason Onset Date Comments Hospital Follow-up 04/11/2024 Encounter Details Date Type Department Care Team ([facility] st Contact Info) Description 04/11/2024 Telephone [facility] MEDICINE 230 [place], [place] [phone] Anne Talamantes DO 230 [place], [place] [phone] Hospital Follow-up Social History Tobacco Use Types [...] from pt requesting a HDF appt. Hospital: [facility] Date of admission: 04/07 Discharge date: 04/11 Diagnosed: Kidney Failure documented in this encounter Plan of Treatment Not on file documented as of this encounter Visit Diagnoses Not on filedocumented in this encounter Care Teams Crisis Specialist Relationship Specialty Start Date End Date Catherine Jon MD 505 [place] [address] PCP - General Family Medicine 09/21/24 [facility] 07/26/24 Blaire Alcantara MD [facility] Oncology Center [address] [place] [address] Medical Oncologist Hematology and Oncology 09/21/24 Jung Maxwell MD [facility] Urology Center [address] [place] [address] [place] [address] Consulting Physician Urology 09/21/24 Bryant Ferro DO Consulting Physician Cardiology 09/21/24 [facility] [address] [place] [address] Consulting Physician Nephrology 09/21/24 Denilson Fay MD, PhD [facility] 180 [place], [place] [phone] Consulting Physician Ophthalmology 09/21/24 [employer], SOFTWARE TEST AND VALIDATION ENGINEER Agency [address] [place] [address] Personal Care Services 09/21/24 documented as of this encounter
== END 2025-02-07 11:50 | disposition home or self-care (01) ==
LOC: HO.ENCR 11:22
PROVIDERS: PCP Family Medicine; Visit Provider Internal Medicine
DX: Z13.9 Encounter for screening, unspecified (principal); E11.9 Type 2 diabetes mellitus without complications; Z79.4 Long term (current) use of insulin

== ENCOUNTER → 2025-02-07 11:21 | Outpatient (BNVA) | payer MEDICAID, SELFPAY | PROVIDERS: PCP Family Medicine; Visit Provider Internal Medicine | DX: E11.9 Type 2 diabetes mellitus without complications (principal); Z79.4 Long term (current) use of insulin | CPT/HCPCS: 82947; 83036; 99212 ==

== ENCOUNTER 2025-02-14 09:30 | Outpatient (REF) | payer MEDICAID, SELFPAY ==
--- NOTE | ~2025-02-14 | CT_ITS ---
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 Atherosclerosis calcification of the coronary artery. Tip right side double-lumen catheter is in the right atrium. Pacemaker. The visualized thyroid and mediastinum are unremarkable. The lungs are clear. Limited evaluation of a hypodense lesion in the right kidney. A catheter is partially visualized in the IVC with the tip above the diaphragm. No acute fractures. IMPRESSION: No consolidation of the lung parenchyma. Partially visualized catheter in the IVC with the tip above the diaphragm. Clinical correlation is recommended. This document has been electronically signed by: Ga Taylor MD on 02/14/2025 16:40:14
--- OUTSIDE RECORDS SUMMARY | 2025-02-14 10:45 | XMS_ITS | Encounter Summary ---
Author Organization [employer] Address [address] [facility] 7t [place] [address] Care Team Providers Care Mobile Equipment Servicer Name Role Phone Catherine Jon MD Primary Care Provider [phone] Reason for Visit * Reason Onset Date Comments Change PCP 08/03/2024 Encounter Details Date Type Department Care Team ([facility] st Contact Info) Description 08/03/2024 Telephone [facility] MEDICINE 230 [place], [place] [phone] Anne Talamantes DO 230 [place], [place] [phone] Change PCP Social History Tobacco Use Types [...] from pt stating she has moved to [place] and is requesting to change locations due to convince. If any questions you can contact pt at [phone]. (Ecuadorean Speaker) documented in this encounter Plan of Treatment Not on file documented as of this encounter Visit Diagnoses Not on filedocumented in this encounter Care Teams Mobile Equipment Servicer Relationship Specialty Start Date End Date Catherine Jon MD [address] [place] [address] PCP - General Family Medicine 09/21/24 [facility] 07/26/24 Blaire Alcantara MD [facility] Oncology Center [address] [place] [address] Medical Oncologist Hematology and Oncology 09/21/24 Jung Maxwell MD [facility] Urology Center [address] [place] [address] [place] [address] Consulting Physician Urology 09/21/24 Bryant Ferro DO Consulting Physician Cardiology 09/21/24 [facility] [address] [place] [address] Consulting Physician Nephrology 09/21/24 Denilson Fay MD, PhD [facility] 180 [place], [place] [phone] Consulting Physician Ophthalmology 09/21/24 [employer], AERIAL PHOTOGRAPH INTERPRETER Agency 25 [place], [place] [phone] Personal Care Services 09/21/24 documented as of this encounter
--- OUTSIDE RECORDS SUMMARY | 2025-02-14 10:46 | XMS_ITS | Encounter Summary ---
Author Organization [employer] Address [address] [facility] 7t [place] [address] Care Team Providers Care Parts Department Supervisor Name Role Phone Catherine Jon MD Primary Care Provider [phone] Encounter Details Date Type Department Care Team (Late st Contact Info) Description 11/23/2022 Orders Only [facility] MEDICINE 230 [place], [place] [phone] Ana Cristina Haq LPN Social History Tobacco [...] on filedocumented in this encounter Care Teams Parts Department Supervisor Relationship Specialty Start Date End Date Catherine Jon MD 505 [facility] [place] [address] PCP - General Family Medicine 09/21/24 [facility]24 Blaire Alcantara MD [facility] Oncology Center [address] [facility] [address] [place] [address] Medical Oncologist Hematology and Oncology 09/21/24 Jung Maxwell MD [facility] Urology Center [address] [place] [address] [place] [address] Consulting Physician Urology 09/21/24 Bryant Ferro DO Consulting Physician Cardiology 09/21/24 [facility] [address] [place] [address] Consulting Physician Nephrology 09/21/24 Denilson Fay MD, PhD [facility] 180 [place], [place] [phone] Consulting Physician Ophthalmology 09/21/24 [employer], MACHINE FANCY STITCHER Agency 25 [place] [address] Personal Care Services 09/21/24 documented as of this encounter
--- OUTSIDE RECORDS SUMMARY | 2025-02-14 10:46 | XMS_ITS | Encounter Summary ---
Author Organization [employer] Address [address] [facility] 7t [place] [address] Care Team Providers Care Drilling Inspector Name Role Phone Catherine Jon MD Primary Care Provider [phone] Encounter Details Date Type Department Care Team ([facility] st Contact Info) Description 01/21/2023 Orders Only [facility] MED [facility]ED[facility] 505 [place] [address] Anne Gama LPN Social History Tobacco Use [...] on filedocumented in this encounter Care Teams Drilling Inspector Relationship Specialty Start Date End Date Catherine Jon MD 505 [facility] [place] [address] PCP - General Family Medicine 09/21/24 [facility] Blaire Alcantara MD [facility] [address] [place] [address] [address] [place] [address] Medical Oncologist Hematology and Oncology 09/21/24 Jung Maxwell MD [facility] [address] [place] [address] [place] [address] Consulting Physician Urology 09/21/24 Bryant Ferro DO Consulting Physician Cardiology 09/21/24 [facility] [address] [place] [address] Consulting Physician Nephrology 09/21/24 Denilson Fay MD, PhD [facility] 180 [place] [address] Consulting Physician Ophthalmology 09/21/24 [employer], COIN MACHINE SUPERVISOR Agency 25 [place] [address] Personal Care Services 09/21/24 documented as of this encounter
--- OUTSIDE RECORDS SUMMARY | 2025-02-14 10:46 | XMS_ITS | Encounter Summary ---
Author Organization [employer] Address [address] [place] [address] 7t [place] [address] Care Team Providers Care Physician Office Nurse Name Role Phone Catherine Jon MD Primary Care Provider [phone] Reason for Visit * Reason Comments Med Refill Encounter Details Date Type Department Care Team ([facility] st Contact Info) Description 02/26/2023 Refill [facility] MEDICINE 230 [place], [place] [phone] Claribel Dalton MD 230 [place] [address] Type 2 diabetes mellitus with hyperglycemia, unspecified whether termite inspector insulin use (CMS/[facility]) Social History Tobacco Use Types [...] 2 diabetes mellitus with hyperglycemia, unspecified whether [facility] insulin use (CMS/[facility]) documented in this encounter Care Teams Physician Office Nurse Relationship Specialty Start Date End Date Catherine Jon MD 505 [place] [address] PCP - General Family Medicine 09/21/24 [facility] Blaire Alcantara MD [facility] Oncology Center [address] [place] [address] [address] [place] [address] Medical Oncologist Hematology and Oncology 09/21/24 Jung Maxwell MD [facility] Urology Center [address] [place] [address] [place] [address] Consulting Physician Urology 09/21/24 Bryant Ferro DO Consulting Physician Cardiology 09/21/24 [facility] [address] [place] [address] Consulting Physician Nephrology 09/21/24 Denilson Fay MD, PhD [facility] 180 [place] [address] Consulting Physician Ophthalmology 09/21/24 [employer], LEGAL ASSOCIATE Agency [address] [place] [address] Personal Care Services 09/21/24 documented as of this encounter
--- OUTSIDE RECORDS SUMMARY | 2025-02-14 10:46 | XMS_ITS | Encounter Summary ---
Author Organization [employer] Address [address] [facility] 7t [place] [address] Care Team Providers Care Portable Router Operator Name Role Phone Catherine Jon MD Primary Care Provider [phone] Encounter Details Date Type Department Care Team (Late st Contact Info) Description 09/24/2022 Orders Only [facility] MEDICINE 230 [place], [place] [phone] Lydia Haq RN Social History Tobacco Use [...] on filedocumented in this encounter Care Teams Portable Router Operator Relationship Specialty Start Date End Date Catherine Jon MD 505 [facility] [place] [address] PCP - General Family Medicine 09/21/24 [facility] 07[facility]24 Blaire Alcantara MD [facility] Oncology Center [address] [place] [address] [address] [place] [address] Medical Oncologist Hematology and Oncology 09/21/24 Jung Maxwell MD [facility] Urology Center [address] [place] [address] [place] [address] Consulting Physician Urology 09/21/24 Bryant Ferro DO Consulting Physician Cardiology 09/21/24 [facility] [address] [place] [address] Consulting Physician Nephrology 09/21/24 Denilson Fay MD, PhD [facility] 180 [place] [address] Consulting Physician Ophthalmology 09/21/24 [employer], CARDIAC TECH Agency 25 [place] [address] Personal Care Services 09/21/24 documented as of this encounter
--- OUTSIDE RECORDS SUMMARY | 2025-02-14 10:46 | XMS_ITS | Encounter Summary ---
Author Organization [employer] Address [address] [facility] 7t [place] [address] Care Team Providers Care Clinical Cytogeneticist Scientist Name Role Phone Catherine Jon MD Primary Care Provider [phone] Encounter Details Date Type Department Care Team ([facility] st Contact Info) Description 03/02/2023 Orders Only [facility] MED & PEDS 505 [place] [address] Anne Gama LPN Social History Tobacco Use [...] on filedocumented in this encounter Care Teams Clinical Cytogeneticist Scientist Relationship Specialty Start Date End Date Catherine Jon MD 505 [facility] [place] [address] PCP - General Family Medicine 09/21/24 [facility] Blaire Alcantara MD [facility] Oncology Center [address] [place] [address] [address] [place] [address] Medical Oncologist Hematology and Oncology 09/21/24 Jung Maxwell MD [facility] Urology Center [address] [place] [address] [place] [address] Consulting Physician Urology 09/21/24 Bryant Ferro DO Consulting Physician Cardiology 09/21/24 [facility] [address] [place] [address] Consulting Physician Nephrology 09/21/24 Denilson Fay MD, PhD [facility] 180 [place] [address] Consulting Physician Ophthalmology 09/21/24 [employer], JUNIOR BOOKKEEPER Agency 25 [place] [address] Personal Care Services 09/21/24 documented as of this encounter
--- OUTSIDE RECORDS SUMMARY | 2025-02-14 10:46 | XMS_ITS ---
Author Organization Estuardo Kenyon III, MD Address [address] [place] [address] Care Team Providers Care Storeroom Clerk Name Role Phone YENI SALGUERO Primary Care Provider [phone] Estuardo Kenyon Unavailable [phone] Allergies Allergen (clinical drug ingredient) Drug/Non Drug [...] Provider Specialty Oncology General Notes Esther Hernandez INBOUND SALES CONSULTANT 02/26 02:14:17 PM EDT > pt dtr Olga called given appt information and ref/progress notes and all testing faxed to Dr Zhou at [phone] Referral Priority Routine Referral Appointment Date 03/17/2024 [...] Problem Status W/U Status Risk Notes Problem 70754246 Cardiomyopathy, unspecified type (I42.9) Active confirmed Problem 69957186 Chronic renal failure, stage 4 (severe) (N18.4) Active confirmed We have mad e the executive recruiter aware of the situation. The fistula in the left upper lung appears to be maturing well. The dialysis catheter and right upper chest wall is intact and seems to function normally. Problem 42616357 Hypertension, unspecified type (I10) Active confirmed Problem [id number] Progressive macular hypomelanosis (L81.6) Active confirmed Problem 933160244 AVF (arteriovenous fistula) (I77.0) Active confirmed Problem 26667267 End-stage renal disease (N18.6) Active confirmed Problem 521867643 Pacemaker (Z95.0) Active confirmed Problem 308408239 History of adenomatous polyp of colon (Z86.010) Active confirmed Problem 476909020 Type 2 diabetes mellitus with diabetic chronic kidney disease (E11.22) Active confirmed Problem 407034108 Chronic kidney disease, stage 5 (N18.5) Active confirmed Problem 353024180 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 Problem 28851926 Type 2 diabetes mellitus with diabetic nephropathy, unspecified whether jail insulin use (E11.21) Active confirmed Diabetes currently seems well controlled. Problem 91112379 Secondary hyperparathyroid ism of renal origin (N25.81) Active confirmed She is in end-stage renal disease. Problem 941234884 Malignant neoplasm of urinary bladder, unspecified site [...] Date Provider Diagnosis Estuardo Kenyon III, MD [address] [place] [address] DR [place], [place] [address] 03/16/2024 Estuardo Kenyon Chronic renal failur e, stage 4 (severe) N18.4 ; Malignant neoplasm of urinary bladder, unspecified site C67.9 ; Type 2 diabetes mellitus with diabetic nephropathy, unspecified whether jail insulin use E11.21 ; Secondary hyperparathyroidism of [...] (ICD-10 - N18.4) We have made the executive recruiter aware of the situation. The fistula in [...] apoorva itus with diabetic nephropathy, unspecified whether oysterman insulin use (ICD-10 - E11.21) Diabetes currently [...] * Jazmine RILEYDOB: [birth year] (58 yo F)Acc No.[id number]:03/16/2024 Patient:?Jazmine Riley Provider:?Estuardo Kenyon MD :1965???Age:58 Y???Sex:Female D ate:03/16/2024 Address:[address] [place] [address] [place] [id number] Pcp:YENI SALGUERO Subjective: * Chief Complaints: * [...] yet as it is still healing. Her executive recruiter is Dr. Martinez. She receives primary care at the [facility]. A CT scan of the abdomen at the [facility] recently showed a large mass in the [...] referred her to medical oncology at [facility] for further staging and definitive treatment. ?Questions?Have [...] - N18.4 (Primary), We have made the executive recruiter aware of the situation. The fistula in [...] diabetes mellitus with diabetic nephropathy, unspecified whether jail insulin use - E11.21, Diabetes currently seems [...] ?Reason:urothelial cancer evaluate and treat * Procedure Codes:?47704 TRANS CARE MGMT 7 DAY DISCH * [...] Kenyon MD Date:?02/26 Generated for Maddy car/Faxing/eTransmitting on:?02/14/2025 10:46 AM EDT History and Physical Notes * [...] days?: No Have you travelled internationally in [facility] last 10 days?: No Have you [...] Referring Provider Referred Provider Not es 03/16/2024 Estuardo Kenyon RENUKA urothelial c ancer evaluate and treat
--- OUTSIDE RECORDS SUMMARY | 2025-02-14 10:46 | XMS_ITS | Encounter Summary ---
Author Organization [employer] Address [address] [facility] 7t [place] [address] Care Team Providers Care Oracle Database Architect Name Role Phone Catherine Jon MD Primary Care Provider [phone] Reason for Visit * Reason Onset Date Comments Call Back Request 11/23/2024 Encounter Details Date Type Department Care Team ([facility] Contact Info) Description 11/23/2024 Telephone [facility] MEDICINE 230 [place] [address] Catherine Jon MD [address] [place], [place] [phone] Call Back Request Social History Tobacco Use [...] from pt requesting a call back from [employer]. Contact pt at [phone] documented in this encounter Plan of Treatment Not on file documented as of this encounter Visit Diagnoses Not on filedocumented in this encounter Care Teams Oracle Database Architect Relationship Specialty Start Date End Date Catherine Jon MD 505 [place] [address] PCP - General Family Medicine 09/21/24 [facility] Blaire Alcantara MD [facility] Oncology Center [address] [place] [address] [address] [place] [address] Medical Oncologist Hematology and Oncology 09/21/24 Jung Maxwell MD [facility] Urology Center [address] [place] [address] Consulting Physician Urology 09/21/24 Bryant Ferro DO Consulting Physician Cardiology 09/21/24 [facility] [address] [place] [address] Consulting Physician Nephrology 09/21/24 Denilson Fay MD, PhD [facility] 180 [place] [address] Consulting Physician Ophthalmology 09/21/24 [employer], MANAGER CASH Agency 25 [place] [address] Personal Care Services 09/21/24 documented as of this encounter
--- OUTSIDE RECORDS SUMMARY | 2025-02-14 10:46 | XMS_ITS | Encounter Summary ---
Author Organization [employer] Address [address] [facility] 7t [place] [address] Care Team Providers Care Physician Office Nurse Name Role Phone Catherine Jon MD Primary Care Provider [phone] Reason for Visit * Reason Comments Med Refill Encounter Details Date Type Department Care Team ([facility] st Contact Info) Description 11/08/2024 Refill [facility] MEDICINE 230 [place], [place] [phone] Anne Talamantes DO 230 [place], [place] [phone] Social History Tobacco Use Types Packs/Day Years [...] on filedocumented in this encounter Care Teams Physician Office Nurse Relationship Specialty Start Date End Date Catherine Jon MD 505 [place] [address] PCP - General Family Medicine 09/21/24 [facility] 07/26/24 Blaire Alcantara MD [facility] On[facility] Center [address] [facility] [address] 1 [place] [address] Medical Oncologist Hematology and Oncology 09/21/24 Jung Maxwell MD [facility] Center [address] [place] [address] Consulting Physician Urology 09/21/24 Bryant Ferro DO Consulting Physician Cardiology 09/21/24 [facility] [address] [place] [address] Consulting Physician Nephrology 09/21/24 Denilson Fay MD, PhD [facility] 180 [place] [address] Consulting Physician Ophthalmology 09/21/24 [employer], TOWNSHIP SUPERVISOR Agency 25 [place] [address] Personal Care Services 09/21/24 documented as of this encounter
--- OUTSIDE RECORDS SUMMARY | 2025-02-14 10:46 | XMS_ITS | Patient Health Record ---
Author Organization Estuardo Kenyon III, MD Address [address] [place] [address] Care Team Providers Care Diagnostics Tech Name Role Phone YENI SALGUERO Primary Care Provider Estuardo Kenyon [phone] Allergies Allergen (clinical drug ingredient) Drug/Non Drug Allergy documented on EMR Reaction Allergy Type Onset Date Status No Known Drug Allergy Unknown Drug Allergy Active Reason For Referral Reason Consult and Treat Diagnosis 1 End-stage renal dise ase (N18.6) Diagnosis 2 Chronic kidney disea se, stage 5 (N18.5) Referral Organization [facility] nter Referring Provider First Name YENI Referring Provider Last Name NOEMY Referring Provider Speciality Family Med icine Referred Organization Estuardo Kenyon III, MD Referred Provider Estuardo Kenyon Referred Address [address],[place], [place],[address], Referred Provider Specialty Oncology Referral Priority Routine Reason urothelial cancer ev aluate and treat Diagnosis 1 Malignant neoplasm o f urinary bladder, unspecified site (C67.9) Referral Organization Estuardo Kenyon III, MD Referring Provider First Name Estuardo Referring Provider Last Name Chantale Referring Provider Speciality Internal M edicine Referred Provider HI ZHOU Referred Provider Specialty Oncology General Notes Mary,Esther CRISIS CLINICIAN 02/26 02:14:17 PM EDT > pt dtr Olga called given appt information and ref/progress notes and all testing faxed to Dr Zhou at [phone] Referral Priority Routine Referral Appointment Date 03/17/2024 [...] Problem Status W/U Status Risk Notes Problem 509236660 Anemia in chronic kidney disease (D63.1) Active confirmed Her blood pressure is currently 139/69 and no change in her regimen as needed. Problem 249499233 Type 2 diabetes mellitus with diabetic chronic kidney disease (E11.22) Active confirmed Problem 143734036 Chronic kidney disease, stage 5 (N18.5) Active confirmed Problem 08795080 Secondary hyperparathyroid ism of renal origin (N25.81) Active confirmed She is in end-stage renal disease. Problem 473407741 terminal manager (current) use of insulin (Z79.4) Active confirmed Problem 692405647 Pacemaker (Z95.0) Active confirmed Problem 468701362 History of adenomatous polyp of colon (Z86.010) Active confirmed Problem 48261085 Hypertension, unspecified type (I10) Active confirmed Problem 81775157 Chronic renal failure, stage 4 (severe) (N18.4) Active confirmed We have mad e the escrow manager aware of the situation. The fistula in the left upper lung appears to be maturing well. The dialysis catheter and right upper chest wall is intact and seems to function normally. Problem 641991166 Malignant neoplasm of urinary bladder, unspecified site (C67.9) Active confirmed The tumor appears to be widespread. We will need to review the images with the radiologist to clarify the nature of the mass in or I can tellnear the right kidney. Problem 63917617 Cardiomyopathy, unspecified type (I42.9) Active confirmed Problem [id number] Progressive macular hypomelanosis (L81.6) Active confirmed Problem 456264029 AVF (arteriovenous fistula) (I77.0) Active confirmed Problem 86904293 End-stage renal disease (N18.6) Active confirmed Problem 49320248 Type 2 diabetes mellitus with diabetic nephropathy, unspecified whether terminal clerk insulin use (E11.21) Active confirmed Diabetes currently seems well controlled. Vital Signs Heart Rate 91 /min 03/16/2024 Temperature 98.1 degrees Fahrenheit 03/16/2024 Blood pressure diastolic 69 mm Hg 03/16/2024 Height 5' 1 in 03/16/2024 Blood pressure systolic 139 mm Hg 03/16/2024 Weight 160 lbs 03/16/2024 BMI 30.23 kg/m2 03/16/2024 Encounters Encounter Location Date Provider Diagnosis Estuardo Kenyon III, MD [address] [place] [address] [place] [address] 03/16/2024 Estuardo Kenyon Chronic renal failur e, stage 4 (severe) N18.4 ; Malignant neoplasm of urinary bladder, unspecified site C67.9 ; Type 2 diabetes mellitus with diabetic nephropathy, unspecified whether terminal clerk insulin use E11.21 ; Secondary hyperparathyroidism of [...] (ICD-10 - N18.4) We have made the escrow manager aware of the situation. The fistula [...] itus with diabetic nephropathy, unspecified whether terminal clerk insulin use (ICD-10 - E11.21) Diabetes currently [...] Coverage End Date [place] [facility] [address] [place] [id number] Jazmine Max Self - patient is the insured
--- OUTSIDE RECORDS SUMMARY | 2025-02-14 10:46 | XMS_ITS | Encounter Summary ---
Author Organization [employer] Address [address] [facility] 7t [place] [address] Care Team Providers Care It Security Administrator Name Role Phone Catherine Jon MD Primary Care Provider [phone] Encounter Details Date Type Department Care Team ([facility] st Contact Info) Description 09/30/2022 Orders Only [facility] CHC MED & PEDS [address] [place] [address] Anne Gama LPN Social History Tobacco Use [...] on filedocumented in this encounter Care Teams It Security Administrator Relationship Specialty Start Date End Date Catherine Jon MD [address] [facility] [place] [address] PCP - General Family Medicine [facility] Blaire Alcantara MD [facility] Oncology Center [address] [place] [address] [address] [place] [address] Medical Oncologist Hematology and Oncology 09/21/24 Jung Maxwell MD [facility] Urology Center [address] [place] [address] [place] [address] Consulting Physician Urology 09/21/24 Bryant Ferro DO Consulting Physician Cardiology 09/21/24 [facility] [address] [place] [address] Consulting Physician Nephrology 09/21/24 Denilson Fay MD, PhD [facility] [address] [place] [address] Consulting Physician Ophthalmology 09/21/24 [employer], WORK COUNSELOR Agency [address] [place] [address] Personal Care Services 09/21/24 documented as of this encounter
--- OUTSIDE RECORDS SUMMARY | 2025-02-14 10:46 | XMS_ITS | Clinical Summary ---
Author Organization [employer] Address [address] [place] [address] 7t [place] [address] Care Team Providers Care Purchasing Manager/Sales Name Role Phone Catherine Jon MD Primary Care Provider [phone] Allergies No known active allergies Medications Trulicity 1.5 MG/0.5ML solution pen-injectorInd ications:Type 2 diabetes mellitus with other specified complication, with long-term current use of insulin ([facility]) INJECT ONE PEN (=1.5MG) SUBCUTANEOUSLY ONCE A WEEK DIRECTED 2 mL 023 Active Pentips 32G X 4 MM misc USE DIRECTED WITH lantus AND humalog 100 each 024 Active Blood Glucose Monitoring Suppl (FreeStyle [place] Lite) w/Device kit Use to test blood sugar 3 times daily 1 kit 024 Active TRUEplus Lancets 33G miscIndications :Diabetic nephropathy associated with type 2 diabetes mellitus ([facility]) TEST BLOOD SUGAR SIX TIMES DAILY 200 each 11 024 Active FREESTYLE LITE test stripIndication s:Type 2 diabetes mellitus with diabetic nephropathy, with long-term current use of insulin ([facility]) TEST BLOOD SUGAR SIX TIMES [...] Continuous Glucose Sensor (FreeStyle Gary 2 Sensor) [facility] Apply 1 sensor every 14 days 2 each Active Continuous Glucose Mold Sander (FreeStyle Gary 2 [place]) device Scan sensor every 8 hours 1 each Active hydrALAZINE (Apresoline) 10 MG tabletIndicatio ns:Essential hypertension Take 1 tablet (10 mg) by mouth 2 times daily. 60 tablet 025 2025 Active Alcohol Swabs (Alcohol Prep) 70 % padsIndications :Type 2 diabetes mellitus with other specified complication, unspecified whether longterm insulin use ([facility]) Test blood glucose QID 100 each Active [...] 2 diabetes mellitus with hyperglycemia, unspecified whether longterm insulin use ([facility]) INJECT 8-18 UNITS SUBCUTANEOUSLY THREE [...] diabetes mellitus with diabetic neuropathy, unspecified whether longwall headgate operator insulin use (CMS/HCC) TAKE 1 TABLET BY MOUTH AT BEDTIME 30 tablet 1 025 Active Eliquis 2.5 MG tablet TAKE 1 TABLET BY MOUTH TWICE DAILY IN THE MORNING AND IN THE EVENING 60 tablet 1 025 2024 Discontinued amitriptyline (Elavil) 50 MG tabletIndicatio ns:Type 2 diabetes mellitus with diabetic neuropathy, unspecified whether longterm insulin use (CMS/HCC) TAKE 1 TABLET BY [...] BS numbers. Advised to follow up with [employer] to restart Farxiga. Ordering lab work for further evaluation. Advised to bring paperwork for Advanced Directives next visit. Follow up in 4 months. Encounters Date Type Department Care Team Description 02/07/2025 Orders Only GENERIC EXTERNAL DATA DEPARTMENT Provider, Generic External Data 02/02/2025 Refill [facility] MEDICINE [address] [place] [address] Amanda Rider MD Type 2 diabetes mellitus with diabetic neuropathy, unspecified whether longterm insulin use ([facility]) 02/01/2025 Orders Only [facility] External Provider, [facility] 01/28/2025 Refill [facility]INE [address] [place] [address] Amanda Rider MD 12/10/2024 Refill [facility]IC[facility] [address] [place] [address] Anne Talaamntes DO 12/08/2024 Population Health Risk Score [facility] (C3) Department [address] [address] Provider, Population Health Generic 12/07/2024 Refill [facility] MEDICINE [address] [place] [address] Jonnathan Navarrete MD Type 2 diabetes mellitus with diabetic neuropathy, unspecified whether longterm insulin use ([facility]) 12/07/2024 Refill [facility] MEDICINE [address] [place] [address] Catherine Jon MD Type 2 diabetes mellitus with diabetic neuropathy, unspecified whether longwall headgate operator insulin use ([facility]) 11/26/2024 Refill [facility] CHC MED & PEDS [address] [place] [address] Anne Talamantes DO Type 2 diabetes mellitus with hyperglycemia, unspecified whether longterm insulin use ([facility]) 11/23/2024 Telephone [facility] MEDICINE [address] [place] [address] Catherine Jon MD Call Back Request from Last 3 Months Immunizations Immunization Administration [...] FOBT 1965 HIV Screening 1965 Sigmoidoscopy 1965 Disability Screening 1965 Derm Melanoma Skin Check 03/07/1966 Diabetes: [...] nephropathy, with long-term current use of insulin ([facility]) LIPID PANEL, STANDARD Routine 03/03/2024 [...] Whole Blood 170(H) 60 - 115 mg/dL [facility] Comment:METER #: [id number] Testing performed in the Endocrinology Department [address] , [address], [facility]. 02/07/2025 11:3 2 AM EDT 02/07/2025 11:37 AM EDT us Generic External Data Provider LAB BLOOD ORDERAB LES Final Result [facility] [address] [place] [address] [phone] * XR Chest 2 Views (02/01/2025 12:22 PM EDT) Anatomical Region Laterality Modality Chest Radiographic Diana ging 02/01/2025 12:2 2 PM EDT Narrative 02/01/2025 12:42 PM EDT ? [facility] ?[address] ?[place] [address] ?XRay Report ? Signed ? Patient: Max,Jazmine ?MR#: [id number] ?? [id number] ? : 1965 ?Acct:[id number] ? Age/Sex: 59 / F ?ADM Date: 02/01/25 ? Loc: HO.XRAY ? Attending Dr: JEFF Johnson DNP ? Ordering Physician: Emily Weaver DNP, FNP-BC ?? Date of Service: 02/01/25 ?? Procedure(s): XR chest 2V ?? Accession Number(s): [id number] ? cc: Emily Weaver DNP, FNP-BC; Catherine [...] DD/ 1222 ? TD/TT: 02/01/25 1235 ? Independent Crop Consultant: ? Procedure Note Donotuseinterpreter, Image - 02/01/[address] [address] XRay Report Signed Patient: Jazmine MaxMR#: [id number] : 1965Acct:[id number] Age/Sex: 59 / FADM Date: 02/01/25 Loc: [facility] Attending Dr: JEFF Johnson DNP Ordering Physician: Emily Weaver DNP, FNP-BC Date of Service: 02/01/25 Procedure(s): XR chest 2V Accession Number(s): [id number] cc: Emily Weaver DNP, FNP-BC; Catherine Jon [...] 02/01/25 1240 DD/ 1222 TD/TT: 02/01/25 1235 Independent Crop Consultant: [facility] External Provider IMG XR PROCEDURES Edited Result - Final * (ABNORMAL) POCT HGB A1C (09/21/2024 11:15 AM EST) Hemoglobin A1C 6.9(A) 4.0 - 6.0 % QC Media Lot # [id number] Lot# Expiration Date [id number] Blood 09/21/2024 11:1 5 AM EST Catherine Jno MD POINT OF CARE TEST ENTER/EDIT ORDERABLES Final Result * (ABNORMAL) Lipid Panel, Standard (03/03/2024 1:43 PM EDT) Triglycerides 201(H) <150 mg/dL [facility] Comment:Desirable Triglyceri de: less than 150 mg/dLBorderline High Triglyceride 150-199 mg/dLHigh Triglyceride: 200-499 mg/dLVery High Triglyceride: greater than or equal to 5OO mg/dL Cholesterol 146 <200 mg/dL [facility] Comment:Desirable Cholestero l: less than 200 mg/dLBorderline High Cholesterol: 200-239 mg/dLHigh Cholesterol: greater than 239 mg/dL LDL Cholesterol Calculated 69 <100 mg/dL [facility] Comment:Desirable LDL: less than 100 mg/dLNear Optimal/Above Optimal LDL: 110- 129 mg/dLBorderline High LDL: 130-159 mg/dLHigh LDL: 160-189 mg/dLVery High LDL: greater than or equal to 190 mg/dL HDL Cholesterol 37(L) >40 mg/dL [facility] Comment:Desirable HDL: great er than 40 mg/dL Note: This HDL assay may give artificially low results in patients with liver disease. Blood Venous blood specimen / Unknown 03/03/2024 1:43 PM EDT 03/03/2024 3:58 PM EDT Aby Vazquez MD LAB BLOOD ORDERABLES Final Resul t [facility] [address] [place] [address] [phone] * BI Mammogram Screening Tomosynthesis Bilateral (02/25/2024 3:03 PM EDT) Anatomical Region Laterality Modality Breast Bilateral Mammography 02/25/2024 3:03 PM EDT Narrative 03/21/2024 4:41 PM EDT ? [facility] ? [address] ?[place] [address] ? Mammography Report ? Signed ? Patient: Max,Jazmine ?MR#: [id number] ?? [id number] ? : 1965 ?Acct:[id number] ? Age/Sex: 58 / F ?ADM Date: 02/25/24 ? Loc: HO.MAMMO ? Attending Dr: Anne Talamantes DO ? Ordering Physician: Anne Talamantes DO ?Results: 1N ?? egative ? Date of Service: 02/25/24 ?Follow Up: 1 Year From Orig ?? inal Mammogram ? Procedure(s): MM tomosynthesis screening BI ?? Accession Number(s): [id number] ? cc: VinitaAnne A DO ? EXAMINATION: ?? MM SCREENING DIGITAL [...] 1637 ? DD/ 1503 ? TD/TT: ? Independent Crop Consultant: ? Procedure Note Donbree, Image - 03/21/2024 [facility] [address] [place] [address] Mammography Report Signed Patient: Jazmine MaxMR#: [id number] : 1965Acct:[id number] Age/Sex: 58 / FADM Date: 02/25/24 Loc: MAMMO Attending Dr: Anne Talamantes DO Ordering Physician: Anne Talamantesults: 1N egative Date of Service: 02/25/24Follow Up: 1 Year From Orig inal Mammogram Procedure(s): MM tomosynthesis screening BI Accession Number(s): [id number] cc: Anne Talamantes DO EXAMINATION: MM SCREENING [...] in OV> 03/21/24 1637 DD/ 1503 TD/TT: Independent Crop Consultant: Anne Talamantes DO [facility] BI PROCEDURES Final Resu lt * HPV mRNA E6/E7 REFLEX TO HPV 16, 18/45 (11/22/2020 12:00 AM EST) HPV nRNA E6/E7 Not Detected Not Detected [facility] Comment: Methodology: Fresh Work Wrapper Layer-Mediated Amplification This assay detects E6/E7 viral messenger RNA (mRNA) from 14 high-risk HPV types (16,18,31,33,35,39,45,51,52,56,58,59,66,68). ? The analytical performance characteristics of this assay have been determined by [facility]. The modifications have not been cleared or approved by the FDA. This assay has been validated pursuant to the CLIA regulations and is used for clinical purposes. ?? For additional information, please refer to http://education.[employer]/YOS234c2 (This link if provided for information/ educational purposes only.) 11/22/2020 Anne Talamantes DO LAB CYTOLOGY ORDERABLES Jolanta wall Result [facility] [address] [place] [address], * Hm Colonoscopy (03/08/2019 11:49 AM EDT) Historical Provider HEALTH MAINTENANCE Final Result from Last 3 Months or Most Recently Relevant to Health Maintenance Insurance KASSANDRA [address] [facility] C[facility] * Guarantor: Jazmine Max Account Type Relation to Patient Date of Phone Billing Address Personal/[place] [address] * Guarantor: Jazmine Max Account Type Relation to Patient Date of Phone Billing Address Personal/[place] [address] * Guarantor: Jazmine Max Account Type Relation to Patient Date of Phone Billing Address Personal/[place] [address] Care Teams Purchasing Manager/Sales Relationship Specialty Start Date End Date Catherine Jon MD [address] [place] [address] [place] [address] PCP - General Family Medicine 09/21/24 [facility] 07/26/24 Blaire Alcantara MD [facility] Oncology Center [address] [facility] [address] [place] [address] Medical Oncologist Hematology and Oncology 09/21/24 Jung Maxwell MD [facility] Urology Center [address] [place] [address] [place] [address] Consulting Physician Urology 09/21/24 Bryant Ferro DO Consulting Physician Cardiology 09/21/24 [facility] [address] [place] [address] Consulting Physician Nephrology 09/21/24 Denilson Fay MD, PhD [facility] [address] [place] [address] Consulting Physician Ophthalmology 09/21/24 [employer], RERECORDING MIXER Agency [address] [place] [address] Personal Care Services 09/21/24
--- OUTSIDE RECORDS SUMMARY | 2025-02-14 10:46 | XMS_ITS | Encounter Summary ---
Author Organization [email or web address] Address [address] [facility] 7t [place] [address] Care Team Providers Care Financial Center Manager Name Role Phone Catherine Jon MD Primary Care Provider [phone] Reason for Visit * Reason Onset Date Comments Nurse Triage 11/07/2024 Encounter Details Date Type Department Care Team ([facility] st Contact Info) Description 11/07/2024 Telephone [facility] MEDICINE [address] [place] [address] Catherine Jon MD [address] [place], [place] [phone] Nurse Triage Social History Tobacco Use Types [...] and is very itchy Duration 1x week Slovenian speaking documented in this encounter Plan of Treatment Not on file documented as of this encounter Visit Diagnoses Not on filedocumented in this encounter Care Teams Financial Center Manager Relationship Specialty Start Date End Date Catherine Jon MD [address] [place] [address] PCP - General Family Medicine 09/21/24 [facility] 07/26/24 Blaire Alcantara MD [facility] Oncology Center [address] [place] [address] [address] [place] [address] Medical Oncologist Hematology and Oncology 09/21/24 Jung Maxwell MD [facility]rology Center [address] [place] [address] [address] Consulting Physician Urology 09/21/24 Bryant Ferro DO Consulting Physician Cardiology 09/21/24 [facility] [address] [place] [address] Consulting Physician Nephrology 09/21/24 Denilson Fay MD, PhD [facility] [address] [place] [address] Consulting Physician Ophthalmology 09/21/24 [employer], SALES ORDER PROCESSOR Agency [address] [place] [address] Personal Care Services 09/21/24 documented as of this encounter
--- OUTSIDE RECORDS SUMMARY | 2025-02-14 10:46 | XMS_ITS | Clinical Summary ---
Author Organization [facility] Address [address] [place] [address] Phone Care Team Providers Care Network Account Manager Name Role Phone Unavailable Primary Care Provider [...]
--- OUTSIDE RECORDS SUMMARY | 2025-02-14 10:46 | XMS_ITS | Encounter Summary ---
Author Organization [employer] Address [address] [facility] 7t [place] [address] Care Team Providers Care Short Filler Bunch Machine Operator Name Role Phone Catherine Jon MD Primary Care Provider [phone] Reason for Visit * Reason Comments Med Refill Encounter Details Date Type Department Care Team ([facility] st Contact Info) Description 09/18/2024 Refill [facility] MEDICINE [address] [place], [place] [phone] Anne Talamantes DO [address] [place], [place] [phone] Social History Tobacco Use Types Packs/Day Years [...] on filedocumented in this encounter Care Teams Short Filler Bunch Machine Operator Relationship Specialty Start Date End Date Catherine Jon MD [address] [place] [address] PCP - General Family Medicine 09/21/24 [facility] 07/26/24 Blaire Alcantara MD [facility] Oncology Center [address] [facility] [address] [place] [address] Medical Oncologist Hematology and Oncology 09/21/24 Jung Maxewll MD [facility] Urology Center [address] [place] [address] Consulting Physician Urology 09/21/24 Bryant Ferro DO Consulting Physician Cardiology 09/21/24 [facility] [address] [place] [address] Consulting Physician Nephrology 09/21/24 Denilson Fay MD, PhD [facility] [place] [facility] [address] [place] [address] Consulting Physician Ophthalmology 09/21/24 [employer], WEIGHMASTER LEAD Agency [address] [place] [address] Personal Care Services 09/21/24 documented as of this encounter
--- OUTSIDE RECORDS SUMMARY | 2025-02-14 10:47 | XMS_ITS | Encounter Summary ---
Author Organization [employer] Address [address] [facility] 7t [place] [address] Care Team Providers Care Clinical Laboratory Technician Name Role Phone Catherine Jon MD Primary Care Provider [phone] Encounter Details Date Type Department Care Team (Late st Contact Info) Description 01/06/2024 Orders Only [facility] MEDICINE [address] [place], [place] [phone] Provider, MD Karoline Social History Tobacco Use [...] filedocumented in this encounter Care Teams Clinical Laboratory Technician Relationship Specialty Start Date End Date Catherine Jon MD [address] [facility] [place] [address] PCP - General Family Medicine 09/21/24 [facility] 07/26/24 Blaire Alcantara MD [facility] Oncology Center [address] [facility] [address] [place] [address] Medical Oncologist Hematology and Oncology 09/21/24 Jung Maxwell MD [facility]rology Center [address] [place] [address] [place] [address] Consulting Physician Urology 09/21/24 Bryant Ferro DO Consulting Physician Cardiology 09/21/24 [facility] [address] [place] [address] Consulting Physician Nephrology 09/21/24 Denilson Fay MD, PhD [facility] [address] [place] [address] Consulting Physician Ophthalmology 09/21/24 [employer], BOILER CONTROL TECHNICIAN Agency [address] [place] [address] Personal Care Services 09/21/24 documented as of this encounter
--- OUTSIDE RECORDS SUMMARY | 2025-02-14 10:47 | XMS_ITS | Clinical Summary ---
Author Organization [facility] Address [address] [place] [address] Phone Care Team Providers Care Pump Operator Name Role Phone Anne Talamantes DO [...] 9.2 8.7 - 10.7 mg/dL eGFR Non-Afr Lithuanian 14 Total Bilirubin 0.4 MG/DL Bilirubin Direct 0.1 ALT (SGPT) 13 U/L AST (SGOT) 12 U/L Alkaline Phosphatase 102 U/L Vitamin D, 25-OH, Total 38 ng/mL Hemoglobin A1C 7.6(A) 4.0 - 6.0 Alb/Creat Ratio, Ur 3,229 mg/g Creat Triglycerides 202 Cholesterol, Total 130 HDL 35 mg/dL LDL-Calculated 68 08/10/2022 [facility] Provider LAB BLOOD ORDERABLES Jolanta l Result from Last 3 Months or Most Recently Relevant to Health Maintenance Insurance Medicaid [place] Medicaid [place] Care Teams Pump Operator Relationship Specialty Start Date End Date Anne Talamantes DO [address] [place] [address] PCP - General 10/07/20
--- OUTSIDE RECORDS SUMMARY | 2025-02-14 10:47 | XMS_ITS | Encounter Summary ---
Author Organization [employer] Address [address] [facility] 7t [place] [address] Care Team Providers Care Pharmacy Technician Assistant Name Role Phone Catherine Jon MD Primary Care Provider [phone] Reason for Visit * Reason Onset Date Comments Hospital Follow-up 04/11/2024 Encounter Details Date Type Department Care Team ([facility] st Contact Info) Description 04/11/2024 Telephone [facility] MEDICINE [address] [place], [place] [phone] Anne Talamantes DO [address] [place], [place] [phone] Hospital Follow-up Social History Tobacco Use Types [...] from pt requesting a HDF appt. Hospital: [facility] Date of admission: 04/07 Discharge date: 04/11 Diagnosed: Kidney Failure documented in this encounter Plan of Treatment Not on file documented as of this encounter Visit Diagnoses Not on filedocumented in this encounter Care Teams Pharmacy Technician Assistant Relationship Specialty Start Date End Date Catherine Jon MD [address] [place] [address] PCP - General Family Medicine 09/21/24 [facility] 07/26/24 Blaire Alcantara MD [facility] [address] [place] [address] Medical Oncologist Hematology and Oncology 09/21/24 Jung Maxwell MD [facility] [address] [place] [address] [place] [address] Consulting Physician Urology 09/21/24 Bryant Ferro DO Consulting Physician Cardiology 09/21/24 [facility] [address] [place] [address] Consulting Physician Nephrology 09/21/24 Denilson Fay MD, PhD [facility] [address] [place], [place] [phone] Consulting Physician Ophthalmology 09/21/24 [employer], PLANT SCIENTIST Agency [address] [place] [address] Personal Care Services 09/21/24 documented as of this encounter
== END 2025-02-14 09:31 | disposition home or self-care (01) ==
LOC: HO.CT 09:30
PROVIDERS: PCP Family Medicine; Visit Provider Internal Medicine
DX: C67.9 Malignant neoplasm of bladder, unspecified (principal)
CPT/HCPCS: 71250

== ENCOUNTER → 2025-02-14 09:33 | Outpatient (BNV) | payer MEDICAID, SELFPAY | PROVIDERS: PCP Family Medicine; Visit Provider Nuclear Medicine | DX: I25.84 Coronary atherosclerosis due to calcified coronary lesion (principal) | CPT/HCPCS: 71250 ==

== ENCOUNTER 2025-03-13 11:07 | Outpatient (REF) | payer MEDICAID, SELFPAY ==
--- NOTE | ~2025-03-13 | US_ITS ---
EXAMINATION: US TRIPLEX LOWER EXTREMITY, RIGHT CLINICAL INFORMATION: Right lower extremity pain COMPARISON: None available. TECHNIQUE: Color-flow triplex imaging with spectral analysis and compression Doppler were performed on the right lower extremity. FINDINGS: Respiratory variation, normal compression and augmented flow are noted throughout the right lower extremity. The visualized common femoral vein, superficial femoral vein, profunda femoral vein, popliteal vein and midcalf peroneal and posterior tibial venous segments show no evidence of deep venous thrombosis. There is no Altamirano's cyst. US/US venous duplex LE RT IMPRESSION: No evidence of deep venous thrombosis involving the right lower extremity. Electronically signed by: Moises Bautista MD 03/13/2025 11:57 AM EDT
--- OUTSIDE RECORDS SUMMARY | 2025-03-13 12:44 | XMS_ITS | Encounter Summary ---
Author Organization [employer] Address [address] [facility] 7t [place] [address] Care Team Providers Care Hole Digger Operator Name Role Phone Catherine Jon MD Primary Care Provider [phone] Reason for Visit * Reason Onset Date Comments Change PCP 08/03/2024 Encounter Details Date Type Department Care Team ([facility] st Contact Info) Description 08/03/2024 Telephone [facility] MEDICINE [address] [place], [place] [phone] Anne Talamantes DO [address] [place], [place] [phone] Change PCP Social History Tobacco Use Types [...] from pt stating she has moved to [place] and is requesting to change locations due to convince. If any questions you can contact pt at [phone]. (Wolof Speaker) documented in this encounter Plan of Treatment Not on file documented as of this encounter Visit Diagnoses Not on filedocumented in this encounter Care Teams Hole Digger Operator Relationship Specialty Start Date End Date Catherine Jon MD [address] [place] [address] PCP - General Family Medicine 09/21/24 [facility] 07/26/24 Blaire Alcantara MD [facility] On[facility] Center [address] [place] [address] Medical Oncologist Hematology and Oncology 09/21/24 Jung Maxwell MD [facility] [address] [place] [address] [place] [address] Consulting Physician Urology 09/21/24 Bryant Ferro DO Consulting Physician Cardiology 09/21/24 [facility] [address] [place] [address] Consulting Physician Nephrology 09/21/24 Denilson Fay MD, PhD [facility] [address] [place], [place] [phone] Consulting Physician Ophthalmology 09/21/24 [employer], TELEVISION NEWS ANCHOR Agency [address] [place], [place] [phone] Personal Care Services 09/21/24 documented as of this encounter
== END 2025-03-13 11:08 | disposition home or self-care (01) ==
LOC: HO.US 11:07
PROVIDERS: PCP Family Medicine; Visit Provider Internal Medicine
DX: R60.0 Localized edema (principal); C67.9 Malignant neoplasm of bladder, unspecified
CPT/HCPCS: 93971

== ENCOUNTER → 2025-03-13 11:12 | Outpatient (BNV) | payer MEDICAID, SELFPAY | PROVIDERS: PCP Family Medicine; Visit Provider Radiology Diagnostic Radiology | DX: M79.661 Pain in right lower leg (principal) | CPT/HCPCS: 93971 ==

== ENCOUNTER → 2025-03-27 23:59 | Outpatient (BNV) | payer MEDICAID, SELFPAY | PROVIDERS: PCP Internal Medicine; Visit Provider Internal Medicine Nephrology | DX: N18.6 End stage renal disease (principal) | CPT/HCPCS: 90962 ==

== ENCOUNTER 2025-04-05 09:38 | Outpatient (REF) | payer MEDICAID, SELFPAY ==
--- NOTE | ~2025-04-05 | CT_ITS ---
EXAMINATION: CT HEAD WITHOUT CONTRAST CLINICAL INFORMATION: Sudden onset dizziness and nausea. Metastatic bladder cancer. COMPARISON: March 20, 2024. TECHNIQUE: Contiguous axial imaging was performed from the skull base to vertex without intravenous administration of contrast. This CT examination was performed using dose optimization techniques as appropriate, variously including the following: *Automated exposure control *Adjustment of mA and/or kV according to patient size (this includes techniques or standardized protocols for targeted exams where dose is matched to indication/reason for exam; i.e. extremities or head) *Use of iterative reconstruction technique DLP: 784 mGy-cm FINDINGS: No acute intracranial hemorrhage, mass effect, midline shift, hydrocephalus or herniation. Morgan-white matter differentiation is normal. Posterior cranial fossa contents demonstrated no acute hemorrhage or gross mass effect. Sellar/suprasellar region demonstrated no gross masses. Craniocervical junction demonstrates normal position of the cerebellar tonsils. Calcified plaques in the cavernous supracavernous segments of the ICAs and V4 segments of the vertebral arteries. No air-fluid levels in the paranasal sinuses. Poor pneumatization of the frontal sinuses. Tympanic cavities and mastoid cells are aerated Skin agustin in the superior left frontoparietal soft tissue scalp without gross fluid collection or hematoma. No acute fracture in the bony calvarium... CT/CT head/brain wo IV con IMPRESSION: No acute intracranial hemorrhage or acute brain abnormality by CT. No acute fracture, bony calvarium. Skin agustin, superior left frontoparietal soft tissue scalp. Atherosclerosis disease, intracranial. Electronically signed by: Shelton Levine MD 04/05/2025 10:15 AM EDT
--- OUTSIDE RECORDS SUMMARY | 2025-04-05 10:10 | XMS_ITS | Clinical Summary ---
Author Organization [facility] Address [address] [place] [address] Phone Care Team Providers Care Assistant Spa Manager Name Role Phone Anne Talamantes DO Primary [...] A1C 11/10/2022 022, 10/24/2021, 10/18/2020 Influenza Vaccine (#1) 2025 , 07/28/2021, 07/08/2017, Additional history exists Pneumococcal Vaccine: [...] 9.2 8.7 - 10.7 mg/dL eGFR Non-Afr Bulgarian 14 Total Bilirubin 0.4 MG/DL Bilirubin Direct 0.1 ALT (SGPT) 13 U/L AST (SGOT) 12 U/L Alkaline Phosphatase 102 U/L Vitamin D, 25-OH, Total 38 ng/mL Hemoglobin A1C 7.6(A) 4.0 - 6.0 Alb/Creat Ratio, Ur 3,229 mg/g Creat Triglycerides 202 Cholesterol, Total 130 HDL 35 mg/dL LDL-Calculated 68 08/10/2022 [facility] Provider LAB BLOOD ORDERABLES Jolanta l Result from Last 3 Months or Most Recently Relevant to Health Maintenance Insurance Medicaid [place] Medicaid [place] Care Teams Assistant Spa Manager Relationship Specialty Start Date End Date Anne Talamantes DO [address] [place] [address] PCP - General 10/07/20
--- OUTSIDE RECORDS SUMMARY | 2025-04-05 10:10 | XMS_ITS | Encounter Summary ---
Author Organization [employer] Address [address] [facility] 7t [place] [address] Care Team Providers Care Copy Machine Operator Name Role Phone Catherine Jon MD Primary Care Provider [phone] Reason for Visit * Reason Onset Date Comments Change PCP 08/03/2024 Encounter Details Date Type Department Care Team ([facility] st Contact Info) Description 08/03/2024 Telephone [facility] MEDICINE [address] [place], [place] [phone] Anne Talamantes DO [address] [place], [place] [phone] Change PCP Social History Tobacco Use Types [...] Miscellaneous Notes * Telephone Encounter - Sam Zeus - 08/03/2024 1:04 PM EST Tc from pt stating she has moved to [place] and is requesting to change locations due to convince. If any questions you can contact pt at [phone]. (Mohawk Speaker) documented in this encounter Plan of Treatment Upcoming Encounters Date Type Department Care Team ([facility] st Contact Info) Description 04/05/2025 3:00 PM EDT Clinical Support [facility] [address] [place] [address] 04/30/2025 1:45 PM EDT Office Visit [facility] [address] [place] [address] Catherine Jon MD [address] [place] [address] documented as of this encounter Visit Diagnoses Not on filedocumented in this encounter Care Teams Copy Machine Operator Relationship Specialty Start Date End Date Catherine Jon MD [address] [place] [address] PCP - General Family Medicine 09/21/24 [facility] 07/26/24 Blaire Alcantara MD [facility] [address] [place] [address] [address] [place] [address] Medical Oncologist Hematology and Oncology 09/21/24 Jung Maxwell MD [facility] [address] [place] [address] [place] [address] Consulting Physician Urology 09/21/24 Bryant Frero DO Consulting Physician Cardiology 09/21/24 [facility] [address] [place] [address] Consulting Physician Nephrology 09/21/24 Denilson Fay MD, PhD [facility] [address] [place] [address] Consulting Physician Ophthalmology 09/21/24 [employer], AGRICULTURAL PILOT Agency [address] [place] [address] Personal Care Services 09/21/24 documented as of this encounter
--- OUTSIDE RECORDS SUMMARY | 2025-04-05 10:10 | XMS_ITS | Patient Health Record ---
Author Organization Estuardo Kenyon III, MD Address [address] [address] Care Team Providers Care Outreach Specialist Name Role Phone YENI SALGUERO Primary Care Provider Estuardo Kenyon [phone] Allergies Allergen (clinical drug ingredient) Drug/Non Drug Allergy documented on EMR Reaction Allergy Type Onset Date Status No Known Drug Allergy Unknown Drug Allergy Active Reason For Referral No Information Medications Medication SIG (Take, Route, Frequency, Duration) [...] Problem Status W/U Status Risk Notes Problem 038510703 Anemia in chronic kidney disease (D63.1) Active confirmed Her blood pressure is currently 139/69 and no change in her regimen as needed. 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 The fistula in the left upper lung appears to be maturing well. The dialysis catheter and right upper chest wall is intact and seems to function normally. Problem 960218487 Malignant neoplasm of urinary bladder, unspecified site (C67.9) Active confirmed The tumor appears to be widespread. We will need to review the images with the radiologist to clarify the nature of the mass in or I can tellnear the right kidney. Problem 57224539 Cardiomyopathy, unspecified type (I42.9) Active confirmed Problem 452735145732843607 Progressive macular hypomelanosis (L81.6) Active confirmed Problem 107353720 AVF (arteriovenous fistula) (I77.0) Active confirmed Problem 05747937 End-stage renal disease (N18.6) Active confirmed Problem 13914317 Type 2 diabetes mellitus with diabetic nephropathy, unspecified whether roasterman insulin use (E11.21) Active confirmed Diabetes currently seems well controlled. Plan Of Treatment No Information Insurance Providers Payer Name Payer Address Payer Phone Subscriber Number Group Number Insured Name Patient Relationship to Insured Coverage Start Date Coverage End Date [place] [address] KASSANDRA GONZALEZ [id number] Jazmine Max Self - patient is the insured
--- OUTSIDE RECORDS SUMMARY | 2025-04-05 10:10 | XMS_ITS | Clinical Summary ---
Author Organization [facility] Address [address] [place] [address] Phone Care Team Providers Care Molder Helper Name Role Phone Unavailable Primary Care Provider [...] Control Test (HGBA1C) 03/22/2025 09/21/2024 Influenza Vaccine (#1) 2025 , 07/28/2021, 07/08/2017, Additional history exists Diabetes: Annual [...]
== END 2025-04-05 09:39 | disposition home or self-care (01) ==
LOC: HO.CT 09:38
PROVIDERS: PCP Family Medicine; Visit Provider Internal Medicine
DX: C67.9 Malignant neoplasm of bladder, unspecified (principal); R42 Dizziness and giddiness
CPT/HCPCS: 70450

== ENCOUNTER → 2025-04-05 09:39 | Outpatient (BNV) | payer MEDICAID, SELFPAY | PROVIDERS: PCP Family Medicine; Visit Provider Radiology Diagnostic Radiology | DX: I67.2 Cerebral atherosclerosis (principal) | CPT/HCPCS: 70450 ==

== ENCOUNTER 2025-04-19 11:22 | Outpatient (REF) | payer MEDICAID, SELFPAY ==
--- OUTSIDE RECORDS SUMMARY | 2025-04-19 12:20 | XMS_ITS | Patient Health Record ---
Author Organization Estuardo Kenyon III, MD Address [address] [place] [address] Care Team Providers Care Book Repairer Name Role Phone YENI SALGUERO Primary Care Provider Estuardo Kenyon [phone] Allergies Allergen (clinical drug ingredient) Drug/Non Drug [...] Problem Status W/U Status Risk Notes Problem 895608115 Anemia in chronic kidney disease (D63.1) Active confirmed Her blood pressure is currently 139/69 and no change in her regimen as needed. 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 The fistula in the left upper lung appears to be maturing well. The dialysis catheter and right upper chest wall is intact and seems to function normally. Problem 768435945 Malignant neoplasm of urinary bladder, unspecified site (C67.9) Active confirmed The tumor appears to be widespread. We will need to review the images with the radiologist to clarify the nature of the mass in or I can tellnear the right kidney. Problem 58935246 Cardiomyopathy, unspecified type (I42.9) Active confirmed Problem 627036426762528371 Progressive macular hypomelanosis (L81.6) Active confirmed Problem 090512399 AVF (arteriovenous fistula) (I77.0) Active confirmed Problem 85964317 End-stage renal disease (N18.6) Active confirmed Problem 99696534 Type 2 diabetes mellitus with diabetic nephropathy, unspecified whether veneer cutter insulin use (E11.21) Active confirmed Diabetes currently seems well controlled. Plan Of Treatment No Information Insurance Providers Payer Name Payer Address Payer Phone Subscriber Number Group Number Insured Name Patient Relationship to Insured Coverage Start Date Coverage End Date [place] [address] KASSANDRA GONZALEZ [id number] Jazmine Max Self - patient is the insured
--- OUTSIDE RECORDS SUMMARY | 2025-04-19 12:20 | XMS_ITS | Encounter Summary ---
Author Organization [employer] Address [address] [facility] 7t [place] [address] Care Team Providers Care Textile Coating Machine Operator Name Role Phone Catherine Jon MD Primary Care Provider [phone] Reason for Visit * Reason Onset Date Comments Change PCP 08/03/2024 Encounter Details Date Type Department Care Team ([facility] st Contact Info) Description 08/03/2024 Telephone [facility] MEDICINE [address] [place], [place] [phone] Anne Talamantes DO [address] [place], [place] [phone] Change PCP Social History Tobacco Use Types [...] from pt stating she has moved to [place] and is requesting to change locations due to convince. If any questions you can contact pt at [phone]. (Turkish Speaker) documented in this encounter Plan of Treatment Upcoming Encounters Date Type Department Care Team ([facility] st Contact Info) Description 04/30/2025 1:45 PM EDT Office Visit [facility] [address] [place] [address] Catherine Jon MD [address] [place] [address] documented as of this encounter Visit Diagnoses Not on filedocumented in this encounter Care Teams Textile Coating Machine Operator Relationship Specialty Start Date End Date Catherine Jon MD [address] [place] [address] PCP - General Family Medicine 09/21[facility]24 [facility] Blaire Alcantara MD [facility] Oncology Center [address] [place] [address] Medical Oncologist Hematology and Oncology 09/21/24 Jung Maxwell MD [facility]rology Center [address] [place] [address] [place] [address] Consulting Physician Urology 09/21/24 Bryant Ferro DO Consulting Physician Cardiology 09/21/24 [facility] [address] [place] [phone] Consulting Physician Nephrology 09/21/24 Denilson Fay MD, PhD [facility] [facility] [address] [phone] Consulting Physician Ophthalmology 09/21/24 [employer], SURVEY PROJECT MANAGER Agency [address] [place] [address] Personal Care Services 09/21/24 documented as of this encounter
--- OUTSIDE RECORDS SUMMARY | 2025-04-19 12:20 | XMS_ITS | Clinical Summary ---
Author Organization [facility] Address [address] [place] [address] Phone Care Team Providers Care Oil Speculator Name Role Phone Anne Talamantes DO Primary [...] 9.2 8.7 - 10.7 mg/dL eGFR Non-Afr Turkmen 14 Total Bilirubin 0.4 MG/DL Bilirubin Direct 0.1 ALT (SGPT) 13 U/L AST (SGOT) 12 U/L Alkaline Phosphatase 102 U/L Vitamin D, 25-OH, Total 38 ng/mL Hemoglobin A1C 7.6(A) 4.0 - 6.0 Alb/Creat Ratio, Ur 3,229 mg/g Creat Triglycerides 202 Cholesterol, Total 130 HDL 35 mg/dL LDL-Calculated 68 08/10/2022 [facility] Provider LAB BLOOD ORDERABLES Jolanta l Result from Last 3 Months or Most Recently Relevant to Health Maintenance Insurance Medicaid [place] Medicaid [place] Care Teams Oil Speculator Relationship Specialty Start Date End Date Anne Talamantes DO [address] [place] [address] PCP - General 10/07/20
--- OUTSIDE RECORDS SUMMARY | 2025-04-19 12:20 | XMS_ITS | Clinical Summary ---
Author Organization [facility] Address [address] [place] [address] Phone Care Team Providers Care Labor Contractor Name Role Phone Unavailable Primary Care Provider [...] 08/18/2021, 07/28/2021 Colorectal Cancer Screening: Colonoscopy 07/19/2024 HIV Screening 07/19/2024 Hepatitis C Screening 07/19/2024 Social Influencers of Health Screening 07/19/2024 Depression Screening 09/27/2024 Diabetes: Annual Urine Albumin-Creatinine Ratio (uACR) 10/19/2024 [...]
== END 2025-04-19 11:23 | disposition home or self-care (01) ==
LOC: HO.MAMMO 11:22
PROVIDERS: PCP Internal Medicine; Visit Provider Family Medicine
DX: Z13.89 Encounter for screening for other disorder (principal)

== ENCOUNTER → 2025-04-27 23:59 | Outpatient (BNV) | payer MEDICAID, SELFPAY | PROVIDERS: PCP Internal Medicine; Visit Provider Internal Medicine Nephrology | DX: N18.6 End stage renal disease (principal) | CPT/HCPCS: 90961 ==

== ENCOUNTER → 2025-05-28 23:59 | Outpatient (BNV) | payer MEDICAID, SELFPAY | PROVIDERS: PCP Internal Medicine; Visit Provider Internal Medicine Nephrology | DX: N18.6 End stage renal disease (principal) | CPT/HCPCS: 90962 ==

== ENCOUNTER 2025-06-21 09:49 | Outpatient (AMB) | payer MEDICAID, SELFPAY ==
--- OUTSIDE RECORDS SUMMARY | 2024-03-16 07:15 | XMS_ITS ---
Author Organization Estuardo Kenyon III, MD Address [address] [place] [address] [place] [address] Care Team Providers Care Licensing Worker Name Role Phone YENI SALGUERO Primary Care Provider [phone] Dr. Estuardo Kenyon III Unavailable Allergies Allergen [...] Provider Specialty Oncology General Notes Esther Hernandez NEWSPAPER CORRESPONDENT 02/26 02:14:17 PM EDT > pt dtr Olga called given appt information and ref/progress notes and all testing faxed to Dr Zhou at [phone] Referral Priority Routine Referral Appointment Date 03/17/2024 [...] Problem Status W/U Status Risk Notes Problem 98226192 Cardiomyopathy, unspecified type (I42.9) Active confirmed Problem 76273182 Chronic renal failure, stage 4 (severe) (N18.4) Active confirmed We have mad e the final tester aware of the situation. The fistula in the left upper lung appears to be maturing well. The dialysis catheter and right upper chest wall is intact and seems to function normally. Problem 11854227 Hypertension, unspecified type (I10) Active confirmed Problem [id number] Progressive macular hypomelanosis (L81.6) Active confirmed Problem 782563468 AVF (arteriovenous fistula) (I77.0) Active confirmed Problem 12216369 End-stage renal disease (N18.6) Active confirmed Problem 094392088 Pacemaker (Z95.0) Active confirmed Problem 953475764 History of adenomatous polyp of colon (Z86.010) Active confirmed Problem 771352454 Type 2 diabetes mellitus with diabetic chronic kidney disease (E11.22) Active confirmed Problem 056612797 Chronic kidney disease, stage 5 (N18.5) Active confirmed Problem 568751921 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 Problem 21780743 Secondary hyperparathyroid ism of renal origin (N25.81) Active confirmed She is in end-stage renal disease. Problem 580951237 Malignant neoplasm of urinary bladder, unspecified site [...] Date Provider Diagnosis Estuardo Kenyon III, MD [address] [place] [address] [place] [address] 03/16/2024 Estuardo Kenyon Chronic renal failur e, stage 4 (severe) N18.4 ; Malignant neoplasm of urinary bladder, unspecified site C67.9 ; Type 2 diabetes mellitus with diabetic nephropathy, unspecified whether termite treater insulin use E11.21 ; Secondary hyperparathyroidism of [...] (ICD-10 - N18.4) We have made the final tester aware of the situation. The fistula in [...] apoorva itus with diabetic nephropathy, unspecified whether termite treater insulin use (ICD-10 - E11.21) Diabetes currently [...] * Jazmine RILEYDOB: [birth year] (58 yo F)Acc No.[id number]:03/16/2024 Patient: Maty Reynacelia Provider: Evaristo Kenyon MD :1965 A ge:58 Y S ex:Female Date:03/16/2024 Address:[address] [place] [address] [id number] Pcp:YENI SALGUERO Subjective: * Chief Complaints: * [...] yet as it is still healing. Her final tester is Dr. Martinez. She receives primary care at the [facility]. A CT scan of the abdomen at the [facility] recently showed a large mass in [...] have referred her to medical oncology at [facility] for further staging and definitive treatment. [...] - N18.4 (Primary), We have made the final tester aware of the situation. The fistula in [...] diabetes mellitus with diabetic nephropathy, unspecified whether termite treater insulin use - E11.21, Diabetes currently seems [...] 0 03/16/2024 Generated for Printi ng/Fajossueg/eTransmitting on: 0 06/21/2025 11:46 AM EDT History and Physical Notes * HPI (History of Present Illness) Category Sub-Category Detail Notes COVID-19 Screening Questions Have you had any new onset fever, chills, cough, congestion, sore throat, shortness of breath, muscle aches?: Yes cough stated longer than 48 hrs, Sore Throat Have you been exposed to the virus withi n the last 10 days?: No Have you travelled internationally in e last 10 days?: No Have you been [...]
--- OUTSIDE RECORDS SUMMARY | 2025-06-20 09:29 | XMS_ITS | Encounter Summary ---
Author Organization [facility] Address [address] [place] [address] Care Team Providers Care Director Equipment Name Role Phone Catherine Jon MD Primary Care Provider [phone] Reason for Referral * Imaging (Routine) - Pending Review Specialty Diagnoses / Procedures Referred By Amairani nicholas Referred To Contact Radiology Diagnoses Malignant neoplasm of bladder, unspecified (CMS/HCC V24, CMS/HCC V28) Procedures PET CT Skull to Mid Thigh Subsequent Calista Alcantara MD [address] [place] [address] HEMATOLOGY / [place] [address] Phone: tel: fax: [facility] Referral ID Status Reason Start Date Expiration Date V isits Requested Visits Authorized [id number] Pending Review 06/19/2025 06/19/2026 1 1 Reason for Visit * Imaging (Routine) - Pending Review Specialty Diagnoses / Procedures Referred By Amairani nicholas Referred To Contact Radiology Diagnoses Malignant neoplasm of bladder, unspecified (CMS/HCC V24, CMS/HCC V28) Procedures PET CT Skull to Mid Thigh Subsequent Calista Alcantara MD [address] [place] [address] HEMATOLOGY / [place] [address] Phone: tel: fax: [facility] Referral ID Status Reason Start Date Expiration Date V isits Requested Visits Authorized [id number] Pending Review 06/19/2025 06/19/2026 1 1 Encounter Details Date Type Department Care Team (Latest Contact Info) Description 06/20/2025 9:29 AM EDT Hospital Encounter PET Scan [address] [place] [address] Malignant neoplasm of bladder, unspecified (CMS/HCC V24, CMS/HCC V28) Social History Tobacco Use Types Packs/Day Years Used Date Smoking Tobacco: Never Assessed Comments Unknown Sex and Gender Information Value Date Recorded Sex Assigned at Not on file Legal Sex Female 3:43 PM EDT Gender Identity Not on file Sexual Orientation Not on file documented as of this encounter Plan of Treatment Not on file documented as of this encounter Procedures Procedure Name Priority Date/Time Associated Diagnosis Comments PET CT SKULL TO MID THIGH SUBSEQUENT Routine 06/20/2025 11:42 AM EDT Malignant neoplasm of bladder, unspecified (CMS/HCC V24, CMS/HCC V28) documented in this encounter Results * PET CT Skull to Mid Thigh Subsequent (06/20/2025 11:42 AM EDT) Anatomical Region Laterality Modality Body Radiographic Diana ging 06/20/2025 3:08 PM EDT Impressions 06/20/2025 3:16 PM EDT No PET/CT evidence of metastatic disease. Persistent activity in the upper pole of the right kidney possibly related to hydronephrosis with underlying collecting system mass not excluded. Consider renal ultrasound for initial evaluation with history of renal insufficiency. -------- FINAL REPORT -------- Dictated By: Nicanor Murillo Dictated Date: 06/20/2025 15:08 ET Assigned Physician: Nicanor Murillo Reviewed and Electronically Signed By: Nicanor Murillo Signed Date: 06/20/2025 15:16 ET Workstation ID: [id number] Transcribed By: Self Edit Transcribed Date: 06/20/2025 15:08 ET Narrative 06/20/2025 3:16 PM EDT INDICATION: Bladder carcinoma, subsequent treatment strategy. Prior relevant studies: Multiple prior PET CTs most recent from October 18, 2024 Radiopharmaceutical: 11.3 mCi of F-18 FDG IV. Blood glucose: 142 mg/dl. PROCEDURE: Routine body FDG PET-CT imaging was performed from the skull base to the mid thighs and reconstructed in axial, coronal, and sagittal planes at the computer workstation with fused data from both the PET imaging study and attenuation correction CT. The CT portion of the examination was done strictly for attenuation correction and is not a true diagnostic CT examination. CTDI: 10.14 mGy FINDINGS: HEAD AND NECK: No abnormal FDG activity. THORAX: No abnormal FDG activity. ABDOMEN/PELVIS: No recurrent FDG avid retroperitoneal nodes. Persistent activity along the upper pole the right kidney with SUV max of 5.7 may be related to upper pole hydronephrosis with underlying collecting system mass not excluded. MUSCULOSKELETAL: No abnormal FDG activity. Procedure Note Nicanor Murillo MD - 06/20/2025 INDICATION: Bladder carcinoma, subsequent treatment strategy. Prior relevant studies: Multiple prior PET CTs most recent from 2024 Radiopharmaceutical: 11.3 mCi of F-18 FDG IV. Blood glucose: 142 mg/dl. PROCEDURE: Routine body FDG PET-CT imaging was performed from the skullbase to the mid thighs and reconstructed in axial, coronal, and sagittalplanes at the computer workstation with fused data from both the PETimaging study and attenuation correction CT. The CT portion of theexamination was done strictly for attenuation correction and is not a truediagnostic CT examination. CTDI: 10.14 mGy FINDINGS: HEAD AND NECK: No abnormal FDG activity. THORAX: No abnormal FDG activity. ABDOMEN/PELVIS: No recurrent FDG avid retroperitoneal nodes. Persistent activity along the upper pole the right kidney with SUV max of5.7 may be related to upper pole hydronephrosis with underlying collectingsystem mass not excluded. MUSCULOSKELETAL: No abnormal FDG activity. IMPRESSION: No PET/CT evidence of metastatic disease. Persistent activity in the upper pole of the right kidney possibly relatedto hydronephrosis with underlying collecting system mass not excluded.Consider renal ultrasound for initial evaluation with history of renalinsufficiency. -------- FINAL REPORT -------- Dictated By: Nicanor Murillo Dictated Date: 06/20/2025 15:08 ET Assigned Physician: Nicanor Murillo Reviewed and Electronically Signed By: Nicanor Murillo Signed Date: 06/20/2025 15:16 ET Workstation ID: [id number] Transcribed By: Self Edit Transcribed Date: 06/20/2025 15:08 ET [facility] Final Result documented in this encounter Visit Diagnoses Diagnosis Malignant neoplasm of bladder, unspecified (CMS/HCC V24, CMS/HCC V28) documented in this encounter Administered Medications Inactive Administered Medications - up to 3 most recent administrations Medication Order MAR Action Action Date Dose Rate Site F-18 FDG pet diag radio-isotope injection 11.3 millicurie 11.3 millicurie, intravenous, Once in imaging, Starting on Wed06/20/25 at 1030, For 1 dose Given 06/20/2025 10:20 AM EDT 11.3 millicuries Right Antecubital documented in this encounter Orders Medications Ordered That Ramirez ht Not Have Been Administered Count Last Ordered Date First Ordered Date F-18 FDG pet diag radio-isot ope injection 11.3 millicurie 1 06/20/2025 documented in this encounter Care Teams Director Equipment Relationship Specialty Start Date End Date Catherine Jon MD [address] [place] [address] PCP - General Family Medicine 06/07/25 documented as of this encounter
[2025-06-21 09:53] VITALS: BP 138/70; PULSE 68; O2SAT 100; BMI 25.0
--- NOTE | 2025-06-21 09:53 | A.OFFVIS_ITS ---
Vital Signs 06/21/25 09:53 Height 5 ft 1 in Weight 132 lb 4.438 oz BMI 25.0 BP 138/70 Blood Pressure Location Rt brachial Position Sitting Pulse 68 Pulse Source Pulse Oximeter Pulse Oximetry (%) 100 Oxygen Delivery Method Room Air Intake Visit Reasons: T2DM Intake Note: presents today for a follow-up on Type 2 Diabetes Mellitus: Patient stated bg Morning 140's, Afternoon 200s, 150s Last Diabetic eye exam was on: DUE, pt goes to [facility], I told the pt to please call to clarita an appt. Last Podiatry exam was on: Patient does not see a Glacing Machine Tender Most recent HbA1c: 5.9%, 06/21/2025 Random Glucose- 165 mg/dL, Today Gardener Florist Required: Yes Gardener Florist Language: Dredgemaster Services: Gardener Florist Offered & Declined Gardener Florist Name: CAR RENTAL SALES ASSISTANT Accompanied by: Other Relationship Allergies No Known Allergies (No Known Allergies*) Allergy (Verified 06/21/25 09:57) HPI Comments Details: 59 year old presenting for diabetic consultation PCP: Catherine Jon MD, [facility] Medical History: ESRD on HD, high grade bladder cancer, hypertension, chronic low back pain, IJ thrombosis Medications: Lantus 32 units, Lispro 8-18 unit TID cc Previously: Farxiga (stopped last Cr 7.96 on 07/2024). POC A1C today is 5.9% She forgot her meter today. Reports one low since last Eye exam is overdue. Referred today +neuropathy b/l feet ROS CONSTITUTIONAL: Denies weight loss, fever and chills. HEENT: Denies changes in vision and hearing. RESPIRATORY: Denies SOB and cough. CV: Denies palpitations and CP GI: Denies abdominal pain, nausea, vomiting and diarrhea. : Denies dysuria and urinary frequency. MSK: Denies new myalgia and joint pain. SKIN: Denies rash and pruritus. NEUROLOGICAL: Painful neuropathy LE PSYCHIATRIC: Denies recent changes in mood. PHYSICAL EXAM: GENERAL: Alert and oriented x 3. NAD EYES: EOMI. Anicteric. HENT: Moist mucous membranes. No scleral icterus. No cervical lymphadenopathy. LUNGS: Clear to auscultation bilaterally. CARDIOVASCULAR: Regular rate and rhythm. No murmur. No JVD. ABDOMEN: Soft, non-tender +bs EXTREMITIES: No edema. Non-tender. SKIN: Tinea pedis -feet NEUROLOGIC: No focal neurological deficits. CN II-XII grossly intact PSYCHIATRIC: Cooperative. Appropriate mood and affect [facility] Medical History ESRD (end stage renal disease) on dialysis Mass of bladder Bladder mass Pacemaker History of adenomatous polyp of colon Cardiomyopathy Chronic kidney disease, stage 4 (severe) Hypertension Type 2 diabetes mellitus with diabetic nephropathy Surgical History History of insertion of tunneled central venous catheter (CVC) with port History of bladder surgery History of ankle surgery History of biopsy Family History Father No problems noted. Mother No problems noted. Social History Household Members: Children Housing: House Are you a primary critical care technician to a significant other at home: No Do you presently have visiting nurse or other home services: No Alcohol intake: never Patient Tobacco Use Status: Never used Tobacco service: No Current occupational status: disabled Gender identity: Female Physical Exam Vital Signs: Last Vital Signs Pulse 68 06/21/25 09:53 BP 138/70 06/21/25 09:53 Pulse Ox 100 06/21/25 09:53 Oxygen Delivery Method Room Air 06/21/25 09:53 BMI result Body Mass Index 25.0 Results AMB Hemoglobin A1c AMB Hemoglobin A1c 5.9 % Last Edit by ESPERANZA Cote on 06/21/25 10:30 Results Reviewed Results Reviewed: Laboratory Last Values Glucose (Clinic) 165 mg/dL (60-115) H 06/21/25 10:00 Hgb A1c (Clinic) 5.9 % (4.0-6.0) 06/21/25 10:29 Assessment & Plan Assessment & Plan (1) Diabetes mellitus with insulin therapy: Code(s): E11.9 - Type 2 diabetes mellitus without complications; Z79.4 - termite exterminator helper (current) use of insulin Category: Medical Plan DM-controlled on current regimen No medication changes today for DM Add gabapentin for painful neuropathy. Lotrisone ordered for feet Treat hypoglycemia by rule of 15s Follow up in 3 months or sooner as needed Orders: Orders AMB Hemoglobin A1c Today E11.9 - Type 2 diabetes mellitus without complications, Z79.4 - termite exterminator helper (current) use of insulin Referrals Ophthalmology Referral E11.9 - Type 2 diabetes mellitus without complications, Z79.4 - termite exterminator helper (current) use of insulin Medications: New FreeStyle Test (blood sugar diagnostic) four times daily 400 ea 3RF NS E11.9 - Type 2 diabetes mellitus without complications, Z79.4 - termite exterminator helper (current) use of insulin aspirin 81 mg PO QAM 90 tabs 3RF gabapentin 300 mg PO TID 270 caps 3RF clotrimazole-betamethasone 1-0.05 % Apply topically to feet up to two times daily 1 appl topical BID 45 grams 1RF rash feet Coding Level of Care Code Est Pt Level 4 (44870) Diagnoses Diabetes mellitus with insulin therapy E11.9; Z79.4
[2025-06-21 10:05] LABS: Glucose, Whole Blood 165 mg/dL (60-115)
--- OUTSIDE RECORDS SUMMARY | 2025-06-21 11:45 | XMS_ITS | Encounter Summary ---
Author Organization [employer] Address [address] [facility] 7t [place] [address] Care Team Providers Care Passenger Relations Representative Name Role Phone Catherine Jon MD Primary Care Provider [phone] Kyle Velez RN Unavailable [phone] Isha Do Unavailable Reason for Visit * Reason Onset Date Comments No Show 06/18/2025 Encounter Details Date Type Department Care Team ([facility] Contact Info) Description 06/18/2025 Telephone [facility] [address] [place] [address] Catherine Jon MD [address] [place], [place] [id number] No Show Social History Tobacco Use Types Packs/Day Years [...] the past 12 months, has t he [employer], oil or water company threatened to shut [...] encounter Miscellaneous Notes * Telephone Encounter - Ho Jenkinsto - 06/18/2025 1:19 PM EDT No show 06/18/25 documented in this encounter Plan of Treatment Not on file documented as of this encounter Visit Diagnoses Not on filedocumented in this encounter Care Teams Passenger Relations Representative Relationship Specialty Start Date End Date Catherine Jon MD [address] [place] [address] PCP - General Family Medicine 09/21/24 Kyle Velez, RN [address] [place] [address] Registered Nurse Family Medicine 06/15/25 Isha Do 06/15/25 [facility] 07/26/24 Blaire Alcantara MD [facility] Center [address] [place] [address] [address] [place] [address] Medical Oncologist Hematology and Oncology 09/21/24 Jung Maxwell MD [facility] Center [address] [place] [address] [place] [address] Consulting Physician Urology 09/21/24 Bryant Ferro DO Consulting Physician Cardiology 09/21/24 [facility] [address] [place] [phone] Consulting Physician Nephrology 09/21/24 Denilson Fay MD, PhD [facility] [address] [place] [address] Consulting Physician Ophthalmology 09/21/24 [employer], QUARRY WORKER Agency [address] [place] [address] Personal Care Services 09/21/24 documented as of this encounter
--- OUTSIDE RECORDS SUMMARY | 2025-06-21 11:45 | XMS_ITS ---
Author Organization [employer] Address [address] [place] [address] 7t [place] [address] Care Team Providers Care Sheet Metal Worker Maintenance Name Role Phone Catherine Jon MD Primary Care Provider [phone] Kyle Velez RN Unavailable [phone] Isha Do Unavailable CH[facility] Complex Status:Identified (Enrolling) Start date:06/15/2025 Enrollment reason:ADT Feed Overview ED- Pt went to [facility] ED on 06/14/25. Case Team Name Relationship Phone Isha Do(Responsible Staff) Continued Care and Services Coordination
--- OUTSIDE RECORDS SUMMARY | 2025-06-21 11:45 | XMS_ITS | Encounter Summary ---
Author Organization [employer] Address [address] [facility] 7t [place] [address] Care Team Providers Care Clear Coat Sprayer Name Role Phone Catherine Jon MD Primary Care Provider [phone] Kyle Velez RN Unavailable [phone] Isha Do Unavailable Reason for Visit * Reason Comments Transition Of Care (Tcm) HDF unscheduled Encounter Details Date Type Department Care Team (Late st Contact Info) Description 06/19/2025 Patient Outreach [facility] [address] [place] [address] Catherine Jon MD [address] [place], [place] [phone] Transition Of Care (Tcm) (HDF unscheduled) Social History Tobacco Use Types Packs/Day Years [...] as of this encounter Miscellaneous Notes * Significant Event - Danni Hdz - 06/19/2025 8:52 AM EDT 06/19/25 0851 Hospital Discharges and Admission for [facility] Type of Visit Hospital Admission Date of Admission/Visit 06/14/25 Date of Discharge 06/15/25 Facility [facility] Diagnosis Hyperkalemia Disposition Discharged Home Follow-Up Actions Follow-Up Needed Provider appointment Follow-Up Outcome Left Voicemail Initial Contact Date 06/19/25 CC Danni placed second outbound call to patient for HDF outreach. CC placed second outreach call to offer patient with an HDF appointment with provider. No answer at this time. Patient's name and were not confirmed. CC left detailed message educating patient on importance of following up with provider following an inpatient admission. Provided contact information requesting a call back in order to schedule the HDF appointment. Patient educated via voicemail on extended clinic hours on Mondays and Wednesdays, and Walk-In Urgent Care Located in [facility]. Patient provided with after-hours line for [facility], , which offer night time triage service and option to transfer to information services assistant provider if needed. CC will await return call from the patient. documented in this encounter Plan of Treatment Not on file documented as of this encounter Visit Diagnoses Not on filedocumented in this encounter Care Teams Clear Coat Sprayer Relationship Specialty Start Date End Date Catherine Jon MD [address] [place] [address] PCP - General Family Medicine 09/21/24 Kyle Velez, RN [address] [place] [address] Registered Nurse Family Medicine 06/15/25 Isha Do 06/15/25 [facility] 07/26/24 Blaire Alcantara MD [facility] Center [address] [facility] [address] [place] [address] Medical Oncologist Hematology and Oncology 09/21/24 Jung Maxwell MD [facility]rology Center [address] [place] [address] [place] [address] Consulting Physician Urology 09/21/24 Bryant Ferro DO Consulting Physician Cardiology 09/21/24 [facility] [address] [place] [address] Consulting Physician Nephrology 09/21/24 Denilson Fay MD, PhD [facility] [address] [place], [place] [phone] Consulting Physician Ophthalmology 09/21/24 [employer], AUTOMOBILE MECHANIC ASSISTANT Agency [address] [place] [address] Personal Care Services 09/21/24 documented as of this encounter
--- OUTSIDE RECORDS SUMMARY | 2025-06-21 11:45 | XMS_ITS | Encounter Summary ---
Author Organization [employer] Address [address] [facility] 7t [place] [address] Care Team Providers Care Timber Mill Worker Name Role Phone Catherine Jon MD Primary Care Provider [phone] Kyle Velez RN Unavailable [phone] Isha Do Unavailable Encounter Details Date Type Department Care Team (Late st Contact Info) Description 09/24/2022 Orders Only [facility] [address] [place], [place] [phone] Lydia Haq RN Social History Tobacco Use [...] on filedocumented in this encounter Care Teams Timber Mill Worker Relationship Specialty Start Date End Date Catherine Jon MD [address] [place] [address] PCP - General Family Medicine 09/21/24 Kyle Velez, RN [address] [place] [address] Registered Nurse Family Medicine 06/15/25 Isha Do 06/15/25 [facility] 07/26/24 Blaire Alcantara MD [facility] Oncology Center [address] [facility] [address] [place] [address] Medical Oncologist Hematology and Oncology 09/21/24 Jung Maxwell MD [facility] Urology Center [address] [place] [address] [place] [address] Consulting Physician Urology 09/21/24 Bryant Ferro DO Consulting Physician Cardiology 09/21/24 [facility] [address] [place] [address] Consulting Physician Nephrology 09/21/24 Denilson Fay MD, PhD [facility] [address] [place] [address] Consulting Physician Ophthalmology 09/21/24 [employer], VETERINARY MICROBIOLOGIST Agency [address] [place] [address] Personal Care Services 09/21/24 documented as of this encounter
--- OUTSIDE RECORDS SUMMARY | 2025-06-21 11:45 | XMS_ITS | Encounter Summary ---
Author Organization [employer] Address [address] [facility] [address] [place] [address] Care Team Providers Care Canvas Cutter Name Role Phone Catherine Jon MD Primary Care Provider [phone] Kyle Velez RN Unavailable [phone] Isha Do Unavailable Encounter Details Date Type Department Care Team (Late st Contact Info) Description 11/23/2022 Orders Only [facility] [address] [place], [place] [phone] Ana Cristina Haq LPN Social History Tobacco [...] on filedocumented in this encounter Care Teams Canvas Cutter Relationship Specialty Start Date End Date Catherine Jon MD [address] [place] [address] PCP - General Family Medicine 09/21/24 Kyle Velez, RN [address] [place] [address] Registered Nurse Family Medicine 06/15/25 Isha Do 06/15/25 [facility] 07/26/24 Blaire Alcantara MD [facility] Oncology Center [address] [facility] [address] [place] [address] Medical Oncologist Hematology and Oncology 09/21/24 Jung Maxwell MD [facility] Urology Center [address] [place] [address] [address] [place] [address] Consulting Physician Urology 09/21/24 Bryant Ferro DO Consulting Physician Cardiology 09/21/24 [facility] [address] [place] [phone] Consulting Physician Nephrology 09/21/24 Denilson Fay MD, PhD [facility] [address] [place] [address] Consulting Physician Ophthalmology 09/21/24 [employer], AUDIO PRODUCTION INSTRUCTOR Agency [address] [place] [address] Personal Care Services 09/21/24 documented as of this encounter
--- OUTSIDE RECORDS SUMMARY | 2025-06-21 11:45 | XMS_ITS | Encounter Summary ---
Author Organization [employer] Address [address] [facility] 7t [place] [address] Care Team Providers Care Digital Computer Operator Name Role Phone Catherine Jon MD Primary Care Provider [phone] Kyle Velez RN Unavailable [phone] Isha oD Unavailable Encounter Details Date Type Department Care Team (Late st Contact Info) Description 09/30/2022 Orders Only [facility] [address] [place] [address] Anne Gama LPN Social History Tobacco Use [...] on filedocumented in this encounter Care Teams Digital Computer Operator Relationship Specialty Start Date End Date Catherine Jon MD [address] [place] [address] PCP - General Family Medicine 09/21/24 Kyle Velez, RN [address] [place] [address] Registered Nurse Family Medicine 06/15/25 Isha Do 06/15/25 [facility] 07/26/24 Blaire Alcantara MD [facility] On[facility] Center [address] [facility] [address] [place] [address] Medical Oncologist Hematology and Oncology 09/21/24 Jung Maxwell MD [facility] Center [address] [place] [address] [place] [address] Consulting Physician Urology 09/21/24 Bryant Ferro DO Consulting Physician Cardiology 09/21/24 [facility] [address] [place] [phone] Consulting Physician Nephrology 09/21/24 Denilson Fay MD, PhD [facility] [address] [place], [place] [phone] Consulting Physician Ophthalmology 09/21/24 [employer], SENIOR SPECIALIST Agency [address] [place] [address] Personal Care Services 09/21/24 documented as of this encounter
--- OUTSIDE RECORDS SUMMARY | 2025-06-21 11:45 | XMS_ITS | Encounter Summary ---
Author Organization [employer] Address [address] [facility] 7t [place] [address] Care Team Providers Care Radiology Technologist Name Role Phone Catherine Jon MD Primary Care Provider [phone] Kyle Velez RN Unavailable [phone] Isha Do Unavailable Reason for Visit * Reason Onset Date Comments Call Back Request 11/23/2024 Encounter Details Date Type Department Care Team ([facility] st Contact Info) Description 11/23/2024 Telephone [facility] MEDICINE 230 [place] [address] Catherine Jon MD [address] [place], [place] [phone] Call Back Request Social History Tobacco Use [...] t he electric, gas, oil or water [employer] threatened to shut off services in your [...] from pt requesting a call back from [place]. Contact pt at [phone] documented in this encounter Plan of Treatment Not on file documented as of this encounter Visit Diagnoses Not on filedocumented in this encounter Care Teams Radiology Technologist Relationship Specialty Start Date End Date Catherine Jon MD 505 [place] [address] PCP - General Family Medicine 09/21/24 Kyle Velez, TYESHA 505 [place] [address] Registered Nurse Family Medicine 06/15/25 Isha Do 06/15/25 [facility] 07/26/24 Blaire Alcantara MD [facility] [address] [place] [address] Medical Oncologist Hematology and Oncology 09/21/24 Jung Maxwell MD [facility] [address] [place] [address] [place] [address] Consulting Physician Urology 09/21/24 Bryant Ferro DO Consulting Physician Cardiology 09/21/24 [facility] [address] [place] [address] [phone] Consulting Physician Nephrology 09/21/24 Denilson Fay MD, PhD [facility] [place] - [address] [address] Consulting Physician Ophthalmology 09/21/24 [employer], LITERARY WRITER Agency [address] [place] [address] Personal Care Services 09/21/24 documented as of this encounter
--- OUTSIDE RECORDS SUMMARY | 2025-06-21 11:45 | XMS_ITS | Encounter Summary ---
Author Organization [employer] Address 75 [facility] 7t [place] [address] Care Team Providers Care Client Customer Manager Name Role Phone Catherine Jon MD Primary Care Provider [phone] Kyle Velez RN Unavailable [phone] Isha Do Unavailable Reason for Visit * Reason Onset Date Comments Change PCP 08/03/2024 Encounter Details Date Type Department Care Team ([facility] st Contact Info) Description 08/03/2024 Telephone [facility] MEDICINE 230 [place], [place] [phone] Anne Talamantes DO 230 [place], [place] [phone] Change PCP Social History Tobacco Use Types [...] t he electric, gas, oil or water [employer] threatened to shut off services in your [...] from pt stating she has moved to [place] and is requesting to change locations due to convince. If any questions you can contact pt at [phone]. (Ecuadorean Speaker) documented in this encounter Plan of Treatment Not on file documented as of this encounter Visit Diagnoses Not on filedocumented in this encounter Care Teams Client Customer Manager Relationship Specialty Start Date End Date Catherine Jon MD 505 [place] [address] PCP - General Family Medicine 09/21/24 Kyle Velez, RN 505 [place] [address] Registered Nurse Family Medicine 06/15/25 Isha Do 06/15/25 [facility] 07/26/24 Blaire Alcantara MD [facility] [address] [place] [address] [address] [place] [address] Medical Oncologist Hematology and Oncology 09/21/24 Jung Maxwell MD [facility] [address] [place] [address] [place] [address] Consulting Physician Urology 09/21/24 Bryant Ferro DO Consulting Physician Cardiology 09/21/24 [facility] 10 [place] [address] Consulting Physician Nephrology 09/21/24 Denilson Fay MD, PhD [facility] 180 [place] [address] Consulting Physician Ophthalmology 09/21/24 [employer], RETAIL AIDE Agency 25 [place] [address] Personal Care Services 09/21/24 documented as of this encounter
--- OUTSIDE RECORDS SUMMARY | 2025-06-21 11:45 | XMS_ITS ---
Author Organization [employer] Address [address] [facility] 7t [place] [address] Care Team Providers Care Loan Workout Officer Name Role Phone Catherine Jon MD Primary Care Provider [phone] Kyle Velez RN Unavailable Isha Do Unavailable CM Complex Status:Identified (Enrolling) Start date:06/15/2025 Enrollment reason:ADT Feed Overview ED- Pt went to [facility] ED on 06/14/25. Case Team Name Relationship Phone Kyle Velez RN(Responsible Staff) Registered Kiya ramírez [phone] Continued Care and Services Coordination
--- OUTSIDE RECORDS SUMMARY | 2025-06-21 11:45 | XMS_ITS | Encounter Summary ---
Author Organization [employer] Address [address] [address] 7t [place] [address] Care Team Providers Care Plastics Spreading Machine Operator Name Role Phone Catherine Jon MD Primary Care Provider [phone] Kyle Velez RN Unavailable [phone] Isha Do Unavailable Encounter Details Date Type Department Care Team (Late st Contact Info) Description 06/18/2025 Patient Outreach [facility] MEDICINE 230 [place] [address] Catherine Jon MD [address] [employer], [place] [phone] Social History Tobacco Use Types Packs/Day Years [...] on filedocumented in this encounter Care Teams Plastics Spreading Machine Operator Relationship Specialty Start Date End Date Catherine Jon MD 505 [place] [address] PCP - General Family Medicine 09/21/24 Kyle Velez RN 505 [place] [address] Registered Nurse Family Medicine 06/15/25 Isha Do [facility]15[facility] Blaire Alcantara MD [facility] [address] [place] [address] [address] [place] [address] Medical Oncologist Hematology and Oncology 09/21/24 Jung Maxwell MD [facility] [address] [place] [address] [place] [address] Consulting Physician Urology 09/21/24 Bryant Ferro DO Consulting Physician Cardiology 09/21/24 [facility] [address] [place] [address] Consulting Physician Nephrology 09/21/24 Denilson Fay MD, PhD [facility] 180 [place] [address] Consulting Physician Ophthalmology 09/21/24 [employer], CATERER HELPER Agency 25 [place] [address] Personal Care Services 09/21/24 documented as of this encounter
--- OUTSIDE RECORDS SUMMARY | 2025-06-21 11:45 | XMS_ITS | Encounter Summary ---
Author Organization [employer] Address [address] [facility] 7t [place] [address] Care Team Providers Care Software Client Architect Name Role Phone Catherine Jon MD Primary Care Provider [phone] Kyle Velez RN Unavailable [phone] Isha Do Unavailable Reason for Visit * Reason Comments Transition Of Care (Tcm) HDF unscheduled Encounter Details Date Type Department Care Team (Late st Contact Info) Description 06/18/2025 Patient Outreach [facility] MEDICINE 230 [place] [address] Catherine Jon MD [address] [place], [place] [phone] Transition Of Care (Tcm) (HDF unscheduled) Social [...] * Significant Event - Danni Hdz - 06/18/2025 8:15 AM EDT 06/18/25 0814 Hospital Discharges and Admission for [facility] Type of Visit Hospital Admission Date of Admission/Visit 06/14/25 Date of Discharge 06/15/25 Facility [facility] Diagnosis Hyperkalemia Disposition Discharged Home Follow-Up Actions Follow-Up Needed Provider appointment Follow-Up Outcome Left Voicemail Initial Contact Date 06/18/25 CC Danni placed outbound call to patient for HDF outreach CC placing call to offer patient with anHDF appointment with provider. No answer at this time. Patient's name and were not confirmed. CC left detailed message educating patient on importance of following up with provider following an inpatient admission. Provided contact information requesting a call back in order to schedule the HDFappointment. Patient educated via voicemail on extended clinic hours on Mondays and Wednesdays, [facility] Patient provided with after-hours line for [facility], , which offer night time triage service and option to transfer to restoration officer provider if needed.[facility] discharge summary has been scanned into patient chart. CC will place additional outreach call within 2-5 business days. documented in this encounter Plan of Treatment Not on file documented as of this encounter Visit Diagnoses Not on filedocumented in this encounter Care Teams Software Client Architect Relationship Specialty Start Date End Date Catherine Jon MD [address] [place] [address] PCP - General Family Medicine 09/21/24 Kyle Velez, RN 505 [place] [address] Registered Nurse Family Medicine 06/15/25 Isha Do 06/15/25 [facility] 07/26/24 Blaire Alcantara MD [facility] [address] [facility] [address] [place] [address] Medical Oncologist Hematology and Oncology 09/21/24 Jung Maxwell MD [facility] [address] [place] [address] Consulting Physician Urology 09/21/24 Bryant Ferro DO Consulting Physician Cardiology 09/21/24 [facility] [address] [place] [address] Consulting Physician Nephrology 09/21/24 Denilson Fay MD, PhD [facility] 180 [place], [place] [phone] Consulting Physician Ophthalmology 09/21/24 [employer], PIN DRAFTER OPERATOR Agency 25 [place] [address] Personal Care Services 09/21/24 documented as of this encounter
--- OUTSIDE RECORDS SUMMARY | 2025-06-21 11:46 | XMS_ITS | Encounter Summary ---
Author Organization [employer] [facility] Address [address] [facility] 7t [place] [address] Care Team Providers Care Hospice Team Lead Name Role Phone Catherine Jon MD Primary Care Provider [phone] Kyle Velez RN Unavailable [phone] Isha Do Unavailable Encounter Details Date Type Department Care Team (Late st Contact Info) Description 01/06/2024 Orders Only [facility] MEDICINE [address] [place], [place] [phone] Provider, MD Karoline Social History Tobacco Use [...] Procedure Name Priority Date/Time Associated Diagnosis Comments COLONOSCOPY Routine 03/08/2019 11:49 AM EDT documented in this encounter Results * Hm Colonoscopy (03/08/2019 11:49 AM EDT) Historical Provider HEALTH MAINTENANCE Final Result documented in this encounter Visit Diagnoses Not on filedocumented in this encounter Care Teams Hospice Team Lead Relationship Specialty Start Date End Date Catherine Jon MD 505 [place] [address] PCP - General Family Medicine 09/21/24 Kyle Velez, RN 505 [place] [address] Registered Nurse Family Medicine 06/15/25 Isha Do [facility]25 [facility] Blaire Alcantara MD [facility] [address] [facility] [address] [place] [address] Medical Oncologist Hematology and Oncology 09/21/24 Jung Maxwell MD [facility] [address] [place] [address] [place] [address] Consulting Physician Urology 09/21/24 Bryant Ferro DO Consulting Physician Cardiology 09/21/24 [facility] [address] [place] [address] Consulting Physician Nephrology 09/21/24 Denilson Fay MD, PhD [facility] - [address] [phone] Consulting Physician Ophthalmology 09/21/24 [employer], MANAGER UTILIZATION REVIEW Agency 25 [place] [address] Personal Care Services 09/21/24 documented as of this encounter
--- OUTSIDE RECORDS SUMMARY | 2025-06-21 11:46 | XMS_ITS | Encounter Summary ---
Author Organization [employer] [facility] Address [address] [facility] 7t [place] [address] Care Team Providers Care Gift Manager Name Role Phone Catherine Jon MD Primary Care Provider Kyle Velez RN Unavailable [phone] Isha Do Unavailable Reason for Visit * Reason Comments Med Refill Encounter Details Date Type Department Care Team ([facility] st Contact Info) Description 02/26/2023 Refill [facility] MEDICINE 230 [place] [address] Claribel Dalton MD 230 [place] [address] Type 2 diabetes mellitus with hyperglycemia, unspecified whether [facility] insulin use (CMS/HCC) Social History Tobacco Use Types Packs/Day Years [...] whether [facility] insulin use (CMS/HCC) documented in this encounter Care Teams Gift Manager Relationship Specialty Start Date End Date Catherine Jon MD 505 [place] [address] PCP - General Family Medicine 09/21/24 Kyle Velez, TYESHA 505 [place] [address] Registered Nurse Family Medicine 06/15/25 Isha Do 06[facility]15/25 [facility] Blaire Alcantara MD [facility] On[facility] Center [address] [place] [address] Medical Oncologist Hematology and Oncology 09/21/24 Jung Maxwell MD [facility] Urology Center [address] [place] [address] [place] [address] Consulting Physician Urology 09/21/24 Bryant Ferro DO Consulting Physician Cardiology 09/21/24 [facility] [address] [place] [address] Consulting Physician Nephrology 09/21/24 Denilson Fay MD, PhD [facility] 180 [place], [place] [phone] Consulting Physician Ophthalmology 09/21/24 [employer], ACCOUNT STRATEGIST Agency 25 [place], [place] [phone] Personal Care Services 09/21/24 documented as of this encounter
--- OUTSIDE RECORDS SUMMARY | 2025-06-21 11:46 | XMS_ITS | Encounter Summary ---
Author Organization [employer] Address [address] [place] [address] 7t [place] [address] Care Team Providers Care River Boat Captain Name Role Phone Catherine Jon MD Primary Care Provider [phone] Kyle Velez RN Unavailable [phone] Isha Do Unavailable Reason for Visit * Reason Onset Date Comments Hospital Follow-up 04/11/2024 Encounter Details Date Type Department Care Team (Late st Contact Info) Description 04/11/2024 Telephone [facility] MEDICINE 230 [place], [place] [phone] Anne Talamantes DO 230 [place], [place] [phone] Hospital Follow-up Social History Tobacco Use Types [...] from pt requesting a HDF appt. Hospital: [facility] Date of admission: 04/07 Discharge date: 04/11 Diagnosed: Kidney Failure documented in this encounter Plan of Treatment Not on file documented as of this encounter Visit Diagnoses Not on filedocumented in this encounter Care Teams River Boat Captain Relationship Specialty Start Date End Date Catherine Jon MD [address] [place] [address] PCP - General Family Medicine 09/21/24 Kyle Velez, RN 505 [place] [address] Registered Nurse Family Medicine 06/15/25 Isha Do 06[facility]15/25 [facility] Blaire Alcantara MD [facility] On[facility] Center [address] [place] [address] [address] [place] [address] Medical Oncologist Hematology and Oncology 09/21/24 Jung Maxwell MD [facility] [address] [place] [address] Dr Chris [address] [place] [address] Consulting Physician Urology 09/21/24 Bryant Ferro DO Consulting Physician Cardiology 09/21/24 [facility] [address] [place] [address] Consulting Physician Nephrology 09/21/24 Denilson Fay MD, PhD [facility] 180 [place], [place] [phone] Consulting Physician Ophthalmology 09/21/24 [employer], SHELL SORTER Agency 25 [place], [place] [phone] Personal Care Services 09/21/24 documented as of this encounter
--- OUTSIDE RECORDS SUMMARY | 2025-06-21 11:46 | XMS_ITS | Clinical Summary ---
Author Organization [email or web address] Address [address] [place] [address] Care Team Providers Care Blocker And Polisher Gold Wheel Name Role Phone Catherine Jon MD Primary Care Provider [phone] Kyle eVlez RN Unavailable [phone] Ihsa Do Unavailable Allergies No known active allergies Medications Trulicity 1.5 MG/0.5ML solution pen-injectorInd ications:Type 2 diabetes mellitus with other specified complication, with long-term current use of insulin ([facility]) INJECT ONE PEN (=1.5MG) SUBCUTANEOUSLY ONCE A WEEK DIRECTED 2 mL 023 Active Blood Glucose Monitoring Suppl (FreeStyle [place] Lite) w/Device kit Use to test blood sugar 3 times daily 1 kit 024 Active TRUEplus Lancets 33G miscIndications :Diabetic nephropathy associated with type 2 diabetes mellitus ([facility]) TEST BLOOD SUGAR SIX TIMES DAILY 200 each 11 024 Active FREESTYLE LITE test stripIndication s:Type 2 diabetes mellitus with diabetic nephropathy, with long-term current use of insulin ([facility]) TEST BLOOD SUGAR SIX TIMES DAILY 150 strip 7 024 Active cinacalcet (Sensipar) 30 MG tablet Take 1 tablet by mouth 3 (three) times a week. 024 Active metoprolol tartrate (Lopressor) 50 MG tablet Take 1 tablet by mouth 2 times daily. 024 Active oxybutynin (Ditropan) 5 MG tablet TAKE 1 TABLET BY MOUTH EVERY 8 HOURS FOR BLADDER SPASMS 024 Active sevelamer carbonate (Renvela) 800 MG tablet [...] Continuous Glucose Sensor (FreeStyle Gary 2 Sensor) [facility] Apply 1 sensor every 14 days 2 each Active Continuous Glucose Piercing Mill Operator (FreeStyle Gary 2 Nova) device Scan sensor every 8 hours 1 each Active hydrALAZINE (Apresoline) 10 MG tabletIndicatio ns:Essential hypertension Take 1 tablet (10 mg) by mouth 2 times daily. 60 tablet 025 2025 Active Alcohol Swabs (Alcohol Prep) 70 % padsIndications :Type 2 diabetes mellitus with other specified complication, unspecified whether longterm insulin use ([facility]) Test blood glucose QID 100 each Active Senna S 8.6-50 MG tablet Take 1 tablet by mouth if needed at bedtime for constipation. 30 tablet 1 Active apixaban (Eliquis) 2.5 MG tablet TAKE 1 TABLET BY MOUTH TWICE DAILY IN THE MORNING AND IN THE EVENING 60 tablet 5 Active insulin lispro (HumaLOG) 100 UNIT/ML injectionIndica tions:Type 2 diabetes mellitus with hyperglycemia, unspecified whether rat exterminator insulin use ([facility]) INJECT 8-18 UNITS SUBCUTANEOUSLY THREE TIMES DAILY BEFORE BREAKFAST DIRECTED 15 mL 2 Active Pentips Generic Pen [place] 32G X 4 MM [facility] USE DIRECTED FOUR TIMES DAILY WITH INSULIN 100 each Active Ferrous Sulfate (iron) 325 (65 Fe) MG tablet TAKE 1 TABLET BY MOUTH EVERY EVENING 90 tablet 1 Active D3 Super Strength 50 MCG (2000 UT) capsule TAKE 1 CAPSULE BY MOUTH EVERY MORNING 90 capsule 1 025 Active rosuvastatin (Crestor) 40 MG tablet TAKE 1 TABLET BY MOUTH AT BEDTIME 90 tablet 1 Active benzonatate (Tessalon) 100 MG capsule Take 1 capsule by mouth 2 times daily. Active Farxiga 10 MG Take 10 mg by mouth in the morning. Active TRUEplus Glucose 4 g chewable tablet CHEW ONE TABLET NEEDED FOR LOW BLOOD SUGAR 024 Active amitriptyline (Elavil) 50 MG tabletIndicatio ns:Type 2 diabetes mellitus with diabetic neuropathy, unspecified whether rat exterminator insulin use (CMS/HCC) TAKE 1 TABLET BY MOUTH AT BEDTIME 30 tablet 1 Active omeprazole (PriLOSEC) [address] capsule Take 1 capsule (20 mg) by mouth before breakfast and before evening meal. Do not crush or chew. 180 capsule Active doxycycline (Vibra-Tabs) 100 MG tablet Take 100 mg by mouth 2 times daily. Active traMADol (Ultram) 50 MG tablet TAKE 1 TABLET BY MOUTH TWICE DAILY NEEDED FOR PAIN (PAIN SCALE 7-10) Active omeprazole (PriLOSEC) [address] capsule TAKE 1 CAPSULE BY MOUTH TWICE DAILY IN THE MORNING AND IN THE EVENING BEFORE MEALS 180 capsule 025 2024 Discontinued(R eorder (will not trigger notification to Pharmacy)) amitriptyline (Elavil) 50 MG tabletIndicatio ns:Type 2 diabetes mellitus with diabetic neuropathy, unspecified whether rat exterminator insulin use (CMS/HCC) TAKE 1 TABLET BY MOUTH AT BEDTIME 30 tablet 1 025 2024 Discontinued oxyCODONE (Oxy-IR) 5 MG immediate release capsule Take 5 mg by mouth. 025 2024 Active Problems Problem Noted Date Diagnosed Date Paresthesia 06/18/2025 Chronic HFrEF (heart failure with reduced ejection fraction) 06/18/2025 Acute internal jugular vein thrombosis Overview (09/21/2024): Dx R sided IJV thrombosis, treated with eliquis, followed by hematology (Jul 2024) Assessment & Plan (09/21/2024 11:14 AM EST): Dx on Jul 2024, on eliquis, cont following with hematology AVF (arteriovenous fistula) 09/21/2024 custodial (current) use of insulin 09/21/2024 Pacemaker 09/21/2024 [...] BS numbers. Advised to follow up with Machine Mover to restart Farxiga. Ordering lab work for further evaluation. Advised to bring paperwork for Advanced Directives next visit. Follow up in 4 months. Encounters Date Type Department Care Team Description 06/19/2025 Patient Outreach [address] [phone] Catherine Jon MD Transition Of Care (Tcm) (HDF unscheduled) 06/18/2025 Patient Outreach [address] [address] Catherine Jon MD 06/18/[address] [address] Catherine Jon MD No Show 06/18/2025 Patient Outreach [address] [address] Catherine Jon MD Transition Of Care (Tcm) (HDF unscheduled) 06/15/2025 Patient Outreach [address] [phone] Catherine Jon MD Care Coordination (C3 -[facility] Isha Rodrigesz chart review) 06/15/2025 Patient Outreach [facility] [address] [place] [address] Catherine Jon MD Care Coordination (C3CM- chart review) 06/15/2025 Patient Outreach [address] [address] Catherine Jon MD 06/05/2025 Refill [facility] [address] [place] [phone] Catherine Jon MD 05/25/2025 Refill [facility] [address] [place] [phone] Catherine Jon MD Type 2 diabetes mellitus with diabetic neuropathy, unspecified whether longterm insulin use ([facility]) 04/30/2025 Telephone [facility] [address] [place] [address] Catherine Jon MD No Show 04/26/2025 Refill [facility] [address] [place] [address] Luke Allred MD 04/26/2025 Refill [facility] [address] [place] [address] Solitario Kelly MD 04/05/2025 3:00 PM EDT Clinical Support [facility] [address] [place] [address] Madelin Burch RN Unstable gait [R26.81] 04/05/2025 Travel 04/05/2025 Orders Only [facility] External Provider, [facility] 03/23/2025 Telephone [facility] [address] [place] [address] Catherine Jon MD ER Follow-up 03/23/2025 Refill [facility] [address] [place] [address] Catherine Jon MD Type 2 diabetes mellitus with diabetic neuropathy, unspecified whether rat exterminator insulin use ([facility]) from Last 3 Months Immunizations Immunization Administration [...] tox oid, preservative free, adsorbed 03/20/2022,01/01/2004 Tdap 03/22/2025,01/09/2010 Social History Tobacco Use Types Packs/Day Years [...] 100 10/06/2024 12:09 PM EST Temperature 36.6 C (97.8 F) 09/21/2024 10:53 AM EST Respiratory Rate 20 09/21/2024 10:53 AM EST [...] Colonoscopy 03/08/2024 03/08/2019 Colorectal Cancer Screening 03/08/2024 Lipid Panel 03/03/2025 03/03/2024, 07/28, 10/24/2021, Additional history exists Diabetes: Hemoglobin A1C 03/22/2025 024, 03/27/2024, 08/10/2022, Additional history exists COVID-19 Vaccine ( - season) 2025 03/20/2022, 08/18/2021, 07/28/2021 Influenza Vaccine (#1) 2025 , 07/28/2021, 07/08/2017, Additional history exists SDOH Screening 08/02/2025 08/02/2024 Tobacco Screening 09/21/2025 09/21/2024 Cervical Cancer Screening 11/22/2025 HPV/Cotest 11/22/2025 11/22/2020, 07/23/2017 Mammogram 02/24/2026 02/25/2024, 09/27, 10/15/2022, Additional history exists DTaP/Tdap/Td Vaccines (4 - Td or Tdap) 03/22/2035 03/22/2025, 03/20/2022, 01/09/2010, Additional history exists Hepatitis B Vaccines Completed 12/28/2014, 06/28/2013, 06/14/2002 [...] Procedure Name Priority Date/Time Associated Diagnosis Comments CT HEAD WO CONTRAST Routine 04/05/2025 9 :51 AM EDT POCT GLYCATED HEMOGLOBIN, TOTAL Routine 09/21/2024 11:15 AM EST Type 2 diabetes mellitus with diabetic nephropathy, with long-term current use of insulin ([facility]) LIPID PANEL, STANDARD Routine 03/03/2024 1:43 PM EDT Other fatigue BI MAMMOGRAM SCREENING TOMOSYNTHESIS BILATERAL Routine 02/25/2024 3:03 PM EDT HPV MRNA E6/E7 REFLEX TO HPV 16, 18/45 Routine 11/22/2020 12:00 AM EST HM COLONOSCOPY Routine 03/08/2019 11:49 AM EDT from Last 3 Months or Most Recently Relevant to Health Maintenance Results * CT Head w/o Contrast (04/05/2025 9:51 AM EDT) Anatomical Region Laterality Modality Head, Neck Computed Tomogra phy 04/05/2025 9:51 AM EDT Narrative 04/05/2025 10:18 AM EDT [address] [address] [address] Scan Report Signed Patient: Jazmine Max MR#: [id number] : 1965 Acct:[id number] Age/Sex: 59 / F ADM Date: 04/05/25 Loc: HO.CT Attending Dr: Calista Alcantara MD Ordering Physician: Calista Alcantara MD Date of Service: 04/05/25 Procedure(s): CT head/brain wo IV con Accession Number(s): [id number] cc: Calista Alcantara MD; Catherine Jon MD Report Number: [id number]: Total DLP = 784.00 mGy-cm EXAMINATION: CT HEAD WITHOUT CONTRAST CLINICAL INFORMATION: Sudden onset dizziness and nausea. Metastatic bladder cancer. COMPARISON: March 20, 2024. TECHNIQUE: Contiguous axial imaging was performed from the skull base to vertex without intravenous administration of contrast. This CT examination was performed using dose optimization techniques as appropriate, variously including the following: *Automated exposure control *Adjustment of mA and/or kV according to patient size (this includes techniques or standardized protocols for targeted exams where dose is matched to indication/reason for exam; i.e. extremities or head) *Use of iterative reconstruction technique DLP: 784 mGy-cm FINDINGS: No acute intracranial hemorrhage, mass effect, midline shift, hydrocephalus or herniation. Morgan-white matter differentiation is normal. Posterior cranial fossa contents demonstrated no acute hemorrhage or gross mass effect. Sellar/suprasellar region demonstrated no gross masses. Craniocervical junction demonstrates normal position of the cerebellar tonsils. Calcified plaques in the cavernous supracavernous segments of the ICAs and V4 segments of the vertebral arteries. No air-fluid levels in the paranasal sinuses. Poor pneumatization of the frontal sinuses. Tympanic cavities and mastoid cells are aerated Skin agustin in the superior left frontoparietal soft tissue scalp without gross fluid collection or hematoma. No acute fracture in the bony calvarium... CT/CT head/brain wo IV con IMPRESSION: No acute intracranial hemorrhage or acute brain abnormality by CT. No acute fracture, bony calvarium. Skin agustin, superior left frontoparietal soft tissue scalp. Atherosclerosis disease, intracranial. Electronically signed by: Shelton Levine MD 04/05/2025 10:15 AM EDT Dictated By: Shelton Lam MD Signed By: <Electronically signed by Shelton Alexis MD in OV> 04/05/25 1015 DD/ 0951 TD/TT: 04/05/[address] Worker: Procedure Note Donotuseinterpreter, Image - 04/05/[address] [address] [address] Scan Report Signed Patient: Jazmine MaxMR#: [id number] : 1965Acct:[id number] Age/Sex: 59 / FADM Date: 04/05/25 Loc: HO.CT Attending Dr: Calista Alcantara MD Ordering Physician: Calista Alcantara MD Date of Service: 04/05/25 Procedure(s): CT head/brain wo IV con Accession Number(s): [id number] cc: Calista Alcantara MD; Catherine Jon MD Report Number: [id number]: Total DLP = 784.00 mGy-cm EXAMINATION: CT HEAD WITHOUT CONTRAST CLINICAL INFORMATION: Sudden onset dizziness and nausea. Metastatic bladder cancer. COMPARISON: March 20, 2024. TECHNIQUE: Contiguous axial imaging was performed from the skull base to vertex without intravenous administration of contrast. This CT examination was performed using dose optimization techniques as appropriate, variously including the following: *Automated exposure control *Adjustment of mA and/or kV according to patient size (this includes techniques or standardized protocols for targeted exams where dose is matched to indication/reason for exam; i.e. extremities or head) *Use of iterative reconstruction technique DLP: 784 mGy-cm FINDINGS: No acute intracranial hemorrhage, mass effect, midline shift, hydrocephalus or herniation. Morgan-white matter differentiation is normal. Posterior cranial fossa contents demonstrated no acute hemorrhage or gross mass effect. Sellar/suprasellar region demonstrated no gross masses. Craniocervical junction demonstrates normal position of the cerebellar tonsils. Calcified plaques in the cavernous supracavernous segments of the ICAs and V4 segments of the vertebral arteries. No air-fluid levels in the paranasal sinuses. Poor pneumatization of the frontal sinuses. Tympanic cavities and mastoid cells are aerated Skin agustin in the superior left frontoparietal soft tissue scalp without gross fluid collection or hematoma. No acute fracture in the bony calvarium... CT/CT head/brain wo IV con IMPRESSION: No acute intracranial hemorrhage or acute brain abnormality by CT. No acute fracture, bony calvarium. Skin agustin, superior left frontoparietal soft tissue scalp. Atherosclerosis disease, intracranial. Electronically signed by: Shelton Levine MD 04/05/2025 10:15 AM EDT RP Dictated By: Shelton Lam MD Signed By: <Electronically signed by Shelton Alexis MDin OV> 04/05/25 1015 DD/ 0951 TD/TT: 04/05/25 [address] Worker: [facility] External Provider IMG CT PROCEDURES Edited Result - Final * (ABNORMAL) POCT HGB A1C (09/21/2024 11:15 AM EST) Hemoglobin A1C 6.9(A) 4.0 - 6.0 % QC Media Lot # [id number] Lot# Expiration Date [id number] Blood 09/21/2024 11:1 5 AM EST Catherine Jon MD POINT OF CARE TEST ENTER/EDIT ORDERABLES Final Result * (ABNORMAL) Lipid Panel, Standard (03/03/2024 1:43 PM EDT) Triglycerides 201(H) <150 mg/dL [facility] Comment:Desirable Triglyceri de: less than 150 mg/dLBorderline High Triglyceride 150-199 mg/dLHigh Triglyceride: 200-499 mg/dLVery High Triglyceride: greater than or equal to 5OO mg/dL Cholesterol 146 <200 mg/dL [facility] Comment:Desirable Cholestero l: less than 200 mg/dLBorderline High Cholesterol: 200-239 mg/dLHigh Cholesterol: greater than 239 mg/dL LDL Cholesterol Calculated 69 <100 mg/dL [facility] Comment:Desirable LDL: less than 100 mg/dLNear Optimal/Above Optimal LDL: 110- 129 mg/dLBorderline High LDL: 130-159 mg/dLHigh LDL: 160-189 mg/dLVery High LDL: greater than or equal to 190 mg/dL HDL Cholesterol 37(L) >40 mg/dL [facility] Comment:Desirable HDL: great er than 40 mg/dL Note: This HDL assay may give artificially low results in patients with liver disease. Blood Venous blood specimen / Unknown 03/03/2024 1:43 PM EDT 03/03/2024 3:58 PM EDT us Aby Vazquez MD LAB BLOOD ORDERABLES Final Resul t [facility] [address] [place] [address] [phone] * BI Mammogram Screening Tomosynthesis Bilateral (02/25/2024 3:03 PM EDT) Anatomical Region Laterality Modality Breast Bilateral Mammography 02/25/2024 3:03 PM EDT Narrative 03/21/2024 4:41 PM EDT [facility] [address] [place] [address] Mammography Report Signed Patient: Jazmine Max MR#: [id number] : 1965 Acct:[id number] Age/Sex: 58 / F ADM Date: 02/25/24 Loc: HO.MAMMO Attending Dr: Anne Talamantes DO Ordering Physician: Anne Talamantes DO Results: 1N egative Date of Service: 02/25/24 Follow Up: 1 Year From [facility] Mammogram Procedure(s): MM tomosynthesis screening BI Accession Number(s): [id number] cc: Anne Talamantes DO EXAMINATION: MM SCREENING [...] in OV> 03/21/24 1637 DD/ 1503 TD/TT: [address] Worker: Procedure Note Donotuseinterpreter, Image - 03/21/2024 [facility] [address] [place] [address] Mammography Report Signed Patient: Jazmine MaxMR#: [id number] : 1965Acct:[id number] Age/Sex: 58 / FADM Date: 02/25/24 Loc: JOHNATHAN.MAMMO Attending Dr: Anne Talamantes DO Ordering Physician: Anne Talamantesults: 1N egative Date of Service: 02/25/24Follow Up: 1 Year From [facility] Mammogram Procedure(s): MM tomosynthesis screening BI Accession Number(s): [id number] cc: Anne Talamantes DO EXAMINATION: MM SCREENING [...] in OV> 03/21/24 1637 DD/ 1503 TD/TT: [address] Worker: Anne Talamantes DO IMG BI PROCEDURES Final Resu lt * HPV mRNA E6/E7 REFLEX TO HPV 16, 18/45 (11/22/2020 12:00 AM EST) HPV nRNA E6/E7 Not Detected Not Detected [facility] Comment: Methodology: Internet Sales Director-Mediated Amplification This assay detects E6/E7 viral messenger RNA (mRNA) from 14 high-risk HPV types (16,18,31,33,35,39,45,51,52,56,58,59,66,68). The analytical performance characteristics of this assay have been determined by [employer]. The modifications have not been cleared or approved by the FDA. This assay has been validated pursuant to the CLIA regulations and is used for clinical purposes. For additional information, please refer to http://education.beRecruited/TUG276o6 (This link if provided for information/ educational purposes only.) 11/22/2020 Anne Talamantes DO LAB CYTOLOGY ORDERABLES Jolanta l Result [facility] [address] * Hm Colonoscopy (03/08/2019 11:49 AM EDT) Historical Provider HEALTH MAINTENANCE Final Result from Last 3 Months or Most Recently Relevant to Health Maintenance Insurance [facility] C3 Care Teams Blocker And Polisher Gold Wheel Relationship Specialty Start Date End Date Catherine Jon MD [address] [facility] [place] [address] PCP - General Family Medicine 09/21/24 Kyle Velez, RN [address] [facility] [place] [address] Registered Nurse Family Medicine 06/15/25 Isha Do 06/15/25 [facility] 07/26/24 Blaire Alcantara MD [facility] [address] [place] [address] [address] [place] [address] Medical Oncologist Hematology and Oncology 09/21/24 Jung Maxwell MD [facility] [address] [place] [address] [place] [address] Consulting Physician Urology 09/21/24 Bryant Ferro DO Consulting Physician Cardiology 09/21/24 [facility] [address] [place] [address] Consulting Physician Nephrology 09/21/24 Denilson Fay MD, PhD [facility] [address] [place] [address] Consulting Physician Ophthalmology 09/21/24 [employer] [facility] [address] [place] [address] Personal Care Services 09/21/24
--- OUTSIDE RECORDS SUMMARY | 2025-06-21 11:46 | XMS_ITS | Clinical Summary ---
Author Organization [facility] Address [address] [place] [address] Phone Care Team Providers Care Forging Engineer Name Role Phone Catherine Jon MD Primary Care Provider [phone] Allergies No known active allergies Medications sevelamer carbonate (RENVELA) 800 mg tablet Take 1 tablet (800 mg total) by mouth 3 (three) times a day with meals. Active doxycycline hyclate (VIBRA-TABS) 100 mg tablet Take 1 tablet (100 mg total) by mouth 2 (two) times a day. for 7 days 5 Active Eliquis 2.5 mg tablet TAKE 1 TABLET BY MOUTH TWICE DAILY IN THE MORNING AND IN THE EVENING 5 Active traMADoL (ULTRAM) 50 mg tablet TAKE 1 TABLET BY MOUTH TWICE DAILY NEEDED FOR PAIN (PAIN SCALE 7-10) Active hydrALAZINE (APRESOLINE) 10 mg tablet Take 1 tablet (10 mg total) by mouth 2 (two) times a day. Active amitriptyline (ELAVIL) 50 mg tablet Take 1 tablet (50 mg total) by mouth. 9 Active cinacalcet (SENSIPAR) 30 mg tablet TAKE 1 TABLET BY MOUTH EVERY EVENING (WEDNESDAY, WEDNESDAY, WEDNESDAY ONLY) Active ferrous sulfate 325 mg (65 mg elemental iron) tablet Take 1 tablet (325 mg total) by mouth. Active metoprolol tartrate (LOPRESSOR) 50 mg tablet TAKE 1 TABLET BY MOUTH TWICE DAILY IN THE MORNING AND IN THE EVENING Active rosuvastatin (CRESTOR) 40 mg tablet Take 1 tablet (40 mg total) by mouth. 9 Active Senna-S 8.6-50 mg per tablet Take 1 tablet by mouth. at bedtime. Active cholecalcifero l (VITAMIN D-3) 50 mcg (2,000 unit) tablet Take 0.5 tablets (1,000 Units total) by mouth daily. Active Lantus Solostar U-100 Insulin 100 unit/mL (3 mL) injection pen Inject 25 Units under the skin at bedtime. Active insulin lispro (HumaLOG KwikPen) 100 unit/mL injection pen INJECT 8-18 UNITS SUBCUTANEOUSLY THREE TIMES DAILY BEFORE BREAKFAST DIRECTED 9 Active Encounters Date Type Department Care Team Description 06/20/2025 9:29 AM EDT Hospital Encounter [facility] PET Scan [address] [place] [address] Malignant neoplasm of bladder, unspecified ([facility] V24, [facility] V28) 06/07/2025 1:30 PM EDT Consult General Surgery - [place] [address] [facility] [address] [place] [address] Freddie Campoverde MD End stage renal disease ([facility] V24, [facility] V28) from Last 3 Months Social History Tobacco Use Types Packs/Day Years Used Date Smoking Tobacco: Never Assessed Comments Unknown Sex and Gender Information Value Date Recorded Sex Assigned at Not on file Legal Sex Female 3:43 PM EDT Gender Identity Not on file Sexual Orientation Not on file Last Filed Vital Signs Vital Sign Reading Time Taken Comments Blood Pressure 182/83 06/07/2025 1:31 PM EDT Pulse 79 06/07/2025 1:31 PM EDT Temperature - - Respiratory Rate - - Oxygen Saturation - - Inhaled Oxygen Concentration - - Weight 61.5 kg (135 lb 8 oz) 06/07/2025 1:31 PM EDT Height - - Body Mass Index - - Plan of Treatment Health Maintenance Due Date Last Done Comments Breast Cancer Screening 1963 Diabetes: Annual Foot Exam 1973 Diabetes: Annual Retina Eye Exam 1973 Zoster Vaccines (1 of 2) 1982 Cervical Cancer Screening: Pap Smear 1984 RSV Immunization Adult Patients (1 - Risk 60-74 years 1-dose series) 2023 Colorectal Cancer Screening: Colonoscopy 07/19/2024 HIV Screening 07/19/2024 Hepatitis C Screening 07/19/2024 Social Influencers of Health Screening 07/19/2024 Depression Screening 09/27/2024 Diabetes: Annual Urine Albumin-Creatinine Ratio (uACR) 10/19/2024 Diabetes: Blood Sugar Control Test (HGBA1C) 03/22/2025 09/21/2024 COVID-19 Vaccine ( season) 2025 03/20/2022, 08/18/2021, 07/28/2021 Influenza Vaccine (#1) 2025 , 07/28/2021, 07/08/2017, Additional history exists Diabetes: Annual GFR (Glomerular Filtration Rate) 08/08/2025 08/08/2024, 08/07/2024, 08/01/2024 Hypertension/CHF/CAD Annual BMP Blood Test 08/08/2025 08/08/2024, 08/07/2024, 08/01/2024 Cholesterol Screening (Lipid Panel) 03/03/2029 03/03/2024 DTaP,Tdap,and Td Vaccines (5 - Td or Tdap) 03/22/2035 03/22/2025, 03/20/2022, [...] of bladder, unspecified (CMS/HCC V24, CMS/HCC V28) from Last 3 Months Results * PET CT Skull to Mid [...] Signed Date: 06/20/2025 15:16 ET Workstation ID: [id number] Transcribed By: Self Edit Transcribed Date: 06/20/2025 [...] Signed Date: 06/20/2025 15:16 ET Workstation ID: [id number] Transcribed By: Self Edit Transcribed Date: 06/20/2025 15:08 ET Calista Alcantara MD [facility] PROCEDURES Final Result from Last 3 Months Insurance MEDICAID - [place] Care Teams Forging Engineer Relationship Specialty Start Date End Date Catherine Jon MD [address] [place] [id number] PCP - General Family Medicine 06/07/25
--- OUTSIDE RECORDS SUMMARY | 2025-06-21 11:46 | XMS_ITS | Encounter Summary ---
Author Organization [employer] Address [address] [facility] 7t [place] [address] Care Team Providers Care Child Psychiatrist Name Role Phone Catherine Jon MD Primary Care Provider [phone] Kyle Velez RN Unavailable [phone] Isha Do Unavailable Encounter Details Date Type Department Care Team (Late st Contact Info) Description 03/02/2023 Orders Only C [facility] [address] [place] [address] Anne Gama LPN Social History Tobacco Use [...] on filedocumented in this encounter Care Teams Child Psychiatrist Relationship Specialty Start Date End Date Catherine Jon MD [address] [place] [address] PCP - General Family Medicine 09/21/24 Kyle Velez, RN [address] [place] [address] Registered Nurse Family Medicine 06/15/25 Isha Do 06/15/25 [facility] 07/26/24 Blaire Alcantara MD [facility] [address] [place] [address] Medical Oncologist Hematology and Oncology 09/21/24 Jung Maxwell MD [facility] [address] [place] [address] [place] [address] Consulting Physician Urology 09/21/24 Bryant Ferro DO Consulting Physician Cardiology 09/21/24 [facility] [address] [place] [address] [phone] Consulting Physician Nephrology 09/21/24 Denilson Fay MD, PhD [facility] [address] [place], [place] [phone] Consulting Physician Ophthalmology 09/21/24 [employer], WELDER BOILERMAKER Agency [address] [place] [address] Personal Care Services 09/21/24 documented as of this encounter
--- OUTSIDE RECORDS SUMMARY | 2025-06-21 11:46 | XMS_ITS | Encounter Summary ---
Author Organization [employer] Address [address] [facility] 7t [place] [address] Care Team Providers Care Patternmaker All Around Name Role Phone Catherine Jon MD Primary Care Provider Kyle Velez RN Unavailable [phone] Isha Do Unavailable Encounter Details Date Type Department Care Team (Late st Contact Info) Description 01/21/2023 Orders Only C [facility] [address] [place] [address] Anne Gama LPN Social History Tobacco Use [...] on filedocumented in this encounter Care Teams Patternmaker All Around Relationship Specialty Start Date End Date Catherine Jon MD [address] [place] [address] PCP - General Family Medicine 09/21/24 Kyle Velez, RN [address] [place] [address] Registered Nurse Family Medicine 06/15/25 Isha Do 06/15/25 [facility] 07/26/24 Blaire Alcantara MD [facility] [address] [place] [address] Medical Oncologist Hematology and Oncology 09/21/24 Jung Maxwell MD [facility] [address] [place] [address] [place] [address] Consulting Physician Urology 09/21/24 Bryant Ferro DO Consulting Physician Cardiology 09/21/24 [facility] [address] [place] [address] [phone] Consulting Physician Nephrology 09/21/24 Denilson Fay MD, PhD [facility] [address] [place], [place] [phone] Consulting Physician Ophthalmology 09/21/24 [employer], FORMING MACHINE OPERATOR Agency [address] [place] [address] Personal Care Services 09/21/24 documented as of this encounter
--- OUTSIDE RECORDS SUMMARY | 2025-06-21 11:46 | XMS_ITS | Clinical Summary ---
Author Organization [facility] Address [address] [place] [address] Phone Care Team Providers Care Traffic Workforce Representative Name Role Phone Anne Talamantes DO Primary Care Provider Unava ilable Allergies No known active allergies Medications amitriptyline (ELAVIL) 50 MG tablet Take 1 tablet by mouth 1 (one) time each day Active Cholecalciferol 50 MCG (1999 UT) capsule Take 1 capsule by mouth 1 [...] disorder due to type 2 diabetes mellitus <Unspecified DM Medication; Diabetic nephropathy> (HCC) Take 1 tablet (25 mg [...] Last Done Comments Breast Cancer Screening 1965 Colorectal Cancer Screening: Annual FOBT 2012 Colorectal Cancer Screening: Colonoscopy 2012 Colorectal Cancer Screening: Sigmoidoscopy 2012 Diabetes: Ophthalmology Exam 10/28/2020 Diabetes: Pedal Pulse Checked 10/28/2020 Diabetes: Sensory Foot Exam 10/28/2020 Diabetes: Visual Foot Exam 10/28/2020 Diabetes: Hemoglobin A1C 12/20/2024 024, 08/10/2022, 10/24/2021, Additional history exists Influenza Vaccine (#1) 2025 2, 07/28/2021, 07/08/2017, Additional history exists Hepatitis B Vaccine Aged Out 12/28/2014, 06/28/2013, 06/14/2002 No longer eligible based on patient's age to complete this topic Pneumococcal Vaccine: 50+ Years Completed 03/27/2024, 01/09/2010, 03/23/2002 Pneumococcal Vaccine: Peds (0 to 5 Years) and At-Risk Patients (6 to 49 Years) Discontinued 03/27/2024, 01/09/2010, 03/23/2002 Procedures Procedure Name Priority Date/Time Associated Diagnosis [...] 9.2 8.7 - 10.7 mg/dL eGFR Non-Afr Mongolian 14 Total Bilirubin 0.4 MG/DL Bilirubin Direct 0.1 ALT (SGPT) 13 U/L AST (SGOT) 12 U/L Alkaline Phosphatase 102 U/L Vitamin D, 25-OH, Total 38 ng/mL Hemoglobin A1C 7.6(A) 4.0 - 6.0 Alb/Creat Ratio, Ur 3,229 mg/g Creat Triglycerides 202 Cholesterol, Total 130 HDL 35 mg/dL LDL-Calculated 68 08/10/2022 Historical Provider LAB BLOOD ORDERABLES Jolanta l Result from Last 3 Months or Most Recently Relevant to Health Maintenance Insurance [place] Care Teams Traffic Workforce Representative Relationship Specialty Start Date End Date Anne Talamantes DO [address] [place] [address] PCP - General 10/07/20
--- OUTSIDE RECORDS SUMMARY | 2025-06-21 11:46 | XMS_ITS | Encounter Summary ---
Author Organization [employer] Address [address] [facility] 7t [place] [address] Care Team Providers Care Lithograph Operator Name Role Phone Catherine Jon MD Primary Care Provider [phone] Kyle Velez RN Unavailable [phone] Isha Do Unavailable Reason for Visit * Reason Comments Med Refill Encounter Details Date Type Department Care Team ([facility] st Contact Info) Description 11/08/2024 Refill [facility] MED[facility]INE [address] [place], [place] [phone] Anne Talamantes DO [address] [place] [address] Social History Tobacco Use Types Packs/Day Years [...] on filedocumented in this encounter Care Teams Lithograph Operator Relationship Specialty Start Date End Date Catherine Jon MD [address] [place] [address] PCP - General Family Medicine 09/21/24 Kyle Velez RN [address] [place] [address] Registered Nurse Family Medicine 06/15/25 Isha Do 06/15/25 [facility] 07/[facility]/24 Blaire Alcantara MD [facility] [address] [place] [address] [address] [place] [address] Medical Oncologist Hematology and Oncology 09/21/24 Jung Maxwell MD [facility] [address] [place] [address] [place] [address] Consulting Physician Urology 09/21/24 Bryant Ferro DO Consulting Physician Cardiology 09/21/24 [facility] [address] [place] [address] Consulting Physician Nephrology 09/21/24 Denilson Fay MD, PhD [facility] [address] [place], [place] [phone] Consulting Physician Ophthalmology 09/21/24 [employer], SENIOR PHYSICAL THERAPIST Agency [address] [place] [address] Personal Care Services 09/21/24 documented as of this encounter
--- OUTSIDE RECORDS SUMMARY | 2025-06-21 11:46 | XMS_ITS | Patient Health Record ---
Author Organization Estuardo Kenyon III, MD Address [address] [place] [address] Care Team Providers Care Environmental Technology Professor Name Role Phone YENI SALGUERO Primary Care Provider [phone] Dr[address] Estuardo Kenyon III [facility] [phone] Allergies Allergen (clinical drug ingredient) Drug/Non Drug [...] EVENING Oral Active Vitamin D3 50 MCG (2000 [...] Problem Status W/U Status Risk Notes Problem 024540485 Anemia in chronic kidney disease (D63.1) Active confirmed Her blood pressure is currently 139/69 and no change in her regimen as needed. 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 Problem 848640173 group home (current) use of insulin (Z79.4) Active confirmed Problem 025351598 Pacemaker (Z95.0) Active confirmed Problem 253891745 History of adenomatous polyp of colon (Z86.010) Active confirmed Problem 22789615 Hypertension, unspecified type (I10) Active confirmed Problem 59030575 Chronic renal failure, stage 4 (severe) (N18.4) Active confirmed We have mad e the porter bath aware of the situation. The fistula in the left upper lung appears to be maturing well. The dialysis catheter and right upper chest wall is intact and seems to function normally. Problem 439810421 Malignant neoplasm of urinary bladder, unspecified site (C67.9) Active confirmed The tumor appears to be widespread. We will need to review the images with the radiologist to clarify the nature of the mass in or I can tellnear the right kidney. Problem 41661592 Cardiomyopathy, unspecified type (I42.9) Active confirmed Problem 626421506723479120 Progressive macular hypomelanosis (L81.6) Active confirmed Problem 020953808 AVF (arteriovenous fistula) (I77.0) Active confirmed Problem 22138652 End-stage renal disease (N18.6) Active confirmed Problem 02625970 Type 2 diabetes mellitus with diabetic nephropathy, unspecified whether ocean transportation intermediary insulin use (E11.21) Active confirmed Diabetes currently seems well controlled. Plan Of Treatment No Information Insurance Providers Payer Name Payer Address Payer Phone Subscriber Number Group Number Insured Name Patient Relationship to Insured Coverage Start Date Coverage End Date MED[place]ID [place] [address] KASSANDRA GONZALEZ [id number] Jazmine Max Self - patient is the insured
--- OUTSIDE RECORDS SUMMARY | 2025-06-21 11:46 | XMS_ITS | Encounter Summary ---
Author Organization [employer] Address [address] [facility] 7t [place] [address] Care Team Providers Care Hammer Operator Name Role Phone Catherine Jon MD Primary Care Provider [phone] Kyle Velez RN Unavailable [phone] Isha Do Unavailable Reason for Visit * Reason Comments Med Refill Encounter Details Date Type Department Care Team ([facility] st Contact Info) Description 09/18/[address] [facility] MEDICINE [address] [place], [place] [phone] Anne Talamantes DO [address] [place] [address] Social History Tobacco Use Types Packs/Day Years [...] on filedocumented in this encounter Care Teams Hammer Operator Relationship Specialty Start Date End Date Catherine Jon MD [address] [place] [address] PCP - General Family Medicine 09/21/24 Kyle Velez RN [address] [place] [address] Registered Nurse Family Medicine 06/15/25 Isha Do 06/15/25 [facility] Blaire Alcantara MD [facility] Center [address] [place] [address] [address] [place] [address] Medical Oncologist Hematology and Oncology 09/21/24 Jung Maxwell MD [facility]rology Center [address] [place] [address] [place] [address] Consulting Physician Urology 09/21/24 Bryant Ferro DO Consulting Physician Cardiology 09/21/24 [facility] [address] [place] [address] Consulting Physician Nephrology 09/21/24 Denilson Fay MD, PhD [facility] [address] [place], [place] [phone] Consulting Physician Ophthalmology 09/21/24 [employer], BRAND DESIGNER Agency [address] [place] [address] Personal Care Services 09/21/24 documented as of this encounter
== END 2025-06-21 11:15 | disposition home or self-care (01) ==
LOC: HO.ENCR 09:50
PROVIDERS: PCP Internal Medicine; Visit Provider Internal Medicine
DX: E11.9 Type 2 diabetes mellitus without complications (principal); Z79.4 Long term (current) use of insulin

== ENCOUNTER → 2025-06-21 09:49 | Outpatient (BNVA) | payer MEDICAID, SELFPAY | PROVIDERS: PCP Internal Medicine; Visit Provider Internal Medicine | DX: E11.9 Type 2 diabetes mellitus without complications (principal); Z79.4 Long term (current) use of insulin | CPT/HCPCS: 82947; 83036; 99212 ==

== ENCOUNTER → 2025-06-27 23:59 | Outpatient (BNV) | payer MEDICAID, SELFPAY | PROVIDERS: PCP Internal Medicine; Visit Provider Internal Medicine Nephrology | DX: N18.6 End stage renal disease (principal) | CPT/HCPCS: 90961 ==

== ENCOUNTER 2025-07-27 10:10 | Outpatient (AMB) | payer MEDICAID, SELFPAY ==
--- OUTSIDE RECORDS SUMMARY | 2024-03-16 07:15 | XMS_ITS ---
Author Organization Estuardo Kenyon III, MD Address [address] [place] [address] [place] [address] Care Team Providers Care Director Of Veterans Affairs Name Role Phone YENI SALGUERO Primary Care Provider Dr. Estuardo Kenyon III Unavailable [phone] Allergies Allergen (clinical drug ingredient) Drug/Non Drug [...] Provider Specialty Oncology General Notes Esther Hernandez SLIP MAKER 02/26 02:14:17 PM EDT > pt dtr Olga called given appt information and ref/progress notes and all testing faxed to Dr Zhou at [phone] Referral Priority Routine Referral Appointment Date 03/17/2024 [...] Problem Status W/U Status Risk Notes Problem 06423045 Cardiomyopathy, unspecified type (I42.9) Active confirmed Problem 03540337 Chronic renal failure, stage 4 (severe) (N18.4) Active confirmed We have mad e the chemist intern aware of the situation. The fistula in the left upper lung appears to be maturing well. The dialysis catheter and right upper chest wall is intact and seems to function normally. Problem 75490987 Hypertension, unspecified type (I10) Active confirmed Problem [id number] Progressive macular hypomelanosis (L81.6) Active confirmed Problem 000059857 AVF (arteriovenous fistula) (I77.0) Active confirmed Problem 75292072 End-stage renal disease (N18.6) Active confirmed Problem 128758766 Pacemaker (Z95.0) Active confirmed Problem 539323046 History of adenomatous polyp of colon (Z86.010) Active confirmed Problem 924228684 Type 2 diabetes mellitus with diabetic chronic kidney disease (E11.22) Active confirmed Problem 587465336 Chronic kidney disease, stage 5 (N18.5) Active confirmed Problem 259743917 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 Problem 65442626 Type 2 diabetes mellitus with diabetic nephropathy, unspecified whether lobsterman insulin use (E11.21) Active confirmed Diabetes currently seems well controlled. Problem 66309280 Secondary hyperparathyroid ism of renal origin (N25.81) Active confirmed She is in end-stage renal disease. Problem 394156734 Malignant neoplasm of urinary bladder, unspecified site [...] Date Provider Diagnosis Estuardo Kenyon III, MD [address] [place] [address] [place] [address] 03/16/2024 Estuardo Kenyon Chronic renal failur e, stage 4 (severe) N18.4 ; Malignant neoplasm of urinary bladder, unspecified site C67.9 ; Type 2 diabetes mellitus with diabetic nephropathy, unspecified whether lobsterman insulin use E11.21 ; Secondary hyperparathyroidism of [...] (ICD-10 - N18.4) We have made the chemist intern aware of the situation. The fistula in [...] apoorva itus with diabetic nephropathy, unspecified whether long-term insulin use (ICD-10 - E11.21) Diabetes currently [...] * Jazmine RILEYDOB: [birth year] (58 yo F)Acc No.[id number]:03/16/2024 Patient: Maty Reynacelia Provider: Evaristo Kenyon MD :1965 A ge:58 Y S ex:Female Date:03/16/2024 Address:[address] [place] [address] [id number] Pcp:YENI SALGUERO Subjective: * Chief Complaints: * [...] yet as it is still healing. Her chemist intern is Dr. Martinez. She receives primary care at the [facility]. A CT scan of the abdomen at the [facility] recently showed a large mass in [...] have referred her to medical oncology at [facility] for further staging and definitive treatment. [...] - N18.4 (Primary), We have made the chemist intern aware of the situation. The fistula in [...] diabetes mellitus with diabetic nephropathy, unspecified whether lobsterman insulin use - E11.21, Diabetes currently seems [...] 03/16/2024 Generated for Printi ng/Fajossueg/eTransmitting on: 1 11:30 AM EDT History and Physical Notes * [...]
--- NOTE | 2025-07-27 10:40 | A.OFFVIS_ITS ---
Intake Visit Reasons: cysto Intake Note: Patient is Present for Cystoscopy Urology Med: Not taking oxybutynin Antibiotic Allergy: None Blood Thinner: Bubba Loredo URO- G Disposable Cystoscope lot:[id number] exp:03/05/2028 Punch Press Operator Required: No Hr Business Partner Consultant: Hr Business Partner Consultant Present Accompanied by: Other Relationship Allergies No Known Allergies (No Known Allergies*) Allergy (Verified 07/27/25 10:49) HPI Comments Details: Jazmine is a pleasant Kyrgyz-speaking female. She is a patient of . She is seen for the following urologic conditions - high-grade invasive bladder cancer - nephrolithiasis Continue Q six-month bladder check 07/21 check cystoscopy - mild microscopic hematuria, low volume urination. No definitive lesions seen within bladder. 06/[address] [facility] on 06/20/2025 showed no evidence of metastatic disease 10/21 PET scan performed in September 2024 showed complete resolution of FDG activity. She has had excellent response to treatment High-grade, invasive bladder cancer superficial - but lymphadenopathy Initial presentation metastatic disease with lymphadenopathy TURBT 03/20 T1HG Imaging - CT 07/20 no stones, decreased retroperitoneal lymphadenopathy She underwent core needle biopsy of right retroperitoneal mass on 04/18/2024 which revealed poorly differentiated carcinoma consistent with patient's known urothelial carcinoma. 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 TMB 21.6 M/MB 95th percentile, MSI stable. FDA approved therapies, medina FGFR inhibitor, Erdafitinib and pembrolizumab PET scan performed 03/2024 showed FDG avid bilateral retroperitoneal lymphadenopathy. Lytic lesion on T12 favored to represent Schmorl's node rather than metastatic lesion. No FDG activity. No other areas of FDG activity. [facility] Medical History ESRD (end stage renal disease) on dialysis Mass of bladder Bladder mass Pacemaker History of adenomatous polyp of colon Cardiomyopathy Chronic kidney disease, stage 4 (severe) Hypertension Type 2 diabetes mellitus with diabetic nephropathy Surgical History History of insertion of tunneled central venous catheter (CVC) with port History of bladder surgery History of ankle surgery History of biopsy Family History Father No problems noted. Mother No problems noted. Social History Household Members: Children Housing: House Are you a primary child care to a significant other at home: No Do you presently have visiting nurse or other home services: No Alcohol intake: never Patient Tobacco Use Status: Never used Tobacco service: No Current occupational status: disabled Gender identity: Female Review of Systems Const Denies chills and Denies fever(s) Card Reports no additional complaints and Denies syncope Resp Denies cough GI Denies abdominal pain and Denies heartburn Reports as per HPI and Denies change in libido Neuro Denies syncope Psych Denies change in libido Endo Denies change in libido Physical Exam Const General: cooperative, healthy appearing, comfortable and no acute distress Orientation/consciousness: patient oriented x3 HEENT Face and sinus: Yes normal facial exam Mouth: moist mucous membranes Neck Neck: Yes normal visual inspection, Yes full ROM and Yes trachea midline Chest Chest palpation & inspection: normal inspection of the chest Resp Effort & Inspection: normal respiratory effort, able to speak in complete sentences and no respiratory distress GI Inspection: Yes normal to inspection Back/Spine/Pelvis Cervical Spine: normal cervical lordosis Thoracic/Lumbar Spine: thoracic and lumbar spine normal to inspection Skin General skin exam: no rashes or lesions noted Neuro General: patient oriented x3, gait normal, tone normal and moves all extremities Extrem General: Yes normal to inspection and Yes capillary refill normal Office Procedures Cystoscopy Consent Discussed risk and benefit or proposed procedure with the patient. Information consent for procedure given to the patient. Discussed technical aspects, risks, benefits and alternatives in full. Addressed all of the patient's questions and concerns regarding the procedure. The patient demonstrated knowledge and understanding. They wish to proceed with this procedure. Preparation The patient was prepped in the usual manner. A solution spec was present and in the room. Genitalia was prepped with betadine solution in a sterile manner. Lidocaine Jelly 2% was placed into the urethra and 16Fr flexible Olympus cystoscope was inserted into the meatus after adequate lubrication. Procedure Meatus atrophic urethral opening Urethra atrophic Bladder examination with retroflexion of cystoscope Bladder Orifices normal shape and position Trigone normal Bladder Capacity Normal Trabeculations Grade 0 Cellule Formation None Diverticulum Formation None Mucosal Erythema mild mucosal erythema presumed irritation Bladder Tumor None [id number] DISPOSABLE SCOPE URO-G FLEXIBLE SCOPE Procedure code (CPT) selection complete Office Meds lidocaine HCl 2 % mucosal jelly in applicator Performing Provider: Jung Maxwell MD [facility] Administered by: Yane Cummins RN on 07/27/25 10:56 Dose Route Admin Location Dispensed Lot Number Expiration Date NDC Cook Fish Eggs 10 mL intra-urethral 10 mL nitrofurantoin monohydrate/macrocrystals 100 mg capsule Performing Provider: Jung Maxwell MD Performing Location: [facility] Administered by: Yane Cummins RN on 07/27/25 10:56 Dose Route Admin Location Dispensed Lot Number Expiration Date NDC Cook Fish Eggs 100 mg PO 1 cap Assessment & Plan Assessment & Plan (1) Bladder cancer: Code(s): C67.9 - Malignant neoplasm of bladder, unspecified Category: Medical Plan Six-month follow-up check cystoscopy Orders: Orders AMB Cystoscopy Today C67.9 - Malignant neoplasm of bladder, unspecified Patient Instructions: This note is constructed using voice recognition software. While every effort has been made to ensure accuracy bulkhead carpenter errors may have been included. Imaging studies, laboratory and physical exam results were discussed and reviewed in detail. No major barriers to patient understanding were identified. An opportunity to ask questions regarding the treatment plan was provided. All questions were answered. The patient expressed understanding and agreement with the above treatment plan. The patient is aware they should contact our office by phone for worsening of their current condition or the appearance of new urologic symptoms. Compliance is encouraged with any medications and followup testing that is ordered. It is a privilege to participate in the urologic care of your patient. If you have any questions or concerns regarding treatment for the above conditions, or other urologic issues, please do not hesitate to contact me. The office telephone contact is [phone]. Sincerely, Dr Jung Maxwell MD, [facility] - Urology Compassionate Specialist Care for the Genitourinary System Coding Level of Care Code Est Pt Level 3 (21133) Complex EM visit Add On G2211 Diagnoses Bladder cancer C67.9 CPT Codes Cystoscopy - CPT: [id number] ([id number])
--- OUTSIDE RECORDS SUMMARY | 2025-07-27 11:29 | XMS_ITS | Encounter Summary ---
Author Organization [employer] Address [address] [facility] 7t [place] [address] Care Team Providers Care Payroll Bookkeeper Name Role Phone Catherine Jon MD Primary Care Provider [phone] Kyle Velez RN Unavailable [phone] Isha Do Unavailable Reason for Visit * Reason Onset Date Comments Call Back Request 11/23/2024 Encounter Details Date Type Department Care Team ([facility] st Contact Info) Description 11/23/2024 Telephone [facility] [address] [place], [place] [phone] Catherine Jon MD [address] [place], [place] [phone] Call Back Request Social History Tobacco Use [...] encounter Miscellaneous Notes * Telephone Encounter - Manjeetbc LongoriaMoreno - 11/23/2024 1:38 PM EST TC from pt requesting a call back from [employer]. Contact pt at [phone] documented in this encounter Plan of Treatment Upcoming Encounters Date Type Department Care Team (Late st Contact Info) Description 08/02/2025 1:45 PM EST Office Visit [facility] [address] [place] [address] Catherine Jon MD [address] [place] [address] documented as of this encounter Visit Diagnoses Not on filedocumented in this encounter Care Teams Payroll Bookkeeper Relationship Specialty Start Date End Date Catherine Jon MD [address] [place] [address] PCP - General Family Medicine 09/21/24 Kyle Velez, RN [address] [place] [address] Registered Nurse Family Medicine 06/15/25 Isha oD 06/15/25 [facility] 07/26/24 Blaire Alcantara MD [facility] [address] [place] [address] [address] [place] [address] Medical Oncologist Hematology and Oncology 09/21/24 Jung Maxwell MD [facility] [address] [place] [address] [place] [address] Consulting Physician Urology 09/21/24 Bryant Ferro DO Consulting Physician Cardiology 09/21/24 [facility] [address] [place] [address] Consulting Physician Nephrology 09/21/24 Denilson Fay MD, PhD [facility] [address] [place] [address] Consulting Physician Ophthalmology 09/21/24 [employer], COMMUNITY RELATIONS ADVISOR Agency [address] [place], [place] [phone] Personal Care Services 09/21/24 documented as of this encounter
--- OUTSIDE RECORDS SUMMARY | 2025-07-27 11:29 | XMS_ITS | Encounter Summary ---
Author Organization [facility] Address [address] [facility] 7t h Floor [place] [id number] Care Team Providers Care Instrument Lens Inspector Name Role Phone Catherine Jon MD Primary Care Provider [phone] Kyle Velez RN Unavailable [phone] Isha Do Unavailable Encounter Details Date Type Department Care Team (Late st Contact Info) Description 09/30/2022 Orders Only [facility] MED & PEDS [address] [place] [address] Anne Gama LPN Social History Tobacco Use Types Packs/Day Years Used Date Smoking Tobacco: Never Assessed Comments Unknown Sex and Gender Information Value Date Recorded Sex Assigned at Female 07/27/2022 10:16 AM EDT Legal Sex Female 10:16 AM EDT Gender Identity Female 07/27/2022 10:16 AM EDT Sexual Orientation Straight 07/27/2022 10 :16 AM EDT documented as of this encounter Plan of Treatment Upcoming Encounters Date Type Department Care Team (Late st Contact Info) Description 08/02/2025 1:45 PM EST Office Visit [facility] MED & PEDS [address] [place] [address] Catherine Jon MD [address] [place] [address] documented as of this encounter Visit Diagnoses Not on filedocumented in this encounter Care Teams Instrument Lens Inspector Relationship Specialty Start Date End Date Catherine Jon MD [address] [place] [address] PCP - General Family Medicine 09/21/24 Kyle Velez, RN [address] [place] [address] Registered Nurse Family Medicine 06/15/25 Isha Do 06/15/25 [facility] Blaire Alcantara MD [facility] [address] [place] [address] Medical Oncologist Hematology and Oncology 09/21/24 Jung Maxwell MD [facility] [address] [place] [address] Consulting Physician Urology 09/21/24 Bryant Ferro DO Consulting Physician Cardiology 09/21/24 [facility] [address] [place] [address] Consulting Physician Nephrology 09/21/24 Denilson Fay MD, PhD [facility] [address] [place] [address] Consulting Physician Ophthalmology 09/21/24 [employer], MOLDING MACHINE OPERATOR HELPER Agency [address] [place] [address] Personal Care Services 09/21/24 documented as of this encounter
--- OUTSIDE RECORDS SUMMARY | 2025-07-27 11:29 | XMS_ITS | Encounter Summary ---
Author Organization [employer] Address [address] [facility] 7t [place] [address] Care Team Providers Care Credentialer Name Role Phone Catherine Jon MD Primary Care Provider [phone] Kyle Velez RN Unavailable [phone] Isha Do Unavailable Reason for Visit * Reason Onset Date Comments Change PCP 08/03/2024 Encounter Details Date Type Department Care Team ([facility] st Contact Info) Description 08/03/2024 Telephone [facility] [address] [place], [place] [phone] Anne Talamantes DO [address] [place], [place] [phone] Change PCP Social History Tobacco Use Types [...] from pt stating she has moved to [place] and is requesting to change locations due to convince. If any questions you can contact pt at [phone]. (Hebrew Speaker) documented in this encounter Plan of Treatment Upcoming Encounters Date Type Department Care Team ([facility] st Contact Info) Description 08/02/2025 1:45 PM EST Office Visit [facility] PEDS [address] [place] [address] Catherine Jon MD [address] [place] [address] documented as of this encounter Visit Diagnoses Not on filedocumented in this encounter Care Teams Credentialer Relationship Specialty Start Date End Date Catherine Jon MD [address] [place] [address] PCP - General Family Medicine 09/21/24 Kyle Velez, RN [address] [place] [address] Registered Nurse Family Medicine 06/15/25 Isha Do 06/15/25 [facility] 07/26/24 Blaire Alcantara MD [facility] On[facility] Center [address] [place] [address], [place] [address] Medical Oncologist Hematology and Oncology 09/21/24 Jung Maxwell MD [facility] Urology Center [address] [place] [address] Dr Chris [address] [place] [address] Consulting Physician Urology 09/21/24 Bryant Ferro DO Consulting Physician Cardiology 09/21/24 [facility] [address] [place] [address] Consulting Physician Nephrology 09/21/24 Denilson Fay MD, PhD [facility] 180 [place] [address] Consulting Physician Ophthalmology 09/21/24 [employer], DISTRIBUTION OPERATION SUPERVISOR Agency [address] [place] [address] Personal Care Services 09/21/24 documented as of this encounter
--- OUTSIDE RECORDS SUMMARY | 2025-07-27 11:29 | XMS_ITS | Encounter Summary ---
Author Organization [employer] Address [address] [facility] 7t [place] [address] Care Team Providers Care Event Mgr Name Role Phone Catherine Jon MD Primary Care Provider [phone] Kyle Velez RN Unavailable [phone] Isha Do Unavailable Encounter Details Date Type Department Care Team (Late st Contact Info) Description 09/24/2022 Orders Only [facility] [address] [place] [address] Lydia Haq RN Social History Tobacco Use [...] Description 08/02/2025 1:45 PM EST Office Visit [facility] PEDS 505 [place] [address] Catherine Jon MD 505 [place] [address] documented as of this encounter Visit Diagnoses Not on filedocumented in this encounter Care Teams Event Mgr Relationship Specialty Start Date End Date Catherine Jon MD [address] [place] [address] PCP - General Family Medicine 09/21/24 Kyle Velez, RN [address] [facility] [address] Registered Nurse Family Medicine 06/15/25 Isha Do 06/15/25 [facility] Blaire Alcantara MD [facility] Center [address] [place] [address] Medical Oncologist Hematology and Oncology 09/21/24 Jung Maxwell MD [facility] [address] [place] [address] Consulting Physician Urology 09/21/24 Bryant Ferro DO Consulting Physician Cardiology 09/21/24 [facility] [address] [place] [address] Consulting Physician Nephrology 09/21/24 Denilson Fay MD, PhD [facility] [address] [place] [address] Consulting Physician Ophthalmology 09/21/24 [employer], RETAIL GENERAL MANAGER Agency [address] [place] [address] Personal Care Services 09/21/24 documented as of this encounter
--- OUTSIDE RECORDS SUMMARY | 2025-07-27 11:29 | XMS_ITS ---
Author Organization [employer] Address [address] [facility] 7t [place] [address] Care Team Providers Care Desulfurizer Machine Name Role Phone Catherine Jon MD Primary Care Provider [phone] Kyle Velez RN Unavailable [phone] Isha Do Unavailable CM Complex Status:Outreach In Progress (Enrolling) Start date:06/15/2025 Enrollment reason:ADT Feed Overview ED- Pt went to [facility] ED on 06/14/25. Case Team Name Relationship Phone Kyle Velez RN(Responsible Staff) Registered Kiya springer [phone] Continued Care and Services Coordination
--- OUTSIDE RECORDS SUMMARY | 2025-07-27 11:29 | XMS_ITS ---
Author Organization [employer] Address [address] [facility] 7t [place] [address] Care Team Providers Care Arabic Professor Name Role Phone Catherine Jon MD Primary Care Provider [phone] Kyle Velez RN Unavailable [phone] Isha Do Unavailable CHW Complex Status:Outreach In Progress (Enrolling) Start date:06/15/2025 Enrollment reason:ADT Feed Overview ED- Pt went to [facility] ED on 06/14/25. Case Team Name Relationship Phone Isha Do(Responsible Staff) Continued Care and Services Coordination
--- OUTSIDE RECORDS SUMMARY | 2025-07-27 11:29 | XMS_ITS | Encounter Summary ---
Author Organization [employer] Address [address] [facility] 7t [place] [address] Care Team Providers Care Coal Washer Tender Name Role Phone Catherine Jon MD Primary Care Provider [phone] Kyle Velez RN Unavailable [phone] Isha Do Unavailable Encounter Details Date Type Department Care Team (Late st Contact Info) Description 11/23/2022 Orders Only [facility] [address] [place] [address] Ana Cristina Haq LPN Social History Tobacco [...] Description 08/02/2025 1:45 PM EST Office Visit [facility] [address] [place] [address] Catherine Jon MD [address] [place] [address] documented as of this encounter Visit Diagnoses Not on filedocumented in this encounter Care Teams Coal Washer Tender Relationship Specialty Start Date End Date Catherine Jon MD [address] [place] [address] PCP - General Family Medicine 09/21/24 Kyle Velez, RN [address] [place] [address] Registered Nurse Family Medicine 06/15/25 Isha Do 06/15/25 [facility] Blaire Alcantara MD [facility] On[facility] Center [address] [place] [address] Medical Oncologist Hematology and Oncology 09/21/24 Jung Maxwell MD [facility]rology Center [address] [place] [address] [place] [address] Consulting Physician Urology 09/21/24 Bryant Ferro DO Consulting Physician Cardiology 09/21/24 [facility] [address] [place] [address] Consulting Physician Nephrology 09/21/24 Denilson Fay MD, PhD [facility] [address] [place] [address] Consulting Physician Ophthalmology 09/21/24 [employer], STRIP DEBURRER Agency [address] [place] [address] Personal Care Services 09/21/24 documented as of this encounter
--- OUTSIDE RECORDS SUMMARY | 2025-07-27 11:30 | XMS_ITS | Encounter Summary ---
Author Organization [employer] Address [address] [facility] 7t h Floor [place] [id number] Care Team Providers Care Diamond Grinder Name Role Phone Catherine Jon MD Primary Care Provider [phone] Kyle Velez RN Unavailable [phone] Isha Do Unavailable Reason for Visit * Reason Onset Date Comments Hospital Follow-up 04/11/2024 Encounter Details Date Type Department Care Team (Late st Contact Info) Description 04/11/2024 Telephone [facility] MEDICINE [address] [place], [place] [phone] Anne Talamantes DO [address] [place] [address] Hospital Follow-up Social History Tobacco Use Types [...] from pt requesting a HDF appt. Hospital: [facility] Date of admission: 04/07 Discharge date: 04/11 Diagnosed: Kidney Failure documented in this encounter Plan of Treatment Upcoming Encounters Date Type Department Care Team (Late Contact Info) Description 08/02/2025 1:45 PM EST Office Visit [facility] MED & PEDS [address] [place] [address] Catherine Jon MD [address] [place], [place] documented as of this encounter Visit Diagnoses Not on filedocumented in this encounter Care Teams Diamond Grinder Relationship Specialty Start Date End Date Catherine Jon MD [address] [place], [place] PCP - General Family Medicine 09/21/24 Kyle Velez, TYESHA [address] [place], [place] Registered Nurse Family Medicine 06/15/25 Isha Do 06/15/25 [facility] 07/26/24 Blaire Alcantara MD [facility] Oncology Center [address] [place] [address] [address] [place] [address] Medical Oncologist Hematology and Oncology 09/21/24 Jung Maxwell MD [facility] Urology Center [address] [place] [address] [place] [address] Consulting Physician Urology 09/21/24 Bryant Ferro DO Consulting Physician Cardiology 09/21/24 [facility] [address] [place] [address] Consulting Physician Nephrology 09/21/24 Denilson Fay MD, PhD [facility] [address] [place] [address] Consulting Physician Ophthalmology 09/21/24 [employer], [employer] AX CONSULTANT Agency [address] [facility] [place], [place] [phone] Personal Care Services 09/21/24 documented as of this encounter
--- OUTSIDE RECORDS SUMMARY | 2025-07-27 11:30 | XMS_ITS | Encounter Summary ---
Author Organization [employer] [facility] Address [address] [facility] 7t [place] [address] Care Team Providers Care Manager Case Name Role Phone Catherine Jon MD Primary Care Provider [phone] Kyle Velez RN Unavailable [phone] Isha Do Unavailable Encounter Details Date Type Department Care Team (Late st Contact Info) Description 01/06/2024 Orders Only [facility] MEDICINE [address] [place], [place] [id number] Provider, MD Karoline Social History Tobacco Use [...] Description 08/02/2025 1:45 PM EST Office Visit [facility] MED & PEDS [address] [place] [address] Catherine Jon MD 505 [place] [address] documented as of this encounter Procedures Procedure Name Priority Date/Time Associated Diagnosis Comments HM COLONOSCOPY Routine 03/08/2019 11:49 AM EDT documented in this encounter Results * Hm Colonoscopy (03/08/2019 11:49 AM EDT) Historical Provider HEALTH MAINTENANCE Final Result documented in this encounter Visit Diagnoses Not on filedocumented in this encounter Care Teams Manager Case Relationship Specialty Start Date End Date Catherine Jon MD 505 [place] [address] PCP - General Family Medicine 09/21/24 Kyle Velez, RN 505 [place] [address] Registered Nurse Family Medicine 06/15/25 Isha Do 06/15/25 [facility] Blaire Alcantara MD [facility] [address] [place] [address] [address] [place] [address] Medical Oncologist Hematology and Oncology 09/21/24 Jung Maxwell MD [facility] [address] [place] [address] [facility] [address] [place] [address] Consulting Physician Urology 09/21/24 Bryant Ferro DO Consulting Physician Cardiology 09/21/24 [facility] [address] [place] [address] Consulting Physician Nephrology 09/21/24 Denilson Fay MD, PhD [facility] [address] [place] [address] Consulting Physician Ophthalmology 09/21/24 [employer], CADD MANAGER Agency [address] [place] [address] Personal Care Services 09/21/24 documented as of this encounter
--- OUTSIDE RECORDS SUMMARY | 2025-07-27 11:30 | XMS_ITS | Patient Health Record ---
Author Organization Estuardo Kenyon III, MD Address [address] [place] [address] Care Team Providers Care Felt Hanger Name Role Phone YENI SALGUERO Primary Care Provider Dr. Estuardo Kenyon III [facility] [phone] Allergies Allergen (clinical drug ingredient) Drug/Non Drug [...] Problem Status W/U Status Risk Notes Problem 637284566 Anemia in chronic kidney disease (D63.1) Active confirmed Her blood pressure is currently 139/69 and no change in her regimen as needed. 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 Problem 452227215 halfway (current) use of insulin (Z79.4) Active confirmed Problem 830040333 Pacemaker (Z95.0) Active confirmed Problem 101416935 History of adenomatous polyp of colon (Z86.010) Active confirmed Problem 57284870 Hypertension, unspecified type (I10) Active confirmed Problem 59053181 Chronic renal failure, stage 4 (severe) (N18.4) Active confirmed We have mad e the nurse recruiter aware of the situation. The fistula in the left upper lung appears to be maturing well. The dialysis catheter and right upper chest wall is intact and seems to function normally. Problem 985088449 Malignant neoplasm of urinary bladder, unspecified site (C67.9) Active confirmed The tumor appears to be widespread. We will need to review the images with the radiologist to clarify the nature of the mass in or I can tellnear the right kidney. 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 Plan Of Treatment No Information Insurance Providers Payer Name Payer Address Payer Phone Subscriber Number Group Number Insured Name Patient Relationship to Insured Coverage Start Date Coverage End Date [place] [address] KASSANDRA GONZALEZ [id number] Jazmine Max Self - patient is the insured
--- OUTSIDE RECORDS SUMMARY | 2025-07-27 11:30 | XMS_ITS | Encounter Summary ---
Author Organization [employer] Address [address] [facility] 7t [place] [address] Care Team Providers Care Second Class Welder Name Role Phone Catherine Jon MD Primary Care Provider Kyle Velez RN Unavailable [phone] Isha Do Unavailable Reason for Visit * Reason Comments Care Coordination [id number] Do telephone call outreach Encounter Details Date Type Department Care Team (Latest Contact Info) Description 07/27/2025 Patient Outreach [facility] MEDICINE [address] [place] [address] Catherine Jon MD [address] [place], [place] [id number] Care Coordination ([id number] Do telephone call outreach) Social History Tobacco Use Types Packs/Day Years [...] AM EDT documented as of this encounter Progress Notes * Isha Do - 07/27/2025 9:59 AM EDT CHW Isha Do, placed outbound call to patient in regards to offer services. CHW introducing herself from [facility] CM Department with CHW's name, department and direct contact number requesting call back. Will re-attempt to contact within 5 days. and address not confirmed. documented in this encounter Plan of Treatment Upcoming Encounters Date Type Department Care Team ([facility] st Contact Info) Description 08/02/2025 1:45 PM EST Office Visit [facility] CH[facility] MED & PEDS 505 [place] [address] Catherine Jon MD 505 [place] [address] documented as of this encounter Visit Diagnoses Not on filedocumented in this encounter Care Teams Second Class Welder Relationship Specialty Start Date End Date Catherine Jon MD 505 [place] [address] PCP - General Family Medicine 09/21/24 Kyle Velez, TYESHA 505 [place] [address] Registered Nurse Family Medicine 06/15/25 Isha Do 06/15/25 [facility] 07/26/24 Blaire Alcantara MD [facility] On[facility] [address] [place] [address] Medical Oncologist Hematology and Oncology 09/21/24 Jung Maxwell MD [facility] [address] [place] [address] [place] [address] Consulting Physician Urology 09/21/24 Bryant Ferro DO Consulting Physician Cardiology 09/21/24 [facility] [address] [place] [address] Consulting Physician Nephrology 09/21/24 Denilson Fay MD, PhD [facility] [address] [place] [address] Consulting Physician Ophthalmology 09/21/24 [employer], YARROW GATHERER Agency [address] [place] [address] Personal Care Services 09/21/24 documented as of this encounter
--- OUTSIDE RECORDS SUMMARY | 2025-07-27 11:30 | XMS_ITS | Encounter Summary ---
Author Organization [facility] Address [address] [facility] 7t h Floor [place] [phone] Care Team Providers Care Turbo Generator Oiler Name Role Phone Catherine Jon MD Primary Care Provider [phone] Kyle Velez RN Unavailable [phone] Isha Do Unavailable Encounter Details Date Type Department Care Team (Late st Contact Info) Description 03/02/2023 Orders Only [facility] MED & PEDS [address] [place] [address] Anne Gama LPN Social History Tobacco Use [...] Description 08/02/2025 1:45 PM EST Office Visit [facility] MED & PEDS 505 [place] [address] Catherine Jon MD 505 [place] [address] documented as of this encounter Visit Diagnoses Not on filedocumented in this encounter Care Teams Turbo Generator Oiler Relationship Specialty Start Date End Date Catherine Jon MD 505 [place] [address] PCP - General Family Medicine 09/21/24 Kyle Velez, RN [address] [place] [address] Registered Nurse Family Medicine 06/15/25 Isha Do 06/15/25 [facility] Blaire Alcantara MD [facility] Oncology Center [address] [place] [address] Medical Oncologist Hematology and Oncology 09/21/24 Jung Maxwell MD [facility] Urology Center [address] [place] [address] Consulting Physician Urology 09/21/24 Bryant Ferro DO Consulting Physician Cardiology 09/21/24 [facility] [address] [place] [address] Consulting Physician Nephrology 09/21/24 Denilson Fay MD, PhD [facility] [address] [place] [address] Consulting Physician Ophthalmology 09/21/24 [employer], C PROGRAMMER Agency [address] [place] [address] Personal Care Services 09/21/24 documented as of this encounter
--- OUTSIDE RECORDS SUMMARY | 2025-07-27 11:30 | XMS_ITS | Clinical Summary ---
Author Organization [employer] Address [address] [facility] 7t [place] [address] Care Team Providers Care Independent Contractor Name Role Phone Catherine Jon MD Primary Care Provider [phone] Kyle Velez RN Unavailable [phone] Isha Do Unavailable Allergies No known active allergies Medications Trulicity 1.5 MG/0.5ML solution pen-injectorInd ications:Type 2 diabetes mellitus with other specified complication, with long-term current use of insulin ([facility]) INJECT ONE PEN (=1.5MG) SUBCUTANEOUSLY ONCE A WEEK DIRECTED 2 mL 023 Active Blood Glucose Monitoring Suppl (FreeStyle [place] Lite) w/Device kit Use to test blood sugar 3 times daily 1 kit Active FREESTYLE LITE test stripIndication s:Type 2 diabetes mellitus with diabetic nephropathy, with long-term current use of insulin ([facility]) TEST BLOOD SUGAR SIX TIMES [...] breakfast, with lunch, and with evening meal. 024 Active calcitriol (Rocaltrol) 0.25 MCG capsule Take 0.25 mcg by mouth in the morning. 024 Active aspirin (Aspirin Adult Low Strength) 81 [...] Continuous Glucose Sensor (FreeStyle Gary 2 Sensor) misc Apply 1 sensor every 14 days 2 each Active Continuous Glucose Cell Changer (FreeStyle Gary 2 [place]) device Scan sensor every 8 hours 1 each Active hydrALAZINE (Apresoline) 10 MG tabletIndicatio ns:Essential hypertension Take 1 tablet (10 mg) by mouth 2 times daily. 60 tablet 025 2025 Active Alcohol Swabs (Alcohol Prep) 70 % padsIndications :Type 2 diabetes mellitus with other specified complication, unspecified whether rn long term care insulin use (HCC) Test blood glucose QID 100 each 11 Active Senna S 8.6-50 MG tablet Take 1 tablet by mouth if needed at bedtime for constipation. 30 tablet 1 Active insulin lispro (HumaLOG) 100 UNIT/ML injectionIndica tions:Type 2 diabetes mellitus with hyperglycemia, unspecified whether longterm insulin use (HCC) INJECT 8-18 UNITS SUBCUTANEOUSLY THREE TIMES DAILY BEFORE BREAKFAST DIRECTED 15 mL 2 025 Active Pentips Generic Pen [place] 32G X 4 MM mis USE DIRECTED FOUR TIMES DAILY WITH INSULIN 100 each 025 Active Ferrous Sulfate (iron) 325 (65 Fe) MG tablet TAKE 1 TABLET BY MOUTH EVERY EVENING 90 tablet 1 Active D3 Super Strength 50 MCG (2000 UT) capsule TAKE 1 CAPSULE BY MOUTH EVERY MORNING 90 capsule 1 Active rosuvastatin (Crestor) 40 MG tablet TAKE 1 TABLET BY MOUTH AT BEDTIME 90 tablet 1 Active benzonatate (Tessalon) 100 MG capsule Take 1 capsule by mouth 2 times daily. Active Farxiga 10 MG Take 10 mg by mouth in the morning. Active TRUEplus Glucose 4 g chewable tablet CHEW ONE TABLET NEEDED FOR LOW BLOOD SUGAR Active omeprazole (PriLOSEC) [address] capsule Take 1 capsule (20 mg) by mouth before breakfast and before evening meal. Do not crush or chew. 180 capsule Active doxycycline (Vibra-Tabs) 100 MG tablet Take 100 mg by mouth 2 times daily. Active traMADol (Ultram) 50 MG tablet TAKE 1 TABLET BY MOUTH TWICE DAILY NEEDED FOR PAIN (PAIN SCALE 7-10) Active TRUEplus Lancets 33G miscIndications :Diabetic nephropathy associated with type 2 diabetes mellitus (HCC) TEST BLOOD SUGAR SIX TIMES DAILY 100 each 11 Active amitriptyline (Elavil) 50 MG tabletIndicatio ns:Type 2 diabetes mellitus with diabetic neuropathy, unspecified whether longterm insulin use (HCC) TAKE 1 TABLET BY MOUTH AT BEDTIME 30 tablet 1 Active Eliquis 2.5 MG tablet TAKE 1 TABLET BY MOUTH TWICE DAILY IN THE MORNING AND IN THE EVENING 60 tablet 5 Active TRUEplus Lancets 33G miscIndications :Diabetic nephropathy associated with type 2 diabetes mellitus (HCC) TEST BLOOD SUGAR SIX TIMES DAILY 200 each 11 024 2024 Discontinued apixaban (Eliquis) 2.5 MG tablet TAKE 1 TABLET BY MOUTH TWICE DAILY IN THE MORNING AND IN THE EVENING 60 tablet 5 025 2024 Discontinued amitriptyline (Elavil) 50 MG tabletIndicatio ns:Type 2 diabetes mellitus with diabetic neuropathy, unspecified whether rn long term care insulin use (HCC) TAKE 1 TABLET BY MOUTH AT BEDTIME 30 tablet 1 025 2024 Discontinued Active Problems Problem Noted Date Diagnosed Date Paresthesia 06/18/2025 Chronic HFrEF (heart failure with reduced ejection fraction) 06/18/2025 Acute internal jugular vein thrombosis (CMS/HCC) 09/21/2024 Overview (09/21/2024): Dx R sided IJV thrombosis, treated with eliquis, followed by hematology (Jul 2024) Assessment & Plan (09/21/2024 11:14 AM EST): Dx on Jul 2024, on eliquis, cont following with hematology AVF (arteriovenous fistula) 09/21/2024 long-term (current) use of insulin (CMS/HCC) Pacemaker 09/21/2024 Progressive macular hypomelanosis 09/21/2024 Unstable gait 09/21/2024 Cardiomyopathy 05/12/2024 Bladder cancer (CMS/HCC) 05/12/2024 History of adenomatous polyp of colon [...] BS numbers. Advised to follow up with [employer] Clerk to restart Farxiga. Ordering lab work for further evaluation. Advised to bring paperwork for Advanced Directives next visit. Follow up in 4 months. Encounters Date Type Department Care Team Description 07/27/2025 Patient Outreach [address] [address] Catherine Jon MD [facility] 07/22/2025 Refill [facility] MEDICINE [address] [place] [address] Catherine Jon MD Type 2 diabetes mellitus with diabetic neuropathy, unspecified whether longterm insulin use (HCC) 07/20/2025 Patient Outreach [address] [address] Catherine Jon MD Care Coordination (C3 [facility] telephone call outreach) 07/13/2025 Patient Outreach [address] [address] Catherine Jon MD Care Coordination (C3 [facility] telephone call outreach) 07/04/2025 Patient Outreach [address] [address] Catherine Jon MD Care Coordination (C3 [facility] telephone call outreach) 06/29/[address] [address] Anne Talamantes DO Diabetic nephropathy associated with type 2 diabetes mellitus (HCC) 06/21/2025 Orders Only [facility] [address] [place] [address] Karoline Portillo MD 06/19/2025 Patient Outreach [address] [address] Catherine Jon MD Transition Of Care (Tcm) (HDF unscheduled) 06/18/2025 Patient Outreach [address] [address] Catherine Jon MD 06/18/[address] [address] Catherine Jon MD No Show 06/18/2025 Patient Outreach [facility] [address] [place] [address] Catherine Jon MD Transition Of Care (Tcm) (HDF unscheduled) 06/15/2025 Patient Outreach [facility] MED[facility] [address] [place] [address] Catherine Jon MD Care Coordination (C3 -[facility] Isha Do chart review) 06/15/2025 Patient Outreach [facility] MED & PEDS [address] [place] [address] Catherine Jon MD Care Coordination (C3- chart review) 06/15/2025 Patient Outreach [facility] [address] [place] [address] Catherine Jon MD 06/05/2025 Refill [facility] [address] [place] [address] Catherine Jon MD 05/25/2025 Refill [facility] [address] [place] [address] Catherine Jon MD Type 2 diabetes mellitus with diabetic neuropathy, unspecified whether longterm insulin use ([facility]) 04/30/2025 Telephone [facility] MED & PEDS [address] [place] [address] Catherine Jon MD No Show 04/26/2025 Refill [facility] [address] [place] [address] Luke Allred MD 04/26/2025 Refill [facility] [address] [place] [address] Solitario Kelly MD from Last 3 Months Immunizations Immunization [...] the past 12 months, has t he [employer], gas, oil or water company threatened to [...] Blood Pressure 160/78 10/06/2024 12:13 PM EST fina brown Pulse 100 10/06/2024 12:09 PM EST Temperature [...] 09/21/2024 10:53 AM EST Plan of Treatment Upcoming Encounters Date Type Department Care Team (Late st Contact Info) Description 08/02/2025 1:45 PM EST Office Visit [facility] MED & PEDS [address] [place] [address] Catherine Jon MD [address] [place] [address] Health Maintenance Due Date Last Done Comments [...] 08/10/2022, Additional history exists COVID-19 Vaccine ( season) 2025 03/20/2022, 08/18/2021, [...] Procedure Name Priority Date/Time Associated Diagnosis Comments PET/CT BONE SKULL BASE TO MID THIGH Routine 06/20/2025 1:51 PM EDT POCT GLYCATED HEMOGLOBIN, TOTAL Routine 09/21/2024 11:15 AM EST Type 2 diabetes mellitus with diabetic nephropathy, with long-term current use of insulin ([facility]) LIPID PANEL, STANDARD Routine 03/03/2024 1:43 PM EDT Other fatigue BI MAMMOGRAM SCREENING TOMOSYNTHESIS BILATERAL Routine 02/25/2024 3:03 PM EDT HPV MRNA E6/E7 REFLEX TO HPV 16, 18/45 Routine 11/22/2020 12:00 AM EST HM COLONOSCOPY Routine 03/08/2019 11:49 AM EDT from Last 3 Months or Most Recently Relevant to Health Maintenance Results * PET/CT Bone Skull Base to Mid Thigh (06/20/2025 1:51 PM EDT) Anatomical Region Laterality Modality Body Computed Tomogra phy us Historical Provider IMLiliana CT PROCEDURES Final R esult * (ABNORMAL) POCT HGB A1C (09/21/2024 11:15 AM EST) Hemoglobin A1C 6.9(A) 4.0 - 6.0 % QC Media Lot # [id number] Lot# Expiration Date [id number] Blood 09/21/2024 11:1 5 AM EST Catherine Jon MD POINT OF CARE TEST ENTER/EDIT ORDERABLES Final Result * (ABNORMAL) Lipid Panel, Standard (03/03/2024 1:43 PM EDT) Triglycerides 201(H) <150 mg/dL [facility] Comment:Desirable Triglyceri de: less than 150 mg/dLBorderline High Triglyceride 150-199 mg/dLHigh Triglyceride: 200-499 mg/dLVery High Triglyceride: greater than or equal to 5OO mg/dL Cholesterol 146 <200 mg/dL [facility] Comment:Desirable Cholestero l: less than 200 mg/dLBorderline High Cholesterol: 200-239 mg/dLHigh Cholesterol: greater than 239 mg/dL LDL Cholesterol Calculated 69 <100 mg/dL [facility] Comment:Desirable LDL: less than 100 mg/dLNear Optimal/Above Optimal LDL: 110- 129 mg/dLBorderline High LDL: 130-159 mg/dLHigh LDL: 160-189 mg/dLVery High LDL: greater than or equal to 190 mg/dL HDL Cholesterol 37(L) >40 mg/dL [facility] Comment:Desirable HDL: great er than 40 mg/dL Note: This HDL assay may give artificially low results in patients with liver disease. Blood Venous blood specimen / Unknown 03/03/2024 1:43 PM EDT 03/03/2024 3:58 PM EDT us Aby Vazquez MD LAB BLOOD ORDERABLES Final Resul t [facility] [address] [place] [address] [phone] * BI Mammogram Screening Tomosynthesis Bilateral (02/25/2024 3:03 PM EDT) Anatomical Region Laterality Modality Breast Bilateral Mammography 02/25/2024 3:03 PM EDT Narrative 03/21/2024 4:41 PM EDT [facility] [address] [place] [address] Mammography Report Signed Patient: Jazmine Max MR#: [id number] : 1965 Acct:[id number] Age/Sex: 58 / F ADM Date: 02/25/24 Loc: HO.MAMMO Attending Dr: Anne Talamantes DO Ordering Physician: Anne Talamantes DO Results: 1N egative Date of Service: 02/25/24 Follow Up: 1 Year From [facility] Mammogram Procedure(s): MM tomosynthesis screening BI Accession Number(s): [id number] cc: Anne Talamantes DO EXAMINATION: MM SCREENING [...] in OV> 03/21/24 1637 DD/ 1503 TD/TT: Client Care Specialist: Procedure Note Donotuseinterpreter, Image - 03/21/2024 [facility] [address] [place], [place] [address] Mammography Report Signed Patient: Jazmine MaxMR#: [id number] : 1965Acct:[id number] Age/Sex: 58 / FADM Date: 02/25/24 Loc: HO.MAMMO Attending Dr: Anne Talamantes DO Ordering Physician: Anne Talamantesults: 1N egative Date of Service: 02/25/24Follow Up: 1 Year From Orig ina Mammogram Procedure(s): MM tomosynthesis screening BI Accession Number(s): [id number] cc: Anne Talamantes DO EXAMINATION: MM SCREENING [...] in OV> 03/21/24 1637 DD/ 1503 TD/TT: Client Care Specialist: Anne Talamantes DO IMG BI PROCEDURES Final Resu lt * HPV mRNA E6/E7 REFLEX TO HPV 16, 18/45 (11/22/2020 12:00 AM EST) HPV nRNA E6/E7 Not Detected Not Detected [facility] Comment: Methodology: Atg Architect-Mediated Amplification This assay detects E6/E7 viral messenger RNA (mRNA) from 14 high-risk HPV types (16,18,31,33,35,39,45,51,52,56,58,59,66,68). The analytical performance characteristics of this assay have been determined by [employer]. The modifications have not been cleared or approved by the FDA. This assay has been validated pursuant to the CLIA regulations and is used for clinical purposes. For additional information, please refer to http://[email or web address] (This link if provided for information/ educational purposes only.) 11/22/2020 Anne Talamantes DO LAB CYTOLOGY ORDERABLES Jolanta l Result [facility] [address] * Hm Colonoscopy (03/08/2019 11:49 AM EDT) Historical Provider HEALTH MAINTENANCE Final Result from Last 3 Months or Most Recently Relevant to Health Maintenance Insurance [facility] C3 Care Teams Independent Contractor Relationship Specialty Start Date End Date Catherine Jon MD [address] [facility] [place] [address] PCP - General Family Medicine 09/21/24 Kyle Velez, RN [address] [facility] [place] [address] Registered Nurse Family Medicine 06/15/25 Isha Do 06/15/25 [facility] 07/26/24 Blaire Alcantara MD [facility] [address] [place] [address] [address] [place] [address] Medical Oncologist Hematology and Oncology 09/21/24 Jung Maxwell MD [facility] [address] [place] [address] [place] [address] Consulting Physician Urology 09/21/24 Bryant Ferro DO Consulting Physician Cardiology 09/21/24 [facility] [address] [place] [address] Consulting Physician Nephrology 09/21/24 Denilson Fay MD, PhD [facility] [address] [place] [address] Consulting Physician Ophthalmology 09/21/24 [employer], TESTER [employer]ED [employer]ES Agency [address] [place] [address] Personal Care Services 09/21/24
--- OUTSIDE RECORDS SUMMARY | 2025-07-27 11:30 | XMS_ITS | Encounter Summary ---
Author Organization [employer] Address [address] [facility] 7t [place] [address] Care Team Providers Care Watch Engineer Name Role Phone Catherine Jon MD Primary Care Provider [phone] Kyle Velez RN Unavailable [phone] Isha Do Unavailable Reason for Visit * Reason Comments Med Refill Encounter Details Date Type Department Care Team (Late st Contact Info) Description 09/18/2024 Refill [facility] [address] [place], [place] [phone] Anne Talamantes DO 230 [place], [place] [phone] Social History Tobacco Use Types Packs/Day Years [...] Upcoming Encounters Date Type Department Care Team ([facility] st Contact Info) Description 08/02/2025 1:45 PM EST Office Visit [facility] [address] [place] [address] Catherine Jon MD 505 [place] [address] documented as of this encounter Visit Diagnoses Not on filedocumented in this encounter Care Teams Watch Engineer Relationship Specialty Start Date End Date Catherine Jon MD 505 [place] [address] PCP - General Family Medicine 09/21/24 Kyle Velez, RN 505 [place] [address] Registered Nurse Family Medicine 06/15/25 Isha Do 06/15/25 [facility] 07/26/24 Blaire Alcantara MD [facility] [address] [place] [address] Medical Oncologist Hematology and Oncology 09/21/24 Jung Maxwell MD [facility] [address] [place] [address] [place] [address] Consulting Physician Urology 09/21/24 Bryant Ferro DO Consulting Physician Cardiology 09/21/24 [facility] [address] [place] [address] [id number] Consulting Physician Nephrology 09/21/24 Denilson Fay MD, PhD [facility] [address] [place] [address] Consulting Physician Ophthalmology 09/21/24 [employer], RIVER CROSSING SUPERVISOR Agency [address] [place] [address] Personal Care Services 09/21/24 documented as of this encounter
--- OUTSIDE RECORDS SUMMARY | 2025-07-27 11:30 | XMS_ITS | Encounter Summary ---
Author Organization [email or web address] Address [address] [facility] 7t [place] [address] Care Team Providers Care Powertrain Design Engineer Name Role Phone Catherine Jon MD Primary Care Provider Kyle Velez RN Unavailable [phone] Isha Do Unavailable Reason for Visit * Reason Comments Med Refill Encounter Details Date Type Department Care Team (Late st Contact Info) Description 11/08/2024 Refill [facility] 230 [place], [place] [phone] Anne Talamantes DO 230 [place], [place] [phone] Social History Tobacco Use Types Packs/Day Years [...] Upcoming Encounters Date Type Department Care Team ([facility] st Contact Info) Description 08/02/2025 1:45 PM EST Office Visit [facility] [address] [place] [address] Catherine Jon MD 505 [place] [address] documented as of this encounter Visit Diagnoses Not on filedocumented in this encounter Care Teams Powertrain Design Engineer Relationship Specialty Start Date End Date Catherine Jon MD 505 [place] [address] PCP - General Family Medicine 09/21/24 Kyle Velez, RN 505 [place] [address] Registered Nurse Family Medicine 06/15/25 Isha Do 06/15/25 [facility] 07/26/24 Blaire Alcantara MD [facility] [address] [place] [address] Medical Oncologist Hematology and Oncology 09/21/24 Jung Maxwell MD [facility] [address] [place] [address] [place] [address] Consulting Physician Urology 09/21/24 Bryant Ferro DO Consulting Physician Cardiology 09/21/24 [facility] [address] [place] [address] [phone] Consulting Physician Nephrology 09/21/24 Denilson Fay MD, PhD [facility] 180 [place] [address] Consulting Physician Ophthalmology 09/21/24 [employer], ONLINE COMMUNICATIONS MANAGER Agency [address] [place] [address] Personal Care Services 09/21/24 documented as of this encounter
--- OUTSIDE RECORDS SUMMARY | 2025-07-27 11:30 | XMS_ITS | Encounter Summary ---
Author Organization [employer] [facility] Address [address] [facility] 7t h Floor [place] [id number] Care Team Providers Care Rod Buster Name Role Phone Catherine Jon MD Primary Care Provider [phone] Kyle Velez RN Unavailable [phone] Isha Do Unavailable Encounter Details Date Type Department Care Team (Late st Contact Info) Description 01/21/2023 Orders Only [facility] MED [facility] PEDS [address] [place] [address] Anne Gama LPN Social History Tobacco Use [...] Description 08/02/2025 1:45 PM EST Office Visit [facility] [address] [place] [address] Catherine Jon MD 505 [place] [address] documented as of this encounter Visit Diagnoses Not on filedocumented in this encounter Care Teams Rod Buster Relationship Specialty Start Date End Date Catherine Jon MD 505 [place] [address] PCP - General Family Medicine 09/21/24 Kyle Velez, RN [address] [place] [address] Registered Nurse Family Medicine 06/15/25 Isha Do 06/15/25 [facility] Blaire Alcantara MD [facility] [address] [place] [address] Medical Oncologist Hematology and Oncology 09/21/24 Jung Maxwell MD [facility] [address] [place] [address] Consulting Physician Urology 09/21/24 Bryant Ferro DO Consulting Physician Cardiology 09/21/24 [facility] [address] [place] [address] Consulting Physician Nephrology 09/21/24 Denilson Fay MD, PhD [facility] 180 [place] [address] Consulting Physician Ophthalmology 09/21/24 [employer], RECREATION THERAPY AIDES TEACHER Agency 25 [place] [address] Personal Care Services 09/21/24 documented as of this encounter
--- OUTSIDE RECORDS SUMMARY | 2025-07-27 11:30 | XMS_ITS | Encounter Summary ---
Author Organization [facility] Address [address] [facility] 7t [place] [address] Care Team Providers Care Discovery Manager Name Role Phone Catherine Jon MD Primary Care Provider [phone] Kyle Velez RN Unavailable [phone] Isha Do Unavailable Reason for Visit * Reason Comments Med Refill Encounter Details Date Type Department Care Team (Late Contact Info) Description 02/26/2023 Refill [facility] MED[facility]INE 230 [place], [place] [phone] Claribel Dalton MD 230 [place], [place] [phone] Type 2 diabetes mellitus with hyperglycemia, unspecified whether terminal superintendent insulin use (CMS/HCC) Social History Tobacco Use [...] Description 08/02/2025 1:45 PM EST Office Visit [facility]S 505 [place], [place] [phone] Catherine Jon MD 505 [place], [place] [phone] documented as of this encounter Visit Diagnoses Diagnosis Type 2 diabetes mellitus with hyperglycemia, unspecified whether terminal superintendent insulin use (HCC) documented in this encounter Care Teams Discovery Manager Relationship Specialty Start Date End Date Catherine Jon MD 505 [place] [address] PCP - General Family Medicine 09/21/24 Kyle Velez, RN 505 [place] [address] Registered Nurse Family Medicine 06/15/25 Isha Do 06/15/25 [facility] 07/[facility]24 Blaire Alcantara MD [facility] [address] [place] [address] [address] [place] [address] Medical Oncologist Hematology and Oncology 09/21/24 Jung Maxwell MD [facility] [address] [place] [address] [facility] 204 [place] [address] Consulting Physician Urology 09/21/24 Bryant Ferro DO Consulting Physician Cardiology 09/21/24 [facility] [address] [place] [address] Consulting Physician Nephrology 09/21/24 Denilson Fay MD, PhD [facility] 180 [place], [place] [phone] Consulting Physician Ophthalmology 09/21/24 [employer], PRODUCT PROMOTER RETAIL PET Agency 25 [place] [address] Personal Care Services 09/21/24 documented as of this encounter
--- OUTSIDE RECORDS SUMMARY | 2025-07-27 11:31 | XMS_ITS | Encounter Summary ---
Author Organization [employer] Address 75 [facility] 7t [place] [address] Care Team Providers Care Marketing Support Coordinator Name Role Phone Catherine Jon MD Primary Care Provider [phone] Kyle Velez RN Unavailable [phone] Isha Do Unavailable Reason for Visit * Reason Comments Med Refill Encounter Details Date Type Department Care Team (Late st Contact Info) Description 07/22/2025 Refill [facility] MED[facility]INE 230 [place] [address] Catherine Jon MD [address] [place], [place] [phone] Type 2 diabetes mellitus with diabetic neuropathy, unspecified whether jail insulin use (HCC) Social History Tobacco Use Types Packs/Day Years [...] the past 12 months, has t he [email or web address], oil or water company threatened to shut [...] Description 08/02/2025 1:45 PM EST Office Visit [facility] 505 [place] [address] Catherine Jon MD 505 [place] [address] documented as of this encounter Visit Diagnoses Diagnosis Type 2 diabetes mellitus with diabetic neuropathy, 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 (HCC) documented in this encounter Care Teams Marketing Support Coordinator Relationship Specialty Start Date End Date Catherine Jon MD 505 [place] [address] PCP - General Family Medicine 09/21/24 Kyle Velez, RN 505 [place] [address] Registered Nurse Family Medicine 06/15/25 Isha Do 06/15/25 [facility] 07/26/24 Blaire Alcantara MD [facility] [address] [place] [address] [address] [place] [address] Medical Oncologist Hematology and Oncology 09/21/24 Jung Maxwell MD [facility] [address] [place] [address] [place] [address] Consulting Physician Urology 09/21/24 Bryant Ferro DO Consulting Physician Cardiology 09/21/24 [facility] [address] [place] [address] Consulting Physician Nephrology 09/21/24 Denilson Fay MD, PhD [facility] 180 [place] [address] Consulting Physician Ophthalmology 09/21/24 [employer], COAL PULVERIZING OPERATOR Agency 25 [place] [address] Personal Care Services 09/21/24 documented as of this encounter
--- OUTSIDE RECORDS SUMMARY | 2025-07-27 11:31 | XMS_ITS | Encounter Summary ---
Author Organization [employer] Address 75 [facility] 7t [place] [address] Care Team Providers Care Stave Cutter Name Role Phone Catherine Jon MD Primary Care Provider [phone] Kyle Velez RN Unavailable [phone] Isha Do Unavailable Encounter Details Date Type Department Care Team (Late st Contact Info) Description 06/21/2025 Orders Only [facility] 230 [place] [address] Provider, MD Karoline Social History Tobacco Use Types Packs/Day Years Used Date Smoking Tobacco: Never Passive Smoke Exposure: Never Smokeless Tobacco: Never Housing Stability Answer Date Recorded What is your housing situation today? I have peter sing 08/02/[address] you li [...] Description 08/02/2025 1:45 PM EST Office Visit [facility] 505 [place] [address] Catherine Jon MD 505 [place] [address] documented as of this encounter Procedures Procedure Name Priority Date/Time Associated Diagnosis Comments PET/CT BONE SKULL BASE TO MID THIGH Routine 06/20/2025 1:51 PM EDT documented in this encounter Results * PET/CT Bone Skull Base to Mid Thigh (06/20/2025 1:51 PM EDT) Anatomical Region Laterality Modality Body Computed Tomogra phy us Historical Provider MD MENON CT PROCEDURES Final R esult documented in this encounter Visit Diagnoses Not on filedocumented in this encounter Care Teams Stave Cutter Relationship Specialty Start Date End Date Catherine Jon MD 505 [place] [address] PCP - General Family Medicine 09/21/24 Kyle Velez, RN 505 [place] [address] Registered Nurse Family Medicine 06/15/25 Isha Do 06/15/25 [facility] 07/26/24 Blaire Alcantara MD [facility] [address] [place] [address] Medical Oncologist Hematology and Oncology 09/21/24 Jung Maxwell MD [facility] [address] [place] [address] Consulting Physician Urology 09/21/24 Bryant Ferro DO Consulting Physician Cardiology 09/21/24 [facility] [address] [place] [address] Consulting Physician Nephrology 09/21/24 Denilson Fay MD, PhD [facility] 180 [place] [address] Consulting Physician Ophthalmology 09/21/24 [employer], ANIMAL CONTROL LICENSING WORKER Agency 25 [place], [place] [phone] Personal Care Services 09/21/24 documented as of this encounter
== END 2025-07-27 11:12 | disposition home or self-care (01) ==
LOC: HO.HUSH 10:11
PROVIDERS: PCP Internal Medicine; Visit Provider Urology
DX: C67.9 Malignant neoplasm of bladder, unspecified (principal)
CPT/HCPCS: 52000

== ENCOUNTER → 2025-07-27 10:10 | Outpatient (BNVA) | payer MEDICAID, SELFPAY | PROVIDERS: PCP Internal Medicine; Visit Provider Urology | DX: C67.9 Malignant neoplasm of bladder, unspecified (principal) | CPT/HCPCS: 52000 ==

== ENCOUNTER 2025-08-17 12:56 | Outpatient (REF) | payer MEDICAID, SELFPAY ==
--- OUTSIDE RECORDS SUMMARY | 2024-03-16 06:15 | XMS_ITS ---
Author Organization Estuardo Kenyon III, MD Address [address] [place] [address] [place] [address] Care Team Providers Care Floor Supervisor Name Role Phone YENI SALGUERO Primary Care Provider [phone] Dr. Estuardo Kenyon III Unavailable Allergies Allergen (clinical drug ingredient) Drug/Non Drug [...] Provider Specialty Oncology General Notes Esther Hernandez ACTIVATED SLUDGE OPERATOR 02/26 02:14:17 PM EDT > pt dtr Olga called given appt information and ref/progress notes and all testing faxed to Dr Zhou at [phone] Referral Priority Routine Referral Appointment Date 03/17/2024 [...] Problem Status W/U Status Risk Notes Problem 34574143 Cardiomyopathy, unspecified type (I42.9) Active confirmed Problem 22093289 Chronic renal failure, stage 4 (severe) (N18.4) Active confirmed We have mad e the physician aide aware of the situation. The fistula in the left upper lung appears to be maturing well. The dialysis catheter and right upper chest wall is intact and seems to function normally. Problem 25515941 Hypertension, unspecified type (I10) Active confirmed Problem 821215820467889525 Progressive macular hypomelanosis (L81.6) Active confirmed Problem 538586734 AVF (arteriovenous fistula) (I77.0) Active confirmed Problem 25912056 End-stage renal disease (N18.6) Active confirmed Problem 442736022 Pacemaker (Z95.0) Active confirmed Problem 103062407 History of adenomatous polyp of colon (Z86.010) Active confirmed Problem 743612322 Type 2 diabetes mellitus with diabetic chronic kidney disease (E11.22) Active confirmed Problem 098371197 Chronic kidney disease, stage 5 (N18.5) Active confirmed Problem 454292209 retirement (current) use of insulin (Z79.4) Active confirmed Problem 295474286 Anemia in chronic kidney disease (D63.1) Active confirmed Her blood pressure is currently 139/69 and no change in her regimen as needed. Problem 28861482 Type 2 diabetes mellitus with diabetic nephropathy, unspecified whether snf insulin use (E11.21) Active confirmed Diabetes currently seems well controlled. Problem 73196858 Secondary hyperparathyroid ism of renal origin (N25.81) Active confirmed She is in end-stage renal disease. Problem 882830012 Malignant neoplasm of urinary bladder, unspecified site [...] Date Provider Diagnosis Estuardo Kenyon III, MD [address] [place] [address] [place] [address] 03/16/2024 Estuardo Kenyon Chronic renal failur e, stage 4 (severe) N18.4 ; Malignant neoplasm of urinary bladder, unspecified site C67.9 ; Type 2 diabetes mellitus with diabetic nephropathy, unspecified whether parts counterman insulin use E11.21 ; Secondary hyperparathyroidism of [...] (ICD-10 - N18.4) We have made the physician aide aware of the situation. The fistula in [...] apoorva itus with diabetic nephropathy, unspecified whether snf insulin use (ICD-10 - E11.21) Diabetes currently [...] * Jazmine RILEYDOB: [birth year] (58 yo F)Acc No.[id number]:03/16/2024 Patient: Maty Reynacelia Provider: Evaristo Kenyon MD :1965 A ge:58 Y S ex:Female Date:03/16/2024 Address:[address] [place] [address] [id number] Pcp:YENI SALGUERO Subjective: * Chief Complaints: * [...] yet as it is still healing. Her physician aide is Dr. Martinez. She receives primary care at the [facility]. A CT scan of the abdomen at the [facility] recently showed a large mass in [...] have referred her to medical oncology at [facility] for further staging and definitive treatment. [...] - N18.4 (Primary), We have made the physician aide aware of the situation. The fistula in [...] diabetes mellitus with diabetic nephropathy, unspecified whether snf insulin use - E11.21, Diabetes currently seems [...] 03/16/2024 Generated for Printi ng/Fajossueg/eTransmitting on: 1 10/17/2024 01:18 PM EST History and Physical Notes * [...] days?: No Have you travelled internationally in [facility] last 10 days?: No Have you [...]
--- OUTSIDE RECORDS SUMMARY | 2025-08-16 15:30 | XMS_ITS | Encounter Summary ---
Author Organization [employer] Address [address] [facility] 7t [place] [address] Care Team Providers Care Plow Shaker Name Role Phone Catherine Jon MD Primary Care Provider Reason for Referral * Consultation (Routine) - Pending Review Specialty Diagnoses / Procedures Referred By Contranda t Referred To Contact Gastroenterology Diagnoses Colon cancer screening Catherine Jon MD 505 [place] [address] Phone: tel: fax: Referral ID Status Reason Start Date Expiration Date Visits Requested Visits Authorized [id number] Pending Review Specialty Services Required 5 08/16/2026 1 1 Encounter Details Date Type Department Care Team (Late st Contact Info) Description 08/16/2025 3:30 PM EST Office Visit [facility] PEDS 505 [place], [place] [phone] Catherine Jon MD 505 [place], [place] [phone] Gross hematuria (Primary Dx); Colon cancer screening; Encounter for health-related screening; Type 2 diabetes mellitus with diabetic nephropathy, with long-term current use of insulin (HCC); Peripheral polyneuropathy; Type 2 diabetes mellitus with diabetic neuropathy, unspecified whether prison insulin use (HCC); Type 2 diabetes mellitus with hyperglycemia, unspecified whether prison insulin use (HCC) Social History Tobacco Use Types Packs/Day Years Used Date Smoking Tobacco: Never Passive Smoke Exposure: Never Smokeless Tobacco: Never Depression Answer Date Recorded Patient Health Questionnaire-9 Score 14 08/02/2025 Patient Health Questionnaire-9 Score 14 08/02/2025 Last PHQ-9: Questionnaire Data Not on file 1 10/02/2024 Housing Stability Answer Date Recorded What is [...] from getting things needed for daily living? No 08/02/2025 Utilities Answer Date Recorded In the past 12 months, has t he electric, gas, oil or water company threatened to shut off services in your home? No 08/02/2024 Depression Answer Date Recorded Patient Health Questionnaire-2 Score 4 08/02/2025 Internet Access Answer Date Recorded Internet Access Q1 Yes 08/02/2024 Internet Access Q2 Not on file 08/02/2024 Comments Unknown Sex and Gender Information Value Date Recorded Sex Assigned at Female 07/27/2022 10:16 AM EDT Legal Sex Female 10:16 AM EDT Gender Identity Female 07/27/2022 10:16 AM EDT Sexual Orientation Straight 07/27/2022 10 :16 AM EDT documented as of this encounter Last Filed Vital Signs Vital Sign Reading Time Taken Comments Blood Pressure 144/64 08/16/2025 3:08 PM EST Pulse 78 08/16/2025 3:08 PM EST Temperature 36.3 C (97.4 F) 08/16/2025 3:08 PM EST Respiratory Rate 20 08/16/2025 3:08 PM EST Oxygen Saturation 98% 08/16/2025 3:08 PM EST Inhaled Oxygen Concentration - - Weight 62.2 kg (137 lb 3.2 oz) 08/16/2025 3:08 P M EST Height 152.4 cm (5') 08/16/2025 3:08 PM EST Body Mass Index 26.8 08/16/2025 3:08 PM EST documented in this encounter Plan of Treatment Scheduled Orders Name Type Priority Associated Diagnoses Orde r Schedule CBC auto differential Lab Routine Gross hematuria Expected: 08/16/2025 (Approximate), Expires: 08/16/2026 Comprehensive Metabolic Panel Lab Routine Gross hematuria Expected: 08/16/2025 (Approximate), Expires: 08/16/2026 Iron And Total Iron Binding Capacity Lab Routine Gross hematuria Expected: 08/16/2025, Expires: 08/16/2026 Ferritin Lab Routine Gross hematuria Expected: 08/16/2025 (Approximate), Expires: 08/16/2026 Urinalysis with reflex microscopic Lab Routine Gross hematuria Expected: 08/16/2025, Expires: 08/16/2026 Hepatitis C Antibody with Reflex to HCV, RNA, Quantitative, Real-Time PCR Lab Routine Encounter for health-related screening Expected: 08/16/2025, Expires: 08/16/2026 Hepatitis B Surface Antibody, Qualitative Lab Routine Encounter for health-related screening Expected: 08/16/2025 (Approximate), Expires: 08/16/2026 Hepatitis B Core Antibody, Total Lab Routine Encounter for health-related screening Expected: 08/16/2025 (Approximate), Expires: 08/16/2026 Hepatitis B surface antigen, EIA Lab Routine Encounter for health-related screening Expected: 08/16/2025 (Approximate), Expires: 08/16/2026 Lipid Panel, Standard Lab Routine Type 2 diabetes mellitus with diabetic nephropathy, with long-term current use of insulin (HCC) Expected: 08/16/2025 (Approximate), Expires: 08/16/2026 Fructosamine Lab Routine Type 2 diabetes mellitus with diabetic nephropathy, with long-term current use of insulin (HCC) Expected: 08/16/2025 (Approximate), Expires: 08/16/2026 Urinalysis, Complete, with Reflex to Culture Lab Routine Gross hematuria Expected: 08/17/2025 (Approximate), Expires: 08/17/2026 Scheduled Referrals Name Type Priority Associated Diagnoses Order Schedule Referral to Gastroenterology Outpatient Referral Routine Colon cancer screening Expected: 08/16/2025 (Approximate), Expires: 08/16/2026 documented as of this encounter Goals Goal Patient Goal Type Associated Problems Recent Progress Patient-Stated? Author Help patients manage their type 2 diabetes Care Plan Help patients manage their type 2 diabetes Isha Paris Weekly blood pressure task Care Plan Weekly blood pressure task No Isha Do Help patients manage their type 2 diabetes Care Plan Help patients manage their type 2 diabetes No Isha Do Patient has diabetic eye disease Care Plan Patient has diabetic eye disease No Isha Do Help patients manage their type 2 diabetes Care Plan Help patients manage their type 2 diabetes No Isha Do Patient has chronic kidney disease Care Plan Patient has chronic kidney disease No Isha Do Weekly blood pressure task Care Plan Weekly blood pressure task No Isha Do Weekly blood pressure task Care Plan Weekly blood pressure task No Isha Do Patient has diabetic eye disease Care Plan Patient has diabetic eye disease No Isha Do Patient has diabetic eye disease Care Plan Patient has diabetic eye disease No Isha Do Patient has chronic kidney disease Care Plan Patient has chronic kidney disease No Isha Do Patient has chronic kidney disease Care Plan Patient has chronic kidney disease No Isha Do Weekly blood pressure task Care Plan Weekly blood pressure task No Peng Ng MA Weekly blood pressure task Care Plan Weekly blood pressure task No Peng Ng MA Weekly blood pressure task Care Plan Weekly blood pressure task No Peng Ng MA Patient has diabetic eye disease Care Plan Patient has diabetic eye disease No Peng Ng MA Patient has diabetic eye disease Care Plan Patient has diabetic eye disease No Peng Ng, KASSANDRA Patient has diabetic eye disease Care Plan Patient has diabetic eye disease No Peng Ng MA Patient has chronic kidney disease Care Plan Patient has chronic kidney disease No Peng Ng MA Patient has chronic kidney disease Care Plan Patient has chronic kidney disease No Peng Ng, KASSANDRA Patient has chronic kidney disease Care Plan Patient has chronic kidney disease No Peng Ng, KASSANDRA Weekly blood pressure task Care Plan Weekly blood pressure task No Catherine Jon MD Weekly blood pressure task Care Plan Weekly blood pressure task No Catherine Jon MD Weekly blood pressure task Care Plan Weekly blood pressure task No Catherine Jon MD Patient has diabetic eye disease Care Plan Patient has diabetic eye disease No Catherine Jon MD Patient has diabetic eye disease Care Plan Patient has diabetic eye disease No Catherine Jon MD Patient has diabetic eye disease Care Plan Patient has diabetic eye disease No Catherine Jon MD Patient has chronic kidney disease Care Plan Patient has chronic kidney disease Catherine Tamez MD Patient has chronic kidney disease Care Plan Patient has chronic kidney disease No Catherine Jon MD Patient has chronic kidney disease Care Plan Patient has chronic kidney disease No Catherine Jon MD documented as of this encounter Visit Diagnoses Diagnosis Gross hematuria- Primary Colon cancer screening Special screening for malignant neoplasms, colon Encounter for health-related screening Type 2 diabetes mellitus with diabetic nephropathy, with long-term current use of insulin (HCC) Peripheral polyneuropathy Type 2 diabetes mellitus with diabetic neuropathy, unspecified whether 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 operations supervisor insulin use (HCC) Type 2 diabetes mellitus with hyperglycemia, unspecified whether sort operations supervisor insulin use (HCC) documented in this encounter Additional Health Concerns Active Problems Noted Date Diagnosed Date Help patients manage their type 2 diabetes 08/10 Weekly blood pressure task 08/10/2025 Help patients manage their type 2 diabetes 08/10 Patient has diabetic eye disease 08/10/2025 Help patients manage their type 2 diabetes 08/10 Patient has chronic kidney disease 08/10/2025 Weekly blood pressure task 08/10/2025 Weekly blood pressure task 08/10/2025 Patient has diabetic eye disease 08/10/2025 Patient has diabetic eye disease 08/10/2025 Patient has chronic kidney disease 08/10/2025 Patient has chronic kidney disease 08/10/2025 Weekly blood pressure task 08/16/2025 Weekly blood pressure task 08/16/2025 Weekly blood pressure task 08/16/2025 Patient has diabetic eye disease 08/16/2025 Patient has diabetic eye disease 08/16/2025 Patient has diabetic eye disease 08/16/2025 Patient has chronic kidney disease 08/16/2025 Patient has chronic kidney disease 08/16/2025 Patient has chronic kidney disease 08/16/2025 Weekly blood pressure task 08/16/2025 Weekly blood pressure task 08/16/2025 Weekly blood pressure task 08/16/2025 Patient has diabetic eye disease 08/16/2025 Patient has diabetic eye disease 08/16/2025 Patient has diabetic eye disease 08/16/2025 Patient has chronic kidney disease 08/16/2025 Patient has chronic kidney disease 08/16/2025 Patient has chronic kidney disease 08/16/2025 Assessment Noted Time PHQ-9 Depression Total Score: 14 025 2:01 PM EST documented as of this encounter Care Teams Plow Shaker Relationship Specialty Start Date End Date Catherine Jon MD [address] [place] [address] PCP - General Family Medicine 09/21/24 [facility] 07/26/24 Blaire Alcantara MD [facility] [address] [place] [address] Medical Oncologist Hematology and Oncology 09/21/24 Jung Maxwell MD [facility] [address] [place] [address] Dr Perez [address] [place] [address] Consulting Physician Urology 09/21/24 Bryant Ferro DO Consulting Physician Cardiology 09/21/24 [facility] [address] [place] [address] Consulting Physician Nephrology 09/21/24 Denilson Fay MD, PhD [facility] 180 [place], [place] [phone] Consulting Physician Ophthalmology 09/21/24 [employer], FIELD SERVICE MANAGER Agency 25 [place], [place] [phone] Personal Care Services 09/21/24 documented as of this encounter
--- OUTSIDE RECORDS SUMMARY | 2025-08-17 13:17 | XMS_ITS | Encounter Summary ---
Author Organization [employer] Address [address] [facility] 7t [place] [address] Care Team Providers Care Cargo Trimmer Name Role Phone Catherine Jon MD Primary Care Provider [phone] Kyle Velez RN Unavailable Isha Do Unavailable Reason for Visit * Reason Onset Date Comments Change PCP 08/03/2024 Encounter Details Date Type Department Care Team ([facility] st Contact Info) Description 08/03/2024 Telephone [facility] MEDICINE [address] [place], [place] [phone] Anne Talamantes DO [address] [place], [place] [phone] Change PCP Social History Tobacco Use Types [...] from pt stating she has moved to [place] and is requesting to change locations due to convince. If any questions you can contact pt at [phone]. (Slovenian Speaker) documented in this encounter Plan of Treatment Not on file documented as of this encounter Visit Diagnoses Not on filedocumented in this encounter Care Teams Cargo Trimmer Relationship Specialty Start Date End Date Catherine Jon MD [address] [place] [address] PCP - General Family Medicine 09/21/24 Kyle Velez, RN [address] [place] [address] Registered Nurse Family Medicine 06/15/25 08/10/25 Isha Do 06/15/25 08/10/25 [facility] Blaire Alcantara MD [facility] [address] [place] [address] [address] [place] [address] Medical Oncologist Hematology and Oncology 09/21/24 Jung Maxwell MD [facility] [address] [place] [address] [place] [address] Consulting Physician Urology 09/21/24 Bryant Ferro DO Consulting Physician Cardiology 09/21/24 [facility] [address] [place] [address] Consulting Physician Nephrology 09/21/24 Denilson Fay MD, PhD [facility] [address] [place] [address] Consulting Physician Ophthalmology 09/21/24 [employer], HEDGE FUND PRINCIPAL Agency [address] [place] [address] Personal Care Services 09/21/24 documented as of this encounter
--- OUTSIDE RECORDS SUMMARY | 2025-08-17 13:17 | XMS_ITS | Encounter Summary ---
Author Organization [employer] Address [address] [facility] 7t [place] [address] Care Team Providers Care Yard Specialist Name Role Phone Catherine Jon MD Primary Care Provider [phone] Encounter Details Date Type Department Care Team ([facility] st Contact Info) Description 08/16/2025 Telephone [facility] [address] [place], [place] [phone] Catherine Jon MD [address] [place], [place] [phone] Social History Tobacco Use Types Packs/Day Years [...] encounter Miscellaneous Notes * Telephone Encounter - Lanette Bird RN - 08/16/2025 4:[address] Reaves's office and tried both the triage nurse and Dr. Reaves's [place]. Was unable to get through regarding message from Dr. Jon. Left message to call back regarding an urgent matter. Hello Nursing Team! 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 I am sending testing and seeing if she has a UTI, but can we please reachout to his office and inform him. Please and thanks! Catherine * Telephone Encounter - Catherine Jon MD - 08/16/2025 3:42 PM EST Hello Nursing Team! 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 I am sending testing and seeing if she has a UTI, but can we please reachout to his office and inform him. Please and thanks! Catherine documented in this encounter Plan of Treatment Not on file documented as of this encounter Goals Goal [...] Care Plan Weekly blood pressure task No HernandezBjtaKASSANDRA Patient has diabetic eye disease Care Plan Patient has diabetic eye disease No HernandezBjtaKASSANDRA Patient has diabetic eye disease Care Plan Patient has diabetic eye disease No Bj Ngta, [place] Patient has diabetic eye disease Care Plan Patient has diabetic eye disease No HernandezBjta [place] Patient has chronic kidney disease Care Plan Patient has chronic kidney disease No HernandezBjta, KASSANDRA Patient has chronic kidney disease Care [...] Diagnoses Not on filedocumented in this encounter Additional Health Concerns Active [...] documented as of this encounter Care Teams Yard Specialist Relationship Specialty Start Date End Date Catherine Jon MD [address] [place] [address] PCP - General Family Medicine 09/21/24 [facility] 07/26/24 Blaire Alcantara MD [facility] [address] [facility] [address] [place] [address] Medical Oncologist Hematology and Oncology 09/21/24 Jung Maxwell MD [facility] [address] [place] [address] [place] [address] Consulting Physician Urology 09/21/24 Bryant Ferro DO Consulting Physician Cardiology 09/21/24 [facility] [address] [place] [address] Consulting Physician Nephrology 09/21/24 Denilson Fay MD, PhD [facility] [address] [place] [address] Consulting Physician Ophthalmology 09/21/24 [employer], SEXUAL HEALTH PHYSICIAN Agency [address] [place] [address] Personal Care Services 09/21/24 documented as of this encounter
--- OUTSIDE RECORDS SUMMARY | 2025-08-17 13:17 | XMS_ITS | Encounter Summary ---
Author Organization [employer] Address 75 [facility] 7t [place] [address] Care Team Providers Care Sales Vice President Name Role Phone Catherine Jon MD Primary Care Provider [phone] Kyle Velez RN Unavailable [phone] Isha Do Unavailable Encounter Details Date Type Department Care Team ([facility] st Contact Info) Description 09/30/2022 Orders Only [facility] [address] [facility] [place] [address] Anne Gama LPN Social History Tobacco Use [...] on filedocumented in this encounter Care Teams Sales Vice President Relationship Specialty Start Date End Date Catherine Jon MD [address] [facility] [place] [address] PCP - General Family Medicine 09/21/24 Kyle Velez, RN [address] [place] [address] Registered Nurse Family Medicine 06/15/25 08/10/25 Isha Do 06/15/25 08/10/25 [facility] 07/26/24 Blaire Alcantara MD [facility] [address] [facility] [address] [place] [address] Medical Oncologist Hematology and Oncology 09/21/24 Jung Maxwell MD [facility] [address] [place] [address] [place] [address] Consulting Physician Urology 09/21/24 Bryant Ferro DO Consulting Physician Cardiology 09/21/24 [facility] [address] [place] [phone] Consulting Physician Nephrology 09/21/24 Denilson Fay MD, PhD [facility] [address] [place], [place] [phone] Consulting Physician Ophthalmology 09/21/24 [employer], MANAGER TEST Agency [address] [place] [address] Personal Care Services 09/21/24 documented as of this encounter
--- OUTSIDE RECORDS SUMMARY | 2025-08-17 13:17 | XMS_ITS | Encounter Summary ---
Author Organization [employer] Address 75 [facility] 7t h Floor [place] [phone] Care Team Providers Care Beach Attendant Name Role Phone Catherine Jon MD Primary Care Provider [phone] Kyle Velez RN Unavailable [phone] Isha Do Unavailable Encounter Details Date Type Department Care Team (Late st Contact Info) Description 09/24/2022 Orders Only [facility] MEDICINE [address] [place] [address] Lydia Haq RN Social History Tobacco Use [...] on filedocumented in this encounter Care Teams Beach Attendant Relationship Specialty Start Date End Date Catherine Jon MD 505 [facility] [place] [address] PCP - General Family Medicine 09/21/24 Kyle Velez, RN [address] [place] [address] Registered Nurse Family Medicine 06/15/25 08/10/25 Isha Do 06/15/25 08/10/25 [facility] 07/26/24 Blaire Alcantara MD [facility] [address] [facility] [address] [place] [address] Medical Oncologist Hematology and Oncology 09/21/24 Jung Maxwell MD [facility] [address] [place] [address] [place] [address] Consulting Physician Urology 09/21/24 Bryant Ferro DO Consulting Physician Cardiology 09/21/24 [facility] [address] [place] [phone] Consulting Physician Nephrology 09/21/24 Denilson Fay MD, PhD [facility] [address] [place] [address] Consulting Physician Ophthalmology 09/21/24 [employer], OCCUPATIONAL HEALTH PHYSICIAN Agency [address] [place] [address] Personal Care Services 09/21/24 documented as of this encounter
--- OUTSIDE RECORDS SUMMARY | 2025-08-17 13:17 | XMS_ITS | Encounter Summary ---
Author Organization [employer] Address 75 [facility] 7t [place] [address] Care Team Providers Care Bead Forming Machine Operator Name Role Phone Catherine Jon MD Primary Care Provider [phone] Encounter Details Date Type Department Care Team (Latest Contact Info) Description 08/16/2025 Travel Social History Tobacco Use Types Packs/Day Years [...] documented as of this encounter Care Teams Bead Forming Machine Operator Relationship Specialty Start Date End Date Catherine Jon MD [address] [place] [address] PCP - General Family Medicine 09/21/24 [facility] 07/26/24 Blaire Alcantara MD [facility] [address] [facility] [address] [place] [address] Medical Oncologist Hematology and Oncology 09/21/24 Jung Maxwell MD [facility] [address] [place] [address] Consulting Physician Urology 09/21/24 Bryant Ferro DO Consulting Physician Cardiology 09/21/24 [facility] [address] [place] [address] Consulting Physician Nephrology 09/21/24 Denilson Fay MD, PhD [facility] [address] [place], [place] [phone] Consulting Physician Ophthalmology 09/21/24 [employer], CONTROLS PROJECT ENGINEER Agency [address] [place] [address] Personal Care Services 09/21/24 documented as of this encounter
--- OUTSIDE RECORDS SUMMARY | 2025-08-17 13:18 | XMS_ITS | Encounter Summary ---
Author Organization [employer] Address 75 [facility] 7t [place] [address] Care Team Providers Care Key Account Representative Name Role Phone Catherine Jon MD Primary Care Provider [phone] Kyle Velez RN Unavailable [phone] Isha Do Unavailable Reason for Visit * Reason Comments Med Refill Encounter Details Date Type Department Care Team (Late st Contact Info) Description 09/18/2024 Refill [facility] MEDICINE [address] [place], [place] [phone] Anne Talamantes DO [address] [place], [place] [phone] Social History Tobacco Use Types Packs/Day Years [...] on filedocumented in this encounter Care Teams Key Account Representative Relationship Specialty Start Date End Date Catherine Jon MD [address] [place] [address] PCP - General Family Medicine 09/21/24 Kyle Velez, TYESHA [address] [place] [address] Registered Nurse Family Medicine 06/15/25 08/10/25 Isha Do 06/15/25 08/10/25 [facility] 07/26/24 Blaire Alcantara MD [facility] [address] [place] [address] [address] [place] [address] Medical Oncologist Hematology and Oncology 09/21/24 Jung Maxwell MD [facility] [address] [place] [address] [place] [address] Consulting Physician Urology 09/21/24 Bryant Ferro DO Consulting Physician Cardiology 09/21/24 [facility] [address] [place] [address] Consulting Physician Nephrology 09/21/24 Denilson Fay MD, PhD [facility] [address] [place] [address] Consulting Physician Ophthalmology 09/21/24 [employer], JUDGE Agency [address] [place] [address] Personal Care Services 09/21/24 documented as of this encounter
--- OUTSIDE RECORDS SUMMARY | 2025-08-17 13:18 | XMS_ITS | Clinical Summary ---
Author Organization [employer] Address [address] [facility] [address] [place] [address] Care Team Providers Care Bacon De Rinder Name Role Phone Catherine Jon MD Primary Care Provider [phone] Allergies No known active allergies Medications Blood Glucose Monitoring Suppl (JianjianStyle Bellevue Lite) w/Device kit Use to test blood sugar 3 times daily 1 kit Active cinacalcet (Sensipar) 30 MG tablet Take 1 tablet by mouth 3 (three) times a week. Active metoprolol tartrate (Lopressor) 50 MG tablet Take 1 tablet by mouth 2 times daily. 024 Active sevelamer carbonate (Renvela) 800 MG tablet Take 800 mg by mouth with breakfast, with lunch, and with evening meal. Active calcitriol (Rocaltrol) 0.25 MCG capsule Take 0.25 mcg by mouth in the morning. 024 Active glucose-vitamin C 4-6 GM-MG oral gel Chew 1 tablet if needed for low blood sugar. 50 tablet Active Continuous Glucose Performance Manager (FreeStyle Gary 2 [place]) device Scan sensor every 8 hours 1 each 024 Active Alcohol Swabs (Alcohol Prep) 70 % padsIndications: Type 2 diabetes mellitus with other specified complication, unspecified whether chcf insulin use (HCC) Test blood glucose QID 100 each Active Senna S 8.6-50 MG tablet Take 1 tablet by mouth if needed at bedtime for constipation. 30 tablet 1 025 Active Pentips Generic Pen Seligman 32G X 4 MM misc USE DIRECTED FOUR TIMES DAILY WITH INSULIN 100 each 025 Active D3 Super Strength 50 MCG (2000 UT) capsule TAKE 1 CAPSULE BY MOUTH EVERY MORNING 90 capsule 1 Active Farxiga 10 MG Take 10 mg by mouth in the morning. Active TRUEplus Lancets 33G miscIndications: Diabetic nephropathy associated with type 2 diabetes mellitus ([facility]) TEST BLOOD SUGAR SIX TIMES DAILY 100 each 11 Active gabapentin (Neurontin) 300 MG capsule TAKE 1 CAPSULE BY MOUTH THREE TIMES DAILY IN THE MORNING, EVENING, AND BEDTIME Active FREESTYLE LITE test stripIndications :Type 2 diabetes mellitus with diabetic nephropathy, with long-term current use of insulin ([facility]) Use to monitor TID 150 strip 7 Active cephalexin (Keflex) 500 MG capsule Take 1 capsule (500 mg) by mouth Once per day. Cephalexin 500 mg every 24 hours plus 500 mg at the end of each dialysis session is suggest 10 capsule 08/16/20 4:19 PM EST Active TRUEplus Glucose 4 g chewable tablet Chew 4 tablets (16 g) if needed for low blood sugar. 50 tablet Active rosuvastatin (Crestor) 10 MG tablet Take 1 tablet (10 mg) by mouth Once per day. 90 tablet 1 Active pregabalin (Lyrica) 25 MG capsuleIndicatio ns:Peripheral polyneuropathy Take 1 capsule (25 mg) by mouth 3 times daily. 90 capsule 2 Active apixaban (Eliquis) 2.5 MG tablet Take 1 tablet (2.5 mg) by mouth 2 times daily. 60 tablet 5 Active amitriptyline (Elavil) 50 MG tabletIndication s:Type 2 diabetes mellitus with diabetic neuropathy, unspecified whether chcf insulin use ([facility]) Take 1 tablet (50 mg) by mouth at bedtime. 30 tablet 1 Active Continuous Glucose Sensor (FreeStyle Gary 2 Sensor) [facility] Apply 1 sensor every 14 days 2 each Active Ferrous Sulfate (iron) 325 (65 Fe) MG tablet Take 1 tablet (325 mg) by mouth at bedtime. 90 tablet 1 Active hydrALAZINE (Apresoline) 25 MG tablet Take 1 tablet (25 mg) by mouth 3 times daily. 90 tablet 3 Active insulin glargine (Lantus SoloStar) 100 UNIT/ML pen Inject 25 Units under the skin at bedtime. 15 mL 2 Active insulin lispro (HumaLOG) 100 UNIT/ML injectionIndicat ions:Type 2 diabetes mellitus with hyperglycemia, unspecified whether chcf insulin use ([facility]) INJECT 8-18 UNITS SUBCUTANEOUSLY THREE TIMES DAILY BEFORE BREAKFAST DIRECTED 15 mL 2 Active omeprazole (PriLOSEC) [address] capsule Take 1 capsule (20 mg) by mouth before breakfast and before evening meal. Do not crush or chew. 180 capsule Active Trulicity 1.5 MG/0.5ML solution pen-injectorIndi cations:Type 2 diabetes mellitus with other specified complication, with long-term current use of insulin ([facility]) INJECT ONE PEN (=1.5MG) SUBCUTANEOUSLY ONCE A WEEK DIRECTED 2 mL 023 2024 Discontinued(T herapy completed) FREESTYLE LITE test stripIndications :Type 2 diabetes mellitus with diabetic nephropathy, with long-term current use of insulin ([facility]) TEST BLOOD SUGAR SIX TIMES DAILY 150 strip 7 024 2024 Discontinued(R eorder (will not trigger notification to Pharmacy)) oxybutynin (Ditropan) 5 MG tablet TAKE 1 TABLET BY MOUTH EVERY 8 HOURS FOR BLADDER SPASMS 024 2024 Discontinued(T herapy completed) aspirin (Aspirin Adult Low Strength) 81 MG EC tablet Take 1 tablet (81 mg) by mouth in the morning. 90 tablet 1 024 2024 Discontinued(T herapy completed) insulin glargine (Lantus SoloStar) 100 UNIT/ML pen Inject 25 Units under the skin at bedtime. 15 mL 2 024 2024 Discontinued(R eorder (will not trigger notification to Pharmacy)) Continuous Glucose Sensor (FreeStyle Gary 2 Sensor) [facility] Apply 1 sensor every 14 days 2 each 11 024 2024 Discontinued(R eorder (will not trigger notification to Pharmacy)) hydrALAZINE (Apresoline) 10 MG tabletIndication s:Essential hypertension Take 1 tablet (10 mg) by mouth 2 times daily. 60 tablet 11 2024 Discontinued(T herapy completed) apixaban (Eliquis) 2.5 MG tablet TAKE 1 TABLET BY MOUTH TWICE DAILY IN THE MORNING AND IN THE EVENING 60 tablet 5 2024 Discontinued insulin lispro (HumaLOG) 100 UNIT/ML injectionIndicat ions:Type 2 diabetes mellitus with hyperglycemia, unspecified whether watermaster insulin use (HCC) INJECT 8-18 UNITS SUBCUTANEOUSLY THREE TIMES DAILY BEFORE BREAKFAST DIRECTED 15 mL 2 2024 Discontinued(R eorder (will not trigger notification to Pharmacy)) Ferrous Sulfate (iron) 325 (65 Fe) MG tablet TAKE 1 TABLET BY MOUTH EVERY EVENING 90 tablet 1 2024 Discontinued(R eorder (will not trigger notification to Pharmacy)) rosuvastatin (Crestor) 40 MG tablet TAKE 1 TABLET BY MOUTH AT BEDTIME 90 tablet 1 2024 Discontinued(T herapy completed) benzonatate (Tessalon) 100 MG capsule Take 1 capsule by mouth 2 times daily. 2024 Discontinued(T herapy completed) TRUEplus Glucose 4 g chewable tablet CHEW ONE TABLET NEEDED FOR LOW BLOOD SUGAR 024 2024 Discontinued(R eorder (will not trigger notification to Pharmacy)) amitriptyline (Elavil) 50 MG tabletIndication s:Type 2 diabetes mellitus with diabetic neuropathy, unspecified whether chcf insulin use (HCC) TAKE 1 TABLET BY MOUTH AT BEDTIME 30 tablet 1 2024 Discontinued omeprazole (PriLOSEC) [address] capsule Take 1 capsule (20 mg) by mouth before breakfast and before evening meal. Do not crush or chew. 180 capsule 2024 Discontinued(R eorder (will not trigger notification to Pharmacy)) doxycycline (Vibra-Tabs) 100 MG tablet Take 100 mg by mouth 2 times daily. 025 2024 Discontinued(T herapy completed) traMADol (Ultram) 50 MG tablet TAKE 1 TABLET BY MOUTH TWICE DAILY NEEDED FOR PAIN (PAIN SCALE 7-10) 2024 Discontinued(T herapy completed) amitriptyline (Elavil) 50 MG tabletIndication s:Type 2 diabetes mellitus with diabetic neuropathy, unspecified whether chcf insulin use (HCC) TAKE 1 TABLET BY MOUTH AT BEDTIME 30 tablet 1 2024 Discontinued(R eorder (will not trigger notification to Pharmacy)) Eliquis 2.5 MG tablet TAKE 1 TABLET BY MOUTH TWICE DAILY IN THE MORNING AND IN THE EVENING 60 tablet 5 2024 Discontinued(R eorder (will not trigger notification to Pharmacy)) hydrALAZINE (Apresoline) 25 MG tablet Take 1 tablet (25 mg) by mouth 3 times daily. 90 tablet 3 2024 Discontinued(R eorder (will not trigger notification to Pharmacy)) pregabalin (Lyrica) 25 MG capsuleIndicatio ns:Peripheral polyneuropathy Take 1 capsule (25 mg) by mouth 3 times daily. 90 capsule 2 2024 Discontinued(R eorder (will not trigger notification to Pharmacy)) clotrimazole-bet amethasone (Lotrisone) cream APPLY TOPICALLY TO THE AFFECTED AREA(S) TWICE DAILY FOR RASH ON FEET 2024 Discontinued(T herapy completed) cephalexin (Keflex) 500 MG capsule Take 1 capsule (500 mg) by mouth Once per day. Cephalexin 500 mg every 24 hours plus 500 mg at the end of each dialysis session is suggest 10 capsule 2024 Discontinued(R eorder (will not trigger notification to Pharmacy)) Active Problems Problem Noted Date Diagnosed Date Osteoarthritis of right knee 08/03/2025 Peripheral polyneuropathy 08/03/2025 Decreased pedal pulses 08/02/2025 Paresthesia 06/18/2025 Chronic HFrEF (heart failure with reduced ejection fraction) 06/18/2025 Acute internal jugular vein thrombosis (CMS/HCC) 09/21/2024 Overview (09/21/2024): Dx R sided IJV thrombosis, treated with eliquis, followed by hematology (Jul 2024) Assessment & Plan (09/21/2024 11:14 AM EST): Dx on Jul 2024, on eliquis, cont following with hematology Vascular problem 09/21/2024 MCC current use of insulin (CMS/HCC) 09/21 Pacemaker 09/21/2024 Progressive macular hypomelanosis 09/21/2024 Unstable gait 09/21/2024 Cardiomyopathy 05/12/2024 Malignant neoplasm of urinary bladder 05/12/2024 History of adenomatous polyp of colon 05/12/2024 Secondary renal hyperparathyroidism 05/12/2024 Basal cell carcinoma of skin 03/02/2023 Anemia of chronic disease 06/25/2021 Chronic renal failure syndrome 02/26/2021 Diabetic nephropathy associa lynda with type [...] BS numbers. Advised to follow up with Cosmetic Consultant to restart Farxiga. Ordering lab work for further evaluation. Advised to bring paperwork for Advanced Directives next visit. Follow up in 4 months. Encounters Date Type Department Care Team Description 08/16/2025 3:30 PM EST Office Visit [facility] [address] [place] [address] Catherine Jon MD Gross hematuria (Primary Dx); Colon cancer screening; Encounter for health-related screening; Type 2 diabetes mellitus with diabetic nephropathy, with long-term current use of insulin (HCC); Peripheral polyneuropathy; Type 2 diabetes mellitus with diabetic neuropathy, unspecified whether chcf insulin use (HCC); Type 2 diabetes mellitus with hyperglycemia, unspecified whether watermaster insulin use (HCC) 08/16/2025 Telephone [facility] [address] [place] [address] Catherine Jon MD 08/16/2025 Travel 08/10/2025 Patient Outreach [address] [address] Catherine Jon MD Care Coordination ([facility] Isha Do telephone call outreach) 08/06/2025 Telephone [facility] [address] [place] [phone] Catherine Jon MD 08/03/2025 Patient Outreach [address] [address] Catherine Jon MD Care Coordination ([facility] Isha Do telephone call outreach) 08/03/2025 Patient Outreach [address] [address] Catherine Jon MD Care Coordination ([facility] Isha Do telephone call outreach) 08/02/2025 1:45 PM EST Office Visit [facility] [address] [place] [address] Catherine Jon MD Decreased pedal pulses (Primary Dx); Type 2 diabetes mellitus with diabetic nephropathy, with long-term current use of insulin (HCC); Peripheral polyneuropathy; Osteoarthritis of right knee, unspecified osteoarthritis type 08/02/2025 Travel 08/01/2025 Telephone [facility] [address] [place] [address] Catherine Jon MD Chart Prep 07/27/2025 Patient Outreach [address] [address] Catherine Jon MD [facility] 07/22/[address] [address] Catherine Jon MD Type 2 diabetes mellitus with diabetic neuropathy, unspecified whether chcf insulin use (HCC) 07/20/2025 Patient Outreach [address] [phone] Catherine Jon MD Care Coordination ([facility] telephone call outreach) 07/13/2025 Patient Outreach [address] [address] Catherine Jon MD Care Coordination ([facility] telephone call outreach) 07/04/2025 Patient Outreach [address] [address] Catherine Jon MD Care Coordination ([facility] telephone call outreach) 06/29/[address] [address] Anne Talamantes DO Diabetic nephropathy associated with type 2 diabetes mellitus (HCC) 06/21/2025 Orders Only [facility] Information Management [address] [place] [address] Karoline Portillo MD 06/19/2025 Patient Outreach [address] [address] Catherine Jon MD Transition Of Care (Tcm) (HDF unscheduled) 06/18/2025 Patient Outreach [address] [address] Catherine Jon MD 06/18/[address] [place] [address] Catherine Jon MD No Show 06/18/2025 Patient Outreach [facility] [address] [place] [phone] Catherine Jon MD Transition Of Care (Tcm) (HDF unscheduled) 06/15/2025 Patient Outreach [facility] [address] [place] [phone] Catherine Jon MD Care Coordination ([facility] Isha Do chart review) 06/15/2025 Patient Outreach [facility] [address] [place], [place] [phone] Catherine Jon MD Care Coordination (C3- chart review) 06/15/2025 Patient Outreach [facility] [address] [place] [address] Catherine Jon MD 06/05/2025 Refill [facility] [address] [place] [phone] Catherine Jon MD 05/25/2025 Refill [facility] [address] [place] [address] Catherine Jon MD Type 2 diabetes mellitus with diabetic neuropathy, unspecified whether chcf insulin use ([facility]) from Last 3 Months Immunizations Immunization Administration [...] Tobacco: Never Tobacco Cessation:Counseling Given: Not Answered Depression Answer Date Recorded Patient Health Questionnaire-9 [...] Mass Index 26.8 08/16/2025 3:08 PM EST Plan of Treatment Health Maintenance Due Date Last Done Comments CT Colonography 1965 FIT DNA/Cologuard 1965 FIT 1965 FOBT 1965 HIV Screening 1965 Sigmoidoscopy 1963 Derm Melanoma Skin Check 03/07/1964 Eye Exam 1973 Hepatitis C Screening 1981 Pap Smear 1984 RSV Patients and Patients Aged 60 years or older (1 - Risk 50-74 years 1-dose series) 2013 Zoster Vaccines (1 of 2) 2013 Colonoscopy 03/08/2024 03/08/2019 Colorectal Cancer Screening 03/08/2024 Lipid Panel 03/03/2025 03/03/2024, 07/28, 10/24/2021, Additional history exists COVID-19 Vaccine ( season) 2025 03/20/2022, 08/18/2021, 07/28/2021 Influenza Vaccine (#1) 2025 , 07/28/2021, 07/08/2017, Additional history exists Cervical Cancer Screening 11/22/2025 HPV/Cotest 11/22/2025 11/22/2020, 07/23/2017 Depression Monitoring 01/30/2026 08/02/2025, 025 Diabetes: Hemoglobin A1C 01/30/2026 025, 09/21/2024, 03/27/2024, Additional history exists Mammogram 02/24/2026 02/25/2024, 09/27, 10/15/2022, Additional history exists Alcohol/Substance Use Screening 08/02/2026 08/02/2025 Diabetes: Foot Exam 08/02/2026 08/02/2025, 08/02/2025, 08/02/2025, Additional history exists Disability Screening 08/02/2026 08/02/2025 SDOH Screening 08/02/2026 08/02/2025 Tobacco Screening 08/16/2026 08/16/2025 DTaP/Tdap/Td Vaccines (4 - Td or Tdap) [...] on patient's age to complete this topic Goals Goal Patient Goal Type Associated Problems [...] chronic kidney disease No Catherine Jon MD Procedures Procedure Name Priority Date/Time Associated Diagnosis Comments POCT GLYCATED HEMOGLOBIN, TOTAL Routine 08/02/2025 2:03 PM EST Type 2 diabetes mellitus with diabetic nephropathy, with long-term current use of insulin (HCC) POCT GLUCOSE Routine 08/02/2025 2:02 PM EST Type 2 diabetes mellitus with diabetic nephropathy, with long-term current use of insulin (HCC) PET/CT BONE SKULL BASE TO MID THIGH Routine 06/20/2025 1:51 PM EDT LIPID PANEL, STANDARD Routine 03/03/2024 1:43 PM EDT Other fatigue BI MAMMOGRAM SCREENING TOMOSYNTHESIS BILATERAL Routine 02/25/2024 3:03 PM EDT HPV MRNA E6/E7 REFLEX TO HPV 16, 18/45 Routine 11/22/2020 12:00 AM EST HM COLONOSCOPY Routine 03/08/2019 11:49 AM EDT from Last 3 Months or Most Recently Relevant to Health Maintenance Results * (ABNORMAL) POCT Hgb A1c (08/02/2025 2:03 PM EST) Hemoglobin A1C 6.0(A) 4.0 - 5.7 % Blood 08/02/2025 2:03 PM EST Catherine Jon MD POINT OF CARE TEST ENTER/EDIT ORDERABLES Final Result * POCT Glucose (08/02/2025 2:02 PM EST) Glucose Blood, POC 119 60 - 200 mg/dL Blood Capillary blood specimen / Unknown 08/02/2025 2:02 PM EST Catherine Jon MD POINT OF CARE TEST ENTER/EDIT ORDERABLES Final Result * PET/CT Bone Skull Base to Mid Thigh (06/20/2025 1:51 PM EDT) Anatomical Region Laterality Modality Body Computed Tomogra phy Historical Provider IMG CT PROCEDURES Final R esult * (ABNORMAL) Lipid Panel, Standard (03/03/2024 1:43 PM EDT) Triglycerides 201(H) <150 mg/dL [facility] Comment:Desirable Triglyceri de: less than 150 mg/dLBorderline High Triglyceride 150-199 mg/dLHigh Triglyceride: 200-499 mg/dLVery High Triglyceride: greater than or equal to 5OO mg/dL Cholesterol 146 <200 mg/dL [facility] Comment:Desirable Cholestero l: less than 200 mg/dLBorderline High Cholesterol: 200-239 mg/dLHigh Cholesterol: greater than 239 mg/dL LDL Cholesterol Calculated 69 <100 mg/dL [facility] Comment:Desirable LDL: less than 100 mg/dLNear Optimal/Above Optimal LDL: 110- 129 mg/dLBorderline High LDL: 130-159 mg/dLHigh LDL: 160-189 mg/dLVery High LDL: greater than or equal to 190 mg/dL HDL Cholesterol 37(L) >40 mg/dL [facility] Comment:Desirable HDL: great er than 40 mg/dL Note: This HDL assay may give artificially low results in patients with liver disease. Blood Venous blood specimen / Unknown 03/03/2024 1:43 PM EDT 03/03/2024 3:58 PM EDT us Aby Vazquez MD LAB BLOOD ORDERABLES Final Resul t [facility] [address] [place] [address] [phone] * BI Mammogram Screening Tomosynthesis Bilateral (02/25/2024 3:03 PM EDT) Anatomical Region Laterality Modality Breast Bilateral Mammography 02/25/2024 3:03 PM EDT Narrative 03/21/2024 4:41 PM EDT [facility] [address] [place] [address] Mammography Report Signed Patient: Jazmine Max MR#: [id number] : 1965 Acct:[id number] Age/Sex: 58 / F ADM Date: 02/25/24 Loc: HO.MAMMO Attending Dr: Anne Talamantes DO Ordering Physician: Anne Talamantes DO Results: 1N egative Date of Service: 02/25/24 Follow Up: 1 Year From Orig inal Mammogram Procedure(s): MM tomosynthesis screening BI Accession Number(s): [id number] cc: Anne Talamantes DO EXAMINATION: MM SCREENING [...] in OV> 03/21/24 1637 DD/ 1503 TD/TT: Rubber Goods Inspector Tester: Procedure Note Donotuseinterpreter, Image - 03/21/2024 [facility] [address] [place] [address] Mammography Report Signed Patient: Jazmine MaxMR#: [id number] : 1965Acct:[id number] Age/Sex: 58 / FADM Date: 02/25/24 Loc: VENES[facility] Attending Dr: Anne Talamantes DO Ordering Physician: Anne Talamantesults: 1N egative Date of Service: 02/25/24Follow Up: 1 Year From Orig inal Mammogram Procedure(s): MM tomosynthesis screening BI Accession Number(s): [id number] cc: Anne Talamantes DO EXAMINATION: MM SCREENING [...] in OV> 03/21/24 1637 DD/ 1503 TD/TT: Rubber Goods Inspector Tester: Anne Talamantes DO IMG BI PROCEDURES Final Resu lt * HPV mRNA E6/E7 REFLEX TO HPV 16, 18/45 (11/22/2020 12:00 AM EST) HPV nRNA E6/E7 Not Detected Not Detected [facility] Comment: Methodology: Refrigerator Crater-Mediated Amplification This assay detects E6/E7 viral messenger RNA (mRNA) from 14 high-risk HPV types (16,18,31,33,35,39,45,51,52,56,58,59,66,68). The analytical performance characteristics of this assay have been determined by [employer]. The modifications have not been cleared or approved by the FDA. This assay has been validated pursuant to the CLIA regulations and is used for clinical purposes. For additional information, please refer to http://education.[employer]orkShare/FAT556y4 (This link if provided for information/ educational purposes only.) 11/22/2020 Anne Talamantes DO LAB CYTOLOGY ORDERABLES Jolanta wall Result [facility] [address] [place] [address], * Hm Colonoscopy (03/08/2019 11:49 AM EDT) Historical Provider MD HEALTH MAINTENANCE Final Result from Last 3 Months or Most Recently Relevant to Health Maintenance Additional Health Concerns Active Problems Noted Date [...] 08/16/2025 Patient has chronic kidney disease 08/16/2025 Insurance [facility] C3 Care Teams Bacon De Rinder Relationship Specialty Start Date End Date Catherine Jon MD [address] [place] [address] KASSANDRA ROSSI [address] PCP - General Family Medicine 09/21/24 [facility] 07/26/24 Blaire Alcantara MD [facility] [address] [place] [address] [address] [place] [address] Medical Oncologist Hematology and Oncology 09/21/24 Jung Maxwell MD [facility] [address] [place] [address] [place] [address] Consulting Physician Urology 09/21/24 Bryant Ferro DO Consulting Physician Cardiology 09/21/24 [facility] [address] [place] [address] Consulting Physician Nephrology 09/21/24 Denilson Fay MD, PhD [facility] [address] [address] Consulting Physician Ophthalmology 09/21/24 [employer], [facility] Agency [address] [place] [address] Personal Care Services 09/21/24
--- OUTSIDE RECORDS SUMMARY | 2025-08-17 13:18 | XMS_ITS | Encounter Summary ---
Author Organization [employer] Address [address] [facility] [address] [place] [address] Care Team Providers Care Municipal Clerk Name Role Phone Catherine Jon MD Primary Care Provider Kyle Velez RN Unavailable [phone] Isha Do Unavailable Reason for Visit * Reason Comments Med Refill Encounter Details Date Type Department Care Team (Late st Contact Info) Description 11/08/[address] [facility] [address] [place], [place] [phone] Anne Talamantes DO [address] [place], [place] [phone] Social History Tobacco Use Types Packs/Day Years [...] on filedocumented in this encounter Care Teams Municipal Clerk Relationship Specialty Start Date End Date Catherine Jon MD [address] [place] [address] PCP - General Family Medicine 09/21/24 Kyle Velez, TYESHA [address] [place] [address] Registered Nurse Family Medicine 06/15/25 08/10/25 Isha Do 06/15/25 08/10/25 [facility] 07/26/24 Blaire Alcantara MD [facility] [address] [place] [address] [address] [place] [address] Medical Oncologist Hematology and Oncology 09/21/24 Jung Maxwell MD [facility] [address] [place] [address] [place] [address] Consulting Physician Urology 09/21/24 Bryant Ferro DO Consulting Physician Cardiology 09/21/24 [facility] [address] [place] [address] Consulting Physician Nephrology 09/21/24 Denilson Fay MD, PhD [facility] [address] [place] [address] Consulting Physician Ophthalmology 09/21/24 [employer], STATISTICAL REPORTING ANALYST Agency [address] [place] [address] Personal Care Services 09/21/24 documented as of this encounter
--- OUTSIDE RECORDS SUMMARY | 2025-08-17 13:18 | XMS_ITS | Patient Health Record ---
Author Organization Estuardo Kenyon III, MD Address [address] [place] [address] Care Team Providers Care Teaching Aide Name Role Phone YENI SALGUERO Primary Care Provider Dr. Estuardo Kenyon III [facility] [phone] Allergies Allergen (clinical drug ingredient) Drug/Non Drug [...] Problem Status W/U Status Risk Notes Problem 104344091 Anemia in chronic kidney disease (D63.1) Active confirmed Her blood pressure is currently 139/69 and no change in her regimen as needed. 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 Problem 883321457 terminologist (current) use of insulin (Z79.4) Active confirmed Problem 569553973 Pacemaker (Z95.0) Active confirmed Problem 390958921 History of adenomatous polyp of colon (Z86.010) Active confirmed Problem 08960351 Hypertension, unspecified type (I10) Active confirmed Problem 47950586 Chronic renal failure, stage 4 (severe) (N18.4) Active confirmed We have mad e the cracker sprayer aware of the situation. The fistula in the left upper lung appears to be maturing well. The dialysis catheter and right upper chest wall is intact and seems to function normally. Problem 259695468 Malignant neoplasm of urinary bladder, unspecified site (C67.9) Active confirmed The tumor appears to be widespread. We will need to review the images with the radiologist to clarify the nature of the mass in or I can tellnear the right kidney. Problem 68064493 Cardiomyopathy, unspecified type (I42.9) Active confirmed Problem 625660205606048240 Progressive macular hypomelanosis (L81.6) Active confirmed Problem 170935864 AVF (arteriovenous fistula) (I77.0) Active confirmed Problem 19667620 End-stage renal disease (N18.6) Active confirmed Problem 85569063 Type 2 diabetes mellitus with diabetic nephropathy, unspecified whether terminologist insulin use (E11.21) Active confirmed Diabetes currently seems well controlled. Plan Of Treatment No Information Insurance Providers Payer Name Payer Address Payer Phone Subscriber Number Group Number Insured Name Patient Relationship to Insured Coverage Start Date Coverage End Date [place] [address] KASSANDRA GONZALEZ [id number] Jazmine Max Self - patient is the insured
--- OUTSIDE RECORDS SUMMARY | 2025-08-17 13:18 | XMS_ITS | Encounter Summary ---
Author Organization [facility] Address [address] [place] [address] Care Team Providers Care Solidworks Designer Name Role Phone Catherine Jon MD Primary Care Provider [phone] Reason for Visit * Reason Onset Date Comments Prior Authorization 07/24/2025 08/07/25 Dr. Freddie Campoverde Encounter Details Date Type Department Care Team (Late st Contact Info) Description 07/24/2025 Telephone General Surgery - [address] [place] [address] Freddie Campoverde MD [address] [place] [address] [phone] Social History Tobacco Use Types Packs/Day Years Used Date Smoking Tobacco: Never Assessed Comments Unknown Sex and Gender Information Value Date Recorded Sex Assigned at Not on file Legal Sex Female 3:43 PM EDT Gender Identity Not on file Sexual Orientation Not on file documented as of this encounter Progress Notes * Saloni Sharp - 07/24/2025 2:57 PM EDT She is having surgery with Dr. Kingsley Campoverde on 08/07/25 at [facility]. She has Shoozy for insurance thru the [facility]. I called and asked them for a referral. documented in this encounter Plan of Treatment Not on file documented as of this encounter Goals Goal Patient Goal Type Associated Problems Recent Progress Patient-Stated? Author Autogenerat ed Goal Care Plan Autogenerated Problem No Freddie Campoverde MD documented as of this encounter Visit Diagnoses Not on filedocumented in this encounter Additional Health Concerns Active Problems Noted Date Diagnosed Date Autogenerated Problem 08/08/2025 documented as of this encounter Care Teams Solidworks Designer Relationship Specialty Start Date End Date Catherine Jon MD [address] [place] [address] PCP - General Family Medicine 06/07/25 documented as of this encounter
--- OUTSIDE RECORDS SUMMARY | 2025-08-17 13:18 | XMS_ITS | Encounter Summary ---
Author Organization [employer] Address [address] [facility] 7t [place] [address] Care Team Providers Care Ibm Bpm Architect Name Role Phone Catherine Jon MD Primary Care Provider [phone] Kyle Velez RN Unavailable [phone] Isha Do Unavailable Encounter Details Date Type Department Care Team ([facility] st Contact Info) Description 01/06/2024 Orders Only [facility] MEDICINE [address] [place], [place] [phone] Provider, MD Karoline Social History Tobacco Use [...] on filedocumented in this encounter Care Teams Ibm Bpm Architect Relationship Specialty Start Date End Date Catherine Jon MD 505 [place] [address] PCP - General Family Medicine 09/21/24 Kyle Velez, RN [address] [place], [place] [phone] Registered Nurse Family Medicine 06/15/25 08/10/25 Isha Do 06/15/25 08/10/[facility] Blaire Alcantara MD [facility] [address] [facility] [address] [place] [address] Medical Oncologist Hematology and Oncology 09/21/24 Jung Maxwell MD [facility] [address] [place] [address] [place] [address] Consulting Physician Urology 09/21/24 Bryant Ferro DO Consulting Physician Cardiology 09/21/24 [facility] [address] [place] [address] Consulting Physician Nephrology 09/21/24 Denilson Fay MD, PhD [facility] [address] [place] [address] Consulting Physician Ophthalmology 09/21/24 [employer], FIELD ARTILLERY FIRE CONTROL MAN Agency [address] [place] [address] Personal Care Services 09/21/24 documented as of this encounter
--- OUTSIDE RECORDS SUMMARY | 2025-08-17 13:18 | XMS_ITS | Encounter Summary ---
Author Organization [employer] Address [address] [facility] 7t [place] [address] Care Team Providers Care Energy Systems Engineer Name Role Phone Catherine Jon MD Primary Care Provider [phone] Kyle Velez RN Unavailable [phone] Isha Do Unavailable Encounter Details Date Type Department Care Team (Late st Contact Info) Description 06/21/2025 Orders Only [facility] [address] [place] [address] Provider, MD Karoline Social History Tobacco Use [...] on filedocumented in this encounter Care Teams Energy Systems Engineer Relationship Specialty Start Date End Date Catherine Jon MD [address] [place] [address] PCP - General Family Medicine 09/21/24 Kyle Velez, TYESHA [address] [place] [address] Registered Nurse Family Medicine 06/15/25 08/10/25 Isha Do 06/15/25 08/10/25 [facility] 07/26/24 Blaire Alcantara MD [facility] On[facility] Center [address] [place] [address] [address] [place] [address] Medical Oncologist Hematology and Oncology 09/21/24 Jung Maxwell MD [facility] [address] [place] [address] [place] [address] Consulting Physician Urology 09/21/24 Bryant Ferro DO Consulting Physician Cardiology 09/21/24 [facility] [address] [place] [address] [phone] Consulting Physician Nephrology 09/21/24 Denilson Fay MD, PhD [facility] [place] - [address] [address] Consulting Physician Ophthalmology 09/21/24 Daniel Latif, [facility] Agency [address] [place] [address] Personal Care Services 09/21/24 documented as of this encounter
--- OUTSIDE RECORDS SUMMARY | 2025-08-17 13:18 | XMS_ITS | Encounter Summary ---
Author Organization [employer] Address [address] [facility] 7t [place] [address] Care Team Providers Care Director Radiation Oncology Name Role Phone Catherine Jon MD Primary Care Provider [phone] Kyle Velez RN Unavailable [phone] Isha Do Unavailable Reason for Visit * Reason Comments Med Refill Encounter Details Date Type Department Care Team (Late st Contact Info) Description 02/26/2023 Refill [facility] MEDICINE [address] [place], [place] [phone] Claribel Dalton MD [address] [place], [place] [phone] Type 2 diabetes mellitus with hyperglycemia, unspecified whether [facility] insulin use ([facility]/HCC) Social History Tobacco Use Types Packs/Day Years [...] 2 diabetes mellitus with hyperglycemia, unspecified whether 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 (HCC) documented in this encounter Care Teams Director Radiation Oncology Relationship Specialty Start Date End Date Catherine Jon MD [address] [place], [place] [phone] PCP - General Family Medicine 09/21/24 Kyle Velez, RN [address] [place], [place] [phone] Registered Nurse Family Medicine 06/15/25 08/10/25 Isha Do 06/15/25 08/10/25 [facility] Blaire Alcantara MD [facility] Center [address] [facility] [address] [place] [address] Medical Oncologist Hematology and Oncology 09/21/24 Jung Maxwell MD [facility] [address] [place] [address] [place] [address] Consulting Physician Urology 09/21/24 Bryant Ferro DO Consulting Physician Cardiology 09/21/24 [facility] [address] [place] [address] Consulting Physician Nephrology 09/21/24 Denilson Fay MD, PhD [facility] [address] [place], [place] [phone] Consulting Physician Ophthalmology 09/21/24 [employer], SWITCH MAKER Agency [address] [place] [address] Personal Care Services 09/21/24 documented as of this encounter
--- OUTSIDE RECORDS SUMMARY | 2025-08-17 13:18 | XMS_ITS | Clinical Summary ---
Author Organization [facility] Address [address] [place] [address] [place] [address] Phone Care Team Providers Care Regional Transfer Liaison Name Role Phone Anne Talamantes DO Primary [...] 9.2 8.7 - 10.7 mg/dL eGFR Non-Afr Colombian 14 Total Bilirubin 0.4 MG/DL Bilirubin Direct [...] Insurance Medicaid [place] Medicaid [place] Care Teams Regional Transfer Liaison Relationship Specialty Start Date End Date Anne Talamantes DO [address] [place] [address] PCP - General 10/07/20
--- OUTSIDE RECORDS SUMMARY | 2025-08-17 13:18 | XMS_ITS | Encounter Summary ---
Author Organization [employer] Address [address] [facility] 7t [place] [address] Care Team Providers Care Licensing Manager Name Role Phone Catherine Jon MD Primary Care Provider [phone] Kyle Velez RN Unavailable [phone] Isha Do Unavailable Encounter Details Date Type Department Care Team ([facility] st Contact Info) Description 01/21/2023 Orders Only [facility] CH[facility] MED & PEDS [address] [facility] [place] [address] Anne Gama LPN Social History Tobacco Use [...] on filedocumented in this encounter Care Teams Licensing Manager Relationship Specialty Start Date End Date Catherine Jon MD [address] [facility] [place] [address] PCP - General Family Medicine 09/21/24 Kyle Velez, RN 505 [place] [address] Registered Nurse Family Medicine 06/15/25 08/10/25 Isha Do 06/15/25 08/10/25 [facility] 07/26/24 Blaire Alcantara MD [facility] Oncology Center [address] [facility] [address] [place] [address] Medical Oncologist Hematology and Oncology 09/21/24 Jung Maxwell MD [facility]rology Center [address] [place] [address] [place] [address] Consulting Physician Urology 09/21/24 Bryant Ferro DO Consulting Physician Cardiology 09/21/24 [facility] [address] [place] [address] [phone] Consulting Physician Nephrology 09/21/24 Denilson Fay MD, PhD [facility] [address] [place], [place] [phone] Consulting Physician Ophthalmology 09/21/24 [employer], REAGENT TENDER HELPER Agency 25 [place] [address] Personal Care Services 09/21/24 documented as of this encounter
--- OUTSIDE RECORDS SUMMARY | 2025-08-17 13:18 | XMS_ITS | Encounter Summary ---
Author Organization [employer] Address [address] [facility] 7t h Floor [place] [id number] Care Team Providers Care Tube Maker Name Role Phone Catherine Jon MD Primary Care Provider [phone] Kyle Velez RN Unavailable [phone] Isha Do Unavailable Encounter Details Date Type Department Care Team (Late st Contact Info) Description 11/23/2022 Orders Only [facility] MEDICINE 230 [place] [address] Ana Cristina Haq LPN Social History Tobacco [...] filedocumented in this encounter Care Teams Tube Maker Relationship Specialty Start Date End Date Catherine Jon MD 505 [place] [address] PCP - General Family Medicine 09/21/24 Kyle Velez, RN 505 [place] [address] Registered Nurse Family Medicine 06/15/25 08/10/25 Isha Do 06/15/25 08/10/25 [facility] 07/26/24 Blaire Alcantara MD [facility] On[facility] Center [address] [facility] [address] [place] [address] Medical Oncologist Hematology and Oncology 09/21/24 Jung Maxwell MD [facility] Center [address] [place] [address] Dr Chris [address] [place] [address] Consulting Physician Urology 09/21/24 Bryant Ferro DO Consulting Physician Cardiology 09/21/24 [facility] [address] [place] [address] [phone] Consulting Physician Nephrology 09/21/24 Denilson Fay MD, PhD [facility] 180 [place] [address] Consulting Physician Ophthalmology 09/21/24 [employer], SHOE DYER Agency 25 [place] [address] Personal Care Services 09/21/24 documented as of this encounter
--- OUTSIDE RECORDS SUMMARY | 2025-08-17 13:18 | XMS_ITS | Encounter Summary ---
Author Organization [employer] Address [address] [facility] 7t [place] [address] Care Team Providers Care Patient Accounts Specialist Name Role Phone Catherine Jon MD Primary Care Provider [phone] Kyle Velez RN Unavailable [phone] Isha Do Unavailable Reason for Visit * Reason Onset Date Comments Call Back Request 11/23/2024 Encounter Details Date Type Department Care Team ([facility] st Contact Info) Description 11/23/2024 Telephone [facility] MEDICINE [address] [place], [place] [phone] Catherine Jon MD [address] [place], [place] [phone] Call Back Request Social History Tobacco Use [...] from pt requesting a call back from [employer]. Contact pt at [phone] documented in this encounter Plan of Treatment Not on file documented as of this encounter Visit Diagnoses Not on filedocumented in this encounter Care Teams Patient Accounts Specialist Relationship Specialty Start Date End Date Catherine Jon MD 505 [place] [address] PCP - General Family Medicine 09/21/24 Kyle Velez, RN 505 [place] [address] Registered Nurse Family Medicine 06/15/25 08/10/25 Isha Do 06/15/25 08/10/25 [facility] 07/26/24 Blaire Alcantara MD [facility] Oncology Center [address] [place] [address] St [address] [place] [address] Medical Oncologist Hematology and Oncology 09/21/24 Jung Maxwell MD [facility] Urology Center [address] [place] [address] [place] [address] Consulting Physician Urology 09/21/24 Bryant Ferro DO Consulting Physician Cardiology 09/21/24 [facility] [address] [place] [address] [phone] Consulting Physician Nephrology 09/21/24 Denilson Fay MD, PhD [facility] [place] - [address] [address] Consulting Physician Ophthalmology 09/21/24 [employer], WINDSMITH Agency [address] [place] [address] Personal Care Services 09/21/24 documented as of this encounter
--- OUTSIDE RECORDS SUMMARY | 2025-08-17 13:18 | XMS_ITS | Encounter Summary ---
Author Organization [employer] Address [address] [facility] 7t [place] [address] Care Team Providers Care Steam Shovel Oiler Name Role Phone Catherine Jon MD Primary Care Provider [phone] Kyle Velez RN Unavailable [phone] Isha Do Unavailable Encounter Details Date Type Department Care Team ([facility] st Contact Info) Description 03/02/2023 Orders Only [facility] CHC MED & PEDS [address] [facility] [place] [address] Anne Gama LPN Social History Tobacco Use [...] on filedocumented in this encounter Care Teams Steam Shovel Oiler Relationship Specialty Start Date End Date Catherine Jon MD 505 [facility] [place] [address] PCP - General Family Medicine 09/21/24 Kyle Velez, RN [address] [place] [address] Registered Nurse Family Medicine 06/15/25 08/10/25 Isha oD 06/15/25 08/10/25 [facility] 07/26/24 Blaire Alcantara MD [facility] [address] [facility] [address] [place] [address] Medical Oncologist Hematology and Oncology 09/21/24 Jung Maxwell MD [facility] [address] [place] [address] [place] [address] Consulting Physician Urology 09/21/24 Bryant Ferro DO Consulting Physician Cardiology 09/21/24 [facility] [address] [place] [address] [phone] Consulting Physician Nephrology 09/21/24 Denilson Fay MD, PhD [facility] 180 [place], [place] [phone] Consulting Physician Ophthalmology 09/21/24 [employer], ASSEMBLER ADJUSTER Agency [address] [place] [address] Personal Care Services 09/21/24 documented as of this encounter
--- OUTSIDE RECORDS SUMMARY | 2025-08-17 13:18 | XMS_ITS | Clinical Summary ---
Author Organization [facility] Address [address] [place] [phone] Phone Care Team Providers Care Hospital Aide Name Role Phone Catherine Jon MD Primary Care Provider [phone] Allergies No known active allergies Medications sevelamer [...] 25 Units under the skin at bedtime. 4 Active insulin lispro (HumaLOG KwikPen) 100 unit/mL injection pen INJECT 8-18 UNITS SUBCUTANEOUSLY THREE TIMES DAILY BEFORE BREAKFAST DIRECTED 9 Active oxyCODONE (ROXICODONE) 5 mg immediate release tablet Take 1 tablet (5 mg total) by mouth every 6 (six) hours if needed for severe pain. Max Daily Amount: 20 mg 6 tablet 5 Active Active Problems Problem Noted Date Diagnosed Date Pacemaker 08/07/2025 Vascular problem 08/07/2025 ESRD (end stage renal disease) ([facility] V24, [facility] V28) 07/05/2025 Encounters Date Type Department Care Team Description 08/07/2025 7:55 AM EST Anesthesia Event [facility] Main OR [address] [place] [address] Juan Jimenez MD Sandjo, Hyancinthe, SRNA 08/07/2025 7:30 AM EST - 08/07/2025 10:00 AM EST Surgery [facility] Main OR [address] [place] [address] Freddie Campoverde MD RIGHT DIALYSIS GRAFT INSERTION [[id number] (CPT )] 08/07/2025 5:33 AM EST - 08/07/2025 12:30 PM EST Hospital Encounter [facility] Main OR [address] [place] [address] Freddie Campoverde MD Discharge Disposition: Home or Self Care 07/24/2025 Telephone General Surgery [facility] [address] [phone] Freddie Campoverde MD 07/05/2025 Telephone General [facility] [address] [phone] Freddie Campoverde MD 07/04/2025 Telephone General Surgery [address] [phone] Freddie Campoverde MD 06/20/2025 9:29 AM EDT - 06/20/2025 11:59 PM EDT Hospital Encounter [facility] PET Scan [address] [place] [phone] Malignant neoplasm of bladder, unspecified ([facility] V24, [facility] V28) Discharge Disposition: Home or Self Care 06/07/2025 1:30 PM EDT Consult [address] [phone] Freddie Campoverde MD End stage renal disease ([facility] V24, [facility] V28) from Last 3 Months Surgical History Surgery Date Site/Laterality Comments OTHER SURGICAL HISTORY Left ARM SURGERT FX ANKLE FRACTURE SURGERY 09/27/2011 - 09/26/2012 PACEMAKER IMPLANT Left AV FISTULA PLACEMENT Left Medical History Medical History Date Comments Fractures Hypertension Diabetes mellitus ([facility] V24, [facility] V28) Chronic kidney disease Cancer ([facility] V24, [facility] V28) BLADDER History of chemotherapy BLADDER CA Dialysis patient ([facility] V24) E XSISTING PERMACATH Hyperlipidemia PVD (peripheral vascular disease) ([facility] V24) Social History Tobacco Use Types Packs/Day Years Used Date Smoking Tobacco: Never Smokeless Tobacco: Never Tobacco Cessation:Counseling Given: Not Answered Alcohol Use Standard Drinks/Week Comments Never 0 (1 standard drink = 0.6 oz pur e alcohol) Comments Unknown Sex and Gender Information Value Date Recorded Sex Assigned at Not on file Legal Sex Female 3:43 PM EDT Gender Identity Not on file Sexual Orientation Not on file Obstetrics History Last Filed Vital Signs Vital Sign Reading Time Taken Comments Blood Pressure 107/53 08/07/2025 11:14 AM EST Pulse 92 08/07/2025 11:14 AM EST Temperature 36.8 C (98.2 F) 08/07/2025 11:14 AM EST Respiratory Rate 20 08/07/2025 11:14 AM EST Oxygen Saturation 100% 08/07/2025 11:14 AM EST Inhaled Oxygen Concentration - - Weight 61.2 kg (135 lb) 08/07/2025 6:29 AM EST Height 154.9 cm (5' 1 ) 08/07/2025 6:29 AM EST Body Mass Index 25.51 08/07/2025 6:29 AM EST Plan of Treatment Health Maintenance Due Date Last Done Comments Breast Cancer Screening 1963 Colorectal Cancer Screening: Colonoscopy 1963 Diabetes: Annual Foot Exam 1973 Diabetes: Annual Retina Eye Exam 1973 Cervical Cancer Screening: Pap Smear 1984 RSV Immunization Adult Patients (1 - Risk 50-74 years 1-dose series) 2013 Zoster Vaccines (1 of 2) 2013 HIV Screening 07/19/2024 Hepatitis C Screening 07/19/2024 Social Influencers of Health Screening 07/19/2024 Depression Screening 09/27/2024 Diabetes: Annual Urine Albumin-Creatinine Ratio (uACR) 10/19/2024 COVID-19 Vaccine ( season) 2025 03/20/2022, 08/18/2021, 07/28/2021 Influenza Vaccine (#1) 2025 , 07/28/2021, 07/08/2017, Additional history exists Diabetes: Blood Sugar Control Test (HGBA1C) 01/30/2026 08/02/2025, 09/21/2024 Diabetes: Annual GFR (Glomerular Filtration Rate) 08/07/2026 08/07/2025, 08/08/2024, 08/07/2024, Additional history exists Hypertension/CHF/CAD Annual BMP Blood Test 08/07/2026 08/07/2025, 08/08/2024, 08/07/2024, Additional history exists Cholesterol Screening (Lipid Panel) 03/03/2029 03/03/2024 DTaP,Tdap,and [...] Plan Autogenerated Problem No Freddie Campoverde MD Medical Devices Implanted Type Area Lawnmower Repair Mechanic Device Identifier Shelf Expiration Date Model / Serial / Lot Hemostat Absorb Surgicel Nu-Knit 3x4in - Sna - [id number] Implanted:Qty: 1 on 08/07/2025 by Freddei Campoverde MD at [facility] Hemostasis Right: Jose [employer] [id number] 02/24/2030 [id number] / NA / [id number] Graft Vasc Propaten 4-7mm 45cm - [id number] - [id number] Implanted:Qty: 1 on 08/07/2025 by Freddie Campoverde MD at [facility] Vascular Grafts Right: [employer] 01/27/2028 [id number] / [id number] / N/A Procedures Procedure Name Priority Date/Time Associated Diagnosis Comments POCT GLUCOSE BLOOD Routine 08/07/2025 11:27 AM EST OXYGEN THERAPY, ADULT Routine 08/07/2025 10:08 AM EST TH AN LMA(NO CHARGE) Routine 08/07/2025 8:16 AM EST ME CREATION AV FISTULA OTHER THAN DIRECT AV ANASTOMOSIS NONAUTOGENOUS GRAFT 08/07/2025 7:52 AM EST ESRD (end stage renal disease) (CMS/HCC V24, CMS/HCC V28) Special Needs Creation fistula AV graft - asking 120 minutes for this case TH AN NERVE BLOCK SUPRACLAVICULAR (NO CHARGE) Routine 08/07/2025 7:37 AM EST TH AN NERVE BLOCK SUPRACLAVICULAR (CHARGE) Routine 08/07/2025 7:37 AM EST POCT GLUCOSE BLOOD Routine 08/07/2025 6: 15 AM EST CBC WITH AUTO DIFFERENTIAL Routine 08/07/2025 6:13 AM EST CBC AND DIFFERENTIAL Routine 08/07/2025 6:13 AM EST BASIC METABOLIC PANEL Routine 08/07/2025 6:[address] SKULL TO MID THIGH SUBSEQUENT Routine 06/20/2025 11:42 AM EDT Malignant neoplasm of bladder, unspecified (CMS/HCC V24, CMS/HCC V28) from Last 3 Months Results * (ABNORMAL) POCT Glucose, blood (08/07/2025 11:27 AM EST) Only the most recent of2 resultswithin the time period is included. Glucose POCT 194(H) 70 - 100 mg/dL 08/07/2025 11:28 AM EST [facility] Blood Capillary blood specimen / Unknown 08/07/2025 11:27 AM EST 08/07/2025 11:29 AM EST us Freddie Campoverde MD LAB POINT OF CARE TEST DOCKED DEVICE UNSOLICITED RESULTS Final Result [facility] [address] [place] [address], [place] [phone] * TH AN LMA(NO CHARGE) (08/07/2025 8:16 AM EST) Vern Garcia SRNA - 08/07/2025 8:16 AM EST MYLES Nunn 08/07/2025 8:20 AM General Information and Staff Patient location during procedure: OR Anesthesiologist: Juan Jimenez MD Resident/CHIEF OF PARTY: Yash Johnson CRNA Other anesthesia staff: MYLES Nunn Performed by: MYLES Nunn Authorized by: Juan Jimenez MD Intubation Airway not difficult Reason: elective Final Airway Details LMA Size: 4 LMA Type: Unique LMA Seal Pressure: Final airway type: LMA Indications and Patient Condition Indications for airway management: anesthesia Sedation level: Yes Preoxygenated: yesSoft Tissue Damage: No Dentition Unchanged: Yes Patient position: neutral MILS maintained throughout Mask difficulty assessment: 0 - not attempted us Juan Jimenez MD ANESTHESIA ORDERABLES Final Re sult * TH AN NERVE BLOCK SUPRACLAVICULAR (CHARGE), TH AN NERVE BLOCK SUPRACLAVICULAR (NO CHARGE) (08/07/2025 7:37 AM EST) Juan Paredes MD - 08/07/2025 7:37 AM EST Juan Jimenez MD 08/07/2025 10:10 AM Peripheral Block Patient location during procedure: holding area Start time: 08/07/2025 7:37 AM End time: 08/07/2025 7:42 AM Reason for block: at surgeon's request Staffing Performed: anesthesiologist Anesthesiologist: Juan Jimenez MD Preanesthetic Checklist Completed: patient identified, IV checked, site marked, risks and benefits discussed, surgical consent, monitors and equipment checked, pre-op evaluation and timeout performed Peripheral Block Patient position: supine Prep: ChloraPrep Patient monitoring: heart rate, casserole preparer and continuous pulse ox Block type: supraclavicular Laterality: right Injection technique: single-shot Guidance: nerve stimulator and ultrasound guided Local infiltration: lidocaine Needle Needle type: short-bevel Needle gauge: 20 G Needle length: 9 cm Needle localization: ultrasound guidance Medications Administered ropivacaine (NAROPIN) injection 0.5 % - infiltration 20 mL - 08/07/2025 7:37:00 AM Assessment Injection assessment: negative aspiration for heme, no paresthesia on injection, incremental injection with negative aspiration q 5ml and local visualized surrounding nerve on ultrasound Paresthesia pain: none Heart rate change: no Slow fractionated injection: no Additional Notes CLONIDINE 100mcg added to injection solution For post-op pain management us Juan Jimenez MD ANESTHESIA ORDERABLES Final Re sult * (ABNORMAL) CBC auto differential (08/07/2025 6:13 AM EST) Pathologist [facility] WBC 6.8 4.8 - 10.8 K/mcL LAB HEMETOLOGY METHOD 08/07/2025 7:22 AM [facility] RBC 3.30(L) 3.80 - 4.80 M/mcL LAB HEMETOLOGY METHOD 08/07/2025 7:22 AM [facility] Hemoglobin 10.0(L) 11.5 - 16.0 g/dL LAB HEMETOLOGY METHOD 08/07/2025 7:22 AM [facility] Hematocrit 31.2(L) 35.0 - 47.0 % LAB HEMETOLOGY METHOD 08/07/2025 7:22 AM [facility] MCV 93.7 79.0 - 98.0 FL LAB HEMETOLOGY METHOD 08/07/2025 7:22 AM [facility] MCH 30.0 27.0 - 32.0 pcg LAB HEMETOLOGY METHOD 08/07/2025 7:22 AM [facility] MCHC 32.1 32.0 - 37.0 g/dL LAB HEMETOLOGY METHOD 08/07/2025 7:22 AM [facility] RDW 15.5(H) 11.0 - 15.0 % LAB HEMETOLOGY METHOD 08/07/2025 7:22 AM [facility] Platelets 171 130 - 400 K/mcL LAB HEMETOLOGY METHOD 08/07/2025 7:22 AM [facility] MPV 10.7 7.0 - 11.0 FL LAB HEMETOLOGY METHOD 08/07/2025 7:22 AM [facility] NRBC 0.0 <1.0 % LAB HEMETOLOGY METHOD 08/07/2025 7:22 AM [facility] NRBC Absolute 0.00 <0.10 K/mcL LAB HEMETOLOGY METHOD 08/07/2025 7:22 AM [facility] Neutrophils Relative 61.6 % LAB HEMETOLOGY METHOD 08/07/2025 7:22 AM [facility] Lymphocytes Relative 19.2 % LAB HEMETOLOGY METHOD 08/07/2025 7:22 AM [facility] Monocytes Relative 11.1 % LAB HEMETOLOGY METHOD 08/07/2025 7:22 AM [facility] Eosinophils Relative 7.0 % LAB HEMETOLOGY METHOD 08/07/2025 7:22 AM [facility] Basophils Relative 0.7 % LAB HEMETOLOGY METHOD 08/07/2025 7:22 AM [facility] Immature Granulocytes Relative 0.4 % LAB HEMETOLOGY METHOD 08/07/2025 7:22 AM [facility] Neutrophils Absolute 4.19 1.50 - 7.00 K/mcL LAB HEMETOLOGY METHOD 08/07/2025 7:22 AM [facility] Lymphocytes Absolute 1.31 1.00 - 5.00 K/mcL LAB HEMETOLOGY METHOD 08/07/2025 7:22 AM [facility] Monocytes Absolute 0.76 0.20 - 1.00 K/mcL LAB HEMETOLOGY METHOD 08/07/2025 7:22 AM [facility] Eosinophils Absolute 0.48 0.00 - 0.50 K/mcL LAB HEMETOLOGY METHOD 08/07/2025 7:22 AM [facility] Basophils Absolute 0.05 0.00 - 0.20 K/[facility] HEMETOLOGY METHOD 08/07/2025 7:22 AM [facility] Immature Granulocytes Absolute 0.03 0.00 - 0.03 K/[facility] HEMETOLOGY METHOD 08/07/2025 7:22 AM [facility] Blood Venous blood specimen / Unknown Venipuncture / Unknown 08/07/2025 6:13 AM EST 08/07/2025 7:16 AM EST us Freddie Campoverde MD LAB BLOOD ORDERABLES Final Result [facility] [address] [place] [address], * (ABNORMAL) Basic metabolic panel (08/07/2025 6:13 AM EST) Sodium 138 133 - 145 mmol/L LAB CHEMISTRY METHOD 08/07/2025 8:02 AM [facility] Potassium 4.7 3.5 - 5.5 mmol/L LAB CHEMISTRY METHOD 08/07/2025 8:02 AM [facility] Comment:Hemolysis present Chloride 103 96 - 110 mmol/L LAB CHEMISTRY METHOD 08/07/2025 8:02 AM [facility] CO2 30 21 - 32 mmol/L LAB CHEMISTRY METHOD 08/07/2025 8:02 AM [facility] Anion Gap 5 3 - 11 LAB CHEMISTRY METHOD 08/07/2025 8:02 AM [facility] Glucose 155(H) 70 - 100 mg/dL LAB CHEMISTRY METHOD 08/07/2025 8:02 AM [facility] BUN 35(H) 5 - 25 mg/dL LAB CHEMISTRY METHOD 08/07/2025 8:02 AM [facility] Creatinine 3.91(H) 0.50 - 1.10 mg/dL LAB CHEMISTRY METHOD 08/07/2025 8:02 AM EST [facility] eGFR 13(L) >=60 mL/min/1. 73m2 LAB CHEMISTRY METHOD 08/07/2025 8:02 AM EST [facility] Comment:Calculation based on the Chronic Kidney Disease Epidemiology Collaboration (CKD-EPI) equation refit without adjustment for race. BUN/Creatinine Ratio 9.0 LAB CHEMISTRY METHOD 08/07/2025 8:02 AM EST [facility] Calcium 8.9 8.5 - 10.5 mg/dL LAB CHEMISTRY METHOD 08/07/2025 8:02 AM EST [facility] Blood Venous blood specimen / Unknown Venipuncture / Unknown 08/07/2025 6:13 AM EST 08/07/2025 7:16 AM EST us Freddie Campoverde MD LAB BLOOD ORDERABLES Final Result [facility] [address] [place] [address], * PET CT Skull to Mid Thigh [...] Signed Date: 06/20/2025 15:16 ET Workstation ID: [id number] Transcribed By: Self Edit Transcribed Date: 06/20/2025 [...] Signed Date: 06/20/2025 15:16 ET Workstation ID: [id number] Transcribed By: Self Edit Transcribed Date: 06/20/2025 15:08 ET Calista Alcantara MD IMG NM PROCEDURES Final Result from Last 3 Months Additional Health Concerns Active Problems Noted Date Diagnosed Date Autogenerated Problem 08/08/2025 Insurance MEDICAID - [place] Advance Directives * Full Code - Default (Latest Code Status on File) Date Activated Date Inactivated Comments 08/07/2025 6:09 AM 08/07/2025 2:40 PM This is or priscila is used when code status has not been discussed with the patient, or code status is otherwise unknown/unconfirmed To update the patient's code status, place a code status order. Do not modify or discontinue any currently active code status orders. Care Teams Hospital Aide Relationship Specialty Start Date End Date Catherine Jon MD [address] [place] [address] PCP - General Family Medicine 06/07/25
--- OUTSIDE RECORDS SUMMARY | 2025-08-17 13:18 | XMS_ITS | Encounter Summary ---
Author Organization [employer] Address [address] [facility] [address] [place] [address] Care Team Providers Care Program Management Specialist Name Role Phone Catherine Jon MD Primary Care Provider [phone] Kyle Velez RN Unavailable [phone] Isha Do Unavailable Reason for Visit * Reason Onset Date Comments Hospital Follow-up 04/11/2024 Encounter Details Date Type Department Care Team (Late st Contact Info) Description 04/11/2024 Telephone [facility] MEDICINE [address] [place], [place] [phone] Anne Talamantes DO [address] [place], [place] [phone] Hospital Follow-up Social History Tobacco Use Types [...] from pt requesting a HDF appt. Hospital: [facility] Date of admission: 04/07 Discharge date: 04/11 Diagnosed: Kidney Failure documented in this encounter Plan of Treatment Not on file documented as of this encounter Visit Diagnoses Not on filedocumented in this encounter Care Teams Program Management Specialist Relationship Specialty Start Date End Date Catherine Jon MD [address] [place] [address] PCP - General Family Medicine 09/21/24 Kyle Velez, RN [address] [place] [address] Registered Nurse Family Medicine 06/15/25 08/10/25 Isha Do 06/15/25 08/10/25 [facility] 07/26/24 Blaire Alcantara MD [facility] Oncology Center [address] [place] [address] [address] [place] [address] Medical Oncologist Hematology and Oncology 09/21/24 Jung Maxwell MD [facility] Urology Center [address] [place] [address] [address] Consulting Physician Urology 09/21/24 Bryant Ferro DO Consulting Physician Cardiology 09/21/24 [facility] [address] [place] [address] Consulting Physician Nephrology 09/21/24 Denilson Fay MD, PhD [facility] [address] [place], [place] [phone] Consulting Physician Ophthalmology 09/21/24 [employer] [facility] [address] [place], [place] [phone] Personal Care Services 09/21/24 documented as of this encounter
[2025-08-17 14:16] LABS: Appearance Urine Cloudy; Glucose Urine UA 100 mg/dL (Negative); PH 7.0 (5.0-9.0); Specific Gravity - Urine 1.015 (1.005-1.025); UMIC TRIGGER UACC YES
[2025-08-17 14:23] LABS: UACC Culture Trigger YES
== END 2025-08-17 12:57 | disposition home or self-care (01) ==
LOC: HO.CHCLDS 12:56
PROVIDERS: PCP Family Medicine; Visit Provider Family Medicine
DX: R31.0 Gross hematuria (principal)
CPT/HCPCS: 81001; 87086

== ENCOUNTER 2025-08-17 14:01 | Emergency (ER) | payer MEDICAID, SELFPAY ==
[2025-08-17 14:23] VITALS: BP 136/63; PULSE 77; RESP 18; TEMP 36.3; O2SAT 98; BMI 25.5
--- NOTE | 2025-08-17 14:28 | ED.FEMALEGU ---
HPI - Female Genitourinary General Chief complaint: Urogenital-Female Stated complaint: Urinary Symptoms Time Seen by Provider: 08/17/25 15:45 Source: patient Mode of arrival: ambulatory Limitations: no limitations History of Present Illness ED Provider: SAUNDRA Shaikh HPI Narrative: Chief Complaint: ?I have had blood in my urine for the last five days.? History of Present Illness: 59-year-old female with a history of insulin-dependent diabetes mellitus, end-stage renal disease (on hemodialysis M/W/F), bladder cancer, diabetic nephropathy, secondary hyperparathyroidism, and cardiomyopathy presents with five days of painless hematuria. She reports progressive blood in the urine over this period. Burning with urination occurs intermittently but is not new for her and she relates it to her history of bladder cancer. She missed her scheduled dialysis session today at 4 PM because of the hematuria. She denies abdominal pain, flank pain, fever, chills, chest pain, shortness of breath, nausea, vomiting, headache, vision changes, and dizziness. Related Data Home Medications ?Medication ?Instructions ?Recorded ?Confirmed amitriptyline 50 mg tablet 50 mg PO BEDTIME 10/22/23 11/03/24 cholecalciferol (vitamin D3) 50 50 mcg PO DAILY 10/22/23 11/03/24 mcg (2,000 unit) capsule (Vitamin D3) lancets 33 gauge (TRUEplus Lancets) #100 ea 10/22/23 11/03/24 omeprazole 20 mg capsule,delayed 20 mg PO BID@0630,1630 10/22/23 11/03/24 release pen needle, diabetic 32 gauge x #1,200 ea 10/22/23 11/03/2432 (Pentips Pen Needle) rosuvastatin 40 mg tablet 40 mg PO BEDTIME 10/22/23 11/03/24 ferrous sulfate 325 mg (65 mg 325 mg PO BEDTIME 04/08/24 11/03/24 iron) tablet (FeroSul) metoprolol tartrate 50 mg tablet 50 mg PO BID 04/08/24 11/03/24 cinacalcet 30 mg tablet 30 mg PO MOWEFR 08/01/24 11/03/24 insulin lispro 100 unit/mL 8 - 18 unit subcut TIDAC 08/01/24 11/03/24 subcutaneous pen dapagliflozin propanediol 10 mg 10 mg PO QAM 10/19/24 11/03/24 tablet (Farxiga) sevelamer carbonate 800 mg tablet 800 mg PO TID 10/19/24 11/03/24 Previous Rx's ?Medication ?Instructions ?Recorded apixaban 2.5 mg tablet (Eliquis) 2.5 mg PO BID #60 tabs 08/02/24 oxybutynin chloride 5 mg tablet 5 mg PO Q8H bladder spasms #20 tabs 08/22/24 FreeStyle Gary 3 Plus Sensor #6 ea 10/19/24 (blood-glucose sensor) FreeStyle Gary 3 Edelstein #1 ea 10/19/24 (blood-glucose,business systems consultant,cont) benzonatate 100 mg capsule 100 mg PO BID #28 caps 02/07/25 insulin glargine 100 unit/mL (3 32 unit (0.32 mL) subcut BEDTIME 02/07/25 mL) subcutaneous pen (Lantus 90 days #30 mL Solostar U-100 Insulin) prednisone 10 mg tablet 20 mg (2 x 10 mg) PO DAILY #10 tabs 03/13/25 tramadol 50 mg tablet 50 mg PO BID PRN Pain (Scale Score 04/17/25 7-10) #30 tabs doxycycline hyclate 100 mg tablet 100 mg PO BID 7 days #14 tabs 05/22/25 sennosides 8.6 mg-docusate sodium 1 tab-cap PO BEDTIME #30 tabs 05/29/25 50 mg tablet (Senna with Docusate Sodium) FreeStyle Test (blood sugar #400 ea 06/21/25 diagnostic) aspirin 81 mg tablet,delayed 81 mg PO QAM #90 tabs 06/21/25 release clotrimazole-betamethasone 1 1 appl topical BID rash feet #45 06/21/25 %-0.05 % topical cream grams gabapentin 300 mg capsule 300 mg PO TID #270 caps 06/21/25 hydralazine 10 mg tablet 10 mg PO BID #180 tabs 07/26/25 cefpodoxime 200 mg tablet 200 mg PO Q12H 7 days #14 tabs 08/17/25 Allergies Allergy/AdvReac Type Severity Reaction Status Date / Time No Known Allergies (No Known Allergy Verified 08/17/25 14:24 Allergies*) Review of Systems Review of Systems: Yes all other systems are reviewed and are negative [facility] Past Medical History Attestation statement: The following information was validated with the patient. Source: old records reviewed and nursing notes reviewed Medical History ESRD (end stage renal disease) on dialysis Mass of bladder Bladder mass Pacemaker History of adenomatous polyp of colon Cardiomyopathy Chronic kidney disease, stage 4 (severe) Hypertension Type 2 diabetes mellitus with diabetic nephropathy Surgical History History of insertion of tunneled central venous catheter (CVC) with port History of bladder surgery History of ankle surgery History of biopsy Family History Family History Father No problems noted. Mother No problems noted. Social History Social History Household Members: Children Housing: House Are you a primary gericare aide to a significant other at home: No Do you presently have visiting nurse or other home services: No Alcohol intake: never Patient Tobacco Use Status: Never used Tobacco Smoked in Last 30 Days: No Use of substances other than those prescribed or required for medical reasons: No Advance Directives: Yes Advance Directives Information Provided: Yes Advance Directives on File: No service: No Current occupational status: disabled Gender identity: Female Physical Exam Exam: Exam: Appearance: Alert.? Oriented X3.? No acute distress.? Head: Normocephalic, atraumatic, no step-offs or deformities Eyes: Pupils equal, round and reactive to light.? Neck: Normal inspection.? Neck supple.? CVS: Normal heart rate and rhythm.? Pulses normal.? Respiratory: No respiratory distress.? Breath sounds normal.? Abdomen: Soft and nontender.? Skin: Skin warm and dry.? Normal skin color.? Normal skin turgor.? Extremities: No lower extremity edema.? No calf ttp. 5/5 strength to bilateral upper and lower extremities Back: No midline tenderness, no C-spine tenderness, full range of motion, no CVA tenderness bilaterally Neuro: Oriented X 3.? No motor deficit.? No sensory deficit. CN 2-12 intact Vital Signs: Vital Signs: Last Vital Signs Temp 98.5 F 08/17/25 19:43 Pulse 75 08/17/25 19:43 Resp 18 08/17/25 19:43 BP 135/69 08/17/25 19:43 Pulse Ox 98 08/17/25 19:43 O2 Del Method Room Air 08/17/25 19:43 BMI result Body Mass Index 25.5 vss Course Course Course Narrative: RME: 59 yold female presents with pmh of ESRD and bladder cancer presents to the ED for hematuria for the past 5 days. Patient missed her dialysis today. labs ordered Reevaluation(s) Reevaluation #1: CBC without leukocytosis there is a normocytic anemia noted. Appears to be around baseline. Patient noted to have acute on chronic kidney injury she did miss dialysis. Her nephrology Dr. Christianson if patient is admitted for any reason he can dialyze her tomorrow however if she is stable she can wait until Wednesday. There is no acute electrolyte abnormalities and potassium is normal. Pending UA Time: 16:05 Reevaluation #2: [id number]-- KB Signed out to me from previous provider. pending UA for discharge to home. if UA negative, plan for dialysis on wednesday. If +, PO abx and dialysis wednesday. UA pending. 1914-- patient able to provide urinalysis, large blood, moderate leukocytes. We will treat the patient for an infection prophylactically with cefpodoxime and have her follow up with her metal roofing mechanic on Wednesday and get dialysis done. Provided return precautions to the ED. Patient agreeable and expressed understanding. Medical Decision Making Medical Decision Making [facility] Narrative: 1558 59-year-old female with multiple comorbidities presents with five days of painless hematuria and missed dialysis session today. Problem #1: Gross hematuria / Possible Urinary Tract Infection (UTI) Assessment: Five-day history of painless gross hematuria, progressive, with intermittent dysuria. No flank or abdominal pain, no systemic symptoms (fever, chills). In a patient with end-stage renal disease (ESRD) on hemodialysis, diabetes, and history of bladder cancer, painless hematuria and dysuria may be due to UTI, malignancy, or other urologic pathology. The absence of costovertebral angle (CVA) tenderness and systemic symptoms (fever, chills) makes pyelonephritis unlikely; in ESRD patients, CVA tenderness remains a reliable sign, and pyelonephritis typically presents with fever, flank pain, and systemic illness, which are not present here Plan: Obtain urinalysis and urine culture to evaluate for UTI, as well as basic laboratory studies (CBC, renal function, blood cultures if febrile) to assess for infection and rule out other causes of hematuria. In patients with ESRD and diabetes, antibiotic selection should consider renal dosing and avoid nephrotoxic agents; empiric therapy should be guided by local resistance patterns and prior culture history, with close monitoring for adverse effects Problem #2: End-stage renal disease on hemodialysis ? missed session Assessment: Missed scheduled hemodialysis today due to hematuria. Plan: Differential Diagnosis Differential Diagnoses: The differential diagnosis associated with the presentation includes Recurrent or persistent bladder cancer: History of bladder cancer and painless hematuria are highly suggestive; malignancy is a leading cause of painless gross hematuria in older adults. Urinary tract infection (UTI): Intermittent dysuria and immunocompromised state (diabetes, ESRD) increase risk; UTI can present with hematuria, especially in patients with underlying urologic pathology. Urolithiasis: Can cause hematuria, though typically associated with pain; less likely in absence of flank or abdominal pain, but should be considered. Anticoagulation-related bleeding: If patient is on anticoagulants, increased risk of hematuria due to bleeding; medication history should be clarified. Glomerulonephritis: ESRD patients may have underlying glomerular disease; new findings (e.g., proteinuria, RBC casts) would support this etiology. Radiation or chemotherapy cystitis: If history of pelvic radiation or chemotherapy, may cause hematuria; Other urologic malignancy (upper tract, urethra): Hematuria may originate from upper urinary tract or urethra; risk increased in patients with prior bladder cancer. Vascular malformations or AV fistula: Rare, but possible in ESRD patients; may present with hematuria. Menstrual or gynecologic source: Less likely at age 59, but should be considered if history suggests; Admission/Observation Consideration of admission/observation: Escalation of care including admission/observation considered Consult Healthcare Provider Management of the patient was discussed with: Sales Porter (Nephrology) Lab Data MDM Lab Attestation statement: I reviewed the patient's lab results. 08/17/25 15:17 08/17/25 15:17 Labs: Lab Results 08/17/25 08/17/25 Range/Units 15:17 18:44 WBC 7.5 (4.8-10.8) X10*3/uL RBC 3.12 L (4.20-5.50) X10*6/uL Hgb 9.7 L (12.0-16.0) g/dl Hct 30.3 L (37.0-47.0) % MCV 97.1 (80.0-98.0) fL MCH 31.1 (27.0-33.0) pg MCHC 32.0 (31.0-35.0) g/dl RDW 15.4 (11.0-16.0) % Plt Count 194 (160-400) X10*3/uL MPV 9.7 (9.4-12.3) fL Immature Gran % (Auto) 0.4 (0.0-0.4) % Neut % (Auto) 71.2 (45-73) % Lymph % (Auto) 18.0 L (20-40) % [place] % (Auto) 7.0 (2-11) % Eos % (Auto) 2.7 (0-4) % Baso % (Auto) 0.7 (0-2) % Lymph # (Auto) 1.4 (1.2-4.9) X10*3/uL [place] # (Auto) 0.5 (0.1-1.2) X10*3/uL Eos # (Auto) 0.2 (0.0-0.4) X10*3/uL Baso # (Auto) 0.1 (0.0-0.2) X10*3/uL Abs Immat Gran (auto) 0.03 (0.00-0.03) X10*3/uL Absolute Neuts (auto) 5.4 (2.0-8.3) x10*3/uL Absolute Nucleated RBC 0.000 (0.0-0.012) X10*3/uL Nucleated RBC % (auto) 0.0 (0.0-0.2) /100WBC PT 13.4 (11.2-13.5) SEC INR 1.1 (0.9-1.1) APTT 30.2 (26.7-34.1) SEC Sodium 138 (135-145) mmol/L Potassium 4.0 (3.3-5.1) mmol/L Chloride 101 (96-108) mmol/L Carbon Dioxide 27 (22-29) mmol/L Anion Gap 14 (12-20) BUN 47 H (9-16) mg/dL Creatinine 5.62 H* (0.5-1.4) mg/dL Estim Creat Clear Calc 8.8 Estimated GFR 8 Random Glucose 213 H (60-115) mg/dL Calcium 8.5 (8.4-10.2) mg/dL Total Bilirubin 0.2 (0.0-1.0) mg/dL AST 25 (5-31) U/L ALT 7 (0-31) U/L Alkaline Phosphatase 97 (39-117) U/L Total Protein 6.5 (6.5-8.0) g/dL Albumin 3.4 L (3.5-5.0) g/dL Urine Color Yellow Urine Appearance Cloudy Urine pH 6.5 (5.0-9.0) Ur Specific [place] 1.015 (1.005-1.025) Urine Protein 300 (3+) H (Neg-Trace) mg/dL Urine Glucose (UA) 250 H (Negative) mg/dL Urine Ketones Negative (Negative) mg/dL Urine Blood Large (3+) H (Negative) Urine Nitrite Negative (Negative) Ur Leukocyte Esterase Moderate (2+) H (Negative) Urine RBC >20 H (0-2) /HPF Urine WBC 21-50 H (0-5) /HPF Ur Squamous Epith Cells 11-20 (0-2) /HPF Urine Bacteria 3+ (None Seen) Hyaline Casts 0-2 (0-2) /LPF External Record Review External record reviewed: Inpatient record, Office record, Outpatient record, Prior outpatient labs, Prior outpatient radiology, Primary care record and Outside ED record Tests considered The following testing was considered but not selected: No abdominal tenderness on exam or flank pain no indication for CT scan. Chronic Conditions Patient?s care impacted by: Other (See HPI) Critical Care Time Critical Care Time Critical Care Time: Yes Total Critical Care Time: 35 Attestation: Insert critical care to Discharge Plan Discharge Clinical Impression: Hematuria, UTI (urinary tract infection) Patient Disposition: Home, Self-Care Instructions: Hematuria (ED), Urinary Tract Infection in Older Adults (ED) Additional Instructions: As we discussed, the urine sample here shows blood, as well as concern for an active infection. To treat this, I have prescribed you a course of cefpodoxime. Please take the full course of the antibiotics as prescribed. If we contacted via phone that your urine culture was negative, you can stop taking the antibiotic. Please follow up with Nephrology on Wednesday and have your dialysis session done. If in the meantime you develop any chest pain, shortness of breath or any other worsening complaints, please proceed back to the ED for assessment. Prescriptions: New cefpodoxime 200 mg tablet 200 mg PO Q12H 7 Days Qty: 14 0RF Rx Instructions: must administer with a meal/food No Action hydralazine 10 mg tablet 10 mg PO BID Qty: 180 1RF insulin lispro 100 unit/mL insulin pen 8 - 18 unit subcut TIDAC Rx Instructions: INJECT 8-18 UNITS SUBCUTANEOUSLY THREE TIMES DAILY BEFORE MEALS DIRECTED cinacalcet 30 mg tablet 30 mg PO MOWEFR Rx Instructions: TAKE 1 TABLET BY MOUTH 3 TIMES PER WEEK ON WEDNESDAY, WEDNESDAY, AND WEDNESDAY IN THE EVENING Eliquis 2.5 mg Tablet 2.5 mg PO BID Qty: 60 0RF prednisone 10 mg Tablet 20 mg PO DAILY Qty: 10 0RF tramadol 50 mg Tablet 50 mg PO BID PRN (Reason: Pain (Scale Score 7-10)) Qty: 30 0RF doxycycline hyclate 100 mg Tablet 100 mg PO BID 7 Days Qty: 14 0RF sennosides-docusate sodium [Senna with Docusate Sodium] 8.6-50 mg Tablet 1 tab-cap PO BEDTIME Qty: 30 2RF ferrous sulfate [FeroSul] 325 mg (65 mg iron) tablet 325 mg PO BEDTIME metoprolol tartrate 50 mg tablet 50 mg PO BID (DME) lancets [TRUEplus Lancets] 33 gauge misc See Rx Instructions .ROUTE .MEDSUPPLY Qty: 100 Rx Instructions: As directed (DME) pen needle, diabetic [Pentips Pen Needle] 32 gauge x 5/32 needle See Rx Instructions .ROUTE DIRECTED Qty: 1200 Rx Instructions: As directed omeprazole 20 mg capsule,delayed release(DR/EC) 20 mg PO BID@0630,1630 amitriptyline 50 mg tablet 50 mg PO BEDTIME cholecalciferol (vitamin D3) [Vitamin D3] 50 mcg (2,000 unit) capsule 50 mcg PO DAILY rosuvastatin 40 mg tablet 40 mg PO BEDTIME oxybutynin chloride 5 mg tablet 5 mg PO Q8H Qty: 20 0RF Rx Instructions: Take one for bladder spasm insulin glargine [Lantus Solostar U-100 Insulin] 100 unit/mL (3 mL) insulin pen 32 unit subcut BEDTIME 90 Days Qty: 30 3RF benzonatate 100 mg capsule 100 mg PO BID Qty: 28 0RF sevelamer carbonate 800 mg tablet 800 mg PO TID dapagliflozin propanediol [Farxiga] 10 mg tablet 10 mg PO QAM (DME) FreeStyle Gary 3 Plus Sensor Device See Rx Instructions .Route Qty: 6 3RF Rx Instructions: As directed (DME) FreeStyle Gary 3 Edelstein Misc See Rx Instructions .Route Qty: 1 0RF Rx Instructions: As directed aspirin 81 mg tablet,delayed release (DR/EC) 81 mg PO QAM Qty: 90 3RF (DME) FreeStyle Test Strip See Rx Instructions .Route Qty: 400 3RF Rx Instructions: four times daily gabapentin 300 mg capsule 300 mg PO TID Qty: 270 3RF clotrimazole-betamethasone 1-0.05 % cream 1 appl topical BID Qty: 45 1RF Rx Instructions: Apply topically to feet up to two times daily Referrals: Catherine Jon MD [Primary Care Provider, Medical] Interventions: ED Discharge Assessment Last Done: 08/17/25 19:43 Discharge Date/Time: 08/17/25 19:43 Print Language: Cuban
[2025-08-17 15:21] LABS: MANUAL DIFF FLAG NO
[2025-08-17 15:24] LABS: Hematocrit 30.3 % (37.0-47.0); Hemoglobin 9.7 g/dl (12.0-16.0); Imm Gran Abs Auto 0.03 X10*3/uL (0.00-0.03); Imm Gran Pct Auto 0.4 % (0.0-0.4); Lymphocytes Absolute Auto 1.4 X10*3/uL (1.2-4.9); Mean Corpuscular HGB Conc 32.0 g/dl (31.0-35.0); Mean Corpuscular Hemoglobin 31.1 pg (27.0-33.0); Mean Corpuscular Volume 97.1 fL (80.0-98.0); NRBC Abs Auto 0.000 X10*3/uL (0.0-0.012); NRBC Pct Auto 0.0 /100WBC (0.0-0.2); Platelet Count 194 X10*3/uL (160-400); Red Blood Count 3.12 X10*6/uL (4.20-5.50); White Blood Count 7.5 X10*3/uL (4.8-10.8)
[2025-08-17 15:34] LABS: INTERNATIONAL NORM RATIO 1.1 (0.9-1.1); Prothrombin Time 13.4 SEC (11.2-13.5)
[2025-08-17 15:37] LABS: Partial Thromboplastin Time 30.2 SEC (26.7-34.1)
[2025-08-17 15:47] LABS: Alanine Aminotransferase 7 U/L (0-31); Albumin Level 3.4 g/dL (3.5-5.0); Alkaline Phosphatase 97 U/L (39-117); Anion Gap 14 (12-20); Aspartate Amino Transferase 25 U/L (5-31); Blood Urea Nitrogen 47 mg/dL (9-16); Calcium 8.5 mg/dL (8.4-10.2); Carbon Dioxide 27 mmol/L (22-29); Chloride 101 mmol/L (96-108); Creatinine Clr Calc Pharmacy 8.8; Estimated Glomerular Filt Rate 8; Potassium 4.0 mmol/L (3.3-5.1); Sodium 138 mmol/L (135-145); Total Protein 6.5 g/dL (6.5-8.0)
[2025-08-17 17:00] VITALS: BP 137/56; PULSE 75; RESP 16; TEMP 36.9; O2SAT 98
--- NOTE | 2025-08-17 18:19 | PC.NURSE ---
pt state she only makes urine every other day. she says she can not urinate now for sample. bladder scan 93ml
[2025-08-17 18:54] LABS: Appearance Urine Cloudy; Glucose Urine UA 250 mg/dL (Negative); PH 6.5 (5.0-9.0); Specific Gravity - Urine 1.015 (1.005-1.025); UMIC TRIGGER UACC YES
[2025-08-17 19:04] LABS: UACC Culture Trigger YES
[2025-08-17 19:42] VITALS: BP 135/69; PULSE 75; RESP 18; TEMP 36.9; O2SAT 98
[2025-08-17 19:43] VITALS: BP 135/69; PULSE 75; RESP 18; TEMP 36.9; O2SAT 98
== END 2025-08-17 19:43 | disposition home or self-care (01) ==
PROVIDERS: Physician Assistant; Emergency Provider Emergency Medicine; PCP Family Medicine
DX: N39.0 Urinary tract infection, site not specified (principal); R31.9 Hematuria, unspecified; Z79.4 Long term (current) use of insulin; E11.9 Type 2 diabetes mellitus without complications; Z79.899 Other long term (current) drug therapy
CPT/HCPCS: 36415; 80053; 81001; 85025; 85610; 85730; 87086; 99284

== ENCOUNTER 2025-08-21 12:51 | Outpatient (REF) | payer MEDICAID, SELFPAY ==
--- OUTSIDE RECORDS SUMMARY | 2024-03-16 06:15 | XMS_ITS ---
Author Organization Estuardo Kenyon III, MD Address [address] [place] [address] [place] [address] Care Team Providers Care Nuclear Medicine Physician Name Role Phone YENI SALGUERO Primary Care Provider [phone] Dr. Estuardo Kenyon III Unavailable [phone] Allergies Allergen (clinical drug ingredient) Drug/Non Drug Allergy documented on EMR Reaction Allergy Type Onset Date Status No Known Drug Allergy Unknown Drug Allergy Active Reason For Referral Reason urothelial cancer ev aluate and treat Diagnosis 1 Malignant neoplasm o f urinary bladder, unspecified site (C67.9) Referral Organization Estuardo Kenyon III, MD Referring Provider First Name Estuardo Referring Provider Last Name Chantale Referring Provider Speciality Internal M edicine Referred Provider HI ZHOU Referred Provider Specialty Oncology General Notes Esther Hernandez VACUUM METALIZER OPERATOR 02/26 02:14:17 PM EDT > pt dtr Olga called given appt information and ref/progress notes and all testing faxed to Dr Zhou at [phone] Referral Priority Routine Referral Appointment Date 03/17/2024 REASON FOR VISIT Urothelial carcinoma, End-stage renal disease, Dialysis patient, Diabetes, Cardiomyopathy Medications Medication SIG (Take, Route, Frequency, Duration) Notes Start Date End Date Status Farxiga 10 MG TAKE 1 TABLET BY ISIDRA TH EVERY MORNING Oral Active FeroSul 325 (65 Fe) MG TAKE 1 TABLET BY MOUTH EVERY EVENING Oral Active traMADol HCl 50 MG 1 tablet as needed Orally every six hours as needed for pain for 10 days 03/16/2024 05/15/2024 Active Amitriptyline HCl 50 MG TAKE 1 TABLET BY MOUTH AT BEDTIME Oral Active Aspirin Low Dose 81 MG TAKE 1 TABLET BY MOUTH EVERY MORNING Oral Active Vitamin D3 50 MCG (2000 UT) 1 capsule Or ally Once a day Active Rosuvastatin Calcium 40 MG 1 tablet Oral ly Once a day Active Omeprazole 20 MG 1 capsule 30 minutes before morning meal Orally Once a day Active Metoprolol Tartrate 25 MG 1 tablet with food Orally Twice a day Active Social History Tobacco Use: Social History Observation Description Date Details (start date - stop date) Never Smoker NA - NA Tobacco Use/Smoking Question Answer Notes Patient is a nonsmoker Additional Findings: Tobacco Non-User Aggressive non-smoker Alcohol Screen Question Answer Notes Did you have a drink containing alcohol in the p ast year? No Points 0 Interpretation Negative Problems Problem Type SNOMED Code ICD Code Onset Dates Problem Status W/U Status Risk Notes Problem 78341339 Cardiomyopathy, unspecified type (I42.9) Active confirmed Problem 89447751 Chronic renal failure, stage 4 (severe) (N18.4) Active confirmed We have mad e the political analyst aware of the situation. The fistula in the left upper lung appears to be maturing well. The dialysis catheter and right upper chest wall is intact and seems to function normally. Problem 63406406 Hypertension, unspecified type (I10) Active confirmed Problem 310527442061314039 Progressive macular hypomelanosis (L81.6) Active confirmed Problem 238313357 AVF (arteriovenous fistula) (I77.0) Active confirmed Problem 18648700 End-stage renal disease (N18.6) Active confirmed Problem 332751307 Pacemaker (Z95.0) Active confirmed Problem 112141621 History of adenomatous polyp of colon (Z86.010) Active confirmed Problem 855152825 Type 2 diabetes mellitus with diabetic chronic kidney disease (E11.22) Active confirmed Problem 265587963 Chronic kidney disease, stage 5 (N18.5) Active confirmed Problem 044751643 care home (current) use of insulin (Z79.4) Active confirmed Problem 550466078 Anemia in chronic kidney disease (D63.1) Active confirmed Her blood pressure is currently 139/69 and no change in her regimen as needed. Problem 31045145 Type 2 diabetes mellitus with diabetic nephropathy, unspecified whether shelter insulin use (E11.21) Active confirmed Diabetes currently seems well controlled. Problem 12924806 Secondary hyperparathyroid ism of renal origin (N25.81) Active confirmed She is in end-stage renal disease. Problem 255540615 Malignant neoplasm of urinary bladder, unspecified site (C67.9) Active confirmed The tumor appears to be widespread. We will need to review the images with the radiologist to clarify the nature of the mass in or I can tellnear the right kidney. Vital Signs Temperature 98.1 degrees Fahrenheit 03/16/20 24 Blood pressure systolic 139 mm Hg 03/16/20 24 Blood pressure diastolic 69 mm Hg 024 Heart Rate 91 /min 03/16/2024 Height 5' 1 in 03/16/2024 Weight 160 lbs 03/16/2024 BMI 30.23 kg/m2 03/16/2024 Encounters Encounter Location Date Provider Diagnosis Estuardo Kenyon III, MD [address] [place] [address] [place] [address] 03/16/2024 Estuardo Kenyon Chronic renal failur e, stage 4 (severe) N18.4 ; Malignant neoplasm of urinary bladder, unspecified site C67.9 ; Type 2 diabetes mellitus with diabetic nephropathy, unspecified whether political research scientist insulin use E11.21 ; Secondary hyperparathyroidism of renal origin N25.81 ; Anemia in chronic kidney disease D63.1 ; Progressive macular hypomelanosis L81.6 ; AVF (arteriovenous fistula) I77.0 ; Pacemaker Z95.0 ; End-stage renal disease N18.6 and Hypertension, unspecified type I10 Assessments Encounter Date Diagnosis (ICD Code) Assessment Notes T reatment Notes Treatment Clinical Notes 03/16/2024 Chronic renal failur e, stage 4 (severe) (ICD-10 - N18.4) We have made the political analyst aware of the situation. The fistula in the left upper lung appears to be maturing well. The dialysis catheter and right upper chest wall is intact and seems to function normally. 03/16/2024 Malignant neoplasm o f urinary bladder, unspecified site (ICD-10 - C67.9) The tumor appears to be widespread. We will need to review the images with the radiologist to clarify the nature of the mass in or I can tellnear the right kidney. 03/16/2024 Type 2 diabetes apoorva itus with diabetic nephropathy, unspecified whether shelter insulin use (ICD-10 - E11.21) Diabetes currently seems well controlled. 03/16/2024 Secondary hyperparathyroidism of renal origin (ICD-10 - N25.81) She is in end-stage renal disease. 03/16/2024 Anemia in chronic ki dney disease (ICD-10 - D63.1) Her blood pressure is currently 139/69 and no change in her regimen as needed. 03/16/2024 Progressive macular hypomelanosis (ICD-10 - L81.6) 03/16/2024 AVF (arteriovenous fistula) (ICD-10 - I77.0) 03/16/2024 Pacemaker (ICD-10 - Z95.0) 03/16/2024 End-stage renal dise ase (ICD-10 - N18.6) 03/16/2024 Hypertension, unspec ified type (ICD-10 - I10) Plan Of Treatment Medication Medication Name Sig Start Date Stop Date Notes Farxiga 10 MG TAKE 1 TABLET BY ISIDRA TH EVERY MORNING Oral FeroSul 325 (65 Fe) MG TAKE 1 TABLET BY MOUTH EVERY EVENING Oral traMADol HCl 50 MG 1 tablet as needed O rally every six hours as needed for pain for 10 days 03/16/2024 05/15/2024 Amitriptyline HCl 50 MG TAKE 1 TABLET BY MOUTH AT BEDTIME Oral Aspirin Low Dose 81 MG TAKE 1 TABLET BY MOUTH EVERY MORNING Oral Vitamin D3 50 MCG (2000 UT) 1 capsule Orally Once a day Rosuvastatin Calcium 40 MG 1 tablet Orally Once a day Omeprazole 20 MG 1 capsule 30 minutes before morning meal Orally Once a day Metoprolol Tartrate 25 MG 1 tablet with food Orally Twice a day Referrals Referral Date Details 03/16/2024 03/16/2024, urotheli al cancer evaluate and treat , HI ZHOU Next Appt Details Follow Up: prn, Reason: ov Progress Notes * Jazmine RILEYDOB: [birth year] (58 yo F)Acc No.[id number]:03/16/2024 Patient: Maty Reynacelia Provider: Evaristo Kenyon MD :1965 A ge:58 Y S ex:Female Date:03/16/2024 Address:[address] [place] [address] [id number] Pcp:YENI SALGUERO Subjective: * Chief Complaints: * U rothelial carcinomaEnd-stage renal diseaseDialysis patientDiabetesCardiomyopathy * HPI: C OVID-19 Screening: This patient went to the emergency room last weekend pain and weakness. She has a history of end-stage reenal disease and diabetes mellitus. She has a dialysis catheter in the right upper chest wall which has been used recently. An arteriovenous fistula has been created in the upper left arm but has not been used yet as it is still healing. Her political analyst is Dr. Martinez. She receives primary care at the [facility]. A CT scan of the abdomen at the [facility] recently showed a large mass in the bladder and a mass in or adjacent to the right kidney with retroperitoneal adenopathy. A cystoscopy showed urothelial carcinoma. He recently had a TURBT with Dr. Jung Maxwell that showed invasion of the lamina propria. She was medically stable today. She is having some abdominal pain I gave her a prescription for tramadol. I have referred her to medical oncology at [facility] for further staging and definitive treatment. Questions H ave you experienced fever, chills, cough, sore throat, shortness of breath, difficulty breathing, muscle aches, loss of taste or smell? Y es cough stated longer than 48 hrs, Sore Throat H ave you been exposed to the virus within the last 10 days? N o H ave you travelled internationally in the last 10 days? N o H ave you been exposed to COVID-19 in the past? Y es * ROS: G eneral/Constitutional: pain B ilateral lower abdominal pain. C hills d enies. F atigue a dmits. F ever d enies. E NT: Decreased hearing d enies. R espiratory: Cough d enies. C ardiovascular: Chest pain with exertion d enies. D yspnea on exertion?denies. S hortness of breath d enies. G astrointestinal: Constipation d enies. D ecreased appetite d enies.?Diarrhea d enies. H eartburn d enies. N ausea d enies. R ectal bleeding?denies. V omiting d enies. H ematology: bruising d enies. p etechiae d enies. S wollen glands n one have been noted. G enitourinary: Frequent urination a small amount. M usculoskeletal: Muscle aches d enies. P ainful joints d enies. S ciatica d enies. W eakness d enies. S kin: Itching d enies. R huseyin d enies. S kin lesion(s)?denies. N eurologic: Difficulty speaking d enies. D izziness d enies.?Headache d enies. L ow back pain d enies. P sychiatric: Depressed mood w hich is mild. * Medical History: * Surgical History: D enies Past Surgical History * Hospitalization/Major Diagno stic Procedure: D enies Past Hospitalization * Family History: F ather: , Stroke. M other: , Stroke. 4 brother(s) , 5 sister(s) . .? Siblings have HTN and one sister have DM. * Social History: T obacco Use: T obacco Use/Smoking P atient is a n onsmoker A dditional Findings: Tobacco Non-User A ggressive non-smoker D rugs/Alcohol: D rugs H ave you used drugs other than those for medical reasons in the past 12 months? N o Alcohol Screen D id you have a drink containing alcohol in the past year? N o P oints 0 I nterpretation N egative * Medications: T akingVitamin D3 50 MCG (1999) Capsule 1 capsule Orally Once a dayRosuvastatin Calcium 40 MG Tablet 1 tablet Orally Once a dayOmeprazole 20 MG Capsule Delayed Release 1 capsule 30 minutes before morning meal Orally Once a dayMetoprolol Tartrate 25 MG Tablet 1 tablet with food Orally Twice a dayAmitriptyline HCl 50 MG Tablet TAKE 1 TABLET BY MOUTH AT BEDTIME Oral Aspirin Low Dose 81 MG Tablet Delayed Release TAKE 1 TABLET BY MOUTH EVERY MORNING Oral Farxiga 10 MG Tablet TAKE 1 TABLET BY MOUTH EVERY MORNING Oral FeroSul 325 (65 Fe) MG Tablet TAKE 1 TABLET BY MOUTH EVERY EVENING Oral Taking Vitamin D3 50 MCG (1999) Capsule 1 capsule Orally Once a dayTaking Rosuvastatin Calcium 40 MG Tablet 1 tablet Orally Once a dayTaking Omeprazole 20 MG Capsule Delayed Release 1 capsule 30 minutes before morning meal Orally Once a dayTaking Metoprolol Tartrate 25 MG Tablet 1 tablet with food Orally Twice a dayTaking Amitriptyline HCl 50 MG Tablet TAKE 1 TABLET BY MOUTH AT BEDTIME Oral Taking Aspirin Low Dose 81 MG Tablet Delayed Release TAKE 1 TABLET BY MOUTH EVERY MORNING Oral Taking Farxiga 10 MG Tablet TAKE 1 TABLET BY MOUTH EVERY MORNING Oral Taking FeroSul 325 (65 Fe) MG Tablet TAKE 1 TABLET BY MOUTH EVERY EVENING Oral DiscontinuedInsulin Lispro (1 Unit Dial) 100 UNIT/ML Solution Pen-injector INJECT 8-18 UNITS SUBCUTANEOUSLY THREE TIMES DAILY BEFORE MEALS DIRECTED Subcutaneous Medication List reviewed and reconciled with the patientDiscontinued Insulin Lispro (1 Unit Dial) 100 UNIT/ML Solution Pen-injector INJECT 8-18 UNITS SUBCUTANEOUSLY THREE TIMES DAILY BEFORE MEALS DIRECTED Subcutaneous Medication List reviewed and reconciled with the patient * Allergies: N o Known Drug Allergyno[Allergies Verified] Objective: * Vitals: H t: 5' 1 , Wt: 160, BMI:30.23, BP: 139/69, HR: 91, Temp: 98.1, Ht-cm: 154.94, Wt- k.57. * Examination: G eneral Examination: GENERAL APPEARANCE: p leasant, well nourished, well developed, in no acute distress, calm and relaxed , obese , woman. HEAD: a traumatic, normocephalic. EYES: e ángela, perrla, anicteric, conjugate. EARS: n ormal. NOSE: s eptum intact. ORAL CAVITY: n ormal, unremarkable. NECK/THYROID: n o jugular venous distention, no carotid bruit, thyroid normal. LYMPH NODES: n o enlarged lymph nodes,spleen normal. SKIN: n o suspicious lesions, anicteric. HEART: n o clicks, gallops, murmurs, or rubs, regular rhythm, S1, S2 normal, no s3, or vascular bruits. LUNGS: c lear to auscultation . BREASTS: n ot examined. ABDOMEN: b owel sounds normal, no ascites, no organomegaly, no mass , centripital obesity. RECTAL EXAM: n ot examined. MUSCULOSKELETAL: e xtremities unremarkable, no clubbing, cyanosis or edema. PERIPHERAL PULSES: n ormal. NEUROLOGIC: a lert and oriented, cranial nerves 2-12 grossly intact, deep tendon reflexes 2+ symmetrical, motor strength normal upper and lower extremities, sensory exam intact. PSYCH: a lert, oriented. Assessment: * Assessment: 1. C hronic renal failure, stage 4 (severe) - N18.4 (Primary), We have made the political analyst aware of the situation. The fistula in the left upper lung appears to be maturing well. The dialysis catheter and right upper chest wall is intact and seems to function normally. 2 . M alignant neoplasm of urinary bladder, unspecified site - C67.9, The tumor appears to be widespread. We will need to review the images with the radiologist to clarify the nature of the mass in or I can tellnear the right kidney. 3 . T ype 2 diabetes mellitus with diabetic nephropathy, unspecified whether shelter insulin use - E11.21, Diabetes currently seems well controlled. 4 . S econdary hyperparathyroidism of renal origin - N25.81, She is in end-stage renal disease. 5 . A nemia in chronic kidney disease - D63.1, Her blood pressure is currently 139/69 and no change in her regimen as needed. 6 . P rogressive macular hypomelanosis - L81.6 7 . A VF (arteriovenous fistula) - I77.0 8 . P acemaker - Z95.0 9 . E nd-stage renal disease - N18.6 1 0. H ypertension, unspecified type - I10 Plan: * Treatment: 2. M alignant neoplasm of urinary bladder, unspecified site Referral To:HI ZHOU Oncology Reason:urothelial cancer evaluate and treat * Procedure Codes: 9 9496 TRANS CARE MGMT 7 DAY DISCH * Preventive Medicine: Counseling: C are goal follow-up plan: Counseling for abnormal BMI given Y es Above Normal BMI Follow-up D ietary management education, guidance, and counseling, Dietary needs education, Exercise promotion: strength training, Exercise promotion: stretching, Feeding regime, Giving encouragement to exercise, Lifestyle education regarding diet, Nutrition / feeding management, Nutrition therapy, Prescribed activity/exercise education, Prescribed diet education, Prescribed dietary intake, Special diet education, Weight monitoring , Intervention, Order not done: Medical or Other reason not done DM Care Plan: P atient Lifestyle Goals P atient wants to be able to manage diabetes without too much effort. T reatment Goals H bA1C < 7.0, Blood Sugars less than < 115. B arriers n o barriers. S elf-Managment Goals W ork on weight loss, with a goal of losing 1 lb per week, Increase exercise to 3 times a week for 30 mins, Take blood sugars twice daily and keep a log. Bring log in to next appointment. * Follow Up: p rn (Reason: ov) * Images: * Sign off status: Completed true * Provider: Evaristo Kenyon MD Date: 0 03/16/2024 Generated for Printi ng/Fajossueg/eTransmitting on: 1 10/21/2024 04:29 PM EST History and Physical Notes * HPI (History of Present Illness) Category Sub-Category Detail Notes COVID-19 Screening Questions Have you had any new onset fever, chills, cough, congestion, sore throat, shortness of breath, muscle aches?: Yes cough stated longer than 48 hrs, Sore Throat Have you been exposed to the virus withi n the last 10 days?: No Have you travelled internationally in [facility] last 10 days?: No Have you been exposed to COVID-19 in the past?: Yes Examination Category Sub-Category Detail Notes General Examination GENERAL APPEARANCE: pleasant , well nourished, well developed, in no acute distress, calm and relaxed , obese , woman HEAD: atraumatic, normocep halic EYES: eomi, perrla, anicte pat, conjugate EARS: normal NOSE: septum intact NECK/THYROID: no jugular venous di stention, no carotid bruit, thyroid normal HEART: no clicks, gallops, murmurs, or rubs, regular rhythm, S1, S2 normal, no s3, or vascular bruits LUNGS: clear to auscultatio n ABDOMEN: bowel sounds normal, no ascites, no organomegaly, no mass , centripital obesity NEUROLOGIC: alert and oriented, cranial nerves 2-12 grossly intact, deep tendon reflexes 2+ symmetrical, motor strength normal upper and lower extremities, sensory exam intact SKIN: no suspicious lesion s, anicteric PERIPHERAL PULSES: normal BREASTS: not examined MUSCULOSKELETAL: extremities unremark able, no clubbing, cyanosis or edema LYMPH NODES: no enlarged lymph no beto,spleen normal RECTAL EXAM: not examined PSYCH: alert, oriented ORAL CAVITY: normal, unremarkable Consultation Request Notes Referral Date Referring Provider Referred Provider Not wilfrido 03/16/2024 Estuardo Kenyon RENUKA urothelial c ancer evaluate and treat
--- OUTSIDE RECORDS SUMMARY | 2025-08-16 15:30 | XMS_ITS | Encounter Summary ---
Author Organization [employer] Address [address] [facility] 7t [place] [address] Care Team Providers Care Acute Care Nurse Name Role Phone Catherine Jon MD Primary Care Provider [phone] Reason for Referral * Consultation (Routine) - Pending Review Specialty Diagnoses / Procedures Referred By Contranda t Referred To Contact Gastroenterology Diagnoses Colon cancer screening Catherine Jon MD [address] [place] [address] Phone: tel: fax: Referral ID Status Reason Start Date Expiration Date Visits Requested Visits Authorized [id number] Pending Review Specialty Services Required 5 08/16/2026 1 1 Encounter Details Date Type Department Care Team (Late st Contact Info) Description 08/16/2025 3:30 PM EST Office Visit [facility] [address], [place] [phone] Catherine Jon MD [address] [place], [place] [phone] Gross hematuria (Primary Dx); Colon cancer screening; Encounter for health-related screening; Type 2 diabetes mellitus with diabetic nephropathy, with long-term current use of insulin (HCC); Peripheral polyneuropathy; Type 2 diabetes mellitus with diabetic neuropathy, unspecified whether skilled nursing insulin use (HCC); Type 2 diabetes mellitus with hyperglycemia, unspecified whether skilled nursing insulin use (HCC) Social History Tobacco Use [...] insulin (HCC) Expected: 08/16/2025 (Approximate), Expires: 08/16/2026 Scheduled Referrals Name Type Priority Associated Diagnoses Order Schedule Referral to Gastroenterology Outpatient Referral Routine Colon cancer screening Expected: 08/16/2025 (Approximate), Expires: 08/16/2026 documented as of this encounter Goals Goal Patient Goal Type Associated Problems Recent Progress Patient-Stated? Author Help patients manage their type 2 diabetes Care Plan Help patients manage their type 2 diabetes No Isha Do Weekly blood pressure task Care Plan Weekly blood pressure task Isha Paris Help patients manage their type 2 diabetes [...] chronic kidney disease No Peng Ng [place] Weekly blood pressure [...] Jon MD documented as of this encounter Procedures Procedure Name Priority Date/Time Associated Diagnosis Comments URINALYSIS, COMPLETE, WITH REFLEX TO CULTURE Routine 08/17/2025 8:30 AM EST Gross hematuria documented in this encounter Results * (ABNORMAL) Urinalysis, Complete, with Reflex to Culture (08/17/2025 8:30 AM EST) Color Urine Yellow [facility] Appearance Urine Cloudy [facility] PH 7.0 5.0 - 9.0 [facility] Glucose Urine UA 100(A) Negative mg/dL [facility] Urine Blood Large (3+)(A) Negative [facility] Specific Chromo - Urine 1.015 1.005 - 1.025 [facility] Urine Protein 300 (3+)(A) Neg-Trace mg/dL [facility] Urine Ketones Negative Negative mg/dL [facility] Nitrite Urine Negative Negative [facility] Leukocyte Esterase Urine Moderate (2+)(A) Negative [facility] RBC Urine >20(A) 0 - 2 /HPF [facility] Urine WBC 21-50(A) 0 - 5 /HPF [facility] Urine Squamous Epithelial Cell 11-20 0 - 2 /HPF [facility] Urine Bacteria 2+ None Seen [facility] Hyaline Casts, Urine 6-10 0 - 2 /LPF [facility] Urine 08/17/2025 8:30 AM EST 08/17/2025 2:09 PM EST Narrative [facility] - 08/17/2025 2:24 PM EST [id number], Clean Catch us Catherine Jon MD LAB URINE ORDERABLES Final Re sult [facility] [address] [place] [address] [phone] documented in this encounter Visit Diagnoses Diagnosis Gross hematuria- Primary Colon cancer screening Special screening for malignant neoplasms, colon Encounter for health-related screening Type 2 diabetes mellitus with diabetic nephropathy, with long-term current use of insulin (HCC) Peripheral polyneuropathy Type 2 diabetes mellitus with diabetic neuropathy, unspecified whether skilled nursing insulin use (HCC) Type 2 diabetes mellitus with hyperglycemia, unspecified whether business performance manager insulin use (HCC) documented in this encounter [...] documented as of this encounter Care Teams Acute Care Nurse Relationship Specialty Start Date End Date Catherine Jon MD [address] [place] [address] PCP - General Family Medicine [facility] Blaire Alcantara MD [facility] [address] [facility] [address] [place] [address] Medical Oncologist Hematology and Oncology 09/21/24 Jung Maxwell MD [facility] [address] [place] [address] [place] [address] Consulting Physician Urology 09/21/24 Bryant Ferro DO Consulting Physician Cardiology 09/21/24 [facility] [address] [place] [address] Consulting Physician Nephrology 09/21/24 Denilson Fay MD, PhD [facility] [address] [place] [address] Consulting Physician Ophthalmology 09/21/24 [employer], PHONE SCREENER Agency [address] [place] [address] Personal Care Services 09/21/24 documented as of this encounter
--- NOTE | ~2025-08-21 | US_ITS ---
EXAMINATION: US TRIPLEX UPPER EXTREMITY, RIGHT CLINICAL INFORMATION: Swelling after dialysis COMPARISON: Previous right upper extremity ultrasound July 2024 TECHNIQUE: Color-flow triplex imaging with spectral analysis and compression Doppler was performed on the right upper extremity. FINDINGS: There is thrombus seen in the right internal jugular vein. This was seen on prior exam July 2024 and this may be chronic. The right subclavian vein is patent. The right axillary vein is patent. There is a graft/fistula from the brachial artery to the antecubital or basilic vein. The graft is patent. There is a large complex fluid collection with internal echoes adjacent to the graft suggestive of a hematoma. This measures 4.8 x 1.8 x 2.8 cm. The brachial artery is patent proximal to the fistula. There is hypoechoic material in the brachial artery distal to the fistula anastomosis suggestive of thrombus. The cephalic, brachial and basilic veins are patent. US/US venous duplex UE RT IMPRESSION: Thrombus in the right internal jugular vein. This may be chronic. Recent AV fistula/graft from the brachial artery to the antecubital fossa/basilic vein. This is patent. Large surrounding soft tissue hematoma measuring up to 4.8 x 2.8 cm. Thrombus seen in the brachial artery distal to the fistula anastomosis. Findings were communicated to Dr. Alcantara by the hematology technologist at the completion of the exam on 08/21/2025 at 1452 and the patient was instructed to go to the emergency room. Electronically signed by: Marilynn Causey MD 08/21/2025 03:38 PM [facility]
--- OUTSIDE RECORDS SUMMARY | 2025-08-21 16:08 | XMS_ITS | Encounter Summary ---
Author Organization [facility] Address [address] [place] [address] Care Team Providers Care Permaculture Contractor Name Role Phone Catherine Jon MD Primary Care Provider [phone] Encounter Details Date Type Department Care Team (Late st Contact Info) Description 08/21/2025 4:08 PM [facility] Emergency [address] [place] [address] Social History Tobacco Use Types Packs/Day Years Used Date Smoking Tobacco: Never Smokeless Tobacco: Never Alcohol Use Standard Drinks/Week Comments Never 0 [...] documented as of this encounter Care Teams Permaculture Contractor Relationship Specialty Start Date End Date Catherine Jon MD [address] [place] [address] PCP - General Family Medicine 06/07/25 documented as of this encounter
--- OUTSIDE RECORDS SUMMARY | 2025-08-21 16:29 | XMS_ITS | Encounter Summary ---
Author Organization [employer] Address [address] [facility] [address] [place] [id number] Care Team Providers Care Operating Systems Specialist Name Role Phone Catherine Jon MD Primary Care Provider [phone] Kyle Velez RN Unavailable [phone] Isha Do Unavailable Kyle Velez RN Unavailable [phone] Mustapha Fritz Unavailable Encounter Details Date Type Department Care Team (Late st Contact Info) Description 09/24/2022 Orders Only [facility] [address] [place], [place] [phone] Lydia Haq RN Social History Tobacco Use [...] on filedocumented in this encounter Care Teams Operating Systems Specialist Relationship Specialty Start Date End Date Catherine Jon MD [address] [place] [address] PCP - General Family Medicine 09/21/24 Kyle Velez, RN [address] [place] [address] Registered Nurse Family Medicine 06/15/25 08/10/25 Isha Do 06/15/25 08/10/25 Kyle Velez, RN [address] [place] [address] Registered Nurse Family Medicine 08/20/25 Mustapha Fritz [facility]25 [facility]24 Blaire Alcantara MD [facility] [address] [place] [address] [address] [place] [address] Medical Oncologist Hematology and Oncology 09/21/24 Jung Maxwell MD [facility] [address] [place] [address] [place] [address] Consulting Physician Urology 09/21/24 Bryant Ferro DO Consulting Physician Cardiology 09/21/24 [facility] [address] [place] [address] Consulting Physician Nephrology 09/21/24 Denilson Fay MD, PhD [facility] [address] [place], [place] [phone] Consulting Physician Ophthalmology 09/21/24 [employer] [address] [place] [address] Personal Care Services 09/21/24 documented as of this encounter
--- OUTSIDE RECORDS SUMMARY | 2025-08-21 16:29 | XMS_ITS | Encounter Summary ---
Author Organization [employer] Address [address] [facility] 7t [place] [address] Care Team Providers Care Senior Software Analyst Name Role Phone Catherine Jon MD Primary Care Provider [phone] Kyle Velez RN Unavailable [phone] Mustapha Frizt Unavailable Reason for Visit * Reason Onset Date Comments ER Follow-up 08/20/2025 Encounter Details Date Type Department Care Team ([facility] Contact Info) Description 08/20/2025 Telephone [facility] [address] [place], [place] [phone] Catherine Jon MD [address] [place], [place] [phone] ER Follow-up Social History Tobacco Use Types Packs/Day [...] encounter Miscellaneous Notes * Telephone Encounter - Madelin Burch RN - 08/20/2025 11:51 AM EST TC 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 No answer. left instructing pt to return call to office. documented in this encounter Plan of Treatment [...] Weekly blood pressure task No Peng Ng [place] Weekly blood pressure task Care Plan Weekly blood pressure task No Peng Ng [place] Weekly blood pressure task Care Plan Weekly blood pressure task No Peng Ng [place] Patient has diabetic eye disease Care Plan Patient has diabetic eye disease No Peng Ng [place] Patient has diabetic eye disease Care Plan Patient has diabetic eye disease No Peng Ng [place] Patient has diabetic eye disease Care Plan Patient has diabetic eye disease No Peng Ng [place] Patient has chronic kidney disease Care Plan Patient has chronic kidney disease No Peng Ng [place] Patient has chronic kidney disease Care Plan Patient has chronic kidney disease No Peng Ng [place] Patient has chronic kidney disease Care Plan Patient has chronic kidney disease No Peng Ng [place] Weekly blood pressure task Care Plan Weekly [...] Plan Patient has chronic kidney disease No Catheirne Jon MD Patient has chronic kidney disease Care Plan Patient has chronic kidney disease No Catherine Jon MD Patient has chronic kidney disease Care Plan Patient has chronic kidney disease No Catherine Jon MD Weekly blood pressure task Care Plan Weekly blood pressure task No Lanette Bird RN Weekly blood pressure task Care Plan Weekly blood pressure task No Lanette Bird RN Weekly blood pressure task Care Plan Weekly blood pressure task No Lanette Bird RN Patient has diabetic eye disease Care Plan Patient has diabetic eye disease No Lanette Bird RN Patient has diabetic eye disease Care Plan Patient has diabetic eye disease No Lanette Bird RN Patient has diabetic eye disease Care Plan Patient has diabetic eye disease No Lanette Bird RN Patient has chronic kidney disease Care Plan Patient has chronic kidney disease No Lanette Bird RN Patient has chronic kidney disease Care Plan Patient has chronic kidney disease No Lanette Bird RN Patient has chronic kidney disease Care Plan Patient has chronic kidney disease No Lanette Bird RN Weekly blood pressure task Care Plan Weekly blood pressure task No Beronica Burch RN Weekly blood pressure task Care Plan Weekly blood pressure task No Beronica Burch RN Weekly blood pressure task Care Plan Weekly blood pressure task No Beronica Burch RN Patient has diabetic eye disease Care Plan Patient has diabetic eye disease No Beronica Burch RN Patient has diabetic eye disease Care Plan Patient has diabetic eye disease No Beronica Burch RN Patient has diabetic eye disease Care Plan Patient has diabetic eye disease No Beronica Burch RN Patient has chronic kidney disease Care Plan Patient has chronic kidney disease No Beronica Burch RN Patient has chronic kidney disease Care Plan Patient has chronic kidney disease No Beronica Burch RN Patient has chronic kidney disease Care Plan Patient has chronic kidney disease No Beronica Burch RN Weekly blood pressure task Care Plan Weekly blood pressure task No Kyle Velez RN Weekly blood pressure task Care Plan Weekly blood pressure task No Kyle Velez RN Weekly blood pressure task Care Plan Weekly blood pressure task No Kyle Velez RN Patient has diabetic eye disease Care Plan Patient has diabetic eye disease No Kyle Velez RN Patient has diabetic eye disease Care Plan Patient has diabetic eye disease No Kyle Velez RN Patient has diabetic eye disease Care Plan Patient has diabetic eye disease No Kyle Velez RN Patient has chronic kidney disease Care Plan Patient has chronic kidney disease No Kyle Velez RN Patient has chronic kidney disease Care Plan Patient has chronic kidney disease No Kyle Velez RN Patient has chronic kidney disease Care Plan Patient has chronic kidney disease No Kyle Velez RN Weekly blood pressure task Care Plan Weekly blood pressure task No Madelin Burch RN Weekly blood pressure task Care Plan Weekly blood pressure task No Madelin Burch RN Weekly blood pressure task Care Plan Weekly blood pressure task No Madelin Burch RN Patient has diabetic eye disease Care Plan Patient has diabetic eye disease No Madelin Burch RN Patient has diabetic eye disease Care Plan Patient has diabetic eye disease No Madelin Burch RN Patient has diabetic eye disease Care Plan Patient has diabetic eye disease No Madelin Burch RN Patient has chronic kidney disease Care Plan Patient has chronic kidney disease No Madelin Burch RN Patient has chronic kidney disease Care Plan Patient has chronic kidney disease No Madelin Burch RN Patient has chronic kidney disease Care Plan Patient has chronic kidney disease No Madelin Burch RN Weekly blood pressure task Care Plan Weekly blood pressure task No Haq, Ana Cristina, FIELD CROP I FARMWORKER Weekly blood pressure task Care Plan Weekly blood pressure task No Haq, Ana Cristina, FIELD CROP I FARMWORKER Weekly blood pressure task Care Plan Weekly blood pressure task No Haq, Ana Cristina, FIELD CROP I FARMWORKER Patient has diabetic eye disease Care Plan Patient has diabetic eye disease No Haq, Ana Cristina, FIELD CROP I FARMWORKER Patient has diabetic eye disease Care Plan Patient has diabetic eye disease No Haq, Ana Cristina, FIELD CROP I FARMWORKER Patient has diabetic eye disease Care Plan Patient has diabetic eye disease No Haq, Ana Cristina, FIELD CROP I FARMWORKER Patient has chronic kidney disease Care Plan Patient has chronic kidney disease No Haq, Ana Cristina, FIELD CROP I FARMWORKER Patient has chronic kidney disease Care Plan Patient has chronic kidney disease No Haq, Ana Cristina, FIELD CROP I FARMWORKER Patient has chronic kidney disease Care Plan Patient has chronic kidney disease No Haq, Ana Cristina, FIELD CROP I FARMWORKER Weekly blood pressure task Care Plan Weekly blood pressure task No Mustapha Fritz Weekly blood pressure task Care Plan Weekly blood pressure task No Mustapha Fritz Weekly blood pressure task Care Plan Weekly blood pressure task No Mustapha Fritz Patient has diabetic eye disease Care Plan Patient has diabetic eye disease No Mustapha Fritz Patient has diabetic eye disease Care Plan Patient has diabetic eye disease No Mustapha Fritz Patient has diabetic eye disease Care Plan Patient has diabetic eye disease No Mustapha Fritz Patient has chronic kidney disease Care Plan Patient has chronic kidney disease No Mustapha Fritz Patient has chronic kidney disease Care Plan Patient has chronic kidney disease No Mustapha Fritz Patient has chronic kidney disease Care Plan Patient has chronic kidney disease No Mustapha Fritz Weekly blood pressure task Care Plan Weekly blood pressure task No Mustapha Fritz Weekly blood pressure task Care Plan Weekly blood pressure task No Mustapha Fritz Weekly blood pressure task Care Plan Weekly blood pressure task No Mustapha Fritz Patient has diabetic eye disease Care Plan Patient has diabetic eye disease No LamMustapha Patient has diabetic eye disease Care Plan Patient has diabetic eye disease No Lam Mustapha Patient has diabetic eye disease Care Plan Patient has diabetic eye disease No LamMustapha Patient has chronic kidney disease Care Plan Patient has chronic kidney disease No Lam Mustapha Patient has chronic kidney disease Care Plan Patient has chronic kidney disease No LamMustapha Patient has chronic kidney disease Care Plan Patient has chronic kidney disease No Mustapha Fritz documented as of this encounter Visit Diagnoses [...] kidney disease 08/16/2025 Weekly blood pressure task 08/17/2025 Weekly blood pressure task 08/17/2025 Weekly blood pressure task 08/17/2025 Patient has diabetic eye disease 08/17/2025 Patient has diabetic eye disease 08/17/2025 Patient has diabetic eye disease 08/17/2025 Patient has chronic kidney disease 08/17/2025 Patient has chronic kidney disease 08/17/2025 Patient has chronic kidney disease 08/17/2025 Weekly blood pressure task 08/20/2025 Weekly blood pressure task 08/20/2025 Weekly blood pressure task 08/20/2025 Patient has diabetic eye disease 08/20/2025 Patient has diabetic eye disease 08/20/2025 Patient has diabetic eye disease 08/20/2025 Patient has chronic kidney disease 08/20/2025 Patient has chronic kidney disease 08/20/2025 Patient has chronic kidney disease 08/20/2025 Weekly blood pressure task 08/20/2025 Weekly blood pressure task 08/20/2025 Weekly blood pressure task 08/20/2025 Patient has diabetic eye disease 08/20/2025 Patient has diabetic eye disease 08/20/2025 Patient has diabetic eye disease 08/20/2025 Patient has chronic kidney disease 08/20/2025 Patient has chronic kidney disease 08/20/2025 Patient has chronic kidney disease 08/20/2025 Weekly blood pressure task 08/20/2025 Weekly blood pressure task 08/20/2025 Weekly blood pressure task 08/20/2025 Patient has diabetic eye disease 08/20/2025 Patient has diabetic eye disease 08/20/2025 Patient has diabetic eye disease 08/20/2025 Patient has chronic kidney disease 08/20/2025 Patient has chronic kidney disease 08/20/2025 Patient has chronic kidney disease 08/20/2025 Weekly blood pressure task 08/20/2025 Weekly blood pressure task 08/20/2025 Weekly blood pressure task 08/20/2025 Patient has diabetic eye disease 08/20/2025 Patient has diabetic eye disease 08/20/2025 Patient has diabetic eye disease 08/20/2025 Patient has chronic kidney disease 08/20/2025 Patient has chronic kidney disease 08/20/2025 Patient has chronic kidney disease 08/20/2025 Weekly blood pressure task 08/20/2025 Weekly blood pressure task 08/20/2025 Weekly blood pressure task 08/20/2025 Patient has diabetic eye disease 08/20/2025 Patient has diabetic eye disease 08/20/2025 Patient has diabetic eye disease 08/20/2025 Patient has chronic kidney disease 08/20/2025 Patient has chronic kidney disease 08/20/2025 Patient has chronic kidney disease 08/20/2025 Weekly blood pressure task 08/20/2025 Weekly blood pressure task 08/20/2025 Weekly blood pressure task 08/20/2025 Patient has diabetic eye disease 08/20/2025 Patient has diabetic eye disease 08/20/2025 Patient has diabetic eye disease 08/20/2025 Patient has chronic kidney disease 08/20/2025 Patient has chronic kidney disease 08/20/2025 Patient has chronic kidney disease 08/20/2025 Assessment Noted Time PHQ-9 Depression Total Score: 14 025 2:01 PM EST documented as of this encounter Care Teams Senior Software Analyst Relationship Specialty Start Date End Date Catherine Jon MD [address] [place] [address] PCP - General Family Medicine 09/21/24 Kyle Velez, TYESHA [address] [place] [address] Registered Nurse Family Medicine 08/20/25 Mustapha Fritz 08/20/25 [facility] 07/26/24 Blaire Alcantara MD [facility] [address] [place] [address] [address] [place] [address] Medical Oncologist Hematology and Oncology 09/21/24 Jung Maxwell MD [facility] [address] [place] [address] [address] [place] [address] Consulting Physician Urology 09/21/24 Bryant Ferro DO Consulting Physician Cardiology 09/21/24 [facility] [address] [place] [address] Consulting Physician Nephrology 09/21/24 Denilson Fay MD, PhD [facility] [address] [place] [address] Consulting Physician Ophthalmology 09/21/24 [employer], MILK BOTTLING MACHINE OPERATOR Agency [address] [place] [address] Personal Care Services 09/21/24 documented as of this encounter
--- OUTSIDE RECORDS SUMMARY | 2025-08-21 16:29 | XMS_ITS | Encounter Summary ---
Author Organization [employer] Address 75 [facility] 7t [place] [address] Care Team Providers Care Business Objects Name Role Phone Catherine Jon MD Primary Care Provider [phone] Kyle Velez RN Unavailable [phone] Isha Do Unavailable Kyle Velez RN Unavailable [phone] Mustapha Fritz Unavailable Reason for Visit * Reason Onset Date Comments Change PCP 08/03/2024 Encounter Details Date Type Department Care Team (Late st Contact Info) Description 08/03/2024 Telephone [facility] [address] [place], [place] [phone] Anne Talamantes DO [address] [place] [address] Change PCP Social History Tobacco Use Types [...] from pt stating she has moved to [place] and is requesting to change locations due to convince. If any questions you can contact pt at [phone]. (Dutch Speaker) documented in this encounter Plan of Treatment Not on file documented as of this encounter Visit Diagnoses Not on filedocumented in this encounter Care Teams Business Objects Relationship Specialty Start Date End Date Catherine Jon MD [address] [place] [address] PCP - General Family Medicine 09/21/24 Kyle Velez RN [address] [place] [address] Registered Nurse Family Medicine 06/15/25 08/10/25 Isha Do 06/15/25 08/10/25 Kyle Velez RN [address] [place] [address] Registered Nurse Family Medicine 08/20/25 Mustapha Fritz 08/20/25 [facility] 07/26/24 Blaire Alcantara MD [facility] [address] [facility] [address] [place] [address] Medical Oncologist Hematology and Oncology 09/21/24 Jung Maxwell MD [facility] [address] [place] [address] [place] [address] Consulting Physician Urology 09/21/24 Bryant Ferro DO Consulting Physician Cardiology 09/21/24 [facility] [address] [place] [phone] Consulting Physician Nephrology 09/21/24 Denilson Fay MD, PhD [facility] [address] [place] [address] Consulting Physician Ophthalmology 09/21/24 [employer], NET LEAD DEVELOPER Agency [address] [place] [address] Personal Care Services 09/21/24 documented as of this encounter
--- OUTSIDE RECORDS SUMMARY | 2025-08-21 16:29 | XMS_ITS | Encounter Summary ---
Author Organization [employer] Address 75 [facility] 7t [place] [address] Care Team Providers Care Program Consultant Name Role Phone Catherine Jon MD Primary Care Provider [phone] Kyle Velez RN Unavailable [phone] Mustapha Fritz Unavailable Encounter Details Date Type Department Care Team ([facility] st Contact Info) Description 08/20/2025 Patient Outreach [facility] [address] [place] [address] Catherine Jon MD [address] [place], [place] [phone] Social History Tobacco Use Types Packs/Day Years [...] t he electric, gas, oil or water [employer] threatened to shut off services in your [...] has diabetic eye disease No Peng Ng [place] Patient has diabetic eye disease Care Plan Patient has diabetic eye disease No Peng gN [place] Patient has chronic kidney disease Care Plan Patient has chronic kidney disease No Peng Ng [place] Patient has chronic kidney disease Care Plan Patient has chronic kidney disease No Peng Ng [place] Patient has chronic kidney disease Care Plan [...] blood pressure task No Haq, Ana Cristina, GAS STATION ATTENDANT Weekly blood pressure task Care Plan Weekly blood pressure task No Haq, Ana Cristina, GAS STATION ATTENDANT Weekly blood pressure task Care Plan Weekly blood pressure task No Haq, Ana Cristina, GAS STATION ATTENDANT Patient has diabetic eye disease Care Plan Patient has diabetic eye disease No Haq, Ana Cristina, GAS STATION ATTENDANT Patient has diabetic eye disease Care Plan Patient has diabetic eye disease No Haq, Ana Cristina, GAS STATION ATTENDANT Patient has diabetic eye disease Care Plan Patient has diabetic eye disease No Haq, Ana Cristina, GAS STATION ATTENDANT Patient has chronic kidney disease Care Plan Patient has chronic kidney disease No Haq, Ana Cristina, GAS STATION ATTENDANT Patient has chronic kidney disease Care Plan Patient has chronic kidney disease No Haq, Ana Cristina, GAS STATION ATTENDANT Patient has chronic kidney disease Care Plan Patient has chronic kidney disease No Haq, Ana Cristina, GAS STATION ATTENDANT Weekly blood pressure task Care Plan Weekly [...] documented as of this encounter Care Teams Program Consultant Relationship Specialty Start Date End Date Catherine Jon MD [address] [place] [address] PCP - General Family Medicine 09/21/24 Kyle Velez, RN [address] [place] [address] Registered Nurse Family Medicine 08/20/25 Mustapha Fritz [facility]20[facility] Blaire Alcantara MD [facility] [address] [facility] [address] [place] [address] Medical Oncologist Hematology and Oncology 09/21/24 Jung Maxwell MD [facility] [address] [place] [address] Consulting Physician Urology 09/21/24 Bryant Ferro DO Consulting Physician Cardiology 09/21/24 [facility] [address] [place] [address] Consulting Physician Nephrology 09/21/24 Denilson Fay MD, PhD [facility] [address] [place], [place] [phone] Consulting Physician Ophthalmology 09/21/24 [employer], CLOTH FINISHING RANGE OPERATOR Agency [address] [place] [address] Personal Care Services 09/21/24 documented as of this encounter
--- OUTSIDE RECORDS SUMMARY | 2025-08-21 16:29 | XMS_ITS | Encounter Summary ---
Author Organization [employer] Address 75 [facility] 7t [place] [address] Care Team Providers Care Dealer Development Manager Name Role Phone Catherine Jon MD Primary Care Provider [phone] Encounter Details Date Type Department Care Team [...] documented as of this encounter Care Teams Dealer Development Manager Relationship Specialty Start Date End Date Catherine Jon MD [address] [place] [address] PCP - General Family Medicine 09/21/24 [facility] 07/26/24 Blaire Alcantara MD [facility] [address] [place] [address] Medical Oncologist Hematology and Oncology 09/21/24 Jung Maxwell MD [facility] [address] [place] [address] Consulting Physician Urology 09/21/24 Bryant Ferro DO Consulting Physician Cardiology 09/21/24 [facility] [address] [place] [address] Consulting Physician Nephrology 09/21/24 Denilson Fay MD, PhD [facility] [address] [place], [place] [phone] Consulting Physician Ophthalmology 09/21/24 [employer], STREET LIGHT MECHANIC Agency [address] [place] [address] Personal Care Services 09/21/24 documented as of this encounter
--- OUTSIDE RECORDS SUMMARY | 2025-08-21 16:29 | XMS_ITS ---
Author Organization [employer] Address 75 [facility] 7t [place] [address] Care Team Providers Care Cardiac Rn Name Role Phone Catherine Jon MD Primary Care Provider [phone] Kyle Velez RN Unavailable [phone] Mustapha Fritz Unavailable CM Complex Status:Outreach In Progress (Enrolling) Start date:08/20/2025 Enrollment reason:ADT Feed Overview ED- Pt went [facility] 08[facility]. Case Team Name Relationship Phone Kyle Velez RN(Responsible Staff) Registered Kiya ramírez [phone] Continued Care and Services Coordination
--- OUTSIDE RECORDS SUMMARY | 2025-08-21 16:29 | XMS_ITS | Encounter Summary ---
Author Organization [employer] Address [address] [facility] 7t [place] [address] Care Team Providers Care Real Estate Investment Analyst Name Role Phone Catherine Jon MD Primary Care Provider [phone] Kyle Velez RN Unavailable Mustapha Fritz Unavailable Reason for Visit * Reason Comments Care Coordination C3CM- chart review Encounter Details Date Type Department Care Team (Latest Contact Info) Description 08/20/2025 Patient Outreach [facility] MED & PEDS [address] [place], [place] [phone] Catherine Jon MD [address] [place] [address] Care Coordination (C3CM- chart review) Social History Tobacco Use Types Packs/Day Years [...] as of this encounter Progress Notes * Kyle Velez RN - 08/20/2025 10:48 AM EST INDU Velez RN, performed chart review, in anticipation of initial assessment with patient, aspatient has stratified for C3 Adult Complex Care through the ADT feed. History significant for anemia of chronic disease, basal cell carcinoma of skin, chronic renal failure syndrome, chronic low back pain, T2DM, diabetic nephropathy, diabetic retinopathy, GERD, hyperlipidemia, hypertension, gastroparesis, hypertensive renal disease, peripheral venous insufficiency, cardiomyopathy, malignant neoplasm of urinary bladder, secondary renal hyperparathyroidism, acute internal jugular vein thrombosis, vascular problem, pacemaker, progressive macular hypomelanosis, unstable gait, paresthesia, chronic HFrEF, osteoarthritis of right knee, peripheral polyneuropathy, decreased pedal pulses. Specialists include [facility], [facility] cardiology, Vascular surgery, [facility] endocrinology, [facility] general surgery, [facility] oncol ogy/hematology, [facility] urology. ED visits within the last 12 months include [facility] [place], [facility] [place],[facility] [place] 06/14/25, [facility] [place] 03/22/25. Last appointment in PCP office on 08/16/25. No future appointment scheduled, on recall for 08/30/25. documented in this encounter Plan of Treatment [...] Care Plan Weekly blood pressure task No Ana Cristina Haq LPN Weekly blood pressure task Care Plan Weekly blood pressure task No Ana Cristina Haq LPN Weekly blood pressure task Care Plan Weekly blood pressure task No Ana Cristina Haq, PROFESSOR OF LATIN AMERICAN STUDIES Patient has diabetic eye disease Care Plan Patient has diabetic eye disease No Ana Cristina Haq, PROFESSOR OF LATIN AMERICAN STUDIES Patient has diabetic eye disease Care Plan Patient has diabetic eye disease No Ana Cristina Haq, PROFESSOR OF LATIN AMERICAN STUDIES Patient has diabetic eye disease Care Plan Patient has diabetic eye disease No Ana Cristina Haq, PROFESSOR OF LATIN AMERICAN STUDIES Patient has chronic kidney disease Care Plan Patient has chronic kidney disease No Ana Cristina Haq, PROFESSOR OF LATIN AMERICAN STUDIES Patient has chronic kidney disease Care Plan Patient has chronic kidney disease No Ana Cristina Haq, PROFESSOR OF LATIN AMERICAN STUDIES Patient has chronic kidney disease Care Plan Patient has chronic kidney disease No Ana Cristina Haq LPN Weekly blood pressure task Care Plan Weekly [...] documented as of this encounter Care Teams Real Estate Investment Analyst Relationship Specialty Start Date End Date Catherine Jon MD [address] [place] [address] PCP - General Family Medicine 09/21/24 Kyle Velez, TYESHA 505 [place] [address] Registered Nurse Family Medicine 08/20/25 Mustapha Fritz 08/20/25 [facility] 07/26/24 Blaire Alcantara MD [facility] Oncology Center [address] [place] [address] Medical Oncologist Hematology and Oncology 09/21/24 Jung Maxwell MD [facility] Urology Center [address] [place] [address] [place] [address] Consulting Physician Urology 09/21/24 Bryant Ferro DO Consulting Physician Cardiology 09/21/24 [facility] [address] [place] [phone] Consulting Physician Nephrology 09/21/24 Denlison Fay MD, PhD [facility] [address] [place] [address] Consulting Physician Ophthalmology 09/21/24 [employer], CLINICAL DATA ABSTRACTOR Agency [address] [place] [address] Personal Care Services 09/21/24 documented as of this encounter
--- OUTSIDE RECORDS SUMMARY | 2025-08-21 16:29 | XMS_ITS | Encounter Summary ---
Author Organization [employer] Address 75 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 I am sending testing and seeing if she has a UTI, but can we please reachout to his office and inform him. Please and thanks! Catherine Received call back from Dr. Reaves's office, and spoke to nurse. Advised of above message and that awork up is started. Nurse states not new for her and she does have bladder cancer advised that the provider is aware of this but was concerned and ordered some testing. Will re contact if needed and advise. documented in this encounter Plan of Treatment [...] chronic kidney disease No Lanette Bird RN documented as of this encounter Visit Diagnoses [...] 08/17/2025 Patient has chronic kidney disease 08/17/2025 Assessment Noted Time PHQ-9 Depression Total Score: 14 025 2:01 PM EST documented as of this encounter Care Teams Track Repair Supervisor Relationship Specialty Start Date End Date Catherine Jon MD [address] [place] [address] PCP - General Family Medicine 09/21/24 [facility] 07/26/24 Blaire Alcantara MD [facility] On[facility] Center [address] [place] [address] Medical Oncologist Hematology and Oncology 09/21/24 Jung Maxwell MD [facility] Urology Center [address] [place] [address] Dr Chris [address] [place] [address] Consulting Physician Urology 09/21/24 Bryant Ferro DO Consulting Physician Cardiology 09/21/24 [facility] [address] [place] [address] Consulting Physician Nephrology 09/21/24 Denilson Fay MD, PhD [facility] [address] [place] [address] Consulting Physician Ophthalmology 09/21/24 [employer], NATURAL REMEDY CONSULTANT Agency [address] [place] [address] Personal Care Services 09/21/24 documented as of this encounter
--- OUTSIDE RECORDS SUMMARY | 2025-08-21 16:29 | XMS_ITS ---
Author Organization [employer] Address 75 [facility] 7t [place] [address] Care Team Providers Care Turntable Worker Name Role Phone Catherine Jon MD Primary Care Provider [phone] Kyle Velez RN Unavailable [phone] Mustapha Fritz Unavailable CH[facility] Complex Status:Outreach In Progress (Enrolling) Start date:08/20/2025 Enrollment reason:ADT Feed Overview ED- Pt went to [facility] ED on 08/17/25. Case Team Name Relationship Phone Mustapha Fritz(Responsible Staff) [phone] Continued Care and Services Coordination
--- OUTSIDE RECORDS SUMMARY | 2025-08-21 16:29 | XMS_ITS | Encounter Summary ---
Author Organization [employer] Address [address] [facility] 7t [place] [address] Care Team Providers Care Torpedo Worker Name Role Phone Catherine Jon MD Primary Care Provider [phone] Encounter Details Date Type Department Care Team ([facility] st Contact Info) Description 08/16/2025 Telephone [facility] MED [facility]EDS [address] [place], [place] [phone] Catherine Jon MD [address] [place], [place] [phone] Social History Tobacco Use Types Packs/Day Years [...] documented as of this encounter Care Teams Torpedo Worker Relationship Specialty Start Date End Date Catherine Jon MD [address] [place] [address] PCP - General Family Medicine 09/21/24 [facility] 07/26/24 Blaire Alcantara MD [facility] Oncology Center [address] [place] [address] [address] [place] [address] Medical Oncologist Hematology and Oncology 09/21/24 Jung Maxwell MD [facility] Urology Center [address] [place] [address] Consulting Physician Urology 09/21/24 Bryant Ferro DO Consulting Physician Cardiology 09/21/24 [facility] [address] [place] [address] Consulting Physician Nephrology 09/21/24 Denilson Fay MD, PhD [facility] [address] [place] [address] Consulting Physician Ophthalmology 09/21/24 [employer], MODEL AND DYE PERSON Agency [address] [place] [phone] Personal Care Services 09/21/24 documented as of this encounter
--- OUTSIDE RECORDS SUMMARY | 2025-08-21 16:29 | XMS_ITS | Encounter Summary ---
Author Organization [employer] Address 75 [facility] 7t [place] [address] Care Team Providers Care Service Center Assistant Name Role Phone Catherine Jon MD Primary Care Provider [phone] Kyle Velez RN Unavailable [phone] Isha Do Unavailable Kyle Velez RN Unavailable [phone] Mustapha Fritz Unavailable Encounter Details Date Type Department Care Team (Late st Contact Info) Description 09/30/2022 Orders Only [facility] MED & PEDS [address] [place] [address] Anne Gama LPN Social History Tobacco Use [...] on filedocumented in this encounter Care Teams Service Center Assistant Relationship Specialty Start Date End Date Catherine Jon MD 505 [place] [address] PCP - General Family Medicine 09/21/24 Kyle Velez, RN 505 [place] [address] Registered Nurse Family Medicine 06/15/25 08/10/25 Isha Do 06/15/25 08/10/25 Kyle Velez, RN [address] [place] [address] Registered Nurse Family Medicine 08/20/25 Mustapha Fritz 08[facility]20/25 [facility] Blaire Alcantara MD [facility] Oncology Center [address] [facility] [address] [place] [address] Medical Oncologist Hematology and Oncology 09/21/24 Jung Maxwell MD [facility] Urology Center [address] [place] [address] [place] [address] Consulting Physician Urology 09/21/24 Bryant Ferro DO Consulting Physician Cardiology 09/21/24 [facility] [address] [place] [address] Consulting Physician Nephrology 09/21/24 Denilson Fay MD, PhD [facility] [address] [place], [place] [phone] Consulting Physician Ophthalmology 09/21/24 [employer], BRAKE REPAIR SUPERVISOR Agency [address] [place] [address] Personal Care Services 09/21/24 documented as of this encounter
--- OUTSIDE RECORDS SUMMARY | 2025-08-21 16:29 | XMS_ITS | Encounter Summary ---
Author Organization [employer] Address 75 [facility] 7t [place] [address] Care Team Providers Care Doughnut Dough Mixer Name Role Phone Catherine Jon MD Primary Care Provider [phone] Encounter Details Date Type Department Care Team (Late st Contact Info) Description 08/17/2025 Orders Only GENERIC EXTERNAL DATA DEPARTMENT Provider, [...] Bird RN documented as of this encounter Procedures Procedure Name Priority Date/Time Associated Diagnosis Comments CULTURE, URINE, ROUTINE Routine 08/17/2025 7:05 PM EST URINALYSIS, COMPLETE, WITH REFLEX TO CULTURE Routine 08/17/2025 6:44 PM EST CBC WITH AUTO DIFFERENTIAL Routine 08/17/2025 3:17 PM EST APTT Routine 08/17/2025 3:17 PM EST PROTHROMBIN TIME-INR Routine 08/17/2025 3:17 PM EST COMPREHENSIVE METABOLIC PANEL Routine 08/17/2025 3:17 PM EST CULTURE, URINE, ROUTINE Routine 08/17/2025 2:52 PM EST documented in this encounter Results * Culture, Urine, Routine (08/17/2025 7:05 PM EST) Urine Urine specimen obtained by clean catch procedure / Unknown 08/17/2025 7:05 PM EST 08/17/2025 7:05 PM EST Comment:UACC Narrative [facility] - 08/19/2025 10:30 AM EST Urine Culture Report Result Urine Culture 10,000 to 50,000 cfu/ml Urine Culture Mixed bacterial michael characteristic of Urine Culture urogenital contamination. Specimen Source: Urine clean catch us Generic External Data Provider LAB MICROBIOLOGY - GENERAL ORDERABLES Final Result [facility] [address] [place] [phone] * (ABNORMAL) Urinalysis, Complete, with Reflex to Culture (08/17/2025 6:44 PM EST) Color Urine Yellow [facility] Appearance Urine Cloudy [facility] PH 6.5 5.0 - 9.0 [facility] Glucose Urine UA 250(A) Negative mg/dL [facility] Urine Blood Large (3+)(A) Negative [facility] Specific [place] - Urine 1.015 1.005 - 1.025 [facility] Urine Protein 300 (3+)(A) Neg-Trace mg/dL [facility] Urine Ketones Negative Negative mg/dL [facility] Nitrite Urine Negative Negative [facility] Leukocyte Esterase Urine Moderate (2+)(A) Negative [facility] RBC Urine >20(A) 0 - 2 /HPF [facility] Urine WBC 21-50(A) 0 - 5 /HPF [facility] Urine Squamous Epithelial Cell 11-20 0 - 2 /HPF [facility] Urine Bacteria 3+ None Seen [facility] Hyaline Casts, Urine 0-2 0 - 2 /LPF [facility] 08/17/2025 6:44 PM EST 08/17/2025 6:50 PM EST Narrative [facility] - 08/17/2025 7:05 PM EST Urine, Clean Catch us Generic External Data Provider LAB URINE ORDERAB LES Final Result [facility] [address] [place], [place] [phone] * (ABNORMAL) Comprehensive Metabolic Panel (08/17/2025 3:17 PM EST) Sodium 138 135 - 145 mmol/L [facility] Potassium 4.0 3.3 - 5.1 mmol/L [facility] Chloride 101 96 - 108 mmol/L [facility] Carbon Dioxide 27 22 - 29 mmol/L [facility] Anion Gap 14 12 - 20 [facility] Urea Nitrogen (BUN) 47(H) 9 - 16 mg/dL [facility] Creatinine, Serum 5.62(HH) 0.5 - 1.4 mg/dL [facility] Comment:Critical value for t est(s): CREA2 Results called to norma back by:KARMEN Person calling:ALKASAB Date: 08/17/25Time:15:46 Creatinine Clr Calc Pharmacy 8.8 [facility] Comment:Provided height and weight: 154.94 cm,61.235 kg.eGFR (calculated from the MDRD study equation) and eCrCl(calculated from the Cockcroft-Gault equation) are based ondifferent parameters and may not yield comparable results.If eCrCl result is absurd, please check patient'sheight/weight. Estimated Glomerular Filt Rate 8 [facility] Comment:Chronic Kidney Disea se: Estimated GFR < 60 mL/min/1.92l4Eovqrl Kidney Disease: Estimated GFR < 15 mL/min/1.73m2 Glucose 213(H) 60 - 115 mg/dL [facility] Calcium 8.5 8.4 - 10.2 mg/dL [facility] Bilirubin, Total 0.2 0.0 - 1.0 mg/dL [facility] Aspartate Amino Transferase 25 5 - 31 U/L [facility] Alanine Aminotransferase 7 0 - 31 U/L [facility] Total Protein 6.5 6.5 - 8.0 g/dL [facility] Albumin Level 3.4(L) 3.5 - 5.0 g/dL [facility] Alkaline Phosphatase 97 39 - 117 U/L [facility] 08/17/2025 3:17 PM EST 08/17/2025 3:20 PM EST Generic External Data Provider LAB BLOOD ORDERAB LES Final Result Performing Organization Address [facility]/ZIP Co de Phone Number [facility] [address] [place] [phone] * Partial Thromboplastin Time, Activated (APTT) (08/17/2025 3:17 PM EST) Partial Thromboplastin Time 30.2 26.7 - 34.1 SEC [facility] 08/17/2025 3:17 PM EST 08/17/2025 3:20 PM EST Generic External Data Provider LAB BLOOD ORDERAB LES Final Result Performing Organization Address [facility]/ZIP Co de Phone Number [facility] [address] [place] [phone] * Prothrombin Time-INR (08/17/2025 3:17 PM EST) Prothrombin Time 13.4 11.2 - 13.5 SEC [facility] INTERNATIONAL NORM RATIO 1.1 0.9 - 1.1 [facility] Comment:INTERNATIONAL NORMAL IZED RATIO (INR) REFERENCE RANGES Reference RangeFor patients not on anticoagulant therapy: 0.9 - 1.1INR ranges for oral anticoagulanttherapy:For prevention and treatment of venous thrombosis and pulmonary embolism: 2.0 - 3.0For acute myocardial infarction with aspirin therapy: 2.0 - 3.0For acute myocardial infarction without aspirin therapy: 3.0 - 4.0For patients with mechanical prosthetic heart valves: 2.5 - 3.5 08/17/2025 3:17 PM EST 08/17/2025 3:20 PM EST us Generic External Data Provider LAB BLOOD ORDERAB LES Final Result [facility] [address] [place] [phone] * (ABNORMAL) CBC auto differential (08/17/2025 3:17 PM EST) White Blood Count 7.5 4.8 - 10.8 X10*3/uL [facility] Red Blood Count 3.12(L) 4.20 - 5.50 X10*6/uL [facility] Hemoglobin 9.7(L) 12.0 - 16.0 g/dl [facility] Hematocrit 30.3(L) 37.0 - 47.0 % [facility] Mean Corpuscular Volume 97.1 80.0 - 98.0 fL [facility] Mean Corpuscular Hemoglobin 31.1 27.0 - 33.0 pg [facility] Mean Corpuscular HGB Conc 32.0 31.0 - 35.0 g/dl [facility] Red Cell Distribution Width 15.4 11.0 - 16.0 % [facility] Platelet Count 194 160 - 400 X10*3/uL [facility] Mean Platelet Volume 9.7 9.4 - 12.3 fL [facility] Neutrophils Percent Auto 71.2 45 - 73 % [facility] Imm Gran Pct Auto 0.4 0.0 - 0.4 % [facility] Lymphocytes Percent Auto 18.0(L) 20 - 40 % [facility] Monocytes Percent Auto 7.0 2 - 11 % [facility] Eosinophils Percent Auto 2.7 0 - 4 % [facility] Basophils Percent Auto 0.7 0 - 2 % [facility] NRBC Pct Auto 0.0 0.0 - 0.2 /100WBC [facility] Neutrophils Absolute Auto 5.4 2.0 - 8.3 x10*3/uL [facility] Imm Gran Abs Auto 0.03 0.00 - 0.03 X10*3/uL [facility] Lymphocytes Absolute Auto 1.4 1.2 - 4.9 X10*3/uL [facility] Monocytes Absolute Auto 0.5 0.1 - 1.2 X10*3/uL [facility] Eosinophils Absolute Auto 0.2 0.0 - 0.4 X10*3/uL [facility] Basophils Absolute Auto 0.1 0.0 - 0.2 X10*3/uL [facility] NRBC Abs Auto 0.000 0.0 - 0.012 X10*3/uL [facility] 08/17/2025 3:17 PM EST 08/17/2025 3:20 PM EST us Generic External Data Provider LAB BLOOD ORDERAB LES Final Result Performing Organization Address City/[facility]/ZIP Co de Phone Number [facility] [address] [place] [phone] * Culture, Urine, Routine (08/17/2025 2:52 PM EST) Urine Urine specimen obtained by clean catch procedure / Unknown 08/17/2025 2:52 PM EST 08/17/2025 2:52 PM EST Comment:UACC Narrative [facility] - 08/18/2025 11:14 AM EST Urine Culture Report Result Urine Culture < 10,000 cfu/ml Specimen Source: Urine clean catch us Catherine Jon MD LAB MICROBIOLOGY - GENERAL OR DERABLES Final Result Performing Organization Address City/[facility]/ZIP Co de Phone Number [facility] [address] [place] [phone] documented in this encounter Visit Diagnoses [...] documented as of this encounter Care Teams Doughnut Dough Mixer Relationship Specialty Start Date End Date Cahterine Jon MD [address] [place] [address] PCP - General Family Medicine 09/21/24 [facility] 07/26/24 Blaire Alcantara MD [facility] On[facility] Center [address] [facility] [address] [place] [address] Medical Oncologist Hematology and Oncology 09/21/24 Jung Maxwell MD [facility] Urology Center [address] [place] [address] [address] [place] [address] Consulting Physician Urology 09/21/24 Bryant Ferro DO Consulting Physician Cardiology 09/21/24 [facility] [address] [place] [address] Consulting Physician Nephrology 09/21/24 Denilson Fay MD, PhD [facility] [address] [place], [place] [phone] Consulting Physician Ophthalmology 09/21/24 [employer], MOBILE PRACTICE LEAD Agency [address] [place] [address] Personal Care Services 09/21/24 documented as of this encounter
--- OUTSIDE RECORDS SUMMARY | 2025-08-21 16:29 | XMS_ITS | Encounter Summary ---
Author Organization [employer] Address [address] [facility] 7t [place] [address] Care Team Providers Care Battery Recharger Name Role Phone Catherine Jon MD Primary Care Provider [phone] Kyle Velez RN Unavailable [phone] Mustapha Fritz Unavailable Reason for Visit * Reason Comments Med Refill Encounter Details Date Type Department Care Team (Late st Contact Info) Description 08/18/2025 Refill [facility] MED & PEDS [address] [place], [place] [phone] Catherine Jon MD 505 [place], [place] [phone] Type 2 diabetes mellitus with hyperglycemia, unspecified whether terminologist insulin use (HCC) Social History Tobacco Use [...] 2 diabetes mellitus with hyperglycemia, unspecified whether terminologist insulin use (HCC) documented in this encounter [...] documented as of this encounter Care Teams Battery Recharger Relationship Specialty Start Date End Date Catherine Jon MD [address] [place] [address] PCP - General Family Medicine 09/21/24 Kyle Velez, RN 505 [facility] [place] [address] Registered Nurse Family Medicine 08/20/25 Mustapha Fritz 08/20/25 [facility] Blaire Alcantara MD [facility] On[facility] Center [address] [facility] [address] [place] [address] Medical Oncologist Hematology and Oncology 09/21/24 Jung Maxwell MD [facility] Urology Center [address] [place] [address] [place] [address] Consulting Physician Urology 09/21/24 Bryant Ferro DO Consulting Physician Cardiology 09/21/24 [facility] [address] [place] [address] Consulting Physician Nephrology 09/21/24 Denilson Fay MD, PhD [facility] [address] [place], [place] [phone] Consulting Physician Ophthalmology 09/21/24 [employer], ACCOUNT ENGINEER Agency [address] [place] [address] Personal Care Services 09/21/24 documented as of this encounter
--- OUTSIDE RECORDS SUMMARY | 2025-08-21 16:30 | XMS_ITS | Clinical Summary ---
Author Organization [employer] Address [address] [place] [address] Care Team Providers Care Grocery Worker Name Role Phone Catherine Jon MD Primary Care Provider [phone] Kyle Velez RN Unavailable [phone] Mustapha Fritz Unavailable Allergies No known active allergies Medications Blood Glucose Monitoring Suppl (Jump[employer]Style [place] Lite) w/Device kit Use to test blood [...] needed for low blood sugar. 50 tablet 024 Active Continuous Glucose Dump Grounds Checker (FreeStyle Gary 2 [place]) device Scan sensor every 8 hours 1 each 024 Active Alcohol Swabs (Alcohol Prep) 70 % padsIndications: Type 2 diabetes mellitus with other specified complication, unspecified whether casework manager insulin use (HCC) Test blood glucose QID 100 each 11 025 Active Senna S 8.6-50 MG tablet Take 1 tablet by mouth if needed at bedtime for constipation. 30 tablet 1 025 Active Pentips Generic Pen [place] 32G X 4 MM misc USE DIRECTED FOUR TIMES DAILY WITH INSULIN 100 each 11 Active D3 Super Strength 50 MCG (2000 [...] nephropathy, with long-term current use of insulin ([facility]) Use to monitor TID 150 strip 7 Active cephalexin (Keflex) 500 MG capsule Take 1 capsule (500 mg) by mouth Once per day. Cephalexin 500 mg every 24 hours plus 500 mg at the end of each dialysis session is suggest 10 capsule 08/16/20 25 4:19 PM EST Active TRUEplus Glucose 4 [...] diabetes mellitus with diabetic neuropathy, unspecified whether casework manager insulin use ([facility]) Take 1 tablet (50 mg) by mouth at bedtime. 30 tablet 1 Active Continuous Glucose Sensor (FreeStyle Gary 2 Sensor) mis Apply 1 sensor every 14 days 2 [...] 2 diabetes mellitus with hyperglycemia, unspecified whether custodial insulin use (HCC) INJECT 8-18 UNITS SUBCUTANEOUSLY THREE TIMES DAILY BEFORE BREAKFAST DIRECTED 15 mL 2 Active omeprazole (PriLOSEC) [address] capsule Take 1 capsule (20 mg) by mouth before breakfast and before evening meal. Do not crush or chew. 180 capsule Active Trulicity 1.5 MG/0.5ML solution pen-injectorIndi cations:Type 2 diabetes mellitus with other specified complication, with long-term current use of insulin ([facility]) INJECT ONE PEN (=1.5MG) SUBCUTANEOUSLY ONCE A WEEK DIRECTED 2 mL 023 2024 Discontinued(T herapy completed) FREESTYLE LITE test stripIndications :Type 2 diabetes mellitus with diabetic nephropathy, with long-term current use of insulin ([facility]) TEST BLOOD SUGAR SIX TIMES DAILY [...] Glucose Sensor (FreeStyle Gary 2 Sensor) [facility] [place] Apply 1 sensor every 14 days 2 each 024 2024 Discontinued(R eorder (will not trigger notification to Pharmacy)) hydrALAZINE (Apresoline) 10 MG tabletIndication s:Essential hypertension Take 1 tablet (10 mg) by mouth 2 times daily. 60 tablet 11 025 2024 Discontinued(T herapy completed) apixaban (Eliquis) 2.5 MG tablet TAKE 1 TABLET BY MOUTH TWICE DAILY IN THE MORNING AND IN THE EVENING 60 tablet 5 2024 Discontinued insulin lispro (HumaLOG) 100 UNIT/ML injectionIndicat ions:Type 2 diabetes mellitus with hyperglycemia, unspecified whether casework manager insulin use (HCC) INJECT 8-18 UNITS SUBCUTANEOUSLY [...] ONE TABLET NEEDED FOR LOW BLOOD SUGAR 2024 Discontinued(R eorder (will not trigger notification to Pharmacy)) amitriptyline (Elavil) 50 MG tabletIndication s:Type 2 diabetes mellitus with diabetic neuropathy, unspecified whether casework manager insulin use (HCC) TAKE 1 TABLET BY MOUTH AT BEDTIME 30 tablet 1 2024 Discontinued omeprazole (PriLOSEC) [address] capsule Take 1 capsule (20 mg) by mouth before breakfast and before evening meal. Do not crush or chew. 180 capsule 2024 Discontinued(R eorder (will not trigger notification to Pharmacy)) doxycycline (Vibra-Tabs) 100 MG tablet Take 100 mg by mouth 2 times daily. 2024 Discontinued(T herapy completed) traMADol (Ultram) 50 MG tablet TAKE 1 TABLET BY MOUTH TWICE DAILY NEEDED FOR PAIN (PAIN SCALE 7-10) 2024 Discontinued(T herapy completed) amitriptyline (Elavil) 50 MG tabletIndication s:Type 2 diabetes mellitus with diabetic neuropathy, unspecified whether casework manager insulin use (HCC) TAKE 1 TABLET BY [...] cont following with hematology Vascular problem 09/21/2024 detention current use of insulin ([facility]) 09/21 Pacemaker 09/21/2024 Progressive macular hypomelanosis 09/21/2024 [...] BS numbers. Advised to follow up with Choral Director to restart Farxiga. Ordering lab work for further evaluation. Advised to bring paperwork for Advanced Directives next visit. Follow up in 4 months. Encounters Date Type Department Care Team Description 08/21/2025 Orders Only GENERIC EXTERNAL DATA DEPARTMENT Provider, Generic External Data 08/20/2025 Patient Outreach [facility] [address] [place] [id number] Catherine Jon MD Care Coordination ([facility] Mustapha Fritz, initial outreach_lvm) 08/20/2025 Patient Outreach [address] [address] Catherine Jon MD Care Coordination ([facility]/GABRIEL Mustapha Fritz, Chart review ) 08/20/2025 Telephone [facility] [address] [place] [address] Catherine Jon MD ER Follow-up 08/20/2025 Patient Outreach [facility] [address] [place] [address] Catherine Jon MD Care Coordination (C3- chart review) 08/20/2025 Patient Outreach [address] [address] Catherine Jon MD 08/18/2025 Refill [facility] [address] [place] [address] Catherine Jon MD Type 2 diabetes mellitus with hyperglycemia, unspecified whether casework manager insulin use (HCC) 08/17/2025 Telephone [facility] [address] [place] [phone] Lanette Bird, TYESHA 08/17/2025 Orders Only GENERIC EXTERNAL DATA DEPARTMENT Provider, Generic External Data 08/16/2025 3:30 PM EST Office Visit [facility] [address] [place] [address] Catherine Jon MD Gross hematuria (Primary Dx); Colon cancer screening; Encounter for health-related screening; Type 2 diabetes mellitus with diabetic nephropathy, with long-term current use of insulin (HCC); Peripheral polyneuropathy; Type 2 diabetes mellitus with diabetic neuropathy, unspecified whether casework manager insulin use (HCC); Type 2 diabetes mellitus with hyperglycemia, unspecified whether casework manager insulin use (HCC) 08/16/2025 Telephone [facility] [address] [place] [address] Catherine Jon MD 08/16/2025 Travel 08/10/2025 Patient Outreach [address] [address] Catherine Jon MD Care Coordination (C3 -[facility] Do telephone call outreach) 08/06/2025 Telephone [facility] [address] [place] [address] Catherine Jon MD 08/03/2025 Patient Outreach [address] [address] Catherine Jon MD Care Coordination (C3 -[facility] Do telephone call outreach) 08/03/2025 Patient Outreach [address] [address] Catherine Jon MD Care Coordination (C3 [facility] Do telephone call outreach) 08/02/2025 1:45 PM EST Office Visit [facility] [address] [place] [address] Catherine Jon MD Decreased pedal pulses (Primary Dx); Type 2 diabetes mellitus with diabetic nephropathy, with long-term current use of insulin (HCC); Peripheral polyneuropathy; Osteoarthritis of right knee, unspecified osteoarthritis type 08/02/2025 Travel 08/01/2025 Telephone [facility] [address] [place] [address] Catherine Jon MD Chart Prep 07/27/2025 Patient Outreach [address] [address] Catherine Jon MD Care Coordination ([facility] Do telephone call outreach) 07/22/2025 Refill [facility] [address] [place] [phone] Catherine Jon MD Type 2 diabetes mellitus with diabetic neuropathy, unspecified whether casework manager insulin use (HCC) 07/20/2025 Patient Outreach [address] [address] Catherine Jon MD Care Coordination (C3 [facility] telephone call outreach) 07/13/2025 Patient Outreach [address] [address] Catherine Jon MD Care Coordination (C3 [facility] telephone call outreach) 07/04/2025 Patient Outreach [address] [address] Catherine Jon MD Care Coordination (C3 [facility] telephone call outreach) 06/29/2025 Refill [facility] [address] [place] [phone] Anne Talamantes DO Diabetic nephropathy associated with type 2 diabetes mellitus (HCC) 06/21/2025 [facility] Information [address] [address] Karoline Portillo MD 06/19/2025 Patient Outreach [address] [address] Catherine Jon MD Transition Of Care (Tcm) (F unscheduled) 06/18/2025 Patient Outreach [address] [address] Catherine Jon MD 06/18/[address] [address] Catherine Jon MD No Show 06/18/2025 Patient Outreach [address] [address] Catherine Jon MD Transition Of Care (Tcm) (HDF unscheduled) 06/15/2025 Patient Outreach [address] [address] Catherine Jon MD Care Coordination (C3 -[facility] Isha Rodrigesz chart review) 06/15/2025 Patient Outreach [facility] [address] [place], [place] [phone] Catherine Jon MD Care Coordination (C3- chart review) 06/15/2025 Patient Outreach [facility] [address] [place] [address] Catherine Jon MD 06/05/2025 Refill [facility] [address] [place] [address] Catherine Jon MD 05/25/2025 Refill [facility] [address] [place], [place] [phone] Catherine Jon MD Type 2 diabetes mellitus with diabetic neuropathy, unspecified whether custodial insulin use ([facility]) from Last 3 Months Immunizations Immunization [...] 10/24/2021, Additional history exists COVID-19 Vaccine ( - 2024- season) 2025 03/20/2022, 08/18/2021, 07/28/2021 Influenza Vaccine [...] Care Plan Weekly blood pressure task No Hernandez [place], [place] Patient has diabetic eye disease Care Plan Patient has diabetic eye disease No Hernandez [place], [place] Patient has diabetic eye disease Care Plan Patient has diabetic eye disease No Hernandez [place], [place] Patient has diabetic eye disease Care Plan Patient has diabetic eye disease No Hernandez [place], [place] Patient has chronic kidney disease Care Plan Patient has chronic kidney disease No Peng Ng [place] Patient has chronic kidney disease Care Plan Patient has chronic kidney disease [facility] [place] Patient has chronic kidney disease Care Plan Patient has chronic kidney disease No Peng Ng [place] Weekly blood pressure task Care Plan Weekly [...] Patient has diabetic eye disease No Beronica uBrch RN Patient has chronic kidney disease Care Plan Patient has chronic kidney disease No Beronica Burch RN Patient has chronic kidney disease Care Plan Patient has chronic kidney disease No Beronica Burch RN Patient has chronic kidney disease Care Plan Patient has chronic kidney disease No Beronica Burch RN Weekly blood pressure task Care Plan Weekly blood pressure task No Kyle Vleez RN Weekly blood pressure task Care Plan [...] Patient has diabetic eye disease No Madelin Burhc RN Patient has diabetic eye disease Care [...] pressure task No Haq, Ana Cristina, FIELD MANAGER Weekly blood pressure task Care Plan Weekly blood pressure task No Haq, Ana Cristina, FIELD MANAGER Weekly blood pressure task Care Plan Weekly blood pressure task No Haq, Ana Cristina, FIELD MANAGER Patient has diabetic eye disease Care Plan Patient has diabetic eye disease No Haq, Ana Cristina, FIELD MANAGER Patient has diabetic eye disease Care Plan Patient has diabetic eye disease No Haq, Ana Cristina, FIELD MANAGER Patient has diabetic eye disease Care Plan Patient has diabetic eye disease No Haq, Ana Cristina, FIELD MANAGER Patient has chronic kidney disease Care Plan Patient has chronic kidney disease No Haq, Ana Cristina, FIELD MANAGER Patient has chronic kidney disease Care Plan Patient has chronic kidney disease No Haq, Ana Cristina, FIELD MANAGER Patient has chronic kidney disease Care Plan Patient has chronic kidney disease No Haq, Ana Cristina, FIELD MANAGER Weekly blood pressure task Care Plan Weekly [...] has chronic kidney disease No Mustapha Fritz Procedures Procedure Name Priority Date/Time Associated Diagnosis Comments APTT Routine 08/21/2025 3:14 PM EST COMPREHENSIVE METABOLIC PANEL Routine 08/21/2025 3:14 PM EST PROTHROMBIN TIME-INR Routine 08/21/2025 3:14 PM EST CBC WITH AUTO DIFFERENTIAL Routine 08/21/2025 3:14 PM EST VASC US UPPER EXTREMITY VENOUS DUPLEX RIGHT Routine 08/21/2025 1:32 PM EST CULTURE, URINE, ROUTINE Routine 08/17/2025 7:05 PM EST URINALYSIS, COMPLETE, WITH REFLEX TO CULTURE Routine 08/17/2025 6:44 PM EST COMPREHENSIVE METABOLIC PANEL Routine 08/17/2025 3:17 PM EST APTT Routine 08/17/2025 3:17 PM EST PROTHROMBIN TIME-INR Routine 08/17/2025 3:17 PM EST CBC WITH AUTO DIFFERENTIAL Routine 08/17/2025 3:17 PM EST CULTURE, URINE, ROUTINE Routine 08/17/2025 2:52 PM EST URINALYSIS, COMPLETE, WITH REFLEX TO CULTURE Routine 08/17/2025 8:30 AM EST Gross hematuria POCT GLYCATED HEMOGLOBIN, TOTAL Routine 08/02/2025 2:03 [...] Relevant to Health Maintenance Results * (ABNORMAL) CBC auto differential (08/21/2025 3:14 PM EST) Only the most recent of2 resultswithin the time period is included. White Blood Count 8.9 4.8 - 10.8 X10*3/uL [facility] Red Blood Count 3.59(L) 4.20 - 5.50 X10*6/uL [facility] Hemoglobin 11.0(L) 12.0 - 16.0 g/dl [facility] Hematocrit 34.6(L) 37.0 - 47.0 % [facility] Mean Corpuscular Volume 96.4 80.0 - 98.0 fL [facility] Mean Corpuscular Hemoglobin 30.6 27.0 - 33.0 pg [facility] Mean Corpuscular HGB Conc 31.8 31.0 - 35.0 g/dl [facility] Red Cell Distribution Width 15.1 11.0 - 16.0 % [facility] Platelet Count 215 160 - 400 X10*3/uL [facility] Mean Platelet Volume 10.0 9.4 - 12.3 fL [facility] Neutrophils Percent Auto 72.3 45 - 73 % [facility] Imm Gran Pct Auto 0.2 0.0 - 0.4 % [facility] Lymphocytes Percent Auto 18.2(L) 20 - 40 % [facility] Monocytes Percent Auto 5.9 2 - 11 % [facility] Eosinophils Percent Auto 2.8 0 - 4 % [facility] Basophils Percent Auto 0.6 0 - 2 % [facility] NRBC Pct Auto 0.0 0.0 - 0.2 /100WBC [facility] Neutrophils Absolute Auto 6.4 2.0 - 8.3 x10*3/uL [facility] Imm Gran Abs Auto 0.02 0.00 - 0.03 X10*3/uL [facility] Lymphocytes Absolute Auto 1.6 1.2 - 4.9 X10*3/uL [facility] Monocytes Absolute Auto 0.5 0.1 - 1.2 X10*3/uL [facility] Eosinophils Absolute Auto 0.3 0.0 - 0.4 X10*3/uL [facility] Basophils Absolute Auto 0.1 0.0 - 0.2 X10*3/uL [facility] NRBC Abs Auto 0.000 0.0 - 0.012 X10*3/uL [facility] 08/21/2025 3:14 PM EST 08/21/2025 3:16 PM EST us Generic External Data Provider LAB BLOOD ORDERAB LES Final Result Performing Organization Address [facility] de Phone Number [facility] [address] [place] [phone] * Partial Thromboplastin Time, Activated (APTT) (08/21/2025 3:14 PM EST) Only the most recent of2 resultswithin the time period is included. Partial Thromboplastin Time 31.4 26.7 - 34.1 SEC [facility] 08/21/2025 3:14 PM EST 08/21/2025 3:16 PM EST us Generic External Data Provider LAB BLOOD ORDERAB LES Final Result Performing Organization Address City/[facility]/ZIP Co de Phone Number [facility] [address] [place] [phone] * Prothrombin Time-INR (08/21/2025 3:14 PM EST) Only the most recent of2 resultswithin the time period is included. Prothrombin Time 13.3 11.2 - 13.5 SEC [facility] INTERNATIONAL NORM RATIO 1.1 0.9 - 1.1 [facility] Comment:INTERNATIONAL NORMAL IZED RATIO (INR) REFERENCE RANGES Reference RangeFor patients not on anticoagulant therapy: 0.9 - 1.1INR ranges for oral anticoagulanttherapy:For prevention and treatment of venous thrombosis and pulmonary embolism: 2.0 - 3.0For acute myocardial infarction with aspirin therapy: 2.0 - 3.0For acute myocardial infarction without aspirin therapy: 3.0 - 4.0For patients with mechanical prosthetic heart valves: 2.5 - 3.5 08/21/2025 3:14 PM EST 08/21/2025 3:16 PM EST us Generic External Data Provider LAB BLOOD ORDERAB LES Final Result [facility] [address] [place] [phone] * (ABNORMAL) Comprehensive Metabolic Panel (08/21/2025 3:14 PM EST) Only the most recent of2 resultswithin the time period is included. Pathologist [facility] Sodium 139 135 - 145 mmol/L [facility] Potassium 4.0 3.3 - 5.1 mmol/L [facility] Chloride 99 96 - 108 mmol/L [facility] Carbon Dioxide 29 22 - 29 mmol/L [facility] Anion Gap 15 12 - 20 [facility] Urea Nitrogen (BUN) 52(H) 9 - 16 mg/dL [facility] Creatinine, Serum 5.80(HH) 0.5 - 1.4 mg/dL [facility] Comment:Critical value for t est(s): CREA Results called to and readback by: EMBER Person calling: [email or web address] Date: 08/21/25Time: 1537 Creatinine Clr Calc Pharmacy 8.7 [facility] Comment:Provided height and weight: 154.94 cm,64.2 kg.eGFR (calculated from the MDRD study equation) and eCrCl(calculated from the Cockcroft-Gault equation) are based ondifferent parameters and may not yield comparable results.If eCrCl result is absurd, please check patient'sheight/weight. Estimated Glomerular Filt Rate 7 [facility] Comment:Chronic Kidney Disea se: Estimated GFR < 60 mL/min/1.06d6Zrbzkm Kidney Disease: Estimated GFR < 15 mL/min/1.73m2 Glucose 163(H) 60 - 115 mg/dL [facility] Calcium 8.8 8.4 - 10.2 mg/dL [facility] Bilirubin, Total 0.2 0.0 - 1.0 mg/dL [facility] Aspartate Amino Transferase 42(H) 5 - 31 U/L [facility] Alanine Aminotransferase 24 0 - 31 U/L [facility] Total Protein 7.7 6.5 - 8.0 g/dL [facility] Albumin Level 4.2 3.5 - 5.0 g/dL [facility] Alkaline Phosphatase 135(H) 39 - 117 U/L [facility] 08/21/2025 3:14 PM EST 08/21/2025 3:16 PM EST us Generic External Data Provider LAB BLOOD ORDERAB LES Final Result [facility] [address] [place] [phone] * Vascular US upper extremity venous duplex right (08/21/2025 1:32 PM EST) 08/21/2025 1:32 PM EST Narrative [facility] - 08/21/2025 3:41 PM EST [address] [address] Ultrasound Report Signed Patient: Jazmine Max MR#: [id number] : 1965 Acct:[id number] Age/Sex: 59 / F ADM Date: 08/21/25 Loc: HO.US Attending Dr: Calista Alcantara MD Ordering Physician: Calista Alcantara MD Date of Service: 08/21/25 Procedure(s): US venous duplex UE RT Accession Number(s): [id number] cc: Calista Alcantara MD; Catherine Jon MD Reason for Exam: Swelling after fistula for dialysis EXAMINATION: US TRIPLEX UPPER EXTREMITY, RIGHT CLINICAL INFORMATION: Swelling after dialysis COMPARISON: Previous right upper extremity ultrasound July 2024 TECHNIQUE: Color-flow triplex imaging with spectral analysis and compression Doppler was performed on the right upper extremity. FINDINGS: There is thrombus seen in the right internal jugular vein. This was seen on prior exam July 2024 and this may be chronic. The right subclavian vein is patent. The right axillary vein is patent. There is a graft/fistula from the brachial artery to the antecubital or basilic vein. The graft is patent. There is a large complex fluid collection with internal echoes adjacent to the graft suggestive of a hematoma. This measures 4.8 x 1.8 x 2.8 cm. The brachial artery is patent proximal to the fistula. There is hypoechoic material in the brachial artery distal to the fistula anastomosis suggestive of thrombus. The cephalic, brachial and basilic veins are patent. US/US venous duplex UE RT IMPRESSION: Thrombus in the right internal jugular vein. This may be chronic. Recent AV fistula/graft from the brachial artery to the antecubital fossa/basilic vein. This is patent. Large surrounding soft tissue hematoma measuring up to 4.8 x 2.8 cm. Thrombus seen in the brachial artery distal to the fistula anastomosis. Findings were communicated to Dr. Alcantara by the medical technologist generalist at the completion of the exam on 08/21/2025 at 1452 and the patient was instructed to go to the emergency room. Electronically signed by: Marilynn Causey MD 08/21/2025 03:38 PM [facility] Dictated By: Marilynn Causey MD Signed By: <Electronically signed by Marilynn Causey MD in OV> 08/21/25 1538 DD/ 1332 TD/TT: 08/21/25 1445 Casting Chipper: JOSE Procedure Note Donotuseinterpreter, Image - 08/21/[address] [address] Ultrasound Report Signed Patient: Jazmine MaxMR#: [id number] : 1965Acct:[id number] Age/Sex: 59 / FADM Date: 08/21/25 Loc: HO.US Attending Dr: Calista Alcantara MD Ordering Physician: Calista Alcantara MD Date of Service: 08/21/25 Procedure(s): US venous duplex UE RT Accession Number(s): [id number] cc: Calista Alcantara MD; Catherine Jon MD Reason for Exam: Swelling after fistula for dialysis EXAMINATION: US TRIPLEX UPPER EXTREMITY, RIGHT CLINICAL INFORMATION: Swelling after dialysis COMPARISON: Previous right upper extremity ultrasound July 2024 TECHNIQUE: Color-flow triplex imaging with spectral analysis and compression Doppler was performed on the right upper extremity. FINDINGS: There is thrombus seen in the right internal jugular vein. This was seen on prior exam July 2024 and this may be chronic. The right subclavian vein is patent. The right axillary vein is patent. There is a graft/fistula from the brachial artery to the antecubital or basilic vein. The graft is patent. There is a large complex fluid collection with internal echoes adjacent to the graft suggestive of a hematoma. This measures 4.8 x 1.8 x 2.8 cm. The brachial artery is patent proximal to the fistula. There is hypoechoic material in the brachial artery distal to the fistula anastomosis suggestive of thrombus. The cephalic, brachial and basilic veins are patent. US/US venous duplex UE RT IMPRESSION: Thrombus in the right internal jugular vein. This may be chronic. Recent AV fistula/graft from the brachial artery to the antecubital fossa/basilic vein. This is patent. Large surrounding soft tissue hematoma measuring up to 4.8 x 2.8 cm. Thrombus seen in the brachial artery distal to the fistula anastomosis. Findings were communicated to Dr. Alcantara by the medical technologist generalist at the completion of the exam on 08/21/2025 at 1452 and the patient was instructed to go to the emergency room. Electronically signed by: Marilynn Causey MD 08/21/2025 03:38 PM EST RP Dictated By: Marilynn Causey MD Signed By: <Electronically signed by Marilynn Causey MD in OV> 08/21/25 1538 DD/ 1332 TD/TT: 08/21/25 1445 Casting Chipper: JOSE [facility] External Provider CV VASC ULAR PROCEDURES Final Result Performing Organization Address [facility] Co de Phone Number [facility] [address] [place] [phone] * Culture, Urine, Routine (08/17/2025 7:05 PM EST) Only the most recent of2 resultswithin the time period is included. Urine Urine specimen obtained by clean catch procedure / Unknown 08/17/2025 7:05 PM EST 08/17/2025 7:05 PM EST Comment:UACC Narrative [facility] - 08/19/2025 10:30 AM EST Urine Culture Report Result Urine Culture 10,000 to 50,000 cfu/ml Urine Culture Mixed bacterial michael characteristic of Urine Culture urogenital contamination. Specimen Source: Urine clean catch Generic External Data Provider LAB MICROBIOLOGY - GENERAL ORDERABLES Final Result Performing Organization Address [facility] de Phone Number [facility] [address] [place] [phone] * (ABNORMAL) Urinalysis, Complete, with Reflex to Culture (08/17/2025 6:44 PM EST) Only the most recent of2 resultswithin the time period is included. Color Urine Yellow [facility] Appearance Urine Cloudy [facility] PH 6.5 5.0 - 9.0 [facility] Glucose Urine UA 250(A) Negative mg/dL [facility] Urine Blood Large (3+)(A) Negative [facility] Specific [place] - Urine 1.015 1.005 - 1.025 [facility] Urine Protein 300 (3+)(A) Neg-Trace mg/dL [facility] Urine Ketones Negative Negative mg/dL [facility] Nitrite Urine Negative Negative [facility] Leukocyte Esterase Urine Moderate (2+)(A) Negative [facility] RBC Urine >20(A) 0 - 2 /HPF [facility] Urine WBC 21-50(A) 0 - 5 /HPF [facility] Urine Squamous Epithelial Cell 11-20 0 - 2 /HPF [facility] Urine Bacteria 3+ None Seen [facility] Hyaline Casts, Urine 0-2 0 - 2 /LPF [facility] 08/17/2025 6:44 PM EST 08/17/2025 6:50 PM EST Narrative [facility] - 08/17/2025 7:05 PM EST Urine, Clean Catch Generic External Data Provider LAB URINE ORDERAB LES Final Result Performing Organization Address City/State/[facility] Co de Phone Number [facility] [address] [place] [phone] * (ABNORMAL) POCT Hgb A1c (08/02/2025 2:03 [...] Body Computed Tomogra phy us Historical Provider IMG CT PROCEDURES Final R esult * (ABNORMAL) Lipid Panel, Standard (03/03/2024 1:43 PM EDT) Triglycerides 201(H) <150 mg/dL [facility] Comment:Desirable Triglyceri de: less than 150 mg/dLBorderline High Triglyceride 150-199 mg/dLHigh Triglyceride: 200-499 mg/dLVery High Triglyceride: greater than or equal to 5OO mg/dL Cholesterol 146 <200 mg/dL [facility] Comment:Desirable Cholestero l: less than 200 mg/dLBorderline High Cholesterol: 200-239 mg/dLHigh Cholesterol: greater than 239 mg/dL LDL Cholesterol Calculated 69 <100 mg/dL [facility] Comment:Desirable LDL: less than 100 mg/dLNear Optimal/Above Optimal LDL: 110- 129 mg/dLBorderline High LDL: 130-159 mg/dLHigh LDL: 160-189 mg/dLVery High LDL: greater than or equal to 190 mg/dL HDL Cholesterol 37(L) >40 mg/dL [facility] Comment:Desirable HDL: great er than 40 mg/dL Note: This HDL assay may give artificially low results in patients with liver disease. Blood Venous blood specimen / Unknown 03/03/2024 1:43 PM EDT 03/03/2024 3:58 PM EDT Aby Vazquez MD LAB BLOOD ORDERABLES Final Resul t [facility] [address] [facility] [place] [address] [phone] * BI Mammogram Screening Tomosynthesis Bilateral (02/25/2024 3:03 PM EDT) Anatomical Region Laterality Modality Breast Bilateral Mammography 02/25/2024 3:03 PM EDT Narrative 03/21/2024 4:41 PM EDT [facility] [address] [place] [address] Mammography Report Signed Patient: Jazmine Max MR#: [id number] : 1965 Acct:[id number] Age/Sex: 58 / F ADM Date: 02/25/24 Loc: HO.MAMMO Attending Dr: Anne Talamantes DO Ordering Physician: Anne Talamantes DO Results: 1N egative Date of Service: 02/25/24 Follow Up: 1 Year From Orig inal Mammogram Procedure(s): MM tomosynthesis screening BI Accession Number(s): [id number] cc: Anne Talamantes DO EXAMINATION: MM SCREENING [...] in OV> 03/21/24 1637 DD/ 1503 TD/TT: Casting Chipper: Procedure Note Donotuseinterpreter, Image - 03/21/2024 [facility] [address] [place] [address] [place] [address] Mammography Report Signed Patient: Jazmine MaxMR#: [id number] : 1965Acct:[id number] Age/Sex: 58 / FADM Date: 02/25/24 Loc: HO.MAMMO Attending Dr: Anne Talamantes DO Ordering Physician: Anne Talamantesults: 1N egative Date of Service: 02/25/24Follow Up: 1 Year From Orig ina Mammogram Procedure(s): MM tomosynthesis screening BI Accession Number(s): [id number] cc: Anne Talamantes DO EXAMINATION: MM SCREENING [...] in OV> 03/21/24 1637 DD/ 1503 TD/TT: Casting Chipper: us Anne Talamantes DO IMG BI PROCEDURES Final Resu lt * HPV mRNA E6/E7 REFLEX TO HPV 16, 18/45 (11/22/2020 12:00 AM EST) HPV nRNA E6/E7 Not Detected Not Detected [facility] Comment: Methodology: Winch Operator-Mediated Amplification This assay detects E6/E7 viral messenger RNA (mRNA) from 14 high-risk HPV types (16,18,31,33,35,39,45,51,52,56,58,59,66,68). The analytical performance characteristics of this assay have been determined by [employer]. The modifications have not been cleared or approved by the FDA. This assay has been validated pursuant to the CLIA regulations and is used for clinical purposes. For additional information, please refer to http://education.AVA.ai/AEI366s2 (This link if provided for information/ educational purposes only.) 11/22/2020 us Anne Talamantes DO LAB CYTOLOGY ORDERABLES Jolanta l Result [facility] [address] [place] [address], * Hm Colonoscopy (03/08/2019 11:49 AM EDT) [...] 08/20/2025 Patient has chronic kidney disease 08/20/2025 Insurance [facility] Care Teams Grocery Worker Relationship Specialty Start Date End Date Catherine Jon MD [address] [facility] [place] [address] PCP - General Family Medicine 09/21/24 Kyle Velez, RN [address] [place] [place] [facility] [place] [address] Registered Nurse Family Medicine 08/20/25 Mustapha Fritz 08/20/25 [employer] 07/26/24 Blaire Alcantara MD [facility] [address] [facility] [address] [place] [address] Medical Oncologist Hematology and Oncology 09/21/24 Jung Maxwell MD [facility] [address] [place] [address] Dr [address] [place] [address] Consulting Physician Urology 09/21/24 Bryant Ferro DO Consulting Physician Cardiology 09/21/24 [facility] [address] [place] [address] Consulting Physician Nephrology 09/21/24 Denilson Fay MD, PhD [facility] [address] [place], [place] [phone] Consulting Physician Ophthalmology 09/21/24 [employer], RUBBER FLAP CUTTER Agency [address] [place], [place] [phone] Personal Care Services 09/21/24
--- OUTSIDE RECORDS SUMMARY | 2025-08-21 16:30 | XMS_ITS | Encounter Summary ---
Author Organization [employer] Address [address] [facility] 7t [place] [address] Care Team Providers Care Supervisor Epoxy Fabrication Name Role Phone Catherine Jon MD Primary Care Provider [phone] Kyle Velez RN Unavailable [phone] Isha Do Unavailable Kyle Velez RN Unavailable [phone] Mustapha Fritz Unavailable Encounter Details Date Type Department Care Team (Late st Contact Info) Description 03/02/2023 Orders Only [facility] MED & PEDS [address] [place] [address] Anne Gama LPN Social History Tobacco Use [...] on filedocumented in this encounter Care Teams Supervisor Epoxy Fabrication Relationship Specialty Start Date End Date Catherine Jon MD 505 [place] [address] PCP - General Family Medicine 09/21/24 Kyle Velez, RN 505 [place] [address] Registered Nurse Family Medicine 06/15/25 08/10/25 Isha Do 06/15/25 08/10/25 Kyle Velez, RN [address] [place] [address] Registered Nurse Family Medicine 08/20/25 Mustapha Fritz 08[facility]20[facility]25 [facility] Blaire Alcantara MD [facility] [address] [facility] [address] [place] [address] Medical Oncologist Hematology and Oncology 09/21/24 Jung Maxwell MD [facility] [address] [place] [address] [place] [address] Consulting Physician Urology 09/21/24 Bryant Ferro DO Consulting Physician Cardiology 09/21/24 [facility] [address] [place] [address] Consulting Physician Nephrology 09/21/24 Denilson Fay MD, PhD [facility] [address] [place], [place] [phone] Consulting Physician Ophthalmology 09/21/24 [employer], CHIEF COMPLIANCE OFFICER Agency [address] [place] [address] Personal Care Services 09/21/24 documented as of this encounter
--- OUTSIDE RECORDS SUMMARY | 2025-08-21 16:30 | XMS_ITS | Clinical Summary ---
Author Organization [facility] Address [address] [place] [address] Phone Care Team Providers Care Cigar Making Machine Supervisor Name Role Phone Anne Talamantes DO Primary [...] 9.2 8.7 - 10.7 mg/dL eGFR Non-Afr Iranian 14 Total Bilirubin 0.4 MG/DL Bilirubin Direct [...] Insurance Medicaid [place] Care Teams Cigar Making Machine Supervisor Relationship Specialty Start Date End Date Anne Talamantes DO 230 [place] [address] PCP - General 10/07/20
--- OUTSIDE RECORDS SUMMARY | 2025-08-21 16:30 | XMS_ITS | Patient Health Record ---
Author Organization Estuardo Kenyon III, MD Address [address] [place] [address] Care Team Providers Care Family Law Paralegal Name Role Phone YENI SALGUERO Primary Care Provider Dr. Estuardo Kenyon III [facility] Allergies Allergen (clinical drug ingredient) Drug/Non Drug [...] Problem Status W/U Status Risk Notes Problem 868018614 Anemia in chronic kidney disease (D63.1) Active confirmed Her blood pressure is currently 139/69 and no change in her regimen as needed. 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 Problem 367857456 terminal gauger (current) use of insulin (Z79.4) Active confirmed Problem 843466130 Pacemaker (Z95.0) Active confirmed Problem 580562628 History of adenomatous polyp of colon (Z86.010) Active confirmed Problem 84952319 Hypertension, unspecified type (I10) Active confirmed Problem 02395619 Chronic renal failure, stage 4 (severe) (N18.4) Active confirmed We have mad e the white sidewall tire buffer aware of the situation. The fistula in the left upper lung appears to be maturing well. The dialysis catheter and right upper chest wall is intact and seems to function normally. Problem 766566265 Malignant neoplasm of urinary bladder, unspecified site (C67.9) Active confirmed The tumor appears to be widespread. We will need to review the images with the radiologist to clarify the nature of the mass in or I can tellnear the right kidney. Problem 31897937 Cardiomyopathy, unspecified type (I42.9) Active confirmed Problem 346896864270695154 Progressive macular hypomelanosis (L81.6) Active confirmed Problem 545740776 AVF (arteriovenous fistula) (I77.0) Active confirmed Problem 04470880 End-stage renal disease (N18.6) Active confirmed Problem 08741741 Type 2 diabetes mellitus with diabetic nephropathy, unspecified whether rodent exterminator insulin use (E11.21) Active confirmed Diabetes currently seems well controlled. Plan Of Treatment No Information Insurance Providers Payer Name Payer Address Payer Phone Subscriber Number Group Number Insured Name Patient Relationship to Insured Coverage Start Date Coverage End Date [place] [address] KASSANDRA GONZALEZ [id number] Jazmine Max Self - patient is the insured
--- OUTSIDE RECORDS SUMMARY | 2025-08-21 16:30 | XMS_ITS | Encounter Summary ---
Author Organization [employer] Address [address] [facility] 7t [place] [address] Care Team Providers Care Harp Repairer Name Role Phone Catherine Jon MD Primary Care Provider [phone] Kyle Velez RN Unavailable [phone] Isha Do Unavailable Kyle Velez RN Unavailable [phone] Mustapha Fritz Unavailable Reason for Visit * Reason Onset Date Comments Hospital Follow-up 04/11/2024 Encounter Details Date Type Department Care Team (Late st Contact Info) Description 04/11/2024 Telephone [facility] MEDICINE 230 [place], [place] [phone] Anne Talamantes DO 230 [place], [place] [phone] Hospital Follow-up Social History Tobacco Use Types [...] from pt requesting a HDF appt. Hospital: [facility] Date of admission: 04/07 Discharge date: 04/11 Diagnosed: Kidney Failure documented in this encounter Plan of Treatment Not on file documented as of this encounter Visit Diagnoses Not on filedocumented in this encounter Care Teams Harp Repairer Relationship Specialty Start Date End Date Catherine Jon MD 505 [place] [address] PCP - General Family Medicine 09/21/24 Kyle Velez, RN 505 [place] [address] Registered Nurse Family Medicine 06/15/25 08/10/25 Isha Do 06/15/25 08/10/25 Kyle Velez, TYESHA 505 [place] [address] Registered Nurse Family Medicine 08/20/25 Mustapha Fritz 08/20/25 [facility] 07/26/24 Blaire Alcantara MD [facility] [address] [facility] [address] [place] [address] Medical Oncologist Hematology and Oncology 09/21/24 Jung Maxwell MD [facility] [address] [place] [address] Consulting Physician Urology 09/21/24 Bryant Ferro DO Consulting Physician Cardiology 09/21/24 [facility] [address] [place] [address] Consulting Physician Nephrology 09/21/24 Denilson Fay MD, PhD [facility] 180 [place], [place] [phone] Consulting Physician Ophthalmology 09/21/24 [employer], OPERATIONS SYSTEMS SPECIALIST Agency 25 [place], [place] [phone] Personal Care Services 09/21/24 documented as of this encounter
--- OUTSIDE RECORDS SUMMARY | 2025-08-21 16:30 | XMS_ITS | Encounter Summary ---
Author Organization [employer] Address [address] [facility] 7t [place] [address] Care Team Providers Care Food Safety Specialist Name Role Phone Catherine Jon MD Primary Care Provider [phone] Kyle Velez RN Unavailable [phone] Isha Do Unavailable Kyle Velez RN Unavailable [phone] Mustapha Fritz Unavailable Encounter Details Date Type Department Care Team (Late st Contact Info) Description 01/21/2023 Orders Only [facility] CH[facility] MED & PEDS 505 [place] [address] Anne Gama LPN Social History Tobacco Use [...] on filedocumented in this encounter Care Teams Food Safety Specialist Relationship Specialty Start Date End Date Catherine Jon MD 505 [place] [address] PCP - General Family Medicine 09/21/24 Kyle Velez, RN 505 [place] [address] Registered Nurse Family Medicine 06/15/25 08/10/25 Isha Do 06/15/25 08/10/25 Kyle Velez, RN [address] [place] [address] Registered Nurse Family Medicine 08/20/25 Mustapha Fritz 08/20/25 [facility] Blaire Alcantara MD [facility] [address] [facility] [address] [place] [address] Medical Oncologist Hematology and Oncology 09/21/24 Jung Maxwell MD [facility] [address] [place] [address] [place] [address] Consulting Physician Urology 09/21/24 Bryant Ferro DO Consulting Physician Cardiology 09/21/24 [facility] [address] [place] [address] Consulting Physician Nephrology 09/21/24 Denilson Fay MD, PhD [facility] 180 [place], [place] [phone] Consulting Physician Ophthalmology 09/21/24 [employer], ENERGY TRADER Agency [address] [place] [address] Personal Care Services 09/21/24 documented as of this encounter
--- OUTSIDE RECORDS SUMMARY | 2025-08-21 16:30 | XMS_ITS | Encounter Summary ---
Author Organization [employer] Address [address] [facility] 7t [place] [address] Care Team Providers Care Electrician'S Assistant Name Role Phone Catherine Jon MD Primary Care Provider [phone] Kyle Velez RN Unavailable [phone] Isha Do Unavailable Kyle Velez RN Unavailable [phone] Mustapha Fritz Unavailable Reason for Visit * Reason Comments Med Refill Encounter Details Date Type Department Care Team (Late st Contact Info) Description 11/08/2024 Refill [facility] MEDICINE 230 [place], [place] [phone] Anne Talamantes DO 230 [place], [place] [phone] Social History Tobacco Use Types Packs/Day Years [...] on filedocumented in this encounter Care Teams Electrician'S Assistant Relationship Specialty Start Date End Date Catherine Jon MD 505 [place] [address] PCP - General Family Medicine 09/21/24 Kyle Velez RN 505 [place] [address] Registered Nurse Family Medicine 06/15/25 08/10/25 Isha Do 06/15/25 08/10/25 Kyle Velez RN 505 [place] [address] Registered Nurse Family Medicine 08/20/25 Mustapha Fritz 08/20/25 [facility] 07/26/24 Blaire Alcantara MD [facility] [address] [place] [address] [address] [place] [address] Medical Oncologist Hematology and Oncology 09/21/24 Jung Maxwell MD [facility] [address] [place] [address] [place] [address] Consulting Physician Urology 09/21/24 Bryant Ferro DO Consulting Physician Cardiology 09/21/24 [facility] [address] [place] [address] Consulting Physician Nephrology 09/21/24 Denilson Fay MD, PhD [facility] [place] [address] [place] [address] Consulting Physician Ophthalmology 09/21/24 [employer], AUDIO VISUAL COLLECTIONS COORDINATOR Agency [address] [place] [address] Personal Care Services 09/21/24 documented as of this encounter
--- OUTSIDE RECORDS SUMMARY | 2025-08-21 16:30 | XMS_ITS | Encounter Summary ---
Author Organization [employer] Address [address] [facility] 7t [place] [address] Care Team Providers Care Insolvency Consultant Name Role Phone Catherine Jon MD Primary Care Provider [phone] Kyle Velez RN Unavailable [phone] Isha Do Unavailable Kyle Velez RN Unavailable [phone] Mustapha Fritz Unavailable Reason for Visit * Reason Comments Med Refill Encounter Details Date Type Department Care Team (Late st Contact Info) Description 09/18/2024 Refill [facility] MEDICINE 230 [place], [place] [phone] Anne Talamantes DO 230 [place], [place] [phone] Social History Tobacco Use Types Packs/Day Years [...] on filedocumented in this encounter Care Teams Insolvency Consultant Relationship Specialty Start Date End Date Catherine Jon MD 505 [place] [address] PCP - General Family Medicine 09/21/24 Kyle Velez RN 505 [place] [address] Registered Nurse Family Medicine 06/15/25 08/10/25 Isha Do 06/15/25 08/10/25 Kyle Velez RN 505 [place] [address] Registered Nurse Family Medicine 08/20/25 Mustapha Fritz 08/20/25 [facility] 07/26/24 Blaire Alcantara MD [facility] Center [address] [place] [address] [address] [place] [address] Medical Oncologist Hematology and Oncology 09/21/24 Jung Maxwell MD [facility]rology [facility] [address] [place] [address] [place] [address] Consulting Physician Urology 09/21/24 Bryant Ferro DO Consulting Physician Cardiology 09/21/24 [facility] [address] [place] [address] Consulting Physician Nephrology 09/21/24 Denilson Fay MD, PhD [facility] 180 [place] [address] Consulting Physician Ophthalmology 09/21/24 [employer], CHIEF JUVENILE PROBATION OFFICER Agency [address] [place] [address] Personal Care Services 09/21/24 documented as of this encounter
--- OUTSIDE RECORDS SUMMARY | 2025-08-21 16:30 | XMS_ITS | Encounter Summary ---
Author Organization [employer] Address [address] [facility] 7t [place] [address] Care Team Providers Care Lands Resource Manager Name Role Phone Catherine Jon MD Primary Care Provider [phone] Kyle Velez RN Unavailable [phone] Isha Do Unavailable Kyle Velez RN Unavailable [phone] Mustapha Fritz Unavailable Reason for Visit * Reason Onset Date Comments Call Back Request 11/23/2024 Encounter Details Date Type Department Care Team (Late st Contact Info) Description 11/23/2024 Telephone [facility] MEDICINE 230 [place] [address] Catherine Jon MD [address] [place], [place] [phone] Call Back Request Social History Tobacco Use [...] Miscellaneous Notes * Telephone Encounter - Manjeet Longorianandez - 11/23/2024 1:38 PM EST TC from pt requesting a call back from [facility]. Contact pt at [phone] documented in this encounter Plan of Treatment Not on file documented as of this encounter Visit Diagnoses Not on filedocumented in this encounter Care Teams Lands Resource Manager Relationship Specialty Start Date End Date Catherine Jon MD 505 [place] [address] PCP - General Family Medicine 09/21/24 Kyle Velez, RN 505 [place] [address] Registered Nurse Family Medicine 06/15/25 08/10/25 Isha Do 06/15/25 08/10/25 Kyle Velez, TYESHA [address] [place] [address] Registered Nurse Family Medicine 08/20/25 Mustapha Fritz 08/20/25 [facility] 07/26/24 Blaire Alcantara MD [facility] On[facility] Center [address] [facility] [address] [place] [address] Medical Oncologist Hematology and Oncology 09/21/24 Jung Maxwell MD [facility]rology Center [address] [place] [address] [place] [address] Consulting Physician Urology 09/21/24 Bryant Ferro DO Consulting Physician Cardiology 09/21/24 [facility] [address] [place] [address] Consulting Physician Nephrology 09/21/24 Denilson Fay MD, PhD [facility] 180 [place] [address] Consulting Physician Ophthalmology 09/21/24 [employer], CLINICAL AUDITOR Agency [address] [place] [address] Personal Care Services 09/21/24 documented as of this encounter
--- OUTSIDE RECORDS SUMMARY | 2025-08-21 16:30 | XMS_ITS | Encounter Summary ---
Author Organization [employer] Address [address] [facility] 7t [place] [address] Care Team Providers Care Radio Communication Coordinator Name Role Phone Catherine Jon MD Primary Care Provider [phone] Kyle Velez RN Unavailable [phone] Isha Do Unavailable Kyle Velez RN Unavailable [phone] Mustapha Fritz Unavailable Encounter Details Date Type Department Care Team (Late st Contact Info) Description 01/06/2024 Orders Only [facility] MEDICINE [address] [place], [place] [phone] Provider, MD Karoline Social History Tobacco Use [...] on filedocumented in this encounter Care Teams Radio Communication Coordinator Relationship Specialty Start Date End Date Catherine Jon MD [address] [facility] [place] [address] PCP - General Family Medicine 09/21/24 Kyle Velez, RN [address] [place] [address] Registered Nurse Family Medicine 06/15/25 08/10/25 Isha Do 06/15/25 08/10/25 Kyle Velez, RN [address] [place] [address] Registered Nurse Family Medicine 08/20/25 Mustapha Fritz 08/20/25 [facility] 07/26/24 Blaire Alcantara MD [facility] [address] [place] [address] [address] [place] [address] Medical Oncologist Hematology and Oncology 09/21/24 Jung Maxwell MD [facility] [address] [place] [address] Consulting Physician Urology 09/21/24 Bryant Ferro DO Consulting Physician Cardiology 09/21/24 [facility] [address] [place] [address] Consulting Physician Nephrology 09/21/24 Denilson Fay MD, PhD [facility] [address] [place], [place] [phone] Consulting Physician Ophthalmology 09/21/24 [employer], DIRECTOR OF RESOURCE DEVELOPMENT Agency [address] [place], [place] [phone] Personal Care Services 09/21/24 documented as of this encounter
--- OUTSIDE RECORDS SUMMARY | 2025-08-21 16:30 | XMS_ITS | Encounter Summary ---
Author Organization [employer] Address 75 [facility] 7t [place] [address] Care Team Providers Care Nurse Advocate Name Role Phone Catherine Jon MD Primary Care Provider [phone] Kyle Velez RN Unavailable [phone] Isha Do Unavailable Kyle Velez RN Unavailable [phone] Mustapha Fritz Unavailable Reason for Visit * Reason Comments Med Refill Encounter Details Date Type Department Care Team ([facility] st Contact Info) Description 02/26/2023 Refill [facility] MEDICINE [address] [place], [place] [phone] Claribel Dalton MD [address] [place], [place] [phone] Type 2 diabetes mellitus with hyperglycemia, unspecified whether long-term insulin use ([facility]/HCC) Social History Tobacco Use Types Packs/Day Years [...] 2 diabetes mellitus with hyperglycemia, unspecified whether vermin exterminator insulin use (HCC) documented in this encounter Care Teams Nurse Advocate Relationship Specialty Start Date End Date Catherine Jon MD [address] [place] [address] PCP - General Family Medicine 09/21/24 Kyle Velez, RN [address] [place] [address] Registered Nurse Family Medicine 06/15/25 08/10/25 Isha Do 06/15/25 08/10/25 Kyle Velez, RN 505 [facility] [place] [address] Registered Nurse Family Medicine 08/20/25 Mustapha Fritz 08/20/25 [facility] 07/26/24 Blaire Alcantara MD [facility] Oncology [facility] [address] [facility] [address] [place] [address] Medical Oncologist Hematology and Oncology 09/21/24 Jung Maxwell MD [facility] Urology Center [address] [place] [address] Consulting Physician Urology 09/21/24 Bryant Ferro DO Consulting Physician Cardiology 09/21/24 [facility] [address] [place] [address] Consulting Physician Nephrology 09/21/24 Denilson Fay MD, PhD [facility] [address] [place], [place] [phone] Consulting Physician Ophthalmology 09/21/24 [employer], MEAT BUTCHER Agency [address] [place], [place] [phone] Personal Care Services 09/21/24 documented as of this encounter
--- OUTSIDE RECORDS SUMMARY | 2025-08-21 16:30 | XMS_ITS | Encounter Summary ---
Author Organization [employer] Address 75 [facility] 7t [place] [address] Care Team Providers Care Population Health Manager Name Role Phone Catherine Jon MD Primary Care Provider [phone] yKle Velez RN Unavailable Mustapha Fritz Unavailable Reason for Visit * Reason Comments Care Coordination C3CM/CHW Mustapha ocampo, Chart review Encounter Details Date Type Department Care Team (Latest Contact Info) Description 08/20/2025 Patient Outreach [facility] MEDICINE [address] [place] [address] Catherine Jon MD [address] [place], [place] [phone] Care Coordination (C3CM/GABRIELW Mustapha Fritz, Chart review ) Social History Tobacco Use Types Packs/Day Years [...] as of this encounter Progress Notes * Mustapha Fritz - 08/20/2025 1:43 PM EST LUCINA Fritz reviewed chart review completed by INDU Velez RN: INDU Velez RN, performed chart review, in anticipation of initial assessment with patient, as patient has stratified for C3 Adult Complex Care [...] peripheral polyneuropathy, decreased pedal pulses. Specialists include [facility] PT, [facility] cardiology, Vascular surgery, [facility] endocrinology, [facility] general surgery, [facility] oncology/hematology, [facility] urology. ED visits within the last 12 months include [facility] 08/17/25, [facility] [place], [facility] 06/14/25, [facility] 03/22/25. Last appointment in PCP office on [...] blood pressure task No Ana Cristina Haq, FINISH REMOVER Weekly blood pressure task Care Plan Weekly blood pressure task No Fabrice Haqga, FINISH REMOVER Patient has diabetic eye disease Care Plan Patient has diabetic eye disease No HaqFabricega, FINISH REMOVER Patient has diabetic eye disease Care Plan Patient has diabetic eye disease No HaqFabricega, FINISH REMOVER Patient has diabetic eye disease Care Plan Patient has diabetic eye disease No Fabrice Haqga, FINISH REMOVER Patient has chronic kidney disease Care Plan Patient has chronic kidney disease No Ana Cristina Haq, FINISH REMOVER Patient has chronic kidney disease Care Plan Patient has chronic kidney disease No Ana Cristina Haq LPN Patient has chronic kidney disease Care Plan [...] documented as of this encounter Care Teams Population Health Manager Relationship Specialty Start Date End Date Catherine Jon MD 505 [place] [address] PCP - General Family Medicine 09/21/24 Kyle Velez, TYESHA [address] [place] [address] Registered Nurse Family Medicine 08/20/25 Mustapha Fritz 08/20/25 [facility] 07/26/24 Blaire Alcantara MD [facility] Center [address] [facility] [address] [place] [address] Medical Oncologist Hematology and Oncology 09/21/24 Jung Maxwell MD [facility] [address] [place] [address] [place] [address] Consulting Physician Urology 09/21/24 Bryant Frero DO Consulting Physician Cardiology 09/21/24 [facility] [address] [place] [address] Consulting Physician Nephrology 09/21/24 Denilson Fay MD, PhD [facility] [address] [place] [address] Consulting Physician Ophthalmology 09/21/24 [employer], REGISTRATION OFFICER Agency [address] [place] [address] Personal Care Services 09/21/24 documented as of this encounter
--- OUTSIDE RECORDS SUMMARY | 2025-08-21 16:30 | XMS_ITS | Encounter Summary ---
Author Organization [facility] Address [address] [place] [address] Care Team Providers Care Fleet Service Clerk Name Role Phone Catherine Jon MD Primary Care Provider [phone] Reason for Visit * Reason Onset Date Comments Prior Authorization 07/24/2025 08/07/25 Dr. Freddie Campoverde Encounter Details Date Type Department Care Team (Late st Contact Info) Description 07/24/2025 Telephone General Surgery - [address] [place] [address] Freddie Campoverde MD [address] [place] [phone] Social History Tobacco Use Types Packs/Day Years [...] with Dr. Kingsley Campoverde on 08/07/25 at [facility]. She has [employer] for insurance thru the [facility]. I called and asked them for a [...] documented as of this encounter Care Teams Fleet Service Clerk Relationship Specialty Start Date End Date Catherine Jon MD [address] [place] [address] PCP - General Family Medicine 06/07/25 documented as of this encounter
--- OUTSIDE RECORDS SUMMARY | 2025-08-21 16:30 | XMS_ITS | Clinical Summary ---
Author Organization [facility] Address [address] [place] [phone] Phone Care Team Providers Care Waste Machine Offbearer Name Role Phone Catherine Jon MD Primary Care Provider [phone] Allergies No known active allergies Medications sevelamer [...] problem 08/07/2025 ESRD (end stage renal disease) ([facility] V24, [facility] V28) 07/05/2025 Encounters Date Type Department Care Team Description 08/21/2025 4:08 PM EST Emergency [facility] Emergency [address] [place] [phone] 08/07/2025 7:55 AM EST Anesthesia Event [facility] Main OR [address] [place] [phone] Juan Jimenez MD Sandjo, Hyancinthe, SRNA 08/07/2025 7:30 AM EST - 08/07/2025 10:00 AM EST Surgery [facility] Main OR [address] [place] [phone] Freddie Campoverde MD RIGHT DIALYSIS GRAFT INSERTION [[id number] (CPT )] 08/07/2025 5:33 AM EST - 08/07/2025 12:30 PM EST Hospital Encounter [facility] Main OR [address] [place] [phone] Freddie Campoverde MD Discharge Disposition: Home or Self Care 07/24/2025 Telephone General Surgery [address] [phone] Freddie Campoverde MD 07/05/2025 Telephone General Surgery - [place] [address] [phone] Freddie Campoverde MD 07/04/2025 Telephone General Surgery - [place] [address] [phone] Freddie Campoverde MD 06/20/2025 9:29 AM EDT - 06/20/2025 11:59 PM EDT Hospital Encounter [facility] PET Scan [address] [place] [phone] Malignant neoplasm of bladder, unspecified ([facility] V24, [facility] V28) Discharge Disposition: Home or Self Care 06/07/2025 1:30 PM EDT Consult [facility] [address] [phone] Freddie Campoverde MD End stage renal disease ([facility] V24, [facility] V28) from Last 3 Months Surgical History Surgery Date Site/Laterality Comments OTHER SURGICAL HISTORY Left ARM SURGERT FX ANKLE FRACTURE SURGERY 09/27/2011 - 09/26/2012 PACEMAKER IMPLANT Left AV FISTULA PLACEMENT Left Medical History Medical History Date Comments Fractures Hypertension Diabetes mellitus ([facility] V24, [facility] V28) Chronic kidney disease Cancer ([facility] V24, [facility] V28) BLADDER History of chemotherapy BLADDER CA Dialysis patient ([facility] V24) E XSISTING PERMACATH Hyperlipidemia PVD (peripheral vascular disease) ([facility] V24) Social History Tobacco Use Types Packs/Day [...] 09/21/2024 Diabetes: Annual GFR (Glomerular Filtration Rate) 08/17/2026 08/17/2025, 08/07/2025, 08/08/2024, Additional history exists Hypertension/CHF/CAD Annual BMP Blood Test 08/17/2026 08/17/2025, 08/07/2025, 08/08/2024, Additional history exists Cholesterol Screening (Lipid Panel) [...] Campoverde MD Medical Devices Implanted Type Area Money Market Dealer Device Identifier Shelf Expiration Date Model / Serial / Lot Hemostat Absorb Surgicel Nu-Knit 3x4in - Sna - [id number] Implanted:Qty: 1 on 08/07/2025 by Freddie Campoverde MD at [facility] Hemostasis Right: Jose Daniel [employer] [id number] 02/24/2030 1943S / NA / [id number] Graft Vasc Propaten 4-7mm 45cm - [id number] - [id number] Implanted:Qty: 1 on 08/07/2025 by Freddie Campoverde MD at [facility] Vascular Grafts Right: Jose Daniel [employer] 01/27/2028 [id number] / [id number] / N/A Procedures Procedure Name Priority Date/Time Associated Diagnosis Comments POCT GLUCOSE BLOOD Routine 08/07/2025 11:27 AM EST OXYGEN THERAPY, ADULT Routine 08/07/2025 10:08 AM EST TH AN LMA(NO CHARGE) Routine 08/07/2025 8:16 AM EST IA CREATION AV FISTULA OTHER THAN DIRECT AV [...] - 100 mg/dL 08/07/2025 11:28 AM EST [facility] Blood Capillary blood specimen / Unknown 08/07/2025 11:27 AM EST 08/07/2025 11:29 AM EST us Freddie Campoverde MD LAB POINT OF CARE TEST DOCKED DEVICE UNSOLICITED RESULTS Final Result [facility] [address] [place] [address], * TH AN LMA(NO CHARGE) (08/07/2025 8:16 AM EST) Jj GarciadenizMYLES seaman - 08/07/2025 8:16 AM EST Vern LeggettMYLES 08/07/2025 8:20 AM General Information and Staff Patient location during procedure: OR Anesthesiologist: Juan Jimenez MD Resident/MANGLE FEEDER: Yash Johnson CRNA Other anesthesia staff: MYLES [...] SUPRACLAVICULAR (NO CHARGE) (08/07/2025 7:37 AM EST) Narrative Juan Jimenez MD - 08/07/2025 7:37 AM EST Juan [...] supine Prep: ChloraPrep Patient monitoring: heart rate, log hooker and continuous pulse ox Block type: supraclavicular [...] auto differential (08/07/2025 6:13 AM EST) Pathologist [facility] WBC 6.8 4.8 - 10.8 K/mcL LAB HEMETOLOGY METHOD 08/07/2025 7:22 AM [facility] RBC 3.30(L) 3.80 - 4.80 M/mcL LAB HEMETOLOGY METHOD 08/07/2025 7:22 AM [facility] Hemoglobin 10.0(L) 11.5 - 16.0 g/dL LAB HEMETOLOGY METHOD 08/07/2025 7:22 AM [facility] Hematocrit 31.2(L) 35.0 - 47.0 % LAB HEMETOLOGY METHOD 08/07/2025 7:22 AM [facility] MCV 93.7 79.0 - 98.0 FL LAB HEMETOLOGY METHOD 08/07/2025 7:22 AM [facility] MCH 30.0 27.0 - 32.0 pcg LAB HEMETOLOGY METHOD 08/07/2025 7:22 AM [facility] MCHC 32.1 32.0 - 37.0 g/dL LAB HEMETOLOGY METHOD 08/07/2025 7:22 AM [facility] RDW 15.5(H) 11.0 - 15.0 % LAB HEMETOLOGY METHOD 08/07/2025 7:22 AM [facility] Platelets 171 130 - 400 K/mcL LAB HEMETOLOGY METHOD 08/07/2025 7:22 AM [facility] MPV 10.7 7.0 - 11.0 FL LAB HEMETOLOGY METHOD 08/07/2025 7:22 AM [facility] NRBC 0.0 <1.0 % LAB HEMETOLOGY METHOD 08/07/2025 7:22 AM [facility] NRBC Absolute 0.00 <0.10 K/mcL LAB HEMETOLOGY METHOD 08/07/2025 7:22 AM [facility] Neutrophils Relative 61.6 % LAB HEMETOLOGY METHOD 08/07/2025 7:22 AM [facility] Lymphocytes Relative 19.2 % LAB HEMETOLOGY METHOD 08/07/2025 7:22 AM [facility] Monocytes Relative 11.1 % LAB HEMETOLOGY METHOD 08/07/2025 7:22 AM [facility] Eosinophils Relative 7.0 % LAB HEMETOLOGY METHOD 08/07/2025 7:22 AM [facility] Basophils Relative 0.7 % LAB HEMETOLOGY METHOD 08/07/2025 7:22 AM [facility] Immature Granulocytes Relative 0.4 % LAB HEMETOLOGY METHOD 08/07/2025 7:22 AM [facility] Neutrophils Absolute 4.19 1.50 - 7.00 K/mcL LAB HEMETOLOGY METHOD 08/07/2025 7:22 AM [facility] Lymphocytes Absolute 1.31 1.00 - 5.00 K/mcL LAB HEMETOLOGY METHOD 08/07/2025 7:22 AM [facility] Monocytes Absolute 0.76 0.20 - 1.00 K/mcL LAB HEMETOLOGY METHOD 08/07/2025 7:22 AM [facility] Eosinophils Absolute 0.48 0.00 - 0.50 K/mcL LAB HEMETOLOGY METHOD 08/07/2025 7:22 AM EST [facility] Basophils Absolute 0.05 0.00 - 0.20 K/[facility] LAB HEMETOLOGY METHOD 08/07/2025 7:22 AM [facility] Immature Granulocytes Absolute 0.03 0.00 - 0.03 K/[facility] LAB HEMETOLOGY METHOD 08/07/2025 7:22 AM EST [facility] Blood Venous blood specimen / Unknown Venipuncture / Unknown 08/07/2025 6:13 AM EST 08/07/2025 7:16 AM EST Freddie Campoverde MD LAB BLOOD ORDERABLES Final Result [facility] [address] [place] [address], * (ABNORMAL) Basic metabolic panel (08/07/2025 6:13 AM EST) Sodium 138 133 - 145 mmol/L LAB CHEMISTRY METHOD 08/07/2025 8:02 AM [facility] Potassium 4.7 3.5 - 5.5 mmol/L LAB CHEMISTRY METHOD 08/07/2025 8:02 AM [facility] Comment:Hemolysis present Chloride 103 96 - 110 mmol/L LAB CHEMISTRY METHOD 08/07/2025 8:02 AM [facility] CO2 30 21 - 32 mmol/L LAB CHEMISTRY METHOD 08/07/2025 8:02 AM [facility] Anion Gap 5 3 - 11 LAB CHEMISTRY METHOD 08/07/2025 8:02 AM [facility] Glucose 155(H) 70 - 100 mg/dL LAB CHEMISTRY METHOD 08/07/2025 8:02 AM [facility] BUN 35(H) 5 - 25 mg/dL LAB CHEMISTRY METHOD 08/07/2025 8:02 AM EST [facility] Creatinine 3.91(H) 0.50 - 1.10 mg/dL LAB CHEMISTRY METHOD 08/07/2025 8:02 AM [facility] eGFR 13(L) >=60 mL/min/1. 73m2 LAB CHEMISTRY METHOD 08/07/2025 8:02 AM [facility] Comment:Calculation based on the Chronic Kidney Disease Epidemiology Collaboration (CKD-EPI) equation refit without adjustment for race. BUN/Creatinine Ratio 9.0 LAB CHEMISTRY METHOD 08/07/2025 8:02 AM [facility] Calcium 8.9 8.5 - 10.5 mg/dL LAB CHEMISTRY METHOD 08/07/2025 8:02 AM [facility] Blood Venous blood specimen / Unknown Venipuncture / Unknown 08/07/2025 6:13 AM EST 08/07/2025 7:16 AM EST us Freddie Campoverde MD LAB BLOOD ORDERABLES Final Result [facility] [address] [place] [address], * PET CT Skull to Mid Thigh [...] Signed Date: 06/20/2025 15:16 ET Workstation ID: [id number] Transcribed By: Self Edit Transcribed Date: 06/20/2025 [...] Signed Date: 06/20/2025 15:16 ET Workstation ID: [id number] Transcribed By: Self Edit Transcribed Date: 06/20/2025 15:08 ET us Calista Alcantara MD IMG NM PROCEDURES Final [...] currently active code status orders. Care Teams Waste Machine Offbearer Relationship Specialty Start Date End Date Catherine Jon MD [address] [place] [address] PCP - General Family Medicine 06/07/25
--- OUTSIDE RECORDS SUMMARY | 2025-08-21 16:30 | XMS_ITS | Encounter Summary ---
Author Organization [employer] Address 75 [facility] 7t [place] [address] Care Team Providers Care Cardiographer Name Role Phone Catherine Jon MD Primary Care Provider [phone] Kyle Velez RN Unavailable [phone] Mustapha Fritz Unavailable Encounter Details Date Type Department Care Team (Late st Contact Info) Description 08/21/2025 Orders Only GENERIC EXTERNAL DATA [...] Patient has chronic kidney disease No Isha oD Weekly blood pressure task Care Plan Weekly [...] blood pressure task No Haq, Ana Cristina, HOME CONNECT LPN Patient has diabetic eye disease Care Plan Patient has diabetic eye disease No Haq, Ana Cristina, HOME CONNECT LPN Patient has diabetic eye disease Care Plan Patient has diabetic eye disease No Haq, Ana Cristina, HOME CONNECT LPN Patient has diabetic eye disease Care Plan Patient has diabetic eye disease No Haq, Ana Cristina, HOME CONNECT LPN Patient has chronic kidney disease Care Plan Patient has chronic kidney disease No Haq, Ana Cristina, HOME CONNECT LPN Patient has chronic kidney disease Care Plan Patient has chronic kidney disease No Haq, Ana Cristina, HOME CONNECT LPN Patient has chronic kidney disease Care Plan Patient has chronic kidney disease No Haq, Ana Cristina, HOME CONNECT LPN Weekly blood pressure task Care Plan [...] Mustapha Fritz documented as of this encounter Procedures Procedure Name Priority Date/Time Associated Diagnosis Comments CBC WITH AUTO DIFFERENTIAL Routine 08/21/2025 3:14 PM EST APTT Routine 08/21/2025 3:14 PM EST PROTHROMBIN TIME-INR Routine 08/21/2025 3:14 PM EST COMPREHENSIVE METABOLIC PANEL Routine 08/21/2025 3:14 PM EST [facility] US UPPER EXTREMITY VENOUS DUPLEX RIGHT Routine 08/21/2025 1:32 PM EST documented in this encounter Results * Partial Thromboplastin Time, Activated (APTT) (08/21/2025 3:14 PM EST) Partial Thromboplastin Time 31.4 26.7 - 34.1 SEC [facility] 08/21/2025 3:14 PM EST 08/21/2025 3:16 PM EST us Generic External Data Provider LAB BLOOD ORDERAB LES Final Result [facility] [address] [place] [phone] * (ABNORMAL) Comprehensive Metabolic Panel (08/21/2025 3:14 PM EST) Sodium 139 135 - 145 mmol/L [facility] Potassium 4.0 3.3 - 5.1 mmol/L [facility] Chloride 99 96 - 108 mmol/L [facility] Carbon Dioxide 29 22 - 29 mmol/L [facility] Anion Gap 15 12 - 20 [facility] Urea Nitrogen (BUN) 52(H) 9 - 16 mg/dL [facility] Creatinine, Serum 5.80(HH) 0.5 - 1.4 mg/dL [facility] Comment:Critical value for t est(s): CREA Results called to and readback by: EMBER Person calling: NGUYENQ Date: 08/21/25Time: 1537 Creatinine Clr Calc Pharmacy 8.7 [facility] Comment:Provided height and weight: 154.94 cm,64.2 kg.eGFR (calculated from the MDRD study equation) and eCrCl(calculated from the Cockcroft-Gault equation) are based ondifferent parameters and may not yield comparable results.If eCrCl result is absurd, please check patient'sheight/weight. Estimated Glomerular Filt Rate 7 [facility] Comment:Chronic Kidney Disea se: Estimated GFR < 60 mL/min/1.21k4Kbuhsc Kidney Disease: Estimated GFR < 15 mL/min/1.73m2 Glucose 163(H) 60 - 115 mg/dL [facility] Calcium 8.8 8.4 - 10.2 mg/dL [facility] Bilirubin, Total 0.2 0.0 - 1.0 mg/dL [facility] Aspartate Amino Transferase 42(H) 5 - 31 U/L [facility] Alanine Aminotransferase 24 0 - 31 U/L [facility] Total Protein 7.7 6.5 - 8.0 g/dL [facility] Albumin Level 4.2 3.5 - 5.0 g/dL [facility] Alkaline Phosphatase 135(H) 39 - 117 U/L [facility] 08/21/2025 3:14 PM EST 08/21/2025 3:16 PM EST us Generic External Data Provider LAB BLOOD ORDERAB LES Final Result [facility] [address] [place] [phone] * Prothrombin Time-INR (08/21/2025 3:14 PM EST) Prothrombin Time 13.3 11.2 - 13.5 SEC [facility] INTERNATIONAL NORM RATIO 1.1 0.9 - 1.1 [facility] Comment:INTERNATIONAL NORMAL IZED RATIO (INR) [...] Provider LAB BLOOD ORDERAB LES Final Result [facility] [address] [place] [address] [phone] * (ABNORMAL) CBC auto differential (08/21/2025 3:14 PM EST) White Blood Count 8.9 4.8 - 10.8 X10*3/uL [facility] Red Blood Count 3.59(L) 4.20 - 5.50 X10*6/uL [facility] Hemoglobin 11.0(L) 12.0 - 16.0 g/dl [facility] Hematocrit 34.6(L) 37.0 - 47.0 % [facility] Mean Corpuscular Volume 96.4 80.0 - 98.0 fL [facility] Mean Corpuscular Hemoglobin 30.6 27.0 - 33.0 pg [facility] Mean Corpuscular HGB Conc 31.8 31.0 - 35.0 g/dl [facility] Red Cell Distribution Width 15.1 11.0 - 16.0 % [facility] Platelet Count 215 160 - 400 X10*3/uL [facility] Mean Platelet Volume 10.0 9.4 - 12.3 fL [facility] Neutrophils Percent Auto 72.3 45 - 73 % [facility] Imm Gran Pct Auto 0.2 0.0 - 0.4 % [facility] Lymphocytes Percent Auto 18.2(L) 20 - 40 % [facility] Monocytes Percent Auto 5.9 2 - 11 % [facility] Eosinophils Percent Auto 2.8 0 - 4 % [facility] Basophils Percent Auto 0.6 0 - 2 % [facility] NRBC Pct Auto 0.0 0.0 - 0.2 /100WBC [facility] Neutrophils Absolute Auto 6.4 2.0 - 8.3 x10*3/uL [facility] Imm Gran Abs Auto 0.02 0.00 - 0.03 X10*3/uL [facility] Lymphocytes Absolute Auto 1.6 1.2 - 4.9 X10*3/uL [facility] Monocytes Absolute Auto 0.5 0.1 - 1.2 X10*3/uL [facility] Eosinophils Absolute Auto 0.3 0.0 - 0.4 X10*3/uL [facility] Basophils Absolute Auto 0.1 0.0 - 0.2 X10*3/uL [facility] NRBC Abs Auto 0.000 0.0 - 0.012 X10*3/uL [facility] 08/21/2025 3:14 PM EST 08/21/2025 3:16 PM EST us Generic External Data Provider LAB BLOOD ORDERAB LES Final Result Performing Organization Address City/State/[facility] Co de Phone Number [facility] [address] [place] [phone] * Vascular US upper extremity venous duplex right (08/21/2025 1:32 PM EST) 08/21/2025 1:32 PM EST Narrative [facility] - 08/21/2025 3:41 PM EST [address] [address] Ultrasound Report Signed Patient: Jazmine Max MR#: [id number] : 1965 Acct:[id number] Age/Sex: 59 / F ADM Date: 08/21/25 Loc: HO.US Attending Dr: Calista Alcantara MD Ordering Physician: Calista Alcantara MD Date of Service: 08/21/25 Procedure(s): US venous duplex UE RT Accession Number(s): [id number] cc: Calista Alcantara MD; Catherine Jon MD [...] were communicated to Dr. Alcantara by the senior technologist at the completion of the exam on 08/21/2025 at 1452 and the patient was instructed to go to the emergency room. Electronically signed by: Marilynn Causey MD 08/21/2025 03:38 PM [facility] Dictated By: Marilynn Causey MD Signed By: <Electronically signed by Marilynn Causey MD in OV> 08/21/25 1538 DD/ 1332 TD/TT: 08/21/25 1445 Data Specialist: JOSE Procedure Note Donotuseinterpreter, Image - 08/21/[address] [address] Ultrasound Report Signed Patient: Jazmine MaxMR#: [id number] : 1965Acct:[id number] Age/Sex: 59 / FADM Date: 08/21/25 Loc: HO.US Attending Dr: Calista Alcantara MD Ordering Physician: Calista Alcantara MD Date of Service: 08/21/25 Procedure(s): US venous duplex UE RT Accession Number(s): [id number] cc: Calista Alcantara MD; Catherine Jon MD [...] were communicated to Dr. Alcantara by the senior technologist at the completion of the exam on 08/21/2025 at 1452 and the patient was instructed to go to the emergency room. Electronically signed by: Marilynn Causey MD 08/21/2025 03:38 PM [facility] Dictated By: Marilynn Causey MD Signed By: <Electronically signed by Marilynn Causey MD in OV> 08/21/25 1538 DD/ 1332 TD/TT: 08/21/25 1445 Data Specialist: JOSE us [facility] External Provider CV VASC ULAR PROCEDURES Final Result [facility] [address] [place] [address] documented in this encounter Visit Diagnoses Not [...] documented as of this encounter Care Teams Cardiographer Relationship Specialty Start Date End Date Catherine Jon MD [address] [place] [address] PCP - General Family Medicine 09/21/24 Kyle Velez, TYESHA [address] [place] [address] Registered Nurse Family Medicine 08/20/25 Mustapha Fritz 08/20/25 [facility] 07/26/24 Blaire Alcantara MD [facility] [address] [place] [address] [address] [place] [address] Medical Oncologist Hematology and Oncology 09/21/24 Jung Maxwell MD [facility] [address] [place] [address] Consulting Physician Urology 09/21/24 Bryant Ferro DO Consulting Physician Cardiology 09/21/24 [facility] [address] [place] [address] Consulting Physician Nephrology 09/21/24 Denilson Fay MD, PhD [facility] [address] [place] [address] Consulting Physician Ophthalmology 09/21/24 [employer], HOOP PUNCH AND COILER OPERATOR HELPER Agency [address] [place] [address] Personal Care Services 09/21/24 documented as of this encounter
--- OUTSIDE RECORDS SUMMARY | 2025-08-21 16:30 | XMS_ITS | Encounter Summary ---
Author Organization [employer] Address 75 [facility] 7t h Floor [place] [phone] Care Team Providers Care Claims Technician Name Role Phone Catherine Jon MD Primary Care Provider [phone] Kyle Velez RN Unavailable [phone] Isha Do Unavailable Kyle Velez RN Unavailable [phone] Mustapha Fritz Unavailable Encounter Details Date Type Department Care Team (Late st Contact Info) Description 11/23/2022 Orders Only [facility] [address] [place], [place] [phone] Ana Cristina Haq LPN Social History Tobacco [...] on filedocumented in this encounter Care Teams Claims Technician Relationship Specialty Start Date End Date Catherine Jon MD [address] [place] [address] PCP - General Family Medicine 09/21/24 Kyle Velez, RN [address] [place] [address] Registered Nurse Family Medicine 06/15/25 08/10/25 Isha Do 06/15/25 08/10/25 Kyle Velez, RN [address] [place] [address] Registered Nurse Family Medicine 08/20/25 Mustapha Fritz 08/20/25 [facility] Blaire Alcantara MD [facility] [address] [place] [address] [address] [place] [address] Medical Oncologist Hematology and Oncology 09/21/24 Jung Maxwell MD [facility] [address] [place] [address] [place] [address] Consulting Physician Urology 09/21/24 Bryant Ferro DO Consulting Physician Cardiology 09/21/24 [facility] [address] [place] [address] Consulting Physician Nephrology 09/21/24 Denilson Fay MD, PhD [facility] [address] [place] [address] Consulting Physician Ophthalmology 09/21/24 [employer], CRAB BUTCHER Agency [address] [place] [address] Personal Care Services 09/21/24 documented as of this encounter
--- OUTSIDE RECORDS SUMMARY | 2025-08-21 16:30 | XMS_ITS | Encounter Summary ---
Author Organization [employer] Address 75 [facility] 7t [place] [address] Care Team Providers Care Facility Planner Name Role Phone Catherine Jon MD Primary Care Provider [phone] Kyle Velez RN Unavailable [phone] Mustapha Fritz Unavailable Reason for Visit * Reason Comments Care Coordination C3CM/LUCINA ocampo, initial outreach_lvm Encounter Details Date Type Department Care Team (Latest Contact Info) Description 08/20/2025 Patient Outreach [facility] [address] [place] [address] Catherine Jon MD [address] [place], [place] [phone] Care Coordination (C3CM/LUCINA Fritz, initial outreach_lvm) Social History Tobacco Use Types Packs/Day Years [...] Progress Notes * Mustapha Fritz - 08/20/2025 2:10 PM EST CHW Mustapha Fritz, placed outbound call to patient to introduce [facility]. No answer at this time. CHW LVM introducing herself from [facility] CM Department with GABRIELW'patricia, department and direct contact number requesting call back. Will re-attempt to contact within 2 days. and address not confirmed. documented in [...] Weekly blood pressure task No Peng Ng UT Weekly blood pressure task Care Plan Weekly blood pressure task No Peng Ng UT Weekly blood pressure task Care Plan Weekly blood pressure task No Peng Ng UT Patient has diabetic eye disease Care Plan Patient has diabetic eye disease No Peng Ng UT Patient has diabetic eye disease Care Plan Patient has diabetic eye disease No Peng Ng UT Patient has diabetic eye disease Care Plan Patient has diabetic eye disease No Peng Ng UT Patient has chronic kidney disease Care Plan Patient has chronic kidney disease No Peng Ng UT Patient has chronic kidney disease Care Plan Patient has chronic kidney disease No Peng Ng UT Patient has chronic kidney disease Care Plan Patient has chronic kidney disease No Peng Ng UT Weekly blood pressure task Care Plan Weekly [...] blood pressure task No Haq, Ana Cristina, BARREL ROLLER Weekly blood pressure task Care Plan Weekly blood pressure task No Haq, Ana Cristina, BARREL ROLLER Weekly blood pressure task Care Plan Weekly blood pressure task No Haq, Ana Cristina, BARREL ROLLER Patient has diabetic eye disease Care Plan Patient has diabetic eye disease No Haq, Ana Cristina, BARREL ROLLER Patient has diabetic eye disease Care Plan Patient has diabetic eye disease No Haq, Ana Cristina, BARREL ROLLER Patient has diabetic eye disease Care Plan Patient has diabetic eye disease No Haq, Ana Cristina, BARREL ROLLER Patient has chronic kidney disease Care Plan Patient has chronic kidney disease No Haq, Ana Cristina, BARREL ROLLER Patient has chronic kidney disease Care Plan Patient has chronic kidney disease No Haq, Ana Cristina, BARREL ROLLER Patient has chronic kidney disease Care Plan Patient has chronic kidney disease No Haq, Ana Cristina, BARREL ROLLER Weekly blood pressure task Care Plan Weekly [...] documented as of this encounter Care Teams Facility Planner Relationship Specialty Start Date End Date Catherine Jon MD [address] [place] [address] PCP - General Family Medicine 09/21/24 Kyle Velez, TYESHA [address] [place] [address] Registered Nurse Family Medicine 08/20/25 Mustapha Fritz 08/20/25 [facility] 07/26/24 Blaire Alcantara MD [facility] [address] [place] [address] [address] [place] [address] Medical Oncologist Hematology and Oncology 09/21/24 Jung Maxwell MD [facility] [address] [place] [address] [place] [address] Consulting Physician Urology 09/21/24 Bryant Ferro DO Consulting Physician Cardiology 09/21/24 [facility] [address] [place] [phone] Consulting Physician Nephrology 09/21/24 Denilson Fay MD, PhD [facility] [address] [place] [address] Consulting Physician Ophthalmology 09/21/24 [employer], ELECTRONIC TECH Agency [address] [place] [address] Personal Care Services 09/21/24 documented as of this encounter
--- OUTSIDE RECORDS SUMMARY | 2025-08-21 16:31 | XMS_ITS | Encounter Summary ---
Author Organization [employer] Address 75 [facility] 7t [place] [address] Care Team Providers Care Distribution Center Manager Name Role Phone Catherine Jon MD Primary Care Provider [phone] Kyle Velez RN Unavailable [phone] Isha Do Unavailable Kyle Velez RN Unavailable [phone] Mustapha Fritz Unavailable Encounter Details Date Type Department Care Team (Late st Contact Info) Description 06/21/2025 Orders Only [facility] [address] [place], [place] [phone] Provider, MD Karoline Social History Tobacco Use [...] on filedocumented in this encounter Care Teams Distribution Center Manager Relationship Specialty Start Date End Date Catherine Jon MD [address] [place] [address] PCP - General Family Medicine 09/21/24 Kyle Velez, RN [address] [place] [address] Registered Nurse Family Medicine 06/15/25 08/10/25 Isha Do 06/15/25 08/10/25 Kyle Velez, RN [address] [place] [address] Registered Nurse Family Medicine 08/20/25 Mustapha Fritz 08/20/25 [facility] 07/26/24 Blaire Alcantara MD [facility] [address] [place] [address] [address] [place] [address] Medical Oncologist Hematology and Oncology 09/21/24 Jung Maxwell MD [facility] [address] [place] [address] [place] [address] Consulting Physician Urology 09/21/24 Bryant Ferro DO Consulting Physician Cardiology 09/21/24 [facility] [address] [place] [address] Consulting Physician Nephrology 09/21/24 Denilson Fay MD, PhD [facility] [address] [place] [address] Consulting Physician Ophthalmology 09/21/24 [employer], CHILD DAY CARE PROVIDER Agency [address] [place] [address] Personal Care Services 09/21/24 documented as of this encounter
== END 2025-08-21 12:52 | disposition home or self-care (01) ==
LOC: HO.US 12:51
PROVIDERS: PCP Family Medicine; Visit Provider Internal Medicine
DX: R60.9 Edema, unspecified (principal); M79.89 Other specified soft tissue disorders; N18.6 End stage renal disease; Z99.2 Dependence on renal dialysis
CPT/HCPCS: 93971

== ENCOUNTER → 2025-08-21 13:16 | Outpatient (BNV) | payer MEDICAID, SELFPAY | PROVIDERS: PCP Family Medicine; Visit Provider Radiology Diagnostic Radiology | DX: R22.31 Localized swelling, mass and lump, right upper limb (principal) | CPT/HCPCS: 93971 ==

== ENCOUNTER 2025-08-21 15:01 | Emergency (ER) | payer MEDICAID, SELFPAY ==
--- NOTE | 2025-08-21 15:02 | ED.GENADULT ---
HPI - General Adult General Chief complaint: Extremity Problem Stated complaint: blood clot Time Seen by Provider: 08/21/25 15:18 Source: patient and historic interpreter (all interactions with this patient were facilitated with an [facility] historical interpreter) Mode of arrival: ambulatory Limitations: language barrier (all interactions with this patient were facilitated with an [facility] historical interpreter) History of Present Illness ED Provider: Janee Zarate PA-C HPI narrative: Patient is a 59 year old assigned female at with a history of diabetes mellitus, end-stage renal disease (on hemodialysis M/W/F) s/p new fistula placement by Dr. Freddie Campoverde at [facility] on 08/07/2025, bladder cancer, diabetic nephropathy, secondary hyperparathyroidism, and cardiomyopathy presenting to the emergency department today with right upper extremity swelling, pain, and coolness. Patient states that over the last day she has had worsening right upper extremity pain, coolness, and swelling. Patient states that she had the fistula placed by Dr. Campoverde on 08/07/2025. Patient denies any other complaints at this time. Related Data Home Medications ?Medication ?Instructions ?Recorded ?Confirmed amitriptyline 50 mg tablet 50 mg PO BEDTIME 10/22/23 11/03/24 cholecalciferol (vitamin D3) 50 50 mcg PO DAILY 10/22/23 11/03/24 mcg (2,000 unit) capsule (Vitamin D3) lancets 33 gauge (TRUEplus Lancets) #100 ea 10/22/23 11/03/24 omeprazole 20 mg capsule,delayed 20 mg PO BID@0630,1630 10/22/23 11/03/24 release pen needle, diabetic 32 gauge x #1,200 ea 10/22/23 11/03/24/32 (Pentips Pen Needle) rosuvastatin 40 mg tablet 40 mg PO BEDTIME 10/22/23 11/03/24 ferrous sulfate 325 mg (65 mg 325 mg PO BEDTIME 04/08/24 11/03/24 iron) tablet (FeroSul) metoprolol tartrate 50 mg tablet 50 mg PO BID 04/08/24 11/03/24 cinacalcet 30 mg tablet 30 mg PO MOWEFR 08/01/24 11/03/24 insulin lispro 100 unit/mL 8 - 18 unit subcut TIDAC 08/01/24 11/03/24 subcutaneous pen dapagliflozin propanediol 10 mg 10 mg PO QAM 10/19/24 11/03/24 tablet (Farxiga) sevelamer carbonate 800 mg tablet 800 mg PO TID 10/19/24 11/03/24 Previous Rx's ?Medication ?Instructions ?Recorded apixaban 2.5 mg tablet (Eliquis) 2.5 mg PO BID #60 tabs 08/02/24 oxybutynin chloride 5 mg tablet 5 mg PO Q8H bladder spasms #20 tabs 08/22/24 FreeStyle Gary 3 Plus Sensor #6 ea 10/19/24 (blood-glucose sensor) FreeStyle Gary 3 [place] #1 ea 10/19/24 (blood-glucose,door worker,cont) benzonatate 100 mg capsule 100 mg PO BID #28 caps 02/07/25 insulin glargine 100 unit/mL (3 32 unit (0.32 mL) subcut BEDTIME 02/07/25 mL) subcutaneous pen (Lantus days #30 mL Solostar U-100 Insulin) prednisone 10 mg tablet 20 mg (2 x 10 mg) PO DAILY #10 tabs 03/13/25 tramadol 50 mg tablet 50 mg PO BID PRN Pain (Scale Score 04/17/25 7-10) #30 tabs doxycycline hyclate 100 mg tablet 100 mg PO BID 7 days #14 tabs 05/22/25 sennosides 8.6 mg-docusate sodium 1 tab-cap PO BEDTIME #30 tabs 05/29/25 50 mg tablet (Senna with Docusate Sodium) FreeStyle Test (blood sugar #400 ea 06/21/25 diagnostic) aspirin 81 mg tablet,delayed 81 mg PO QAM #90 tabs 06/21/25 release clotrimazole-betamethasone 1 1 appl topical BID rash feet #45 06/21/25 %-0.05 % topical cream grams gabapentin 300 mg capsule 300 mg PO TID #270 caps 06/21/25 hydralazine 10 mg tablet 10 mg PO BID #180 tabs 07/26/25 cefpodoxime 200 mg tablet 200 mg PO Q12H 7 days #14 tabs 08/17/25 Allergies Allergy/AdvReac Type Severity Reaction Status Date / Time No Known Allergies (No Known Allergy Verified 08/21/25 15:06 Allergies*) Review of Systems Constitutional: Constitutional: Reports as per HPI Eyes: Eyes: Reports as per HPI ENT: Reports as per HPI Cardiovascular: Cardiovascular: Reports as per HPI Respiratory: Respiratory: Reports as per HPI Gastrointestinal: Gastrointestinal: Reports as per HPI Genitourinary: Genitourinary: Reports as per HPI Musculoskeletal: Musculoskeletal: Reports as per HPI Integumentary/Breasts: Skin/Breast: Reports as per HPI Neurologic: Reports as per HPI Psychiatric: Psychiatric: Reports as per HPI Endocrine: Endocrine: Reports as per HPI Hematologic/Lymphatic: Hematologic/Lymphatic: Reports as per HPI Allergic/Immunologic: Allergic/Immunologic: Reports as per HPI [facility] Past Medical History Attestation statement: The following information was validated with the patient. Source: old records reviewed and nursing notes reviewed Medical History ESRD (end stage renal disease) on dialysis Mass of bladder Bladder mass Pacemaker History of adenomatous polyp of colon Cardiomyopathy Chronic kidney disease, stage 4 (severe) Hypertension Type 2 diabetes mellitus with diabetic nephropathy Surgical History History of insertion of tunneled central venous catheter (CVC) with port History of bladder surgery History of ankle surgery History of biopsy Family History Family History Father No problems noted. Mother No problems noted. Social History Social History Household Members: Children Housing: House Are you a primary family member caretaker to a significant other at home: No Do you presently have visiting nurse or other home services: No Alcohol intake: never Patient Tobacco Use Status: Never used Tobacco Advance Directives: Yes Advance Directives Information Provided: Yes Advance Directives on File: No service: No Current occupational status: disabled Gender identity: Female Physical Exam ED Vital Signs: Vital Signs - 24 hr 08/21/25 15:04 Temperature 98.1 F Pulse Rate 81 Respiratory Rate 18 Blood Pressure 175/78 H Pulse Oximetry 99 Oxygen Delivery Method Room Air BMI result Body Mass Index 26.7 Const General: cooperative, no acute distress, alert and awake Nutritional Appearance: well nourished Orientation/consciousness: patient oriented x3 HENMT Head: Yes normal to inspection and Yes atraumatic Ears: hearing grossly normal bilaterally and external ears normal General nose exam: Normal external nose present, no nasal discharge noted and no epistaxis Face and sinus: Yes normal facial exam, No abrasion and No laceration Mouth: Normal oral and palatal mucosa present, no drooling and no muffled voice Eyes General: appearance normal, both eyes and all related structures Periorbital: periorbital findings normal Eyelids: Yes eyelids normal Conjunctivae: conjunctivae normal Pupils: Equal, round and reactive pupils present EOM: EOMs intact bilaterally Neck Neck: Yes normal visual inspection and Yes full ROM Resp Effort & Inspection: normal respiratory effort and able to speak in complete sentences Neuro General: patient oriented x3, moves all extremities and CN's II-XI intact bilaterally Cranial nerves: Yes Equal, round and reactive pupils present Cognition (Neuro): normal cognition Extrem Other: significant swelling present to the right upper extremity right upper extremity is cool compared to the left difficult to palpate right radial pulse sluggish right hand capillary refill Psych Appearance: grossly normal Mental Status: mental status grossly normal Affect: normal affect Attitude: cooperative Thought process: Normal thought process present Thought content: Normal thought content present Insight: Good insight present (Psych) Course Course Course Narrative: This is a rapid medical exam performed by Alex Gutierres NP: Additional HPI, ROS, PE not included below will be deferred to primary provider. Patient is a 59y/o Filipino speaking female presenting from /s with +arterial clot. Right arm edematous and cool, unable to palpate radial pulse in triage, delayed cap refill. Had fistula to R arm done 08/07. Plan: labs Medications Administered Generic Name Dose Route Start Last Admin Trade Name Freq PRN Reason Stop Dose Admin Heparin Sodium/Sodium Chloride 25,000 unit in 250 mls @ 0 mls/hr 08/21/25 15:30 08/21/25 16:05 Heparin Sodium,Porcine/1/2ns IVCONT 12 units/kg/hr .Q0M RAYMOND 7.7 mls/hr Protocol Administration Per Protocol Medical Decision Making Medical Decision Making MDM Narrative: Patient is a 59 year old assigned female at with a history of diabetes mellitus, end-stage renal disease (on hemodialysis M/W/F) s/p new fistula placement by Dr. Freddie Campoverde at [facility] on 08/07/2025, bladder cancer, diabetic nephropathy, secondary hyperparathyroidism, and cardiomyopathy presenting to the emergency department today with right upper extremity swelling, pain, and coolness. Patient's physical exam was as noted in the physical exam portion of this note and consistent with extremity ischemia. Patient's blood work showed an elevated CR of 5.80 which is consistent with her baseline CKD but otherwise unremarkable. Patient's RUE US showed a known thrombus in the right internal jugular vein, recent AV fistula graft from the brachial artery to the antecubital fossa/basilic vein that is patent however, there is a large surrounding soft tissue hematoma measuring up to 4.8 x 2.8cm with a thrombus seen in the brachial artery distal to the fistula anastomosis. I spoke with our covering vascular surgeon, Dr. Riddle, who recommended transfer back to [facility] for continuity of care given Dr. Campoverde performed this procedure. Agreed with starting the patient on a low dose heparin drip given she took her eliquis as prescribed this morning. I spoke with Dr. Campoverde who agreed to accept this patient to [facility]. I spoke with Dr. Inna Lemon who accepted the patient to the [facility] Emergency Department. I explained my physical exam findings as well as all test results to the patient. I answered all questions asked by the patient. Patient verbalized agreement and understanding with this treatment plan and transfer to the [facility] Emergency Department. Differential Diagnosis Differential Diagnoses: The differential diagnosis associated with the presentation includes Arterial clot Brachial artery clot Limb ischemia Admission/Observation Consideration of admission/observation: Escalation of care including admission/observation considered Patient transferred to as noted in the MDM Rationale portion of this note. Consult Healthcare Provider Management of the patient was discussed with: Retail Manager (spoke with Dr. Riddle and Dr. Campoverde as noted in the MDM Rationale portion of this note) Lab Data [facility] Lab Attestation statement: I reviewed the patient's lab results. My interpretation of these results are in the MDM Rationale portion of this note. 08/21/25 15:14 08/21/25 15:14 Labs: Lab Results 08/21/25 Range/Units 15:14 WBC 8.9 (4.8-10.8) X10*3/uL RBC 3.59 L (4.20-5.50) X10*6/uL Hgb 11.0 L (12.0-16.0) g/dl Hct 34.6 L (37.0-47.0) % MCV 96.4 (80.0-98.0) fL MCH 30.6 (27.0-33.0) pg MCHC 31.8 (31.0-35.0) g/dl RDW 15.1 (11.0-16.0) % Plt Count 215 (160-400) X10*3/uL MPV 10.0 (9.4-12.3) fL Immature Gran % (Auto) 0.2 (0.0-0.4) % Neut % (Auto) 72.3 (45-73) % Lymph % (Auto) 18.2 L (20-40) % [place] % (Auto) 5.9 (2-11) % Eos % (Auto) 2.8 (0-4) % Baso % (Auto) 0.6 (0-2) % Lymph # (Auto) 1.6 (1.2-4.9) X10*3/uL [place] # (Auto) 0.5 (0.1-1.2) X10*3/uL Eos # (Auto) 0.3 (0.0-0.4) X10*3/uL Baso # (Auto) 0.1 (0.0-0.2) X10*3/uL Abs Immat Gran (auto) 0.02 (0.00-0.03) X10*3/uL Absolute Neuts (auto) 6.4 (2.0-8.3) x10*3/uL Absolute Nucleated RBC 0.000 (0.0-0.012) X10*3/uL Nucleated RBC % (auto) 0.0 (0.0-0.2) /100WBC PT 13.3 (11.2-13.5) SEC INR 1.1 (0.9-1.1) APTT 31.4 (26.7-34.1) SEC Sodium 139 (135-145) mmol/L Potassium 4.0 (3.3-5.1) mmol/L Chloride 99 (96-108) mmol/L Carbon Dioxide 29 (22-29) mmol/L Anion Gap 15 (12-20) BUN 52 H (9-16) mg/dL Creatinine 5.80 H* (0.5-1.4) mg/dL Estim Creat Clear Calc 8.7 Estimated GFR 7 Random Glucose 163 H (60-115) mg/dL Calcium 8.8 (8.4-10.2) mg/dL Total Bilirubin 0.2 (0.0-1.0) mg/dL AST 42 H (5-31) U/L ALT 24 (0-31) U/L Alkaline Phosphatase 135 H (39-117) U/L Total Protein 7.7 (6.5-8.0) g/dL Albumin 4.2 (3.5-5.0) g/dL Independent Interpretation I performed an independent interpretation of an: Ultrasound Interpretation: My interpretation is in agreement with the radiologist's impression of this imaging study as written below. EXAMINATION: US TRIPLEX UPPER EXTREMITY, RIGHT CLINICAL INFORMATION: Swelling after dialysis COMPARISON: Previous right upper extremity ultrasound July 2024 TECHNIQUE: Color-flow triplex imaging with spectral analysis and compression Doppler was performed on the right upper extremity. FINDINGS: There is thrombus seen in the right internal jugular vein. This was seen on prior exam July 2024 and this may be chronic. The right subclavian vein is patent. The right axillary vein is patent. There is a graft/fistula from the brachial artery to the antecubital or basilic vein. The graft is patent. There is a large complex fluid collection with internal echoes adjacent to the graft suggestive of a hematoma. This measures 4.8 x 1.8 x 2.8 cm. The brachial artery is patent proximal to the fistula. There is hypoechoic material in the brachial artery distal to the fistula anastomosis suggestive of thrombus. The cephalic, brachial and basilic veins are patent. US/US venous duplex UE RT IMPRESSION: Thrombus in the right internal jugular vein. This may be chronic. Recent AV fistula/graft from the brachial artery to the antecubital fossa/basilic vein. This is patent. Large surrounding soft tissue hematoma measuring up to 4.8 x 2.8 cm. Thrombus seen in the brachial artery distal to the fistula anastomosis. Findings were communicated to Dr. Alcantara by the cytotechnologist/histotechnologist at the completion of the exam on 08/21/2025 at 1452 and the patient was instructed to go to the emergency room. Electronically signed by: Marilynn Causey MD 08/21/2025 03:[address] [facility] Dictated By: Marilynn Causey MD Signed By: Electronically signed by Marilynn Causey MD 08/21/25 1538 Radiology Impression Discussion of test interpretation with radiology: I have reviewed the radiologist's reading. External Record Review External record reviewed: Inpatient record (reviewed records from [facility]) and Outpatient record (reviewed records from [facility]) Critical Care Time Critical Care Time Critical Care Time: Yes Total Critical Care Time: 40 Attestation: I spent 40 minutes of Critical Care Time with this patient. This does not include time spent on separately reported billable procedures. Discharge Plan Discharge Clinical Impression: Brachial artery occlusion Patient Disposition: [facility] Transfer Details: [facility] Emergency Department Prescriptions: No Action hydralazine 10 mg tablet 10 mg PO BID Qty: 180 1RF insulin lispro 100 unit/mL insulin pen 8 - 18 unit subcut TIDAC Rx Instructions: INJECT 8-18 UNITS SUBCUTANEOUSLY THREE TIMES DAILY BEFORE MEALS DIRECTED cinacalcet 30 mg tablet 30 mg PO MOWEFR Rx Instructions: TAKE 1 TABLET BY MOUTH 3 TIMES PER WEEK ON WEDNESDAY, WEDNESDAY, AND WEDNESDAY IN THE EVENING Eliquis 2.5 mg Tablet 2.5 mg PO BID Qty: 60 0RF prednisone 10 mg Tablet 20 mg PO DAILY Qty: 10 0RF tramadol 50 mg Tablet 50 mg PO BID PRN (Reason: Pain (Scale Score 7-10)) Qty: 30 0RF doxycycline hyclate 100 mg Tablet 100 mg PO BID 7 Days Qty: 14 0RF sennosides-docusate sodium [Senna with Docusate Sodium] 8.6-50 mg Tablet 1 tab-cap PO BEDTIME Qty: 30 2RF ferrous sulfate [FeroSul] 325 mg (65 mg iron) tablet 325 mg PO BEDTIME metoprolol tartrate 50 mg tablet 50 mg PO BID cefpodoxime 200 mg tablet 200 mg PO Q12H 7 Days Qty: 14 0RF Rx Instructions: must administer with a meal/food (DME) lancets [TRUEplus Lancets] 33 gauge misc See Rx Instructions .ROUTE .MEDSUPPLY Qty: 100 Rx Instructions: As directed (DME) pen needle, diabetic [Pentips Pen Needle] 32 gauge x 5/32 needle See Rx Instructions .ROUTE DIRECTED Qty: 1200 Rx Instructions: As directed omeprazole 20 mg capsule,delayed release(DR/EC) 20 mg PO BID@0630,1630 amitriptyline 50 mg tablet 50 mg PO BEDTIME cholecalciferol (vitamin D3) [Vitamin D3] 50 mcg (2,000 unit) capsule 50 mcg PO DAILY rosuvastatin 40 mg tablet 40 mg PO BEDTIME oxybutynin chloride 5 mg tablet 5 mg PO Q8H Qty: 20 0RF Rx Instructions: Take one for bladder spasm insulin glargine [Lantus Solostar U-100 Insulin] 100 unit/mL (3 mL) insulin pen 32 unit subcut BEDTIME 90 Days Qty: 30 3RF benzonatate 100 mg capsule 100 mg PO BID Qty: 28 0RF sevelamer carbonate 800 mg tablet 800 mg PO TID dapagliflozin propanediol [Farxiga] 10 mg tablet 10 mg PO QAM (DME) FreeStyle Gary 3 Plus Sensor Device See Rx Instructions .Route Qty: 6 3RF Rx Instructions: As directed (DME) FreeStyle Gary 3 [place] Misc See Rx Instructions .Route Qty: 1 0RF Rx Instructions: As directed aspirin 81 mg tablet,delayed release (DR/EC) 81 mg PO QAM Qty: 90 3RF (DME) FreeStyle Test Strip See Rx Instructions .Route Qty: 400 3RF Rx Instructions: four times daily gabapentin 300 mg capsule 300 mg PO TID Qty: 270 3RF clotrimazole-betamethasone 1-0.05 % cream 1 appl topical BID Qty: 45 1RF Rx Instructions: Apply topically to feet up to two times daily Print Language: Filipino
[2025-08-21 15:04] VITALS: BP 175/78; PULSE 81; RESP 18; TEMP 36.7; O2SAT 99; BMI 26.7
[2025-08-21 15:18] LABS: MANUAL DIFF FLAG NO
[2025-08-21 15:19] LABS: Hematocrit 34.6 % (37.0-47.0); Hemoglobin 11.0 g/dl (12.0-16.0); Imm Gran Abs Auto 0.02 X10*3/uL (0.00-0.03); Imm Gran Pct Auto 0.2 % (0.0-0.4); Lymphocytes Absolute Auto 1.6 X10*3/uL (1.2-4.9); Mean Corpuscular HGB Conc 31.8 g/dl (31.0-35.0); Mean Corpuscular Hemoglobin 30.6 pg (27.0-33.0); Mean Corpuscular Volume 96.4 fL (80.0-98.0); NRBC Abs Auto 0.000 X10*3/uL (0.0-0.012); NRBC Pct Auto 0.0 /100WBC (0.0-0.2); Platelet Count 215 X10*3/uL (160-400); Red Blood Count 3.59 X10*6/uL (4.20-5.50); White Blood Count 8.9 X10*3/uL (4.8-10.8)
[2025-08-21 15:27] LABS: INTERNATIONAL NORM RATIO 1.1 (0.9-1.1); Prothrombin Time 13.3 SEC (11.2-13.5)
[2025-08-21 15:39] LABS: Alanine Aminotransferase 24 U/L (0-31); Albumin Level 4.2 g/dL (3.5-5.0); Alkaline Phosphatase 135 U/L (39-117); Anion Gap 15 (12-20); Aspartate Amino Transferase 42 U/L (5-31); Blood Urea Nitrogen 52 mg/dL (9-16); Calcium 8.8 mg/dL (8.4-10.2); Carbon Dioxide 29 mmol/L (22-29); Chloride 99 mmol/L (96-108); Creatinine Clr Calc Pharmacy 8.7; Estimated Glomerular Filt Rate 7; Potassium 4.0 mmol/L (3.3-5.1); Sodium 139 mmol/L (135-145); Total Protein 7.7 g/dL (6.5-8.0)
[2025-08-21 15:58] LABS: Partial Thromboplastin Time 31.4 SEC (26.7-34.1)
[2025-08-21] MEDS: Heparin Sodium,Porcine/1/2NS 25,000 UNIT/250 ML IV.SOLN 7.7 UNIT IVCONT (16:05)
--- NOTE | 2025-08-21 16:07 | PC.NURSE ---
pt brought back from triage after US which indicated arterial occlusion in right arm. pt has recent fistula placed there. right arm is swollen, skin dry. heparin gtt started per orders. order placed for repeat PTT HD in 6 hours. (2204) 20g IV left AC
[2025-08-21 16:31] VITALS: BP 159/76; PULSE 70; RESP 18; TEMP 36.7; O2SAT 98
--- NOTE | 2025-08-24 08:10 | PC.NURSE ---
late entry - heparin gtt infusing when pt was transferred at 1631.
== END 2025-08-21 16:32 | disposition short-term general hospital (02) ==
PROVIDERS: Physician Assistant Medical; Registered Nurse Emergency; Emergency Provider Emergency Medicine; PCP Family Medicine
DX: I74.2 Embolism and thrombosis of arteries of the upper extremities (principal); M79.601 Pain in right arm; I70.90 Unspecified atherosclerosis; E11.22 Type 2 diabetes mellitus with diabetic chronic kidney disease; I12.0 Hypertensive chronic kidney disease with stage 5 chronic kidney disease or end stage renal disease; N18.6 End stage renal disease; Z99.2 Dependence on renal dialysis; Z79.899 Other long term (current) drug therapy
CPT/HCPCS: 36415; 80053; 85025; 85610; 85730; 96365; 99285; J1644

== ENCOUNTER → 2025-08-27 23:59 | Outpatient (BNV) | payer MEDICAID, SELFPAY | PROVIDERS: PCP Family Medicine; Visit Provider Internal Medicine Nephrology | DX: N18.6 End stage renal disease (principal) | CPT/HCPCS: 90961 ==

== ENCOUNTER 2025-08-28 16:06 | Outpatient (REF) | payer MEDICAID, SELFPAY ==
--- NOTE | ~2025-08-28 | US_ITS ---
EXAMINATION: US TRIPLEX UPPER EXTREMITY, RIGHT CLINICAL INFORMATION: Follow up hematoma as well as clot of right upper COMPARISON: Ultrasound of upper extremity of veins right on August 21, 2025 TECHNIQUE: Color-flow triplex imaging with spectral analysis and compression Doppler was performed on the right upper extremity. FINDINGS: Redemonstration of known thrombus in the right internal jugular vein, which appears chronic. The subclavian and axillary veins are patent. The area of complex fluid collection with internal echoes suggestive of hematoma in the axillary region measures approximately 3.0 x 1.6 x 2.9 cm (prior measurements of 4.8 x 1.8 x 2.8 cm appears to be have been measured at different levels, therefore, direct comparison is difficult). The brachial, cephalic, radial and ulnar veins appear patent. Basilic vein could not be well seen. US/US venous duplex UE RT IMPRESSION: 1. 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 2. Persistent soft tissue hematoma in the axillary region with current measurements of 3.0 x 1.6 x 2.9 cm. Note that the prior measurements were obtained at different levels, therefore, direct comparison of measurements is difficult. Electronically signed by: Keven Stockton MD 08/29/2025 07:35 AM [facility]
--- OUTSIDE RECORDS SUMMARY | 2025-08-28 17:15 | XMS_ITS | Encounter Summary ---
Author Organization [employer] Address 75 [facility] 7t [place] [address] Care Team Providers Care Snout Puller Name Role Phone Catherine Jon MD Primary Care Provider [phone] Kyle Velez RN Unavailable [phone] Isha Do Unavailable Kyle Velez RN Unavailable [phone] Mustapha Fritz Unavailable Reason for Visit * Reason Onset Date Comments Call Back Request 11/23/2024 Encounter Details Date Type Department Care Team (Late st Contact Info) Description 11/23/2024 Telephone [facility] [address] [place] [address] Catherine Jon MD [address] [place], [place] [phone] Call Back Request Social History Tobacco Use [...] from pt requesting a call back from [employer]. Contact pt at [phone] documented in this encounter Plan of Treatment Not on file documented as of this encounter Visit Diagnoses Not on filedocumented in this encounter Care Teams Snout Puller Relationship Specialty Start Date End Date Catherine Jon MD [address] [place] [address] PCP - General Family Medicine 09/21/24 Kyle Velez, RN [address] [place] [address] Registered Nurse Family Medicine 06/15/25 08/10/25 Isha Do 06/15/25 08/10/25 Kyle Velez, TYESHA [address] [place] [address] Registered Nurse Family Medicine 08/20/25 Mustapha Fritz 08/20/25 [facility] 07/26/24 Blaire Alcantara MD [facility] On[facility] [address] [facility] [address] [place] [address] Medical Oncologist Hematology and Oncology 09/21/24 Jung Maxwell MD [facility] [address] [place] [address] [place] [address] Consulting Physician Urology 09/21/24 Bryant Ferro DO Consulting Physician Cardiology 09/21/24 [facility] [address] [place] [address] Consulting Physician Nephrology 09/21/24 Denilson Fay MD, PhD [facility] [address] [place] [address] Consulting Physician Ophthalmology 09/21/24 [employer], FRETTED INSTRUMENT INSPECTOR Agency [address] [place] [address] Personal Care Services 09/21/24 documented as of this encounter
--- OUTSIDE RECORDS SUMMARY | 2025-08-28 17:15 | XMS_ITS | Encounter Summary ---
Author Organization [employer] Address 75 [facility] 7t [place] [address] Care Team Providers Care Outside Plant Supervisor Name Role Phone Catherine Jon MD Primary Care Provider [phone] Kyle Velez RN Unavailable [phone] Isha Do Unavailable Kyle Velez RN Unavailable [phone] Mustapha Fritz Unavailable Encounter Details Date Type Department Care Team (Late st Contact Info) Description 01/21/2023 Orders Only [facility] [address] [place], [place] [phone] Anne Gama LPN Social History Tobacco Use [...] on filedocumented in this encounter Care Teams Outside Plant Supervisor Relationship Specialty Start Date End Date Catherine Jon MD [address] [place] [address] PCP - General Family Medicine 09/21/24 Kyle Velez, RN [address] [place] [address] Registered Nurse Family Medicine 06/15/25 08/10/25 Isha Do 06/15/25 08/10/25 Kyle Velez, RN [address] [place] [address] Registered Nurse Family Medicine 08/20/25 Mustapha Fritz 08/20/25 [facility] 07[facility]24 Blaire Alcantara MD [facility] On[facility] [address] [facility] [address] [place] [address] Medical Oncologist Hematology and Oncology 09/21/24 Jung Maxwell MD [facility] Urology [facility] [address] [place] [address] [place] [address] Consulting Physician Urology 09/21/24 Bryant Ferro DO Consulting Physician Cardiology 09/21/24 [facility] [address] [place] [address] Consulting Physician Nephrology 09/21/24 Denilson Fay MD, PhD [facility] [address] [place], [place] [phone] Consulting Physician Ophthalmology 09/21/24 [employer], ADMINISTRATIVE OFFICE MANAGER Agency [address] [place] [address] Personal Care Services 09/21/24 documented as of this encounter
--- OUTSIDE RECORDS SUMMARY | 2025-08-28 17:15 | XMS_ITS | Encounter Summary ---
Author Organization [employer] Address [address] [facility] [address] [place] [address] Care Team Providers Care Meat Wrapper Name Role Phone Catherine Jon MD Primary Care Provider [phone] Kyle Velez RN Unavailable [phone] Isha Do Unavailable Kyle Velez RN Unavailable [phone] Mustapha Fritz Unavailable Encounter Details Date Type Department Care Team (Late st Contact Info) Description 09/30/2022 Orders Only [facility] [address] [place], [place] [id number] Anne Gama LPN Social History Tobacco Use [...] on filedocumented in this encounter Care Teams Meat Wrapper Relationship Specialty Start Date End Date Catherine Jon MD [address] [place] [address] PCP - General Family Medicine 09/21/24 Kyle Velez, RN [address] [place] [address] Registered Nurse Family Medicine 06/15/25 08/10/25 Isha Do 06/15/25 08/10/25 Kyle Velez, RN [address] [place] [id number] Registered Nurse Family Medicine 08/20/25 [facility]ha Fritz [facility] Blaire Alcantara MD [facility] [address] [facility] [address] [place] [address] Medical Oncologist Hematology and Oncology 09/21/24 Jung Maxwell MD [facility] [address] [place] [address] [place] [address] Consulting Physician Urology 09/21/24 Bryant Ferro DO Consulting Physician Cardiology 09/21/24 [facility] [address] [place] [id number] Consulting Physician Nephrology 09/21/24 Denilson Fay MD, PhD [facility] [address] [place], [place] [id number] Consulting Physician Ophthalmology 09/21/24 [employer], [employer] [facility] [address] [place] [address] Personal Care Services 09/21/24 documented as of this encounter
--- OUTSIDE RECORDS SUMMARY | 2025-08-28 17:15 | XMS_ITS | Clinical Summary ---
Author Organization [facility] Address [address] [place] [phone] Phone Care Team Providers Care Speech Correction Assistant Name Role Phone Catherine Jon MD Primary Care Provider [phone] Allergies No known active allergies Medications sevelamer [...] problem 08/07/2025 ESRD (end stage renal disease) ([facility] V24, [facility] V28) 07/05/2025 Encounters Date Type Department Care Team Description 08/21/2025 4:54 PM EST - 08/21/2025 10:01 PM EST Emergency [facility] Emergency [address] [place] [phone] Payal Rodriguez MD Landry, Jonathan P, MD Localized swelling of right upper extremity (Primary Dx) Discharge Disposition: Home or Self Care 08/07/2025 7:55 AM EST Anesthesia Event [facility] OR [address] [place] [phone] Juan Jimenez MD Sandjo, Hyancinthe, SRNA 08/07/2025 7:30 AM EST - 08/07/2025 10:00 AM EST Surgery [facility] OR [address] [place] [phone] Freddie Campoverde MD RIGHT DIALYSIS GRAFT INSERTION [84120 (CPT )] 08/07/2025 5:33 AM EST - 08/07/2025 12:30 PM EST Hospital Encounter [facility] OR [address] [place] [phone] Freddie Campoverde MD Discharge Disposition: Home or Self Care 07/24/2025 Telephone General Surgery [facility] [address] [phone] Freddie Campoverde MD 07/05/[address] [phone] Freddie Campoverde MD 07/04/2025 Telephone [facility] Surgery [address] [phone] Freddie Campoverde MD 06/20/2025 9:29 AM EDT - 06/20/2025 11:59 PM EDT Hospital Encounter [facility] PET Scan [address] [place] [phone] Malignant neoplasm of bladder, unspecified ([facility] V24, [facility] V28) Discharge Disposition: Home or Self Care 06/07/2025 1:30 PM EDT Consult [facility] Surgery [address] [phone] Freddie Campoverde MD End stage renal disease ([facility] V24, [facility] V28) from Last 3 Months Surgical History Surgery Date Site/Laterality Comments OTHER SURGICAL HISTORY Left ARM SURGERT FX ANKLE FRACTURE SURGERY 09/27/2011 - 09/26/2012 PACEMAKER IMPLANT Left AV FISTULA PLACEMENT Left Medical History Medical History Date Comments Fractures Hypertension Diabetes mellitus ([facility] V24, [facility] V28) Chronic kidney disease Cancer ([facility] V24, [facility] V28) BLADDER History of chemotherapy BLADDER CA Dialysis patient ([facility] V24) E XSISTING PERMACATH Hyperlipidemia PVD (peripheral vascular disease) ([facility] V24) Social History Tobacco Use Types Packs/Day [...] Sign Reading Time Taken Comments Blood Pressure 156/70 08/21/2025 9:34 PM EST Pulse 81 08/21/2025 9:34 PM EST Temperature 36.4 C (97.6 F) 08/21/2025 9:34 PM EST Respiratory Rate 16 08/21/2025 9:34 PM EST Oxygen Saturation 97% 08/21/2025 9:34 PM EST Inhaled Oxygen Concentration - - Weight 64 kg (141 lb) 08/21/2025 5:35 PM EST Height 154.9 cm (5' 1 ) 08/21/2025 5:35 PM EST Body Mass Index 26.64 08/21/2025 5:35 PM EST Plan of Treatment Health Maintenance [...] 09/21/2024 Diabetes: Annual GFR (Glomerular Filtration Rate) 08/21/2026 08/21/2025, 08/21/2025, 08/17/2025, Additional history exists Hypertension/CHF/CAD Annual BMP Blood Test 08/21/2026 08/21/2025, 08/21/2025, 08/17/2025, Additional history exists Cholesterol Screening (Lipid Panel) [...] Campoverde MD Medical Devices Implanted Type Area Arcade Technician Device Identifier Shelf Expiration Date Model / Serial / Lot Hemostat Absorb Surgicel Nu-Knit 3x4in - Sna - [id number] Implanted:Qty: 1 on 08/07/2025 by Freddie Campoverde MD at [facility] Hemostasis Right: Jose Daniel [employer] [id number] 02/24/2030 1943S / NA / [id number] Graft Vasc Propaten 4-7mm 45cm - [id number] - [id number] Implanted:Qty: 1 on 08/07/2025 by Freddie Campoverde MD at [facility] Vascular Grafts Right: Jose [employer] 01/27/2028 [id number] / [id number] / N/A Procedures Procedure Name Priority Date/Time Associated Diagnosis Comments VAS US DUPLEX UPPER EXT VENOUS RIGHT STAT 08/21/2025 7:54 PM EST Localized swelling of right upper extremity VAS US DUPLEX UPPER EXT ART RIGHT W DOPPLER STAT 08/21/2025 7:54 PM EST Localized swelling of right upper extremity RECHECK ABORH Routine 08/21/2025 6:10 PM EST VENOUS BLOOD GAS STAT 08/21/2025 6:10 PM EST CBC WITH AUTO DIFFERENTIAL STAT 08/21/2025 6:10 PM EST TYPE AND SCREEN STAT 08/21/2025 6:10 PM EST ACTIVATED PARTIAL THROMBOPLASTIN TIME STAT 08/21/2025 6:10 PM EST PROTHROMBIN TIME WITH INR STAT 08/21/2025 6:10 PM EST CBC AND DIFFERENTIAL STAT 08/21/2025 6:10 PM EST MAGNESIUM STAT 08/21/2025 6:10 PM EST COMPREHENSIVE METABOLIC PANEL STAT 08/21/2025 6:10 PM EST CO CRITICAL CARE 30-74 MINUTES Routine 08/21/2025 4:53 PM EST POCT GLUCOSE BLOOD Routine 08/07/2025 11:27 AM EST OXYGEN THERAPY, ADULT Routine 08/07/2025 10:08 AM EST TH AN LMA(NO CHARGE) Routine 08/07/2025 8:16 AM EST CO CREATION AV FISTULA OTHER THAN DIRECT AV [...] V28) from Last 3 Months Results * Vascular US duplex upper extremity venous right (08/21/2025 7:54 PM EST) Anatomical Region Laterality Modality Vascular, Abdomen Ultrasound 08/21/2025 8:37 PM EST Addenda Addendum by Vish Palacio MD on 08/21/2025 8:41 PM EST ADDENDUM: This report was discussed with PAYAL RODRIGUEZ MD on Aug 21, 2025 20:41:00 EST. This document has been electronically signed by: Farnaz Hassan on 08/21/2025 20:41:35 Addendum by Vish Palacio MD on 08/21/2025 8:41 PM EST ADDENDUM: This report was discussed with PAYAL RODRIGUEZ MD on Aug 21, 2025 20:41:00 EST. This document has been electronically signed by: Farnaz Hassan on 08/21/2025 20:41:35 Impressions 08/21/2025 8:37 PM EST Nonocclusive thrombus in the right internal jugular vein. Right subclavian, axillary, brachial, basilic, and cephalic veins are patent. This document has been electronically signed by: Vish Palacio MD on 08/21/2025 20:37:00 Narrative 08/21/2025 8:37 PM EST INDICATION: DVT Hx Venous duplex ultrasound right upper extremity Comparison: None provided Findings: Nonocclusive thrombus in the right internal jugular vein. Right subclavian, axillary, brachial, basilic, and cephalic veins are fully compressible with normal Doppler color flow and spectral tracings. Procedure Note Vish Palacio MD - 08/21/2025 INDICATION: DVT Hx Venous duplex ultrasound right upper extremity Comparison: None provided Findings: Nonocclusive thrombus in the right internal jugular vein. Right subclavian, axillary, brachial, basilic, and cephalic veins are fully compressible with normal Doppler color flow and spectral tracings. IMPRESSION: Nonocclusive thrombus in the right internal jugular vein. Right subclavian, axillary, brachial, basilic, and cephalic veins are patent. This document has been electronically signed by: Vish Palacio MD on 08/21/2025 20:37:00 us Payal Rodriguez MD CV VASCULAR PROCEDURES Edited Re sult - Final * Vascular US duplex upper extremity arteries right with Doppler (08/21/2025 7:54 PM EST) Anatomical Region Laterality Modality Vascular, Abdomen Ultrasound 08/21/2025 9:10 PM EST Impressions 08/21/2025 9:10 PM EST Patent AV fistula with elevated velocities proximal to the anastomosis suggesting stenosis. Monophasic arterial waveforms distal to the graft. This can be seen in ischemic steal syndrome. Heterogeneous fluid collection adjacent to the fistula measuring 2.2 x 1.4 cm likely a small hematoma. This document has been electronically signed by: Vish Palacio MD on 08/21/2025 21:10:39 Narrative 08/21/2025 9:10 PM EST INDICATION: Complications of graft/stent Arterial duplex ultrasound right upper extremity Comparison: None provided Findings: Right axillary AV fistula loop graft is patent with elevated PSV proximal anastomosis (796.1 cm/sec) suggesting stenosis. Continuous, pulsatile, arterial blood flow with normal waveforms is identified from the subclavian artery through the proximal brachial artery. Mid to distal brachial artery, radial and ulnar artery monophasic waveforms. Heterogeneous fluid collection adjacent to the fistula measuring 2.2 x 1.4 cm likely a small hematoma. Procedure Note Vish Palacio MD - 08/21/2025 INDICATION: Complications of graft/stent Arterial duplex ultrasound right upper extremity Comparison: None provided Findings: Right axillary AV fistula loop graft is patent with elevated PSVproximal anastomosis (796.1 cm/sec) suggesting stenosis. Continuous, pulsatile, arterial blood flow with normal waveforms is identified from the subclavian artery through the proximal brachialartery. Mid to distal brachial artery, radial and ulnar artery monophasic waveforms. Heterogeneous fluid collection adjacent to the fistula measuring 2.2 x1.4 cm likely a small hematoma. IMPRESSION: Patent AV fistula with elevated velocities proximal to the anastomosis suggesting stenosis. Monophasic arterial waveforms distal to the graft. This can be seen in ischemic steal syndrome. Heterogeneous fluid collection adjacent to the fistula measuring 2.2 x1.4 cm likely a small hematoma. This document has been electronically signed by: Vish Palacio MD on 08/21/2025 21:10:39 us Payal Rodriguez MD CV VASCULAR PROCEDURES Final Res ult * Recheck blood typing (08/21/2025 6:10 PM EST) ABO Group O 08/21/2025 7:11 PM EST [facility] Rh Type Negative 08/21/2025 7:11 PM EST [facility] Blood Venous blood specimen / Unknown Venipuncture / Unknown 08/21/2025 6:10 PM EST 08/21/2025 6:16 PM EST us Payal Rodriguez MD LAB BLOOD BANK TEST ORDERABLES F inal Result [facility] [address] [place] [address], [place] [phone] * (ABNORMAL) CBC auto differential (08/21/2025 6:10 PM EST) Only the most recent of2 resultswithin the time period is included. [facility] WBC 7.4 4.8 - 10.8 K/mcL LAB HEMETOLOGY METHOD 08/21/2025 6:22 PM [facility] RBC 3.10(L) 3.80 - 4.80 M/mcL LAB HEMETOLOGY METHOD 08/21/2025 6:22 PM [facility] Hemoglobin 9.5(L) 11.5 - 16.0 g/dL LAB HEMETOLOGY METHOD 08/21/2025 6:22 PM [facility] Hematocrit 29.5(L) 35.0 - 47.0 % LAB HEMETOLOGY METHOD 08/21/2025 6:22 PM [facility] MCV 95.5 79.0 - 98.0 FL LAB HEMETOLOGY METHOD 08/21/2025 6:22 PM [facility] MCH 30.7 27.0 - 32.0 pcg LAB HEMETOLOGY METHOD 08/21/2025 6:22 PM [facility] MCHC 32.2 32.0 - 37.0 g/dL LAB HEMETOLOGY METHOD 08/21/2025 6:22 PM [facility] RDW 15.1(H) 11.0 - 15.0 % LAB HEMETOLOGY METHOD 08/21/2025 6:22 PM [facility] Platelets 181 130 - 400 K/mcL LAB HEMETOLOGY METHOD 08/21/2025 6:22 PM [facility] MPV 10.0 7.0 - 11.0 FL LAB HEMETOLOGY METHOD 08/21/2025 6:22 PM [facility] NRBC 0.0 <1.0 % LAB HEMETOLOGY METHOD 08/21/2025 6:22 PM [facility] NRBC Absolute 0.00 <0.10 K/mcL LAB HEMETOLOGY METHOD 08/21/2025 6:22 PM [facility] Neutrophils Relative 69.5 % LAB HEMETOLOGY METHOD 08/21/2025 6:22 PM [facility] Lymphocytes Relative 20.1 % LAB HEMETOLOGY METHOD 08/21/2025 6:22 PM [facility] Monocytes Relative 6.3 % LAB HEMETOLOGY METHOD 08/21/2025 6:22 PM [facility] Eosinophils Relative 3.3 % LAB HEMETOLOGY METHOD 08/21/2025 6:22 PM [facility] Basophils Relative 0.7 % LAB HEMETOLOGY METHOD 08/21/2025 6:22 PM [facility] Immature Granulocytes Relative 0.1 % LAB HEMETOLOGY METHOD 08/21/2025 6:22 PM [facility] Neutrophils Absolute 5.11 1.50 - 7.00 K/mcL LAB HEMETOLOGY METHOD 08/21/2025 6:22 PM [facility] Lymphocytes Absolute 1.48 1.00 - 5.00 K/mcL LAB HEMETOLOGY METHOD 08/21/2025 6:22 PM [facility] Monocytes Absolute 0.46 0.20 - 1.00 K/mcL LAB HEMETOLOGY METHOD 08/21/2025 6:22 PM [facility] Eosinophils Absolute 0.24 0.00 - 0.50 K/mcL LAB HEMETOLOGY METHOD 08/21/2025 6:22 PM [facility] Basophils Absolute 0.05 0.00 - 0.20 K/mcL LAB HEMETOLOGY METHOD 08/21/2025 6:22 PM [facility] Immature Granulocytes Absolute 0.01 0.00 - 0.03 K/mcL LAB HEMETOLOGY METHOD 08/21/2025 6:22 PM [facility] Blood Venous blood specimen / Unknown Venipuncture / Unknown 08/21/2025 6:10 PM EST 08/21/2025 6:16 PM EST us Payal Rodriguez MD LAB BLOOD ORDERABLES Final Resul t Performing Organization Address City/[facility]/ZIP Co de Phone Number [facility] [address] [place] [address], [place] [phone] * APTT (08/21/2025 6:10 PM EST) [facility] aPTT 33.9 24.1 - 39.3 sec LAB COAGULATION METHOD 08/21/2025 6:54 PM EST [facility] Blood Venous blood specimen / Unknown Venipuncture / Unknown 08/21/2025 6:10 PM EST 08/21/2025 6:15 PM EST us Payal Rodriguez MD LAB BLOOD ORDERABLES Final Resul t Performing Organization Address [facility] Co de Phone Number [facility] [address] [place] [address], [place] [phone] * Protime-INR (08/21/2025 6:10 PM EST) [facility] Protime 12.1 10.6 - 13.9 sec LAB COAGULATION METHOD 08/21/2025 6:54 PM EST [facility] INR 1.0 LAB COAGULATION METHOD 08/21/2025 6:54 PM EST [facility] Blood Venous blood specimen / Unknown Venipuncture / Unknown 08/21/2025 6:10 PM EST 08/21/2025 6:15 PM EST us Payal Rodriguez MD LAB BLOOD ORDERABLES Final Resul t Performing Organization Address City/[facility] Co de Phone Number [facility] [address] [place] [address], [place] [phone] * Type and Screen (08/21/2025 6:10 PM EST) ABO Group O 08/21/2025 7:06 PM EST [facility] Rh Type Negative 08/21/2025 7:06 PM EST [facility] Antibody Screen Negative 08/21/2025 7:06 PM [facility] Blood Venous blood specimen / Unknown Venipuncture / Unknown 08/21/2025 6:10 PM EST 08/21/2025 6:16 PM EST us Payal Rodriguez MD LAB BLOOD BANK TEST ORDERABLES F inal Result Performing Organization Address City/[facility]/ZIP Co de Phone Number [facility] [address] [place] [address], * Magnesium (08/21/2025 6:10 PM EST) Pathologist [facility] Magnesium 1.9 1.9 - 2.6 mg/dL 08/21/2025 6:42 PM EST [facility] Blood Venous blood specimen / Unknown Venipuncture / Unknown 08/21/2025 6:10 PM EST 08/21/2025 6:16 PM EST us Payal Rodriguez MD LAB BLOOD ORDERABLES Final Resul t Performing Organization Address [facility]/ZIP Co de Phone Number [facility] [address] [place] [address], [place] [phone] * (ABNORMAL) Venous blood gas (08/21/2025 6:10 PM EST) pH, Jorge 7.33 7.32 - 7.42 pH 08/21/2025 6:18 PM EST [facility] pCO2, Jorge 54(H) 41 - 51 mmHg 08/21/2025 6:18 PM EST [facility] pO2, Jorge 25 25 - 40 mmHg 08/21/2025 6:18 PM EST [facility] HCO3, Venous 25.3 22.0 - 26.0 mmol/L 08/21/2025 6:18 PM [facility] O2 Sat, Jorge 38.8 % 08/21/2025 6:18 PM [facility] Base Excess, Jorge 1.9 -2.0 - 2.0 mmol/L 08/21/2025 6:18 PM [facility] Blood Venous blood specimen / Unknown Venipuncture / Unknown 08/21/2025 6:10 PM EST 08/21/2025 6:15 PM EST us Payal Rodriguez MD LAB BLOOD ORDERABLES Final Resul t [facility] [address] [place] [address], [place] [phone] * (ABNORMAL) Comprehensive Metabolic Panel (CMP) (08/21/2025 6:10 PM EST) Sodium 138 133 - 145 mmol/L 08/21/2025 6:43 PM [facility] Potassium 3.8 3.5 - 5.5 mmol/L 08/21/2025 6:43 PM [facility] Chloride 97 96 - 110 mmol/L 08/21/2025 6:43 PM [facility] CO2 28 21 - 32 mmol/L 08/21/2025 6:43 PM [facility] Anion Gap 13(H) 3 - 11 08/21/2025 6:43 PM [facility] Glucose 182(H) 70 - 100 mg/dL 08/21/2025 6:43 PM [facility] BUN 57(H) 5 - 25 mg/dL 08/21/2025 6:43 PM [facility] Creatinine 5.65(H) 0.50 - 1.10 mg/dL 08/21/2025 6:43 PM [facility] eGFR 8(L) >=60 mL/min/1. 73m2 08/21/2025 6:43 PM [facility] Comment:Calculation based on the Chronic Kidney Disease Epidemiology Collaboration (CKD-EPI) equation refit without adjustment for race. BUN/Creatinine Ratio 10.1 08/21/2025 6:43 PM [facility] Calcium 7.9(L) 8.5 - 10.5 mg/dL 08/21/2025 6:43 PM [facility] AST (SGOT) 35 10 - 42 unit/L 08/21/2025 6:43 PM [facility] ALT (SGPT) 20 10 - 60 unit/L 08/21/2025 6:43 PM [facility] Alkaline Phosphatase 126(H) 42 - 121 unit/L 08/21/2025 6:43 PM [facility] Total Protein 6.5 6.0 - 8.0 g/dL 08/21/2025 6:43 PM [facility] Albumin 3.5 3.2 - 5.0 g/dL 08/21/2025 6:43 PM [facility] Total Bilirubin <0.2 0.0 - 1.4 mg/dL 08/21/2025 6:43 PM [facility] Blood Venous blood specimen / Unknown Venipuncture / Unknown 08/21/2025 6:10 PM EST 08/21/2025 6:16 PM EST us Payal Rodriguez MD LAB BLOOD ORDERABLES Final Resul t [facility] [address] [place] [address], * CO CRITICAL CARE 30-74 MINUTES (08/21/2025 4:53 PM EST) Narrative Payal Rodriguez MD - 08/21/2025 4:53 PM EST Payal Rodriguez MD 08/21/2025 8:28 PM Critical Care Performed by: Payal Rodriguez MD Authorized by: Payal Rodriguez MD Critical care provider statement: Critical care time (minutes): 35 Total face to face critical care time (minutes): 35 Critical care time was exclusive of: Separately billable procedures and treating other patients Critical care was necessary to treat or prevent imminent or life-threatening deterioration of the following conditions: Circulatory failure Critical care was time spent personally by me on the following activities: Development of treatment plan with patient or surrogate, discussions with consultants, evaluation of patient's response to treatment, ordering and review of laboratory studies, ordering and review of radiographic studies, re-evaluation of patient's condition, review of old charts, ordering and performing treatments and interventions and examination of patient I assumed direction of critical care for this patient from another provider in my specialty: no Care discussed with: admitting provider Comments: Concern for acute limb ischemia requiring IV heparin infusion and emergent surgery consultation. us Payal Rodriguez MD IN CLINIC/BEDSIDE ORDERABLES Fin al Result * (ABNORMAL) POCT Glucose, blood (08/07/2025 11:27 AM EST) Only the most recent of2 resultswithin the time period is included. Glucose POCT 194(H) 70 - 100 mg/dL 08/07/2025 11:28 AM EST [facility] Blood Capillary blood specimen / Unknown 08/07/2025 11:27 AM EST 08/07/2025 11:29 AM EST us Freddie Campoverde MD LAB POINT OF CARE TEST DOCKED DEVICE UNSOLICITED RESULTS Final Result [facility]) [facility] [address] [place] [address], * TH AN LMA(NO CHARGE) (08/07/2025 8:16 AM EST) Narrative Vern Leggett SRNA - 08/07/2025 8:16 AM EST MYLES Nunn 08/07/2025 8:20 AM General Information and Staff Patient location during procedure: OR Anesthesiologist: Juan Jimenez MD Resident/[employer]ING[employer] TEACHER: Yash Johnson CRNA Other anesthesia staff: MYLES [...] SUPRACLAVICULAR (NO CHARGE) (08/07/2025 7:37 AM EST) uJan Paredes MD - 08/07/2025 7:37 AM EST [...] supine Prep: ChloraPrep Patient monitoring: heart rate, environmental monitoring technician and continuous pulse ox Block type: supraclavicular [...] ANESTHESIA ORDERABLES Final Re sult * (ABNORMAL) Basic metabolic panel (08/07/2025 6:13 AM EST) Sodium 138 133 - 145 mmol/L LAB CHEMISTRY METHOD 08/07/2025 8:02 AM [facility] Potassium 4.7 3.5 - 5.5 mmol/L LAB CHEMISTRY METHOD 08/07/2025 8:02 AM [facility] Comment:Hemolysis present Chloride 103 96 - 110 mmol/L LAB CHEMISTRY METHOD 08/07/2025 8:02 AM [facility] CO2 30 21 - 32 mmol/L LAB CHEMISTRY METHOD 08/07/2025 8:02 AM [facility] Anion Gap 5 3 - 11 LAB CHEMISTRY METHOD 08/07/2025 8:02 AM [facility] Glucose 155(H) 70 - 100 mg/dL LAB CHEMISTRY METHOD 08/07/2025 8:02 AM [facility] BUN 35(H) 5 - 25 mg/dL LAB CHEMISTRY METHOD 08/07/2025 8:02 AM [facility] Creatinine 3.91(H) 0.50 - 1.10 mg/dL LAB CHEMISTRY METHOD 08/07/2025 8:02 AM [facility] eGFR 13(L) >=60 mL/min/1. 73m2 LAB CHEMISTRY METHOD 08/07/2025 8:02 AM [facility] Comment:Calculation based on the Chronic Kidney Disease Epidemiology Collaboration (CKD-EPI) equation refit without adjustment for race. BUN/Creatinine Ratio 9.0 LAB CHEMISTRY METHOD 08/07/2025 8:02 AM [facility] Calcium 8.9 8.5 - 10.5 mg/dL LAB CHEMISTRY METHOD 08/07/2025 8:02 AM [facility] Blood Venous blood specimen / Unknown Venipuncture / Unknown 08/07/2025 6:13 AM EST 08/07/2025 7:16 AM EST us Freddie Campoverde MD LAB BLOOD ORDERABLES Final Result [facility] [address] [place] [address], * PET CT Skull to Mid Thigh [...] Signed Date: 06/20/2025 15:16 ET Workstation ID: [id number] Transcribed By: Self Edit Transcribed Date: 06/20/2025 [...] Signed Date: 06/20/2025 15:16 ET Workstation ID: [id number] Transcribed By: Self Edit Transcribed Date: 06/20/2025 15:08 ET Calista Alcantara MD [facility] PROCEDURES Final Result from Last 3 Months Additional Health Concerns Active Problems Noted Date Diagnosed Date Autogenerated Problem 08/08/2025 Insurance [place]ICA[place] - [place] Advance Directives * Full Code - Default [...] currently active code status orders. Care Teams Speech Correction Assistant Relationship Specialty Start Date End Date Catherine Jon MD [address] [place] [phone] PCP - General Family Medicine 06/07/25
--- OUTSIDE RECORDS SUMMARY | 2025-08-28 17:15 | XMS_ITS | Encounter Summary ---
Author Organization [employer] Address [address] [facility] 7t [place] [address] Care Team Providers Care Floor Technician Name Role Phone Catherine Jon MD Primary Care Provider [phone] Kyle Velez RN Unavailable [phone] Isha Do Unavailable Kyle Velez RN Unavailable [phone] Mustapha Fritz Unavailable Encounter Details Date Type Department Care Team (Late st Contact Info) Description 06/21/2025 Orders Only [facility] [address] [place], [place] [phone] Provider, MD Karoline Social History Tobacco Use [...] on filedocumented in this encounter Care Teams Floor Technician Relationship Specialty Start Date End Date Catherine Jon MD 505 [place] [address] PCP - General Family Medicine 09/21/24 Kyle Velze, RN 505 [place] [address] Registered Nurse Family Medicine 06/15/25 08/10/25 Isha Do 06/15/25 08/10/25 Kyle Velez, RN [address] [place] [address] Registered Nurse Family Medicine 08/20/25 Mustapha Fritz 08/20/25 [facility] 07/26/24 Blaire Alcantara MD [facility] [address] [place] [address] [address] [place] [address] Medical Oncologist Hematology and Oncology 09/21/24 Jung Maxwell MD [facility] [address] [place] [address] [place] [address] Consulting Physician Urology 09/21/24 Bryant Ferro DO Consulting Physician Cardiology 09/21/24 [facility] [address] [place] [address] Consulting Physician Nephrology 09/21/24 Denilson Fay MD, PhD [facility] [address] [place] [address] Consulting Physician Ophthalmology 09/21/24 [employer], SOIL ENGINEER Agency [address] [place] [address] Personal Care Services 09/21/24 documented as of this encounter
--- OUTSIDE RECORDS SUMMARY | 2025-08-28 17:15 | XMS_ITS | Encounter Summary ---
Author Organization [employer] Address 75 [facility] 7t [place] [address] Care Team Providers Care Cutter First Name Role Phone Catherine Jon MD Primary Care Provider [phone] Kyle Velez RN Unavailable [phone] Mustapha Fritz Unavailable Reason for Visit * Reason Comments Care Coordination C3CM/W Mustapha Chavarria damaris, outreach #[email or web address] Encounter Details Date Type Department Care Team (Latest Contact Info) Description 08/27/2025 Patient Outreach [facility] [address] [place] [address] Catherine Jon MD [address] [place], [place] [phone] Care Coordination (C3CM/GABRIELW Mustapha Fritz outreach #[id number]) Social History Tobacco Use Types Packs/Day Years [...] encounter Progress Notes * Mustapha Fritz - 08/27/2025 10:36 AM EST CHW Mustapha Fritz, placed outbound call to patient to introduce [facility]3 Complex Care Program / SDOH support services. No answer at this time. CHW LVM introducing herself from [facility] CM Department with CHW's name, department and [...] Weekly blood pressure task No Peng Ng [place] Weekly blood pressure task Care Plan Weekly blood pressure task No Peng Ng [place] Weekly blood pressure task Care Plan Weekly blood pressure task No Peng Ng, [place] Patient has diabetic eye disease Care Plan Patient has diabetic eye disease No Peng Ng [place] Patient has diabetic eye disease Care Plan Patient has diabetic eye disease No Peng Ng [place] Patient has diabetic eye disease Care Plan Patient has diabetic eye disease No Peng Ng [place] Patient has [...] Patient has chronic kidney disease No Beronica uBrch RN Patient has [...] Plan Patient has chronic kidney disease No aMdelin Burch RN Patient has chronic kidney disease Care Plan Patient has chronic kidney disease No Madelin Burch RN Patient has chronic kidney disease Care Plan Patient has chronic kidney disease No Madelin Burch RN Weekly blood pressure task Care Plan Weekly blood pressure task No Haq, Ana Cristina, CONSUMER SALES REPRESENTATIVE Weekly blood pressure task Care Plan Weekly blood pressure task No Haq Ana Cristina, CONSUMER SALES REPRESENTATIVE Weekly blood pressure task Care Plan Weekly blood pressure task No Haq, Ana Cristina, CONSUMER SALES REPRESENTATIVE Patient has diabetic eye disease Care Plan Patient has diabetic eye disease No Haq, Ana Cristina, CONSUMER SALES REPRESENTATIVE Patient has diabetic eye disease Care Plan Patient has diabetic eye disease No Haq, Ana Cristina, CONSUMER SALES REPRESENTATIVE Patient has diabetic eye disease Care Plan Patient has diabetic eye disease No Haq, Ana Cristina, CONSUMER SALES REPRESENTATIVE Patient has chronic kidney disease Care Plan Patient has chronic kidney disease No Haq, Ana Cristina, CONSUMER SALES REPRESENTATIVE Patient has chronic kidney disease Care Plan Patient has chronic kidney disease No Haq, Ana Cristina, CONSUMER SALES REPRESENTATIVE Patient has chronic kidney disease Care Plan Patient has chronic kidney disease No Haq, Ana Cristina, CONSUMER SALES REPRESENTATIVE Weekly blood pressure task Care Plan Weekly [...] kidney disease 08/20/2025 Weekly blood pressure task 08/27/2025 Weekly blood pressure task 08/27/2025 Weekly blood pressure task 08/27/2025 Patient has diabetic eye disease 08/27/2025 Patient has diabetic eye disease 08/27/2025 Patient has diabetic eye disease 08/27/2025 Patient has chronic kidney disease 08/27/2025 Patient has chronic kidney disease 08/27/2025 Patient has chronic kidney disease 08/27/2025 Assessment Noted Time PHQ-9 Depression Total Score: 14 025 2:01 PM EST documented as of this encounter Care Teams Cutter First Relationship Specialty Start Date End Date Catherine Jon MD [address] [place] [address] PCP - General Family Medicine 09/21/24 Kyle Velez, RN [address] [place] [address] Registered Nurse Family Medicine 08/20/25 Juliann Fritzaemlia 08/20/25 [facility] 07/26/24 Blaire Alcantara MD [facility] [address] [facility] [address] [place] [address] Medical Oncologist Hematology and Oncology 09/21/24 Jung Maxwell MD [facility] [address] [place] [address] [place] [address] Consulting Physician Urology 09/21/24 Bryant Ferro DO Consulting Physician Cardiology 09/21/24 [facility] [address] [place] [address] Consulting Physician Nephrology 09/21/24 Denilson Fay MD, PhD [facility] [address] [place], [place] [phone] Consulting Physician Ophthalmology 09/21/24 [employer], MEDICAL CLAIMS REPRESENTATIVE Agency [address] [place], [place] [phone] Personal Care Services 09/21/24 documented as of this encounter
--- OUTSIDE RECORDS SUMMARY | 2025-08-28 17:15 | XMS_ITS | Encounter Summary ---
Author Organization [employer] Address 75 [facility] 7t h Floor [place] [id number] Care Team Providers Care Manager Child Name Role Phone Catherine Jon MD Primary Care Provider [phone] Kyle Velez RN Unavailable [phone] Isha Do Unavailable Kyle Velez RN Unavailable [phone] Mustapha Fritz Unavailable Encounter Details Date Type Department Care Team (Late st Contact Info) Description 11/23/2022 Orders Only [facility] [address] [place], [place] [phone] Ana Cristina Haq LPN Social History Tobacco [...] filedocumented in this encounter Care Teams Manager Child Relationship Specialty Start Date End Date Catherine Jon MD 505 [place] [address] PCP - General Family Medicine 09/21/24 Kyle Velez, RN [address] [place] [address] Registered Nurse Family Medicine 06/15/25 08/10/25 Isha Do 06/15/25 08/10/25 Kyel Velez, RN [address] [place] [address] Registered Nurse Family Medicine 08/20/25 Mustapha Fritz 08/20/25 [facility] 07/[facility]24 Blaire Alcantara MD [facility] [address] [place] [address] [address] [place] [address] Medical Oncologist Hematology and Oncology 09/21/24 uJng Maxwell MD [facility] [address] [place] [address] [place] [address] Consulting Physician Urology 09/21/24 Bryant Ferro DO Consulting Physician Cardiology 09/21/24 [facility] [address] [place] [address] Consulting Physician Nephrology 09/21/24 Denilson Fay MD, PhD [facility] [address] [place] [address] Consulting Physician Ophthalmology 09/21/24 [employer], CUTTER OPERATOR TILE Agency [address] [place] [address] Personal Care Services 09/21/24 documented as of this encounter
--- OUTSIDE RECORDS SUMMARY | 2025-08-28 17:15 | XMS_ITS | Encounter Summary ---
Author Organization [employer] Address 75 [facility] 7t [place] [address] Care Team Providers Care Order Editor Name Role Phone Catherine Jon MD Primary Care Provider [phone] Kyle Velez RN Unavailable [phone] Isha oD Unavailable Kyle Velez RN Unavailable [phone] Mustapha Fritz Unavailable Reason for Visit * Reason Comments Med Refill Encounter Details Date Type Department Care Team (Late st Contact Info) Description 09/18/2024 Refill [facility] [address] [place], [place] [phone] Anne Talamantes DO 230 [place], [place] [phone] Social History Tobacco Use Types Packs/Day Years [...] on filedocumented in this encounter Care Teams Order Editor Relationship Specialty Start Date End Date Catherine Jon MD 505 [place] [address] PCP - General Family Medicine 09/21/24 Kyle Velez RN 505 [place] [address] Registered Nurse Family Medicine 06/15/25 08/10/25 Isha Do 06/15/25 08/10/25 Kyle Velez RN [address] [place] [address] Registered Nurse Family Medicine 08/20/25 Mustapha Fritz 08/20/25 [facility] 07/26/24 Blaire Alcantara MD [facility] [address] [place] [address] [address] [place] [address] Medical Oncologist Hematology and Oncology 09/21/24 Jung Maxwell MD [facility] [address] [place] [address] [place] [address] Consulting Physician Urology 09/21/24 Bryant Ferro DO Consulting Physician Cardiology 09/21/24 [facility] [address] [place] [address] Consulting Physician Nephrology 09/21/24 Denilson Fay MD, PhD [facility] [address] [place] [address] Consulting Physician Ophthalmology 09/21/24 [employer], ORDER CHECKER PACKER PROCESSER Agency [address] [place] [address] Personal Care Services 09/21/24 documented as of this encounter
--- OUTSIDE RECORDS SUMMARY | 2025-08-28 17:15 | XMS_ITS | Encounter Summary ---
Author Organization [employer] Address 75 [facility] 7t h Floor [place] [phone] Care Team Providers Care Manager Training And Development Name Role Phone Catherine Jon MD Primary Care Provider [phone] Kyle Velez RN Unavailable [phone] Isha Do Unavailable Kyle Velez RN Unavailable [phone] Mustapha Fritz Unavailable Encounter Details Date Type Department Care Team (Late st Contact Info) Description 09/24/2022 Orders Only [facility] 230 [place], [place] [phone] Lydia Haq RN Social History Tobacco Use [...] filedocumented in this encounter Care Teams Manager Training And Development Relationship Specialty Start Date End Date Catherine Jon MD [address] [place] [address] PCP - General Family Medicine 09/21/24 Kyle Velez, RN [address] [place], [place] [phone] Registered Nurse Family Medicine 06/15/25 08/10/25 Isha Do 06/15/25 08/10/25 Kyle Velez, RN [address] [place] [address] Registered Nurse Family Medicine 08/20/25 Mustapha Fritz 08/20/25 [facility] 07/26/24 Blaire Alcantara MD [facility] [address] [place] [address] [address] [place] [address] Medical Oncologist Hematology and Oncology 09/21/24 Jung Maxwell MD [facility] [address] [place] [address] [place] [address] Consulting Physician Urology 09/21/24 Bryant Ferro DO Consulting Physician Cardiology 09/21/24 [facility] [address] [place] [address] Consulting Physician Nephrology 09/21/24 Denilson Fay MD, PhD [facility] [address] [place], [place] [phone] Consulting Physician Ophthalmology 09/21/24 [employer], CUSTOMS AND BORDER PROTECTION INSPECTOR Agency [address] [place] [address] Personal Care Services 09/21/24 documented as of this encounter
--- OUTSIDE RECORDS SUMMARY | 2025-08-28 17:15 | XMS_ITS | Encounter Summary ---
Author Organization [employer] Address 75 [facility] 7t [place] [address] Care Team Providers Care Program Architect Name Role Phone Catherine Jon MD Primary Care Provider [phone] Kyle Velez RN Unavailable [phone] Isha Do Unavailable Kyle Velez RN Unavailable [phone] Mustapha Fritz Unavailable Reason for Visit * Reason Comments Med Refill Encounter Details Date Type Department Care Team (Late st Contact Info) Description 11/08/2024 Refill [facility] 230 [place], [place] [phone] Anne Talamantes DO 230 [place], [place] [phone] Social History Tobacco Use Types Packs/Day Years [...] filedocumented in this encounter Care Teams Program Architect Relationship Specialty Start Date End Date Catherine Jon MD 505 [place] [address] PCP - General Family Medicine 09/21/24 Kyle Velez RN 505 [place] [address] Registered Nurse Family Medicine 06/15/25 08/10/25 sIha Do 06/15/25 08/10/25 Kyle Velez RN [address] [place] [address] Registered Nurse Family Medicine 08/20/25 Mustapha Frtiz 08/20/25 [facility] 07/26/24 Blaire Alcantara MD [facility] [address] [place] [address] [address] [place] [address] Medical Oncologist Hematology and Oncology 09/21/24 Jung Maxwell MD [facility] [address] [place] [address] [place] [address] Consulting Physician Urology 09/21/24 Bryant Ferro DO Consulting Physician Cardiology 09/21/24 [facility] [address] [place] [address] Consulting Physician Nephrology 09/21/24 Denilson Fay MD, PhD [facility] [address] [place] [address] Consulting Physician Ophthalmology 09/21/24 [employer], SERVICENOW ADMINISTRATOR Agency [address] [place] [address] Personal Care Services 09/21/24 documented as of this encounter
--- OUTSIDE RECORDS SUMMARY | 2025-08-28 17:15 | XMS_ITS | Clinical Summary ---
Author Organization [employer] Address [address] [facility] [address] [place] [address] Care Team Providers Care Powertrain Engineer Name Role Phone Catherine Jon MD Primary Care Provider [phone] Kyle Velez RN Unavailable [phone] Mustapha Fritz Unavailable Allergies No known active allergies Medications Blood Glucose Monitoring Suppl (CleanFishStyle [place]ford Lite) w/Device kit Use to test blood [...] sugar. 50 tablet 024 Active Continuous Glucose Splicer Apprentice (FreeStyle Gary 2 Grover) device Scan sensor every 8 hours 1 each 024 Active Alcohol Swabs (Alcohol Prep) 70 % padsIndications: Type 2 diabetes mellitus with other specified complication, unspecified whether clinical cytopathologist insulin use (HCC) Test blood glucose QID 100 each 11 025 Active Senna S 8.6-50 MG tablet Take 1 tablet by mouth if needed at bedtime for constipation. 30 tablet 1 025 Active Pentips Generic Pen [place] 32G X 4 MM misc USE DIRECTED [...] nephropathy, with long-term current use of insulin ([facility]) Use to monitor TID 150 strip 7 [...] diabetes mellitus with diabetic neuropathy, unspecified whether clinical cytopathologist insulin use ([facility]) Take 1 tablet (50 mg) by mouth [...] 2 diabetes mellitus with hyperglycemia, unspecified whether clinical cytopathologist insulin use (HCC) INJECT 8-18 UNITS SUBCUTANEOUSLY THREE TIMES DAILY BEFORE BREAKFAST DIRECTED 15 mL 2 Active omeprazole (PriLOSEC) [address] capsule Take 1 capsule (20 mg) by mouth before breakfast and before evening meal. Do not crush or chew. 180 capsule Active Trulicity 1.5 MG/0.5ML solution pen-injectorIndi cations:Type 2 diabetes mellitus with other specified complication, with long-term current use of insulin ([facility]) INJECT ONE PEN (=1.5MG) SUBCUTANEOUSLY ONCE A WEEK DIRECTED 2 mL 023 2024 Discontinued(T herapy completed) FREESTYLE LITE test stripIndications :Type 2 diabetes mellitus with diabetic nephropathy, with long-term current use of insulin ([facility]) TEST BLOOD SUGAR SIX TIMES [...] Continuous Glucose Sensor (FreeStyle Gary 2 Sensor) [facility] [place] 1 sensor every 14 days 2 each 024 2024 Discontinued(R eorder (will not trigger notification to Pharmacy)) hydrALAZINE (Apresoline) 10 MG tabletIndication s:Essential hypertension Take 1 tablet (10 mg) by mouth 2 times daily. 60 tablet 11 2024 Discontinued(T herapy completed) insulin lispro (HumaLOG) 100 UNIT/ML injectionIndicat ions:Type 2 diabetes mellitus with hyperglycemia, unspecified whether clinical cytopathologist insulin use (HCC) INJECT 8-18 UNITS SUBCUTANEOUSLY [...] eorder (will not trigger notification to Pharmacy)) omeprazole (PriLOSEC) [address] capsule Take [...] diabetes mellitus with diabetic neuropathy, unspecified whether clinical cytopathologist insulin use (HCC) TAKE 1 TABLET BY MOUTH AT BEDTIME 30 tablet 1 2024 Discontinued(R eorder (will not trigger notification to Pharmacy)) Eliquis 2.5 MG tablet TAKE 1 TABLET BY MOUTH TWICE DAILY IN THE MORNING AND IN THE EVENING 60 tablet 5 025 2024 Discontinued(R eorder (will not trigger notification to Pharmacy)) hydrALAZINE (Apresoline) 25 MG tablet Take 1 tablet (25 mg) by mouth 3 times daily. 90 tablet 3 025 2024 Discontinued(R eorder (will not trigger notification to Pharmacy)) pregabalin (Lyrica) 25 MG capsuleIndicatio ns:Peripheral polyneuropathy Take 1 capsule (25 mg) by mouth 3 times daily. 90 capsule 2 025 2024 Discontinued(R eorder (will not trigger [...] cont following with hematology Vascular problem 09/21/2024 shelter current use of insulin (CMS/[facility]) 09/21 Pacemaker 09/21/2024 Progressive macular hypomelanosis 09/21/2024 [...] BS numbers. Advised to follow up with Tire Builder Operator to restart Farxiga. Ordering lab work for further evaluation. Advised to bring paperwork for Advanced Directives next visit. Follow up in 4 months. Encounters Date Type Department Care Team Description 08/27/2025 Patient Outreach [facility] [address] [place] [phone] Catherine Jon MD Care Coordination ([facility] Mustapha Fritz, outreach #2_lvm) 08/21/2025 Orders Only GENERIC EXTERNAL DATA DEPARTMENT Provider, Generic External Data 08/20/2025 Patient Outreach [address] [phone] Catherine Jon MD Care Coordination ([facility] Mustapha Fritz, initial outreach_lvm) 08/20/2025 Patient Outreach [address] [address] Catherine Jon MD Care Coordination ([facility] Mustapha Fritz, Chart review ) 08/20/2025 Telephone [facility] [address] [place] [phone] Catherine Jon MD ER Follow-up 08/20/2025 Patient Outreach [facility] [address] [place] [phone] Catherine Jon MD Care Coordination ([facility]- chart review) 08/20/2025 Patient Outreach [address] [address] Catherine Jon MD 08/18/2025 Refill [facility] [address] [place] [phone] Catherine Jon MD Type 2 diabetes mellitus with hyperglycemia, unspecified whether group home insulin use (HCC) 08/17/2025 Telephone [facility] [address] [place] [phone] Lanette Bird, RN 08/17/2025 Orders Only GENERIC EXTERNAL DATA DEPARTMENT Provider, Generic External Data 08/16/2025 3:30 PM EST Office Visit [facility] [address] [place] [address] Catherine Jon MD Gross hematuria (Primary Dx); Colon cancer screening; Encounter for health-related screening; Type 2 diabetes mellitus with diabetic nephropathy, with long-term current use of insulin (HCC); Peripheral polyneuropathy; Type 2 diabetes mellitus with diabetic neuropathy, unspecified whether group home insulin use (HCC); Type 2 diabetes mellitus with hyperglycemia, unspecified whether group home insulin use (HCC) 08/16/2025 Telephone [facility] [address] [place] [address] Catherine Jon MD 08/16/2025 Travel 08/10/2025 Patient Outreach [address] [address] Catherine Jon MD Care Coordination (C3 -[facility] telephone call outreach) 08/06/2025 Telephone [facility] [address] [place] [address] Catherine Jon MD 08/03/2025 Patient Outreach [address] [address] Catherine Jon MD Care Coordination ([facility] telephone call outreach) 08/03/2025 Patient Outreach [address] [address] Catherine Jon MD Care Coordination (C3 -[facility] telephone call outreach) 08/02/2025 1:45 PM EST Office Visit [facility] [address] [place] [address] Catherine Jon MD Decreased pedal pulses (Primary Dx); Type 2 diabetes mellitus with diabetic nephropathy, with long-term current use of insulin (HCC); Peripheral polyneuropathy; Osteoarthritis of right knee, unspecified osteoarthritis type 08/02/2025 Travel 08/01/2025 Telephone [facility] [address] [place] [address] Catherine Jon MD Chart Prep 07/27/2025 Patient Outreach [address] [address] Catherine Jon MD [facility] telephone call outreach) 07/22/[address] [address] Catherine Jon MD Type 2 diabetes mellitus with diabetic neuropathy, unspecified whether group home insulin use (HCC) 07/20/2025 Patient Outreach [address] [address] Catherine Jon MD Care Coordination (C3 [facility] Do telephone call outreach) 07/13/2025 Patient Outreach [address] [address] Catherine Jon MD Care Coordination ([facility]3 [facility] Do telephone call outreach) 07/04/2025 Patient Outreach [address] [address] Catherine Jon MD Care Coordination (C3 [facility] Isha Do telephone call outreach) 06/29/[address] [address] Anne Talamantes DO Diabetic nephropathy associated with type 2 diabetes mellitus (HCC) 06/21/2025 [facility] Health Information Management [address] [place] [phone] Karoline Portillo MD 06/19/2025 Patient Outreach [address] [address] Catherine Jon MD Transition Of Care (Tcm) ([facility] unscheduled) 06/18/2025 Patient Outreach [address] [address] Catherine Jon MD 06/18/[address] [address] Catherine Jon MD No Show 06/18/2025 Patient Outreach [address] [address] Catherine Jon MD Transition Of Care (Tcm) (F unscheduled) 06/15/2025 Patient Outreach [address] [address] Catherine Jon MD Care Coordination (C3 [facility] Isha Do chart review) 06/15/2025 Patient Outreach [facility] [address] [place] [phone] Catherine Jon MD Care Coordination ([facility]- chart review) 06/15/2025 Patient Outreach [facility] [address] [facility], [place] [phone] Catherine Jon MD 06/05/2025 Refill [facility] [address] [facility], [place] [phone] Catherine Jon MD from Last 3 Months [...] has chronic kidney disease No Peng Ng [place] Patient has chronic kidney disease Care Plan [...] blood pressure task No Haq, Ana Cristina, CONCRETE BLOCK MAKER Patient has diabetic eye disease Care Plan Patient has diabetic eye disease No Haq, Ana Cristina, CONCRETE BLOCK MAKER Patient has diabetic eye disease Care Plan Patient has diabetic eye disease No Haq, Ana Cristina, CONCRETE BLOCK MAKER Patient has diabetic eye disease Care Plan Patient has diabetic eye disease No Haq, Ana Cristina, CONCRETE BLOCK MAKER Patient has chronic kidney disease Care Plan Patient has chronic kidney disease No Haq, Ana Cristina, CONCRETE BLOCK MAKER Patient has chronic kidney disease Care Plan Patient has chronic kidney disease No Haq, Ana Cristina, CONCRETE BLOCK MAKER Patient has chronic kidney disease Care Plan Patient has chronic kidney disease No Haq, Ana Cristina, CONCRETE BLOCK MAKER Weekly blood pressure task Care Plan Weekly [...] Plan Patient has diabetic eye disease No Lam, Mustapha Patient has diabetic eye disease Care Plan Patient has diabetic eye disease No Lam, Mustapha Patient has chronic kidney disease Care Plan Patient has chronic kidney disease No Lam, Mustapha Patient has chronic kidney disease Care Plan Patient has chronic kidney disease No Lam, Mustapha Patient has chronic kidney disease Care Plan Patient has chronic kidney disease No Mustapha Fritz Weekly blood pressure task Care Plan Weekly blood pressure task No Colon, Liz Weekly blood pressure task Care Plan Weekly blood pressure task No Colon, Liz Weekly blood pressure task Care Plan Weekly blood pressure task No Colon, Liz Patient has diabetic eye disease Care Plan Patient has diabetic eye disease No Colon, Liz Patient has diabetic eye disease Care Plan Patient has diabetic eye disease No Colon, Liz Patient has diabetic eye disease Care Plan Patient has diabetic eye disease No Colon, Liz Patient has chronic kidney disease Care Plan Patient has chronic kidney disease No Colon, Liz Patient has chronic kidney disease Care Plan Patient has chronic kidney disease No Colon, Liz Patient has chronic kidney disease Care Plan Patient has chronic kidney disease No Colon, Liz Procedures Procedure Name Priority Date/Time Associated Diagnosis [...] Blood Count 8.9 4.8 - 10.8 X10*3/uL [facility] Red Blood Count 3.59(L) 4.20 - 5.50 X10*6/uL [facility] Hemoglobin 11.0(L) 12.0 - 16.0 g/dl [facility] Hematocrit 34.6(L) 37.0 - 47.0 % [facility] Mean Corpuscular Volume 96.4 80.0 - 98.0 fL [facility] Mean Corpuscular Hemoglobin 30.6 27.0 - 33.0 pg [facility] Mean Corpuscular HGB Conc 31.8 31.0 - 35.0 g/dl [facility] Red Cell Distribution Width 15.1 11.0 - 16.0 % [facility] Platelet Count 215 160 - 400 X10*3/uL [facility] Mean Platelet Volume 10.0 9.4 - 12.3 fL [facility] Neutrophils Percent Auto 72.3 45 - 73 % [facility] Imm Gran Pct Auto 0.2 0.0 - 0.4 % [facility] Lymphocytes Percent Auto 18.2(L) 20 - 40 % [facility] Monocytes Percent Auto 5.9 2 - 11 % [facility] Eosinophils Percent Auto 2.8 0 - 4 % [facility] Basophils Percent Auto 0.6 0 - 2 % [facility] NRBC Pct Auto 0.0 0.0 - 0.2 /100WBC [facility] Neutrophils Absolute Auto 6.4 2.0 - 8.3 x10*3/uL [facility] Imm Gran Abs Auto 0.02 0.00 - 0.03 X10*3/uL [facility] Lymphocytes Absolute Auto 1.6 1.2 - 4.9 X10*3/uL [facility] Monocytes Absolute Auto 0.5 0.1 - 1.2 X10*3/uL [facility] Eosinophils Absolute Auto 0.3 0.0 - 0.4 X10*3/uL [facility] Basophils Absolute Auto 0.1 0.0 - 0.2 X10*3/uL [facility] NRBC Abs Auto 0.000 0.0 - 0.012 X10*3/uL [facility] 08/21/2025 3:14 PM EST 08/21/2025 3:16 PM EST us Generic External Data Provider LAB BLOOD ORDERAB LES Final Result Performing Organization Address City/State/[facility] de Phone Number [facility] [address] [place] [phone] Partial Thromboplastin Time, Activated (APTT) (08/21/2025 3:14 PM EST) Only the most recent of2 resultswithin the time period is included. Partial Thromboplastin Time 31.4 26.7 - 34.1 SEC [facility] 08/21/2025 3:14 PM EST 08/21/2025 3:16 PM EST Generic External Data Provider LAB BLOOD ORDERAB LES Final Result Performing Organization Address [facility] Phone Number [facility] [address] [place] [phone] * Prothrombin Time-INR (08/21/2025 3:14 PM EST) Only the most recent of2 resultswithin the time period is included. Prothrombin Time 13.3 11.2 - 13.5 SEC [facility] INTERNATIONAL NORM RATIO 1.1 0.9 - 1.1 [facility] Comment:INTERNATIONAL NORMAL IZED RATIO [...] 3:14 PM EST 08/21/2025 3:16 PM EST Generic External Data Provider LAB BLOOD ORDERAB LES Final Result Performing Organization Address [facility] Co de Phone Number [facility] [address] [place] [phone] * (ABNORMAL) Comprehensive Metabolic Panel (08/21/2025 3:14 PM EST) Only the most recent of2 resultswithin the time period is included. Sodium 139 135 - 145 mmol/L [facility] Potassium 4.0 3.3 - 5.1 mmol/L [facility] Chloride 99 96 - 108 mmol/L [facility] Carbon Dioxide 29 22 - 29 mmol/L [facility] Anion Gap 15 12 - 20 [facility] Urea Nitrogen (BUN) 52(H) 9 - 16 mg/dL [facility] Creatinine, Serum 5.80(HH) 0.5 - 1.4 mg/dL [facility] Comment:Critical value for t est(s): CREA Results called to and readback by: EMBER Person calling: [id number] Date: 08/21/25Time: 1537 Creatinine Clr Calc Pharmacy 8.7 [facility] Comment:Provided height and weight: 154.94 cm,64.2 kg.eGFR (calculated from the MDRD study equation) and eCrCl(calculated from the Cockcroft-Gault equation) are based ondifferent parameters and may not yield comparable results.If eCrCl result is absurd, please check patient'sheight/weight. Estimated Glomerular Filt Rate 7 [facility] Comment:Chronic Kidney Disea se: Estimated GFR < 60 mL/min/1.15d3Uevtcd Kidney Disease: Estimated GFR < 15 mL/min/1.73m2 Glucose 163(H) 60 - 115 mg/dL [facility] Calcium 8.8 8.4 - 10.2 mg/dL [facility] Bilirubin, Total 0.2 0.0 - 1.0 mg/dL [facility] Aspartate Amino Transferase 42(H) 5 - 31 U/L [facility] Alanine Aminotransferase 24 0 - 31 U/L [facility] Total Protein 7.7 6.5 - 8.0 g/dL [facility] Albumin Level 4.2 3.5 - 5.0 g/dL [facility] Alkaline Phosphatase 135(H) 39 - 117 U/L [facility] 08/21/2025 3:14 PM EST 08/21/2025 3:16 PM EST us Generic External Data Provider LAB BLOOD ORDERAB LES Final Result Performing Organization Address City/State/[facility] Co de Phone Number [facility] [address] [place] [phone] * Vascular US upper extremity venous duplex right (08/21/2025 1:32 PM EST) 08/21/2025 1:32 PM EST Narrative [facility] - 08/21/2025 3:41 PM EST [place] [address] Ultrasound Report Signed Patient: Jazmine Max MR#: [id number] : 1965 Acct:[id number] Age/Sex: 59 / F ADM Date: 08/21/25 Loc: HO.US Attending Dr: Calista Alcantara MD Ordering Physician: Calista Alcantara MD Date of Service: 08/21/25 Procedure(s): US venous duplex UE RT Accession Number(s): [id number] cc: Claista Alcantara MD; Catherine Jon MD Reason for [...] were communicated to Dr. Alcantara by the research food technologist at the completion of the exam on 08/21/2025 at 1452 and the patient was instructed to go to the emergency room. Electronically signed by: Marilynn Causey MD 08/21/2025 03:38 PM EST Dictated By: Marilynn Causey MD Signed By: <Electronically signed by Marilynn Causey MD in OV> 08/21/25 1538 DD/ 1332 TD/TT: 08/21/25 1445 Monorail Helper: JOSE Procedure Note Donotuseinterpreter, Image - 08/21/2025 [place] [address] Ultrasound Report Signed Patient: Jazmine MaxMR#: [id number] : 1965Acct:[id number] Age/Sex: 59 / FADM Date: 08/21/25 Loc: .US Attending Dr: Calista Alcantara MD Ordering Physician: Calista Alcantara MD Date of Service: 08/21/25 Procedure(s): US venous duplex UE RT Accession Number(s): [id number] cc: Calista Alcantara MD; Catherine Jon MD [...] were communicated to Dr. Alcantara by the research food technologist at the completion of the exam on 08/21/2025 at 1452 and the patient was instructed to go to the emergency room. Electronically signed by: Marilynn Causey MD 08/21/2025 03:38 PM EST Dictated By: Marilynn Causey MD Signed By: <Electronically signed by Marilynn Causey MD in OV> 08/21/25 1538 DD/ 1332 TD/TT: 08/21/25 1445 Monorail Helper: JOSE [facility] External Provider CV VASC ULAR PROCEDURES Final Result [facility] [address] [place] [address] * Culture, Urine, Routine (08/17/2025 7:05 PM EST) Only the most recent of2 resultswithin the time period is included. Urine Urine specimen obtained by clean catch procedure / Unknown 08/17/2025 7:05 PM EST 08/17/2025 7:05 PM EST Comment:[facility] Narrative [facility] - 08/19/2025 10:30 AM EST Urine Culture Report Result Urine Culture 10,000 to 50,000 cfu/ml Urine Culture Mixed bacterial michael characteristic of Urine Culture urogenital contamination. Specimen Source: Urine clean catch Generic External Data Provider LAB MICROBIOLOGY - GENERAL ORDERABLES Final Result Performing Organization Address City/[facility]/ZIP Co de Phone Number [facility] [address] [place] [phone] [phone] * (ABNORMAL) Urinalysis, Complete, with Reflex to Culture (08/17/2025 6:44 PM EST) Only the most recent of2 resultswithin the time period is included. Color Urine Yellow [facility] Appearance Urine Cloudy [facility] PH 6.5 5.0 - 9.0 [facility] Glucose Urine UA 250(A) Negative mg/dL [facility] Urine Blood Large (3+)(A) Negative [facility] Specific [place] - Urine 1.015 1.005 - 1.025 [facility] Urine Protein 300 (3+)(A) Neg-Trace mg/dL [facility] Urine Ketones Negative Negative mg/dL [facility] Nitrite Urine Negative Negative [facility] Leukocyte Esterase Urine Moderate (2+)(A) Negative [facility] RBC Urine >20(A) 0 - 2 /HPF [facility] Urine WBC 21-50(A) 0 - 5 /HPF [facility] Urine Squamous Epithelial Cell 11-20 0 - 2 /HPF [facility] Urine Bacteria 3+ None Seen [facility] Hyaline Casts, Urine 0-2 0 - 2 /LPF [facility] 08/17/2025 6:44 PM EST 08/17/2025 6:50 PM EST Narrative [facility] - 08/17/2025 7:05 PM EST Urine, Clean Catch us Generic External Data Provider LAB URINE ORDERAB LES Final Result Performing Organization Address [facility]/ZIP Co de Phone Number [facility] [address] [place] [phone] * (ABNORMAL) POCT Hgb A1c (08/02/2025 [...] to 5OO mg/dL Cholesterol 146 <200 mg/dL [facility] Comment:Desirable Cholestero l: less than 200 mg/dLBorderline High Cholesterol: 200-239 mg/dLHigh Cholesterol: greater than 239 mg/dL LDL Cholesterol Calculated 69 <100 mg/dL [facility] Comment:Desirable LDL: less than 100 mg/dLNear Optimal/Above Optimal LDL: 110- 129 mg/dLBorderline High LDL: 130-159 mg/dLHigh LDL: 160-189 mg/dLVery High LDL: greater than or equal to 190 mg/dL HDL Cholesterol 37(L) >40 mg/dL [facility] Comment:Desirable HDL: great er than 40 mg/dL Note: This HDL assay may give artificially low results in patients with liver disease. Blood Venous blood specimen / Unknown 03/03/2024 1:43 PM EDT 03/03/2024 3:58 PM EDT us Aby Vazquez MD LAB BLOOD ORDERABLES Final Resul t [facility] [address] [place] [phone] * BI Mammogram Screening Tomosynthesis Bilateral (02/25/2024 3:03 PM EDT) Anatomical Region Laterality Modality Breast Bilateral Mammography 02/25/2024 3:03 PM EDT Narrative 03/21/2024 4:41 PM EDT [facility] [address] [place] [address] Mammography Report Signed Patient: Jazmine Max MR#: [id number] : 1965 Acct:[id number] Age/Sex: 58 / F ADM Date: 02/25/24 Loc: HO.MAMMO Attending Dr: Anne Talamantes DO Ordering Physician: Anne Talamantes DO Results: 1N egative Date of Service: 02/25/24 Follow Up: 1 Year From [facility] Mammogram Procedure(s): MM tomosynthesis screening BI Accession Number(s): [id number] cc: Anne Talamantes DO EXAMINATION: MM SCREENING [...] in OV> 03/21/24 1637 DD/ 1503 TD/TT: Monorail Helper: Procedure Note Donotuseinterpreter, Image - 03/21/[facility] [address] [place] [address] Mammography Report Signed Patient: Jazmine MaxMR#: [id number] : 1965Acct:[id number] Age/Sex: 58 / FADM Date: 02/25/24 Loc: BRITTNEEO Attending Dr: Anne Talamantes DO Ordering Physician: Anne Talamantesults: 1N egative Date of Service: 02/25/24Follow Up: 1 Year From Orig inal Mammogram Procedure(s): MM tomosynthesis screening BI Accession Number(s): [id number] cc: Anne Talamantes DO EXAMINATION: MM SCREENING [...] in OV> 03/21/24 1637 DD/ 1503 TD/TT: Monorail Helper: Anne Talamantes DO IMG BI PROCEDURES Final Resu lt * HPV mRNA E6/E7 REFLEX TO HPV 16, 18/45 (11/22/2020 12:00 AM EST) HPV nRNA E6/E7 Not Detected Not Detected [facility] Comment: Methodology: Change Analyst-Mediated Amplification This assay detects E6/E7 viral messenger RNA (mRNA) from 14 high-risk HPV types (16,18,31,33,35,39,45,51,52,56,58,59,66,68). The analytical performance characteristics of this assay have been determined by [employer]. The modifications have not been cleared or approved by the FDA. This assay has been validated pursuant to the CLIA regulations and is used for clinical purposes. For additional information, please refer to http://education.Mocavo/ROW451i7 (This link if provided for information/ educational purposes only.) 11/22/2020 Anne Talamantes DO LAB CYTOLOGY ORDERABLES Jolanta l Result [facility] [address] [place] [address], * Hm Colonoscopy (03/08/2019 11:49 AM EDT) [...] 08/27/2025 Patient has chronic kidney disease 08/27/2025 Weekly blood pressure task 08/28/2025 Weekly blood pressure task 08/28/2025 Weekly blood pressure task 08/28/2025 Patient has diabetic eye disease 08/28/2025 Patient has diabetic eye disease 08/28/2025 Patient has diabetic eye disease 08/28/2025 Patient has chronic kidney disease 08/28/2025 Patient has chronic kidney disease 08/28/2025 Patient has chronic kidney disease 08/28/2025 Insurance [facility] C3 * Guarantor: Jazmine Max Account Type Relation to Patient Date of Phone Billing Address Personal/[place] [address] Care Teams Powertrain Engineer Relationship Specialty Start Date End Date Catherine Jon MD [address] [place] [address] PCP - General Family Medicine 09/21/24 Kyle Velez, RN [address] [facility] [place] [address] Registered Nurse Family Medicine 08/20/25 LamJuliannamelia 08/20/25 [facility] 07/26/24 Blaire Alcantara MD [facility] [address] [facility] [address] [place] [address] Medical Oncologist Hematology and Oncology 09/21/24 Jung Maxwell MD [facility] [address] [place] [address] [address] Consulting Physician Urology 09/21/24 Bryant Ferro DO Consulting Physician Cardiology 09/21/24 [facility] [address] [place] [address] Consulting Physician Nephrology 09/21/24 Denilson Fay MD, PhD [facility] [address] [place] [address] Consulting Physician Ophthalmology 09/21/24 [employer], FIELD SERVICE CONSULTANT Agency [address] [place] [address] Personal Care Services 09/21/24
--- OUTSIDE RECORDS SUMMARY | 2025-08-28 17:15 | XMS_ITS ---
Author Organization [employer] Address [address] [facility] 7t [place] [address] Care Team Providers Care Psychodramatist Name Role Phone Catherine Jon MD Primary Care Provider [phone] Kyle Velez RN Unavailable [phone] Mustapha Fritz Unavailable CM Complex Status:Outreach In Progress (Enrolling) Start date:08/20/2025 Enrollment reason:ADT Feed Overview ED- Pt went to [facility] ED on 08/17/25. Case Team Name Relationship Phone Kyle Velez RN(Responsible Staff) Registered Kiya ramírez [phone] Continued Care and Services Coordination
--- OUTSIDE RECORDS SUMMARY | 2025-08-28 17:15 | XMS_ITS | Encounter Summary ---
Author Organization [employer] Address [address] [place] [address] Care Team Providers Care Care Team Assistant Name Role Phone Catherine Jon MD Primary Care Provider [phone] Reason for Visit * Reason Onset Date Comments Prior Authorization 07/24/2025 08/07/25 Dr. Freddie Campoverde Encounter Details Date Type Department Care Team (Late st Contact Info) Description 07/24/2025 Telephone General Surgery - [address] [place] [address] Freddie Campoverde MD [address] [place] [phone] Social History Tobacco Use Types Packs/Day Years Used Date Smoking Tobacco: Never Assessed Comments Unknown Sex and Gender Information Value Date Recorded Sex Assigned at Not on file Legal Sex Female 3:43 PM EDT Gender Identity Not on file Sexual Orientation Not on file documented as of this encounter Functional Status * Calculated C-SSRS Risk Score (Lifetime/Recent) Answer Date of Assessment Author No Risk Indicated 08/21/2025 5:36 PM Neptali Roberts RN * [place] Suicide Severity Rating Scale (Screener/Recent Self-Report) Question Answer Date of Assessment Author 1. Wish to be (Past 1 Month) No 025 5:36 PM Elly Roberts, TYESHA 2. Non-Specific Active Suici anna Thoughts (Past 1 Month) No 08/21/2025 5:36 PM Elly Roberts, TYESHA 6. Suicidal Behavior (Lifetime) No 5:36 PM Elly Roberts RN documented as of this encounter Progress Notes * Saloni Sharp - 07/24/2025 2:57 PM EDT She is having surgery with Dr. Kingsley Campoverde on 08/07/25 at [facility]. She has Companion Canine for insurance thru the [employer]. I called and asked them for a [...] documented as of this encounter Care Teams Care Team Assistant Relationship Specialty Start Date End Date Catherine Jon MD [address] [place] [address] PCP - General Family Medicine 06/07/25 documented as of this encounter
--- OUTSIDE RECORDS SUMMARY | 2025-08-28 17:15 | XMS_ITS | Encounter Summary ---
Author Organization [employer] Address [address] [facility] 7t [place] [address] Care Team Providers Care Medical Review Specialist Name Role Phone Catherine Jon MD Primary Care Provider [phone] Kyle Velez RN Unavailable [phone] Isha Do Unavailable Kyle Velez RN Unavailable [phone] Mustapha Fritz Unavailable Encounter Details Date Type Department Care Team (Late st Contact Info) Description 03/02/[address] [facility] MED [facility] PEDS [address] [place] [address] Anne Gama LPN Social History Tobacco Use [...] on filedocumented in this encounter Care Teams Medical Review Specialist Relationship Specialty Start Date End Date Catherine Jon MD 505 [place] [address] PCP - General Family Medicine 09/21/24 Kyle Velez, RN 505 [place] [address] Registered Nurse Family Medicine 06/15/25 08/10/25 Isha Do 06/15/25 08/10/25 Kyle Velez, RN [address] [place] [address] Registered Nurse Family Medicine 08/20/25 Mustapha Fritz [facility]20[facility]25 [facility] Blaire Alcantara MD [facility] [address] [facility] [address] [place] [address] Medical Oncologist Hematology and Oncology 09/21/24 Jung Maxwell MD [facility] [address] [place] [address] [place] [address] Consulting Physician Urology 09/21/24 Bryant Ferro DO Consulting Physician Cardiology 09/21/24 [facility] [address] [place] [address] Consulting Physician Nephrology 09/21/24 Denilson Fay MD, PhD [facility] [address] [place], [place] [phone] Consulting Physician Ophthalmology 09/21/24 [employer], PLANT PROTECTION GUARD Agency [address] [place] [address] Personal Care Services 09/21/24 documented as of this encounter
--- OUTSIDE RECORDS SUMMARY | 2025-08-28 17:15 | XMS_ITS | Encounter Summary ---
Author Organization [employer] Address [address] [facility] 7t [place] [address] Care Team Providers Care Computer Sciences Professor Name Role Phone Catherine Jon MD Primary Care Provider [phone] Kyle Velez RN Unavailable [phone] Isha Do Unavailable Klye Velez RN Unavailable [phone] Mustapha Fritz Unavailable Reason for Visit * Reason Onset Date Comments Hospital Follow-up 04/11/2024 Encounter Details Date Type Department Care Team (Late st Contact Info) Description 04/11/2024 Telephone [facility] MEDICINE [address] [place], [place] [phone] Anne Talamantes DO 230 [place], [place] [phone] Hospital Follow-up Social History Tobacco Use Types [...] from pt requesting a HDF appt. Hospital: [facility] Date of admission: 04/07 Discharge date: 04/11 Diagnosed: Kidney Failure documented in this encounter Plan of Treatment Not on file documented as of this encounter Visit Diagnoses Not on filedocumented in this encounter Care Teams Computer Sciences Professor Relationship Specialty Start Date End Date Catherine Jon MD 505 [place] [address] PCP - General Family Medicine 09/21/24 Kyle Velez, RN 505 [place] [address] Registered Nurse Family Medicine 06/15/25 08/10/25 Isha Do 06/15/25 08/10/25 Kyle Velez, TYESHA 505 [place] [address] Registered Nurse Family Medicine 08/20/25 Mustapha Fritz 08/20/25 [facility] 07/26/24 Blaire Alcantara MD [facility] [address] [facility] [address] [place] [address] Medical Oncologist Hematology and Oncology 09/21/24 Jung Maxwell MD [facility] [address] [place] [address] Consulting Physician Urology 09/21/24 Bryant Ferro DO Consulting Physician Cardiology 09/21/24 [facility] [address] [place] [address] Consulting Physician Nephrology 09/21/24 Denilson Fay MD, PhD [facility] [address] [place], [place] [phone] Consulting Physician Ophthalmology 09/21/24 [employer], SUPERVISOR SHRIMP POND Agency 25 [place], [place] [phone] Personal Care Services 09/21/24 documented as of this encounter
--- OUTSIDE RECORDS SUMMARY | 2025-08-28 17:15 | XMS_ITS | Encounter Summary ---
Author Organization [employer] Address [address] [facility] 7t [place] [address] Care Team Providers Care Radiator Mechanic Name Role Phone Catherine Jon MD Primary Care Provider [phone] Kyle Velez RN Unavailable [phone] Isha Do Unavailable Kyle Velez RN Unavailable [phone] Mustapha Fritz Unavailable Reason for Visit * Reason Comments Med Refill Encounter Details Date Type Department Care Team ([facility] st Contact Info) Description 02/26/2023 Refill [facility] [address] [place], [place] [phone] Claribel Dalton MD 230 [place], [place] [phone] Type 2 diabetes mellitus with hyperglycemia, unspecified whether assistant terminal manager insulin use ([facility]/HCC) Social History Tobacco Use Types Packs/Day Years [...] with hyperglycemia, unspecified whether long-term insulin use (HCC) documented in this encounter Care Teams Radiator Mechanic Relationship Specialty Start Date End Date Catherine Jon MD [address] [place] [address] PCP - General Family Medicine 09/21/24 Kyle Velez, RN 505 [place] [address] Registered Nurse Family Medicine 06/15/25 08/10/25 Isha Do 06/15/25 08/10/25 Kyle Velez, RN 505 [facility] [place] [address] Registered Nurse Family Medicine 08/20/25 Mustapha Fritz 08/20/25 [facility] 07/26/24 Blaire Alcantara MD [facility] [address] [facility] [address] [place] [address] Medical Oncologist Hematology and Oncology 09/21/24 Jung Maxwell MD [facility] [address] [place] [address] Consulting Physician Urology 09/21/24 Bryant Ferro DO Consulting Physician Cardiology 09/21/24 [facility] [address] [place] [address] Consulting Physician Nephrology 09/21/24 Denilson Fay MD, PhD [facility] [address] [place], [place] 1300489 Consulting Physician Ophthalmology 09/21/24 [employer], AVIATION SUPPORT EQUIPMENT REPAIRER Agency 25 [place], [place] [phone] Personal Care Services 09/21/24 documented as of this encounter
--- OUTSIDE RECORDS SUMMARY | 2025-08-28 17:15 | XMS_ITS ---
Author Organization [employer] Address [address] [facility] 7t [place] [address] Care Team Providers Care Environmental Protection Forester Name Role Phone Catherine Jon MD Primary Care Provider [phone] Kyle Velez RN Unavailable [phone] Mustapha Fritz Unavailable CHW Complex Status:Outreach In Progress (Enrolling) Start date:08/20/2025 Enrollment reason:ADT Feed Overview ED- Pt went [place] [facility] [place] 08[place]17[place]. Case Team Name Relationship Phone Mustapha Fritz(Responsible Staff) [phone] Continued Care and Services Coordination
--- OUTSIDE RECORDS SUMMARY | 2025-08-28 17:15 | XMS_ITS | Encounter Summary ---
Author Organization [employer] Address [address] [facility] 7t [place] [address] Care Team Providers Care Belt Loop Machine Operator Name Role Phone Catherine Jon MD Primary Care Provider [phone] Kyle Velez RN Unavailable [phone] Mustapha Fritz Unavailable Reason for Visit * Reason Comments Med Refill Encounter Details Date Type Department Care Team (Late st Contact Info) Description 08/18/2025 Refill [facility] MED [facility] PEDS 505 [place], [place] [phone] Catherine Jon MD 505 [place], [place] [phone] Type 2 diabetes mellitus with hyperglycemia, unspecified whether nursing home insulin use (HCC) Social History Tobacco Use [...] encounter Miscellaneous Notes * Telephone Encounter - Catherine Jon MD - 08/22/2025 2:10 PM EST Chart notes signed, thankS! * Telephone Encounter - Liz Cain - 08/22/2025 1:48 PM EST Good afternoon Dr. Jon, please sign chart notes from 08/16 in order to proceed with referral. Thank you. documented in this encounter Plan of Treatment [...] Weekly blood pressure task No Peng Ng [place] Weekly blood pressure task Care Plan Weekly blood pressure task No Peng Ng [place] Weekly blood pressure task Care Plan Weekly blood pressure task No Peng Ng [place] Patient has diabetic eye disease Care Plan Patient has diabetic eye disease No Peng Ng [place] Patient has diabetic eye disease Care Plan Patient has diabetic eye disease No Peng Ng [place] Patient has diabetic eye disease Care Plan Patient has diabetic eye disease No Peng Ng [place] Patient has chronic kidney disease Care Plan Patient has chronic kidney disease No Peng Ng [place] Patient has chronic kidney disease Care Plan Patient has chronic kidney disease No Peng Ng [place] Patient has chronic kidney disease Care Plan Patient has chronic kidney disease No Peng Ng [place] Weekly blood pressure task Care Plan Weekly [...] 2 diabetes mellitus with hyperglycemia, unspecified whether ferry terminal agent insulin use (HCC) documented in this encounter [...] documented as of this encounter Care Teams Belt Loop Machine Operator Relationship Specialty Start Date End Date Catherine Jon MD 505 [place] [address] PCP - General Family Medicine 09/21/24 Kyle Velez, TYESHA 505 [place] [address] Registered Nurse Family Medicine 08/20/25 Mustapha Fritz 08/20/25 [facility] Blaire Alcantara MD [facility] [address] [place] [address] [address] [place] [address] Medical Oncologist Hematology and Oncology 09/21/24 Jung Maxwell MD [facility] [address] [place] [address] [place] [address] Consulting Physician Urology 09/21/24 Bryant Ferro DO Consulting Physician Cardiology 09/21/24 [facility] [address] [place] [address] Consulting Physician Nephrology 09/21/24 Denilson Fay MD, PhD [facility] 180 [place] [address] Consulting Physician Ophthalmology 09/21/24 [employer], ASSISTANT BRANCH OPERATIONS MANAGER Agency [address] [place], [place] [phone] Personal Care Services 09/21/24 documented as of this encounter
--- OUTSIDE RECORDS SUMMARY | 2025-08-28 17:15 | XMS_ITS | Encounter Summary ---
Author Organization [employer] Address [address] [facility] 7t [place] [address] Care Team Providers Care Wet Machine Cutter Name Role Phone Catherine Jon MD Primary Care Provider Kyle Velez RN Unavailable [phone] Isha Do Unavailable Kyle Velez RN Unavailable [phone] Mustapha Fritz Unavailable Reason for Visit * Reason Onset Date Comments Change PCP 08/03/2024 Encounter Details Date Type Department Care Team (Late st Contact Info) Description 08/03/2024 Telephone [facility] MEDICINE 230 [place], [place] [phone] Anne Talamantes DO 230 [place] [address] Change PCP Social History Tobacco [...] from pt stating she has moved to [place] and is requesting to change locations due to convince. If any questions you can contact pt at [phone]. (Bermudian Speaker) documented in this encounter Plan of Treatment Not on file documented as of this encounter Visit Diagnoses Not on filedocumented in this encounter Care Teams Wet Machine Cutter Relationship Specialty Start Date End Date Catherine Jon MD 505 [place] [address] PCP - General Family Medicine 09/21/24 Kyle Velez RN 505 [place] [address] Registered Nurse Family Medicine 06/15/25 08/10/25 Isha Do 06/15/25 08/10/25 Kyle Velez RN 505 [place] [address] Registered Nurse Family Medicine 08/20/25 Mustapha Fritz 08/20/25 [facility] 07/26/24 Blaire Alcantara MD [facility] On[facility] Center [address] [facility] [address] [place] [address] Medical Oncologist Hematology and Oncology 09/21/24 Jung Maxwell MD [facility] [address] [place] [address] [place] [address] Consulting Physician Urology 09/21/24 Bryant Ferro DO Consulting Physician Cardiology 09/21/24 [facility] [address] [place] [phone] Consulting Physician Nephrology 09/21/24 Denilson Fay MD, PhD [facility] 180 [place] [address] Consulting Physician Ophthalmology 09/21/24 [employer], DRAFTER MARINE Agency [address] [place] [address] Personal Care Services 09/21/24 documented as of this encounter
--- OUTSIDE RECORDS SUMMARY | 2025-08-28 17:15 | XMS_ITS | Encounter Summary ---
Author Organization [employer] Address 75 [facility] 7t [place] [address] Care Team Providers Care Inspector Agricultural Commodities Name Role Phone Catherine Jon MD Primary Care Provider [phone] Kyle Velez RN Unavailable [phone] Isha Do Unavailable Kyle Velez RN Unavailable [phone] Mustapha Fritz Unavailable Encounter Details Date Type Department Care Team (Late st Contact Info) Description 01/06/2024 Orders Only [facility] MEDICINE [address] [place], [place] [phone] Provider, MD Karoline Social History Tobacco Use [...] on filedocumented in this encounter Care Teams Inspector Agricultural Commodities Relationship Specialty Start Date End Date Catherine Jon MD [address] [facility] [place] [address] PCP - General Family Medicine 09/21/24 Kyle Velez, RN 505 [facility] [place] [address] Registered Nurse Family Medicine 06/15/25 08/10/25 Isha Do 06/15/25 08/10/25 Kyle Velez, RN [address] [facility] [place] [address] Registered Nurse Family Medicine 08/20/25 Mustapha Fritz 08/20/25 [facility] 07/26/24 Blaire Alcantara MD [facility] On[facility] Center [address] [place] [address] [address] [place] [address] Medical Oncologist Hematology and Oncology 09/21/24 Jung Maxwell MD [facility] Center [address] [place] [address] Consulting Physician Urology 09/21/24 Bryant Ferro DO Consulting Physician Cardiology 09/21/24 [facility] [address] [place] [address] Consulting Physician Nephrology 09/21/24 Denilson Fay MD, PhD [facility] [address] [place], [place] [phone] Consulting Physician Ophthalmology 09/21/24 [employer], SYSTEMS NAVIGATOR Agency [address] [place], [place] [phone] Personal Care Services 09/21/24 documented as of this encounter
== END 2025-08-28 16:07 | disposition home or self-care (01) ==
LOC: HO.US 16:06
PROVIDERS: PCP Family Medicine; Visit Provider Internal Medicine
DX: I82.C11 Acute embolism and thrombosis of right internal jugular vein (principal)
CPT/HCPCS: 93971

== ENCOUNTER → 2025-08-28 16:10 | Outpatient (BNV) | payer MEDICAID, SELFPAY | PROVIDERS: PCP Family Medicine; Visit Provider Radiology Body Imaging | DX: S40.021A Contusion of right upper arm, initial encounter (principal) | CPT/HCPCS: 93971 ==